=== PATIENT | female | born 1945 | race Two or more races ===

== ENCOUNTER 2024-03-30 13:37 | Inpatient (IN) | payer MEDICARE, MEDICAID, SELFPAY ==
[2024-03-30] VITALS (10 sets, daily range): BP systolic 108–129; BP diastolic 58–98; PULSE 62–127; RESP 13–25; TEMP 33.6–35.9; O2SAT 97–100; BMI 17.7
--- NOTE | 2024-03-30 13:41 | XR_ITS ---
Examination: AP chest single view TECHNIQUE: AP upright portable chest single view Exam date and time: March 30, 2024 1421 hours INDICATIONS: Shortness of breath today. FINDINGS: Early left perihilar pneumonia Normal heart size No pulmonary edema The osseous structures are demineralized IMPRESSION: Early left perihilar pneumonia
--- NOTE | 2024-03-30 13:41 | XR_ITS ---
Examination: CT brain head without contrast. 2-D sagittal coronal reconstructions Date and time of exam:March 30, 2024 at 1449 hours INDICATIONS: Onset altered mental status today CTDI: vol (mGy):43.9 DLP: (mGycm):881 Technique: Multiple CT axial sections of the brain have been obtained, 5 mm slice thickness. Contrast has not been administered. 2-D sagittal, coronal reconstructions have been obtained Low dose protocols were performed. One or more of the following dose reduction techniques were used; automated exposure control, adjustment of the mA and/or KV according to patient size, use of iterative reconstruction technique. Findings: No significant ventricular enlargement. Intra-axial or extra-axial hemorrhage density is not seen. No mass effect or midline shift Basal cisterns are not remarkable. Fourth ventricle is midline. Cranial vault intact. Impression: Negative for acute hemorrhage, mass effect or midline shift Advise clinical correlation and follow-up accordingly
--- NOTE | 2024-03-30 13:41 | EKG_ITS ---
[facility] Test Date: 2024-03-30 Pat Name: SUSAN ABEL Department: Room: - Gender: Female Signals Intelligence Analyst: : 1945 Requested By: Samuel Elias Order Number: [id number] Reading MD: Samuel Elias Measurements Intervals [place] Rate: 61 P: 80 TN: 155 QRS: 89 QRSD: 75 T: 79 QT: 405 QTc: 408 Interpretive Statements SINUS RHYTHM LOW QRS VOLTAGE IN EXTREMITY LEADS [QRS DEFLECTION < 0.5 mV IN LIMB LEADS] SEPTAL MYOCARDIAL INFARCTION , PROBABLY OLD [40+ ms Q WAVE IN V1/V2] No previous ECG available for comparison /store/S0/[id number].pdf
[2024-03-30 13:58] LABS: Base Excess 2 (-3-3); HCO3 25 mEq/L (20-26); Inspired O2, VO2 Liters 13 L/min; O2 Saturation 100 % (91-98); PCO2 34 mmHg (32.0-48.0); PO2 300 mmHg (83-108); pH, Arterial 7.48 (7.35-7.45)
[2024-03-30 14:01] LABS: Puncture Site Right Radial
[2024-03-30 14:02] LABS: Allen Test Performed/OK
[2024-03-30 14:13] LABS: Lactate (Lactic Acid) 1.8 mMol/L (0.4-2.0)
[2024-03-30 14:17] LABS: Basophils % (Auto) 0 % (0-2.5); Eosinophils % (Auto) 0 % (0-10); Hematocrit 27.9 % (36.0-46.0); Hemoglobin 9.5 g/dL (12.0-16.0); Immature Granulocytes % (Auto) 0 % (0-0); Immature Granulocytes Auto 0.06 Thou/mm3 (0.00-0.00); Lymphocytes # (Auto) 0.7 Thou/mm3 (1.0-4.8); Lymphocytes % (Auto) 5 % (10-50); Mean Corpuscular HGB Conc 34.1 g/dl (31.0-37.0); Mean Corpuscular Hemoglobin 31.4 pg (25.0-35.0); Mean Corpuscular Volume 92 fL (80-100); Monocytes # (Auto) 0.3 Thou/mm3 (0.0-0.8); Monocytes % (Auto) 2 % (0-12); Neutrophils % (Auto) 93 % (37-80); Nucleated Red Blood Cell % 0 /100 WBC (0); Platelet Count 176 Thou/mm3 (140-440); RDW Standard Deviation 49.5 fL (36.4-46.3); Red Blood Count 3.03 Miln/mm3 (4.00-5.20); White Blood Count 15.1 Thou/mm3 (3.6-11.0)
[2024-03-30] MEDS: SODIUM CHLORIDE 0.9% 1000 ML 1,000 ML 999 ML IV (14:26)
[2024-03-30] MEDS: cefTRIAXone/D5w 1gm IV premix 50 ML IV (14:29)
[2024-03-30 14:33] LABS: Sed Rate (ESR) 78 mm/hr (0-30)
--- NOTE | 2024-03-30 14:34 | PD.EDAMS ---
Altered Mental Status RME/HPI General Chief Complaint: Altered Mental Status Stated Complaint: AMS; LOW GLUCOSE Time Seen by Provider: 03/30/24 13:40 Arrival date/time: 03/30/24 13:37 RME / HPI RME / HPI narrative: This section includes all my notes and documentations, including HPI, PE, MDM, Procedure Notes, and PLAN. Samuel Norman MD HPI: 79 year old female with history of CVA with residual right sided deficits x 2 years ago, nonverbal at baseline, presents to the ED BIBA from home for altered mental status today. Per medics, family reported patient was found unresponsive on the couch. When they arrived, patient was a GCS of 3, maintaining her airway, hypotensive at 82 over palp, and had a BS of 13. Was given D10 and repeat BS was 96. On arrival to ED patient is moaning. No further history obtainable. There was no obvious trauma. Patient was last known well at 03:00 am. I obtained more history from the daughter when she arrived and I talked to her. Normally, patient has been able to ambulate with a walker despite her right-sided weakness, worsening noted in the past couple weeks. Normally, she is not verbal. They communicate with gestures and sign language. ROS: Unobtainable due to AMS. Physical Exam: General: Patient does not open her eyes. Patient makes only sounds, no words. Patient localizes to pain. Eyes: Conjunctivae and lids clear. EOMI. PERRL. ENT: No nasal congestion. Neck: Supple. No carotid bruit. No JVD. Heart: RRR. Lungs: No respiratory distress. Good air movement. No rhonchi, wheezing, rales. Abdomen: Soft and nontender. Legs: No clubbing, cyanosis, edema. Skin: Warm and dry. Neuro: GCS 8. Difficult exam due to AMS. Musculoskeletal: All major joints and bones are not tender with no limited ROM. I reviewed EMS notes. I reviewed all diagnostic test results. My interpretation of the EKG is sinus rhythm with nonspecific ST-T changes. My interpretation of the chest x-ray is infiltrates. My review of the head CT report is no acute findings. My review of the head/neck CTA report is 90% plus stenosis at right carotid bifurcation proximal to right internal carotid artery. Blood tests and urine tests remarkable for WBC 15.1, ESR 78, BUN 43, Cr 0.6, LA 1.8, Mg 1.4, troponin 0.109, CRP 15.4, and TSH 17.57. At this point, diagnoses include AMS, hypoglycemia, hypomagnesemia, elevated troponin, elevated TSH, pneumonia, hypotension, sepsis. Treatment here included Rocephin, Zithromax, IV fluid, MgSO4 2 gram IV. No significant improvement noted subjectively and objectively. I discussed the case with our telehealth neurologist and our hospitalist. About the presentation and exam and diagnostics and treatments here. And need of further care in the hospital. Will accept the patient. Samuel Norman MD Related Data Allergies Allergy/AdvReac Type Severity Reaction Status Date / Time No Known Allergies Allergy Verified 03/30/24 14:19 Review of Systems Review of Systems Systems Reviewed: All systems reviewed, normal except as documented Past Medical History Past Medical History NEUROLOGIC: Positive Cerebrovascular Accident (Jun 2023 Right deficeit) CARDIAC: Negative Cardiac Disorders RESPIRATORY: Negative Asthma GENITOURINARY: Negative Renal Disease ENDOCRINE: Positive Diabetes Mellitus Type 2 HEMATOLOGIC: Negative Sickle Cell Disease Social History SMOKING STATUS: Unknown if ever smoked ED Exam Narrative Physical exam: As noted in HPI Course Quality Measures Suspected type of Stroke: Non Acute Tenecteplase given: Reason(s) TPA not given: Outside the time window not given stroke Orders Category Date Time Status Bedside COVID-19 Antigen Test NOW Care 03/30/24 13:40 Active Bedside Influenza A&B Antigen Test NOW Care 03/30/24 13:[address] Screening NOW Care 03/30/24 14:51 Active EKG (ED ONLY) *Do not use* NOW Care 03/30/24 13:41 Completed [place] Routine Care 03/30/24 13:40 Ordered Saline [Insert IV] NOW Care 03/30/24 13:[address] angio stroke protocol Stat Exams 03/30/24 15:[address] head/brain wo con Stat Exams 03/30/24 13:41 Completed EKG (ED Only) Stat Exams 03/30/24 13:41 Draft XR chest 1V portable Stat Exams 03/30/24 13:41 Completed ABG [Arterial Blood Gas] Stat Lab 03/30/24 13:55 Completed Acetaminophen Stat Lab 03/30/24 14:05 Completed Alcohol, Blood Medical Stat Lab 03/30/24 14:05 Completed Ammonia Stat Lab 03/30/24 14:05 Completed Amylase Stat Lab 03/30/24 14:05 Completed BNP [B-Type Natriuretic Peptide] Stat Lab 03/30/24 14:05 Completed Blood Culture (Lab) Stat Lab 03/30/24 13:41 Ordered CBC Stat Lab 03/30/24 14:05 Completed CK [Creatine Kinase] Stat Lab 03/30/24 14:05 Completed CMP [Comprehensive Metabolic Panel] Stat Lab 03/30/24 14:05 Completed CRP [C-Reactive Protein] Stat Lab 03/30/24 14:05 Completed Drug Screen,Urine Stat Lab 03/30/24 15:58 Received ESR [Sed Rate (ESR)] Stat Lab 03/30/24 14:05 Completed Lactate (Lactic Acid) Stat Lab 03/30/24 14:05 Completed Lipase Stat Lab 03/30/24 14:05 Completed Magnesium Stat Lab 03/30/24 14:05 Completed Procalcitonin Stat Lab 03/30/24 14:05 Completed RSV [Respiratory Syncytial Virus Ag] Stat Lab 03/30/24 13:42 Ordered Salicylate Stat Lab 03/30/24 14:05 Completed TSH [Thyroid Stimulating Hormone] Stat Lab 03/30/24 14:05 Completed Troponin I Stat Lab 03/30/24 14:05 Completed UA [Urinalysis] Stat Lab 03/30/24 15:58 Completed Azithromycin Inj [Zithromax Inj] 500 mg Med 03/30/24 14:43 Discontinued Sodium Chloride 0.9% 250 ml [Ns] 250 ml IV X1 Magnesium Sulfate 2 GM Ivpb [Magnesium Sulfate Ivpb] Med 03/30/24 15:43 Active 2 gm in 50 ml IV X1 Sodium Chloride 0.9% 1000 ml [Ns] 1,000 ml Med 03/30/24 13:48 Discontinued IV 999 mls/hr cefTRIAXone/D5w 1gm IV premix [Rocephin/D5w 1gm IV Med 03/30/24 13:48 Discontinued premix] 50 ml IV X1 Reevaluation(s) Reevaluation #1: I spoke with patients daughter and obtained additional history Time: 15:00 Vital Signs Vital signs: Vital Signs Temperature 93.8 F L 03/30/24 13:45 Pulse Rate 62 03/30/24 13:45 Respiratory Rate 16 03/30/24 13:45 Blood Pressure 111/72 03/30/24 13:45 Pulse Oximetry (%) 100 03/30/24 13:45 Oxygen Delivery Method Room Air 03/30/24 13:45 Pulse ox is 100% on room air which is adequate. Altered Mental Status MDM Narrative MDM Narrative:: Alejandra Auguste am scribing for and in the presence of Dr. Norman. Patient data External records reviewed:: EMS form Clinical information provided by:: EMS and family (Daughter- adds to hpi) Social determinants that could affect healthcare access:: none Patient has the following chronic illnesses:: History of CVA How is presenting disease/condition affected by chronic disease/condition?: exacerbated by Evaluation data The following diagnostics were reviewed and interpreted by me:: lab results, radiology exam(s) and EKG tracing(s) (My interpretation of the EKG is: Sinus rhythm (61 bpm) with nonspecific ST-T changes. Samuel Norman MD) Lab and/or radiology exams considered but not ordered:: None Interpretation Summary: Hypoglycemia, hypomagnesemia, elevated troponin, elevated TSH, sepsis Medications / Prescriptions Medications or Prescriptions considered but not ordered:: None Medication administrations:: Medication Administration History Acetaminophen (Acetaminophen 325 Mg Tablet) 650 mg PO Q6H PRN PRN Reason: Fever >101.5 Stop: 04/29/24 16:16 Acetaminophen (Acetaminophen 325 Mg Tablet) 650 mg PO Q6H PRN PRN Reason: PAIN SCALE 1-3 (mild Stop: 04/29/24 16:16 Dextrose (Dextrose 50%-Water Inj 50 Ml Syringe) 25 ml IV Q15MIN PRN PRN Reason: BG 50-70 responsive npo pt Stop: 04/29/24 16:21 Dextrose (Dextrose 50%-Water Inj 50 Ml Syringe) 50 ml IV Q15MIN PRN PRN Reason: BG <50 OR BG <70 & pt unresponsive Stop: 04/29/24 16:21 Folic Acid (Folic Acid Inj 1 Mg/0.2 Ml) 1 mg IVP QDAY ROGER Stop: 04/29/24 16:44 Glucagon (Glucagon Inj 1 Mg Vial) 1 mg IM Q15MIN PRN PRN Reason: BG <70, and no IV access Magnesium Sulfate (Magnesium Sulfate Ivpb) 2 gm in 50 mls @ 25 mls/hr IV X1 ONE Stop: 03/30/24 17:42 Last Admin: 03/30/24 16:45 Dose: 25 mls/hr Documented By: THIERNO Magnesium Sulfate (Magnesium Sulfate Ivpb) 2 gm in 50 mls @ 25 mls/hr IV X1 ONE Stop: 03/30/24 18:29 Potassium Chloride (Kcl Ivpb) 10 meq in 100 mls @ 100 mls/hr IV Q1H ROGER Stop: 03/30/24 20:29 Dextrose/Sodium Chloride (D5-1/2ns) 1,000 mls @ 100 mls/hr IV BID [facility] Stop: 04/29/24 16:47 Insulin Human Lispro (Insulin Lispro (Admelog) 1 Unit/0.01 Ml Unit) 0 unit SC Q6HR ROGER; Protocol Stop: 04/29/24 16:59 Ondansetron HCl (Ondansetron Inj 2 Mg/Ml Inj 2 Ml) 4 mg IV Q6H PRN; Protocol PRN Reason: NAUSEA OR VOMITING Stop: 04/29/24 16:16 Pantoprazole Sodium (Pantoprazole Inj 40 Mg Vial) 40 mg IVP QDAY [facility] Stop: 04/29/24 16:29 Thiamine HCl (Thiamine Inj 100 Mg/Ml Vial 2 Ml) 100 mg IVP QDAY [facility] Stop: 04/29/24 16:44 Zinc Sulfate (Zinc Sulfate 220 Mg Capsule) 220 mg PO QDAY [facility] Stop: 04/04/24 16:44 Discontinued Medications Aspirin (Aspirin Ec 81 Mg Tabec) 81 mg PO QDAY [facility] Stop: 04/29/24 16:44 Ceftriaxone Sodium/Dextrose (Rocephin/D5w 1gm Iv Premix) 50 mls @ 100 mls/hr IV X1 ONE Stop: 03/30/24 14:17 Last Infusion: 03/30/24 16:10 Dose: Infused Documented By: Admin: 03/30/24 14:29 Dose: 100 mls/hr Documented By: GONZALO Sodium Chloride (Ns) 1,000 mls @ 999 mls/hr IV .Q1H1M ONE Stop: 03/30/24 14:48 Last Admin: 03/30/24 14:26 Dose: 999 mls/hr Documented By: GONZALO Azithromycin 500 mg/ Sodium (Chloride) 250 mls @ 250 mls/hr IV X1 ONE Stop: 03/30/24 15:42 Last Admin: 03/30/24 17:01 Dose: 250 mls/hr Documented By: THIERNO Sodium Chloride (Ns) 250 mls @ 999 mls/hr IV .Q16M ONE Stop: 03/30/24 16:32 Last Admin: 03/30/24 17:01 Dose: 999 mls/hr Documented By: THIERNO Sodium Chloride (Ns) 1,000 mls @ 80 mls/hr IV .[id number] ROGER Stop: 04/29/24 16:41 Insulin Human Lispro (Insulin Lispro (Admelog) 1 Unit/0.01 Ml Unit) 0 unit SC ACHS [facility]; Protocol Stop: 04/29/24 16:59 See above Consultations Consultation(s) initiated? (list below): Yes Consultation #1 (Physician, Specialty, Details): I spoke with teleneurologist Dr. Grayson. States patient is not a tpa candidate as her LKW is above the 4.5 hour window. Consultation #2 (Physician, Specialty, Details): I spoke with hospitalist Dr. Manning regarding admission. Discussed patients PMHx, HPI, ED course, exam findings, labs, and radiology results. The hospitalist agree to accept the patient for admission. Time: 16:17 Diagnosis Differential diagnosis altered mental status: alcoholic intoxication, altered mental status, delirium, dementia, hypoglycemia, hyponatremia, subarachnoid hemorrhage and sepsis Most likely diagnosis given after review of the tests above:: Altered mental status Hypoglycemia Pneumonia Hypomagnesemia Elevated TSH Elevated troponin Admission Indicated Admission indicated?: indicated Explain why admission is indicated or not indicated:: Sepsis and electrolyte abnormalities Admission Request Was there a request for admission?: Yes Admission Attestation Admission request attestation: Discussed case with Hospitalist service regarding admission. Discussed patients ED course, exam findings, labs, and radiology results. The Hospitalist [agrees,declines] to accept the patient for admission. Disposition Plan Disposition Plan: Admit Critical Care Time Critical Care Time Critical Care Time: Yes Total Critical Care Time (min.): 35 Attestation: The high probability of sudden, clinically significant deterioration in the patient's condition required the highest level of my preparedness to intervene urgently. The services I provided to this patient were to treat and/or prevent clinically significant deterioration. Services included the following: chart data review, reviewing nursing notes and/or old charts, documentation time, information technology consultant collaboration regarding findings and treatment options, medication orders and management, direct patient care, vital sign assessments and ordering, interpreting and reviewing diagnostic studies and lab tests. Aggregate critical care time includes only time during which I was engaged in work directly related to the patient's care, as described above, whether at bedside or elsewhere in the Emergency Department. It did not include time spent performing other reported procedures or the services of residents, students, nurses or physician assistants. Discharge Plan Plan Patient Disposition: Admit Acute Care w/in Hospital Problem List Clinical Impression: Altered mental status, Hypoglycemia, Pneumonia, Hypomagnesemia, Elevated TSH, Elevated troponin
[2024-03-30 14:47] LABS: Ammonia 16 uMol/L (11-32)
[2024-03-30 14:53] LABS: B-Type Natriuretic Peptide 69 pg/mL (0-100)
--- NOTE | 2024-03-30 15:12 | XR_ITS ---
Examination: CTA carotids with intravenous contrast CTA brain, head with intravenous contrast. 2-D sagittal, coronal reconstructions. 3-D reconstructions. Exam date and time: March 30, 2024 1521 hours INDICATIONS: Stroke alert, onset focal neurologic deficit today CTDI: vol (mGy) 13.8 DLP: (mGycm) 379 Technique: Multiple CTA axial brain, head carotid images post intravenous contrast injection 75 cc, [id number]. 2-D sagittal, coronal reconstructions. 3-D reconstructions, 3-D post processing including vascular maximum intensity projection images. Low dose protocols were performed. One or more of the following dose reduction techniques were used; automated exposure control, adjustment of the mA and/or KV according to patient size, use of iterative reconstruction technique. Findings: Small focus parenchymal disease right upper lobe axial image 216 90% stenosis right carotid bifurcation and proximal right internal carotid artery Distal right internal carotid artery including petrous portion intact No significant left common carotid carotid bifurcation or internal carotid artery stenoses Dominant right vertebral artery with no critical stenoses No large vessel occlusions involving M1 segments middle cerebral arteries and anterior cerebral arteries basilar artery or posterior cerebral arteries IMPRESSION: 90% plus stenosis right carotid bifurcation proximal right internal carotid artery No cerebral large vessel arterial occlusions
[2024-03-30 15:37] LABS: Acetaminophen < 2.0 mcg/mL (10.0-20.0); Alanine Aminotransferase 27 U/L (10-49); Albumin, Serum 3.2 gm/dL (3.4-4.8); Albumin/Globulin Ratio 1.1 (1.2-2.2); Alcohol, Blood Medical < 3.0 mg/dL (0-10.0); Alkaline Phosphatase 141 U/L (46-116); Amylase 45 U/L (30-118); Anion Gap 10 (7-16); Aspartate Amino Transferase 31 U/L (0-34); BUN/Creatinine Ratio 72 Ratio (12-20); Bilirubin,Total 0.4 mg/dL (0.3-1.2); Blood Urea Nitrogen 43 mg/dL (9-23); C-Reactive Protein 15.4 mg/dL (0.0-0.9); Calcium 8.7 mg/dL (8.3-10.6); Calcium (Corrected) 9.3 mg/dL (8.5-10.1); Carbon Dioxide 23.6 mMol/L (20.0-31.0); Chloride 110 mMol/L (98-107); Creatine Kinase 82 U/L (34-171); Creatinine (Component) 0.6 mg/dL (0.6-1.3); Globulin 2.8 gm/dL (2.3-3.5); Glucose 155 mg/dL (74-106); Lipase 34 U/L (12-53); Magnesium 1.4 mg/dL (1.6-2.6); Osmolality,Calculated 300 (275-295); Potassium 3.4 mMol/L (3.4-5.1); Procalcitonin 1.35 ng/ml (0.0-0.49); Salicylate < 3.0 mg/dL; Sodium 144 mMol/L (136-145); Thyroid Stimulating Hormone 17.57 uIU/mL (0.55-4.78); eGFR > 60 See Note
--- NOTE | 2024-03-30 15:37 | PD.TNEURO ---
Tele Neuro Consultation Consultation Date 03/30/24 Most Recent Vital Signs Last Vital Signs Temp 93.8 F L 03/30/24 13:45 Pulse 62 03/30/24 13:45 Resp 16 03/30/24 13:45 BP 111/72 03/30/24 13:45 Pulse Ox 100 03/30/24 13:45 O2 Del Method Room Air 03/30/24 13:45 Consultation Narrative [facility] Tele[facility]urology Consult [facility] Patient Name:???Maricruz Rudd Date of :???1945 Identification Number:??? Date of Service:???03/30/2024 15:18:31 Diagnosis:?R41.0 - Disorientation, unspecified Impression: ?79 y/o woman with h/o HTN, DM and stroke (residual right sided weakness) who presents to the ED with AMS and hypoglycemia (13) and hypothermia. No focal deficits on exam. Our recommendations are outlined below. Recommendations: ? Stroke/Telemetry Floor ? Neuro Checks ? Bedside Swallow Eval ? DVT Prophylaxis ? IV Fluids, Normal Saline ? Head of Bed 30 Degrees ? Euglycemia and Avoid Hyperthermia (PRN Acetaminophen) ? Initiate or continue Aspirin 81 MG daily ?ICU admission ?Hypothermia/Sepsis work-up as per ED and primary team Sign Out: ? Discussed with Emergency Department Provider Advanced Imaging: CTA Head and Neck Completed. Advanced neuroimaging reviewed and discussed with the ED attending (Dr. Norman) . No proximal intracranial LVO and no carotid occlusion as per my review. Not a thrombectomy candidate. Formal radiology read pending and to be f/u by the ED attending. Please call with any questions. Metrics: Last Known Well: 03/30/2024 03:00:00 Dispatch Time: 03/30/2024 15:18:31 Arrival Time: 03/30/2024 11:45:00 Initial Response Time: 03/30/2024 15:20:46Symptoms: AMS. Initial patient interaction: 03/30/2024 15:28:42 NIHSS Assessment Completed: 03/30/2024 15:30:00Patient is not a candidate for Thrombolytic. Thrombolytic Medical Decision: 03/30/2024 15:30:02Patient was not deemed candidate for Thrombolytic because of following reasons: LKW outside 4.[address] head showed no acute hemorrhage or acute core infarct. Primary Provider Notified of Diagnostic Impression and Management Plan on: 03/30/2024 15:30:20 History of Present Illness:Patient is a 79 year old Female. Patient was brought by EMS for symptoms of AMS. 79 y/o woman with h/o HTN, DM and stroke (residual right sided weakness) who presents to the ED with AMS and hypoglycemia (13) and hypothermia. Emergent telestroke consult requested. Last reported normal at 0300 as per patient's daughter at bedside. . Patient is bed bound at baseline and nonverbal. CT brain, CTA head and CTA neck reviewed and case discussed with Dr. Norman (ED attending) at the bedside. Medications: No Anticoagulant use? No Antiplatelet use Reviewed EMR for current medications Allergies:? Allergies Unable To Obtain Due To:?Patient Is Confused Social History: Unable To Obtain Due To Patient Status :?Patient Is Confused Family History: Family History Cannot Be Obtained Because:Patient Is Confused ROS :?ROS Cannot Be Obtained Because:? Patient Is Confused Past Surgical History: Past Surgical History Cannot Be Obtained Because: Patient Is Confused Examination: BP(129/76),?Pulse(91),?Blood Glucose(211) 1A: Level of Consciousness - Movements to Pain?+ 2 1B: Ask Month and Age - Could Not Answer Either Question Correctly?+ 2 1C: Blink Eyes & Squeeze Hands - Performs 0 Tasks?+ 2 2: Test Horizontal Extraocular Movements - Normal?+ 0 3: Test Visual Myesr - No Visual Loss?+ 0 4: Test Facial Palsy (Use Grimace if Obtunded) - Normal symmetry?+ 0 5A: Test Left Arm Motor Drift - No Effort Against [place]?+ 3 5B: Test Right Arm Motor Drift - No Effort Against [place]?+ 3 6A: Test Left Leg Motor Drift - No Effort Against [place]?+ 3 6B: Test Right Leg Motor Drift - No Effort Against [place]?+ 3 7: Test Limb Ataxia (FNF/Heel-Chahal) - Does Not Understand?+ 0 8: Test Sensation - Complete Loss: Cannot Sense Being Touched At All?+ 2 9: Test Language/Aphasia - Mute/Global Aphasia: No Usable Speech/Auditory Comprehension?+ 3 10: Test Dysarthria - Mute/Anarthric?+ 2 11: Test Extinction/Inattention - No abnormality?+ 0 NIHSS Score:?25 Pre-Morbid Modified Zenobia Scale:5 Points = Severe disability; bedridden, incontinent and requiring constant nursing care and attention Spoke with :?Dr. Norman This consult was conducted in real time using interactive audio and video technology. Patient was informed of the technology being used for this visit and agreed to proceed. Patient located in hospital and provider located at home/office setting. Patient is being evaluated for possible acute neurologic impairment and high probability of imminent or life-threatening deterioration. I spent total of 20 minutes providing care to this patient, including time for face to face visit via telemedicine, review of medical records, imaging studies and discussion of findings with providers, the patient and/or family. Dr Bhavin Grayson [facility] For Inpatient follow-up with [facility] physician please call [facility] at . As we are not an outpatient service for any post hospital discharge needs please contact the hospital for assistance. If you have any questions for the [facility] physicians or need to reconsult for clinical or diagnostic changes please contact us via [facility] at .
[2024-03-30 15:39] LABS: Troponin I 0.109 ng/mL (0.0-0.045)
[2024-03-30 16:04] LABS: Collection Type, Urine Clean Catch
[2024-03-30 16:15] LABS: Bilirubin,Urine Negative (Negative); Blood,Urine Negative (Negative); Clarity,Urine Clear (Clear/Hazy); Color,Urine Yellow (Lt Yel-Yel); Glucose, Urine Trace (Negative); Ketones,Urine Negative (Negative); Leukocyte Esterase,Urine Negative (Negative); Nitrite,Urine Negative (Negative); Protein,Urine 1+ (Neg - Trace); RBC,Urine 1 /hpf (0-3); Specific Gravity,Urine 1.028 (1.001-1.035); Squamous Epithelial Cell,Urine < 1 /hpf (0-5); WBC,Urine 1 /hpf (0-5)
--- NOTE | 2024-03-30 16:27 | XR_ITS ---
Examination: CT abdomen and pelvis without contrast. Coronal 3-D reconstructions. Sagittal 2-D reconstructions. Date and time of exam:March 30, 2024 at 1735 hrs. Indications: Difficulty urinating today, altered mental status CTDI: vol (mGy): 4.13 DLP: (mGycm): 218 Technique: Axial images of the abdomen have been obtained, 3 mm slice thickness Intravenous contrast material has not been administered. Low dose protocols were performed. One or more of the following dose reduction techniques were used; automated exposure control, adjustment of the mA and/or KV according to patient size, use of iterative reconstruction technique. Findings: Mild right significant left base pneumonia No focal liver lesions Gallbladder is abnormally distended Common bile duct 7 mm No definite pancreatic mass Heavy abdominal aortic calcification no aneurysmal dilatation No hydronephrosis No pericecal inflammatory change Moderate to large amounts of stool throughout the colon especially rectosigmoid, with prominent rectal wall thickening Distended urinary bladder Atrophic uterus No adnexal mass Moderate osteopenia Impression: Mild right significant left base pneumonia Abnormally distended gallbladder, recommend hepatobiliary sonography follow-up No hydronephrosis Moderate to large amounts of stool throughout the colon, especially rectosigmoid with prominent rectal wall thickening, differential would include proctitis, rectal tumor not excluded, recommend direct inspection Distended urinary bladder
--- NOTE | 2024-03-30 16:36 | PD.RESHP ---
Documentation for date of: 03/30/24 HPI History of Present Illness Chief complaint: altered mental status History of present illness: Patient is non-verbal hx taken from daughter and chart review 79 y/o F with PMHx of CVA 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 Per daughter patient was able to do activities of daily living 2 months ago, including walking with a walker, eating by herself, but has progressively declined until 1 week ago were she acutely declined and developed urinary incontinence. She also has decreased po intake, daughter states patient has been hiding food under the couch. Today around 3am patient was found by daughter unresponsive and called EMS. On arrival patient was found with GCS of 3 and with BS of 13 was given D10 and repeat BS was 96. Patient is non-verbal at baseline and communicate with hand gestures. ED course: On arrival Vital significant for hypothermia 93.8, rest of vitals nl, Labs significant for hypoglycemia of 13 which after D10 was repeated and increased to 96. CXR showed some pneumonia. UA was negative. EKG is sinus rhythm, Head CT was negative for Negative for acute hemorrhage, mass effect or midline shift, Head/Neck CTA showed 90% plus stenosis right carotid bifurcation proximal right internal carotid artery, No cerebral large vessel arterial occlusions PMHx: CVA, Hypertension, HLD, Hypothyroidism, Diabetes PSHx: none Social Hx: unknown Review of Systems Review of Systems ROS Unobtainable: unobtainable due to mental status and unobtainable due to medical condition Exam Vital Signs Temp Pulse Resp BP Pulse Ox O2 Del Method O2 Flow Rate 92.5 F L 72 13 129/98 H 100 Nasal Cannula 6 03/30/24 15:45 03/30/24 16:29 03/30/24 16:29 03/30/24 16:29 03/30/24 16:29 03/30/24 16:29 03/30/24 16:29 Narrative Exam Physical Exam GENERAL: NAD, frail, cachectic, temporal wasting HEENT: dry mucosa. Eyes open, symmetrical, & clear CARDIO: No chest pain on palpation. Heart RRR, no obvious murmurs PULM: No noted coughing/dyspnea. Lungs CTA B/L, no R/W/R GI: Abdomen soft, nondistended, no pain on palpation. BSx4 URO/CREATIVE PRODUCER:: No further abnormalities noted. Phelps catheter SKIN/MSK/EXT: pressure ulcer on sacrum and buttocks, no pain on palpation. Pedal pulses present B/L NEURO: unable to assess Results: Labs 04/02/24 04:40 04/02/24 04:40 Labs: Short CBC 03/30/24 Range/Units 14:05 WBC 15.1 H (3.6-11.0) Thou/mm3 Hgb 9.5 L (12.0-16.0) g/dL Hct 27.9 L (36.0-46.0) % Plt Count 176 (140-440) Thou/mm3 BMP 03/30/24 14:05 Sodium 144 Potassium 3.4 Chloride 110 H Carbon Dioxide 23.6 BUN 43 H Creatinine 0.6 Glucose 155 H Calcium 8.7 Cardiac Enzymes 03/30/24 Range/Units 14:05 Total Creatine Kinase 82 (34-171) U/L Troponin I 0.109 H* (0.0-0.045) ng/mL Liver Function 03/30/24 Range/Units 14:05 Total Bilirubin 0.4 (0.3-1.2) mg/dL AST 31 (0-34) U/L ALT 27 (10-49) U/L Alkaline Phosphatase 141 H (46-116) U/L Albumin 3.2 L (3.4-4.8) gm/dL Urine 03/30/24 Range/Units 15:58 Urine Color Yellow (Lt Yel-Yel) Urine Clarity Clear (Clear/Hazy) Urine pH 6.0 (5.0-7.0) Ur Specific [place] 1.028 (1.001-1.035) Urine Protein 1+ A (Neg - Trace) Urine Glucose (UA) Trace (Negative) ABG Interpretation ABG results: 03/30/24 13:55 ABG pH 7.48 H ABG pCO2 34 ABG pO2 300 H ABG HCO3 25 ABG O2 Saturation 100 H ABG Base Excess 2 Quality Measures Quality Measures stroke Suspected type of Stroke: Unknown at this time Tenecteplase given: Reason(s) Tenecteplase not given: Outside the time window not given Rehab services: PT evaluation ordered VTE Prophylaxis: pharmaceutical Antithrombotic by day 2:: not indicated (describe) Statin ordered: not ordered Anticoagulation ordered for A-fib or flutter (current or hx): not indicated Advance care planning discussed with:: patient and child Medications Home Medications and Allergies Home Medications ?Medication ?Instructions ?Recorded ?Confirmed ?Type ascorbic acid (vitamin C) 1,000 mg 1,000 mg PO DAILY 03/31/24 03/31/24 History tablet atorvastatin 40 mg tablet 40 mg PO HS 03/31/24 03/31/24 History cholecalciferol (vitamin D3) 25 25 mcg PO DAILY 03/31/24 03/31/24 History mcg (1,000 unit) capsule cyanocobalamin (vitamin B-12) 3,000 mcg PO DAILY 03/31/24 03/31/24 History 1,000 mcg tablet glyburide 5 mg tablet 5 mg PO DAILY 03/31/24 03/31/24 History levothyroxine 50 mcg tablet 50 mcg PO HANNAH 03/31/24 03/31/24 History metformin 625 mg tablet 625 mg PO TID 03/31/24 03/31/24 History Allergies Allergy/AdvReac Type Severity Reaction Status Date / Time No Known Allergies Allergy Verified 03/30/24 14:19 Visit Medications Acetaminophen (Acetaminophen 325 Mg Tablet) 650 mg PO Q6H PRN PRN Reason: Fever >101.5 Stop: 04/29/24 16:16 Acetaminophen (Acetaminophen 325 Mg Tablet) 650 mg PO Q6H PRN PRN Reason: PAIN SCALE 1-3 (mild Stop: 04/29/24 16:16 Dextrose (Dextrose 50%-Water Inj 50 Ml Syringe) 25 ml IV Q15MIN PRN PRN Reason: BG 50-70 responsive npo pt Stop: 04/29/24 16:21 Dextrose (Dextrose 50%-Water Inj 50 Ml Syringe) 50 ml IV Q15MIN PRN PRN Reason: BG <50 OR BG <70 & pt unresponsive Stop: 04/29/24 16:21 Glucagon (Glucagon Inj 1 Mg Vial) 1 mg IM Q15MIN PRN PRN Reason: BG <70, and no IV access Magnesium Sulfate (Magnesium Sulfate Ivpb) 2 gm in 50 mls @ 25 mls/hr IV X1 ONE Stop: 03/30/24 17:42 Magnesium Sulfate (Magnesium Sulfate Ivpb) 2 gm in 50 mls @ 25 mls/hr IV X1 ONE Stop: 03/30/24 18:29 Potassium Chloride (Kcl Ivpb) 10 meq in 100 mls @ 100 mls/hr IV Q1H [facility] Stop: 03/30/24 20:29 Insulin Human Lispro (Insulin Lispro (Admelog) 1 Unit/0.01 Ml Unit) 0 unit SC ACHS [facility]; Protocol Stop: 04/29/24 16:59 Ondansetron HCl (Ondansetron Inj 2 Mg/Ml Inj 2 Ml) 4 mg IV Q6H PRN; Protocol PRN Reason: NAUSEA OR VOMITING Stop: 04/29/24 16:16 Pantoprazole Sodium (Pantoprazole Inj 40 Mg Vial) 40 mg IVP QDAY [facility] Stop: 04/29/24 16:29 Discontinued Medications Ceftriaxone Sodium/Dextrose (Rocephin/D5w 1gm Iv Premix) 50 mls @ 100 mls/hr IV X1 ONE Stop: 03/30/24 14:17 Last Infusion: 03/30/24 16:10 Dose: Infused Sodium Chloride (Ns) 1,000 mls @ 999 mls/hr IV .Q1H1M ONE Stop: 03/30/24 14:48 Last Admin: 03/30/24 14:26 Dose: 999 mls/hr Azithromycin 500 mg/ Sodium (Chloride) 250 mls @ 250 mls/hr IV X1 ONE Stop: 03/30/24 15:42 Sodium Chloride (Ns) 250 mls @ 999 mls/hr IV .Q16M ONE Stop: 03/30/24 16:32 Assessment & Plan Plan 79 y/o F with PMHx of CVA 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 Per daughter patient was able to do activities of daily living 2 months ago, including walking with a walker, eating by herself, but has progressively declined until 1 week ago were she acutely declined and developed urinary incontinence. She also has decreased po intake, daughter states patient has been hiding food under the couch. Today around 3am patient was found by daughter unresponsive and called EMS. On arrival patient was found with GCS of 3 and with BS of 13 was given D10 and repeat BS was 96. Patient is non-verbal at baseline and communicate with hand gestures. #Acute metabolic encephalopathy #Hypoglycemia #Hypothermia #CVA- low suspicion likely secondary to hypoglycemia in the setting of sulfonylurea use hypothermia also likely due to hypoglycemia Per daughter patient is able to do ADLs until 2months ago where she has progressively declined and then 1 week ago she acutely declined Patient saw her PCP about 2 months ago, was not given new medications but frequency changes were made to diabetes regimen On admission was found with hypoglycemia (13) and GSC 3, improved after D10 administration to 96, and is closer to baseline Stroke protocol was activated, Head CT showed Negative for acute hemorrhage, mass effect or midline shift Head/Neck CTA: 90% plus stenosis right carotid bifurcation proximal right internal carotid artery, No cerebral large vessel arterial occlusions Tele neurology recommended DVT prophylaxis as well as Aspirin - on D5/0.45 @ 80ml/hr - Aspirin per rectum - MRI brain pending - Speech therapy eval pending - Physical therapy eval pending - Hydrocortisone 50mg x1 - BS checks q 6 hours - Neuro checks q4 hours - Neurology consulted, appreciate recommendations - aspiration precautions - HOB>30 #Leukocytosis #Possible Sepsis Patient with hypothermia, elevated CRP, procalcitonin and WBCs, with altered mental status UA is negative, CXR unlikely to be pneumonia Patient received antibiotic therapy in ED no need for Antibiotics at this time daughter states patient has been having urinary incontinence and trouble urinating - CT abdomen pelvis ordered - received 1L NS - currently on D5/0.45 NS - Urine Cx pending - blood cultures pending #Cachexia #Failure to thrive Patient has been having low PO intake for past few weeks, per daughter patient has been hiding food under the couch BMI is 17.8 - phos checks daily - folic and thiamine IV - zinc ordered - monitor for refeeding syndrome #Hypothyroidism patient has had low po intake past few weeks- months TSH found elevated - F/u Free T4 - IV levothyroxine #Hypomagnesemia - replete as needed #Diabetes - insulin sliding scale - q6 BS check - hypoglycemia protocol in place Case discussed with my senior Dr. Calvo PGY-[address] Nigel Head MD PGY-1 Disposition: Tele Fluids: D5/0.45 NS Feeding: NPO till swallow eval Thrombo prophylaxis: Heparin Gastric Ulcer prophylaxis: Pantoprazole 40 mg IV daily CODE STATUS: Full code Senior resident attestation: Patient evaluated and examined at the bedside, plan of care discussed with rest of the team including my attending physician, except as noted. #Acute encephalopathy: possibly metabolic due to hypoglycemia in the setting of sulfonylurea use and poor PO intake. #Stroke r/o: MRI pending , neuro recs appreceiated. #failure to thrive: GI consult for PEG tube placement Quresh PGY2 Attending Provider Attestation/Addendum 79-year-old female with multiple comorbidities including hypertension, hyperlipidemia, type 2 diabetes mellitus with subsequent ischemic CVA with right-sided residual deficits and aphasia who is nonverbal at baseline who brought in by family for altered mentation. Per daughter, patient was able to do activities of daily living 2 months ago including walking with her walker and feeding herself however in the past couple weeks she has been having altered mentation and then bedbound. In the ER, patient was noted to have a GCS of 3 with blood sugars of 13 subsequently received dextrose and subsequently mentation slightly improved and admitted for acute metabolic encephalopathy secondary to hypoglycemia and stroke workup. I reviewed above note and agree with findings and plans. I have also personally examined the patient with medicine team and went over assessment and plan with medical team including sports management intern and resident physician.
[2024-03-30] MEDS: Magnesium Sulfate 2 GM Ivpb 2 GM/50 ML BAG IV ×2 (16:45→20:00)
[2024-03-30] MEDS: SODIUM CHLORIDE 0.9% 250 ML 250 ML 999 ML IV (17:01)
[2024-03-30] MEDS: AZITHROMYCIN INJ 500 MG in SODIUM CHLORIDE 0.9% 250 ML 250 ML 250 MG IV (17:01)
[2024-03-30 17:57] LABS: Amphetamine/Methamp Scrn,U Negative (Negative); Barbiturate Screen,Urine Negative (Negative); Benzodiazepines Screen,Urine Negative (Negative); Benzoylecgonine Screen, Ur Negative (Negative); Fentanyl Screen,Urine Negative (Negative); Opiate Screen,Urine Negative (Negative); THC Screen,Urine Negative (Negative)
--- NOTE | 2024-03-30 18:18 | PC.LAC ---
Patient absorbent pad soiled of urine, absorbent pad changed, patient repositioned in POC, call light within reach.
[2024-03-30 18:28] LABS: Respiratory Syncytial Virus Ag Negative (Negative)
[2024-03-30 19:21] LABS: Troponin I 0.154 ng/mL (0.0-0.045)
[2024-03-30] MEDS: POTASSIUM CHL 10 mEq IVPB 10 MEQ/100 ML BAG 100 MEQ IV ×4 (19:28→23:30)
[2024-03-30] MEDS: PANTOPRAZOLE INJ 40 MG VIAL IVP (19:28)
[2024-03-30] MEDS: THIAMINE INJ 100 MG/ML VIAL 2 ML IVP (19:32)
[2024-03-30] MEDS: FOLIC ACID INJ 1 MG/0.2 ML IVP (19:33)
[2024-03-30] MEDS: DEXTROSE 5%-0.45% NS 1,000 ML 100 ML IV (19:34)
[2024-03-30 19:39] LABS: Free T4 (Free Thyroxine) 0.44 ng/dL (0.89-1.76)
[2024-03-30] MEDS: bisacodyL 10 MG SUPP PR (19:42)
[2024-03-30] MEDS: ASPIRIN 300 MG SUPP PR (19:42)
[2024-03-30] MEDS: HEPARIN SOD INJ 5000 UNIT/ML VIAL SC (19:43)
--- NOTE | 2024-03-30 20:55 | PD.IMCONS ---
HPI Data of Consult Requesting Physician: Tony Manning MD Primary Care Provider: Physician No Primary/Family Consult Narrative Reason for consult: Pain abdomen abnormal CT AP History of present illness: 79 years old female brought to the emergency room because of the altered mental status was found to have a glucose of 13 on admission and hypothermia with a temperature 93.8 She was given D10 and D50 CT head did not show any acute infarct or masses Head and neck CTA showed 90% stenosis of the right carotid bifurcation Patient does have a previous history of CVA with right-sided motor weakness which is residual nonverbal She also has a history of diabetes mellitus type 2 hypertension She did complain of abdominal pain for which CT scan of the abdomen pelvis done which showed thickening of the rectal wall as well as a lot of stool burden and impaction I been consulted cc:: cc: Tony Manning MD Review of Systems Review of Systems ROS Unobtainable: unobtainable due to medical condition Past Medical History Surgical History OTHER SURGICAL HX: As in the history of present illness Meds Home Medications and Allergies Allergies Allergy/AdvReac Type Severity Reaction Status Date / Time No Known Allergies Allergy Verified 03/30/24 14:19 Exam Vital Signs Temp Pulse Resp BP Pulse Ox O2 Del Method O2 Flow Rate 96.6 F L 113 H 20 111/77 100 Nasal Cannula 3 03/30/24 20:02 03/30/24 20:02 03/30/24 20:02 03/30/24 20:02 03/30/24 20:02 03/30/24 20:02 03/30/24 20:02 Constitutional Comments: Chronically ill-appearing Routine Respiratory Exam Comments: Normal to auscultation Routine Abdominal Exam Comments: Lower abdominal tenderness no rebound Results Labs 03/30/24 14:05 03/30/24 14:05 Labs: Short CBC 03/30/24 Range/Units 14:05 WBC 15.1 H (3.6-11.0) Thou/mm3 Hgb 9.5 L (12.0-16.0) g/dL Hct 27.9 L (36.0-46.0) % Plt Count 176 (140-440) Thou/mm3 BMP 03/30/24 14:05 Sodium 144 Potassium 3.4 Chloride 110 H Carbon Dioxide 23.6 BUN 43 H Creatinine 0.6 Glucose 155 H Calcium 8.7 Cardiac Enzymes 03/30/24 03/30/24 Range/Units 14:05 18:19 Total Creatine Kinase 82 (34-171) U/L Troponin I 0.109 H* 0.154 H* (0.0-0.045) ng/mL Liver Function 03/30/24 Range/Units 14:05 Total Bilirubin 0.4 (0.3-1.2) mg/dL AST 31 (0-34) U/L ALT 27 (10-49) U/L Alkaline Phosphatase 141 H (46-116) U/L Albumin 3.2 L (3.4-4.8) gm/dL Urine 03/30/24 Range/Units 15:58 Urine Color Yellow (Lt Yel-Yel) Urine Clarity Clear (Clear/Hazy) Urine pH 6.0 (5.0-7.0) Ur Specific [place] 1.028 (1.001-1.035) Urine Protein 1+ A (Neg - Trace) Urine Glucose (UA) Trace (Negative) ABG Interpretation ABG results: 03/30/24 13:55 ABG pH 7.48 H ABG pCO2 34 ABG pO2 300 H ABG HCO3 25 ABG O2 Saturation 100 H ABG Base Excess 2 Assessment and Plan Additional Assessment & Plan Additional Plan: # Abnormal CT scan of the abdomen pelvis showing thickening of the rectal wall and stool impaction in increased stool burden Plan GoLytely to clean the stool burden out Consider colonoscopy once patient is clear Clear liquid diet Will follow the patient Other medical problems include # Metabolic encephalopathy # ALOC # Hypoglycemia # Hypothermia # History of CVA with right-sided motor weakness # 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
[2024-03-30] MEDS: HYDROCORTISONE SOD SUCC INJ 100 MG VIAL 50 MG IV (20:57)
[2024-03-30] MEDS: LEVOTHYROXINE INJ 100 mCg VIAL 50 MCG IV (21:15)
[2024-03-31] VITALS (8 sets, daily range): BP systolic 95–112; BP diastolic 50–81; PULSE 74–123; RESP 18–21; TEMP 36–36.5; O2SAT 93–99; BMI 18.1
[2024-03-31 01:22] LABS: Troponin I 1.033 ng/mL (0.0-0.045)
[2024-03-31 02:58] LABS: Vitamin B12 > 2000 pg/mL (211-911)
--- NOTE | 2024-03-31 03:22 | PC.NURSE ---
NOTIFIED DR. VILLEGAS OF [facility] WOUNDS AND NEW ORDERS RECEIVED.
[2024-03-31] MEDS: HEPARIN SOD INJ 5000 UNIT/ML VIAL SC ×3 (05:37→21:11)
[2024-03-31 05:47] LABS: Basophils % (Auto) 0 % (0-2.5); Eosinophils # (Auto) 0.3 Thou/mm3 (0.0-0.5); Eosinophils % (Auto) 2 % (0-10); Hematocrit 32.8 % (36.0-46.0); Hemoglobin 11.1 g/dL (12.0-16.0); Immature Granulocytes % (Auto) 1 % (0-0); Immature Granulocytes Auto 0.08 Thou/mm3 (0.00-0.00); Lymphocytes # (Auto) 0.4 Thou/mm3 (1.0-4.8); Lymphocytes % (Auto) 3 % (10-50); Mean Corpuscular HGB Conc 33.8 g/dl (31.0-37.0); Mean Corpuscular Hemoglobin 31.1 pg (25.0-35.0); Mean Corpuscular Volume 92 fL (80-100); Monocytes # (Auto) 0.3 Thou/mm3 (0.0-0.8); Monocytes % (Auto) 2 % (0-12); Neutrophils # (Auto) 14.1 Thou/mm3 (1.8-7.7); Neutrophils % (Auto) 93 % (37-80); Nucleated Red Blood Cell % 0 /100 WBC (0); Platelet Count 207 Thou/mm3 (140-440); RDW Standard Deviation 49.1 fL (36.4-46.3); Red Blood Count 3.57 Miln/mm3 (4.00-5.20); White Blood Count 15.2 Thou/mm3 (3.6-11.0)
[2024-03-31] MEDS: DEXTROSE 5%-0.45% NS 1,000 ML 100 ML IV (05:50)
[2024-03-31] MEDS: INSULIN LISPRO (AdmeLOG) 1 UNIT/0.01 ML UNIT SC (05:50)
[2024-03-31 06:10] LABS: Glucose Estimated Average 128 mg/dL (80-131); Hemoglobin A1C 6.1 % Hgb (4.8-6.0)
[2024-03-31 06:22] LABS: Alanine Aminotransferase 29 U/L (10-49); Albumin, Serum 3.2 gm/dL (3.4-4.8); Albumin/Globulin Ratio 1.1 (1.2-2.2); Alkaline Phosphatase 150 U/L (46-116); Anion Gap 10 (7-16); Aspartate Amino Transferase 34 U/L (0-34); BUN/Creatinine Ratio 52 Ratio (12-20); Bilirubin,Total 0.5 mg/dL (0.3-1.2); Blood Urea Nitrogen 31 mg/dL (9-23); Calcium 8.4 mg/dL (8.3-10.6); Carbon Dioxide 22.3 mMol/L (20.0-31.0); Chloride 109 mMol/L (98-107); Creatinine (Component) 0.6 mg/dL (0.6-1.3); Estimated Creatinine Clearance 47.9 mL/min (>60); Globulin 2.9 gm/dL (2.3-3.5); Glucose 220 mg/dL (74-106); Magnesium 2.1 mg/dL (1.6-2.6); Osmolality,Calculated 294 (275-295); Phosphorous 2.2 mg/dL (2.4-5.1); Potassium 4.2 mMol/L (3.4-5.1); Sodium 141 mMol/L (136-145); Total Protein 6.1 gm/dL (5.7-8.2); eGFR > 60 See Note
[2024-03-31 07:35] LABS: Troponin I 0.782 ng/mL (0.0-0.045)
--- NOTE | 2024-03-31 09:06 | PC.SS ---
Update: Neurology recommendation is pending. Patient receiving IV antibiotics.
[2024-03-31] MEDS: LEVOTHYROXINE INJ 100 mCg VIAL 50 MCG IV (09:32)
[2024-03-31] MEDS: FOLIC ACID INJ 1 MG/0.2 ML IVP (09:32)
[2024-03-31] MEDS: THIAMINE INJ 100 MG/ML VIAL 2 ML IVP (09:32)
[2024-03-31] MEDS: PANTOPRAZOLE INJ 40 MG VIAL IVP (09:32)
[2024-03-31] MEDS: cefTRIAXone/D5w 1gm IV premix 50 ML IV ×2 (09:32→21:10)
[2024-03-31] MEDS: ZINC SULFATE 220 MG CAPSULE PO (09:33)
[2024-03-31] MEDS: AZITHROMYCIN 250 MG TABLET 500 MG PO (09:33)
[2024-03-31] MEDS: NAPH,KPH MBDB 1 PACKET (1.5 GM) PO (09:33)
--- NOTE | 2024-03-31 10:05 | PCS.ST ---
Swallow Evaluation completed. See report for details. Non-functional PO skills. Consider PEG placement. Recommend mildly thick blenderized diet/syringe feeds for now.
--- NOTE | 2024-03-31 10:19 | PC.SS ---
CLIP RIVETER conducted bedside contact with the patient conduct initial assessment and to discuss discharge planning. Patient is non-verbal. Present with patient at bedside was daughter, Tamia Rudd . Information obtained from patient?s daughter. Patient resides with daughter, Tamia Rudd. Patient is currently bedbound. Prior to admission patient did not utilize home oxygen, currently on 3L nasal cannula. Patient requires assistance with completion of ADL?s. Family assists patient with ADL completion. Patient?s family has initiated [facility] referral. Patient?s medical surrogate decision maker is daughter, Tamia Rudd. Patient?s PCP is SEJAL Preston. Patient does not possess any specialty providers. Patient does not participate with dialysis. Patient does possess a history of diabetes. Patient utilizes [facility] [place]; for medication services. Family requesting following forms of DME: hospital bed, wheelchair. If oxygen required referral will be submitted on behalf of the patient. If home health recommended, patient?s daughter receptive to service. No preferred home health agency identified. Family will provide transportation on behalf of the patient. No further intervention required at this time, rn social services will be available to address any further concerns. Next of Kin: Tamia Mejíaiz D/C Plan: Home
--- NOTE | 2024-03-31 10:21 | ECHO_ITS ---
Transthoracic Echo Report Ht (in): 58 Wt (lb): 86 Exam Location: Portable Status: Inpatient Plow Shaker: Niurka Bacon Indications: Procedure Performed: BP: 95 / 72 HR: 96 Technical Quality: Fair Contrast: Agitated Saline Total Dose (mL): MEASUREMENTS (Male / Female) Normal Values 2D ECHO LVOT Diameter 1.6 cm LA Volume Index 32.5 cm?/m? 16 - 28 cm?/m? Ascending Aorta Diameter 2.6 cm M-MODE Aortic Root Diameter MM 2.4 cm LA Systolic Diameter MM 3.1 cm LA Ao Ratio MM 1.3 AV Cusp Separation MM 2.0 cm DOPPLER AV Peak Velocity 92.6 cm/s AV Peak Gradient 3.4 mmHg AV Mean Gradient 2.0 mmHg AV Velocity Time Integral 15.0 cm AI Peak Velocity 257.0 cm/s AI Peak Gradient 26.4 mmHg AI Pressure Half Time 328.0 ms LVOT Peak Velocity 77.6 cm/s LVOT Peak Gradient 2.4 mmHg LVOT Velocity Time Integral 14.8 cm LVOT Cardiac Index 2268.1 cm?/min?m? AV Area Cont Eq vti 2.0 cm? AV Area Cont Eq pk 1.7 cm? MV Peak Velocity 113.0 cm/s MV Peak Gradient 5.1 mmHg MV Mean Velocity 64.1 cm/s MV Mean Gradient 2.0 mmHg MV Area PHT 4.4 cm? MR Peak Velocity 283.0 cm/s MR Peak Gradient 32.0 mmHg Mitral E Point Velocity 67.9 cm/s Mitral A Point Velocity 110.0 cm/s Mitral E to A Ratio 0.6 LV E' Lateral Velocity 4.2 cm/s Mitral E to LV E' Lateral Ratio 16.0 LV E' Septal Velocity 4.7 cm/s Mitral E to LV E' Septal Ratio 14.5 TR Peak Velocity 225.0 cm/s TR Peak Gradient 20.3 mmHg FINDINGS Left Ventricle Normal left ventricular size, wall thickness. Mild systolic dysfunction. The ejection fraction is v isually estimated at 40-45%. Right Ventricle The right ventricle is normal in size and systolic function. The estimated right ventricular systoli c pressure, 27mmHg. RAP 5. Left Atrium The left atrium is normal by two-dimensional, color flow and Doppler imaging with no structural abnormalities, no thrombus formation present. Right Atrium The right atrium is normal by two-dimensional imaging, color flow and Doppler imaging with no struct ural abnormalities, no thrombus formation present. Atrial Septum The interatrial septum appears normal with no evidence of a shunt. Aorta The aorta is normal by two-dimensional, color flow and Doppler interrogation. Mitral Valve The mitral valve is moderate MAC. There is mild mitral valve regurgitation. Aortic Valve The aortic valve is trileaflet. Mild sclerosis without stenosis. There is mild aortic valve regurgi tation. Tricuspid Valve The tricuspid valve is normal by two-dimensional, color flow and Doppler interrogation. There is mil d tricuspid valve regurgitation. Pulmonic Valve The pulmonic valve is normal by two-dimensional, color flow and Doppler interrogation. There is no significant pulmonic valve regurgitation. Vessels The pulmonary artery appears normal. The inferior vena cava pulmonary and hepatic veins appear gaurav l. Pericardium The pericardium is normal by two-dimensional imaging. There is no significant pericardial effusion. CONCLUSIONS Indication: Stroke Negative bubble study. TTE is suboptimal to rule out PFO or ASD. Consider GLORIA if high clincial suspi cion. Normal LV size. Moderate to severe LV systolic dysfunction with an EF of around 35 to 40%. Severe hypokinesis of the mid to apical septum, apical anterior and apical anterolateral segments an d akinetic apex indicating possible LAD involvement versus Takotsubo syndrome. Difficult to comment o n apical thrombus due to lack of definity. Normal RV size and function. Mild TR Moderate MAC. Mild MR Mild AV sclerosis without stenosis with mild AI. Rao Dodson (Electronically Signed) Final Date: 01 April 2024 06:07
--- NOTE | 2024-03-31 10:23 | PC.SS ---
Wheel Chairs Patients diagnosis creates mobility limitations that significantly impairs ability to participate in the patients activities of daily living either in their entirety, or in a reasonable time frame in the home and the patients mobility limitations can not be sufficiently resolved with an appropriately fitted cane or walker. Also the use of a manual wheelchair will sufficiently improve patient?s ability to participate in the activities of daily living in the home and the patient is willing to use the wheelchair that is provided in the home. The patient has some one in the home that is available, willing and able to provide assistance with the wheelchair. Hospital Bed Patient?s diagnosis requires positioning of the head or upper body to be elevated more than 30 degrees. Also the diagnosis requires positioning in order to alleviate pain and if the patient requires frequent changes in the body positioning and/or has an immediate need for change in the body position. Pillows and wedges have been considered and ruled out.
--- NOTE | 2024-03-31 10:23 | PD.RESPRO ---
Documentation for date of: 03/31/24 Subjective Subjective Interval history: Patient seen today at the bedside found awake, moaning, no acute distress. No overnight events reported. Daughter at bedside states patient is at baseline, had bowel movement last night after enema administration. Vital signs significant for some soft blood pressure, rest of vitals otherwise stable. Labs unremarkable at this time. CT abdomen pelvis showed some pneumonia and some rectal wall thickening. Antibiotic therapy was started namely ceftriaxone, azithromycin and flagyl. GI was consulted plans to do colonoscopy. Patient unable to tolerate PO intake too well, NGT was placed and golytely ordered through G tube. As patient nutrional status is not meeting metabolic demand, GI also consulted for PEG tube placement. Still pending MRI brain and Echo as part of stroke protocol. Exam Vital Signs Temp Pulse Resp BP Pulse Ox O2 Del Method O2 Flow Rate 97.1 F 79 19 96/81 99 Nasal Cannula 3 03/31/24 08:00 03/31/24 08:00 03/31/24 08:00 03/31/24 08:00 03/31/24 08:00 03/31/24 08:00 03/31/24 08:00 Narrative Exam Physical Exam GENERAL: NAD, frail, cachectic, temporal wasting HEENT: dry mucosa. Eyes open, symmetrical, & clear CARDIO: No chest pain on palpation. Heart RRR, no obvious murmurs PULM: No noted coughing/dyspnea. Lungs CTA B/L, no R/W/R GI: Abdomen soft, nondistended, no pain on palpation. BSx4 URO/ACCOUNTING REPRESENTATIVE:: No further abnormalities noted. Musa catheter SKIN/MSK/EXT: pressure ulcer on sacrum and buttocks, no pain on palpation. Pedal pulses present B/L NEURO: unable to assess Objective Labs 04/02/24 04:40 04/02/24 04:40 Labs: Laboratory Results - last 24 hr 03/30/24 03/30/24 03/30/24 13:55 14:05 15:58 WBC 15.1 H RBC 3.03 L Hgb 9.5 L Hct 27.9 L MCV 92 MCH 31.4 MCHC 34.1 RDW Std Deviation 49.5 H Plt Count 176 Neut % (Auto) 93 H Lymph % (Auto) 5 L [place] % (Auto) 2 Eos % (Auto) 0 Baso % (Auto) 0 Neut # (Auto) 14.0 H Lymph # (Auto) 0.7 L [place] # (Auto) 0.3 Eos # (Auto) 0.0 Baso # (Auto) 0.0 Immature Gran # (Auto) 0.06 H Absolute Nucleated RBC 0.00 Immature Gran % 0 Nucleated RBC % 0 ESR 78 H Puncture Site Right Radial ABG pH 7.48 H ABG pCO2 34 ABG pO2 300 H ABG HCO3 25 ABG O2 Saturation 100 H ABG Base Excess 2 Oxygen Liter Flow 13 Sodium 144 Potassium 3.4 Chloride 110 H Carbon Dioxide 23.6 Anion Gap 10 BUN 43 H Creatinine 0.6 Estim Creat Clear Calc 47.0 L eGFR > 60 BUN/Creatinine Ratio 72 H Glucose [address] Glu mg/dL Hemoglobin A1c Calculated Osmolality 300 H Lactic Acid 1.8 Calcium 8.7 Corrected Calcium 9.3 Phosphorus Magnesium 1.4 L Total Bilirubin 0.4 AST 31 ALT 27 Alkaline Phosphatase 141 H Ammonia 16 Total Creatine Kinase 82 Troponin I 0.109 H* C-Reactive Prot, Quant 15.4 H B-Natriuretic Peptide 69 Total Protein 6.0 Albumin 3.2 L Globulin 2.8 Albumin/Globulin Ratio 1.1 L Amylase 45 Lipase 34 Vitamin B12 Procalcitonin 1.35 H TSH 17.57 H Free T4 Ur Collection Type Clean Catch Urine Color Yellow Urine Clarity Clear Urine pH 6.0 Ur Specific [place] 1.028 Urine Protein 1+ A Urine Glucose (UA) Trace Urine Ketones Negative Urine Blood Negative Urine Nitrite Negative Urine Bilirubin Negative Urine Urobilinogen (Auto) 2.0 Ur Leukocyte Esterase Negative Urine RBC 1 Urine WBC 1 Ur Squamous Epith Cells < 1 Urine Bacteria None Salicylates < 3.0 Urine Opiates Screen Negative Urine Fentanyl Screen Negative Acetaminophen < 2.0 L Ur Barbiturates Screen Negative U Amphetamin/Meth Scrn Negative U Benzodiazepines Scrn Negative U Cocaine Metab Screen Negative U Marijuana (THC) Screen Negative Ethyl Alcohol < 3.0 RSV Rapid 03/30/24 03/30/24 03/31/24 17:41 18:19 00:44 WBC RBC Hgb Hct MCV MCH MCHC RDW Std Deviation Plt Count Neut % (Auto) Lymph % (Auto) [place] % (Auto) Eos % (Auto) Baso % (Auto) Neut # (Auto) Lymph # (Auto) [place] # (Auto) Eos # (Auto) Baso # (Auto) Immature Gran # (Auto) Absolute Nucleated RBC Immature Gran % Nucleated RBC % ESR Puncture Site ABG pH ABG pCO2 ABG pO2 ABG HCO3 ABG O2 Saturation ABG Base Excess Oxygen Liter Flow Sodium Potassium Chloride Carbon Dioxide Anion Gap BUN Creatinine Estim Creat Clear Calc eGFR BUN/Creatinine Ratio Glucose Estimated Ave Glu mg/dL Hemoglobin A1c Calculated Osmolality Lactic Acid Calcium Corrected Calcium Phosphorus Magnesium Total Bilirubin AST ALT Alkaline Phosphatase Ammonia Total Creatine Kinase Troponin I 0.154 H* 1.033 H* D C-Reactive Prot, Quant B-Natriuretic Peptide Total Protein Albumin Globulin Albumin/Globulin Ratio Amylase Lipase Vitamin B12 > 2000 H Procalcitonin TSH Free T4 0.44 L Ur Collection Type Urine Color Urine Clarity Urine pH Ur Specific [place] Urine Protein Urine Glucose (UA) Urine Ketones Urine Blood Urine Nitrite Urine Bilirubin Urine Urobilinogen (Auto) Ur Leukocyte Esterase Urine RBC Urine WBC Ur Squamous Epith Cells Urine Bacteria Salicylates Urine Opiates Screen Urine Fentanyl Screen Acetaminophen Ur Barbiturates Screen U Amphetamin/Meth Scrn U Benzodiazepines Scrn U Cocaine Metab Screen U Marijuana (THC) Screen Ethyl Alcohol RSV Rapid Negative 03/31/24 04:51 WBC 15.2 H RBC 3.57 L Hgb 11.1 L Hct 32.8 L MCV 92 MCH 31.1 MCHC 33.8 RDW Std Deviation 49.1 H Plt Count 207 D Neut % (Auto) 93 H Lymph % (Auto) 3 L [place] % (Auto) 2 Eos % (Auto) 2 Baso % (Auto) 0 Neut # (Auto) 14.1 H Lymph # (Auto) 0.4 L [place] # (Auto) 0.3 Eos # (Auto) 0.3 Baso # (Auto) 0.0 Immature Gran # (Auto) 0.08 H Absolute Nucleated RBC 0.00 Immature Gran % 1 H Nucleated RBC % 0 ESR Puncture Site ABG pH ABG pCO2 ABG pO2 ABG HCO3 ABG O2 Saturation ABG Base Excess Oxygen Liter Flow Sodium 141 Potassium 4.2 D Chloride 109 H Carbon Dioxide 22.3 Anion Gap 10 BUN 31 H Creatinine 0.6 Estim Creat Clear Calc 47.9 L eGFR > 60 BUN/Creatinine Ratio 52 H Glucose [address] Glu mg/dL 128 Hemoglobin A1c 6.1 H Calculated Osmolality 294 Lactic Acid Calcium 8.4 Corrected Calcium 9.0 Phosphorus 2.2 L Magnesium 2.1 Total Bilirubin 0.5 AST 34 ALT 29 Alkaline Phosphatase 150 H Ammonia Total Creatine Kinase Troponin I 0.782 H* D C-Reactive Prot, Quant B-Natriuretic Peptide Total Protein 6.1 Albumin 3.2 L Globulin 2.9 Albumin/Globulin Ratio 1.1 L Amylase Lipase Vitamin B12 Procalcitonin TSH Free T4 Ur Collection Type Urine Color Urine Clarity Urine pH Ur Specific [place] Urine Protein Urine Glucose (UA) Urine Ketones Urine Blood Urine Nitrite Urine Bilirubin Urine Urobilinogen (Auto) Ur Leukocyte Esterase Urine RBC Urine WBC Ur Squamous Epith Cells Urine Bacteria Salicylates Urine Opiates Screen Urine Fentanyl Screen Acetaminophen Ur Barbiturates Screen U Amphetamin/Meth Scrn U Benzodiazepines Scrn U Cocaine Metab Screen U Marijuana (THC) Screen Ethyl Alcohol RSV Rapid ABG Interpretation ABG results: 03/30/24 13:55 ABG pH 7.48 H ABG pCO2 34 ABG pO2 300 H ABG HCO3 25 ABG O2 Saturation 100 H ABG Base Excess 2 Quality Measures Quality Measures stroke Suspected type of Stroke: Unknown at this time Tenecteplase given: Reason(s) Tenecteplase not given: Outside the time window not given Rehab services: PT evaluation ordered VTE Prophylaxis: pharmaceutical Antithrombotic by day 2:: not indicated (describe) Statin ordered: >75 y/o moderate or high intensity dose Anticoagulation ordered for A-fib or flutter (current or hx): not indicated Advance care planning discussed with:: patient Assessment & Plan Assessment Current Active Medications: Generic Name Dose Route Start Last Admin Trade Name Freq PRN Reason Stop Dose Admin Acetaminophen 650 mg 03/30/24 16:17 Acetaminophen 325 Mg Tablet PO 04/29/24 16:16 Q6H PRN Fever >101.5 Acetaminophen 650 mg 03/30/24 16:17 Acetaminophen 325 Mg Tablet PO 04/29/24 16:16 Q6H PRN PAIN SCALE 1-3 (mild Aspirin 300 mg 03/31/24 09:00 Aspirin 300 Mg Supp SC 04/30/24 08:59 QDAY ROGER Azithromycin 500 mg 03/31/24 09:00 03/31/24 09:33 Azithromycin 250 Mg Tablet PO 04/07/24 08:59 500 mg QDAY ROGER Administration Bisacodyl 10 mg 03/30/24 19:00 03/30/24 19:42 Bisacodyl 10 Mg Supp SC 04/29/24 18:59 10 mg QDAY ROGER Administration Protocol Dextrose 25 ml 03/30/24 16:22 Dextrose 50%-Water Inj 50 Ml Syringe IV 04/29/24 16:21 Q15MIN PRN BG 50-70 responsive npo pt Dextrose 50 ml 03/30/24 16:22 Dextrose 50%-Water Inj 50 Ml Syringe IV 04/29/24 16:21 Q15MIN PRN BG <50 OR BG <70 & pt unresponsive Folic Acid 1 mg 03/30/24 16:45 03/31/24 09:32 Folic Acid Inj 1 Mg/0.2 Ml IVP 04/29/24 16:44 1 mg QDAY ROGER Administration Glucagon 1 mg 03/30/24 16:22 Glucagon Inj 1 Mg Vial IM Q15MIN PRN BG <70, and no IV access Heparin Sodium (Porcine) 5,000 unit 03/30/24 18:00 03/31/24 05:37 Heparin Sod Inj 5000 Unit/Ml Vial SC 04/13/24 17:59 5,000 unit Q8HR ROGER Administration Dextrose/Sodium Chloride 1,000 mls @ 100 mls/hr 03/30/24 16:48 03/31/24 05:50 D5-1/2ns IV 04/29/24 16:47 100 mls/hr BID ROGER Administration Ceftriaxone Sodium/Dextrose 50 mls @ 100 mls/hr 03/31/24 08:57 03/31/24 09:32 Rocephin/D5w 1gm Iv Premix IV 04/07/24 08:56 100 mls/hr QDAY ROGER Administration Insulin Human Lispro 0 unit 03/30/24 17:00 03/31/24 05:50 Insulin Lispro (Admelog) 1 Unit/0.01 Ml Unit SC 04/29/24 16:59 2 unit Q6HR ROGER Administration Protocol Levothyroxine Sodium 50 mcg 03/30/24 17:30 03/31/24 09:32 Levothyroxine Inj 100 Mcg Vial IV 04/29/24 17:29 50 mcg QDAY ROGER Administration Ondansetron HCl 4 mg 03/30/24 16:17 Ondansetron Inj 2 Mg/Ml Inj 2 Ml IV 04/29/24 16:16 Q6H PRN NAUSEA OR VOMITING Protocol Pantoprazole Sodium 40 mg 03/30/24 16:30 03/31/24 09:32 Pantoprazole Inj 40 Mg Vial IVP 04/29/24 16:29 40 mg QDAY ROGER Administration Thiamine HCl 100 mg 03/30/24 16:45 03/31/24 09:32 Thiamine Inj 100 Mg/Ml Vial 2 Ml IVP 04/29/24 16:44 100 mg QDAY ROGER Administration Zinc Sulfate 220 mg 03/30/24 16:45 03/31/24 09:33 Zinc Sulfate 220 Mg Capsule PO 04/04/24 16:44 220 mg QDAY ROGER Administration Plan 79 y/o F with PMHx of CVA 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 Per daughter patient was able to do activities of daily living 2 months ago, including walking with a walker, eating by herself, but has progressively declined until 1 week ago were she acutely declined and developed urinary incontinence. Patient admitted for acute metabolic encephalopathy secondary to hypoglycemia. #Sepsis secondary to Pneumonia vs proctitis Patient with hypothermia, elevated CRP, procalcitonin and WBCs, with altered mental status UA is negative, CXR shows pneumonia, likely aspiration as patient on arrival had GCS of 3 CT abdomen pelvis was done which showed significant pneumonia as well as rectal wall thickening possibly proctitis, as well as distended bladder daughter states patient has been having urinary incontinence and trouble urinating, musa catheter in place - on LR @ 80ml/hr - on Ceftriaxone 1g IV q 12hr - on Azithromycin 500 IV q day - on Flagyl 500 IV q6hr - Urine Cx pending - blood cultures pending #Acute metabolic encephalopathy-improved #Hypoglycemia- improved #Hypothermia- improved #B12 toxicity #CVA- low suspicion DDx: Hypoglycemia secondary to sulfonylurea, Sepsis, B12 toxicity, new CVA(low suspicion), likely secondary to hypoglycemia in the setting of sulfonylurea use hypothermia also likely due to hypoglycemia Per daughter patient is able to do ADLs until 2months ago where she has progressively declined and then 1 week ago she acutely declined Patient saw her PCP about 2 months ago, was not given new medications but frequency changes were made to diabetes regimen On admission was found with hypoglycemia (13) and GSC 3, improved after D10 administration to 96, and is closer to baseline Stroke protocol was activated, Head CT showed Negative for acute hemorrhage, mass effect or midline shift Head/Neck CTA: 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 Patient found Vitamin B12 >2000 - on LR @ 80ml/hr - Aspirin per rectum - MRI brain pending - Echo with bubble study pending - Physical therapy eval pending - BS checks q 6 hours - Neuro checks q4 hours - Neurology consulted, appreciate recommendations - aspiration precautions - HOB>30 #Cachexia #Failure to thrive Patient has been having low PO intake for past few weeks, per daughter patient has been hiding food under the couch BMI is 17.8, patient nutritional needs not being met, will likely require PEG tube placement to meet nutritional demand, GI already consulted. - phos checks daily - folic and thiamine IV - pending PEG tube placement - monitor for refeeding syndrome #Possible Proctitis CT abdomen pelvis was done and showed rectal wall thickening concerning for proctitis GI, Dr. Hinojosa was consulted and will do Colonoscopy patient not having good PO intake - NGT placed - on Golytely prep - Colonoscopy pending #Troponinemia Patient on arrival had elevated troponins which peaked at 1.05 and are now downtrending EKG showed no significant ST changes likely in the setting of septic process - monitor for any cardiac symptoms - f/u Echo #Hypothyroidism patient has had low po intake past few weeks- months TSH found elevated, Free T4 low - IV levothyroxine #Hypomagnesemia- resolved #Hypophosphatemia - replete as needed #Elevated Alkaline phosphatase already downtrending - monitor for now #Diabetes - insulin sliding scale - q6 BS check - hypoglycemia protocol in place Case discussed with my senior Dr. Calvo PGY-[address] Nigel Head MD PGY-1 Disposition: Tele Fluids: LR Feeding: Pureed food Thrombo prophylaxis: Heparin Gastric Ulcer prophylaxis: Pantoprazole 40 mg IV daily CODE STATUS: Full code Senior resident attestation: Patient evaluated and examined at the bedside, plan of care discussed with rest of the team including my attending physician, except as noted. #Acute encephalopathy: possibly metabolic due to hypoglycemia in the setting of sulfonylurea use and poor PO intake. #Stroke r/o: MRI pending , neuro recs appreceiated. #failure to thrive: GI consult for PEG tube placement #Proctitis: Stool throughout the colon noted, enema given, bowel movement positive, pending colonoscopy and GoLytely prep via NG tube. #NSTEMI type I versus type II: Noted troponin elevation peaked at 1.033, echocardiogram as part of stroke workup showed segmental wall motion abnormality in the apical segment EF 30 to 35%, possible LAD occlusion versus Takotsubo. Will get cardiology consult, appreciate recommendations. #GPC bacteremia: Blood culture positive for GPC's only anaerobic bottle in 1/2 samples, likely contaminant. Patient is afebrile, at the moment, will repeat blood cultures, MRSA nasal screen negative, #Pneumonia: Likely aspiration pneumonia, continue IV antibiotics, ceftriaxone, azithromycin and metronidazole to cover for atypical pathogens as well as aspiration pneumonia. 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 Per daughter, patient was able to do activities of daily living 2 months ago including walking with her walker and feeding herself however in the past couple weeks she has been having altered mentation and then bedbound. In the ER, patient was noted to have a GCS of 3 with blood sugars of 13 subsequently received dextrose and subsequently mentation slightly improved and admitted for acute metabolic encephalopathy secondary to hypoglycemia and stroke workup. I reviewed above note and agree with findings and plans. I have also personally examined the patient with medicine team and went over assessment and plan with medical team including college intern and resident physician.
--- NOTE | 2024-03-31 10:27 | XR_ITS ---
Examination: AP chest single view Technique one AP portable upright chest single view Exam date and time: March 31, 2024 1122 hours INDICATIONS: Post orogastric tube placement FINDINGS: Orogastric tube projects in the stomach satisfactory position Colonic ileus IMPRESSION: Orogastric tube projects in satisfactory position in the stomach
[2024-03-31] MEDS: NA SU/NAHCO3/KC/PEG (Golytely) 4,000 ML BTL 4000 ML PO (12:23)
[2024-03-31] MEDS: metroNIDAZOLE/NS 500 MG IVPB 500 MG/100 ML BAG 200 MG IV ×2 (12:24→17:38)
[2024-03-31] MEDS: RINGERS LACTATED 1000 ML 1,000 ML 80 ML IV (13:09)
[2024-03-31 14:44] LABS: Cocci Serology, IgM Negative (Negative)
--- NOTE | 2024-03-31 16:22 | PC.DIETICIAN ---
Patient is at significant risk for refeeding syndrome. Recommendations below after PEG-tube placement: 1. Glucerna 1.2 at 10 ml/hr x 24 hrs (do not advance). If no IV fluids, water flushes 35 ml/hr (or per MD). 2. Thiamine 100mg/day for 7 days; provide first dose at least 30 minutes before starting nutrition. 3. Multivitamins/Minerals. 4. Daily labs for P, K, and Mg; replace as needed. If no electrolytes disturbances after 24 hrs, advance 10 ml every 12 hrs to goal rate of 45 ml/hr x 24 hrs. Continue with water flushes 35 ml/hr (or per MD).
--- NOTE | 2024-03-31 17:18 | PC.NURSE ---
call to pharmacy for aspirin suppository
--- NOTE | 2024-03-31 17:44 | PD.RESCONSUL ---
HPI Data of Consult Requesting Physician: Tony Manning MD Admitting Provider: Tony Manning MD Attending Provider: Tony Manning MD Primary Care Provider: Physician No Primary/Family Consult Narrative History of present illness: 79 yo female with PMH of 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 Per daughter patient has been nonverbal since last stroke, however she was able to walk with a walker and eat by herself until aproximately 2 months ago where she started progressively declining, decreasing oral intake, less active. The day of admission around 3am patient was found by daughter unresponsive and called EMS. On arrival patient was found with GCS of 3 glucose measured was 13, she was given D10 and repeat BS was 96. ED course: On arrival Vitals significant for hypothermia 93.8, rest of vitals nl, Labs significant for hypoglycemia of 13 which after D10 was repeated and increased to 96. CXR showed some pneumonia. UA was negative. EKG is sinus rhythm, Head CT was negative for Negative for acute hemorrhage, mass effect or midline shift, Head/Neck CTA showed 90% plus stenosis right carotid bifurcation proximal right internal carotid artery, No cerebral large vessel arterial occlusions. Neurology was consulted due to encephalopathy. Currently patient's mentation is back to baseline, per daughter. cc:: cc: Tony Manning MD Review of Systems Review of Systems ROS Unobtainable: unobtainable due to mental status Exam Vital Signs Temp Pulse Resp BP Pulse Ox O2 Del Method O2 Flow Rate 97.3 F 74 21 H 112/55 L 94 L Nasal Cannula 3 03/31/24 16:00 03/31/24 16:53 03/31/24 16:00 03/31/24 16:00 03/31/24 16:00 03/31/24 16:00 03/31/24 16:00 Narrative Exam GENERAL: Cachectic, awake, NG tube in place HEENT: Normocephalic, atraumatic and nontender.? Pupils are equal and reactive to light and accommodation.? Oral mucosa dry NECK: Supple without adenopathy. Trachea midline. Nontender, carotid pulse 2+ bilaterally without bruits, no JVD.? CHEST: Heart rate and rythm normal, no murmurs, gallops auscultated. S1 & 2 normal insensity. Nontender on palpation, no deformity and no crepitus. LUNGS: Lung sounds are clear.? No wheezing, rales or ronchi.? No intercostal subcostal retraction. Room air ABDOMEN: Soft,symmetric , nontender, no guarding or rebound tenderness. No abnormal masses palpated.? No pulsatile masses or bruits.? Bowel sounds are normoactive in all 4 quadrants. EXTREMITIES: Nontender.? No pitting edema.? No cyanosis.? Right upper extremity contracted. SKIN: No rashes noted. NEURO:?Right upper extremity contracted Results Labs 04/01/24 04:15 04/01/24 04:15 Labs: Short CBC 03/31/24 Range/Units 04:51 WBC 15.2 H (3.6-11.0) Thou/mm3 Hgb 11.1 L (12.0-16.0) g/dL Hct 32.8 L (36.0-46.0) % Plt Count 207 D (140-440) Thou/mm3 BMP 03/31/24 04:51 Sodium 141 Potassium 4.2 D Chloride 109 H Carbon Dioxide 22.3 BUN 31 H Creatinine 0.6 Glucose 220 H D Calcium 8.4 Cardiac Enzymes 03/30/24 03/31/24 03/31/24 Range/Units 18:19 00:44 04:51 Troponin I 0.154 H* 1.033 H* D 0.782 H* D (0.0-0.045) ng/mL Liver Function 03/31/24 Range/Units 04:51 Total Bilirubin 0.5 (0.3-1.2) mg/dL AST 34 (0-34) U/L ALT 29 (10-49) U/L Alkaline Phosphatase 150 H (46-116) U/L Albumin 3.2 L (3.4-4.8) gm/dL ABG Interpretation ABG results: 03/30/24 13:55 ABG pH 7.48 H ABG pCO2 34 ABG pO2 300 H ABG HCO3 25 ABG O2 Saturation 100 H ABG Base Excess 2 Quality Measures Quality Measures stroke Suspected type of Stroke: Unknown at this time Tenecteplase given: Reason(s) Tenecteplase not given: Outside the time window not given Rehab services: Speech Language Pathology eval ordered VTE Prophylaxis: mechanical Antithrombotic by day 2:: not indicated (describe) Statin ordered: >75 y/o moderate or high intensity dose Anticoagulation ordered for A-fib or flutter (current or hx): not indicated Advance care planning discussed with:: child Medications Home Medications and Allergies Home Medications ?Medication ?Instructions ?Recorded ?Confirmed ?Type ascorbic acid (vitamin C) 1,000 mg 1,000 mg PO DAILY 03/31/24 03/31/24 History tablet atorvastatin 40 mg tablet 40 mg PO HS 03/31/24 03/31/24 History cholecalciferol (vitamin D3) 25 25 mcg PO DAILY 03/31/24 03/31/24 History mcg (1,000 unit) capsule cyanocobalamin (vitamin B-12) 3,000 mcg PO DAILY 03/31/24 03/31/24 History 1,000 mcg tablet glyburide 5 mg tablet 5 mg PO DAILY 03/31/24 03/31/24 History levothyroxine 50 mcg tablet 50 mcg PO HANNAH 03/31/24 03/31/24 History metformin 625 mg tablet 625 mg PO TID 03/31/24 03/31/24 History Allergies Allergy/AdvReac Type Severity Reaction Status Date / Time No Known Allergies Allergy Verified 03/30/24 14:19 Visit Medications Acetaminophen (Acetaminophen 325 Mg Tablet) 650 mg PO Q6H PRN PRN Reason: Fever >101.5 Stop: 04/29/24 16:16 Acetaminophen (Acetaminophen 325 Mg Tablet) 650 mg PO Q6H PRN PRN Reason: PAIN SCALE 1-3 (mild Stop: 04/29/24 16:16 Aspirin (Aspirin 300 Mg Supp) 300 mg DE QDAY [facility] Stop: 04/30/24 08:59 Azithromycin (Azithromycin 250 Mg Tablet) 500 mg PO QDAY [facility] Stop: 04/07/24 08:59 Last Admin: 03/31/24 09:33 Dose: 500 mg Bisacodyl (Bisacodyl 10 Mg Supp) 10 mg DE QDAY [facility]; Protocol Stop: 04/29/24 18:59 Last Admin: 03/31/24 15:10 Dose: Not Given Dextrose (Dextrose 50%-Water Inj 50 Ml Syringe) 25 ml IV Q15MIN PRN PRN Reason: BG 50-70 responsive npo pt Stop: 04/29/24 16:21 Dextrose (Dextrose 50%-Water Inj 50 Ml Syringe) 50 ml IV Q15MIN PRN PRN Reason: BG <50 OR BG <70 & pt unresponsive Stop: 04/29/24 16:21 Folic Acid (Folic Acid Inj 1 Mg/0.2 Ml) 1 mg IVP QDAY [facility] Stop: 04/29/24 16:44 Last Admin: 03/31/24 09:32 Dose: 1 mg Glucagon (Glucagon Inj 1 Mg Vial) 1 mg IM Q15MIN PRN PRN Reason: BG <70, and no IV access Heparin Sodium (Porcine) (Heparin Sod Inj 5000 Unit/Ml Vial) 5,000 unit SC Q8HR [facility] Stop: 04/13/24 17:59 Last Admin: 03/31/24 15:19 Dose: 5,000 unit Metronidazole (Flagyl 500 Mg Iv) 500 mg in 100 mls @ 200 mls/hr IV Q6HR [facility] Stop: 04/07/24 10:18 Last Admin: 03/31/24 17:38 Dose: 200 mls/hr Ceftriaxone Sodium/Dextrose (Rocephin/D5w 1gm Iv Premix) 50 mls @ 100 mls/hr IV Q12HR [facility] Stop: 04/07/24 20:59 Lactated Ringer's (Lactated Ringers) 1,000 mls @ 80 mls/hr IV .[id number] [facility] Stop: 04/01/24 11:29 Last Admin: 03/31/24 13:09 Dose: 80 mls/hr Insulin Human Lispro (Insulin Lispro (Admelog) 1 Unit/0.01 Ml Unit) 0 unit SC Q6HR [facility]; Protocol Stop: 04/29/24 16:59 Last Admin: 03/31/24 17:35 Dose: Not Given Levothyroxine Sodium (Levothyroxine Inj 100 Mcg Vial) 50 mcg IV QDAY [facility] Stop: 04/29/24 17:29 Last Admin: 03/31/24 09:32 Dose: 50 mcg Ondansetron HCl (Ondansetron Inj 2 Mg/Ml Inj 2 Ml) 4 mg IV Q6H PRN; Protocol PRN Reason: NAUSEA OR VOMITING Stop: 04/29/24 16:16 Pantoprazole Sodium (Pantoprazole Inj 40 Mg Vial) 40 mg IVP QDAY [facility] Stop: 04/29/24 16:29 Last Admin: 03/31/24 09:32 Dose: 40 mg Thiamine HCl (Thiamine Inj 100 Mg/Ml Vial 2 Ml) 100 mg IVP QDAY [facility] Stop: 04/29/24 16:44 Last Admin: 03/31/24 09:32 Dose: 100 mg Zinc Sulfate (Zinc Sulfate 220 Mg Capsule) 220 mg PO QDAY [facility] Stop: 04/04/24 16:44 Last Admin: 03/31/24 09:33 Dose: 220 mg Discontinued Medications Aspirin (Aspirin Ec 81 Mg Tabec) 81 mg PO QDAY [facility] Stop: 04/29/24 16:44 Last Admin: 03/30/24 19:26 Dose: Not Given Aspirin (Aspirin 300 Mg Supp) 300 mg DE X1 ONE Stop: 03/30/24 17:37 Last Admin: 03/30/24 19:42 Dose: 300 mg Hydrocortisone Sodium Succinate (Hydrocortisone Sod Succ Inj 100 Mg Vial) 50 mg IV X1 ONE Stop: 03/30/24 17:24 Last Admin: 03/30/24 19:26 Dose: Not Given Hydrocortisone Sodium Succinate (Hydrocortisone Sod Succ Inj 100 Mg Vial) 50 mg IV X1 ONE Stop: 03/30/24 17:24 Last Admin: 03/30/24 20:57 Dose: 50 mg Ceftriaxone Sodium/Dextrose (Rocephin/D5w 1gm Iv Premix) 50 mls @ 100 mls/hr IV X1 ONE Stop: 03/30/24 14:17 Last Infusion: 03/30/24 16:10 Dose: Infused Sodium Chloride (Ns) 1,000 mls @ 999 mls/hr IV .Q1H1M ONE Stop: 03/30/24 14:48 Last Infusion: 03/30/24 17:23 Dose: Infused Azithromycin 500 mg/ Sodium (Chloride) 250 mls @ 250 mls/hr IV X1 ONE Stop: 03/30/24 15:42 Last Infusion: 03/30/24 19:27 Dose: Infused Magnesium Sulfate (Magnesium Sulfate Ivpb) 2 gm in 50 mls @ 25 mls/hr IV X1 ONE Stop: 03/30/24 17:42 Last Infusion: 03/30/24 19:26 Dose: Infused Sodium Chloride (Ns) 250 mls @ 999 mls/hr IV .Q16M ONE Stop: 03/30/24 16:32 Last Infusion: 03/30/24 17:24 Dose: Infused Magnesium Sulfate (Magnesium Sulfate Ivpb) 2 gm in 50 mls @ 25 mls/hr IV X1 ONE Stop: 03/30/24 18:29 Last Infusion: 03/30/24 22:00 Dose: Infused Potassium Chloride (Kcl Ivpb) 10 meq in 100 mls @ 100 mls/hr IV Q1H [facility] Stop: 03/30/24 20:29 Last Admin: 03/30/24 23:30 Dose: 100 mls/hr Sodium Chloride (Ns) 1,000 mls @ 80 mls/hr IV .[id number] [facility] Stop: 04/29/24 16:41 Last Admin: 03/30/24 19:26 Dose: Not Given Dextrose/Sodium Chloride (D5-1/2ns) 1,000 mls @ 100 mls/hr IV BID [facility] Stop: 04/29/24 16:47 Last Admin: 03/31/24 05:50 Dose: 100 mls/hr Ceftriaxone Sodium/Dextrose (Rocephin/D5w 1gm Iv Premix) 50 mls @ 100 mls/hr IV QDAY [facility] Stop: 04/07/24 08:56 Last Admin: 03/31/24 09:32 Dose: 100 mls/hr Ceftriaxone Sodium/Dextrose (Rocephin/D5w 1gm Iv Premix) 50 mls @ 100 mls/hr IV Q12HR [facility] Stop: 04/07/24 10:17 Azithromycin 500 mg/ Sodium (Chloride) 250 mls @ 250 mls/hr IV QDAY [facility] Stop: 04/07/24 10:18 Insulin Human Lispro (Insulin Lispro (Admelog) 1 Unit/0.01 Ml Unit) 0 unit SC [facility]; Protocol Stop: 04/29/24 16:59 Levothyroxine Sodium (Levothyroxine Inj 100 Mcg Vial) 50 mcg IV QDAY [facility] Stop: 04/29/24 17:29 Polyethylene Glycol/Electrolytes (Na Brown/Nahco3/Yves/Peg (Golytely) 4,000 Ml Btl) 4,000 ml PO X1 ONE Stop: 03/31/24 10:28 Last Admin: 03/31/24 12:23 Dose: 1 bottle Potassium Phos/Sodium Phos (Naph,[facility] Mbdb 1 Packet (1.5 Gm)) 1 packet PO X1 ONE Stop: 03/31/24 07:59 Last Admin: 03/31/24 09:33 Dose: 1 packet Assessment & Plan Plan 79 yo female with PMH of 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 Per daughter patient has been nonverbal since last stroke, however she was able to walk with a walker and eat by herself until aproximately 2 months ago where she started progressively declining, decreasing oral intake, less active. The day of admission around 3am patient was found by daughter unresponsive and called EMS. On arrival patient was found with GCS of 3 glucose measured was 13, she was given D10 and repeat BS was 96. ED course: On arrival Vitals significant for hypothermia 93.8, rest of vitals nl, Labs significant for hypoglycemia of 13 which after D10 was repeated and increased to 96. CXR showed some pneumonia. UA was negative. EKG is sinus rhythm, Head CT was negative for Negative for acute hemorrhage, mass effect or midline shift, Head/Neck CTA showed 90% plus stenosis right carotid bifurcation proximal right internal carotid artery, No cerebral large vessel arterial occlusions. Neurology was consulted due to encephalopathy. Currently patient's mentation is back to baseline, per daughter. #90%right stenosis internal carotid -Patient not candidate for endarterectomy -Recommend start dual antiplatelet after PEG tube placement -Continue atorvastatin #Acute metabolic encephalopathy, improving -Likely in the setting of hypoglycemia and sepsis -New stroke less likely -Follow up MRI -Follow up echocardiogram Patient's care discussed with attending physician, Dr Oumou Dupont MD PGY3 Attending Provider Attestation/Addendum I personally have seen and examined the patient at the bedside and I agree with the resident's findings, assessment and plan of care. As the patient has critical stenosis in right internal carotid artery, she would need a dual antiplatelet agent therapy along with statin for aggressive vascular risk factors reduction to prevent further TIA/CVA. However as the patient is scheduled for PEG tube placement for nutritional support, will hold off on antiplatelet agents for now.
--- NOTE | 2024-03-31 18:07 | PC.NURSE ---
pt is receiving golytely via Ng tube push
--- NOTE | 2024-03-31 19:57 | ESPR_ITS ---
Documentation for date of: 03/31/24 Subjective Subjective Interval history: Patient evaluated in the ER yesterday Exam Vital Signs Temp Pulse Resp BP Pulse Ox O2 Del Method O2 Flow Rate 97.3 F 74 21 H 112/55 L 94 L Nasal Cannula 3 03/31/24 16:00 03/31/24 16:53 03/31/24 16:00 03/31/24 16:00 03/31/24 16:00 03/31/24 16:00 03/31/24 16:00 Constitutional Comments: Chronically ill-appearing Routine Respiratory Exam Comments: Normal to auscultation Routine Abdominal Exam Comments: Positive bowel sounds Objective Labs 04/01/24 04:15 04/01/24 04:15 Labs: Laboratory Results - last 24 hr 03/30/24 03/31/24 03/31/24 20:06 00:44 04:51 WBC 15.2 H RBC 3.57 L Hgb 11.1 L Hct 32.8 L MCV 92 MCH 31.1 MCHC 33.8 RDW Std Deviation 49.1 H Plt Count 207 D Neut % (Auto) 93 H Lymph % (Auto) [address] [place] % (Auto) 2 Eos % (Auto) 2 Baso % (Auto) 0 Neut # (Auto) 14.1 H Lymph # (Auto) 0.[address] [place] # (Auto) 0.3 Eos # (Auto) 0.3 Baso # (Auto) 0.0 Immature Gran # (Auto) 0.08 H Absolute Nucleated RBC 0.00 Immature Gran % 1 H Nucleated RBC % 0 Sodium 141 Potassium 4.2 D Chloride 109 H Carbon Dioxide 22.3 Anion Gap 10 BUN 31 H Creatinine 0.6 Estim Creat Clear Calc 47.9 L eGFR > 60 BUN/Creatinine Ratio 52 H Glucose [address] Glu mg/dL 128 Hemoglobin A1c 6.1 H Calculated Osmolality 294 Calcium 8.4 Corrected Calcium 9.0 Phosphorus 2.2 L Magnesium 2.1 Total Bilirubin 0.5 AST 34 ALT 29 Alkaline Phosphatase 150 H Troponin I 1.033 H* D 0.782 H* D Total Protein 6.1 Albumin 3.2 L Globulin 2.9 Albumin/Globulin Ratio 1.1 L Vitamin B12 > 2000 H Coccidioides IgM Ab Negative Impressions Impression: # Stool impaction # Abnormal CT scan of the abdomen and pelvis showing thickening of the rectal wall ABG Interpretation ABG results: 03/30/24 13:55 ABG pH 7.48 H ABG pCO2 34 ABG pO2 300 H ABG HCO3 25 ABG O2 Saturation 100 H ABG Base Excess 2 Assessment & Plan A&P Narrative # Abnormal CT scan of the abdomen pelvis showing thickening of the rectal wall and stool impaction in increased stool burden Plan GoLytely to clean the stool burden out Consider colonoscopy once patient is clear Clear liquid diet Will follow the patient Other medical problems include # Metabolic encephalopathy # ALOC # Hypoglycemia # Hypothermia # History of CVA with right-sided motor weakness # 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
[2024-03-31] MEDS: ACETAMINOPHEN 325 MG TABLET 650 MG PO (21:10)
[2024-04-01] VITALS: BP 101/65; PULSE 80; PULSE 82; RESP 15; TEMP 36.1; O2SAT 95
--- NOTE | 2024-04-01 | XR_ITS ---
Examinations: MRI Brain without intravenous contrast. Date and time of exam: April 01, 2024 1419 hours INDICATIONS: Onset altered mental status beginning one week ago Technique: Multiple axial and sagittal images of the brain have been obtained MRA brain carotid images without contrast obtained, including 3-D postprocessing, vascular maximum intensity projection images Findings: Sellaturcica is not enlarged. The optic chiasm and infundibular stalk are not remarkable. Prepontine and interpeduncular cisterns are not enlarged. No localized enlargement of the medulla or tu. Fourth ventricle and cerebellar tonsils normal in position. Subacute hemorrhage is not seen. Fourth ventricle is midline. Mass in the cerebellopontine angle region is not evident. 7th and 8th nerve complexes exhibits symmetry. Globes are symmetrical with no retro-orbital mass. Increased white matter signal moderate Diffusion-weighted images demonstrate no focus of restricted diffusion Mass-effect upon the ventricular system is not identified. Impression: All the images are degraded by patient motion No gross acute infarct Moderate chronic microvascular white matter change
[2024-04-01] MEDS: metroNIDAZOLE/NS 500 MG IVPB 500 MG/100 ML BAG 200 MG IV ×4 (00:10→22:25)
[2024-04-01 04:00] VITALS: BP 97/60; PULSE 62; PULSE 74; RESP 15; TEMP 36.1; O2SAT 95
[2024-04-01] MEDS: RINGERS LACTATED 1000 ML 1,000 ML 80 ML IV (04:03)
[2024-04-01] MEDS: DEXTROSE 50%-WATER INJ 50 ML SYRINGE 25 ML IV (04:58)
[2024-04-01] MEDS: HEPARIN SOD INJ 5000 UNIT/ML VIAL SC ×3 (05:26→22:25)
[2024-04-01 05:32] LABS: Basophils % (Auto) 0 % (0-2.5); Eosinophils % (Auto) 0 % (0-10); Hematocrit 28.1 % (36.0-46.0); Hemoglobin 9.5 g/dL (12.0-16.0); Immature Granulocytes % (Auto) 1 % (0-0); Immature Granulocytes Auto 0.06 Thou/mm3 (0.00-0.00); Lymphocytes # (Auto) 1.1 Thou/mm3 (1.0-4.8); Lymphocytes % (Auto) 12 % (10-50); Mean Corpuscular HGB Conc 33.8 g/dl (31.0-37.0); Mean Corpuscular Hemoglobin 30.7 pg (25.0-35.0); Mean Corpuscular Volume 91 fL (80-100); Monocytes # (Auto) 0.2 Thou/mm3 (0.0-0.8); Monocytes % (Auto) 2 % (0-12); Neutrophils # (Auto) 7.8 Thou/mm3 (1.8-7.7); Neutrophils % (Auto) 85 % (37-80); Nucleated Red Blood Cell % 0 /100 WBC (0); Platelet Count 200 Thou/mm3 (140-440); RDW Standard Deviation 47.3 fL (36.4-46.3); Red Blood Count 3.09 Miln/mm3 (4.00-5.20); White Blood Count 9.2 Thou/mm3 (3.6-11.0)
[2024-04-01 06:00] VITALS: BMI 18.8
[2024-04-01 06:30] LABS: Alanine Aminotransferase 28 U/L (10-49); Albumin, Serum 2.9 gm/dL (3.4-4.8); Albumin/Globulin Ratio 1.2 (1.2-2.2); Alkaline Phosphatase 120 U/L (46-116); Anion Gap 10 (7-16); Aspartate Amino Transferase 37 U/L (0-34); BUN/Creatinine Ratio 52 Ratio (12-20); Bilirubin,Total 0.4 mg/dL (0.3-1.2); Blood Urea Nitrogen 26 mg/dL (9-23); Calcium 8.3 mg/dL (8.3-10.6); Calcium (Corrected) 9.2 mg/dL (8.5-10.1); Carbon Dioxide 25.2 mMol/L (20.0-31.0); Chloride 108 mMol/L (98-107); Creatinine (Component) 0.5 mg/dL (0.6-1.3); Estimated Creatinine Clearance 56.5 mL/min (>60); Globulin 2.5 gm/dL (2.3-3.5); Glucose 71 mg/dL (74-106); Magnesium 1.8 mg/dL (1.6-2.6); Osmolality,Calculated 287 (275-295); Phosphorous 2.1 mg/dL (2.4-5.1); Potassium 2.9 mMol/L (3.4-5.1); Sodium 143 mMol/L (136-145); Total Protein 5.4 gm/dL (5.7-8.2); eGFR > 60 See Note
[2024-04-01 08:00] VITALS: BP 94/56; PULSE 65; PULSE 74; RESP 20; TEMP 36.4; O2SAT 94
--- NOTE | 2024-04-01 09:10 | PC.NURSE ---
Called Dr. Alex about supp medications, pt on golytely via ng tube, ordered to hold medications and switch diet to clear liquid.
[2024-04-01] MEDS: POTASSIUM CHLORIDE 10% 20 MEQ/15 ML UDC 40 MEQ GT (09:37)
[2024-04-01] MEDS: NAPH,KPH MBDB 1 PACKET (1.5 GM) PO (09:37)
[2024-04-01] MEDS: Magnesium Sulfate 4 GM Ivpb 4 GM/50 ML BAG IV (09:37)
[2024-04-01] MEDS: cefTRIAXone/D5w 1gm IV premix 50 ML IV ×2 (09:37→12:11)
[2024-04-01] MEDS: LEVOTHYROXINE INJ 100 mCg VIAL 50 MCG IV (09:38)
[2024-04-01] MEDS: FOLIC ACID INJ 1 MG/0.2 ML IVP (09:38)
[2024-04-01] MEDS: THIAMINE INJ 100 MG/ML VIAL 2 ML IVP (09:38)
[2024-04-01] MEDS: PANTOPRAZOLE INJ 40 MG VIAL IVP (09:38)
[2024-04-01] MEDS: AZITHROMYCIN 250 MG TABLET 500 MG PO (09:38)
[2024-04-01] MEDS: ZINC SULFATE 220 MG CAPSULE PO (09:39)
--- NOTE | 2024-04-01 09:49 | XR_ITS ---
Examination: AP chest single view Technique one AP portable upright chest single view Exam date and time: April 01, 2024 0957 hours Comparison March 30, 2024 INDICATIONS: Hypoxia today. FINDINGS: Bilateral pneumonia, diffuse in the right lung Normal heart size Orogastric tube in the stomach IMPRESSION: Bilateral pneumonia, diffuse in the right lung
--- NOTE | 2024-04-01 10:06 | ESCONSULT_ITS ---
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 In ED patient came in by ambulance due to altered mental status as family reported the patient was unresponsive and she was found to have a blood sugar of 13 and by EMS. Initially patient was hypothermic and normotensive. Initial labs showed WBC 15.1, Hgb 9.5, ABG (pH 7.48, pCO2 34, pO2 300), sodium 144, potassium 3.4, chloride 110, BUN 43, creatinine 0.6, glucose 155, lactic acid 1.8, magnesium 1.4, troponin 0.109 and peaked at 1.033 before downtrending, CRP 15.4, BNP 69, procalcitonin 1.35, TSH 17.57, and free T40.44. Initial imaging included chest x-ray which showed some left pneumonia, head CT which was unremarkable, EKG that showed sinus rhythm, head/neck CTA showed 90% stenosis of right internal carotid, abdomen/pelvis CT showed right and left pneumonia, moderate to large amount of stool throughout the colon, distended bladder, and distended gallbladder. Additional imaging included chest x-ray done for NG tube placement, brain MRI which showed moderate chronic microvascular white matter changes, and no acute infarct. Echo done on 03/31/2024 has had the following findings: Negative bubble study. TTE is suboptimal to rule out PFO or ASD. Consider GLORIA if high clincial suspicion. Normal LV size. Moderate to severe LV systolic dysfunction with an EF of around 35 to 40%.Severe hypokinesis of the mid to apical septum, apical anterior and apical anterolateral segments and akinetic apex indicating possible LAD involvement versus Takotsubo syndrome. Difficult to comment on apical thrombus due to lack of definity. Normal RV size and function. Mild TR Moderate MAC. Mild MR Mild AV sclerosis without stenosis with mild AI. Patient was worked up for possible stroke with an NIHSS score of 25. Patient was found to have 90% stenosis of right internal carotid on head CTA. In-house neurology stated that patient's acute encephalopathy was most likely due to hypoglycemia and less likely due to stroke. Patient still pending MRI brain. During my assessment patient's granddaughter was at bedside and most of the history was taken from granddaughter as well as daughter who was on speaker phone as well as chart review due to patient's current condition. Patient's family patient stated that patient has been declining slowly since her CVA in 2021. At baseline during outpatient is nonverbal for the past 3 months, bedridden for the last 2 weeks, and has been having low oral intake as well for the past 2 weeks only eating pur?ed food. Per patient's granddaughter and daughter patient has been seeing her primary care physician in [place] and per patient's family members everything was okay. They mentioned that since March 22, 2023 when patient's grand son she had been more depressed, but she is not currently on any antidepressants. We discussed the echocardiogram findings with patient's family at bedside and and answered all questions they had. Spoke with daughter and granddaughter at bedside in the afternoon as well and discussed that due to patient's current condition she is a poor candidate for heart catheterization at this time, therefore she will be managed medically for now and that if she does improve in the future she may be more suitable for heart catheterization. Patient's family was understanding and was in agreement with this plan. They stated that since she has been nonverbal they had taught her some sign language and she was able to communicate this way, but she did not arrive with any form of communication including sign language and she had not been complaining of any chest pain as per family. Also spoke that due to low oral intake patient would benefit from PEG tube placement. Cardiology was consulted due to heart failure and elevated troponins. 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 cc:: cc: Tony Manning MD Review of Systems Review of Systems ROS Unobtainable: unobtainable due to mental status and unobtainable due to medical condition Past Medical History Past Medical History Comments PMH COMMENT: PMH: hypertension, hyperlipidemia, CVA in 2021 with residual right- sided deficit, DM2, and hypothyroidism Social Hx: As per family member she never smoked or do drugs and only drank socially Surgical Hx as per family did not have any surgeries FMH: As per family father and mother had diabetes and brother had a stroke, but no cardiac issues Exam Vital Signs Temp Pulse Resp BP Pulse Ox O2 Del Method O2 Flow Rate 97.5 F 65 20 94/56 L 94 L Nasal Cannula 3 04/01/24 08:00 04/01/24 08:00 04/01/24 08:00 04/01/24 08:00 04/01/24 08:00 04/01/24 08:00 04/01/24 08:00 Narrative Exam General:nonverbal, cachectic, temporal wasting, fragile, thin Eyes: able to trace Ears: No visible ear discharge Nose: No visible nasal discharge. Mouth/Throat: Dry mucous membranes,poor dentattion Neck: Neck supple, non-tender, no cervical lymphadenopathy. Lungs: Clear LEONEL to auscultation and percussion, No accessory muscle use. Cardio: Normal S1/S2, regular rhythm, no murmurs, no JVD Abdomen: Soft, non-tender, no palpable masses, peristalsis present, no guarding or rebound. Extremities: Symmetrical, contractures of LEONEL Wrist and LE, no peripheral edema , non-tender, peripheral pulses presents. Skin: No rashes, no lesions, warm to touch. Neuro: Could not be assessed due to patient's current condition, able to move all extremities Results Labs 04/01/24 04:15 04/01/24 04:15 Labs: Short CBC 04/01/24 Range/Units 04:15 WBC 9.2 D (3.6-11.0) Thou/mm3 Hgb 9.5 L (12.0-16.0) g/dL Hct 28.1 L (36.0-46.0) % Plt Count 200 (140-440) Thou/mm3 BMP 04/01/24 04:15 Sodium 143 Potassium 2.9 L D Chloride 108 H Carbon Dioxide 25.2 BUN 26 H Creatinine 0.5 L Glucose 71 L D Calcium 8.3 Liver Function 04/01/24 Range/Units 04:15 Total Bilirubin 0.4 (0.3-1.2) mg/dL AST 37 H (0-34) U/L ALT 28 (10-49) U/L Alkaline Phosphatase 120 H D (46-116) U/L Albumin 2.9 L (3.4-4.8) gm/dL ABG Interpretation ABG results: 03/30/24 13:55 ABG pH 7.48 H ABG pCO2 34 ABG pO2 300 H ABG HCO3 25 ABG O2 Saturation 100 H ABG Base Excess 2 Quality Measures Quality Measures stroke Suspected type of Stroke: Unknown at this time Tenecteplase given: Reason(s) Tenecteplase not given: Outside the time window not given Rehab services: PT evaluation ordered VTE Prophylaxis: pharmaceutical Antithrombotic by day 2:: not indicated (describe) Statin ordered: >75 y/o moderate or high intensity dose Anticoagulation ordered for A-fib or flutter (current or hx): not indicated Advance care planning discussed with:: child and other ([facility]) Medications Home Medications and Allergies Home Medications ?Medication ?Instructions ?Recorded ?Confirmed ?Type ascorbic acid (vitamin C) 1,000 mg 1,000 mg PO DAILY 03/31/24 03/31/24 History tablet atorvastatin 40 mg tablet 40 mg PO HS 03/31/24 03/31/24 History cholecalciferol (vitamin D3) 25 25 mcg PO DAILY 03/31/24 03/31/24 History mcg (1,000 unit) capsule cyanocobalamin (vitamin B-12) 3,000 mcg PO DAILY 03/31/24 03/31/24 History 1,000 mcg tablet glyburide 5 mg tablet 5 mg PO DAILY 03/31/24 03/31/24 History levothyroxine 50 mcg tablet 50 mcg PO HANNAH 03/31/24 03/31/24 History metformin 625 mg tablet 625 mg PO TID 03/31/24 03/31/24 History Allergies Allergy/AdvReac Type Severity Reaction Status Date / Time No Known Allergies Allergy Verified 03/30/24 14:19 Visit Medications Acetaminophen (Acetaminophen 325 Mg Tablet) 650 mg PO Q6H PRN PRN Reason: Fever >101.5 Stop: 04/29/24 16:16 Acetaminophen (Acetaminophen 325 Mg Tablet) 650 mg PO Q6H PRN PRN Reason: PAIN SCALE 1-3 (mild Stop: 04/29/24 16:16 Last Admin: 03/31/24 21:10 Dose: 650 mg Aspirin (Aspirin 300 Mg Supp) 300 mg DE QDAY [facility] Stop: 04/30/24 08:59 Last Admin: 04/01/24 09:09 Dose: Not Given Azithromycin (Azithromycin 250 Mg Tablet) 500 mg PO QDAY [facility] Stop: 04/07/24 08:59 Last Admin: 04/01/24 09:38 Dose: 500 mg Bisacodyl (Bisacodyl 10 Mg Supp) 10 mg DE QDAY [facility]; Protocol Stop: 04/29/24 18:59 Last Admin: 04/01/24 09:09 Dose: Not Given Dextrose (Dextrose 50%-Water Inj 50 Ml Syringe) 25 ml IV Q15MIN PRN PRN Reason: BG 50-70 responsive npo pt Stop: 04/29/24 16:21 Last Admin: 04/01/24 04:58 Dose: 25 ml Dextrose (Dextrose 50%-Water Inj 50 Ml Syringe) 50 ml IV Q15MIN PRN PRN Reason: BG <50 OR BG <70 & pt unresponsive Stop: 04/29/24 16:21 Folic Acid (Folic Acid Inj 1 Mg/0.2 Ml) 1 mg IVP QDAY [facility] Stop: 04/29/24 16:44 Last Admin: 04/01/24 09:38 Dose: 1 mg Glucagon (Glucagon Inj 1 Mg Vial) 1 mg IM Q15MIN PRN PRN Reason: BG <70, and no IV access Heparin Sodium (Porcine) (Heparin Sod Inj 5000 Unit/Ml Vial) 5,000 unit SC Q8HR [facility] Stop: 04/13/24 17:59 Last Admin: 04/01/24 05:26 Dose: 5,000 unit Metronidazole (Flagyl 500 Mg Iv) 500 mg in 100 mls @ 200 mls/hr IV Q6HR [facility] Stop: 04/07/24 10:18 Last Admin: 04/01/24 05:26 Dose: 200 mls/hr Ceftriaxone Sodium/Dextrose (Rocephin/D5w 1gm Iv Premix) 50 mls @ 100 mls/hr IV Q12HR [facility] Stop: 04/07/24 20:59 Last Admin: 04/01/24 09:37 Dose: 100 mls/hr Magnesium Sulfate (Magnesium Sulfate Ivpb) 4 gm in 50 mls @ 12.5 mls/hr IV X1 ONE Stop: 04/01/24 11:44 Last Admin: 04/01/24 09:37 Dose: 12.5 mls/hr Insulin Human Lispro (Insulin Lispro (Admelog) 1 Unit/0.01 Ml Unit) 0 unit SC Q6HR [facility]; Protocol Stop: 04/29/24 16:59 Last Admin: 04/01/24 06:02 Dose: Not Given Levothyroxine Sodium (Levothyroxine Inj 100 Mcg Vial) 50 mcg IV QDAY [facility] Stop: 04/29/24 17:29 Last Admin: 04/01/24 09:38 Dose: 50 mcg Ondansetron HCl (Ondansetron Inj 2 Mg/Ml Inj 2 Ml) 4 mg IV Q6H PRN; Protocol PRN Reason: NAUSEA OR VOMITING Stop: 04/29/24 16:16 Pantoprazole Sodium (Pantoprazole Inj 40 Mg Vial) 40 mg IVP QDAY [facility] Stop: 04/29/24 16:29 Last Admin: 04/01/24 09:38 Dose: 40 mg Thiamine HCl (Thiamine Inj 100 Mg/Ml Vial 2 Ml) 100 mg IVP QDAY [facility] Stop: 04/29/24 16:44 Last Admin: 04/01/24 09:38 Dose: 100 mg Zinc Sulfate (Zinc Sulfate 220 Mg Capsule) 220 mg PO QDAY [facility] Stop: 04/04/24 16:44 Last Admin: 04/01/24 09:39 Dose: 220 mg Discontinued Medications Aspirin (Aspirin Ec 81 Mg Tabec) 81 mg PO QDAY [facility] Stop: 04/29/24 16:44 Last Admin: 03/30/24 19:26 Dose: Not Given Aspirin (Aspirin 300 Mg Supp) 300 mg DE X1 ONE Stop: 03/30/24 17:37 Last Admin: 03/30/24 19:42 Dose: 300 mg Hydrocortisone Sodium Succinate (Hydrocortisone Sod Succ Inj 100 Mg Vial) 50 mg IV X1 ONE Stop: 03/30/24 17:24 Last Admin: 03/30/24 19:26 Dose: Not Given Hydrocortisone Sodium Succinate (Hydrocortisone Sod Succ Inj 100 Mg Vial) 50 mg IV X1 ONE Stop: 03/30/24 17:24 Last Admin: 03/30/24 20:57 Dose: 50 mg Ceftriaxone Sodium/Dextrose (Rocephin/D5w 1gm Iv Premix) 50 mls @ 100 mls/hr IV X1 ONE Stop: 03/30/24 14:17 Last Infusion: 03/30/24 16:10 Dose: Infused Sodium Chloride (Ns) 1,000 mls @ 999 mls/hr IV .Q1H1M ONE Stop: 03/30/24 14:48 Last Infusion: 03/30/24 17:23 Dose: Infused Azithromycin 500 mg/ Sodium (Chloride) 250 mls @ 250 mls/hr IV X1 ONE Stop: 03/30/24 15:42 Last Infusion: 03/30/24 19:27 Dose: Infused Magnesium Sulfate (Magnesium Sulfate Ivpb) 2 gm in 50 mls @ 25 mls/hr IV X1 ONE Stop: 03/30/24 17:42 Last Infusion: 03/30/24 19:26 Dose: Infused Sodium Chloride (Ns) 250 mls @ 999 mls/hr IV .Q16M ONE Stop: 03/30/24 16:32 Last Infusion: 03/30/24 17:24 Dose: Infused Magnesium Sulfate (Magnesium Sulfate Ivpb) 2 gm in 50 mls @ 25 mls/hr IV X1 ONE Stop: 03/30/24 18:29 Last Infusion: 03/30/24 22:00 Dose: Infused Potassium Chloride (Kcl Ivpb) 10 meq in 100 mls @ 100 mls/hr IV Q1H [facility] Stop: 03/30/24 20:29 Last Admin: 03/30/24 23:30 Dose: 100 mls/hr Sodium Chloride (Ns) 1,000 mls @ 80 mls/hr IV .[id number] [facility] Stop: 04/29/24 16:41 Last Admin: 03/30/24 19:26 Dose: Not Given Dextrose/Sodium Chloride (D5-1/2ns) 1,000 mls @ 100 mls/hr IV BID [facility] Stop: 04/29/24 16:47 Last Admin: 03/31/24 05:50 Dose: 100 mls/hr Ceftriaxone Sodium/Dextrose (Rocephin/D5w 1gm Iv Premix) 50 mls @ 100 mls/hr IV QDAY [facility] Stop: 04/07/24 08:56 Last Admin: 03/31/24 09:32 Dose: 100 mls/hr Ceftriaxone Sodium/Dextrose (Rocephin/D5w 1gm Iv Premix) 50 mls @ 100 mls/hr IV Q12HR [facility] Stop: 04/07/24 10:17 Azithromycin 500 mg/ Sodium (Chloride) 250 mls @ 250 mls/hr IV QDAY [facility] Stop: 04/07/24 10:18 Lactated Ringer's (Lactated Ringers) 1,000 mls @ 80 mls/hr IV .[id number] [facility] Stop: 04/01/24 11:29 Last Admin: 04/01/24 04:03 Dose: 80 mls/hr Lactated Ringer's (Lactated Ringers) 1,000 mls @ 80 mls/hr IV .[id number] [facility] Stop: 04/02/24 07:46 Last Admin: 04/01/24 09:12 Dose: Not Given Insulin Human Lispro (Insulin Lispro (Admelog) 1 Unit/0.01 Ml Unit) 0 unit SC [facility]; Protocol Stop: 04/29/24 16:59 Levothyroxine Sodium (Levothyroxine Inj 100 Mcg Vial) 50 mcg IV QDAY [facility] Stop: 04/29/24 17:29 Polyethylene Glycol/Electrolytes (Na Brown/Nahco3/Yves/Peg (Golytely) 4,000 Ml Btl) 4,000 ml PO X1 ONE Stop: 03/31/24 10:28 Last Admin: 03/31/24 12:23 Dose: 1 bottle Potassium Chloride (Potassium Chloride 10% 20 Meq/15 Ml Udc) 40 meq GT X1 ONE Stop: 04/01/24 07:46 Last Admin: 04/01/24 09:37 Dose: 40 meq Potassium Phos/Sodium Phos (Naph,[facility] Mbdb 1 Packet (1.5 Gm)) 1 packet PO X1 ONE Stop: 03/31/24 07:59 Last Admin: 03/31/24 09:33 Dose: 1 packet Potassium Phos/Sodium Phos (Naph,[facility] Mbdb 1 Packet (1.5 Gm)) 1 packet PO X1 ONE Stop: 04/01/24 07:46 Last Admin: 04/01/24 09:37 Dose: 1 packet Assessment & Plan Plan 79-year-old female with past medical history of hypertension, hyperlipidemia, 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 1. Acute decompensated systolic heart failure (EF 35 to 40%) 2. NSTEMI 3. Essential hypertension ?Given patient's elevated troponins which peaked at 1.033 and down trended this is most likely NSTEMI type II likely demand ischemia ?Given patient is a poor candidate for heart catheterization at this time due to other comorbidities we will treat medically for now ?Patient's blood pressure has been under control during her hospital stay. ?Echo done on 03/31/2024 has had the following findings: Negative bubble study. TTE is suboptimal to rule out PFO or ASD. Consider GLORIA if high clincial suspicion. Normal LV size. Moderate to severe LV systolic dysfunction with an EF of around 35 to 40%.Severe hypokinesis of the mid to apical septum, apical anterior and apical anterolateral segments and akinetic apex indicating possible LAD involvement versus Takotsubo syndrome. Difficult to comment on apical thrombus due to lack of definity. Normal RV size and function. Mild TR Moderate MAC. Mild MR Mild AV sclerosis without stenosis with mild AI. ?Patient most likely has some underlying CAD, but given multiple comorbidities and current clinical status she is not a good candidate for heart catheterization and family is aware of this and are in agreement. Plan: ?Recommend to treat patient as NSTEMI ?No need to trend troponins ?Okay to start heparin drip if no contraindications as well as aspirin and high intensity statin ? Given patient's multiple comorbidities and history of decline in health would recommend primary care team to have goals of care discussions with patient's family. 4. Acute encephalopathy 5. Hypoglycemia 6. DM2 ?Patient has been taking glyburide 5 mg as well as metformin 625 mg 3 times daily which could have precipitated his patient hypoglycemia in the event that she has been having poor oral intake. ? Continue current management as per primary care team 7. Failure to thrive ?Patient may benefit from PEG tube placement as she has been having poor oral intake for the past few weeks. ? Recommend to follow GI recommendations ? Continue current management as per primary care team 8. CVA with residual right-sided deficits 9. Hyperlipidemia ? Continue current management as primary care team Continue rest of management as per primary team. We are grateful to be able to participate in Mrs. Rudd's care. Thank you for the consult Plan of care discussed with attending Dealer Support Technician, Dr. Ivory Iniguez MD PGY-1 Attending Provider Attestation/Addendum I have personally seen and examined the patient separately on the above date of service and discussed the plan of care with the resident. I reviewed the resident Dr. Richard consultation progress note and agree with the resident findings and plan in the note above and have also edited the documentation to reflect my findings and plan. Cardiology was consulted because of the abnormal echocardiogram which showed moderate to severe LV dysfunction with an EF of around 35 to 40%. Severe hypokinesis of the mid to apical septum, apical anterior and apical anterolateral segments as well as secondary to Indicating possible LAD involvement versus Takotsubo syndrome. RV size and function was normal and it showed mild valvular abnormalities. During my examination patient did not appear to be any fluid overload and patient is nonverbal bedbound and has severe contractures of all extremities and unable to provide any kind of history. VS per the daughter as well as the granddaughter were at the bedside patient has been like this for the past few months that she has not been able to eat and she is actually being taken for a PEG tube placement today and because of her poor nutrition patient appears cachectic. Explained to the family in the detail about a possible syndrome and the possible LAD disease given echocardiogram findings but as per the family she never complained of any chest pain or chest pressure as she does show in the sign language whenever something hurts her. Explained to the family that it would be futile to pursue the further workup of her new onset severe systolic congestive heart failure. The regional wall motion abnormalities involving the LAD territory as it could be well Takotsubo syndrome given her recent hospitalization. Patient is not an ideal candidate for any kind of cardiac catheterization as she cannot straighten any of her extremities because of the significant cramps factors. Also patient is bedbound, nonverbal with multiple comorbidities as mentioned above and recommend only medical treatment for now. Recommend aggressive medical treatment with goal-directed medical therapy with beta-devon, Entresto as well as spironolactone based on the blood pressure as well as the kidney function. If patient can tolerate patient should be on aspirin as well as statin high intensity. Check lipid profile TSH as well as A1c. Patient does not appear to be fluid overloaded and does not need diuretics at the present point of time. Patient actually is not eating because of dysphagia and plan for PEG tube for now. Also recommend primary team to discuss the goals of care for the patient in detail for the patient. Management of rest of the medical conditions as per primary team and other consultants. Thank you for the consult and allowing me to participate in the care of the patient. Cardiology will continue to follow. Rao Dodson M.D. Interventional Cardiology
[2024-04-01 10:34] LABS: Base Excess 3 (-3-3); HCO3 25 mEq/L (20-26); Inspired O2, VO2 Liters 10 L/min; O2 Saturation 100 % (91-98); PCO2 31 mmHg (32.0-48.0); PO2 155 mmHg (83-108); pH, Arterial 7.52 (7.35-7.45)
[2024-04-01 10:35] LABS: Allen Test Not Performed; Puncture Site Left Radial
[2024-04-01 12:00] VITALS: BP 90/52; PULSE 75; PULSE 77; RESP 14; TEMP 36.4; O2SAT 97
--- NOTE | 2024-04-01 12:56 | PC.SS ---
SS submitted DME inquiry through [facility] care for a hospital bed and Wheelchair. [facility] will contact family in regards to Delivery.
--- NOTE | 2024-04-01 13:36 | ESPR_ITS ---
Documentation for date of: 04/01/24 Subjective Subjective Interval history: Patient seen today at the bedside found awake, moaning, no acute distress. No overnight events reported. Daughter at bedside states patient is at baseline. on golytely prep for colonoscopy and pending peg tube placement. When examining patient there is concern that her respiratory rate drops below 8 but recovers after waking up. ABGs ordered, showed PO2 ~30, however spoke to RT states its mixed venous, ordered repeat ABG, will follow up. Cardiology consulted due to echo findings indicating possible LAD obstruction, they recommend heparin drip at this time. Patients family wants patient to continue to be FULL CODE and do aggressive medical management. Exam Vital Signs Temp Pulse Resp BP Pulse Ox O2 Del Method O2 Flow Rate 97.6 F 77 14 90/52 L 97 Oxy Mask 8 04/01/24 12:00 04/01/24 12:00 04/01/24 12:00 04/01/24 12:00 04/01/24 12:00 04/01/24 12:00 04/01/24 12:00 Narrative Exam Physical Exam GENERAL: NAD, frail, cachectic, temporal wasting HEENT: dry mucosa. Eyes open, symmetrical, & clear CARDIO: No chest pain on palpation. Heart RRR, no obvious murmurs PULM: No noted coughing/dyspnea. Lungs CTA B/L, no R/W/R GI: Abdomen soft, nondistended, no pain on palpation. BSx4 URO/[employer]YING [employer] COOKING CASING:: No further abnormalities noted. Musa catheter SKIN/MSK/EXT: pressure ulcer on sacrum and buttocks, no pain on palpation. Pedal pulses present B/L NEURO: unable to assess Objective Labs 04/02/24 04:40 04/02/24 04:40 Labs: Laboratory Results - last 24 hr 03/30/24 04/01/24 04/01/24 20:06 04:15 10:25 WBC 9.2 D RBC 3.09 L Hgb 9.5 L Hct 28.1 L MCV 91 MCH 30.7 MCHC 33.8 RDW Std Deviation 47.3 H Plt Count 200 Neut % (Auto) 85 H Lymph % (Auto) 12 [place] % (Auto) 2 Eos % (Auto) 0 Baso % (Auto) 0 Neut # (Auto) 7.8 H Lymph # (Auto) 1.1 [place] # (Auto) 0.2 Eos # (Auto) 0.0 Baso # (Auto) 0.0 Immature Gran # (Auto) 0.06 H Absolute Nucleated RBC 0.00 Immature Gran % 1 H Nucleated RBC % 0 Puncture Site Left Radial ABG pH 7.52 H ABG pCO2 31 L ABG pO2 155 H D ABG HCO3 25 ABG O2 Saturation 100 H ABG Base Excess 3 Oxygen Liter Flow 10 Sodium 143 Potassium 2.9 L D Chloride 108 H Carbon Dioxide 25.2 Anion Gap 10 BUN 26 H Creatinine 0.5 L Estim Creat Clear Calc 56.5 L eGFR > 60 BUN/Creatinine Ratio 52 H Glucose 71 L D Calculated Osmolality 287 Calcium 8.3 Corrected Calcium 9.2 Phosphorus 2.1 L Magnesium 1.8 Total Bilirubin 0.4 AST 37 H ALT 28 Alkaline Phosphatase 120 H D Total Protein 5.4 L Albumin 2.9 L Globulin 2.5 Albumin/Globulin Ratio 1.2 Coccidioides IgM Ab Negative ABG Interpretation ABG results: 03/30/24 04/01/24 13:55 10:25 ABG pH 7.48 H 7.52 H ABG pCO2 34 31 L ABG pO2 300 H 155 H D ABG HCO3 25 25 ABG O2 Saturation 100 H 100 H ABG Base Excess 2 3 Quality Measures Quality Measures stroke Suspected type of Stroke: Unknown at this time Tenecteplase given: Reason(s) Tenecteplase not given: Outside the time window not given Rehab services: PT evaluation ordered and Speech Language Pathology eval ordered VTE Prophylaxis: pharmaceutical Antithrombotic by day 2:: not indicated (describe) Statin ordered: >75 y/o moderate or high intensity dose Anticoagulation ordered for A-fib or flutter (current or hx): not indicated Advance care planning discussed with:: patient and child Assessment & Plan Assessment Current Active Medications: Generic Name Dose Route Start Last Admin Trade Name Freq PRN Reason Stop Dose Admin Acetaminophen 650 mg 03/30/24 16:17 Acetaminophen 325 Mg Tablet PO 04/29/24 16:16 Q6H PRN Fever >101.5 Acetaminophen 650 mg 03/30/24 16:17 03/31/24 21:10 Acetaminophen 325 Mg Tablet PO 04/29/24 16:16 650 mg Q6H PRN Administration PAIN SCALE 1-3 (mild Aspirin 300 mg 03/31/24 09:00 04/01/24 09:09 Aspirin 300 Mg Supp NV 04/30/24 08:59 Not Given QDAY ROGER Azithromycin 500 mg 03/31/24 09:00 04/01/24 09:38 Azithromycin 250 Mg Tablet PO 04/07/24 08:59 500 mg QDAY ROGER Administration Bisacodyl 10 mg 03/30/24 19:00 04/01/24 09:09 Bisacodyl 10 Mg Supp NV 04/29/24 18:59 Not Given QDAY [facility] Protocol Dextrose 25 ml 03/30/24 16:22 04/01/24 04:58 Dextrose 50%-Water Inj 50 Ml Syringe IV 04/29/24 16:21 25 ml Q15MIN PRN Administration BG 50-70 responsive npo pt Dextrose 50 ml 03/30/24 16:22 Dextrose 50%-Water Inj 50 Ml Syringe IV 04/29/24 16:21 Q15MIN PRN BG <50 OR BG <70 & pt unresponsive Folic Acid 1 mg 03/30/24 16:45 04/01/24 09:38 Folic Acid Inj 1 Mg/0.2 Ml IVP 04/29/24 16:44 1 mg QDAY ROGER Administration Glucagon 1 mg 03/30/24 16:22 Glucagon Inj 1 Mg Vial IM Q15MIN PRN BG <70, and no IV access Heparin Sodium (Porcine) 5,000 unit 03/30/24 18:00 04/01/24 05:26 Heparin Sod Inj 5000 Unit/Ml Vial SC 04/13/24 17:59 5,000 unit Q8HR ROGER Administration Ceftriaxone Sodium 2 gm/ 100 mls @ 200 mls/hr 04/02/24 09:00 Sodium Chloride IV 04/09/24 08:59 QDAY ROGER Metronidazole 500 mg in 100 mls @ 200 mls/hr 04/01/24 14:00 Flagyl 500 Mg Iv IV 04/08/24 13:59 Q8HR [facility] Insulin Human Lispro 0 unit 03/30/24 17:00 04/01/24 11:33 Insulin Lispro (Admelog) 1 Unit/0.01 Ml Unit SC 04/29/24 16:59 Not Given Q6HR [facility] Protocol Levothyroxine Sodium 50 mcg 03/30/24 17:30 04/01/24 09:38 Levothyroxine Inj 100 Mcg Vial IV 04/29/24 17:29 50 mcg QDAY ROGER Administration Ondansetron HCl 4 mg 03/30/24 16:17 Ondansetron Inj 2 Mg/Ml Inj 2 Ml IV 04/29/24 16:16 Q6H PRN NAUSEA OR VOMITING Protocol Pantoprazole Sodium 40 mg 03/30/24 16:30 04/01/24 09:38 Pantoprazole Inj 40 Mg Vial IVP 04/29/24 16:29 40 mg QDAY ROGER Administration Thiamine HCl 100 mg 03/30/24 16:45 04/01/24 09:38 Thiamine Inj 100 Mg/Ml Vial 2 Ml IVP 04/29/24 16:44 100 mg QDAY ROGER Administration Zinc Sulfate 220 mg 03/30/24 16:45 04/01/24 09:39 Zinc Sulfate 220 Mg Capsule PO 04/04/24 16:44 220 mg QDAY ROGER Administration Plan 79 y/o F with PMHx of CVA 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 Per daughter patient was able to do activities of daily living 2 months ago, including walking with a walker, eating by herself, but has progressively declined until 1 week ago were she acutely declined and developed urinary incontinence. Patient admitted for acute metabolic encephalopathy secondary to hypoglycemia. #Sepsis secondary to Pneumonia vs proctitis Patient with hypothermia, elevated CRP, procalcitonin and WBCs, with altered mental status UA is negative, CXR shows pneumonia, likely aspiration as patient on arrival had GCS of 3 CT abdomen pelvis was done which showed significant pneumonia as well as rectal wall thickening possibly proctitis, as well as distended bladder daughter states patient has been having urinary incontinence and trouble urinating, musa catheter in place - on LR @ 80ml/hr - on Ceftriaxone 1g IV q 12hr - on Azithromycin 500 IV q day - on Flagyl 500 IV q6hr - Urine Cx pending - blood cultures pending #Acute metabolic encephalopathy-improved #Hypoglycemia- improved #Hypothermia- improved #B12 toxicity #CVA- low suspicion DDx: Hypoglycemia secondary to sulfonylurea, Sepsis, B12 toxicity, new CVA(low suspicion), likely secondary to hypoglycemia in the setting of sulfonylurea use hypothermia also likely due to hypoglycemia Per daughter patient is able to do ADLs until 2months ago where she has progressively declined and then 1 week ago she acutely declined Patient saw her PCP about 2 months ago, was not given new medications but frequency changes were made to diabetes regimen On admission was found with hypoglycemia (13) and GSC 3, improved after D10 administration to 96, and is closer to baseline Stroke protocol was activated, Head CT showed Negative for acute hemorrhage, mass effect or midline shift Head/Neck CTA: 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 Patient found Vitamin B12 >2000 - on LR @ 80ml/hr - Aspirin per rectum - MRI brain pending - Echo with bubble study pending - Physical therapy eval pending - BS checks q 6 hours - Neuro checks q4 hours - Neurology consulted, appreciate recommendations - aspiration precautions - HOB>30 #Cachexia #Failure to thrive Patient has been having low PO intake for past few weeks, per daughter patient has been hiding food under the couch BMI is 17.8, patient nutritional needs not being met, will likely require PEG tube placement to meet nutritional demand, GI already consulted. - phos checks daily - folic and thiamine IV - pending PEG tube placement - monitor for refeeding syndrome #Possible Proctitis CT abdomen pelvis was done and showed rectal wall thickening concerning for proctitis GI, Dr. Hinojosa was consulted and will do Colonoscopy patient not having good PO intake - NGT placed - on Golytely prep - Colonoscopy pending #Troponinemia Patient on arrival had elevated troponins which peaked at 1.05 and are now downtrending EKG showed no significant ST changes likely in the setting of septic process Echo showed Negative bubble study. TTE is suboptimal to rule out PFO or ASD. Consider GLORIA if high clincial suspicion. Normal LV size. Moderate to severe LV systolic dysfunction with an EF of around 35 to 40%. Severe hypokinesis of the mid to apical septum, apical anterior and apical anterolateral segments and akinetic apex indicating possible LAD involvement versus Takotsubo syndrome. Difficult to comment on apical thrombus due to lack of definity. Normal RV size and function. Mild TR, Moderate MAC. Mild MR, Mild AV sclerosis without stenosis with mild AI. - on Heparin drip - Asa - statin #Hypothyroidism patient has had low po intake past few weeks- months TSH found elevated, Free T4 low - IV levothyroxine #Hypomagnesemia- resolved #Hypophosphatemia - replete as needed #Elevated Alkaline phosphatase already downtrending - monitor for now #Diabetes - insulin sliding scale - q6 BS check - hypoglycemia protocol in place Case discussed with my senior Dr. Calvo PGY-[address] Nigel Head MD PGY-1 Disposition: Tele Fluids: LR Feeding: Pureed food Thrombo prophylaxis: Heparin Gastric Ulcer prophylaxis: Pantoprazole 40 mg IV daily CODE STATUS: Full code Senior resident attestation: Patient evaluated and examined at the bedside, plan of care discussed with rest of the team including my attending physician, except as noted. Chief complaint at presentation acute metabolic encephalopathy, secondary to hypoglycemia, likely due to sulfonylurea/glyburide use as well as poor p.o. intake. Hypoglycemia was corrected with dextrose infusion and per family patient is very close to her baseline mental status. Reported history of old CVA more than a year ago which left patient permanently debilitated with right sided weakness and nonverbal status, the patient has now developed contracture of the right upper limb, #Stroke rule out: CT head negative for acute hemorrhage, MRI brain was a poor study due to patient movement, pending neurology recommendations. Continue aspirin per rectum. #Type II RI: Patient noted to have mild troponin elevation. Echocardiogram showed reduced EF and segmental wall motion abnormality with apical hypokinesis, possible etiology coronary artery disease versus Takotsubo cardiomyopathy. Cardiology recommended heparin drip and the documentation, but spoke with the drag car racer Dr. Radha Castelan who said it is uncertain if patient is having an acute NSTEMI at this moment, echocardiogram wall motion abnormality can also possibly be due to old myocardial infarction. Given patient's current bedbound status as well as nonverbal status and right-sided hemiparesis, spoke to patient's daughter regarding further treatment options, risks of heparin infusion including bleeding as well as patient discomfort were discussed, daughter decided to continue with antiplatelet treatment and hold off on anticoagulation at this point. I agree with assessment, likely old ischemic changes seen on echocardiogram. No acute EKG changes concerning for acute myocardial infarction. #Failure to thrive: Patient is pending PEG tube placement, gastroenterology recommendations appreciated. #Proctitis: Currently patient is on GoLytely prep via NG tube, pending colonoscopy. #Acute hypoxic respiratory failure: This a.m. patient noted to be mildly hypoxemic on SpO2 monitoring, chest x-ray shows pneumonia, currently on antibiotics for aspiration pneumonia, also concern for airway compromise, as patient is seen with her mouth wide open at all times, tongue falling back obstructing airway, while she was asleep. Upon awaking the patient, patient was able to breathe normally. Discussed family, patient may need endotracheal intubation and possible tracheostomy at a later stage if patient develops persistent hypoxic respiratory failure due to inability to protect airway. 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 Per daughter, patient was able to do activities of daily living 2 months ago including walking with her walker and feeding herself however in the past couple weeks she has been having altered mentation and then bedbound. In the ER, patient was noted to have a GCS of 3 with blood sugars of 13 subsequently received dextrose and subsequently mentation slightly improved and admitted for acute metabolic encephalopathy secondary to hypoglycemia and stroke workup. Patient noted to have elvation in troponin and echocardiogram noted hypokinesis of the mid to apical septum indicating possible LAD involvement versus Takotsubo syndrome. Overall, patient is poor prognosis however family requesting to have everything done and be full code which will respect. I reviewed above note and agree with findings and plans. I have also personally examined the patient with medicine team and went over assessment and plan with medical team including internet marketing assistant and resident physician.
[2024-04-01 13:42] LABS: Cocci Serology, IgG Negative (Negative)
[2024-04-01 16:00] VITALS: BP 98/77; PULSE 70; PULSE 76; RESP 19; TEMP 36.6; O2SAT 99
[2024-04-01 17:30] LABS: Base Excess 1 (-3-3); HCO3 25 mEq/L (20-26); Inspired Oxygen, FIO2 21 %; O2 Saturation 70 % (91-98); PCO2 34 mmHg (32.0-48.0); pH, Arterial 7.47 (7.35-7.45)
[2024-04-01 17:42] LABS: Allen Test Performed/OK; Puncture Site Left Radial
[2024-04-01 17:43] LABS: PO2 36 mmHg (83-108)
[2024-04-01 17:56] LABS: INR 1.1 (0.9-1.3); Partial Thromboplastin Time 34.2 Seconds (22.0-36.0); Prothrombin Time 11.8 Seconds (9.0-12.2)
--- NOTE | 2024-04-01 17:57 | PC.RT ---
Results from 1720 ABG appear to be mixed venous, MD notified.
--- NOTE | 2024-04-01 18:27 | PC.RT ---
Attempted to obtain ABG, unable to obtain. Attempted to call ordering physician with no answer.
--- NOTE | 2024-04-01 18:50 | PD.IMPROG ---
Documentation for date of: 04/01/24 Subjective Subjective Interval history: Patient evaluated On GoLytely prep Also she has failure to thrive Most likely will need PEG tube placement and the family is agreeable to that Exam Vital Signs Temp Pulse Resp BP Pulse Ox O2 Del Method O2 Flow Rate 97.8 F 76 19 98/77 99 Nasal Cannula 7 04/01/24 16:00 04/01/24 16:00 04/01/24 16:00 04/01/24 16:00 04/01/24 16:00 04/01/24 16:00 04/01/24 16:00 Objective Labs 04/01/24 04:15 04/01/24 04:15 Labs: Laboratory Results - last 24 hr 03/30/24 04/01/24 04/01/24 20:06 04:15 10:25 WBC 9.2 D RBC 3.09 L Hgb 9.5 L Hct 28.1 L MCV 91 MCH 30.7 MCHC 33.8 RDW Std Deviation 47.3 H Plt Count 200 Neut % (Auto) 85 H Lymph % (Auto) 12 [place] % (Auto) 2 Eos % (Auto) 0 Baso % (Auto) 0 Neut # (Auto) 7.8 H Lymph # (Auto) 1.1 [place] # (Auto) 0.2 Eos # (Auto) 0.0 Baso # (Auto) 0.0 Immature Gran # (Auto) 0.06 H Absolute Nucleated RBC 0.00 Immature Gran % 1 H Nucleated RBC % 0 PT INR APTT Puncture Site Left Radial ABG pH 7.52 H ABG pCO2 31 L ABG pO2 155 H D ABG HCO3 25 ABG O2 Saturation 100 H ABG Base Excess 3 Oxygen Liter Flow 10 FiO2 Sodium 143 Potassium 2.9 L D Chloride 108 H Carbon Dioxide 25.2 Anion Gap 10 BUN 26 H Creatinine 0.5 L Estim Creat Clear Calc 56.5 L eGFR > 60 BUN/Creatinine Ratio 52 H Glucose 71 L D Calculated Osmolality 287 Calcium 8.3 Corrected Calcium 9.2 Phosphorus 2.1 L Magnesium 1.8 Total Bilirubin 0.4 AST 37 H ALT 28 Alkaline Phosphatase 120 H D Total Protein 5.4 L Albumin 2.9 L Globulin 2.5 Albumin/Globulin Ratio 1.2 Coccidioides IgG Ab Negative 04/01/24 04/01/24 17:20 17:24 WBC RBC Hgb Hct MCV MCH MCHC RDW Std Deviation Plt Count Neut % (Auto) Lymph % (Auto) [place] % (Auto) Eos % (Auto) Baso % (Auto) Neut # (Auto) Lymph # (Auto) [place] # (Auto) Eos # (Auto) Baso # (Auto) Immature Gran # (Auto) Absolute Nucleated RBC Immature Gran % Nucleated RBC % PT 11.8 INR 1.1 APTT 34.2 Puncture Site Left Radial ABG pH 7.47 H ABG pCO2 34 ABG pO2 36 L* D ABG HCO3 25 ABG O2 Saturation 70 L ABG Base Excess 1 Oxygen Liter Flow FiO2 21 Sodium Potassium Chloride Carbon Dioxide Anion Gap BUN Creatinine Estim Creat Clear Calc eGFR BUN/Creatinine Ratio Glucose Calculated Osmolality Calcium Corrected Calcium Phosphorus Magnesium Total Bilirubin AST ALT Alkaline Phosphatase Total Protein Albumin Globulin Albumin/Globulin Ratio Coccidioides IgG Ab Impressions Impression: # Failure to thrive # Abnormal CT scan of the abdomen and pelvis GoLytely prep in place via the NGT ABG Interpretation ABG results: 03/30/24 04/01/24 04/01/24 13:55 10:25 17:20 ABG pH 7.48 H 7.52 H 7.47 H ABG pCO2 34 31 L 34 ABG pO2 300 H 155 H D 36 L* D ABG HCO3 25 25 25 ABG O2 Saturation 100 H 100 H 70 L ABG Base Excess 2 3 1 Assessment & Plan A&P Narrative # Abnormal CT scan of the abdomen pelvis showing thickening of the rectal wall and stool impaction in increased stool burden Plan GoLytely to clean the stool burden out Consider colonoscopy once patient is clear Clear liquid diet Will follow the patient Other medical problems include # Metabolic encephalopathy # ALOC # Hypoglycemia # Hypothermia # History of CVA with right-sided motor weakness # 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
[2024-04-01] MEDS: ACETAMINOPHEN 325 MG TABLET 650 MG PO (19:17)
[2024-04-01] MEDS: ASPIRIN 81 MG CHEW PO (19:17)
[2024-04-01 20:00] VITALS: BP 96/55; PULSE 80; PULSE 97; RESP 11; TEMP 36.1; O2SAT 94
[2024-04-01] MEDS: ATORVASTATIN CALCIUM 20 MG TABLET 80 MG PO (20:27)
--- NOTE | 2024-04-01 23:21 | PD.NEUROPROG ---
Documentation for date of: 04/01/24 Subjective Subjective Interval history: Patient was seen in telemetry at the bedside with her family. She is scheduled for colonoscopy today. Urine is high colored in the Phelps bag Exam - Neurology Vital Signs Temp Pulse Resp BP Pulse Ox O2 Del Method O2 Flow Rate 96.9 F 97 11 L 96/55 L 94 L Nasal Cannula 4 04/01/24 20:00 04/01/24 20:00 04/01/24 20:00 04/01/24 20:00 04/01/24 20:00 04/01/24 20:00 04/01/24 20:00 Narrative Exam GENERAL APPEARANCE: Well-developed, emaciated elderly female in no acute distress HEENT: Normocephalic, atraumatic, extraocular movements intact. Pupils: Equal reacting to light NECK: Supple, no JVD or bruits. CARDIOVASULAR: Heart: S1, S2 heard, regular without S3-S4 or murmur no rubs or gallops. LUNGS/CHEST: Clear to auscultation bilaterally. No rails, rhonchi, or wheezing. Normal inspection. ABDOMEN: Soft, nontender, with normal bowel sounds. No pulsatile masses. No rebound, rigidity, or guarding. Normal inspection and palpation. EXTREMITIES: Normal inspection and palpation. No edema, clubbing or cyanosis. SKIN: Warm and dry without rashes. Normal inspection. MUSCULOSKELETAL: No cervical, thoracic, lumbar or midline bony tenderness. Normal inspection. NEURO: Alert, awake and nonverbal. Brainstem function: Intact, rest of the exam limited no signs of meningeal irritation noted. PSYCHIATRIC: Limited Objective Labs 04/01/24 04:15 04/01/24 04:15 Labs: Laboratory Results - last 24 hr 03/30/24 04/01/24 04/01/24 20:06 04:15 10:25 WBC 9.2 D RBC 3.09 L Hgb 9.5 L Hct 28.1 L MCV 91 MCH 30.7 MCHC 33.8 RDW Std Deviation 47.3 H Plt Count 200 Neut % (Auto) 85 H Lymph % (Auto) 12 [place] % (Auto) 2 Eos % (Auto) 0 Baso % (Auto) 0 Neut # (Auto) 7.8 H Lymph # (Auto) 1.1 [place] # (Auto) 0.2 Eos # (Auto) 0.0 Baso # (Auto) 0.0 Immature Gran # (Auto) 0.06 H Absolute Nucleated RBC 0.00 Immature Gran % 1 H Nucleated RBC % 0 PT INR APTT Puncture Site Left Radial ABG pH 7.52 H ABG pCO2 31 L ABG pO2 155 H D ABG HCO3 25 ABG O2 Saturation 100 H ABG Base Excess 3 Oxygen Liter Flow 10 FiO2 Sodium 143 Potassium 2.9 L D Chloride 108 H Carbon Dioxide 25.2 Anion Gap 10 BUN 26 H Creatinine 0.5 L Estim Creat Clear Calc 56.5 L eGFR > 60 BUN/Creatinine Ratio 52 H Glucose 71 L D Calculated Osmolality 287 Calcium 8.3 Corrected Calcium 9.2 Phosphorus 2.1 L Magnesium 1.8 Total Bilirubin 0.4 AST 37 H ALT 28 Alkaline Phosphatase 120 H D Total Protein 5.4 L Albumin 2.9 L Globulin 2.5 Albumin/Globulin Ratio 1.2 Coccidioides IgG Ab Negative 04/01/24 04/01/24 17:20 17:24 WBC RBC Hgb Hct MCV MCH MCHC RDW Std Deviation Plt Count Neut % (Auto) Lymph % (Auto) [place] % (Auto) Eos % (Auto) Baso % (Auto) Neut # (Auto) Lymph # (Auto) [place] # (Auto) Eos # (Auto) Baso # (Auto) Immature Gran # (Auto) Absolute Nucleated RBC Immature Gran % Nucleated RBC % PT 11.8 INR 1.1 APTT 34.2 Puncture Site Left Radial ABG pH 7.47 H ABG pCO2 34 ABG pO2 36 L* D ABG HCO3 25 ABG O2 Saturation 70 L ABG Base Excess 1 Oxygen Liter Flow FiO2 21 Sodium Potassium Chloride Carbon Dioxide Anion Gap BUN Creatinine Estim Creat Clear Calc eGFR BUN/Creatinine Ratio Glucose Calculated Osmolality Calcium Corrected Calcium Phosphorus Magnesium Total Bilirubin AST ALT Alkaline Phosphatase Total Protein Albumin Globulin Albumin/Globulin Ratio Coccidioides IgG Ab ABG Interpretation ABG results: 03/30/24 04/01/24 04/01/24 13:55 10:25 17:20 ABG pH 7.48 H 7.52 H 7.47 H ABG pCO2 34 31 L 34 ABG pO2 300 H 155 H D 36 L* D ABG HCO3 25 25 25 ABG O2 Saturation 100 H 100 H 70 L ABG Base Excess 2 3 1 Assessment & Plan Assessment and plan (1) Altered mental status: Status: Acute Additional Assessment & Plan Additional Plan: 79 yo female with PMH of 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 Per daughter patient has been nonverbal since last stroke, however she was able to walk with a walker and eat by herself until aproximately 2 months ago where she started progressively declining, decreasing oral intake, less active. The day of admission around 3am patient was found by daughter unresponsive and called EMS. On arrival patient was found with GCS of 3 glucose measured was 13, she was given D10 and repeat BS was 96. ED course: On arrival Vitals significant for hypothermia 93.8, rest of vitals nl, Labs significant for hypoglycemia of 13 which after D10 was repeated and increased to 96. CXR showed some pneumonia. UA was negative. EKG is sinus rhythm, Head CT was negative for Negative for acute hemorrhage, mass effect or midline shift, Head/Neck CTA showed 90% plus stenosis right carotid bifurcation proximal right internal carotid artery, No cerebral large vessel arterial occlusions. Neurology was consulted due to encephalopathy. Currently patient's mentation is back to baseline, per daughter. #90%right stenosis internal carotid -Patient not candidate for endarterectomy -Recommend start dual antiplatelet after PEG tube placement -Continue atorvastatin #Acute metabolic encephalopathy, improving -Likely in the setting of hypoglycemia and sepsis -MRI brain confirmed no acute infarction, prominent moderate chronic white matter changes. -Echocardiogram:Negative bubble study. TTE is suboptimal to rule out PFO or ASD. Consider GLORIA if high clincial suspicion. Normal LV size. Moderate to severe LV systolic dysfunction with an EF of around 35 to 40%. Severe hypokinesis of the mid to apical septum, apical anterior and apical anterolateral segments and akinetic apex indicating possible LAD involvement versus Takotsubo syndrome. Difficult to comment on apical thrombus due to lack of definity. Normal RV size and function. Mild TR Moderate MAC. Mild MR Mild AV sclerosis without stenosis with mild AI.
[2024-04-02] VITALS (26 sets, daily range): BP systolic 71–107; BP diastolic 40–62; PULSE 54–93; RESP 3–23; TEMP 35.9–36.1; O2SAT 90–100; BMI 18.9
[2024-04-02] MEDS: SODIUM CHLORIDE 0.9% 1000 ML 1,000 ML 999 ML IV (04:14)
[2024-04-02] MEDS: SODIUM CHLORIDE 0.9% 1000 ML 1,000 ML 75 ML IV (05:03)
[2024-04-02 05:12] LABS: Basophils % (Auto) 0 % (0-2.5); Eosinophils % (Auto) 0 % (0-10); Hematocrit 25.6 % (36.0-46.0); Immature Granulocytes % (Auto) 1 % (0-0); Immature Granulocytes Auto 0.04 Thou/mm3 (0.00-0.00); Lymphocytes % (Auto) 14 % (10-50); Mean Corpuscular HGB Conc 34.4 g/dl (31.0-37.0); Mean Corpuscular Hemoglobin 31.1 pg (25.0-35.0); Mean Corpuscular Volume 91 fL (80-100); Monocytes # (Auto) 0.2 Thou/mm3 (0.0-0.8); Monocytes % (Auto) 3 % (0-12); Neutrophils # (Auto) 5.7 Thou/mm3 (1.8-7.7); Neutrophils % (Auto) 82 % (37-80); Nucleated Red Blood Cell % 0 /100 WBC (0); Platelet Count 166 Thou/mm3 (140-440); Red Blood Count 2.83 Miln/mm3 (4.00-5.20)
[2024-04-02 05:13] LABS: Hemoglobin 8.8 g/dL (12.0-16.0)
[2024-04-02] MEDS: metroNIDAZOLE/NS 500 MG IVPB 500 MG/100 ML BAG 200 MG IV ×3 (05:18→21:53)
[2024-04-02] MEDS: HEPARIN SOD INJ 5000 UNIT/ML VIAL SC (05:18)
[2024-04-02 05:46] LABS: Alanine Aminotransferase 25 U/L (10-49); Albumin, Serum 2.5 gm/dL (3.4-4.8); Albumin/Globulin Ratio 1.1 (1.2-2.2); Alkaline Phosphatase 105 U/L (46-116); Anion Gap 7 (7-16); Aspartate Amino Transferase 36 U/L (0-34); BUN/Creatinine Ratio 48 Ratio (12-20); Bilirubin,Total 0.4 mg/dL (0.3-1.2); Blood Urea Nitrogen 19 mg/dL (9-23); Calcium 7.5 mg/dL (8.3-10.6); Calcium (Corrected) 8.7 mg/dL (8.5-10.1); Carbon Dioxide 23.3 mMol/L (20.0-31.0); Chloride 110 mMol/L (98-107); Creatinine (Component) 0.4 mg/dL (0.6-1.3); Estimated Creatinine Clearance 70.6 mL/min (>60); Globulin 2.3 gm/dL (2.3-3.5); Glucose 76 mg/dL (74-106); Magnesium 2.3 mg/dL (1.6-2.6); Osmolality,Calculated 280 (275-295); Sodium 140 mMol/L (136-145); Total Protein 4.8 gm/dL (5.7-8.2); eGFR > 60 See Note
[2024-04-02 05:52] LABS: Potassium 2.4 mMol/L (3.4-5.1)
[2024-04-02] MEDS: POTASSIUM CHL 10 mEq IVPB 10 MEQ/100 ML BAG 100 MEQ IV ×4 (06:39→10:39)
[2024-04-02] MEDS: POTASSIUM CHLORIDE 10% 20 MEQ/15 ML UDC 40 MEQ GT (06:39)
--- NOTE | 2024-04-02 08:19 | PC.NURSE ---
BP 79/45 Dr. Manning notified
--- NOTE | 2024-04-02 08:48 | ESPR_ITS ---
Documentation for date of: 04/02/24 Subjective - Hospitalist Subjective Interval history: Patient is non-verbal. Hypotensive however lactate appears to be normal. Review of Systems Constitutional Comments: Unable to obtain secondary to mental status Exam Vital Signs Temp Pulse Resp BP Pulse Ox O2 Del Method O2 Flow Rate 96.9 F 71 15 79/45 L 99 Nasal Cannula 2 04/02/24 08:00 04/02/24 08:00 04/02/24 08:00 04/02/24 08:00 04/02/24 08:00 04/02/24 08:00 04/02/24 08:00 Narrative Physical Exam: General: Alert, open eyes however does not follow commands. HEENT: Normocephalic, atraumatic Cardiac: Regular rate and rhythm, no murmurs Lungs: Clear to auscultation with no wheezing or crackles Abdomen: Nondistended, nontender positive bowel sounds. No guarding or rebound tenderness. Neurology: Does not follow commands. spontanously moves her left side with 0/5 strength in the right upper and lower extremity. Skin: No rash or edema. Objective - Hospitalist Labs Diagram: 04/02/24 04:40 04/02/24 04:40 Labs: Laboratory Results - last 24 hr 03/30/24 04/01/24 04/01/24 20:06 10:25 17:20 WBC RBC Hgb Hct MCV MCH MCHC RDW Std Deviation Plt Count Neut % (Auto) Lymph % (Auto) [place] % (Auto) Eos % (Auto) Baso % (Auto) Neut # (Auto) Lymph # (Auto) [place] # (Auto) Eos # (Auto) Baso # (Auto) Immature Gran # (Auto) Absolute Nucleated RBC Immature Gran % Nucleated RBC % PT INR APTT Puncture Site Left Radial Left Radial ABG pH 7.52 H 7.47 H ABG pCO2 31 L 34 ABG pO2 155 H D 36 L* D ABG HCO3 25 25 ABG O2 Saturation 100 H 70 L ABG Base Excess 3 1 Oxygen Liter Flow 10 FiO2 21 Sodium Potassium Chloride Carbon Dioxide Anion Gap BUN Creatinine Estim Creat Clear Calc eGFR BUN/Creatinine Ratio Glucose Calculated Osmolality Calcium Corrected Calcium Phosphorus Magnesium Total Bilirubin AST ALT Alkaline Phosphatase Total Protein Albumin Globulin Albumin/Globulin Ratio Coccidioides IgG Ab Negative Urine Legionella Ag 04/01/24 04/02/24 17:24 04:40 WBC 7.0 RBC 2.83 L Hgb 8.8 L Hct 25.6 L MCV 91 MCH 31.1 MCHC 34.4 RDW Std Deviation 46.0 Plt Count 166 D Neut % (Auto) 82 H Lymph % (Auto) 14 [place] % (Auto) 3 Eos % (Auto) 0 Baso % (Auto) 0 Neut # (Auto) 5.7 Lymph # (Auto) 1.0 [place] # (Auto) 0.2 Eos # (Auto) 0.0 Baso # (Auto) 0.0 Immature Gran # (Auto) 0.04 H Absolute Nucleated RBC 0.00 Immature Gran % 1 H Nucleated RBC % 0 PT 11.8 INR 1.1 APTT 34.2 Puncture Site ABG pH ABG pCO2 ABG pO2 ABG HCO3 ABG O2 Saturation ABG Base Excess Oxygen Liter Flow FiO2 Sodium 140 Potassium 2.4 L* D Chloride 110 H Carbon Dioxide 23.3 Anion Gap 7 BUN 19 Creatinine 0.4 L Estim Creat Clear Calc 70.6 eGFR > 60 BUN/Creatinine Ratio 48 H Glucose 76 Calculated Osmolality 280 Calcium 7.5 L Corrected Calcium 8.7 Phosphorus 2.0 L Magnesium 2.3 Total Bilirubin 0.4 AST 36 H ALT 25 Alkaline Phosphatase 105 Total Protein 4.8 L Albumin 2.5 L Globulin 2.3 Albumin/Globulin Ratio 1.1 L Coccidioides IgG Ab Urine Legionella Ag Cancelled ABG Interpretation ABG results: 03/30/24 04/01/24 04/01/24 13:55 10:25 17:20 ABG pH 7.48 H 7.52 H 7.47 H ABG pCO2 34 31 L 34 ABG pO2 300 H 155 H D 36 L* D ABG HCO3 25 25 25 ABG O2 Saturation 100 H 100 H 70 L ABG Base Excess 2 3 1 Assessment & Plan Patient Synopsis 79-year-old female with multiple comorbidities including hypertension, hyperlipidemia, type 2 diabetes mellitus with subsequent ischemic CVA with right-sided residual deficits and aphasia who is nonverbal at baseline who brought in by family for altered mentation. Per daughter, patient was able to do activities of daily living 2 months ago including walking with her walker and feeding herself however in the past couple weeks she has been having altered mentation and then bedbound. In the ER, patient was noted to have a GCS of 3 with blood sugars of 13 subsequently received dextrose and subsequently mentation slightly improved and admitted for acute metabolic encephalopathy secondary to hypoglycemia. 1. Acute metabolic encephalopathy 2. Hyperglycemia ? Patient was able to do activities of daily living until 2 months ago however progressively declined over the past 2 weeks ? On admission, patient was noted to be hypoglycemic at 13 with GCS of 3 subsequently received dextrose with improvement in mentation and blood sugar ? Stroke alert was activated initial CT head with no acute intracranial abnormality and CTA noted 90% stenosis of the right carotid bifurcation and proximal right internal carotid artery no large vessel arterial occlusion ? MRI with no acute intracranial abnormality ? Patient appears to be at baseline with minimal responsiveness however able to protect her airway 3. Hypotension - Suspect dehydration and patient is s/p 2L - Continues to have systolic BP in the 80s however lactate is normal suggesting normal perfusion and patient is only 49kg - Continue to monitor closely 3. Non-ST elevation myocardial infarction ? Patient was noted to have an elevation in troponin with a peak at 1.033 however EKG with no ST or T wave changes ? Cardiology was consulted and patient is poor candidate for cardiac angiogram and recommended medical management for which we agree with ? Echocardiogram with EF 35-40% ? Continue Aspirin 81, Lipitor 80 mg daily 4. Acute decompensated systolic heart failure ? Echocardiogram with EF 35-40% and patient noted to have severe hypokinesis of the mid to apical septum indicating possible LAD involvement versus Takotsubo syndrome ? Appreciate cardiology input ? Patient blood pressure is borderline however patient is 40 kg ? Patient appears to be dehydrated for which we will give IV fluids and monitor closely 5. Ischemic CVA with right-sided residual deficit and global aphasia ? Neurology on board 6. Electrolyte derangement 7. Hypokalemia ? Continue to replace aggressively Failure to thrive with cachexia ? BMI of 17 ? Patient is pending PEG tube placement 8. Hypothyroidism ? Continue levothyroxine 9. Type 2 diabetes mellitus ? Continue insulin sliding scale with hypoglycemia protocol in place 10. Normocytic anemia ? Hemoglobin around 8?9 ? Continue to monitor closely 11. Right internal carotid stenosis - CTA noted 90% right stenosis internal carotid -Patient not candidate for endarterectomy per neurology -Recommend start dual antiplatelet after PEG tube placement -Continue atorvastatin Healthcare Maintenance: DVT prophylaxis: Bilateral SCDs, no chemical prophylaxis given anticipated surgery Diet: NG tube feeding however held for possible colonoscopy today Lines: PIV CODE STATUS: Full code Reason for hospitalization: Acute metabolic encephalopathy, electrolyte derangement with hypokalemia requiring IV electrolyte replacement and pending PEG tube placement Time Spent with Patient Time: Total time spent is greater than 50% in coordination of care (as documented) at patient's floor/unit and/or counseling patient: Time with patient: 25 - 35 minutes Reason for Continued Stay Reason for continued stay: further monitoring Quality Measures Quality Measures stroke Suspected type of Stroke: Unknown at this time Tenecteplase given: Reason(s) Tenecteplase not given: Outside the time window not given Rehab services: PT evaluation ordered VTE Prophylaxis: pharmaceutical Antithrombotic by day 2:: not indicated (describe) Statin ordered: >75 y/o moderate or high intensity dose Anticoagulation ordered for A-fib or flutter (current or hx): not indicated Advance care planning discussed with:: child
[2024-04-02] MEDS: MIDODRINE 5 MG TABLET NG ×3 (09:16→21:52)
[2024-04-02] MEDS: SODIUM CHLORIDE 0.9% 500 ML 500 ML 999 ML IV ×2 (09:18→14:26)
[2024-04-02] MEDS: SODIUM CHLORIDE 0.9% 1000 ML 1,000 ML 100 ML IV (09:20)
[2024-04-02 10:38] LABS: Lactate (Lactic Acid) 1.9 mMol/L (0.4-2.0)
[2024-04-02] MEDS: ASPIRIN 81 MG CHEW PO (10:40)
[2024-04-02] MEDS: cefTRIAXone 2 GM in SODIUM CHLORIDE 0.9% (P) 100 ML IV (10:42)
[2024-04-02] MEDS: AZITHROMYCIN INJ 500 MG in SODIUM CHLORIDE 0.9% 250 ML 250 ML 250 MG IV (10:42)
[2024-04-02] MEDS: FOLIC ACID INJ 1 MG/0.2 ML IVP (10:42)
[2024-04-02] MEDS: ZINC SULFATE 220 MG CAPSULE PO (10:43)
[2024-04-02] MEDS: PANTOPRAZOLE INJ 40 MG VIAL IVP (10:43)
[2024-04-02] MEDS: THIAMINE INJ 100 MG/ML VIAL 2 ML IVP (10:43)
[2024-04-02] MEDS: LEVOTHYROXINE INJ 100 mCg VIAL 50 MCG IV (10:43)
[2024-04-02 13:25] LABS: Albumin, Serum 2.3 gm/dL (3.4-4.8); Anion Gap 4 (7-16); BUN/Creatinine Ratio 35 Ratio (12-20); Blood Urea Nitrogen 14 mg/dL (9-23); Calcium (Corrected) 8.4 mg/dL (8.5-10.1); Carbon Dioxide 20.1 mMol/L (20.0-31.0); Chloride 113 mMol/L (98-107); Creatinine (Component) 0.4 mg/dL (0.6-1.3); Estimated Creatinine Clearance 70.6 mL/min (>60); Glucose 105 mg/dL (74-106); Osmolality,Calculated 274 (275-295); Phosphorous 1.6 mg/dL (2.4-5.1); Potassium 3.5 mMol/L (3.4-5.1); Sodium 137 mMol/L (136-145); eGFR > 60 See Note
[2024-04-02 14:18] LABS: Lactate (Lactic Acid) 1.4 mMol/L (0.4-2.0)
[2024-04-02 14:22] LABS: Basophils % (Auto) 0 % (0-2.5); Eosinophils % (Auto) 0 % (0-10); Hematocrit 26.6 % (36.0-46.0); Hemoglobin 9.1 g/dL (12.0-16.0); Immature Granulocytes % (Auto) 1 % (0-0); Immature Granulocytes Auto 0.04 Thou/mm3 (0.00-0.00); Lymphocytes # (Auto) 0.9 Thou/mm3 (1.0-4.8); Lymphocytes % (Auto) 14 % (10-50); Mean Corpuscular HGB Conc 34.2 g/dl (31.0-37.0); Mean Corpuscular Hemoglobin 31.1 pg (25.0-35.0); Mean Corpuscular Volume 91 fL (80-100); Monocytes # (Auto) 0.2 Thou/mm3 (0.0-0.8); Monocytes % (Auto) 3 % (0-12); Neutrophils # (Auto) 5.5 Thou/mm3 (1.8-7.7); Neutrophils % (Auto) 83 % (37-80); Nucleated Red Blood Cell % 0 /100 WBC (0); Platelet Count 173 Thou/mm3 (140-440); RDW Standard Deviation 46.4 fL (36.4-46.3); Red Blood Count 2.93 Miln/mm3 (4.00-5.20); White Blood Count 6.6 Thou/mm3 (3.6-11.0)
--- NOTE | 2024-04-02 16:04 | ESPR_ITS ---
Documentation for date of: 04/02/24 Subjective Subjective Interval history: Patient seen and examined at the bedside. No new complaints including any cardiac complaints. As detailed yesterday in the note plan is for aggressive medical management for her severe systolic congestive heart failure with a differential diagnosis of Takotsubo versus LAD involvement given her multiple comorbidities and the bedbound status with severe contractures and is not an appropriate candidate for cardiac catheterization as she will not be able to lie flat on the [employer] table. The procedure would only be futile considering the above and recommend primary team to discuss the goals of care and also address the CODE STATUS for the patient Patient had an MRI performed the did not show any acute infarcts in showed prominent moderate chronic white matter changes. Bolick encephalopathy mostly secondary to the hypoglycemia and sepsis as per the neurology. GI team following the patient and planning for PEG tube placement given her failure. Colonoscopy also planned by GI for CT scan abdominal pelvis showing thickening of the rectal wall as well as stool impaction increased stool burden. Patient also found to have 90% stenosis of the bifurcation of the right carotid artery which will be treated medically as she is not considered a candidate for carotid endarterectomy. Exam Vital Signs Temp Pulse Resp BP Pulse Ox O2 Del Method O2 Flow Rate 96.9 F 93 22 H 93/62 100 Nasal Cannula 2 04/02/24 12:00 04/02/24 14:26 04/02/24 12:00 04/02/24 14:26 04/02/24 12:00 04/02/24 12:00 04/02/24 12:00 Narrative Exam General:nonverbal, cachectic, temporal wasting, fragile, thin Eyes: able to trace Ears: No visible ear discharge Nose: No visible nasal discharge. Mouth/Throat: Dry mucous membranes,poor dentattion Neck: Neck supple, non-tender, no cervical lymphadenopathy. Lungs: Clear LEONEL to auscultation and percussion, No accessory muscle use. Cardio: Normal S1/S2, regular rhythm, no murmurs, no JVD Abdomen: Soft, non-tender, no palpable masses, peristalsis present, no guarding or rebound. Extremities: Symmetrical, contractures of LEONEL Wrist and LE, no peripheral edema , non-tender, peripheral pulses presents. Skin: No rashes, no lesions, warm to touch. Neuro: Could not be assessed due to patient's current condition, able to move all extremities Objective Labs 04/02/24 20:17 04/02/24 20:17 Labs: Laboratory Results - last 24 hr 04/01/24 04/01/24 04/02/24 17:20 17:24 04:40 WBC 7.0 RBC 2.83 L Hgb 8.8 L Hct 25.6 L MCV 91 MCH 31.1 MCHC 34.4 RDW Std Deviation 46.0 Plt Count 166 D Neut % (Auto) 82 H Lymph % (Auto) 14 [place] % (Auto) 3 Eos % (Auto) 0 Baso % (Auto) 0 Neut # (Auto) 5.7 Lymph # (Auto) 1.0 [place] # (Auto) 0.2 Eos # (Auto) 0.0 Baso # (Auto) 0.0 Immature Gran # (Auto) 0.04 H Absolute Nucleated RBC 0.00 Immature Gran % 1 H Nucleated RBC % 0 PT 11.8 INR 1.1 APTT 34.2 Puncture Site Left Radial ABG pH 7.47 H ABG pCO2 34 ABG pO2 36 L* D ABG HCO3 25 ABG O2 Saturation 70 L ABG Base Excess 1 FiO2 21 Sodium 140 Potassium 2.4 L* D Chloride 110 H Carbon Dioxide 23.3 Anion Gap 7 BUN 19 Creatinine 0.4 L Estim Creat Clear Calc 70.6 eGFR > 60 BUN/Creatinine Ratio 48 H Glucose 76 Calculated Osmolality 280 Lactic Acid Calcium 7.5 L Corrected Calcium 8.7 Phosphorus 2.0 L Magnesium 2.3 Total Bilirubin 0.4 AST 36 H ALT 25 Alkaline Phosphatase 105 Total Protein 4.8 L Albumin 2.5 L Globulin 2.3 Albumin/Globulin Ratio 1.1 L Urine Legionella Ag Cancelled 04/02/24 04/02/24 04/02/24 10:30 12:23 13:49 WBC 6.6 RBC 2.93 L Hgb 9.1 L Hct 26.6 L MCV 91 MCH 31.1 MCHC 34.2 RDW Std Deviation 46.4 H Plt Count 173 Neut % (Auto) 83 H Lymph % (Auto) 14 [place] % (Auto) 3 Eos % (Auto) 0 Baso % (Auto) 0 Neut # (Auto) 5.5 Lymph # (Auto) 0.9 L [place] # (Auto) 0.2 Eos # (Auto) 0.0 Baso # (Auto) 0.0 Immature Gran # (Auto) 0.04 H Absolute Nucleated RBC 0.00 Immature Gran % 1 H Nucleated RBC % 0 PT INR APTT Puncture Site ABG pH ABG pCO2 ABG pO2 ABG HCO3 ABG O2 Saturation ABG Base Excess FiO2 Sodium 137 Potassium 3.5 D Chloride 113 H Carbon Dioxide 20.1 Anion Gap 4 L BUN 14 Creatinine 0.4 L Estim Creat Clear Calc 70.6 eGFR > 60 BUN/Creatinine Ratio 35 H Glucose 105 Calculated Osmolality 274 L Lactic Acid 1.9 1.4 Calcium 7.0 L Corrected Calcium 8.4 L Phosphorus 1.6 L Magnesium Total Bilirubin AST ALT Alkaline Phosphatase Total Protein Albumin 2.3 L Globulin Albumin/Globulin Ratio Urine Legionella Ag ABG Interpretation ABG results: 03/30/24 04/01/24 04/01/24 13:55 10:25 17:20 ABG pH 7.48 H 7.52 H 7.47 H ABG pCO2 34 31 L 34 ABG pO2 300 H 155 H D 36 L* D ABG HCO3 25 25 25 ABG O2 Saturation 100 H 100 H 70 L ABG Base Excess 2 3 1 Assessment & Plan A&P Narrative 79-year-old female with past medical history of hypertension, hyperlipidemia, 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 1. Acute decompensated systolic heart failure (EF 35 to 40%) 2. NSTEMI 3. Essential hypertension ?Given patient's elevated troponins which peaked at 1.033 and down trended this is most likely NSTEMI type II likely demand ischemia ?Given patient is a poor candidate for heart catheterization at this time due to other comorbidities we will treat medically for now ?Patient's blood pressure has been under control during her hospital stay. ?Echo done on 03/31/2024 has had the following findings: Negative bubble study. TTE is suboptimal to rule out PFO or ASD. Consider GLORIA if high clincial suspicion. Normal LV size. Moderate to severe LV systolic dysfunction with an EF of around 35 to 40%.Severe hypokinesis of the mid to apical septum, apical anterior and apical anterolateral segments and akinetic apex indicating possible LAD involvement versus Takotsubo syndrome. Difficult to comment on apical thrombus due to lack of definity. Normal RV size and function. Mild TR Moderate MAC. Mild MR Mild AV sclerosis without stenosis with mild AI. ?Patient most likely has some underlying CAD, but given multiple comorbidities and current clinical status she is not a good candidate for heart catheterization and family is aware of this and are in agreement. Plan: ?Recommend to treat patient as NSTEMI ?No need to trend troponins ?Okay to start heparin drip if no contraindications as well as aspirin and high intensity statin ? Given patient's multiple comorbidities and history of decline in health would recommend primary care team to have goals of care discussions with patient's family. 4. Acute encephalopathy 5. Hypoglycemia 6. DM2 ?Patient has been taking glyburide 5 mg as well as metformin 625 mg 3 times daily which could have precipitated his patient hypoglycemia in the event that she has been having poor oral intake. ? Continue current management as per primary care team 7. Failure to thrive ?Patient may benefit from PEG tube placement as she has been having poor oral intake for the past few weeks. ? Recommend to follow GI recommendations ? Continue current management as per primary care team 8. CVA with residual right-sided deficits 9. Hyperlipidemia ? Continue current management as primary care team Cardiology was consulted because of the abnormal echocardiogram which showed moderate to severe LV dysfunction with an EF of around 35 to 40%. Severe hypokinesis of the mid to apical septum, apical anterior and apical anterolateral segments as well as secondary to Indicating possible LAD involvement versus Takotsubo syndrome. RV size and function was normal and it showed mild valvular abnormalities. During my examination patient did not appear to be any fluid overload and patient is nonverbal bedbound and has severe contractures of all extremities and unable to provide any kind of history. VS per the daughter as well as the granddaughter were at the bedside patient has been like this for the past few months that she has not been able to eat and she is actually being taken for a PEG tube placement today and because of her poor nutrition patient appears cachectic. Explained to the family in the detail about a possible syndrome and the possible LAD disease given echocardiogram findings but as per the family she never complained of any chest pain or chest pressure as she does show in the sign language whenever something hurts her. Explained to the family that it would be futile to pursue the further workup of her new onset severe systolic congestive heart failure. The regional wall motion abnormalities involving the LAD territory as it could be well Takotsubo syndrome given her recent hospitalization. Patient is not an ideal candidate for any kind of cardiac catheterization as she cannot straighten any of her extremities because of the significant cramps factors. Also patient is bedbound, nonverbal with multiple comorbidities as mentioned above and recommend only medical treatment for now. Recommend aggressive medical treatment with goal-directed medical therapy with beta-devon, Entresto as well as spironolactone based on the blood pressure as well as the kidney function. If patient can tolerate patient should be on aspirin as well as statin high intensity. Check lipid profile TSH as well as A1c. Patient does not appear to be fluid overloaded and does not need diuretics at the present point of time. Patient actually is not eating because of dysphagia and plan for PEG tube for now. Also recommend primary team to discuss the goals of care for the patient in detail for the patient. 04/02/2024: No new complaints including any cardiac complaints. As detailed yesterday in the note plan is for aggressive medical management for her severe systolic congestive heart failure with a differential diagnosis of Takotsubo versus LAD involvement given her multiple comorbidities and the bedbound status with severe contractures and is not an appropriate candidate for cardiac catheterization as she will not be able to lie flat on the [employer] table. The procedure would only be futile considering the above and recommend primary team to discuss the goals of care and also address the CODE STATUS for the patient Patient had an MRI performed the did not show any acute infarcts in showed prominent moderate chronic white matter changes. Bolick encephalopathy mostly secondary to the hypoglycemia and sepsis as per the neurology. GI team following the patient and planning for PEG tube placement given her failure. Colonoscopy also planned by GI for CT scan abdominal pelvis showing thickening of the rectal wall as well as stool impaction increased stool burden. Patient also found to have 90% stenosis of the bifurcation of the right carotid artery which will be treated medically as she is not considered a candidate for carotid endarterectomy. Management of rest of the medical conditions as per primary team and other consultants. Thank you for the consult and allowing me to participate in the care of the patient. Cardiology will continue to follow. Rao Dodson M.D. Interventional Cardiology Time Spent With Patient Time: Total time spent is greater than 50% in coordination of care (as documented) at patient's floor/unit and/or counseling patient:
--- NOTE | 2024-04-02 17:00 | PC.NURSE ---
Maintenance fluids going at 75 ml/hr, notified of BP low, bolus of 500 ordered. Bolus given using maintenance bag that was already hanging and then rate increased to 100 ml/hr after. Due to bolus coming from maintenance bag a new bag was hung due to 500 ml used towards the bolus. Only 500/1000 of the new bag hung given to complete maintenance fluids.
--- NOTE | 2024-04-02 18:22 | PC.NURSE ---
Dr. Manning ordered to hold golytely until bp managed, tried to call Dr. Hinojosa but unable to reach. Pt continuing clear liquid diet.
--- NOTE | 2024-04-02 20:11 | PD.EVENT ---
Documentation for date of: 04/02/24 Event Note Event Note: The patient had a rapid response called in the afternoon due to hypotension. Per the nurse, she received 2 L of IV bolus and midodrine. Another rapid response was called now with a blood pressure of 75/44 mmHg. She received an additional 1 L IV bolus, but her blood pressure remains low (80/41). This is the third rapid response within 24 hours. The patient's ejection fraction is only 35?40%. I will upgrade her to the ICU for vasopressor support.
--- NOTE | 2024-04-02 20:21 | PD.IMPROG ---
Documentation for date of: 04/02/24 Subjective Subjective Interval history: GoLytely stopped as the patient became hypotensive She also had a rapid response I will altogether cancel the colonoscopy at the moment Exam Vital Signs Temp Pulse Resp BP Pulse Ox O2 Del Method O2 Flow Rate 96.9 F 58 L 17 95/51 L 100 Nasal Cannula 2 04/02/24 16:00 04/02/24 16:00 04/02/24 16:00 04/02/24 16:00 04/02/24 16:00 04/02/24 16:00 04/02/24 16:00 Objective Labs 04/02/24 13:49 04/02/24 12:23 Labs: Laboratory Results - last 24 hr 04/02/24 04/02/24 04/02/24 04:40 10:30 12:23 WBC 7.0 RBC 2.83 L Hgb 8.8 L Hct 25.6 L MCV 91 MCH 31.1 MCHC 34.4 RDW Std Deviation 46.0 Plt Count 166 D Neut % (Auto) 82 H Lymph % (Auto) 14 [place] % (Auto) 3 Eos % (Auto) 0 Baso % (Auto) 0 Neut # (Auto) 5.7 Lymph # (Auto) 1.0 [place] # (Auto) 0.2 Eos # (Auto) 0.0 Baso # (Auto) 0.0 Immature Gran # (Auto) 0.04 H Absolute Nucleated RBC 0.00 Immature Gran % 1 H Nucleated RBC % 0 Sodium 140 137 Potassium 2.4 L* D 3.5 D Chloride 110 H 113 H Carbon Dioxide 23.3 20.1 Anion Gap 7 4 L BUN 19 14 Creatinine 0.4 L 0.4 L Estim Creat Clear Calc 70.6 70.6 eGFR > 60 > 60 BUN/Creatinine Ratio 48 H 35 H Glucose 76 105 Calculated Osmolality 280 274 L Lactic Acid 1.9 Calcium 7.5 L 7.0 L Corrected Calcium 8.7 8.4 L Phosphorus 2.0 L 1.6 L Magnesium 2.3 Total Bilirubin 0.4 AST 36 H ALT 25 Alkaline Phosphatase 105 Total Protein 4.8 L Albumin 2.5 L 2.3 L Globulin 2.3 Albumin/Globulin Ratio 1.1 L Urine Legionella Ag Cancelled 04/02/24 13:49 WBC 6.6 RBC 2.93 L Hgb 9.1 L Hct 26.6 L MCV 91 MCH 31.1 MCHC 34.2 RDW Std Deviation 46.4 H Plt Count 173 Neut % (Auto) 83 H Lymph % (Auto) 14 [place] % (Auto) 3 Eos % (Auto) 0 Baso % (Auto) 0 Neut # (Auto) 5.5 Lymph # (Auto) 0.9 L [place] # (Auto) 0.2 Eos # (Auto) 0.0 Baso # (Auto) 0.0 Immature Gran # (Auto) 0.04 H Absolute Nucleated RBC 0.00 Immature Gran % 1 H Nucleated RBC % 0 Sodium Potassium Chloride Carbon Dioxide Anion Gap BUN Creatinine Estim Creat Clear Calc eGFR BUN/Creatinine Ratio Glucose Calculated Osmolality Lactic Acid 1.4 Calcium Corrected Calcium Phosphorus Magnesium Total Bilirubin AST ALT Alkaline Phosphatase Total Protein Albumin Globulin Albumin/Globulin Ratio Urine Legionella Ag Impressions Impression: # Failure to thrive # Abnormal CAT scan of the abdomen and pelvis Discontinue GoLytely prep Cancel colonoscopy diet as tolerated ABG Interpretation ABG results: 03/30/24 04/01/24 04/01/24 13:55 10:25 17:20 ABG pH 7.48 H 7.52 H 7.47 H ABG pCO2 34 31 L 34 ABG pO2 300 H 155 H D 36 L* D ABG HCO3 25 25 25 ABG O2 Saturation 100 H 100 H 70 L ABG Base Excess 2 3 1 Assessment & Plan A&P Narrative 79-year-old female with past medical history of hypertension, hyperlipidemia, 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 1. Acute decompensated systolic heart failure (EF 35 to 40%) 2. NSTEMI 3. Essential hypertension ?Given patient's elevated troponins which peaked at 1.033 and down trended this is most likely NSTEMI type II likely demand ischemia ?Given patient is a poor candidate for heart catheterization at this time due to other comorbidities we will treat medically for now ?Patient's blood pressure has been under control during her hospital stay. ?Echo done on 03/31/2024 has had the following findings: Negative bubble study. TTE is suboptimal to rule out PFO or ASD. Consider GLORIA if high clincial suspicion. Normal LV size. Moderate to severe LV systolic dysfunction with an EF of around 35 to 40%.Severe hypokinesis of the mid to apical septum, apical anterior and apical anterolateral segments and akinetic apex indicating possible LAD involvement versus Takotsubo syndrome. Difficult to comment on apical thrombus due to lack of definity. Normal RV size and function. Mild TR Moderate MAC. Mild MR Mild AV sclerosis without stenosis with mild AI. ?Patient most likely has some underlying CAD, but given multiple comorbidities and current clinical status she is not a good candidate for heart catheterization and family is aware of this and are in agreement. Plan: ?Recommend to treat patient as NSTEMI ?No need to trend troponins ?Okay to start heparin drip if no contraindications as well as aspirin and high intensity statin ? Given patient's multiple comorbidities and history of decline in health would recommend primary care team to have goals of care discussions with patient's family. 4. Acute encephalopathy 5. Hypoglycemia 6. DM2 ?Patient has been taking glyburide 5 mg as well as metformin 625 mg 3 times daily which could have precipitated his patient hypoglycemia in the event that she has been having poor oral intake. ? Continue current management as per primary care team 7. Failure to thrive ?Patient may benefit from PEG tube placement as she has been having poor oral intake for the past few weeks. ? Recommend to follow GI recommendations ? Continue current management as per primary care team 8. CVA with residual right-sided deficits 9. Hyperlipidemia ? Continue current management as primary care team Cardiology was consulted because of the abnormal echocardiogram which showed moderate to severe LV dysfunction with an EF of around 35 to 40%. Severe hypokinesis of the mid to apical septum, apical anterior and apical anterolateral segments as well as secondary to Indicating possible LAD involvement versus Takotsubo syndrome. RV size and function was normal and it showed mild valvular abnormalities. During my examination patient did not appear to be any fluid overload and patient is nonverbal bedbound and has severe contractures of all extremities and unable to provide any kind of history. VS per the daughter as well as the granddaughter were at the bedside patient has been like this for the past few months that she has not been able to eat and she is actually being taken for a PEG tube placement today and because of her poor nutrition patient appears cachectic. Explained to the family in the detail about a possible syndrome and the possible LAD disease given echocardiogram findings but as per the family she never complained of any chest pain or chest pressure as she does show in the sign language whenever something hurts her. Explained to the family that it would be futile to pursue the further workup of her new onset severe systolic congestive heart failure. The regional wall motion abnormalities involving the LAD territory as it could be well Takotsubo syndrome given her recent hospitalization. Patient is not an ideal candidate for any kind of cardiac catheterization as she cannot straighten any of her extremities because of the significant cramps factors. Also patient is bedbound, nonverbal with multiple comorbidities as mentioned above and recommend only medical treatment for now. Recommend aggressive medical treatment with goal-directed medical therapy with beta-devon, Entresto as well as spironolactone based on the blood pressure as well as the kidney function. If patient can tolerate patient should be on aspirin as well as statin high intensity. Check lipid profile TSH as well as A1c. Patient does not appear to be fluid overloaded and does not need diuretics at the present point of time. Patient actually is not eating because of dysphagia and plan for PEG tube for now. Also recommend primary team to discuss the goals of care for the patient in detail for the patient. Management of rest of the medical conditions as per primary team and other consultants. Thank you for the consult and allowing me to participate in the care of the patient. Cardiology will continue to follow. Rao Dodson M.D. Interventional Cardiology Time Spent With Patient Time: Total time spent is greater than 50% in coordination of care (as documented) at patient's floor/unit and/or counseling patient:
[2024-04-02 20:43] LABS: Lactate (Lactic Acid) 1.4 mMol/L (0.4-2.0)
[2024-04-02 20:46] LABS: Basophils % (Auto) 0 % (0-2.5); Eosinophils % (Auto) 0 % (0-10); Hematocrit 26.8 % (36.0-46.0); Hemoglobin 9.1 g/dL (12.0-16.0); Immature Granulocytes % (Auto) 1 % (0-0); Immature Granulocytes Auto 0.03 Thou/mm3 (0.00-0.00); Lymphocytes % (Auto) 16 % (10-50); Mean Corpuscular Hemoglobin 31.2 pg (25.0-35.0); Mean Corpuscular Volume 92 fL (80-100); Monocytes # (Auto) 0.2 Thou/mm3 (0.0-0.8); Monocytes % (Auto) 3 % (0-12); Neutrophils % (Auto) 81 % (37-80); Nucleated Red Blood Cell % 0 /100 WBC (0); Platelet Count 156 Thou/mm3 (140-440); RDW Standard Deviation 47.8 fL (36.4-46.3); Red Blood Count 2.92 Miln/mm3 (4.00-5.20); White Blood Count 6.2 Thou/mm3 (3.6-11.0)
[2024-04-02] MEDS: Norepinephrine/D5W 8mg/250ml 8 MG/250 ML BAG 3.836 MG IV (21:00)
--- NOTE | 2024-04-02 21:08 | PC.NURSE ---
Patient transferred to ICU. Report given to CRYSTAL Hill
--- NOTE | 2024-04-02 21:13 | PC.NURSE ---
Per Dr. Hinojosa he will D/c golytely and postpone endoscopy due to patients hypotensive status.
[2024-04-02 21:14] LABS: Alanine Aminotransferase 27 U/L (10-49); Albumin, Serum 2.4 gm/dL (3.4-4.8); Albumin/Globulin Ratio 1.1 (1.2-2.2); Alkaline Phosphatase 118 U/L (46-116); Anion Gap 5 (7-16); Aspartate Amino Transferase 47 U/L (0-34); BUN/Creatinine Ratio 38 Ratio (12-20); Bilirubin,Total 0.2 mg/dL (0.3-1.2); Blood Urea Nitrogen 15 mg/dL (9-23); Calcium 7.1 mg/dL (8.3-10.6); Calcium (Corrected) 8.4 mg/dL (8.5-10.1); Carbon Dioxide 23.7 mMol/L (20.0-31.0); Chloride 112 mMol/L (98-107); Creatinine (Component) 0.4 mg/dL (0.6-1.3); Estimated Creatinine Clearance 70.6 mL/min (>60); Globulin 2.2 gm/dL (2.3-3.5); Glucose 101 mg/dL (74-106); Magnesium 1.9 mg/dL (1.6-2.6); Osmolality,Calculated 282 (275-295); Phosphorous 1.5 mg/dL (2.4-5.1); Potassium 3.4 mMol/L (3.4-5.1); Procalcitonin 0.21 ng/ml (0.0-0.49); Sodium 141 mMol/L (136-145); Total Protein 4.6 gm/dL (5.7-8.2); eGFR > 60 See Note
[2024-04-02] MEDS: ATORVASTATIN CALCIUM 20 MG TABLET 80 MG PO (21:52)
[2024-04-02] MEDS: POT PHOS 15 mMol in NS 250 ML 15 MMOL/250 ML BAG 62.5 MMOL IV (22:30)
--- NOTE | 2024-04-02 23:31 | PD.NEUROPROG ---
Documentation for date of: 04/02/24 Subjective Subjective Interval history: Patient was seen in telemetry at the bedside with her family. She was scheduled for colonoscopy, but could not be done as she was very hypotensive. Exam - Neurology Vital Signs Temp Pulse Resp BP Pulse Ox O2 Del Method O2 Flow Rate 96.6 F L 61 7 L 90/50 L 100 Nasal Cannula 2 04/02/24 21:15 04/02/24 21:52 04/02/24 21:30 04/02/24 21:52 04/02/24 21:30 04/02/24 20:00 04/02/24 20:00 Narrative Exam GENERAL APPEARANCE: Well-developed, emaciated elderly female in no acute distress HEENT: Normocephalic, atraumatic, extraocular movements intact. Pupils: Equal reacting to light NECK: Supple, no JVD or bruits. CARDIOVASULAR: Heart: S1, S2 heard, regular without S3-S4 or murmur no rubs or gallops. LUNGS/CHEST: Clear to auscultation bilaterally. No rails, rhonchi, or wheezing. Normal inspection. ABDOMEN: Soft, nontender, with normal bowel sounds. No pulsatile masses. No rebound, rigidity, or guarding. Normal inspection and palpation. EXTREMITIES: Normal inspection and palpation. No edema, clubbing or cyanosis. SKIN: Warm and dry without rashes. Normal inspection. MUSCULOSKELETAL: No cervical, thoracic, lumbar or midline bony tenderness. Normal inspection. NEURO: Alert, awake and nonverbal. Brainstem function: Intact, rest of the exam limited no signs of meningeal irritation noted. PSYCHIATRIC: Limited Objective Labs 04/02/24 20:17 04/02/24 20:17 Labs: Laboratory Results - last 24 hr 04/02/24 04/02/24 04/02/24 04:40 10:30 12:23 WBC 7.0 RBC 2.83 L Hgb 8.8 L Hct 25.6 L MCV 91 MCH 31.1 MCHC 34.4 RDW Std Deviation 46.0 Plt Count 166 D Neut % (Auto) 82 H Lymph % (Auto) 14 [place] % (Auto) 3 Eos % (Auto) 0 Baso % (Auto) 0 Neut # (Auto) 5.7 Lymph # (Auto) 1.0 [place] # (Auto) 0.2 Eos # (Auto) 0.0 Baso # (Auto) 0.0 Immature Gran # (Auto) 0.04 H Absolute Nucleated RBC 0.00 Immature Gran % 1 H Nucleated RBC % 0 Sodium 140 137 Potassium 2.4 L* D 3.5 D Chloride 110 H 113 H Carbon Dioxide 23.3 20.1 Anion Gap 7 4 L BUN 19 14 Creatinine 0.4 L 0.4 L Estim Creat Clear Calc 70.6 70.6 eGFR > 60 > 60 BUN/Creatinine Ratio 48 H 35 H Glucose 76 105 Calculated Osmolality 280 274 L Lactic Acid 1.9 Calcium 7.5 L 7.0 L Corrected Calcium 8.7 8.4 L Phosphorus 2.0 L 1.6 L Magnesium 2.3 Total Bilirubin 0.4 AST 36 H ALT 25 Alkaline Phosphatase 105 Total Protein 4.8 L Albumin 2.5 L 2.3 L Globulin 2.3 Albumin/Globulin Ratio 1.1 L Procalcitonin Urine Legionella Ag Cancelled 04/02/24 04/02/24 13:49 20:17 WBC 6.6 6.2 RBC 2.93 L 2.92 L Hgb 9.1 L 9.1 L Hct 26.6 L 26.8 L MCV 91 92 MCH 31.1 31.2 MCHC 34.2 34.0 RDW Std Deviation 46.4 H 47.8 H Plt Count 173 156 Neut % (Auto) 83 H 81 H Lymph % (Auto) 14 16 [place] % (Auto) 3 3 Eos % (Auto) 0 0 Baso % (Auto) 0 0 Neut # (Auto) 5.5 5.0 Lymph # (Auto) 0.9 L 1.0 [place] # (Auto) 0.2 0.2 Eos # (Auto) 0.0 0.0 Baso # (Auto) 0.0 0.0 Immature Gran # (Auto) 0.04 H 0.03 H Absolute Nucleated RBC 0.00 0.00 Immature Gran % 1 H 1 H Nucleated RBC % 0 0 Sodium 141 Potassium 3.4 Chloride 112 H Carbon Dioxide 23.7 Anion Gap 5 L BUN 15 Creatinine 0.4 L Estim Creat Clear Calc 70.6 eGFR > 60 BUN/Creatinine Ratio 38 H Glucose 101 Calculated Osmolality 282 Lactic Acid 1.4 1.4 Calcium 7.1 L Corrected Calcium 8.4 L Phosphorus 1.5 L Magnesium 1.9 Total Bilirubin 0.2 L AST 47 H ALT 27 Alkaline Phosphatase 118 H Total Protein 4.6 L Albumin 2.4 L Globulin 2.2 L Albumin/Globulin Ratio 1.1 L Procalcitonin 0.21 Urine Legionella Ag ABG Interpretation ABG results: 03/30/24 04/01/24 04/01/24 13:55 10:25 17:20 ABG pH 7.48 H 7.52 H 7.47 H ABG pCO2 34 31 L 34 ABG pO2 300 H 155 H D 36 L* D ABG HCO3 25 25 25 ABG O2 Saturation 100 H 100 H 70 L ABG Base Excess 2 3 1 Assessment & Plan Assessment and plan (1) Altered mental status: Status: Acute Additional Assessment & Plan Additional Plan: 79 yo female with PMH of 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 Per daughter patient has been nonverbal since last stroke, however she was able to walk with a walker and eat by herself until aproximately 2 months ago where she started progressively declining, decreasing oral intake, less active. The day of admission around 3am patient was found by daughter unresponsive and called EMS. On arrival patient was found with GCS of 3 glucose measured was 13, she was given D10 and repeat BS was 96. ED course: On arrival Vitals significant for hypothermia 93.8, rest of vitals nl, Labs significant for hypoglycemia of 13 which after D10 was repeated and increased to 96. CXR showed some pneumonia. UA was negative. EKG is sinus rhythm, Head CT was negative for Negative for acute hemorrhage, mass effect or midline shift, Head/Neck CTA showed 90% plus stenosis right carotid bifurcation proximal right internal carotid artery, No cerebral large vessel arterial occlusions. Neurology was consulted due to encephalopathy. Currently patient's mentation is back to baseline, per daughter. #90%right stenosis internal carotid -Patient not candidate for endarterectomy -Recommend start dual antiplatelet after PEG tube placement -Continue atorvastatin #Acute metabolic encephalopathy, improving -Likely in the setting of hypoglycemia and sepsis -MRI brain confirmed no acute infarction, prominent moderate chronic white matter changes. -Echocardiogram:Negative bubble study. TTE is suboptimal to rule out PFO or ASD. Consider GLORIA if high clincial suspicion. Normal LV size. Moderate to severe LV systolic dysfunction with an EF of around 35 to 40%. Severe hypokinesis of the mid to apical septum, apical anterior and apical anterolateral segments and akinetic apex indicating possible LAD involvement versus Takotsubo syndrome. Difficult to comment on apical thrombus due to lack of definity. Normal RV size and function. Mild TR Moderate MAC. Mild MR Mild AV sclerosis without stenosis with mild AI. Patient is waiting for colonoscopy followed by PEG tube placement if her blood pressure stabilizes
[2024-04-03] VITALS (111 sets, daily range): BP systolic 68–127; BP diastolic 34–70; PULSE 36–189; RESP 0–22; TEMP 36.2–36.6; O2SAT 86–100
[2024-04-03] MEDS: MIDODRINE 5 MG TABLET NG (05:42)
[2024-04-03] MEDS: metroNIDAZOLE/NS 500 MG IVPB 500 MG/100 ML BAG 200 MG IV ×3 (05:43→21:06)
[2024-04-03 07:33] LABS: Basophils % (Auto) 0 % (0-2.5); Eosinophils % (Auto) 0 % (0-10); Hemoglobin 10.2 g/dL (12.0-16.0); Immature Granulocytes % (Auto) 1 % (0-0); Immature Granulocytes Auto 0.04 Thou/mm3 (0.00-0.00); Lymphocytes # (Auto) 0.8 Thou/mm3 (1.0-4.8); Lymphocytes % (Auto) 10 % (10-50); Mean Corpuscular Hemoglobin 30.9 pg (25.0-35.0); Mean Corpuscular Volume 91 fL (80-100); Monocytes # (Auto) 0.2 Thou/mm3 (0.0-0.8); Monocytes % (Auto) 2 % (0-12); Neutrophils # (Auto) 6.7 Thou/mm3 (1.8-7.7); Neutrophils % (Auto) 87 % (37-80); Nucleated Red Blood Cell % 0 /100 WBC (0); Platelet Count 218 Thou/mm3 (140-440); RDW Standard Deviation 47.7 fL (36.4-46.3); White Blood Count 7.8 Thou/mm3 (3.6-11.0)
[2024-04-03 07:36] LABS: Alanine Aminotransferase 24 U/L (10-49); Albumin, Serum 2.5 gm/dL (3.4-4.8); Alkaline Phosphatase 133 U/L (46-116); Anion Gap 6 (7-16); Aspartate Amino Transferase 40 U/L (0-34); BUN/Creatinine Ratio 35 Ratio (12-20); Bilirubin,Total 0.3 mg/dL (0.3-1.2); Blood Urea Nitrogen 14 mg/dL (9-23); Calcium 7.1 mg/dL (8.3-10.6); Calcium (Corrected) 8.3 mg/dL (8.5-10.1); Chloride 113 mMol/L (98-107); Creatinine (Component) 0.4 mg/dL (0.6-1.3); Estimated Creatinine Clearance 78.2 mL/min (>60); Globulin 2.4 gm/dL (2.3-3.5); Glucose 85 mg/dL (74-106); Magnesium 1.8 mg/dL (1.6-2.6); Osmolality,Calculated 277 (275-295); Phosphorous 2.3 mg/dL (2.4-5.1); Potassium 3.4 mMol/L (3.4-5.1); Sodium 139 mMol/L (136-145); Total Protein 4.9 gm/dL (5.7-8.2); eGFR > 60 See Note
[2024-04-03 08:29] LABS: Prothrombin Time 12.2 Seconds (9.0-12.2)
[2024-04-03 08:30] LABS: INR 1.1 (0.9-1.3)
--- NOTE | 2024-04-03 08:33 | PC.PT ---
Will cancel PT evaluation order due to patient is transferred to ICU.
[2024-04-03] MEDS: POTASSIUM CHLORIDE 10% 20 MEQ/15 ML UDC 40 MEQ GT (08:56)
[2024-04-03] MEDS: ALBUMIN HUMAN 25% IVPB 12.5 GM/50 ML BTL IV (08:57)
[2024-04-03] MEDS: ASPIRIN 81 MG CHEW PO (09:01)
[2024-04-03] MEDS: ZINC SULFATE 220 MG CAPSULE PO (09:01)
[2024-04-03] MEDS: PANTOPRAZOLE INJ 40 MG VIAL IVP (09:01)
[2024-04-03] MEDS: LEVOTHYROXINE INJ 100 mCg VIAL 50 MCG IV (09:02)
[2024-04-03] MEDS: THIAMINE INJ 100 MG/ML VIAL 2 ML IVP (09:04)
[2024-04-03] MEDS: FOLIC ACID INJ 1 MG/0.2 ML IVP (09:05)
--- NOTE | 2024-04-03 09:18 | PC.NURSE ---
MD Aware, pt went sinus erin as low as 43 BPM.
--- NOTE | 2024-04-03 09:30 | XR_ITS ---
Examination: AP chest single view Technique: Examination: AP chest single view Technique: AP portable semiupright chest single view Exam date and time: April 03, 2024 0944 hrs. Comparison April 01, 2024 Indications: Coughing congestion this week Findings: Worsening diffuse significant bilateral pneumonia Normal heart size Mild vascular congestion The orogastric tube is coiled in the stomach Impression: Worsening diffuse significant bilateral pneumonia
[2024-04-03] MEDS: CALCIUM CARBONATE 600 MG TABLET NG (09:54)
[2024-04-03] MEDS: cefTRIAXone 2 GM in SODIUM CHLORIDE 0.9% (P) 100 ML IV (09:54)
[2024-04-03] MEDS: MIDODRINE 5 MG TABLET 10 MG NG ×3 (09:54→21:05)
--- NOTE | 2024-04-03 10:06 | PD.RESPRO ---
Documentation for date of: 04/03/24 Subjective Subjective Interval history: Patient was seen and examined at bedside this morning. Patient was transferred to the ICU overnight due to hypotension requiring pressors. Patient is currently on norepinephrine at 3.836 mL/h as well as midodrine 5 mg 3 times daily Patient's clinical status remains clinically unchanged. Potassium 3.4 and magnesium 1.8 today, recommend to replete potassium magnesium to keep above 4 and 2 respectively to avoid any further arrhythmias. Would recommend ICU team to speak with family to discuss goals of care. Will continue to treat patient medically as she is not a good candidate for cardiac catheterization given her contractures. Spoke with daughter at bedside about patient's code status and explained that being FULL CODE would likely put the patient through more hardship and could be more damaging than beneficial. Colonoscopy was planned by GI yesterday, but due to hypotension it was canceled. Exam Vital Signs Temp Pulse Resp BP Pulse Ox O2 Del Method O2 Flow Rate 97.6 F 65 22 H 87/54 L 95 Nasal Cannula 2 04/03/24 07:00 04/03/24 09:54 04/03/24 09:15 04/03/24 09:54 04/03/24 09:15 04/02/24 20:00 04/03/24 07:27 Narrative Exam General:nonverbal, cachectic, temporal wasting, fragile, thin Eyes: able to trace Ears: No visible ear discharge Nose: No visible nasal discharge. Mouth/Throat: Dry mucous membranes,poor dentattion Neck: Neck supple, non-tender, no cervical lymphadenopathy. Lungs: Clear LEONEL to auscultation and percussion, No accessory muscle use. Cardio: Normal S1/S2, regular rhythm, no murmurs, no JVD Abdomen: Soft, non-tender, no palpable masses, peristalsis present, no guarding or rebound. Extremities: Symmetrical, contractures of LEONEL Wrist and LE, no peripheral edema , non-tender, peripheral pulses presents. Skin: No rashes, no lesions, warm to touch. Neuro: Could not be assessed due to patient's current condition, able to move all extremities Objective Labs 04/03/24 05:25 04/03/24 13:46 Labs: Laboratory Results - last 24 hr 04/02/24 04/02/24 04/02/24 10:30 12:23 13:49 WBC 6.6 RBC 2.93 L Hgb 9.1 L Hct 26.6 L MCV 91 MCH 31.1 MCHC 34.2 RDW Std Deviation 46.4 H Plt Count 173 Neut % (Auto) 83 H Lymph % (Auto) 14 [place] % (Auto) 3 Eos % (Auto) 0 Baso % (Auto) 0 Neut # (Auto) 5.5 Lymph # (Auto) 0.9 L [place] # (Auto) 0.2 Eos # (Auto) 0.0 Baso # (Auto) 0.0 Immature Gran # (Auto) 0.04 H Absolute Nucleated RBC 0.00 Immature Gran % 1 H Nucleated RBC % 0 PT INR APTT Sodium 137 Potassium 3.5 D Chloride 113 H Carbon Dioxide 20.1 Anion Gap 4 L BUN 14 Creatinine 0.4 L Estim Creat Clear Calc 70.6 eGFR > 60 BUN/Creatinine Ratio 35 H Glucose 105 Calculated Osmolality 274 L Lactic Acid 1.9 1.4 Calcium 7.0 L Corrected Calcium 8.4 L Phosphorus 1.6 L Magnesium Total Bilirubin AST ALT Alkaline Phosphatase Total Protein Albumin 2.3 L Globulin Albumin/Globulin Ratio Procalcitonin 04/02/24 04/03/24 20:17 05:25 WBC 6.2 7.8 RBC 2.92 L 3.30 L Hgb 9.1 L 10.2 L Hct 26.8 L 30.0 L MCV 92 91 MCH 31.2 30.9 MCHC 34.0 34.0 RDW Std Deviation 47.8 H 47.7 H Plt Count 156 218 D Neut % (Auto) 81 H 87 H Lymph % (Auto) 16 10 [place] % (Auto) 3 2 Eos % (Auto) 0 0 Baso % (Auto) 0 0 Neut # (Auto) 5.0 6.7 Lymph # (Auto) 1.0 0.8 L [place] # (Auto) 0.2 0.2 Eos # (Auto) 0.0 0.0 Baso # (Auto) 0.0 0.0 Immature Gran # (Auto) 0.03 H 0.04 H Absolute Nucleated RBC 0.00 0.00 Immature Gran % 1 H 1 H Nucleated RBC % 0 0 PT 12.2 INR 1.1 APTT 37.0 H Sodium 141 139 Potassium 3.4 3.4 Chloride 112 H 113 H Carbon Dioxide 23.7 20.0 Anion Gap 5 L 6 L BUN 15 14 Creatinine 0.4 L 0.4 L Estim Creat Clear Calc 70.6 78.2 eGFR > 60 > 60 BUN/Creatinine Ratio 38 H 35 H Glucose 101 85 Calculated Osmolality 282 277 Lactic Acid 1.4 Calcium 7.1 L 7.1 L Corrected Calcium 8.4 L 8.3 L Phosphorus 1.5 L 2.3 L Magnesium 1.9 1.8 Total Bilirubin 0.2 L 0.3 AST 47 H 40 H ALT 27 24 Alkaline Phosphatase 118 H 133 H Total Protein 4.6 L 4.9 L Albumin 2.4 L 2.5 L Globulin 2.2 L 2.4 Albumin/Globulin Ratio 1.1 L 1.0 L Procalcitonin 0.21 ABG Interpretation ABG results: 03/30/24 04/01/24 04/01/24 13:55 10:25 17:20 ABG pH 7.48 H 7.52 H 7.47 H ABG pCO2 34 31 L 34 ABG pO2 300 H 155 H D 36 L* D ABG HCO3 25 25 25 ABG O2 Saturation 100 H 100 H 70 L ABG Base Excess 2 3 1 Quality Measures Quality Measures stroke Suspected type of Stroke: Unknown at this time Tenecteplase given: Reason(s) Tenecteplase not given: Outside the time window not given Rehab services: PT evaluation ordered VTE Prophylaxis: pharmaceutical Antithrombotic by day 2:: not indicated (describe) Statin ordered: >75 y/o moderate or high intensity dose Anticoagulation ordered for A-fib or flutter (current or hx): not indicated Advance care planning discussed with:: patient and child Assessment & Plan Assessment Current Active Medications: Generic Name Dose Route Start Last Admin Trade Name Freq PRN Reason Stop Dose Admin Acetaminophen 650 mg 03/30/24 16:17 Acetaminophen 325 Mg Tablet PO 04/29/24 16:16 Q6H PRN Fever >101.5 Acetaminophen 650 mg 03/30/24 16:17 04/01/24 19:17 Acetaminophen 325 Mg Tablet PO 04/29/24 16:16 650 mg Q6H PRN Administration PAIN SCALE 1-3 (mild Aspirin 81 mg 04/01/24 18:45 04/03/24 09:01 Aspirin 81 Mg Chew PO 05/01/24 18:44 81 mg QDAY ROGER Administration Atorvastatin Calcium 80 mg 04/01/24 21:00 04/02/24 21:52 Atorvastatin Calcium 20 Mg Tablet PO 05/01/24 20:59 80 mg HS ROGER Administration Bisacodyl 10 mg 03/30/24 19:00 04/03/24 08:41 Bisacodyl 10 Mg Supp NE 04/29/24 18:59 Not Given QDAY ROGER Protocol Calcium Carbonate 600 mg 04/03/24 09:45 04/03/24 09:54 Calcium Carbonate 600 Mg Tablet NG 05/03/24 09:44 600 mg QDAY ROGER Administration Dextrose 25 ml 03/30/24 16:22 04/01/24 04:58 Dextrose 50%-Water Inj 50 Ml Syringe IV 04/29/24 16:21 25 ml Q15MIN PRN Administration BG 50-70 responsive npo pt Dextrose 50 ml 03/30/24 16:22 Dextrose 50%-Water Inj 50 Ml Syringe IV 04/29/24 16:21 Q15MIN PRN BG <50 OR BG <70 & pt unresponsive Folic Acid 1 mg 03/30/24 16:45 04/03/24 09:05 Folic Acid Inj 1 Mg/0.2 Ml IVP 04/29/24 16:44 1 mg QDAY ROGER Administration Glucagon 1 mg 03/30/24 16:22 Glucagon Inj 1 Mg Vial IM Q15MIN PRN BG <70, and no IV access Heparin Sodium (Porcine) 5,000 unit 04/01/24 22:00 04/03/24 05:19 Heparin Sod Inj 5000 Unit/Ml Vial SC 04/15/24 21:59 Not Given Q8HR ROGER Ceftriaxone Sodium 2 gm/ 100 mls @ 200 mls/hr 04/02/24 09:00 04/03/24 09:54 Sodium Chloride IV 04/09/24 08:59 200 mls/hr QDAY ROGER Administration Metronidazole 500 mg in 100 mls @ 200 mls/hr 04/01/24 14:00 04/03/24 05:43 Flagyl 500 Mg Iv IV 04/08/24 13:59 200 mls/hr Q8HR ROGER Administration Azithromycin 500 mg/ Sodium 250 mls @ 250 mls/hr 04/02/24 09:00 04/02/24 10:42 Chloride IV 04/09/24 08:59 250 mls/hr QDAY ROGER Administration Norepinephrine/Dextrose 8 mg in 250 mls @ 3.836 mls/hr 04/02/24 20:07 04/03/24 06:00 Levophed In D5w 8mg/250ml IV 05/02/24 20:06 0.09 mcg/kg/min .Q24H PRN 6.904 mls/hr PER protocol Titration Protocol 0.05 MCG/KG/MIN Potassium Chloride 10 meq in 100 mls @ 100 mls/hr 04/03/24 08:28 Kcl Ivpb IV 04/03/24 11:27 Q1H ROGER Magnesium Sulfate 2 gm in 50 mls @ 25 mls/hr 04/03/24 08:28 Magnesium Sulfate Ivpb IV 04/03/24 10:27 X1 ONE Insulin Human Lispro 0 unit 03/30/24 17:00 04/03/24 05:38 Insulin Lispro (Admelog) 1 Unit/0.01 Ml Unit SC 04/29/24 16:59 Not Given Q6HR ROGER Protocol Levothyroxine Sodium 50 mcg 03/30/24 17:30 04/03/24 09:02 Levothyroxine Inj 100 Mcg Vial IV 04/29/24 17:29 50 mcg QDAY ROGER Administration Midodrine 10 mg 04/03/24 14:00 Midodrine 5 Mg Tablet NG 05/03/24 13:59 TID ROGER Ondansetron HCl 4 mg 03/30/24 16:17 Ondansetron Inj 2 Mg/Ml Inj 2 Ml IV 04/29/24 16:16 Q6H PRN NAUSEA OR VOMITING Protocol Pantoprazole Sodium 40 mg 03/30/24 16:30 04/03/24 09:01 Pantoprazole Inj 40 Mg Vial IVP 04/29/24 16:29 40 mg QDAY ROGER Administration Thiamine HCl 100 mg 03/30/24 16:45 04/03/24 09:04 Thiamine Inj 100 Mg/Ml Vial 2 Ml IVP 04/29/24 16:44 100 mg QDAY ROGER Administration Zinc Sulfate 220 mg 03/30/24 16:45 04/03/24 09:01 Zinc Sulfate 220 Mg Capsule PO 04/04/24 16:44 220 mg QDAY ROGER Administration Plan 79-year-old female with past medical history of hypertension, hyperlipidemia, 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 1. Acute decompensated systolic heart failure (EF 35 to 40%) 2. NSTEMI 3. Essential hypertension ?Given patient's elevated troponins which peaked at 1.033 and down trended this is most likely NSTEMI type II likely demand ischemia ?Given patient is a poor candidate for heart catheterization at this time due to other comorbidities we will treat medically for now ?Patient's blood pressure has been under control during her hospital stay. ?Echo done on 03/31/2024 has had the following findings: Negative bubble study. TTE is suboptimal to rule out PFO or ASD. Consider GLORIA if high clincial suspicion. Normal LV size. Moderate to severe LV systolic dysfunction with an EF of around 35 to 40%.Severe hypokinesis of the mid to apical septum, apical anterior and apical anterolateral segments and akinetic apex indicating possible LAD involvement versus Takotsubo syndrome. Difficult to comment on apical thrombus due to lack of definity. Normal RV size and function. Mild TR Moderate MAC. Mild MR Mild AV sclerosis without stenosis with mild AI. ?Patient most likely has some underlying CAD, but given multiple comorbidities and current clinical status she is not a good candidate for heart catheterization and family is aware of this and are in agreement. -Patient is currently on norepinephrine at 3.836 mL/h as well as midodrine 5 mg 3 times daily ? Patient's differential diagnosis includes Takotsubo versus LAD involvement given her, but given her multiple comorbidities, bedbound status, and severe contractions she is not a good candidate for heart catheterization given that she could not lay flat on the Key Account Director table. Should be attributed medically for now. Spoke with daughter at bedside about patient's code status and explained that being FULL CODE would likely put the patient through more hardship and could be more damaging than beneficial. Plan: ?Recommend goal-directed medical therapy with beta-devon, Entresto as well as spironolactone if blood pressure allows and kidney function is stable. ?Patient should also be on aspirin and statin ?No need to trend troponins ? Given patient's multiple comorbidities and history of decline in health would recommend ICU team to have goals of care discussions with patient's family. 4. Acute encephalopathy 5. Hypoglycemia 6. DM2 ?Patient has been taking glyburide 5 mg as well as metformin 625 mg 3 times daily which could have precipitated his patient hypoglycemia in the event that she has been having poor oral intake. ? Continue current management as per primary care team 7. Failure to thrive ?Patient may benefit from PEG tube placement as she has been having poor oral intake for the past few weeks. ? Recommend to follow GI recommendations ? Continue current management as per primary care team 8. CVA with residual right-sided deficits 9. Hyperlipidemia ? Continue current management as primary care team Continue rest of management as per primary team. We are grateful to be able to participate in Mrs. Rudd's care. Thank you for the consult Plan of care discussed with attending File Keeper, Dr. Ivory Iniguez MD PGY-1 Attending Provider Attestation/Addendum I have personally seen and examined the patient separately on the above date of service and discussed the plan of care with the resident. I reviewed the resident Dr. Richard consultation progress note and agree with the resident findings and plan in the note above and have also edited the documentation to reflect my findings and plan. Overnight patient was hypotensive and was started on pressors and transferred to the ICU. Chest x-ray today revealed possible new right lower lobe consolidation with new left pleural effusion versus consolidation. Patient is in shock and mostly cardiogenic versus septic shock. Patient already started on IV antibiotics ceftriaxone is also has less azithromycin. Patient on Levophed drip along with midodrine. Recommend no antihypertensives along with no goal-directed medical treatment for now. He does not have a new diagnosis of severe systolic congestive heart failure. Recommend to check a BNP and if elevated from the previous of 96 then patient can be started on diuresis with pressor support. Overall picture does not support flash pulmonary edema at this point of time but definitely patient received significant amount of fluid over the last few days and third spacing secondary to her low albumin status with an albumin of around 2.5. If BNP is elevated then start the diuresis. Recommend Lasix 40 mg IV along with IV albumin 30 minutes before the Lasix dose and monitor input output. Kidney function and liver function appear to be stable at the present point of time. Strict input output Daily weights and 2 g within diet. Had a long discussion with daughter who is at the bedside regarding the patient's condition, treatment, workup and diagnosis and treatment along with goals of care discussion for more than 25 minutes. Family does want the patient to be actively treated for everything and want to have the PEG tube for the patient. No comfort care at the present point of time but only DNR and DNI of the family agrees and patient should still continue to get aggressive medical treatment for the rest of her medical conditions at this point of time. Patient at present time is full code and she will speak to the rest of the family and let us know about their decisions regarding DNR and DNI. There is a high probability of sudden, clinically significant or life threatening deterioration in the patient condition which required the highest level of physician preparedness to intervene urgently. I have personally spent 35 minutes of critical care time, exclusive of time spent on any procedures, in evaluation and management of this critically ill patient. Rao Dodson M.D. Interventional Cardiology
--- NOTE | 2024-04-03 10:14 | PD.RESPRO ---
Documentation for date of: 04/03/24 Subjective Subjective Interval history: 04/03: Pt is an overnight upgrade.Pt has an rapid repsonse called for hypotension, Pt received 1L bolus NS without improvement of the BP. Pt was upgraded to the ICU for pressor support and started on levophed. Pt. 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 overnight pt. has 300 cc of urine output. Exam Vital Signs Temp Pulse Resp BP Pulse Ox O2 Del Method O2 Flow Rate 97.6 F 65 22 H 87/54 L 95 Nasal Cannula 2 04/03/24 07:00 04/03/24 09:54 04/03/24 09:15 04/03/24 09:54 04/03/24 09:15 04/02/24 20:00 04/03/24 07:27 Narrative Exam GENERAL: Awake, elderly thin non female, Not in acute distress, is able to follow command NEURO: alert, motor deficit in the right and upper and lower extremities HEENT: Atraumatic, Normocephalic. mucous membranes moist. Eyes open, symmetrical, & clear HEART: Normal Heart Sounds LUNGS: Clear to auscultation with no wheezing or crackles. ABDOMEN: soft, non-distended, non-tender, bowel sounds heard, no guarding or rebound tenderness SKIN: 2 sacral ulcers, smaller one appears to be stage 2 and larger one sppears to be stage 3 EXTREMITIES: 3+ pitting edema bilaterally on LE, non pitting edema on right hand, pedal pulses palpated Objective Labs 04/03/24 05:25 04/03/24 13:46 Labs: Laboratory Results - last 24 hr 04/02/24 04/02/24 04/02/24 10:30 12:23 13:49 WBC 6.6 RBC 2.93 L Hgb 9.1 L Hct 26.6 L MCV 91 MCH 31.1 MCHC 34.2 RDW Std Deviation 46.4 H Plt Count 173 Neut % (Auto) 83 H Lymph % (Auto) 14 [place] % (Auto) 3 Eos % (Auto) 0 Baso % (Auto) 0 Neut # (Auto) 5.5 Lymph # (Auto) 0.9 L [place] # (Auto) 0.2 Eos # (Auto) 0.0 Baso # (Auto) 0.0 Immature Gran # (Auto) 0.04 H Absolute Nucleated RBC 0.00 Immature Gran % 1 H Nucleated RBC % 0 PT INR APTT Sodium 137 Potassium 3.5 D Chloride 113 H Carbon Dioxide 20.1 Anion Gap 4 L BUN 14 Creatinine 0.4 L Estim Creat Clear Calc 70.6 eGFR > 60 BUN/Creatinine Ratio 35 H Glucose 105 Calculated Osmolality 274 L Lactic Acid 1.9 1.4 Calcium 7.0 L Corrected Calcium 8.4 L Phosphorus 1.6 L Magnesium Total Bilirubin AST ALT Alkaline Phosphatase Total Protein Albumin 2.3 L Globulin Albumin/Globulin Ratio Procalcitonin 04/02/24 04/03/24 20:17 05:25 WBC 6.2 7.8 RBC 2.92 L 3.30 L Hgb 9.1 L 10.2 L Hct 26.8 L 30.0 L MCV 92 91 MCH 31.2 30.9 MCHC 34.0 34.0 RDW Std Deviation 47.8 H 47.7 H Plt Count 156 218 D Neut % (Auto) 81 H 87 H Lymph % (Auto) 16 10 [place] % (Auto) 3 2 Eos % (Auto) 0 0 Baso % (Auto) 0 0 Neut # (Auto) 5.0 6.7 Lymph # (Auto) 1.0 0.8 L [place] # (Auto) 0.2 0.2 Eos # (Auto) 0.0 0.0 Baso # (Auto) 0.0 0.0 Immature Gran # (Auto) 0.03 H 0.04 H Absolute Nucleated RBC 0.00 0.00 Immature Gran % 1 H 1 H Nucleated RBC % 0 0 PT 12.2 INR 1.1 APTT 37.0 H Sodium 141 139 Potassium 3.4 3.4 Chloride 112 H 113 H Carbon Dioxide 23.7 20.0 Anion Gap 5 L 6 L BUN 15 14 Creatinine 0.4 L 0.4 L Estim Creat Clear Calc 70.6 78.2 eGFR > 60 > 60 BUN/Creatinine Ratio 38 H 35 H Glucose 101 85 Calculated Osmolality 282 277 Lactic Acid 1.4 Calcium 7.1 L 7.1 L Corrected Calcium 8.4 L 8.3 L Phosphorus 1.5 L 2.3 L Magnesium 1.9 1.8 Total Bilirubin 0.2 L 0.3 AST 47 H 40 H ALT 27 24 Alkaline Phosphatase 118 H 133 H Total Protein 4.6 L 4.9 L Albumin 2.4 L 2.5 L Globulin 2.2 L 2.4 Albumin/Globulin Ratio 1.1 L 1.0 L Procalcitonin 0.21 ABG Interpretation ABG results: 03/30/24 04/01/24 04/01/24 13:55 10:25 17:20 ABG pH 7.48 H 7.52 H 7.47 H ABG pCO2 34 31 L 34 ABG pO2 300 H 155 H D 36 L* D ABG HCO3 25 25 25 ABG O2 Saturation 100 H 100 H 70 L ABG Base Excess 2 3 1 Quality Measures Quality Measures stroke Suspected type of Stroke: Unknown at this time Tenecteplase given: Reason(s) Tenecteplase not given: Outside the time window not given Rehab services: PT evaluation ordered (not ordered due to pt. requiring pressor support in the ICU) VTE Prophylaxis: pharmaceutical Antithrombotic by day 2:: not indicated (describe) Statin ordered: n/a Anticoagulation ordered for A-fib or flutter (current or hx): not indicated Advance care planning discussed with:: patient Assessment & Plan Assessment Current Active Medications: Generic Name Dose Route Start Last Admin Trade Name Freq PRN Reason Stop Dose Admin Acetaminophen 650 mg 03/30/24 16:17 Acetaminophen 325 Mg Tablet PO 04/29/24 16:16 Q6H PRN Fever >101.5 Acetaminophen 650 mg 03/30/24 16:17 04/01/24 19:17 Acetaminophen 325 Mg Tablet PO 04/29/24 16:16 650 mg Q6H PRN Administration PAIN SCALE 1-3 (mild Aspirin 81 mg 04/01/24 18:45 04/03/24 09:01 Aspirin 81 Mg Chew PO 05/01/24 18:44 81 mg QDAY ROGER Administration Atorvastatin Calcium 80 mg 04/01/24 21:00 04/02/24 21:52 Atorvastatin Calcium 20 Mg Tablet PO 05/01/24 20:59 80 mg HS ROGER Administration Bisacodyl 10 mg 03/30/24 19:00 04/03/24 08:41 Bisacodyl 10 Mg Supp NH 04/29/24 18:59 Not Given QDAY ROGER Protocol Calcium Carbonate 600 mg 04/03/24 09:45 04/03/24 09:54 Calcium Carbonate 600 Mg Tablet NG 05/03/24 09:44 600 mg QDAY ROGER Administration Dextrose 25 ml 03/30/24 16:22 04/01/24 04:58 Dextrose 50%-Water Inj 50 Ml Syringe IV 04/29/24 16:21 25 ml Q15MIN PRN Administration BG 50-70 responsive npo pt Dextrose 50 ml 03/30/24 16:22 Dextrose 50%-Water Inj 50 Ml Syringe IV 04/29/24 16:21 Q15MIN PRN BG <50 OR BG <70 & pt unresponsive Folic Acid 1 mg 03/30/24 16:45 04/03/24 09:05 Folic Acid Inj 1 Mg/0.2 Ml IVP 04/29/24 16:44 1 mg QDAY ROGER Administration Glucagon 1 mg 03/30/24 16:22 Glucagon Inj 1 Mg Vial IM Q15MIN PRN BG <70, and no IV access Heparin Sodium (Porcine) 5,000 unit 04/01/24 22:00 04/03/24 05:19 Heparin Sod Inj 5000 Unit/Ml Vial SC 04/15/24 21:59 Not Given Q8HR ROGER Ceftriaxone Sodium 2 gm/ 100 mls @ 200 mls/hr 04/02/24 09:00 04/03/24 09:54 Sodium Chloride IV 04/09/24 08:59 200 mls/hr QDAY ROGER Administration Metronidazole 500 mg in 100 mls @ 200 mls/hr 04/01/24 14:00 04/03/24 05:43 Flagyl 500 Mg Iv IV 04/08/24 13:59 200 mls/hr Q8HR ROGER Administration Azithromycin 500 mg/ Sodium 250 mls @ 250 mls/hr 04/02/24 09:00 04/02/24 10:42 Chloride IV 04/09/24 08:59 250 mls/hr QDAY ROGER Administration Norepinephrine/Dextrose 8 mg in 250 mls @ 3.836 mls/hr 04/02/24 20:07 04/03/24 06:00 Levophed In D5w 8mg/250ml IV 05/02/24 20:06 0.09 mcg/kg/min .Q24H PRN 6.904 mls/hr PER protocol Titration Protocol 0.05 MCG/KG/MIN Magnesium Sulfate 2 gm in 50 mls @ 25 mls/hr 04/03/24 08:28 Magnesium Sulfate Ivpb IV 04/03/24 10:27 X1 ONE Insulin Human Lispro 0 unit 03/30/24 17:00 04/03/24 05:38 Insulin Lispro (Admelog) 1 Unit/0.01 Ml Unit SC 04/29/24 16:59 Not Given Q6HR [facility] Protocol Levothyroxine Sodium 50 mcg 03/30/24 17:30 04/03/24 09:02 Levothyroxine Inj 100 Mcg Vial IV 04/29/24 17:29 50 mcg QDAY ROGER Administration Midodrine 10 mg 04/03/24 14:00 Midodrine 5 Mg Tablet NG 05/03/24 13:59 TID ROGER Ondansetron HCl 4 mg 03/30/24 16:17 Ondansetron Inj 2 Mg/Ml Inj 2 Ml IV 04/29/24 16:16 Q6H PRN NAUSEA OR VOMITING Protocol Pantoprazole Sodium 40 mg 03/30/24 16:30 04/03/24 09:01 Pantoprazole Inj 40 Mg Vial IVP 04/29/24 16:29 40 mg QDAY ROGER Administration Thiamine HCl 100 mg 03/30/24 16:45 04/03/24 09:04 Thiamine Inj 100 Mg/Ml Vial 2 Ml IVP 04/29/24 16:44 100 mg QDAY ROGER Administration Zinc Sulfate 220 mg 03/30/24 16:45 04/03/24 09:01 Zinc Sulfate 220 Mg Capsule PO 04/04/24 16:44 220 mg QDAY ROGER Administration Plan Ms. 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 Per chart review and patient's daughter at bedside states patient have been declining physical activity for the past 2 months. She used to be able to walk herself to the restroom, feed herself, and walk around using walker and be able to communicate. But she has become increasingly depressed and bedbound for the last 1 week she has been having urinary incontinence and decreased oral intake. Patient was found unresponsive for which the family called ambulance. In the ED her blood glucose was found to be 13 she received D10 and her blood glucose improved and as well as her mentation. Patient was admitted to the hospital for possible PEG tube placement and treatment of bilateral pneumonia. On 04/02/2024 patient had a rapid response called for blood pressure of 75/44 maintaining MAP below 65 patient was given 1L bolus of normal saline without improvement of blood pressure and MAP; patient was upgraded to the ICU and Levophed was started. Neuro #Acute metabolic encephalopathy secondary to hypoglycemia -resolved -On admission patient's was altered with blood glucose was 13 and patient received D10 and her mentation improved to baseline -Patient's daughter have reported that for the past 2 months patient has become increasingly less physically active #History of CVA - Pt has a stroke in 2021 with residual deficit on the right side and global aphasia Cardio #Shock - Cardio vs. septic? -on admission pts. BC on 03/30 showed staph bacteremia -started levophed at 0.09 on 04/03 -midodrine 10mg TID -[place] findings are consistent with not fluid responsive, SVI 4.9% #Newly diagnosed CHF -EF 35-40 on echo 03/31 -In light of shock, will hold guideline directed medical therapy and will resume when able #Hx HTN - home meds on hold #. HLD - resumed home atorvastatis #Troponinemia on admission ? peaked at 1.033, without ST or T wave changes on EKG Pul #Pneumonia -Repeat chest x-ray today showed worsening diffuse significant bilateral pneumonia -on admission Pts. WBC was 15.2 --> 7.8 -Patient is on azithromycin and Rocephin ID #Pneumonia #Bacteremia -Blood cultures on 03/30/2024-grew Staph aureus on 1 of 2 -Blood cultures since then, urine cultures and MRSA - negative -On antibiotics azithromycin and Rocephin -If patient becomes febrile will consider repeating urine and blood cultures -Repeat urinalysis ordered GI # NG tube - resume trickle feeds at 10cc with no water flush #Cachexia -Failure to thrive, patient's weight is 49 kg -Per patient's daughter, patient has poor oral intake and they often have to feed her with a syringe #Hypoalbuminemia -Albumin is 2.5- likely secondary to nutritional deficiency -Will continue to treat underlying cause by giving adequate nutrition -Colloid fluid bolus given Endo #History of type 2 diabetes -Hemoglobin A1c on 1211 is 6.1, blood glucose 99 -Insulin sliding scale ordered #History of hypothyroidism -TSH 17.5, free T4 0.44 during this admission -Will increase home levothyroxine from 50 mcg to 75 mcg through NG tube Renal #Hyperchloremia -Chloride is 113 likely secondary to patient receiving 1 L bolus fluid of normal saline during rapid response #Hypocalcemia #Hypophosphatemia -Corrected calcium 8.3 and phosphorus 2.3 likely secondary to nutritional deficiency -Repleted both Heme #Acute anemia -Hemoglobin 10.2 and hematocrit 30 -Patient's baseline and some hemodilution as patient received 1 L bolus fluid DVT prophylaxis-Lovenox Skin #Sacral ulcer -Patient has 2 ulcers in the sacrum -Smaller 1 appears to be stage II and the bigger one appears to be stage III -Frequent pressure redistribution -Wound care is ordered Disposition: Upgraded to ICU for pressor support DVT Prophylaxis: enoxaparin 40mg Qdaily GI Prophylaxis: Pantoprozol-40 IV Qday Diet: NG- have not resumed feedings Code status: Full Assessment and plan discussed with my attending physician Dr. Daniel Zaman ([id number])- Internal medicine resident Attending Provider Attestation/Addendum Patient seen and examined with resident. Agree with above. In brief this is 79-year-old female who was brought to the ICU for multifactorial shock. On exam she is nonverbal at baseline however she is able to follow commands she has significant amount of edema in her extremities and is contracted with decubitus ulcer formation over the sacrum and her hip. Lung camara are diminished and coarse. She did receive adequate fluid resuscitation however remained persistently hypotensive and therefore was brought to the ICU for vasopressor support. She is on broad-spectrum antibiotics. Her cultures thus far negative to date. Recent echo does show new systolic heart failure however she does not appear to be a candidate for any intervention with cardiology. She is unable to tolerate beta-devon or MICHOACANO inhibitor at this moment in time. She currently has a NG tube for feeds and has been diagnosed recently with failure to thrive. She is being evaluated by GI to see if she would benefit from PEG tube after her ICU stay. Case discussed with ICU team Discussed with family at bedside, CODE STATUS was rediscussed and they would prefer to stay with full code at this moment in time despite her frail state Labs, imaging and records reviewed Approximately 45 critical care minutes required for evaluation, exam, review, intervention, discussion formulation of plan of care for this critically ill patient with shock on vasopressors.
[2024-04-03] MEDS: NAPH,KPH MBDB 1 PACKET (1.5 GM) 2 PACKET PO (11:03)
[2024-04-03] MEDS: Magnesium Sulfate 2 GM Ivpb 2 GM/50 ML BAG IV (11:03)
[2024-04-03] MEDS: LEVOTHYROXINE SODIUM 25 MCG TABLET NG (11:03)
[2024-04-03] MEDS: AZITHROMYCIN INJ 500 MG in SODIUM CHLORIDE 0.9% 250 ML 250 ML 250 MG IV (11:03)
--- NOTE | 2024-04-03 13:24 | PC.NURSE ---
MD Mallory made aware of low urine output.
[2024-04-03 14:44] LABS: Albumin, Serum 2.7 gm/dL (3.4-4.8); Anion Gap 7 (7-16); BUN/Creatinine Ratio 33 Ratio (12-20); Blood Urea Nitrogen 13 mg/dL (9-23); Calcium 7.4 mg/dL (8.3-10.6); Calcium (Corrected) 8.4 mg/dL (8.5-10.1); Carbon Dioxide 19.8 mMol/L (20.0-31.0); Chloride 113 mMol/L (98-107); Creatinine (Component) 0.4 mg/dL (0.6-1.3); Estimated Creatinine Clearance 78.2 mL/min (>60); Glucose 99 mg/dL (74-106); Osmolality,Calculated 279 (275-295); Phosphorous 2.2 mg/dL (2.4-5.1); Potassium 4.4 mMol/L (3.4-5.1); Sodium 140 mMol/L (136-145); eGFR > 60 See Note
[2024-04-03] MEDS: NAPH,KPH MBDB 1 PACKET (1.5 GM) PO (17:11)
--- NOTE | 2024-04-03 17:40 | ESPR_ITS ---
Documentation for date of: 04/03/24 Subjective Subjective Interval history: Patient hypotensive and on pressors PEG tube placement postponed and canceled at the moment GoLytely was stopped yesterday and colonoscopy was canceled Exam Vital Signs Temp Pulse Resp BP Pulse Ox O2 Del Method O2 Flow Rate 97.2 F 63 17 98/56 L 95 Nasal Cannula 2 04/03/24 16:00 04/03/24 17:15 04/03/24 17:15 04/03/24 17:15 04/03/24 17:15 04/02/24 20:00 04/03/24 07:27 Objective Labs 04/03/24 05:25 04/03/24 13:46 Labs: Laboratory Results - last 24 hr 04/02/24 04/03/24 04/03/24 20:17 05:25 13:46 WBC 6.2 7.8 RBC 2.92 L 3.30 L Hgb 9.1 L 10.2 L Hct 26.8 L 30.0 L MCV 92 91 MCH 31.2 30.9 MCHC 34.0 34.0 RDW Std Deviation 47.8 H 47.7 H Plt Count 156 218 D Neut % (Auto) 81 H 87 H Lymph % (Auto) 16 10 [place] % (Auto) 3 2 Eos % (Auto) 0 0 Baso % (Auto) 0 0 Neut # (Auto) 5.0 6.7 Lymph # (Auto) 1.0 0.8 L [place] # (Auto) 0.2 0.2 Eos # (Auto) 0.0 0.0 Baso # (Auto) 0.0 0.0 Immature Gran # (Auto) 0.03 H 0.04 H Absolute Nucleated RBC 0.00 0.00 Immature Gran % 1 H 1 H Nucleated RBC % 0 0 PT 12.2 INR 1.1 APTT 37.0 H Sodium 141 139 140 Potassium 3.4 3.4 4.4 D Chloride 112 H 113 H 113 H Carbon Dioxide 23.7 20.0 19.8 L Anion Gap 5 L 6 L 7 BUN 15 14 13 Creatinine 0.4 L 0.4 L 0.4 L Estim Creat Clear Calc 70.6 78.2 78.2 eGFR > 60 > 60 > 60 BUN/Creatinine Ratio 38 H 35 H 33 H Glucose 101 85 99 Calculated Osmolality 282 277 279 Lactic Acid 1.4 Calcium 7.1 L 7.1 L 7.4 L Corrected Calcium 8.4 L 8.3 L 8.4 L Phosphorus 1.5 L 2.3 L 2.2 L Magnesium 1.9 1.8 Total Bilirubin 0.2 L 0.3 AST 47 H 40 H ALT 27 24 Alkaline Phosphatase 118 H 133 H Total Protein 4.6 L 4.9 L Albumin 2.4 L 2.5 L 2.7 L Globulin 2.2 L 2.4 Albumin/Globulin Ratio 1.1 L 1.0 L Procalcitonin 0.21 Impressions Impression: # Failure to thrive # Abnormal CT scan of the abdomen pelvis # Hypotension on pressors Canceled the PEG placement for enteral hyperalimentation. Patient's general condition improved ABG Interpretation ABG results: 03/30/24 04/01/24 04/01/24 13:55 10:25 17:20 ABG pH 7.48 H 7.52 H 7.47 H ABG pCO2 34 31 L 34 ABG pO2 300 H 155 H D 36 L* D ABG HCO3 25 25 25 ABG O2 Saturation 100 H 100 H 70 L ABG Base Excess 2 3 1 Assessment & Plan A&P Narrative 79-year-old female with past medical history of hypertension, hyperlipidemia, 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 1. Acute decompensated systolic heart failure (EF 35 to 40%) 2. NSTEMI 3. Essential hypertension ?Given patient's elevated troponins which peaked at 1.033 and down trended this is most likely NSTEMI type II likely demand ischemia ?Given patient is a poor candidate for heart catheterization at this time due to other comorbidities we will treat medically for now ?Patient's blood pressure has been under control during her hospital stay. ?Echo done on 03/31/2024 has had the following findings: Negative bubble study. TTE is suboptimal to rule out PFO or ASD. Consider GLORIA if high clincial suspicion. Normal LV size. Moderate to severe LV systolic dysfunction with an EF of around 35 to 40%.Severe hypokinesis of the mid to apical septum, apical anterior and apical anterolateral segments and akinetic apex indicating possible LAD involvement versus Takotsubo syndrome. Difficult to comment on apical thrombus due to lack of definity. Normal RV size and function. Mild TR Moderate MAC. Mild MR Mild AV sclerosis without stenosis with mild AI. ?Patient most likely has some underlying CAD, but given multiple comorbidities and current clinical status she is not a good candidate for heart catheterization and family is aware of this and are in agreement. Plan: ?Recommend to treat patient as NSTEMI ?No need to trend troponins ?Okay to start heparin drip if no contraindications as well as aspirin and high intensity statin ? Given patient's multiple comorbidities and history of decline in health would recommend primary care team to have goals of care discussions with patient's family. 4. Acute encephalopathy 5. Hypoglycemia 6. DM2 ?Patient has been taking glyburide 5 mg as well as metformin 625 mg 3 times daily which could have precipitated his patient hypoglycemia in the event that she has been having poor oral intake. ? Continue current management as per primary care team 7. Failure to thrive ?Patient may benefit from PEG tube placement as she has been having poor oral intake for the past few weeks. ? Recommend to follow GI recommendations ? Continue current management as per primary care team 8. CVA with residual right-sided deficits 9. Hyperlipidemia ? Continue current management as primary care team Cardiology was consulted because of the abnormal echocardiogram which showed moderate to severe LV dysfunction with an EF of around 35 to 40%. Severe hypokinesis of the mid to apical septum, apical anterior and apical anterolateral segments as well as secondary to Indicating possible LAD involvement versus Takotsubo syndrome. RV size and function was normal and it showed mild valvular abnormalities. During my examination patient did not appear to be any fluid overload and patient is nonverbal bedbound and has severe contractures of all extremities and unable to provide any kind of history. VS per the daughter as well as the granddaughter were at the bedside patient has been like this for the past few months that she has not been able to eat and she is actually being taken for a PEG tube placement today and because of her poor nutrition patient appears cachectic. Explained to the family in the detail about a possible syndrome and the possible LAD disease given echocardiogram findings but as per the family she never complained of any chest pain or chest pressure as she does show in the sign language whenever something hurts her. Explained to the family that it would be futile to pursue the further workup of her new onset severe systolic congestive heart failure. The regional wall motion abnormalities involving the LAD territory as it could be well Takotsubo syndrome given her recent hospitalization. Patient is not an ideal candidate for any kind of cardiac catheterization as she cannot straighten any of her extremities because of the significant cramps factors. Also patient is bedbound, nonverbal with multiple comorbidities as mentioned above and recommend only medical treatment for now. Recommend aggressive medical treatment with goal-directed medical therapy with beta-devon, Entresto as well as spironolactone based on the blood pressure as well as the kidney function. If patient can tolerate patient should be on aspirin as well as statin high intensity. Check lipid profile TSH as well as A1c. Patient does not appear to be fluid overloaded and does not need diuretics at the present point of time. Patient actually is not eating because of dysphagia and plan for PEG tube for now. Also recommend primary team to discuss the goals of care for the patient in detail for the patient. 04/02/2024: No new complaints including any cardiac complaints. As detailed yesterday in the note plan is for aggressive medical management for her severe systolic congestive heart failure with a differential diagnosis of Takotsubo versus LAD involvement given her multiple comorbidities and the bedbound status with severe contractures and is not an appropriate candidate for cardiac catheterization as she will not be able to lie flat on the [employer]or Services Specialist table. The procedure would only be futile considering the above and recommend primary team to discuss the goals of care and also address the CODE STATUS for the patient Patient had an MRI performed the did not show any acute infarcts in showed prominent moderate chronic white matter changes. [place] encephalopathy mostly secondary to the hypoglycemia and sepsis as per the neurology. GI team following the patient and planning for PEG tube placement given her failure. Colonoscopy also planned by GI for CT scan abdominal pelvis showing thickening of the rectal wall as well as stool impaction increased stool burden. Patient also found to have 90% stenosis of the bifurcation of the right carotid artery which will be treated medically as she is not considered a candidate for carotid endarterectomy. Management of rest of the medical conditions as per primary team and other consultants. Thank you for the consult and allowing me to participate in the care of the patient. Cardiology will continue to follow. Rao Dodson M.D. Interventional Cardiology Time Spent With Patient Time: Total time spent is greater than 50% in coordination of care (as documented) at patient's floor/unit and/or counseling patient:
[2024-04-03 19:00] LABS: B-Type Natriuretic Peptide 276 pg/mL (0-100)
[2024-04-03] MEDS: ATORVASTATIN CALCIUM 20 MG TABLET 80 MG PO (21:06)
[2024-04-04] VITALS (220 sets, daily range): BP systolic 62–155; BP diastolic 30–91; PULSE 59–132; RESP 0–21; TEMP 36.2–36.7; O2SAT 73–100; BMI 21.2
[2024-04-04] MEDS: Norepinephrine/D5W 8mg/250ml 8 MG/250 ML BAG 9.973 MG IV (01:16)
[2024-04-04] MEDS: MIDODRINE 5 MG TABLET 10 MG NG ×3 (05:53→21:28)
[2024-04-04] MEDS: LEVOTHYROXINE SODIUM 25 MCG TABLET 75 MCG NG (05:53)
[2024-04-04] MEDS: metroNIDAZOLE/NS 500 MG IVPB 500 MG/100 ML BAG 200 MG IV (05:53)
[2024-04-04 06:13] LABS: Basophils % (Auto) 0 % (0-2.5); Eosinophils % (Auto) 0 % (0-10); Hemoglobin 10.9 g/dL (12.0-16.0); Immature Granulocytes % (Auto) 1 % (0-0); Immature Granulocytes Auto 0.05 Thou/mm3 (0.00-0.00); Lymphocytes % (Auto) 10 % (10-50); Mean Corpuscular HGB Conc 34.1 g/dl (31.0-37.0); Mean Corpuscular Volume 91 fL (80-100); Monocytes # (Auto) 0.2 Thou/mm3 (0.0-0.8); Monocytes % (Auto) 2 % (0-12); Neutrophils # (Auto) 8.5 Thou/mm3 (1.8-7.7); Neutrophils % (Auto) 87 % (37-80); Nucleated Red Blood Cell % 0 /100 WBC (0); Platelet Count 227 Thou/mm3 (140-440); RDW Standard Deviation 47.9 fL (36.4-46.3); Red Blood Count 3.52 Miln/mm3 (4.00-5.20); White Blood Count 9.7 Thou/mm3 (3.6-11.0)
[2024-04-04 06:34] LABS: Alanine Aminotransferase 31 U/L (10-49); Albumin, Serum 2.7 gm/dL (3.4-4.8); Albumin/Globulin Ratio 1.1 (1.2-2.2); Alkaline Phosphatase 198 U/L (46-116); Anion Gap 10 (7-16); Aspartate Amino Transferase 65 U/L (0-34); BUN/Creatinine Ratio 30 Ratio (12-20); Bilirubin,Total 0.2 mg/dL (0.3-1.2); Blood Urea Nitrogen 12 mg/dL (9-23); Calcium 7.7 mg/dL (8.3-10.6); Calcium (Corrected) 8.7 mg/dL (8.5-10.1); Chloride 112 mMol/L (98-107); Creatinine (Component) 0.4 mg/dL (0.6-1.3); Estimated Creatinine Clearance 70.6 mL/min (>60); Globulin 2.4 gm/dL (2.3-3.5); Glucose 110 mg/dL (74-106); Osmolality,Calculated 280 (275-295); Phosphorous 2.5 mg/dL (2.4-5.1); Potassium 4.1 mMol/L (3.4-5.1); Sodium 140 mMol/L (136-145); Total Protein 5.1 gm/dL (5.7-8.2); eGFR > 60 See Note
[2024-04-04] MEDS: bisacodyL 10 MG SUPP PR (08:17)
[2024-04-04] MEDS: ASPIRIN 81 MG CHEW PO (08:17)
[2024-04-04] MEDS: ZINC SULFATE 220 MG CAPSULE PO (08:17)
[2024-04-04] MEDS: ENOXAPARIN SOD INJ 40 MG/0.4 ML SYRINGE SC (08:17)
[2024-04-04] MEDS: CALCIUM CARBONATE 600 MG TABLET NG (08:17)
[2024-04-04] MEDS: PANTOPRAZOLE INJ 40 MG VIAL IVP (08:18)
[2024-04-04] MEDS: FOLIC ACID INJ 1 MG/0.2 ML IVP (08:18)
[2024-04-04] MEDS: THIAMINE INJ 100 MG/ML VIAL 2 ML IVP (08:18)
[2024-04-04] MEDS: cefTRIAXone 2 GM in SODIUM CHLORIDE 0.9% (P) 100 ML IV (08:20)
[2024-04-04] MEDS: DOBUTamine/D5w 500 MG IVPB 500 MG/250 ML BAG IV (10:07)
[2024-04-04] MEDS: FUROSEMIDE INJ 10 MG/ML 4ML VIAL 40 MG IVP (10:26)
[2024-04-04] MEDS: AZITHROMYCIN INJ 500 MG in SODIUM CHLORIDE 0.9% 250 ML 250 ML 250 MG IV (10:33)
--- NOTE | 2024-04-04 11:06 | PC.SS ---
VAULT CUSTODIAN received call from nurse Ding regarding some concerns about family not knowing what medical decision maker was so asked VAULT CUSTODIAN to go speak to family to educate.
--- NOTE | 2024-04-04 11:07 | PC.SS ---
CABLE ASSEMBLER met with pt's daughter Tamia Rudd who is Next of Kin on pt's chart. CABLE ASSEMBLER educated daughter on how she is the one that is allowed to make medical decisions for daughter due to being Next of Kin, CABLE ASSEMBLER asked pt's daughter who we can contact if she does not answer and also assist with Medical decisions and she stated Chance Pressley who is pt's grandson, .
--- NOTE | 2024-04-04 11:21 | ESPR_ITS ---
Documentation for date of: 04/04/24 Subjective Subjective Interval history: Patient was seen and examined at bedside this morning. Patient is awake alert and oxygen manage still cannula. Not intubated. Patient blood pressure has been low in spite of the Levophed and with primary ICU team increasing the Levophed drip. Patient is in shock and mostly cardiogenic along with septic shock is one of the blood cultures grew MSSA please. MAP is only at 60 mmHg in spite of the Levophed and midodrine 10 mg 3 times a day. Discussed with the family and patient still remains full code and are waiting for the rest of the family to come by to make the final decision regarding the CODE STATUS and further advance directives. Patient will need low-dose dobutamine for further pressure support to help the patient with increase cardiac output. Continue to titrate the pressors for MAP of greater than 65 mmHg. Patient's NT proBNP increased to 276 and previous of 69. Chest x-ray also shows some left-sided effusion along with some vascular congestion. Patient did receive 1 dose of IV Lasix and we will continue to monitor input output closely. Potassium 4.1 and magnesium 2 today, recommend to replete potassium magnesium to keep above 4 and 2 respectively to avoid any further arrhythmias. Again spoke with patient's daughter and granddaughter at bedside this morning. They still will like the patient to be FULL CODE and will await patient's nephew to discuss goals of care. Explained again that patient's condition remains guarded and she is currently requiring higher dose of vasopressor, family still wishing to continue with FULL CODE. Exam Vital Signs Temp Pulse Resp BP Pulse Ox O2 Del Method O2 Flow Rate 98 F 64 16 91/62 97 Nasal Cannula 3 04/04/24 08:00 04/04/24 10:26 04/04/24 10:16 04/04/24 10:26 04/04/24 10:11 04/04/24 06:45 04/04/24 06:45 Narrative Exam General:nonverbal, cachectic, temporal wasting, fragile, thin Eyes: able to trace Ears: No visible ear discharge Nose: No visible nasal discharge. Mouth/Throat: Dry mucous membranes,poor dentattion Neck: Neck supple, non-tender, no cervical lymphadenopathy. Lungs: Clear LEONEL to auscultation and percussion, No accessory muscle use. Cardio: Normal S1/S2, regular rhythm, no murmurs, no JVD Abdomen: Soft, non-tender, no palpable masses, peristalsis present, no guarding or rebound. Extremities: Symmetrical, contractures of LEONEL Wrist and LE, no peripheral edema , non-tender, peripheral pulses presents. Skin: No rashes, no lesions, warm to touch. Neuro: Could not be assessed due to patient's current condition, able to move all extremities's Objective Labs 04/04/24 04:58 04/04/24 04:58 Labs: Laboratory Results - last 24 hr 04/03/24 04/03/24 04/04/24 05:25 13:46 04:58 WBC 9.7 RBC 3.52 L Hgb 10.9 L Hct 32.0 L MCV 91 MCH 31.0 MCHC 34.1 RDW Std Deviation 47.9 H Plt Count 227 Neut % (Auto) 87 H Lymph % (Auto) 10 [place] % (Auto) 2 Eos % (Auto) 0 Baso % (Auto) 0 Neut # (Auto) 8.5 H Lymph # (Auto) 1.0 [place] # (Auto) 0.2 Eos # (Auto) 0.0 Baso # (Auto) 0.0 Immature Gran # (Auto) 0.05 H Absolute Nucleated RBC 0.00 Immature Gran % 1 H Nucleated RBC % 0 Sodium 140 140 Potassium 4.4 D 4.1 Chloride 113 H 112 H Carbon Dioxide 19.8 L 18.0 L Anion Gap 7 10 BUN 13 12 Creatinine 0.4 L 0.4 L Estim Creat Clear Calc 78.2 70.6 eGFR > 60 > 60 BUN/Creatinine Ratio 33 H 30 H Glucose 99 110 H Calculated Osmolality 279 280 Calcium 7.4 L 7.7 L Corrected Calcium 8.4 L 8.7 Phosphorus 2.2 L 2.5 Magnesium 2.0 Total Bilirubin 0.2 L AST 65 H ALT 31 Alkaline Phosphatase 198 H D B-Natriuretic Peptide 276 H Total Protein 5.1 L Albumin 2.7 L 2.7 L Globulin 2.4 Albumin/Globulin Ratio 1.1 L ABG Interpretation ABG results: 03/30/24 04/01/24 04/01/24 13:55 10:25 17:20 ABG pH 7.48 H 7.52 H 7.47 H ABG pCO2 34 31 L 34 ABG pO2 300 H 155 H D 36 L* D ABG HCO3 25 25 25 ABG O2 Saturation 100 H 100 H 70 L ABG Base Excess 2 3 1 Quality Measures Quality Measures stroke Suspected type of Stroke: Unknown at this time Tenecteplase given: Reason(s) Tenecteplase not given: Outside the time window not given Rehab services: PT evaluation ordered VTE Prophylaxis: pharmaceutical Antithrombotic by day 2:: not indicated (describe) Statin ordered: >75 y/o moderate or high intensity dose Anticoagulation ordered for A-fib or flutter (current or hx): not indicated Advance care planning discussed with:: patient and child Assessment & Plan Assessment Current Active Medications: Generic Name Dose Route Start Last Admin Trade Name Freq PRN Reason Stop Dose Admin Acetaminophen 650 mg 03/30/24 16:17 Acetaminophen 325 Mg Tablet PO 04/29/24 16:16 Q6H PRN Fever >101.5 Acetaminophen 650 mg 03/30/24 16:17 04/01/24 19:17 Acetaminophen 325 Mg Tablet PO 04/29/24 16:16 650 mg Q6H PRN Administration PAIN SCALE 1-3 (mild Aspirin 81 mg 04/01/24 18:45 04/04/24 08:17 Aspirin 81 Mg Chew PO 05/01/24 18:44 81 mg QDAY ROGER Administration Atorvastatin Calcium 80 mg 04/01/24 21:00 04/03/24 21:06 Atorvastatin Calcium 20 Mg Tablet PO 05/01/24 20:59 80 mg HS ROGER Administration Bisacodyl 10 mg 03/30/24 19:00 04/04/24 08:17 Bisacodyl 10 Mg Supp ID 04/29/24 18:59 10 mg QDAY ROGER Administration Protocol Calcium Carbonate 600 mg 04/03/24 09:45 04/04/24 08:17 Calcium Carbonate 600 Mg Tablet NG 05/03/24 09:44 600 mg QDAY ROGER Administration Dextrose 25 ml 03/30/24 16:22 04/01/24 04:58 Dextrose 50%-Water Inj 50 Ml Syringe IV 04/29/24 16:21 25 ml Q15MIN PRN Administration BG 50-70 responsive npo pt Dextrose 50 ml 03/30/24 16:22 Dextrose 50%-Water Inj 50 Ml Syringe IV 04/29/24 16:21 Q15MIN PRN BG <50 OR BG <70 & pt unresponsive Enoxaparin Sodium 40 mg 04/04/24 09:00 04/04/24 08:17 Enoxaparin Sod Inj 40 Mg/0.4 Ml Syringe SC 04/18/24 08:59 40 mg QDAY ROGER Administration Folic Acid 1 mg 03/30/24 16:45 04/04/24 08:18 Folic Acid Inj 1 Mg/0.2 Ml IVP 04/29/24 16:44 1 mg QDAY ROGER Administration Glucagon 1 mg 03/30/24 16:22 Glucagon Inj 1 Mg Vial IM Q15MIN PRN BG <70, and no IV access Ceftriaxone Sodium 2 gm/ 100 mls @ 200 mls/hr 04/02/24 09:00 04/04/24 08:20 Sodium Chloride IV 04/09/24 08:59 200 mls/hr QDAY ROGER Administration Azithromycin 500 mg/ Sodium 250 mls @ 250 mls/hr 04/02/24 09:00 04/04/24 10:33 Chloride IV 04/09/24 08:59 250 mls/hr QDAY ROGER Administration Norepinephrine/Dextrose 8 mg in 250 mls @ 3.836 mls/hr 04/02/24 20:07 04/04/24 11:12 Levophed In D5w 8mg/250ml IV 05/02/24 20:06 0.22 mcg/kg/min .Q24H PRN 16.877 mls/hr PER protocol Titration Protocol 0.05 MCG/KG/MIN Dobutamine HCl/Dextrose 500 mg in 250 mls @ 1.38 mls/hr 04/04/24 09:31 04/04/24 11:00 Dobutrex/D5w Ivpb IV 05/04/24 09:30 3.5 mcg/kg/min .Q24H PRN 4.83 mls/hr PER PROTOCOL Titration Protocol 1 MCG/KG/MIN Insulin Human Lispro 0 unit 03/30/24 17:00 04/04/24 05:38 Insulin Lispro (Admelog) 1 Unit/0.01 Ml Unit SC 04/29/24 16:59 Not Given Q6HR ROGER Protocol Levothyroxine Sodium 75 mcg 04/04/24 06:00 04/04/24 05:53 Levothyroxine Sodium 25 Mcg Tablet NG 05/04/24 05:59 75 mcg ACBR ROGER Administration Midodrine 10 mg 04/03/24 14:00 04/04/24 05:53 Midodrine 5 Mg Tablet NG 05/03/24 13:59 10 mg TID ROGER Administration Ondansetron HCl 4 mg 03/30/24 16:17 Ondansetron Inj 2 Mg/Ml Inj 2 Ml IV 04/29/24 16:16 Q6H PRN NAUSEA OR VOMITING Protocol Pantoprazole Sodium 40 mg 03/30/24 16:30 04/04/24 08:18 Pantoprazole Inj 40 Mg Vial IVP 04/29/24 16:29 40 mg QDAY ROGER Administration Thiamine HCl 100 mg 03/30/24 16:45 04/04/24 08:18 Thiamine Inj 100 Mg/Ml Vial 2 Ml IVP 04/29/24 16:44 100 mg QDAY ROGER Administration Zinc Sulfate 220 mg 03/30/24 16:45 04/04/24 08:17 Zinc Sulfate 220 Mg Capsule PO 04/04/24 16:44 220 mg QDAY ROGER Administration Plan 79-year-old female with past medical history of hypertension, hyperlipidemia, 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 1. Acute decompensated systolic heart failure (EF 35 to 40%) 2. NSTEMI 3. Essential hypertension ?Given patient's elevated troponins which peaked at 1.033 and down trended this is most likely NSTEMI type II likely demand ischemia ?Given patient is a poor candidate for heart catheterization at this time due to other comorbidities we will treat medically for now ?Patient's blood pressure has been under control during her hospital stay. ?Echo done on 03/31/2024 has had the following findings: Negative bubble study. TTE is suboptimal to rule out PFO or ASD. Consider GLORIA if high clincial suspicion. Normal LV size. Moderate to severe LV systolic dysfunction with an EF of around 35 to 40%.Severe hypokinesis of the mid to apical septum, apical anterior and apical anterolateral segments and akinetic apex indicating possible LAD involvement versus Takotsubo syndrome. Difficult to comment on apical thrombus due to lack of definity. Normal RV size and function. Mild TR Moderate MAC. Mild MR Mild AV sclerosis without stenosis with mild AI. ?Patient most likely has some underlying CAD, but given multiple comorbidities and current clinical status she is not a good candidate for heart catheterization and family is aware of this and are in agreement. -Patient is currently on norepinephrine at 3.836 mL/h as well as midodrine 5 mg 3 times daily ? Patient's differential diagnosis includes Takotsubo versus LAD involvement given her, but given her multiple comorbidities, bedbound status, and severe contractions she is not a good candidate for heart catheterization given that she could not lay flat on the [employer] table. Should be attributed medically for now. Spoke with daughter at bedside about patient's code status and explained that being FULL CODE would likely put the patient through more hardship and could be more damaging than beneficial. Again spoke with patient's daughter and granddaughter at bedside this morning. They still will like the patient to be FULL CODE and will await patient's nephew to discuss goals of care. Explained again that patient's condition remains guarded and she is currently requiring higher dose of vasopressor, family still wishing to continue with FULL CODE. Plan: ?Recommend to hold off on goal-directed medical therapy with beta-devon, Entresto as well as spironolactone as patient is still hypotensive and requiring increase of vasopressor. -Continue pressor support for now. ?Patient should also be on aspirin and statin ?No need to trend troponins Patient is awake alert and oxygen manage still cannula. Not intubated. Patient blood pressure has been low in spite of the Levophed and with primary ICU team increasing the Levophed drip. Patient is in shock and mostly cardiogenic along with septic shock is one of the blood cultures grew MSSA please. MAP is only at 60 mmHg in spite of the Levophed and midodrine 10 mg 3 times a day. Discussed with the family and patient still remains full code and are waiting for the rest of the family to come by to make the final decision regarding the CODE STATUS and further advance directives. Patient will need low-dose dobutamine for further pressure support to help the patient with increase cardiac output. Continue to titrate the pressors for MAP of greater than 65 mmHg. Patient's NT proBNP increased to 276 and previous of 69. Chest x-ray also shows some left-sided effusion along with some vascular congestion. Patient did receive 1 dose of IV Lasix and we will continue to monitor input output closely. Potassium 4.1 and magnesium 2 today, recommend to replete potassium magnesium to keep above 4 and 2 respectively to avoid any further arrhythmias. ? Given patient's multiple comorbidities and history of decline in health would recommend ICU team to have goals of care discussions with patient's family. 4. Acute encephalopathy 5. Hypoglycemia 6. DM2 ?Patient has been taking glyburide 5 mg as well as metformin 625 mg 3 times daily which could have precipitated his patient hypoglycemia in the event that she has been having poor oral intake. ? Continue current management as per primary care team 7. Failure to thrive ?Patient may benefit from PEG tube placement as she has been having poor oral intake for the past few weeks. ? Recommend to follow GI recommendations ? Continue current management as per primary care team 8. CVA with residual right-sided deficits 9. Hyperlipidemia ? Continue current management as primary care team Continue rest of management as per primary team. We are grateful to be able to participate in Mrs. Rudd's care. Thank you for the consult Plan of care discussed with attending [employer] Officer, Dr. Ivory Iniguez MD PGY-1 Attending Provider Attestation/Addendum I have personally seen and examined the patient separately on the above date of service and discussed the plan of care with the resident. I reviewed the resident Dr. Richard consultation progress note and agree with the resident findings and plan in the note above and have also edited the documentation to reflect my findings and plan. Rao Dodson M.D. Interventional Cardiology
[2024-04-04] MEDS: EPINEPHrine INJ 0.1 MG/ML SYRINGE 10ML 1 MG IV ×2 (11:37→11:53)
--- NOTE | 2024-04-04 12:09 | XR_ITS ---
Examination: AP chest single view Technique: AP portable supine chest single view Exam date and time: April 04, 2024 1221 hrs. Comparison April 03, 2024 Indications: Post central line placement Findings: Extensive bilateral lung opacity Right internal jugular central line tip SVC satisfactory position no pneumothorax Orogastric tube in the stomach Normal heart size Impression: Interval insertion right internal jugular central line, tip in satisfactory position, no pneumothorax
[2024-04-04] MEDS: VASOPRESSIN IN NS IVPB 20 UNIT/100 ML BAG 9 UNIT IV ×2 (12:13→21:22)
--- NOTE | 2024-04-04 12:31 | PD.INTPROC ---
Procedures Procedure Date / Time 04/04/24 1231 Central Line Placement Right IJ: Indication(s): shock Informed consent obtained: obtained from surrogate decision maker Time out done, and the following verified: correct patient, side and site, procedure, patient position and implants and/or equipment Patient placed on monitor/pulse ox: Yes Hand Hygiene: scrub and alcohol-based hand rub Max Sterile Barrier Techniques used: cap, mask, sterile gown, sterile gloves and sterile full body drape Central line prep: Chlorhexidine scrub and sterile drapes applied Local anesthesia used: lidocaine 1% Amount of anesthesia used (mL): 4 Ultrasound used for placement: Yes Sterile Technique if Ultrasound used, including sterile gel: yes Central line lumen inserted: triple Post procedure: sutured in place, good blood return, all ports aspirated, flushed, capped and sterile dressing applied Post procedure x-ray: tip of catheter in good position and no pneumothorax seen Patient tolerated procedure: well and no complications EBL(ml): 5 Complications: none Procedure comment: Attending note: I was present for the entire procedure and assisted with pagan aspects of the procedure. pt was hemodynamicaly unstable during the line placement and required 2 amps of epi pushes with rapidly increasing levophed titration
[2024-04-04] MEDS: INSULIN LISPRO (AdmeLOG) 1 UNIT/0.01 ML UNIT SC ×2 (13:26→18:24)
--- NOTE | 2024-04-04 13:33 | ESPR_ITS ---
Documentation for date of: 04/04/24 Subjective Subjective Interval history: 04/03: Pt is an overnight upgrade.Pt has an rapid response called for hypotension, Pt received 1L bolus NS without improvement of the BP. Pt was upgraded to the ICU for pressor support and started on levophed. Pt. 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 overnight pt. has 300 cc of urine output. 04/04: no acute overnight events. Pt. urine output was about 130cc and 1 BM overnight. Pt. continues to require higher rate of levophed , midrodrine 10 TIDdespite that she required dobutamine this morning as pt's MAP continues to drop below 60. Pt is alert, awake and is able to follow commands. on cheetah today pt. was not fluid responsive with TPR 1990, SVI 27, CI 1.8. Exam Vital Signs Temp Pulse Resp BP Pulse Ox O2 Del Method O2 Flow Rate 98 F 93 12 119/71 86 L Nasal Cannula 3 04/04/24 08:00 04/04/24 13:28 04/04/24 11:25 04/04/24 13:28 04/04/24 11:25 04/04/24 06:45 04/04/24 06:45 Narrative Exam GENERAL: Awake, elderly thin non female, Not in acute distress, is able to follow command NEURO: alert, motor deficit in the right and upper and lower extremities HEENT: Atraumatic, Normocephalic. mucous membranes moist. Eyes open, symmetrical, & clear HEART: Faint Heart Sounds LUNGS: Clear to auscultation with no wheezing or crackles. ABDOMEN: soft, non-distended, non-tender, bowel sounds heard, no guarding or rebound tenderness SKIN: 2 sacral ulcers, smaller one appears to be stage 2 and larger one sppears to be stage 3 EXTREMITIES: 3+ pitting edema bilaterally on LE, non pitting edema on right hand, pedal pulses palpated, contracted lower extremities Objective Labs 04/04/24 04:58 04/04/24 04:58 Labs: Laboratory Results - last 24 hr 04/03/24 04/03/24 04/04/24 05:25 13:46 04:58 WBC 9.7 RBC 3.52 L Hgb 10.9 L Hct 32.0 L MCV 91 MCH 31.0 MCHC 34.1 RDW Std Deviation 47.9 H Plt Count 227 Neut % (Auto) 87 H Lymph % (Auto) 10 [place] % (Auto) 2 Eos % (Auto) 0 Baso % (Auto) 0 Neut # (Auto) 8.5 H Lymph # (Auto) 1.0 [place] # (Auto) 0.2 Eos # (Auto) 0.0 Baso # (Auto) 0.0 Immature Gran # (Auto) 0.05 H Absolute Nucleated RBC 0.00 Immature Gran % 1 H Nucleated RBC % 0 Sodium 140 140 Potassium 4.4 D 4.1 Chloride 113 H 112 H Carbon Dioxide 19.8 L 18.0 L Anion Gap 7 10 BUN 13 12 Creatinine 0.4 L 0.4 L Estim Creat Clear Calc 78.2 70.6 eGFR > 60 > 60 BUN/Creatinine Ratio 33 H 30 H Glucose 99 110 H Calculated Osmolality 279 280 Calcium 7.4 L 7.7 L Corrected Calcium 8.4 L 8.7 Phosphorus 2.2 L 2.5 Magnesium 2.0 Total Bilirubin 0.2 L AST 65 H ALT 31 Alkaline Phosphatase 198 H D B-Natriuretic Peptide 276 H Total Protein 5.1 L Albumin 2.7 L 2.7 L Globulin 2.4 Albumin/Globulin Ratio 1.1 L ABG Interpretation ABG results: 03/30/24 04/01/24 04/01/24 13:55 10:25 17:20 ABG pH 7.48 H 7.52 H 7.47 H ABG pCO2 34 31 L 34 ABG pO2 300 H 155 H D 36 L* D ABG HCO3 25 25 25 ABG O2 Saturation 100 H 100 H 70 L ABG Base Excess 2 3 1 Quality Measures Quality Measures stroke Suspected type of Stroke: Unknown at this time Tenecteplase given: Reason(s) Tenecteplase not given: Outside the time window not given Rehab services: PT evaluation ordered (pt. is in ICU, will do when pt. is able to be downgraded ) VTE Prophylaxis: pharmaceutical Antithrombotic by day 2:: not indicated (describe) Statin ordered: >75 y/o moderate or high intensity dose Anticoagulation ordered for A-fib or flutter (current or hx): not indicated Advance care planning discussed with:: child Assessment & Plan Assessment Current Active Medications: Generic Name Dose Route Start Last Admin Trade Name Francisco Javierq PRN Reason Stop Dose Admin Acetaminophen 650 mg 03/30/24 16:17 Acetaminophen 325 Mg Tablet PO 04/29/24 16:16 Q6H PRN Fever >101.5 Acetaminophen 650 mg 03/30/24 16:17 04/01/24 19:17 Acetaminophen 325 Mg Tablet PO 04/29/24 16:16 650 mg Q6H PRN Administration PAIN SCALE 1-3 (mild Aspirin 81 mg 04/01/24 18:45 04/04/24 08:17 Aspirin 81 Mg Chew PO 05/01/24 18:44 81 mg QDAY ROGER Administration Atorvastatin Calcium 80 mg 04/01/24 21:00 04/03/24 21:06 Atorvastatin Calcium 20 Mg Tablet PO 05/01/24 20:59 80 mg HS ROGER Administration Bisacodyl 10 mg 03/30/24 19:00 04/04/24 08:17 Bisacodyl 10 Mg Supp AL 04/29/24 18:59 10 mg QDAY ROGER Administration Protocol Calcium Carbonate 600 mg 04/03/24 09:45 04/04/24 08:17 Calcium Carbonate 600 Mg Tablet NG 05/03/24 09:44 600 mg QDAY ROGER Administration Dextrose 25 ml 03/30/24 16:22 04/01/24 04:58 Dextrose 50%-Water Inj 50 Ml Syringe IV 04/29/24 16:21 25 ml Q15MIN PRN Administration BG 50-70 responsive npo pt Dextrose 50 ml 03/30/24 16:22 Dextrose 50%-Water Inj 50 Ml Syringe IV 04/29/24 16:21 Q15MIN PRN BG <50 OR BG <70 & pt unresponsive Enoxaparin Sodium 40 mg 04/04/24 09:00 04/04/24 08:17 Enoxaparin Sod Inj 40 Mg/0.4 Ml Syringe SC 04/18/24 08:59 40 mg QDAY ROGER Administration Folic Acid 1 mg 03/30/24 16:45 04/04/24 08:18 Folic Acid Inj 1 Mg/0.2 Ml IVP 04/29/24 16:44 1 mg QDAY ROGER Administration Glucagon 1 mg 03/30/24 16:22 Glucagon Inj 1 Mg Vial IM Q15MIN PRN BG <70, and no IV access Ceftriaxone Sodium 2 gm/ 100 mls @ 200 mls/hr 04/02/24 09:00 04/04/24 08:20 Sodium Chloride IV 04/09/24 08:59 200 mls/hr QDAY ROGER Administration Azithromycin 500 mg/ Sodium 250 mls @ 250 mls/hr 04/02/24 09:00 04/04/24 10:33 Chloride IV 04/09/24 08:59 250 mls/hr QDAY ROGER Administration Norepinephrine/Dextrose 8 mg in 250 mls @ 3.836 mls/hr 04/02/24 20:07 04/04/24 12:13 Levophed In D5w 8mg/250ml IV 05/02/24 20:06 0.54 mcg/kg/min .Q24H PRN 41.425 mls/hr PER protocol Titration Protocol 0.05 MCG/KG/MIN Dobutamine HCl/Dextrose 500 mg in 250 mls @ 1.38 mls/hr 04/04/24 09:31 04/04/24 11:00 Dobutrex/D5w Ivpb IV 05/04/24 09:30 3.5 mcg/kg/min .Q24H PRN 4.83 mls/hr PER PROTOCOL Titration Protocol 1 MCG/KG/MIN Vasopressin/Sodium Chloride 20 unit in 100 mls @ 9 mls/hr 04/04/24 12:19 04/04/24 12:13 Vasostrict/Ns Ivpb IV 05/04/24 12:18 0.03 unit/min .Q11H7M PRN 9 mls/hr PER PROTOCOL Administration Protocol 0.03 UNIT/MIN Insulin Human Lispro 0 unit 03/30/24 17:00 04/04/24 13:26 Insulin Lispro (Admelog) 1 Unit/0.01 Ml Unit SC 04/29/24 16:59 1 unit Q6HR ROGER Administration Protocol Levothyroxine Sodium 75 mcg 04/04/24 06:00 04/04/24 05:53 Levothyroxine Sodium 25 Mcg Tablet NG 05/04/24 05:59 75 mcg ACBR ROGER Administration Midodrine 10 mg 04/03/24 14:00 04/04/24 13:28 Midodrine 5 Mg Tablet NG 05/03/24 13:59 10 mg TID ROGER Administration Ondansetron HCl 4 mg 03/30/24 16:17 Ondansetron Inj 2 Mg/Ml Inj 2 Ml IV 04/29/24 16:16 Q6H PRN NAUSEA OR VOMITING Protocol Pantoprazole Sodium 40 mg 03/30/24 16:30 04/04/24 08:18 Pantoprazole Inj 40 Mg Vial IVP 04/29/24 16:29 40 mg QDAY ROGER Administration Thiamine HCl 100 mg 03/30/24 16:45 04/04/24 08:18 Thiamine Inj 100 Mg/Ml Vial 2 Ml IVP 04/29/24 16:44 100 mg QDAY ROGER Administration Zinc Sulfate 220 mg 03/30/24 16:45 04/04/24 08:17 Zinc Sulfate 220 Mg Capsule PO 04/04/24 16:44 220 mg QDAY ROGER Administration Plan Ms. 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 Per chart review and patient's daughter at bedside states patient have been declining physical activity for the past 2 months. She used to be able to walk herself to the restroom, feed herself, and walk around using walker and be able to communicate. But she has become increasingly depressed and bedbound for the last 1 week she has been having urinary incontinence and decreased oral intake. Patient was found unresponsive for which the family called ambulance. In the ED her blood glucose was found to be 13 she received D10 and her blood glucose improved and as well as her mentation. Patient was admitted to the hospital for possible PEG tube placement and treatment of bilateral pneumonia. On 04/02/2024 patient had a rapid response called for blood pressure of 75/44 maintaining MAP below 65 patient was given 1L bolus of normal saline without improvement of blood pressure and MAP; patient was upgraded to the ICU and Levophed was started. Neuro #Acute metabolic encephalopathy secondary to hypoglycemia -resolved -On admission patient's was altered with blood glucose was 13 and patient received D10 and her mentation improved to baseline -Patient's daughter have reported that for the past 2 months patient has become increasingly less physically active #History of CVA - Pt has a stroke in 2021 with residual deficit on the right side and global aphasia Cardio #Shock - More likely Cardiognic shock and less likely septic shock? -on admission pts. BC on 03/30 showed staph bacteremia in 1 of the 2 cultures, Pt has been on antibiotics -started levophed started on 04/03- -midodrine 10mg TID -Dobutamine drip started on 04/04- -Lasix 40 x1 given today -Cheetah findings are consistent with not fluid responsive #Newly diagnosed CHF -EF 35-40 on echo 03/31 -In light of shock, will hold guideline directed medical therapy and will resume when able #Hx HTN - home meds on hold #. HLD - resumed home atorvastatin #Troponinemia- resolved -on admission ? peaked at 1.033, without ST or T wave changes on EKG Pul #Pneumonia -Repeat chest x-ray today showed worsening diffuse significant bilateral pneumonia -on admission Pts. WBC was 15.2 --> 9.7 -Patient is on azithromycin and Rocephin 04/02- ID #Pneumonia #Bacteremia -Blood cultures on 03/30/2024-grew Staph aureus on 1 of 2 -Blood cultures since then, urine cultures and MRSA - negative -On antibiotics azithromycin and Rocephin -If patient becomes febrile will consider repeating urine and blood cultures GI # NG tube - resume trickle feeds at 10cc with no water flush #Failure to thrive -patient's weight is 46 kg, Pt. is frail and thin -Per patient's daughter, patient has poor oral intake and they often have to feed her with a syringe #Hypoalbuminemia -Albumin is 2.7- likely secondary to nutritional deficiency -Will continue to treat underlying cause by giving adequate nutrition -Colloid fluid bolus given on 04/03 Endo #History of type 2 diabetes -Hemoglobin A1c on 1211 is 6.1, blood glucose 110 -Insulin sliding scale ordered #History of hypothyroidism -TSH 17.5, free T4 0.44 during this admission -Will increase home levothyroxine from 50 mcg to 75 mcg through NG tube Renal #Hyperchloremia -Chloride is 112 likely secondary to Lasix -will continue to monitor daily labs Heme #Acute anemia -Hemoglobin 10.9 and hematocrit 32 -Patient's baseline -will continue to monitor with daily labs DVT prophylaxis-Lovenox Skin #Sacral ulcer -Patient has 2 ulcers in the sacrum -Smaller 1 appears to be stage II and the bigger one appears to be stage III -Frequent pressure redistribution -Wound care is ordered Disposition: ICU for pressor support DVT Prophylaxis: enoxaparin 40mg Qdaily GI Prophylaxis: Pantoprozol-40 IV Qday Diet: NG- have not resumed feedings Code status: Full Assessment and plan discussed with my attending physician Dr. Daniel Zaman ([id number])- Internal medicine resident Attending Provider Attestation/Addendum Patient seen and examined with resident. Agree with above. In brief this is 79-year-old female who was brought to the ICU for multifactorial shock. She was seen in conjunction with the cardiology service today. Cheetah was placed for additional hemodynamic monitoring as well as a central line. An SVO 2 was obtained and we will transduce his CVP. Patient's etiology of shock appears to be more cardiogenic at this point in time then distributive. This afternoon she has had a significant decompensation with rapidly escalating Levophed requirements. She is currently at 0.5 mics of Levophed as well as vasopressin. A 1 point in the afternoon she required 2 Amps of epi for systolic blood pressure in the 50s and 60s not responding to rapid upward titration of the Levophed and she was periarrest. She continues on broad-spectrum antibiotics to cover for sepsis with source being her pneumonia. Blood cultures from the 10th did grow MSSA however no additional cultures have been positive. Family discussion was held and at this point in time the family would prefer to keep her full code. She is being treated for what is felt to be a primary cardiogenic etiology with dobutamine, Levophed, vasopressin and diuresis. At this point in time cardiology does not feel that there is any thing additional what they have to offer at this point in time. Recommendations are appreciated. Case discussed with ICU team Labs, imaging and records reviewed Approximately 65 critical care minutes required for evaluation, exam, review, intervention, discussion formulation of plan of care for this critically ill patient with shock on vasopressors.
[2024-04-04 14:18] LABS: Base Excess, Venous -10 (-3-3); O2 Saturation, Venous 100 % (96-97); PCO2, Venous 19 mmHg (36-56); PO2, Venous 136 mmHg (15-58); pH, Venous 7.43 (7.33-7.66)
[2024-04-04] MEDS: Norepinephrine/D5W 8mg/250ml 8 MG/250 ML BAG 39.891 MG IV (15:16)
--- NOTE | 2024-04-04 16:04 | PD.IMPROG ---
Documentation for date of: 04/04/24 Subjective Subjective Interval history: Spoke with the internal medicine team Family is thinking of patient making the patient DNR DNI and comfort care but they still have not reached a decision Will hold off doing the PEG tube placement Exam Vital Signs Temp Pulse Resp BP Pulse Ox O2 Del Method O2 Flow Rate 98 F 98 12 136/73 H 95 Nasal Cannula 3 04/04/24 08:00 04/04/24 15:50 04/04/24 15:50 04/04/24 15:50 04/04/24 15:50 04/04/24 06:45 04/04/24 06:45 Routine Respiratory Exam Comments: Scattered rhonchi Routine Abdominal Exam Comments: Soft nontender Objective Labs 04/04/24 04:58 04/04/24 04:58 Labs: Laboratory Results - last 24 hr 04/03/24 04/04/24 04/04/24 05:25 04:58 13:52 WBC 9.7 RBC 3.52 L Hgb 10.9 L Hct 32.0 L MCV 91 MCH 31.0 MCHC 34.1 RDW Std Deviation 47.9 H Plt Count 227 Neut % (Auto) 87 H Lymph % (Auto) 10 [place] % (Auto) 2 Eos % (Auto) 0 Baso % (Auto) 0 Neut # (Auto) 8.5 H Lymph # (Auto) 1.0 [place] # (Auto) 0.2 Eos # (Auto) 0.0 Baso # (Auto) 0.0 Immature Gran # (Auto) 0.05 H Absolute Nucleated RBC 0.00 Immature Gran % 1 H Nucleated RBC % 0 VBG pH 7.43 VBG pCO2 19 L VBG pO2 136 H VBG O2 Sat (Kathy) 100 H VBG Base Excess -10 L Sodium 140 Potassium 4.1 Chloride 112 H Carbon Dioxide 18.0 L Anion Gap 10 BUN 12 Creatinine 0.4 L Estim Creat Clear Calc 70.6 eGFR > 60 BUN/Creatinine Ratio 30 H Glucose 110 H Calculated Osmolality 280 Calcium 7.7 L Corrected Calcium 8.7 Phosphorus 2.5 Magnesium 2.0 Total Bilirubin 0.2 L AST 65 H ALT 31 Alkaline Phosphatase 198 H D B-Natriuretic Peptide 276 H Total Protein 5.1 L Albumin 2.7 L Globulin 2.4 Albumin/Globulin Ratio 1.1 L Impressions Impression: # Failure to thrive # Abnormal weight loss # Abnormal CT scan of the abdomen pelvis Lindaly prep stopped because of patient's other pressing medical needs Continue conservative management ABG Interpretation ABG results: 03/30/24 04/01/24 04/01/24 13:55 10:25 17:20 ABG pH 7.48 H 7.52 H 7.47 H ABG pCO2 34 31 L 34 ABG pO2 300 H 155 H D 36 L* D ABG HCO3 25 25 25 ABG O2 Saturation 100 H 100 H 70 L ABG Base Excess 2 3 1 VBG pH VBG pCO2 VBG pO2 VBG Base Excess 04/04/24 13:52 ABG pH ABG pCO2 ABG pO2 ABG HCO3 ABG O2 Saturation ABG Base Excess VBG pH 7.43 VBG pCO2 19 L VBG pO2 136 H VBG Base Excess -10 L Assessment & Plan A&P Narrative 79-year-old female with past medical history of hypertension, hyperlipidemia, 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 1. Acute decompensated systolic heart failure (EF 35 to 40%) 2. NSTEMI 3. Essential hypertension ?Given patient's elevated troponins which peaked at 1.033 and down trended this is most likely NSTEMI type II likely demand ischemia ?Given patient is a poor candidate for heart catheterization at this time due to other comorbidities we will treat medically for now ?Patient's blood pressure has been under control during her hospital stay. ?Echo done on 03/31/2024 has had the following findings: Negative bubble study. TTE is suboptimal to rule out PFO or ASD. Consider GLORIA if high clincial suspicion. Normal LV size. Moderate to severe LV systolic dysfunction with an EF of around 35 to 40%.Severe hypokinesis of the mid to apical septum, apical anterior and apical anterolateral segments and akinetic apex indicating possible LAD involvement versus Takotsubo syndrome. Difficult to comment on apical thrombus due to lack of definity. Normal RV size and function. Mild TR Moderate MAC. Mild MR Mild AV sclerosis without stenosis with mild AI. ?Patient most likely has some underlying CAD, but given multiple comorbidities and current clinical status she is not a good candidate for heart catheterization and family is aware of this and are in agreement. Plan: ?Recommend to treat patient as NSTEMI ?No need to trend troponins ?Okay to start heparin drip if no contraindications as well as aspirin and high intensity statin ? Given patient's multiple comorbidities and history of decline in health would recommend primary care team to have goals of care discussions with patient's family. 4. Acute encephalopathy 5. Hypoglycemia 6. DM2 ?Patient has been taking glyburide 5 mg as well as metformin 625 mg 3 times daily which could have precipitated his patient hypoglycemia in the event that she has been having poor oral intake. ? Continue current management as per primary care team 7. Failure to thrive ?Patient may benefit from PEG tube placement as she has been having poor oral intake for the past few weeks. ? Recommend to follow GI recommendations ? Continue current management as per primary care team 8. CVA with residual right-sided deficits 9. Hyperlipidemia ? Continue current management as primary care team Cardiology was consulted because of the abnormal echocardiogram which showed moderate to severe LV dysfunction with an EF of around 35 to 40%. Severe hypokinesis of the mid to apical septum, apical anterior and apical anterolateral segments as well as secondary to Indicating possible LAD involvement versus Takotsubo syndrome. RV size and function was normal and it showed mild valvular abnormalities. During my examination patient did not appear to be any fluid overload and patient is nonverbal bedbound and has severe contractures of all extremities and unable to provide any kind of history. VS per the daughter as well as the granddaughter were at the bedside patient has been like this for the past few months that she has not been able to eat and she is actually being taken for a PEG tube placement today and because of her poor nutrition patient appears cachectic. Explained to the family in the detail about a possible syndrome and the possible LAD disease given echocardiogram findings but as per the family she never complained of any chest pain or chest pressure as she does show in the sign language whenever something hurts her. Explained to the family that it would be futile to pursue the further workup of her new onset severe systolic congestive heart failure. The regional wall motion abnormalities involving the LAD territory as it could be well Takotsubo syndrome given her recent hospitalization. Patient is not an ideal candidate for any kind of cardiac catheterization as she cannot straighten any of her extremities because of the significant cramps factors. Also patient is bedbound, nonverbal with multiple comorbidities as mentioned above and recommend only medical treatment for now. Recommend aggressive medical treatment with goal-directed medical therapy with beta-devon, Entresto as well as spironolactone based on the blood pressure as well as the kidney function. If patient can tolerate patient should be on aspirin as well as statin high intensity. Check lipid profile TSH as well as A1c. Patient does not appear to be fluid overloaded and does not need diuretics at the present point of time. Patient actually is not eating because of dysphagia and plan for PEG tube for now. Also recommend primary team to discuss the goals of care for the patient in detail for the patient. 04/02/2024: No new complaints including any cardiac complaints. As detailed yesterday in the note plan is for aggressive medical management for her severe systolic congestive heart failure with a differential diagnosis of Takotsubo versus LAD involvement given her multiple comorbidities and the bedbound status with severe contractures and is not an appropriate candidate for cardiac catheterization as she will not be able to lie flat on the Blow Pit Helper table. The procedure would only be futile considering the above and recommend primary team to discuss the goals of care and also address the CODE STATUS for the patient Patient had an MRI performed the did not show any acute infarcts in showed prominent moderate chronic white matter changes. [place] encephalopathy mostly secondary to the hypoglycemia and sepsis as per the neurology. GI team following the patient and planning for PEG tube placement given her failure. Colonoscopy also planned by GI for CT scan abdominal pelvis showing thickening of the rectal wall as well as stool impaction increased stool burden. Patient also found to have 90% stenosis of the bifurcation of the right carotid artery which will be treated medically as she is not considered a candidate for carotid endarterectomy. Management of rest of the medical conditions as per primary team and other consultants. Thank you for the consult and allowing me to participate in the care of the patient. Cardiology will continue to follow. Rao Dodson M.D. Interventional Cardiology Time Spent With Patient Time: Total time spent is greater than 50% in coordination of care (as documented) at patient's floor/unit and/or counseling patient:
--- NOTE | 2024-04-04 20:43 | VVPN_ITS ---
Telemedicine visit statement This visit was conducted with the use of phone was obtained on 04/04/24 at 2043. Documentation for date of: 04/04/24 Subjective Subjective Interval history: Patient is in ICU got transferred management of hypotension with pressors. Her blood pressure is stable on vasopressin and dobutamine in addition to midodrine. Virtual exam Vital Signs Temp Pulse Resp BP Pulse Ox O2 Del Method O2 Flow Rate 97.6 F 89 16 117/65 92 L Nasal Cannula 3 04/04/24 16:00 04/04/24 18:15 04/04/24 18:15 04/04/24 18:15 04/04/24 18:15 04/04/24 06:45 04/04/24 06:45 Objective Labs 04/04/24 04:58 04/04/24 04:58 Labs: Laboratory Results - last 24 hr 04/04/24 04/04/24 04:58 13:52 WBC 9.7 RBC 3.52 L Hgb 10.9 L Hct 32.0 L MCV 91 MCH 31.0 MCHC 34.1 RDW Std Deviation 47.9 H Plt Count 227 Neut % (Auto) 87 H Lymph % (Auto) 10 [place] % (Auto) 2 Eos % (Auto) 0 Baso % (Auto) 0 Neut # (Auto) 8.5 H Lymph # (Auto) 1.0 [place] # (Auto) 0.2 Eos # (Auto) 0.0 Baso # (Auto) 0.0 Immature Gran # (Auto) 0.05 H Absolute Nucleated RBC 0.00 Immature Gran % 1 H Nucleated RBC % 0 VBG pH 7.43 VBG pCO2 19 L VBG pO2 136 H VBG O2 Sat (Kathy) 100 H VBG Base Excess -10 L Sodium 140 Potassium 4.1 Chloride 112 H Carbon Dioxide 18.0 L Anion Gap 10 BUN 12 Creatinine 0.4 L Estim Creat Clear Calc 70.6 eGFR > 60 BUN/Creatinine Ratio 30 H Glucose 110 H Calculated Osmolality 280 Calcium 7.7 L Corrected Calcium 8.7 Phosphorus 2.5 Magnesium 2.0 Total Bilirubin 0.2 L AST 65 H ALT 31 Alkaline Phosphatase 198 H D Total Protein 5.1 L Albumin 2.7 L Globulin 2.4 Albumin/Globulin Ratio 1.1 L ABG Interpretation ABG results: 03/30/24 04/01/24 04/01/24 13:55 10:25 17:20 ABG pH 7.48 H 7.52 H 7.47 H ABG pCO2 34 31 L 34 ABG pO2 300 H 155 H D 36 L* D ABG HCO3 25 25 25 ABG O2 Saturation 100 H 100 H 70 L ABG Base Excess 2 3 1 VBG pH VBG pCO2 VBG pO2 VBG Base Excess 04/04/24 13:52 ABG pH ABG pCO2 ABG pO2 ABG HCO3 ABG O2 Saturation ABG Base Excess VBG pH 7.43 VBG pCO2 19 L VBG pO2 136 H VBG Base Excess -10 L Assessment & Plan Assessment 79 yo female with PMH of 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 Per daughter patient has been aphasic since last stroke, however she was able to walk with a walker and eat by herself until aproximately 2 months ago where she started progressively declining, decreasing oral intake, less active. The day of admission around 3am patient was found by daughter unresponsive and called EMS. On arrival patient was found with GCS of 3 glucose measured was 13, she was given D10 and repeat BS was 96. #Acute metabolic encephalopathy, improving -Likely in the setting of hypoglycemia and sepsis. -Head CT was negative for Negative for acute hemorrhage, mass effect or midline shift. Head/Neck CTA showed 90% plus stenosis right carotid bifurcation proximal right internal carotid artery, No cerebral large vessel arterial occlusions. -MRI brain confirmed no acute infarction, prominent moderate chronic white matter changes. -Echocardiogram:Negative bubble study. TTE is suboptimal to rule out PFO or ASD. Consider GLORIA if high clincial suspicion. Normal LV size. Moderate to severe LV systolic dysfunction with an EF of around 35 to 40%. Severe hypokinesis of the mid to apical septum, apical anterior and apical anterolateral segments and akinetic apex indicating possible LAD involvement versus Takotsubo syndrome. Difficult to comment on apical thrombus due to lack of definity. Normal RV size and function. Mild TR Moderate MAC. Mild MR Mild AV sclerosis without stenosis with mild AI. Patient is waiting for colonoscopy followed by PEG tube placement if her blood pressure stabilizes. Patient not candidate for endarterectomy -Recommend start dual antiplatelet after PEG tube placement -Continue atorvastatin #Hypotension: Getting treatment with the vasopressin, dobutamine in addition to midodrine in ICU
[2024-04-04] MEDS: ATORVASTATIN CALCIUM 20 MG TABLET 80 MG PO (21:28)
[2024-04-05] VITALS (108 sets, daily range): BP systolic 81–135; BP diastolic 42–95; PULSE 60–93; RESP 7–29; TEMP 36.2–36.6; O2SAT 84–100; BMI 20.9
[2024-04-05] MEDS: Norepinephrine/D5W 8mg/250ml 8 MG/250 ML BAG 23.014 MG IV (00:14)
[2024-04-05] MEDS: INSULIN LISPRO (AdmeLOG) 1 UNIT/0.01 ML UNIT SC ×3 (00:35→12:25)
[2024-04-05 06:01] LABS: Basophils % (Auto) 0 % (0-2.5); Eosinophils % (Auto) 0 % (0-10); Hematocrit 24.6 % (36.0-46.0); Immature Granulocytes % (Auto) 1 % (0-0); Immature Granulocytes Auto 0.06 Thou/mm3 (0.00-0.00); Lymphocytes # (Auto) 0.8 Thou/mm3 (1.0-4.8); Lymphocytes % (Auto) 9 % (10-50); Mean Corpuscular HGB Conc 34.6 g/dl (31.0-37.0); Mean Corpuscular Hemoglobin 31.1 pg (25.0-35.0); Mean Corpuscular Volume 90 fL (80-100); Monocytes # (Auto) 0.2 Thou/mm3 (0.0-0.8); Monocytes % (Auto) 3 % (0-12); Neutrophils % (Auto) 87 % (37-80); Nucleated Red Blood Cell % 0 /100 WBC (0); Platelet Count 160 Thou/mm3 (140-440); RDW Standard Deviation 46.5 fL (36.4-46.3); Red Blood Count 2.73 Miln/mm3 (4.00-5.20); White Blood Count 9.2 Thou/mm3 (3.6-11.0)
[2024-04-05 06:10] LABS: Hemoglobin 8.5 g/dL (12.0-16.0)
[2024-04-05] MEDS: MIDODRINE 5 MG TABLET 10 MG NG ×3 (06:19→21:03)
[2024-04-05] MEDS: LEVOTHYROXINE SODIUM 25 MCG TABLET 75 MCG NG (06:19)
[2024-04-05 06:31] LABS: Alanine Aminotransferase 35 U/L (10-49); Albumin, Serum 2.4 gm/dL (3.4-4.8); Alkaline Phosphatase 314 U/L (46-116); Anion Gap 10 (7-16); Aspartate Amino Transferase 65 U/L (0-34); BUN/Creatinine Ratio 30 Ratio (12-20); Bilirubin,Total 0.2 mg/dL (0.3-1.2); Blood Urea Nitrogen 12 mg/dL (9-23); Calcium 8.1 mg/dL (8.3-10.6); Calcium (Corrected) 9.4 mg/dL (8.5-10.1); Carbon Dioxide 20.9 mMol/L (20.0-31.0); Chloride 108 mMol/L (98-107); Creatinine (Component) 0.4 mg/dL (0.6-1.3); Estimated Creatinine Clearance 70.6 mL/min (>60); Globulin 2.5 gm/dL (2.3-3.5); Glucose 157 mg/dL (74-106); Magnesium 1.6 mg/dL (1.6-2.6); Osmolality,Calculated 280 (275-295); Phosphorous 2.1 mg/dL (2.4-5.1); Potassium 3.4 mMol/L (3.4-5.1); Sodium 139 mMol/L (136-145); Total Protein 4.9 gm/dL (5.7-8.2); eGFR > 60 See Note
[2024-04-05] MEDS: ENOXAPARIN SOD INJ 40 MG/0.4 ML SYRINGE SC (08:49)
[2024-04-05] MEDS: ASPIRIN 81 MG CHEW PO (08:49)
[2024-04-05] MEDS: CALCIUM CARBONATE 600 MG TABLET NG (08:49)
[2024-04-05] MEDS: cefTRIAXone 2 GM in SODIUM CHLORIDE 0.9% (P) 100 ML IV (08:50)
[2024-04-05] MEDS: bisacodyL 10 MG SUPP PR (08:50)
[2024-04-05] MEDS: PANTOPRAZOLE INJ 40 MG VIAL IVP (08:53)
[2024-04-05] MEDS: FOLIC ACID INJ 1 MG/0.2 ML IVP (08:53)
[2024-04-05] MEDS: AZITHROMYCIN INJ 500 MG in SODIUM CHLORIDE 0.9% 250 ML 250 ML 250 MG IV (08:54)
[2024-04-05] MEDS: THIAMINE INJ 100 MG/ML VIAL 2 ML IVP (09:04)
--- NOTE | 2024-04-05 09:07 | EKG_ITS ---
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 [employer]: SHAHRIAR : 1945 Requested By: Romero Mccain Order Number: [id number] Reading MD: Romero Mccain Measurements Intervals [place] Rate: 75 P: 147 TN: 75 QRS: 17 QRSD: 90 T: 0 QT: 394 QTc: 441 Interpretive Statements SINUS RHYTHM WITH SHORT TN INTERVAL LOW QRS VOLTAGE IN EXTREMITY LEADS ST DEVIATION AND MODERATE T-WAVE ABNORMALITY, CONSIDER ANTEROLATERAL ISCHEMIA Compared to ECG 03/30/2024 14:16:06 Short TN interval now present T-wave abnormality now present Possible ischemia now present Myocardial infarct finding no longer present /store/S0/[id number].pdf
[2024-04-05] MEDS: VASOPRESSIN IN NS IVPB 20 UNIT/100 ML BAG 9 UNIT IV (09:43)
--- NOTE | 2024-04-05 10:47 | ECHO_ITS ---
Transthoracic Echo Report Ht (in): 57 Wt (lb): 99 Exam Location: Echo Lab Status: Inpatient Inspector Finishing: Nataly Lopez Indications: Procedure Performed: BP: 104 / 72 HR: 71 Technical Quality: Technically difficult study MEASUREMENTS (Male / Female) Normal Values 2D ECHO LV Diastolic Diameter PLAX 4.3 cm 4.2 - 5.9 / 3.9 - 5.3 cm LV Systolic Diameter PLAX 3.0 cm IVS Diastolic Thickness 0.6 cm 0.6 - 1.0 / 0.6 - 0.9 cm LVPW Diastolic Thickness 1.2 cm 0.6 - 1.0 / 0.6 - 0.9 cm LV Relative Wall Thickness 0.4 LVOT Diameter 1.4 cm Aortic Root Diameter 2.6 cm LA Systolic Diameter LX 3.1 cm 3.0 - 4.0 / 2.7 - 3.8 cm M-MODE AV Cusp Separation MM 1.2 cm DOPPLER AV Peak Velocity 90.5 cm/s AV Peak Gradient 3.3 mmHg AV Mean Gradient 2.0 mmHg AV Velocity Time Integral 25.1 cm LVOT Peak Velocity 85.0 cm/s LVOT Peak Gradient 2.9 mmHg LVOT Velocity Time Integral 18.5 cm LVOT Cardiac Index 1498.6 cm?/min?m? AV Area Cont Eq vti 1.1 cm? AV Area Cont Eq pk 1.4 cm? MV Area PHT 2.0 cm? MR Peak Velocity 435.0 cm/s MR Peak Gradient 75.7 mmHg Mitral E Point Velocity 63.1 cm/s Mitral A Point Velocity 88.8 cm/s Mitral E to A Ratio 0.7 LV E' Lateral Velocity 7.1 cm/s Mitral E to LV E' Lateral Ratio 8.9 LV E' Septal Velocity 5.8 cm/s Mitral E to LV E' Septal Ratio 10.9 TR Peak Velocity 232.0 cm/s TR Peak Gradient 21.5 mmHg FINDINGS Left Ventricle Normal left ventricular size, wall thickness. Mild systolic dsyfunction. The ejection fraction is vi sually estimated at 45 %. Right Ventricle The right ventricle is normal in size and systolic function. The estimated right ventricular systoli c pressure, 34 mmHg. RAP 5. Left Atrium The left atrium is normal by two-dimensional, color flow and Doppler imaging with no structural abnormalities, no thrombus formation present. Right Atrium The right atrium is normal by two-dimensional imaging, color flow and Doppler imaging with no struct ural abnormalities, no thrombus formation present. Atrial Septum The interatrial septum appears normal with no evidence of a shunt. Aorta The aorta is normal by two-dimensional, color flow and Doppler interrogation. Mitral Valve The mitral valve is moderate MAC. There is mild to moderate mrtal valve regurgitation. Aortic Valve Mild sclerosis without stenosis. There is mild aortic valve regirgitation. Tricuspid Valve The tricuspid valve is normal by two-dimensional, color flow and Doppler interrogation. There is no significant tricuspid valve regurgitation. Pulmonic Valve The pulmonic valve is not well visualized. There is no significant pulmonic valve regurgitation. Vessels The pulmonary artery appears normal. The inferior vena cava pulmonary and hepatic veins appear gaurav l. Pericardium The pericardium is normal by two-dimensional imaging. There is no significant pericardial effusion. CONCLUSIONS Indication: CHF - Re-evaluate EF/possible Takatsubo Normal left ventricular size, wall thickness. Low normal systolic function. Estimated 45-50%. RV is normal in size and systolic function. The estimated RVSP, 34 mmHg. RAP 5. Moderate MAC. Mild to moderate MR. Mild sclerosis without stenosis. Mild AI. Rao Dodson (Electronically Signed) Final Date: 05 April 2024 18:17
--- NOTE | 2024-04-05 11:13 | PD.RESPRO ---
Documentation for date of: 04/05/24 Subjective Subjective Interval history: Patient was seen and examined at bedside this morning. Patient is clinically unchanged Patient blood pressure continues to be low in the spite on being on Levophed as well as vasopressin as well as midodrine 10 mg 3 times daily Echocardiogram done today showed low normal LV function with an EF of 45 to 50% much improved from before but was on pressors and could indicate possible Takotsubo syndrome which could be possibly secondary to the sepsis Patient was made DNR/DNI by family today as stated by ICU team. Potassium 3.4 and magnesium 1.6 today, recommend to replete potassium magnesium to keep above 4 and 2 respectively to avoid any further arrhythmias. Exam Vital Signs Temp Pulse Resp BP Pulse Ox O2 Del Method O2 Flow Rate 97.9 F 71 12 104/72 100 Nasal Cannula 6 04/05/24 04:00 04/05/24 10:30 04/05/24 10:30 04/05/24 10:30 04/05/24 10:30 04/04/24 20:00 04/05/24 06:11 Narrative Exam General:nonverbal, cachectic, temporal wasting, fragile, thin Eyes: able to trace Ears: No visible ear discharge Nose: No visible nasal discharge. Mouth/Throat: Dry mucous membranes,poor dentattion Neck: Neck supple, non-tender, no cervical lymphadenopathy. Lungs: Clear LEONEL to auscultation and percussion, No accessory muscle use. Cardio: Normal S1/S2, regular rhythm, no murmurs, no JVD Abdomen: Soft, non-tender, no palpable masses, peristalsis present, no guarding or rebound. Extremities: Symmetrical, contractures of LEONEL Wrist and LE, no peripheral edema , non-tender, peripheral pulses presents. Skin: No rashes, no lesions, warm to touch. Neuro: Could not be assessed due to patient's current condition, able to move all extremities's Objective Labs 04/05/24 04:51 04/05/24 04:51 Labs: Laboratory Results - last 24 hr 04/04/24 04/05/24 13:52 04:51 WBC 9.2 RBC 2.73 L Hgb 8.5 L D Hct 24.6 L MCV 90 MCH 31.1 MCHC 34.6 RDW Std Deviation 46.5 H Plt Count 160 D Neut % (Auto) 87 H Lymph % (Auto) 9 L [place] % (Auto) 3 Eos % (Auto) 0 Baso % (Auto) 0 Neut # (Auto) 8.0 H Lymph # (Auto) 0.8 L [place] # (Auto) 0.2 Eos # (Auto) 0.0 Baso # (Auto) 0.0 Immature Gran # (Auto) 0.06 H Absolute Nucleated RBC 0.00 Immature Gran % 1 H Nucleated RBC % 0 VBG pH 7.43 VBG pCO2 19 L VBG pO2 136 H VBG O2 Sat (Kathy) 100 H VBG Base Excess -10 L Sodium 139 Potassium 3.4 D Chloride 108 H Carbon Dioxide 20.9 Anion Gap 10 BUN 12 Creatinine 0.4 L Estim Creat Clear Calc 70.6 eGFR > 60 BUN/Creatinine Ratio 30 H Glucose 157 H Calculated Osmolality 280 Calcium 8.1 L Corrected Calcium 9.4 Phosphorus 2.1 L Magnesium 1.6 Total Bilirubin 0.2 L AST 65 H ALT 35 Alkaline Phosphatase 314 H D Total Protein 4.9 L Albumin 2.4 L Globulin 2.5 Albumin/Globulin Ratio 1.0 L ABG Interpretation ABG results: 03/30/24 04/01/24 04/01/24 13:55 10:25 17:20 ABG pH 7.48 H 7.52 H 7.47 H ABG pCO2 34 31 L 34 ABG pO2 300 H 155 H D 36 L* D ABG HCO3 25 25 25 ABG O2 Saturation 100 H 100 H 70 L ABG Base Excess 2 3 1 VBG pH VBG pCO2 VBG pO2 VBG Base Excess 04/04/24 13:52 ABG pH ABG pCO2 ABG pO2 ABG HCO3 ABG O2 Saturation ABG Base Excess VBG pH 7.43 VBG pCO2 19 L VBG pO2 136 H VBG Base Excess -10 L Quality Measures Quality Measures stroke Suspected type of Stroke: Unknown at this time Tenecteplase given: Reason(s) Tenecteplase not given: Outside the time window not given Rehab services: PT evaluation ordered VTE Prophylaxis: pharmaceutical Antithrombotic by day 2:: not indicated (describe) Statin ordered: >75 y/o moderate or high intensity dose Anticoagulation ordered for A-fib or flutter (current or hx): not indicated Advance care planning discussed with:: patient Assessment & Plan Assessment Current Active Medications: Generic Name Dose Route Start Last Admin Trade Name Freq PRN Reason Stop Dose Admin Acetaminophen 650 mg 03/30/24 16:17 Acetaminophen 325 Mg Tablet PO 04/29/24 16:16 Q6H PRN Fever >101.5 Acetaminophen 650 mg 03/30/24 16:17 04/01/24 19:17 Acetaminophen 325 Mg Tablet PO 04/29/24 16:16 650 mg Q6H PRN Administration PAIN SCALE 1-3 (mild Aspirin 81 mg 04/01/24 18:45 04/05/24 08:49 Aspirin 81 Mg Chew PO 05/01/24 18:44 81 mg QDAY ROGER Administration Atorvastatin Calcium 80 mg 04/01/24 21:00 04/04/24 21:28 Atorvastatin Calcium 20 Mg Tablet PO 05/01/24 20:59 80 mg HS ROGER Administration Bisacodyl 10 mg 03/30/24 19:00 04/05/24 08:50 Bisacodyl 10 Mg Supp VA 04/29/24 18:59 10 mg QDAY ROGER Administration Protocol Calcium Carbonate 600 mg 04/03/24 09:45 04/05/24 08:49 Calcium Carbonate 600 Mg Tablet NG 05/03/24 09:44 600 mg QDAY ROGER Administration Dextrose 25 ml 03/30/24 16:22 04/01/24 04:58 Dextrose 50%-Water Inj 50 Ml Syringe IV 04/29/24 16:21 25 ml Q15MIN PRN Administration BG 50-70 responsive npo pt Dextrose 50 ml 03/30/24 16:22 Dextrose 50%-Water Inj 50 Ml Syringe IV 04/29/24 16:21 Q15MIN PRN BG <50 OR BG <70 & pt unresponsive Enoxaparin Sodium 40 mg 04/04/24 09:00 04/05/24 08:49 Enoxaparin Sod Inj 40 Mg/0.4 Ml Syringe SC 04/18/24 08:59 40 mg QDAY ROGER Administration Folic Acid 1 mg 03/30/24 16:45 04/05/24 08:53 Folic Acid Inj 1 Mg/0.2 Ml IVP 04/29/24 16:44 1 mg QDAY ROGER Administration Glucagon 1 mg 03/30/24 16:22 Glucagon Inj 1 Mg Vial IM Q15MIN PRN BG <70, and no IV access Ceftriaxone Sodium 2 gm/ 100 mls @ 200 mls/hr 04/02/24 09:00 04/05/24 08:50 Sodium Chloride IV 04/08/24 08:59 200 mls/hr QDAY ROGER Administration Azithromycin 500 mg/ Sodium 250 mls @ 250 mls/hr 04/02/24 09:00 04/05/24 08:54 Chloride IV 04/08/24 08:59 250 mls/hr QDAY ROGER Administration Norepinephrine/Dextrose 8 mg in 250 mls @ 3.836 mls/hr 04/02/24 20:07 04/05/24 07:00 Levophed In D5w 8mg/250ml IV 05/02/24 20:06 0.28 mcg/kg/min .Q24H PRN 21.48 mls/hr PER protocol Titration Protocol 0.05 MCG/KG/MIN Dobutamine HCl/Dextrose 500 mg in 250 mls @ 1.38 mls/hr 04/04/24 09:31 04/05/24 09:15 Dobutrex/D5w Ivpb IV 05/04/24 09:30 3 mcg/kg/min .Q24H PRN 4.14 mls/hr PER PROTOCOL Titration Protocol 1 MCG/KG/MIN Vasopressin/Sodium Chloride 20 unit in 100 mls @ 9 mls/hr 04/04/24 12:19 04/05/24 09:43 Vasostrict/Ns Ivpb IV 05/04/24 12:18 0.03 unit/min .Q11H7M PRN 9 mls/hr PER PROTOCOL Administration Protocol 0.03 UNIT/MIN Insulin Human Lispro 0 unit 03/30/24 17:00 04/05/24 06:20 Insulin Lispro (Admelog) 1 Unit/0.01 Ml Unit SC 04/29/24 16:59 1 unit Q6HR ROGER Administration Protocol Levothyroxine Sodium 75 mcg 04/04/24 06:00 04/05/24 06:19 Levothyroxine Sodium 25 Mcg Tablet NG 05/04/24 05:59 75 mcg ACBR ROGER Administration Midodrine 10 mg 04/03/24 14:00 04/05/24 06:19 Midodrine 5 Mg Tablet NG 05/03/24 13:59 10 mg TID ROGER Administration Ondansetron HCl 4 mg 03/30/24 16:17 Ondansetron Inj 2 Mg/Ml Inj 2 Ml IV 04/29/24 16:16 Q6H PRN NAUSEA OR VOMITING Protocol Pantoprazole Sodium 40 mg 03/30/24 16:30 04/05/24 08:53 Pantoprazole Inj 40 Mg Vial IVP 04/29/24 16:29 40 mg QDAY ROGER Administration Thiamine HCl 100 mg 03/30/24 16:45 04/05/24 09:04 Thiamine Inj 100 Mg/Ml Vial 2 Ml IVP 04/29/24 16:44 100 mg QDAY ROGER Administration Plan 79-year-old female with past medical history of hypertension, hyperlipidemia, 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 1. Acute decompensated systolic heart failure (EF 35 to 40%) 2. NSTEMI 3. Essential hypertension ?Given patient's elevated troponins which peaked at 1.033 and down trended this is most likely NSTEMI type II likely demand ischemia ?Given patient is a poor candidate for heart catheterization at this time due to other comorbidities we will treat medically for now ?Patient's blood pressure has been under control during her hospital stay. ?Echo done on 03/31/2024 has had the following findings: Negative bubble study. TTE is suboptimal to rule out PFO or ASD. Consider GLORIA if high clincial suspicion. Normal LV size. Moderate to severe LV systolic dysfunction with an EF of around 35 to 40%.Severe hypokinesis of the mid to apical septum, apical anterior and apical anterolateral segments and akinetic apex indicating possible LAD involvement versus Takotsubo syndrome. Difficult to comment on apical thrombus due to lack of definity. Normal RV size and function. Mild TR Moderate MAC. Mild MR Mild AV sclerosis without stenosis with mild AI. ?Patient most likely has some underlying CAD, but given multiple comorbidities and current clinical status she is not a good candidate for heart catheterization and family is aware of this and are in agreement. -Patient is currently on norepinephrine at 3.836 mL/h as well as midodrine 5 mg 3 times daily ? 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 Should be attributed medically for now. Plan: ?Recommend to hold off on goal-directed medical therapy with beta-devon, Entresto as well as spironolactone as patient is still hypotensive and requiring increase of vasopressor. -Continue pressor support for now. ?Patient should also be on aspirin and statin ?No need to trend troponins Patient was seen and examined at bedside this morning. Patient is clinically unchanged Patient blood pressure continues to be low in the spite on being on Levophed as well as vasopressin as well as midodrine 10 mg 3 times daily Echocardiogram done today showed low normal LV function with an EF of 45 to 50% much improved from before but was on pressors and could indicate possible Takotsubo syndrome which could be possibly secondary to the sepsis Patient was made DNR/DNI by family today as stated by ICU team. Potassium 3.4 and magnesium 1.6 today, recommend to replete potassium magnesium to keep above 4 and 2 respectively to avoid any further arrhythmias. 4. Acute encephalopathy 5. Hypoglycemia 6. DM2 ?Patient has been taking glyburide 5 mg as well as metformin 625 mg 3 times daily which could have precipitated his patient hypoglycemia in the event that she has been having poor oral intake. ? Continue current management as per primary care team 7. Failure to thrive ?Patient may benefit from PEG tube placement as she has been having poor oral intake for the past few weeks. ? Recommend to follow GI recommendations ? Continue current management as per primary care team 8. CVA with residual right-sided deficits 9. Hyperlipidemia ? Continue current management as primary care team Continue rest of management as per primary team. We are grateful to be able to participate in Mrs. Rudd's care. Thank you for the consult Plan of care discussed with attending [employer] Designer, Dr. Ivory Iniguez MD PGY-1 There is a high probability of sudden, clinically significant or life threatening deterioration in the patient condition which required the highest level of physician preparedness to intervene urgently. I have personally spent 35 minutes of critical care time, exclusive of time spent on any procedures, in evaluation and management of this critically ill patient. Attending Provider Attestation/Addendum I have personally seen and examined the patient separately on the above date of service and discussed the plan of care with the resident. I reviewed the resident Dr. Richard consultation progress note and agree with the resident findings and plan in the note above and have also edited the documentation to reflect my findings and plan. Rao Dodson M.D. Interventional Cardiology
--- NOTE | 2024-04-05 11:50 | PD.RESPRO ---
Documentation for date of: 04/05/24 Subjective Subjective Interval history: Seen and examined in ICU, upgraded for septic shock management. Mentation at baseline. Exam Vital Signs Temp Pulse Resp BP Pulse Ox O2 Del Method O2 Flow Rate 97.9 F 62 12 125/76 100 Nasal Cannula 6 04/05/24 04:00 04/05/24 11:31 04/05/24 11:31 04/05/24 11:31 04/05/24 11:31 04/04/24 20:00 04/05/24 06:11 Constitutional Comments: More alert Routine Respiratory Exam Comments: Scattered rhonchi Routine Abdominal Exam Comments: Soft nontender Objective Labs 04/06/24 05:10 04/06/24 15:19 Labs: Laboratory Results - last 24 hr 04/04/24 04/05/24 13:52 04:51 WBC 9.2 RBC 2.73 L Hgb 8.5 L D Hct 24.6 L MCV 90 MCH 31.1 MCHC 34.6 RDW Std Deviation 46.5 H Plt Count 160 D Neut % (Auto) 87 H Lymph % (Auto) 9 L [place] % (Auto) 3 Eos % (Auto) 0 Baso % (Auto) 0 Neut # (Auto) 8.0 H Lymph # (Auto) 0.8 L [place] # (Auto) 0.2 Eos # (Auto) 0.0 Baso # (Auto) 0.0 Immature Gran # (Auto) 0.06 H Absolute Nucleated RBC 0.00 Immature Gran % 1 H Nucleated RBC % 0 VBG pH 7.43 VBG pCO2 19 L VBG pO2 136 H VBG O2 Sat (Kathy) 100 H VBG Base Excess -10 L Sodium 139 Potassium 3.4 D Chloride 108 H Carbon Dioxide 20.9 Anion Gap 10 BUN 12 Creatinine 0.4 L Estim Creat Clear Calc 70.6 eGFR > 60 BUN/Creatinine Ratio 30 H Glucose 157 H Calculated Osmolality 280 Calcium 8.1 L Corrected Calcium 9.4 Phosphorus 2.1 L Magnesium 1.6 Total Bilirubin 0.2 L AST 65 H ALT 35 Alkaline Phosphatase 314 H D Total Protein 4.9 L Albumin 2.4 L Globulin 2.5 Albumin/Globulin Ratio 1.0 L Impressions Impression: # Dysphagia # Failure to thrive Continue NGT feeding till the family decides for PEG placement ABG Interpretation ABG results: 03/30/24 04/01/2404/01/24 13:55 10:25 17:20 ABG pH 7.48 H 7.52 H 7.47 H ABG pCO2 34 31 L 34 ABG pO2 300 H 155 H D 36 L* D ABG HCO3 25 25 25 ABG O2 Saturation 100 H 100 H 70 L ABG Base Excess 2 3 1 VBG pH VBG pCO2 VBG pO2 VBG Base Excess 04/04/24 13:52 ABG pH ABG pCO2 ABG pO2 ABG HCO3 ABG O2 Saturation ABG Base Excess VBG pH 7.43 VBG pCO2 19 L VBG pO2 136 H VBG Base Excess -10 L Quality Measures Quality Measures stroke Suspected type of Stroke: Unknown at this time Tenecteplase given: Reason(s) Tenecteplase not given: Outside the time window not given Rehab services: PT evaluation ordered and Speech Language Pathology eval ordered VTE Prophylaxis: pharmaceutical Antithrombotic by day 2:: not indicated (describe) Statin ordered: >75 y/o moderate or high intensity dose Anticoagulation ordered for A-fib or flutter (current or hx): not indicated Advance care planning discussed with:: patient Assessment & Plan Assessment Current Active Medications: Generic Name Dose Route Start Last Admin Trade Name Freq PRN Reason Stop Dose Admin Acetaminophen 650 mg 03/30/24 16:17 Acetaminophen 325 Mg Tablet PO 04/29/24 16:16 Q6H PRN Fever >101.5 Acetaminophen 650 mg 03/30/24 16:17 04/01/24 19:17 Acetaminophen 325 Mg Tablet PO 04/29/24 16:16 650 mg Q6H PRN Administration PAIN SCALE 1-3 (mild Aspirin 81 mg 04/01/24 18:45 04/05/24 08:49 Aspirin 81 Mg Chew PO 05/01/24 18:44 81 mg QDAY ROGER Administration Atorvastatin Calcium 80 mg 04/01/24 21:00 04/04/24 21:28 Atorvastatin Calcium 20 Mg Tablet PO 05/01/24 20:59 80 mg HS ROGER Administration Bisacodyl 10 mg 03/30/24 19:00 04/05/24 08:50 Bisacodyl 10 Mg Supp ME 04/29/24 18:59 10 mg QDAY ROGER Administration Protocol Calcium Carbonate 600 mg 04/03/24 09:45 04/05/24 08:49 Calcium Carbonate 600 Mg Tablet NG 05/03/24 09:44 600 mg QDAY ROGER Administration Dextrose 25 ml 03/30/24 16:22 04/01/24 04:58 Dextrose 50%-Water Inj 50 Ml Syringe IV 04/29/24 16:21 25 ml Q15MIN PRN Administration BG 50-70 responsive npo pt Dextrose 50 ml 03/30/24 16:22 Dextrose 50%-Water Inj 50 Ml Syringe IV 04/29/24 16:21 Q15MIN PRN BG <50 OR BG <70 & pt unresponsive Enoxaparin Sodium 40 mg 04/04/24 09:00 04/05/24 08:49 Enoxaparin Sod Inj 40 Mg/0.4 Ml Syringe SC 04/18/24 08:59 40 mg QDAY ROGER Administration Folic Acid 1 mg 03/30/24 16:45 04/05/24 08:53 Folic Acid Inj 1 Mg/0.2 Ml IVP 04/29/24 16:44 1 mg QDAY ROGER Administration Glucagon 1 mg 03/30/24 16:22 Glucagon Inj 1 Mg Vial IM Q15MIN PRN BG <70, and no IV access Ceftriaxone Sodium 2 gm/ 100 mls @ 200 mls/hr 04/02/24 09:00 04/05/24 08:50 Sodium Chloride IV 04/08/24 08:59 200 mls/hr QDAY ROGER Administration Azithromycin 500 mg/ Sodium 250 mls @ 250 mls/hr 04/02/24 09:00 04/05/24 08:54 Chloride IV 04/08/24 08:59 250 mls/hr QDAY ROGER Administration Norepinephrine/Dextrose 8 mg in 250 mls @ 3.836 mls/hr 04/02/24 20:07 04/05/24 07:00 Levophed In D5w 8mg/250ml IV 05/02/24 20:06 0.28 mcg/kg/min .Q24H PRN 21.48 mls/hr PER protocol Titration Protocol 0.05 MCG/KG/MIN Dobutamine HCl/Dextrose 500 mg in 250 mls @ 1.38 mls/hr 04/04/24 09:31 04/05/24 09:15 Dobutrex/D5w Ivpb IV 05/04/24 09:30 3 mcg/kg/min .Q24H PRN 4.14 mls/hr PER PROTOCOL Titration Protocol 1 MCG/KG/MIN Vasopressin/Sodium Chloride 20 unit in 100 mls @ 9 mls/hr 04/04/24 12:19 04/05/24 09:43 Vasostrict/Ns Ivpb IV 05/04/24 12:18 0.03 unit/min .Q11H7M PRN 9 mls/hr PER PROTOCOL Administration Protocol 0.03 UNIT/MIN Insulin Human Lispro 0 unit 03/30/24 17:00 04/05/24 06:20 Insulin Lispro (Admelog) 1 Unit/0.01 Ml Unit SC 04/29/24 16:59 1 unit Q6HR ROGER Administration Protocol Levothyroxine Sodium 75 mcg 04/04/24 06:00 04/05/24 06:19 Levothyroxine Sodium 25 Mcg Tablet NG 05/04/24 05:59 75 mcg ACBR ROGER Administration Midodrine 10 mg 04/03/24 14:00 04/05/24 06:19 Midodrine 5 Mg Tablet NG 05/03/24 13:59 10 mg TID ROGER Administration Ondansetron HCl 4 mg 03/30/24 16:17 Ondansetron Inj 2 Mg/Ml Inj 2 Ml IV 04/29/24 16:16 Q6H PRN NAUSEA OR VOMITING Protocol Pantoprazole Sodium 40 mg 03/30/24 16:30 04/05/24 08:53 Pantoprazole Inj 40 Mg Vial IVP 04/29/24 16:29 40 mg QDAY ROGER Administration Thiamine HCl 100 mg 03/30/24 16:45 04/05/24 09:04 Thiamine Inj 100 Mg/Ml Vial 2 Ml IVP 04/29/24 16:44 100 mg QDAY ROGER Administration Plan 79 yo female with PMH of 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 Per daughter patient has been aphasic since last stroke, however she was able to walk with a walker and eat by herself until aproximately 2 months ago where she started progressively declining, decreasing oral intake, less active. The day of admission around 3am patient was found by daughter unresponsive and called EMS. On arrival patient was found with GCS of 3 glucose measured was 13, she was given D10 and repeat BS was 96. #Acute metabolic encephalopathy, improving -Likely in the setting of hypoglycemia and sepsis. -Head CT was negative for Negative for acute hemorrhage, mass effect or midline shift. Head/Neck CTA showed 90% plus stenosis right carotid bifurcation proximal right internal carotid artery, No cerebral large vessel arterial occlusions. -MRI brain confirmed no acute infarction, prominent moderate chronic white matter changes. -Echocardiogram:Negative bubble study. #90%right stenosis internal carotid Patient not candidate for endarterectomy -Recommend start dual antiplatelet after PEG tube placement -Continue atorvastatin Patient's care discussed with attending physician, Dr Oumou Dupont MD PGY3 Attending Provider Attestation/Addendum I personally have seen and examined the patient at the bedside and I agree with resident's findings, assessment and plan of care. The CODE STATUS been changed to DNR recently ICU team talked to the family. She is off of vasopressin and only on Levophed for now and is maintaining the BP.
--- NOTE | 2024-04-05 13:24 | EVENTNT_ITS ---
<Statement entered by Keyla Ortiz MD - 04/05/24 17:27> I saw and evaluated the patient. I reviewed the resident?s note and agree with findings and plan as documented in the resident?s note. Documentation for date of: 04/05/24 Event Note Event Note: I was called to beside to discuss Pt's code status. After thorough discussion regarding the patients's current clinical condition and prognosis, Ms. Rudd's daughter Tamia and grandson Chance at bedside have decided to change the code status from Full code to DNR/DNI. the decision was made after careful consideration of the patient's advance illness and quality of life. The family understands that this change means that, in the event of cardiac or respiratory arrest, no resuscitative measures will be taken. Witnessed by Pt's nurse Aleyda
--- NOTE | 2024-04-05 13:39 | PC.NURSE ---
Late entry: @ 1300 pt's daughter Tamia and grandantoinette Fletcher at bedside requested to talk to doctors regarding code status. MD Zaman at bedside
--- NOTE | 2024-04-05 13:54 | ESPR_ITS ---
<Statement entered by Keyla Ortiz MD - 04/05/24 17:34> TOTAL CC TIME: 45 MIN I saw and evaluated the patient. I reviewed the resident?s note and agree with findings and plan as documented in the resident?s note. Upon my evaluation, this patient had a high probability of imminent or life- threatening deterioration due to septic shock which required my direct attention, intervention, and personal management. This time is exclusive of time spent on procedures, which are documented separately if performed. Repeat informal bedside ultrasound by ICU team completed today. Possible hypoechoic masslike densities outside of right ventricular wall-discussed with pocket and pulley machine operator repeat echo ordered. Left ventricle appears to be improving when compared to prior echocardiogram report. Questionable takotsubo cardiomyopathy. Cryptic septic shock with 1 out of 2 MSSA positive repeat cultures thus far negative. Weaning pressors Documentation for date of: 04/05/24 Subjective Subjective Interval history: 04/03: Pt is an overnight upgrade.Pt has an rapid response called for hypotension, Pt received 1L bolus NS without improvement of the BP. Pt was upgraded to the ICU for pressor support and started on levophed. Pt. 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 overnight pt. has 300 cc of urine output. 04/04: no acute overnight events. Pt. urine output was about 130cc and 1 BM overnight. Pt. continues to require higher rate of levophed , midrodrine 10 TIDdespite that she required dobutamine this morning as pt's MAP continues to drop below 60. Pt is alert, awake and is able to follow commands. on cheetah today pt. was not fluid responsive with TPR 1989, SVI 27, CI 1.8. 04/05: no acute over night events. Pt. is saturating on 5L O2 via oxymask. Pt is alert and awake. Pt. MAP continues to improve, currently above 80 therefore will discontinue dobutamine and will titrate down vasopressin and levophed. Bedside echo showed improved contractility of the ventricles therefore we will repeat echo to see if there is improvement from previous EF of 35-40%. Pt's family at bedside asked to change code status from full code to DNR as they do not want her to go through additional pain and suffering if she was to have cardiac or respiratory arrest. Per dietitian recommendations we have added thiamine for 7days and multivitamins day to her dysphagia 2 diet. Exam Vital Signs Temp Pulse Resp BP Pulse Ox O2 Del Method O2 Flow Rate 97.6 F 62 15 126/73 100 Nasal Cannula 6 04/05/24 12:17 04/05/24 13:31 04/05/24 13:31 04/05/24 13:31 04/05/24 13:31 04/04/24 20:00 04/05/24 06:11 Narrative Exam GENERAL: Awake, elderly thin non female, Not in acute distress, is able to follow command NEURO: alert, motor deficit in the right and upper and lower extremities HEENT: Atraumatic, Normocephalic. mucous membranes moist. Eyes open, symmetrical, & clear HEART: Faint Heart Sounds LUNGS: Clear to auscultation with no wheezing or crackles. ABDOMEN: soft, non-distended, non-tender, bowel sounds heard, no guarding or rebound tenderness SKIN: 2 sacral ulcers, smaller one appears to be stage 2 and larger one appears to be stage 3 EXTREMITIES: 3+ pitting edema bilaterally on LE, non pitting edema on right hand, pedal pulses palpated, contracted lower extremities Objective Labs 04/05/24 04:51 04/05/24 04:51 Labs: Laboratory Results - last 24 hr 04/04/24 04/05/24 13:52 04:51 WBC 9.2 RBC 2.73 L Hgb 8.5 L D Hct 24.6 L MCV 90 MCH 31.1 MCHC 34.6 RDW Std Deviation 46.5 H Plt Count 160 D Neut % (Auto) 87 H Lymph % (Auto) 9 L [place] % (Auto) 3 Eos % (Auto) 0 Baso % (Auto) 0 Neut # (Auto) 8.0 H Lymph # (Auto) 0.8 L [place] # (Auto) 0.2 Eos # (Auto) 0.0 Baso # (Auto) 0.0 Immature Gran # (Auto) 0.06 H Absolute Nucleated RBC 0.00 Immature Gran % 1 H Nucleated RBC % 0 VBG pH 7.43 VBG pCO2 19 L VBG pO2 136 H VBG O2 Sat (Kathy) 100 H VBG Base Excess -10 L Sodium 139 Potassium 3.4 D Chloride 108 H Carbon Dioxide 20.9 Anion Gap 10 BUN 12 Creatinine 0.4 L Estim Creat Clear Calc 70.6 eGFR > 60 BUN/Creatinine Ratio 30 H Glucose 157 H Calculated Osmolality 280 Calcium 8.1 L Corrected Calcium 9.4 Phosphorus 2.1 L Magnesium 1.6 Total Bilirubin 0.2 L AST 65 H ALT 35 Alkaline Phosphatase 314 H D Total Protein 4.9 L Albumin 2.4 L Globulin 2.5 Albumin/Globulin Ratio 1.0 L ABG Interpretation ABG results: 03/30/24 04/01/24 04/01/24 13:55 10:25 17:20 ABG pH 7.48 H 7.52 H 7.47 H ABG pCO2 34 31 L 34 ABG pO2 300 H 155 H D 36 L* D ABG HCO3 25 25 25 ABG O2 Saturation 100 H 100 H 70 L ABG Base Excess 2 3 1 VBG pH VBG pCO2 VBG pO2 VBG Base Excess 04/04/24 13:52 ABG pH ABG pCO2 ABG pO2 ABG HCO3 ABG O2 Saturation ABG Base Excess VBG pH 7.43 VBG pCO2 19 L VBG pO2 136 H VBG Base Excess -10 L Quality Measures Quality Measures stroke Suspected type of Stroke: Unknown at this time Tenecteplase given: Reason(s) Tenecteplase not given: Outside the time window not given Rehab services: PT evaluation ordered (not ordered, as Pt is in ICU ) VTE Prophylaxis: pharmaceutical Antithrombotic by day 2:: not indicated (describe) Statin ordered: >75 y/o moderate or high intensity dose Anticoagulation ordered for A- fib or flutter (current or hx): not indicated Advance care planning discussed with:: patient Assessment & Plan Assessment Current Active Medications: Generic Name Dose Route Start Last Admin Trade Name Freq PRN Reason Stop Dose Admin Acetaminophen 650 mg 03/30/24 16:17 Acetaminophen 325 Mg Tablet PO 04/29/24 16:16 Q6H PRN Fever >101.5 Acetaminophen 650 mg 03/30/24 16:17 04/01/24 19:17 Acetaminophen 325 Mg Tablet PO 04/29/24 16:16 650 mg Q6H PRN Administration PAIN SCALE 1-3 (mild Aspirin 81 mg 04/01/24 18:45 04/05/24 08:49 Aspirin 81 Mg Chew PO 05/01/24 18:44 81 mg QDAY ROGER Administration Atorvastatin Calcium 80 mg 04/01/24 21:00 04/04/24 21:28 Atorvastatin Calcium 20 Mg Tablet PO 05/01/24 20:59 80 mg HS ROGER Administration Bisacodyl 10 mg 03/30/24 19:00 04/05/24 08:50 Bisacodyl 10 Mg Supp CO 04/29/24 18:59 10 mg QDAY ROGER Administration Protocol Calcium Carbonate 600 mg 04/03/24 09:45 04/05/24 08:49 Calcium Carbonate 600 Mg Tablet NG 05/03/24 09:44 600 mg QDAY ROGER Administration Dextrose 25 ml 03/30/24 16:22 04/01/24 04:58 Dextrose 50%-Water Inj 50 Ml Syringe IV 04/29/24 16:21 25 ml Q15MIN PRN Administration BG 50-70 responsive npo pt Dextrose 50 ml 03/30/24 16:22 Dextrose 50%-Water Inj 50 Ml Syringe IV 04/29/24 16:21 Q15MIN PRN BG <50 OR BG <70 & pt unresponsive Enoxaparin Sodium 40 mg 04/04/24 09:00 04/05/24 08:49 Enoxaparin Sod Inj 40 Mg/0.4 Ml Syringe SC 04/18/24 08:59 40 mg QDAY ROGER Administration Folic Acid 1 mg 03/30/24 16:45 04/05/24 08:53 Folic Acid Inj 1 Mg/0.2 Ml IVP 04/29/24 16:44 1 mg QDAY ROGER Administration Glucagon 1 mg 03/30/24 16:22 Glucagon Inj 1 Mg Vial IM Q15MIN PRN BG <70, and no IV access Ceftriaxone Sodium 2 gm/ 100 mls @ 200 mls/hr 04/02/24 09:00 04/05/24 08:50 Sodium Chloride IV 04/08/24 08:59 200 mls/hr QDAY ROGER Administration Azithromycin 500 mg/ Sodium 250 mls @ 250 mls/hr 04/02/24 09:00 04/05/24 08:54 Chloride IV 04/08/24 08:59 250 mls/hr QDAY ROGER Administration Norepinephrine/Dextrose 8 mg in 250 mls @ 3.836 mls/hr 04/02/24 20:07 04/05/24 07:00 Levophed In D5w 8mg/250ml IV 05/02/24 20:06 0.28 mcg/kg/min .Q24H PRN 21.48 mls/hr PER protocol Titration Protocol 0.05 MCG/KG/MIN Dobutamine HCl/Dextrose 500 mg in 250 mls @ 1.38 mls/hr 04/04/24 09:31 04/05/24 09:15 Dobutrex/D5w Ivpb IV 05/04/24 09:30 3 mcg/kg/min .Q24H PRN 4.14 mls/hr PER PROTOCOL Titration Protocol 1 MCG/KG/MIN Vasopressin/Sodium Chloride 20 unit in 100 mls @ 9 mls/hr 04/04/24 12:19 04/05/24 09:43 Vasostrict/Ns Ivpb IV 05/04/24 12:18 0.03 unit/min .Q11H7M PRN 9 mls/hr PER PROTOCOL Administration Protocol 0.03 UNIT/MIN Insulin Human Lispro 0 unit 03/30/24 17:00 04/05/24 12:25 Insulin Lispro (Admelog) 1 Unit/0.01 Ml Unit SC 04/29/24 16:59 1 unit Q6HR ROGER Administration Protocol Levothyroxine Sodium 75 mcg 04/04/24 06:00 04/05/24 06:19 Levothyroxine Sodium 25 Mcg Tablet NG 05/04/24 05:59 75 mcg ACBR ROGER Administration Midodrine 10 mg 04/03/24 14:00 04/05/24 06:19 Midodrine 5 Mg Tablet NG 05/03/24 13:59 10 mg TID ROGER Administration Ondansetron HCl 4 mg 03/30/24 16:17 Ondansetron Inj 2 Mg/Ml Inj 2 Ml IV 04/29/24 16:16 Q6H PRN NAUSEA OR VOMITING Protocol Pantoprazole Sodium 40 mg 03/30/24 16:30 04/05/24 08:53 Pantoprazole Inj 40 Mg Vial IVP 04/29/24 16:29 40 mg QDAY ROGER Administration Thiamine HCl 100 mg 03/30/24 16:45 04/05/24 09:04 Thiamine Inj 100 Mg/Ml Vial 2 Ml IVP 04/29/24 16:44 100 mg QDAY ROGER Administration Plan Ms. 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 Per chart review and patient's daughter at bedside states patient have been declining physical activity for the past 2 months. She used to be able to walk herself to the restroom, feed herself, and walk around using walker and be able to communicate. But she has become increasingly depressed and bedbound for the last 1 week she has been having urinary incontinence and decreased oral intake. Patient was found unresponsive for which the family called ambulance. In the ED her blood glucose was found to be 13 she received D10 and her blood glucose improved and as well as her mentation. Patient was admitted to the hospital for possible PEG tube placement and treatment of bilateral pneumonia. On 04/02/2024 patient had a rapid response called for blood pressure of 75/44 maintaining MAP below 65 patient was given 1L bolus of normal saline without improvement of blood pressure and MAP; patient was upgraded to the ICU and Levophed was started. Neuro #Acute metabolic encephalopathy secondary to hypoglycemia -resolved -On admission patient's was altered with blood glucose was 13 and patient received D10 and her mentation improved to baseline -Patient's daughter have reported that for the past 2 months patient has become increasingly less physically active #History of CVA - Pt has a stroke in 2021 with residual deficit on the right side and global aphasia Cardio #Shock - Cardiognic shock vs. septic shock? -on admission pts. BC on 03/30 showed staph bacteremia in 1 of the 2 cultures, Pt has been on antibiotics -started levophed started on 04/03- -midodrine 10mg TID -Dobutamine drip started on 04/04 and D/c'd on 04/05 -vasopressin started on 04/04 and titrating it down as able -bedside ultrasound was done, findings were constant with improved contractility and EF. Pt. may have developed takotsubo cardiomyopathy. Per Pt.'s daughter Tamia her (their father) sent her from [place] recently because he was unable to take care of her. And he does not communicate with her which has caused the Pt. to become increasingly withdrawn and poor oral intake. repeat echo is ordered to determine if there is improvement in EF -[facility] findings are consistent with not fluid responsive on 04/04 #Newly diagnosed CHF -EF 35-40 on echo 03/31 -In light of shock, will hold guideline directed medical therapy and will resume when able #Hx HTN - home meds on hold #. HLD - resumed home atorvastatin #Troponinemia- resolved -on admission ? peaked at 1.033, without ST or T wave changes on EKG Pul #Pneumonia -Repeat chest x-ray today showed worsening diffuse significant bilateral pneumonia -on admission Pts. WBC was 15.2 --> 9.2 -Patient is on azithromycin and Rocephin 04/02- ID #Pneumonia #Bacteremia -Blood cultures on 03/30/2024-grew Staph aureus on 1 of 2 -Blood cultures since then, urine cultures and MRSA - negative -On antibiotics azithromycin and Rocephin -repeat blood cultures are ordered GI #Severe Malnutrition -Failure to thrive- patient's BMI is <22 and age >70 -Per patient's daughter, patient has poor oral intake and for 2 months was hiding food under the couch and bed and they often have to feed her with a syringe -likely secondary to poor oral intake due to depression -Per [employer] recommendations- Glucerna 1.2 at 10 ml/hr , diet dysphagia 1 ordered, Thiamine 100mg/day for 7 days, Multivitamins ordered # NG tube - resume trickle feeds at 10cc with no water flush #Hypoalbuminemia -Albumin is 2.4- likely secondary to nutritional deficiency -Will continue to treat underlying cause by giving adequate nutrition -Colloid fluid bolus given on 04/03 Endo #History of type 2 diabetes -Hemoglobin A1c on 1211 is 6.1, blood glucose 110 -Insulin sliding scale ordered #History of hypothyroidism -TSH 17.5, free T4 0.44 during this admission -Will increase home levothyroxine from 50 mcg to 75 mcg through NG tube Renal #no active problems Heme #Acute anemia -Hemoglobin 8.5 and hematocrit 24.6 -no signs of active bleeding -will continue to monitor with daily CBC -will transfuse with pRBCs if Hgb <7 DVT prophylaxis-Lovenox Skin #Sacral ulcer -Patient has 2 ulcers in the sacrum -Smaller 1 appears to be stage II and the bigger one appears to be stage III -Frequent pressure redistribution -Wound care is ordered Disposition: ICU for pressor support DVT Prophylaxis: enoxaparin 40mg Qdaily GI Prophylaxis: Pantoprozol-40 IV Qday Diet: NG glucerna 1.2 at 10ml/hr, dysphagia 1 diet ordered Code status: Full Assessment and plan discussed with my attending physician Dr. Diana Zaman (PGY-1)- Internal medicine resident Attending Provider Attestation/Addendum Patient seen and examined with resident. Agree with above. In brief this is 79-year-old female who was brought to the ICU for multifactorial shock. She was seen in conjunction with the cardiology service today. Cheetah was placed for additional hemodynamic monitoring as well as a central line. An SVO 2 was obtained and we will transduce his CVP. Patient's etiology of shock appears to be more cardiogenic at this point in time then distributive. This afternoon she has had a significant decompensation with rapidly escalating Levophed requirements. She is currently at 0.5 mics of Levophed as well as vasopressin. A 1 point in the afternoon she required 2 Amps of epi for systolic blood pressure in the 50s and 60s not responding to rapid upward titration of the Levophed and she was periarrest. She continues on broad-spectrum antibiotics to cover for sepsis with source being her pneumonia. Blood cultures from the 10th did grow MSSA however no additional cultures have been positive. Family discussion was held and at this point in time the family would prefer to keep her full code. She is being treated for what is felt to be a primary cardiogenic etiology with dobutamine, Levophed, vasopressin and diuresis. At this point in time cardiology does not feel that there is any thing additional what they have to offer at this point in time. Recommendations are appreciated. Case discussed with ICU team Labs, imaging and records reviewed Approximately 65 critical care minutes required for evaluation, exam, review, intervention, discussion formulation of plan of care for this critically ill patient with shock on vasopressors.
[2024-04-05] MEDS: Norepinephrine/D5W 8mg/250ml 8 MG/250 ML BAG 6.137 MG IV (14:34)
--- NOTE | 2024-04-05 16:07 | PC.SS ---
Update: patient's code status was changed from Full code to DNR/DNI.
--- NOTE | 2024-04-05 17:37 | PD.IMPROG ---
Documentation for date of: 04/05/24 Subjective Subjective Interval history: Family has decided to have the patient DNR/DNI Family also decided the patient does need a PEG tube at the moment the PEG to be placed once the patient is out of ICU to see if she can make it which is understandable Exam Vital Signs Temp Pulse Resp BP Pulse Ox O2 Del Method O2 Flow Rate 97.6 F 70 13 81/50 L 100 Nasal Cannula 6 04/05/24 16:00 04/05/24 16:00 04/05/24 16:00 04/05/24 16:00 04/05/24 16:00 04/04/24 20:00 04/05/24 06:11 Routine Respiratory Exam Comments: Scattered rhonchi Routine Abdominal Exam Comments: Scaphoid abdomen Objective Labs 04/05/24 04:51 04/05/24 04:51 Labs: Laboratory Results - last 24 hr 04/05/24 04:51 WBC 9.2 RBC 2.73 L Hgb 8.5 L D Hct 24.6 L MCV 90 MCH 31.1 MCHC 34.6 RDW Std Deviation 46.5 H Plt Count 160 D Neut % (Auto) 87 H Lymph % (Auto) 9 L [place] % (Auto) 3 Eos % (Auto) 0 Baso % (Auto) 0 Neut # (Auto) 8.0 H Lymph # (Auto) 0.8 L [place] # (Auto) 0.2 Eos # (Auto) 0.0 Baso # (Auto) 0.0 Immature Gran # (Auto) 0.06 H Absolute Nucleated RBC 0.00 Immature Gran % 1 H Nucleated RBC % 0 Sodium 139 Potassium 3.4 D Chloride 108 H Carbon Dioxide 20.9 Anion Gap 10 BUN 12 Creatinine 0.4 L Estim Creat Clear Calc 70.6 eGFR > 60 BUN/Creatinine Ratio 30 H Glucose 157 H Calculated Osmolality 280 Calcium 8.1 L Corrected Calcium 9.4 Phosphorus 2.1 L Magnesium 1.6 Total Bilirubin 0.2 L AST 65 H ALT 35 Alkaline Phosphatase 314 H D Total Protein 4.9 L Albumin 2.4 L Globulin 2.5 Albumin/Globulin Ratio 1.0 L Impressions Impression: # Failure to thrive # Altered mental status Continue current management Recommend PEG placement sooner than later ABG Interpretation ABG results: 03/30/24 04/01/24 04/01/24 13:55 10:25 17:20 ABG pH 7.48 H 7.52 H 7.47 H ABG pCO2 34 31 L 34 ABG pO2 300 H 155 H D 36 L* D ABG HCO3 25 25 25 ABG O2 Saturation 100 H 100 H 70 L ABG Base Excess 2 3 1 VBG pH VBG pCO2 VBG pO2 VBG Base Excess 04/04/24 13:52 ABG pH ABG pCO2 ABG pO2 ABG HCO3 ABG O2 Saturation ABG Base Excess VBG pH 7.43 VBG pCO2 19 L VBG pO2 136 H VBG Base Excess -10 L Assessment & Plan A&P Narrative 79-year-old female with past medical history of hypertension, hyperlipidemia, 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 1. Acute decompensated systolic heart failure (EF 35 to 40%) 2. NSTEMI 3. Essential hypertension ?Given patient's elevated troponins which peaked at 1.033 and down trended this is most likely NSTEMI type II likely demand ischemia ?Given patient is a poor candidate for heart catheterization at this time due to other comorbidities we will treat medically for now ?Patient's blood pressure has been under control during her hospital stay. ?Echo done on 03/31/2024 has had the following findings: Negative bubble study. TTE is suboptimal to rule out PFO or ASD. Consider GLORIA if high clincial suspicion. Normal LV size. Moderate to severe LV systolic dysfunction with an EF of around 35 to 40%.Severe hypokinesis of the mid to apical septum, apical anterior and apical anterolateral segments and akinetic apex indicating possible LAD involvement versus Takotsubo syndrome. Difficult to comment on apical thrombus due to lack of definity. Normal RV size and function. Mild TR Moderate MAC. Mild MR Mild AV sclerosis without stenosis with mild AI. ?Patient most likely has some underlying CAD, but given multiple comorbidities and current clinical status she is not a good candidate for heart catheterization and family is aware of this and are in agreement. Plan: ?Recommend to treat patient as NSTEMI ?No need to trend troponins ?Okay to start heparin drip if no contraindications as well as aspirin and high intensity statin ? Given patient's multiple comorbidities and history of decline in health would recommend primary care team to have goals of care discussions with patient's family. 4. Acute encephalopathy 5. Hypoglycemia 6. DM2 ?Patient has been taking glyburide 5 mg as well as metformin 625 mg 3 times daily which could have precipitated his patient hypoglycemia in the event that she has been having poor oral intake. ? Continue current management as per primary care team 7. Failure to thrive ?Patient may benefit from PEG tube placement as she has been having poor oral intake for the past few weeks. ? Recommend to follow GI recommendations ? Continue current management as per primary care team 8. CVA with residual right-sided deficits 9. Hyperlipidemia ? Continue current management as primary care team Cardiology was consulted because of the abnormal echocardiogram which showed moderate to severe LV dysfunction with an EF of around 35 to 40%. Severe hypokinesis of the mid to apical septum, apical anterior and apical anterolateral segments as well as secondary to Indicating possible LAD involvement versus Takotsubo syndrome. RV size and function was normal and it showed mild valvular abnormalities. During my examination patient did not appear to be any fluid overload and patient is nonverbal bedbound and has severe contractures of all extremities and unable to provide any kind of history. VS per the daughter as well as the granddaughter were at the bedside patient has been like this for the past few months that she has not been able to eat and she is actually being taken for a PEG tube placement today and because of her poor nutrition patient appears cachectic. Explained to the family in the detail about a possible syndrome and the possible LAD disease given echocardiogram findings but as per the family she never complained of any chest pain or chest pressure as she does show in the sign language whenever something hurts her. Explained to the family that it would be futile to pursue the further workup of her new onset severe systolic congestive heart failure. The regional wall motion abnormalities involving the LAD territory as it could be well Takotsubo syndrome given her recent hospitalization. Patient is not an ideal candidate for any kind of cardiac catheterization as she cannot straighten any of her extremities because of the significant cramps factors. Also patient is bedbound, nonverbal with multiple comorbidities as mentioned above and recommend only medical treatment for now. Recommend aggressive medical treatment with goal-directed medical therapy with beta-devon, Entresto as well as spironolactone based on the blood pressure as well as the kidney function. If patient can tolerate patient should be on aspirin as well as statin high intensity. Check lipid profile TSH as well as A1c. Patient does not appear to be fluid overloaded and does not need diuretics at the present point of time. Patient actually is not eating because of dysphagia and plan for PEG tube for now. Also recommend primary team to discuss the goals of care for the patient in detail for the patient. 04/02/2024: No new complaints including any cardiac complaints. As detailed yesterday in the note plan is for aggressive medical management for her severe systolic congestive heart failure with a differential diagnosis of Takotsubo versus LAD involvement given her multiple comorbidities and the bedbound status with severe contractures and is not an appropriate candidate for cardiac catheterization as she will not be able to lie flat on the Slate Splitting Supervisor table. The procedure would only be futile considering the above and recommend primary team to discuss the goals of care and also address the CODE STATUS for the patient Patient had an MRI performed the did not show any acute infarcts in showed prominent moderate chronic white matter changes. [place] encephalopathy mostly secondary to the hypoglycemia and sepsis as per the neurology. GI team following the patient and planning for PEG tube placement given her failure. Colonoscopy also planned by GI for CT scan abdominal pelvis showing thickening of the rectal wall as well as stool impaction increased stool burden. Patient also found to have 90% stenosis of the bifurcation of the right carotid artery which will be treated medically as she is not considered a candidate for carotid endarterectomy. Management of rest of the medical conditions as per primary team and other consultants. Thank you for the consult and allowing me to participate in the care of the patient. Cardiology will continue to follow. Rao Dodson M.D. Interventional Cardiology Time Spent With Patient Time: Total time spent is greater than 50% in coordination of care (as documented) at patient's floor/unit and/or counseling patient:
[2024-04-05] MEDS: MULTIVITAMIN 15 ML UDC GT (17:49)
--- NOTE | 2024-04-05 18:15 | PC.NURSE ---
Patient refused all oral intake
[2024-04-05] MEDS: ATORVASTATIN CALCIUM 20 MG TABLET 80 MG PO (21:03)
[2024-04-06] VITALS (121 sets, daily range): BP systolic 69–124; BP diastolic 39–84; PULSE 53–90; RESP 0–24; TEMP 36.2–37; O2SAT 88–100
[2024-04-06 06:31] LABS: Basophils % (Auto) 0 % (0-2.5); Eosinophils # (Auto) 0.1 Thou/mm3 (0.0-0.5); Eosinophils % (Auto) 1 % (0-10); Hemoglobin 9.7 g/dL (12.0-16.0); Immature Granulocytes % (Auto) 1 % (0-0); Immature Granulocytes Auto 0.04 Thou/mm3 (0.00-0.00); Lymphocytes % (Auto) 12 % (10-50); Mean Corpuscular HGB Conc 34.6 g/dl (31.0-37.0); Mean Corpuscular Hemoglobin 30.7 pg (25.0-35.0); Mean Corpuscular Volume 89 fL (80-100); Monocytes # (Auto) 0.2 Thou/mm3 (0.0-0.8); Monocytes % (Auto) 2 % (0-12); Neutrophils # (Auto) 6.8 Thou/mm3 (1.8-7.7); Neutrophils % (Auto) 84 % (37-80); Nucleated Red Blood Cell % 0 /100 WBC (0); Platelet Count 172 Thou/mm3 (140-440); RDW Standard Deviation 46.2 fL (36.4-46.3); Red Blood Count 3.16 Miln/mm3 (4.00-5.20)
[2024-04-06 07:30] LABS: Alanine Aminotransferase 30 U/L (10-49); Albumin, Serum 2.6 gm/dL (3.4-4.8); Alkaline Phosphatase 278 U/L (46-116); Anion Gap 7 (7-16); Aspartate Amino Transferase 51 U/L (0-34); BUN/Creatinine Ratio 18 Ratio (12-20); Bilirubin,Total 0.2 mg/dL (0.3-1.2); Blood Urea Nitrogen 9 mg/dL (9-23); Calcium 7.8 mg/dL (8.3-10.6); Calcium (Corrected) 8.9 mg/dL (8.5-10.1); Carbon Dioxide 25.6 mMol/L (20.0-31.0); Chloride 104 mMol/L (98-107); Creatinine (Component) 0.5 mg/dL (0.6-1.3); Estimated Creatinine Clearance 56.5 mL/min (>60); Globulin 2.6 gm/dL (2.3-3.5); Glucose 91 mg/dL (74-106); Magnesium 1.5 mg/dL (1.6-2.6); Osmolality,Calculated 272 (275-295); Phosphorous 1.9 mg/dL (2.4-5.1); Potassium 2.9 mMol/L (3.4-5.1); Sodium 137 mMol/L (136-145); Total Protein 5.2 gm/dL (5.7-8.2); eGFR > 60 See Note
[2024-04-06] MEDS: LEVOTHYROXINE SODIUM 25 MCG TABLET 75 MCG NG (07:39)
[2024-04-06] MEDS: MIDODRINE 5 MG TABLET 10 MG NG ×3 (07:39→21:31)
[2024-04-06] MEDS: PANTOPRAZOLE INJ 40 MG VIAL IVP (08:08)
[2024-04-06] MEDS: FOLIC ACID INJ 1 MG/0.2 ML IVP (08:08)
[2024-04-06] MEDS: CALCIUM CARBONATE 600 MG TABLET NG (08:09)
[2024-04-06] MEDS: ASPIRIN 81 MG CHEW NG (08:09)
[2024-04-06] MEDS: cefTRIAXone 2 GM in SODIUM CHLORIDE 0.9% (P) 100 ML IV (08:09)
[2024-04-06] MEDS: THIAMINE INJ 100 MG/ML VIAL 2 ML IVP (08:09)
[2024-04-06] MEDS: bisacodyL 10 MG SUPP PR (08:10)
[2024-04-06] MEDS: NAPH,KPH MBDB 1 PACKET (1.5 GM) 2 PACKET NG (08:28)
[2024-04-06] MEDS: Magnesium Sulfate 4 GM Ivpb 4 GM/50 ML BAG IV (08:28)
[2024-04-06] MEDS: MULTIVITAMIN 15 ML UDC GT (08:28)
[2024-04-06] MEDS: POT PHOS 15 mMol in NS 250 ML 15 MMOL/250 ML BAG 62.5 MMOL IV ×2 (08:29→12:43)
[2024-04-06] MEDS: ENOXAPARIN SOD INJ 40 MG/0.4 ML SYRINGE SC (08:30)
[2024-04-06] MEDS: AZITHROMYCIN INJ 500 MG in SODIUM CHLORIDE 0.9% 250 ML 250 ML 250 MG IV (09:00)
[2024-04-06] MEDS: Norepinephrine/D5W 8mg/250ml 8 MG/250 ML BAG 12.274 MG IV (09:10)
--- NOTE | 2024-04-06 09:29 | XR_ITS ---
Examination: AP chest single view TECHNIQUE: AP portable upright chest single view Exam date and time: April 06, 2024 0936 hours Comparison April 03, 2024 INDICATIONS: Pneumonia shortness of breath beginning one week ago. FINDINGS: Worsening bilateral pneumonia Layered pleural fluid bilaterally Normal heart size Orogastric tube in stomach Right internal jugular central line tip SVC satisfactory position IMPRESSION: Worsening bilateral pneumonia
--- NOTE | 2024-04-06 10:00 | ESPR_ITS ---
Documentation for date of: 04/06/24 Subjective Subjective Interval history: Patient was seen and examined at bedside this morning. Patient is clinically unchanged Patient is currently only on 1 pressor. Echo on 04/05/2024 had the following findings: Normal left ventricular size, wall thickness. Low normal systolic function. Estimated 45-50%. RV is normal in size and systolic function. The estimated RVSP, 34 mmHg. RAP 5. Moderate MAC. Mild to moderate MR. Mild sclerosis without stenosis. Mild AI. Findings showed significant improvement, but was on pressors and could indicate possible Takotsubo syndrome which could be possibly secondary to the sepsis Patient was made DNR/DNI by family yesteday as stated by ICU team. Potassium 2.9 and magnesium 1.5 today, recommend to replete potassium magnesium to keep above 4 and 2 respectively to avoid any further arrhythmias. can start patient in oral diuresis if BP allows and patient becomes fluid overloaded. Exam Vital Signs Temp Pulse Resp BP Pulse Ox O2 Del Method O2 Flow Rate 97.8 F 81 20 101/57 L 98 Nasal Cannula 2 04/06/24 04:00 04/06/24 09:10 04/06/24 06:11 04/06/24 09:10 04/06/24 06:11 04/04/24 20:00 04/06/24 06:11 Narrative Exam General:nonverbal, cachectic, temporal wasting, fragile, thin Eyes: able to trace Ears: No visible ear discharge Nose: No visible nasal discharge. Mouth/Throat: Dry mucous membranes,poor dentattion Neck: Neck supple, non-tender, no cervical lymphadenopathy. Lungs: Clear LEONEL to auscultation and percussion, No accessory muscle use. Cardio: Normal S1/S2, regular rhythm, no murmurs, no JVD Abdomen: Soft, non-tender, no palpable masses, peristalsis present, no guarding or rebound. Extremities: Symmetrical, contractures of LEONEL Wrist and LE, no peripheral edema , non-tender, peripheral pulses presents. Skin: No rashes, no lesions, warm to touch. Neuro: Could not be assessed due to patient's current condition, able to move all extremities's Objective Labs 04/06/24 05:10 04/06/24 15:19 Labs: Laboratory Results - last 24 hr 04/06/24 05:10 WBC 8.0 RBC 3.16 L Hgb 9.7 L Hct 28.0 L MCV 89 MCH 30.7 MCHC 34.6 RDW Std Deviation 46.2 Plt Count 172 Neut % (Auto) 84 H Lymph % (Auto) 12 [place] % (Auto) 2 Eos % (Auto) 1 Baso % (Auto) 0 Neut # (Auto) 6.8 Lymph # (Auto) 1.0 [place] # (Auto) 0.2 Eos # (Auto) 0.1 Baso # (Auto) 0.0 Immature Gran # (Auto) 0.04 H Absolute Nucleated RBC 0.00 Immature Gran % 1 H Nucleated RBC % 0 Sodium 137 Potassium 2.9 L D Chloride 104 Carbon Dioxide 25.6 Anion Gap 7 BUN 9 Creatinine 0.5 L Estim Creat Clear Calc 56.5 L eGFR > 60 BUN/Creatinine Ratio 18 Glucose 91 D Calculated Osmolality 272 L Calcium 7.8 L Corrected Calcium 8.9 Phosphorus 1.9 L Magnesium 1.5 L Total Bilirubin 0.2 L AST 51 H ALT 30 Alkaline Phosphatase 278 H D Total Protein 5.2 L Albumin 2.6 L Globulin 2.6 Albumin/Globulin Ratio 1.0 L ABG Interpretation ABG results: 03/30/24 04/01/24 04/01/24 13:55 10:25 17:20 ABG pH 7.48 H 7.52 H 7.47 H ABG pCO2 34 31 L 34 ABG pO2 300 H 155 H D 36 L* D ABG HCO3 25 25 25 ABG O2 Saturation 100 H 100 H 70 L ABG Base Excess 2 3 1 VBG pH VBG pCO2 VBG pO2 VBG Base Excess 04/04/24 13:52 ABG pH ABG pCO2 ABG pO2 ABG HCO3 ABG O2 Saturation ABG Base Excess VBG pH 7.43 VBG pCO2 19 L VBG pO2 136 H VBG Base Excess -10 L Quality Measures Quality Measures stroke Suspected type of Stroke: Unknown at this time Tenecteplase given: Reason(s) Tenecteplase not given: Outside the time window not given Rehab services: PT evaluation ordered VTE Prophylaxis: pharmaceutical Antithrombotic by day 2:: not indicated (describe) Statin ordered: >75 y/o moderate or high intensity dose Anticoagulation ordered for A-fib or flutter (current or hx): not indicated Advance care planning discussed with:: patient Assessment & Plan Assessment Current Active Medications: Generic Name Dose Route Start Last Admin Trade Name Chay PRN Reason Stop Dose Admin Acetaminophen 650 mg 03/30/24 16:17 Acetaminophen 325 Mg Tablet PO 04/29/24 16:16 Q6H PRN Fever >101.5 Acetaminophen 650 mg 03/30/24 16:17 04/01/24 19:17 Acetaminophen 325 Mg Tablet PO 04/29/24 16:16 650 mg Q6H PRN Administration PAIN SCALE 1-3 (mild Aspirin 81 mg 04/06/24 07:35 04/06/24 08:09 Aspirin 81 Mg Chew NG 05/01/24 18:44 81 mg QDAY ROGER Administration Atorvastatin Calcium 80 mg 04/06/24 07:35 Atorvastatin Calcium 20 Mg Tablet NG 05/01/24 20:59 HS ROGER Bisacodyl 10 mg 03/30/24 19:00 04/06/24 08:10 Bisacodyl 10 Mg Supp DC 04/29/24 18:59 10 mg QDAY ROGER Administration Protocol Calcium Carbonate 600 mg 04/03/24 09:45 04/06/24 08:09 Calcium Carbonate 600 Mg Tablet NG 05/03/24 09:44 600 mg QDAY ROGER Administration Dextrose 25 ml 03/30/24 16:22 04/01/24 04:58 Dextrose 50%-Water Inj 50 Ml Syringe IV 04/29/24 16:21 25 ml Q15MIN PRN Administration BG 50-70 responsive npo pt Dextrose 50 ml 03/30/24 16:22 Dextrose 50%-Water Inj 50 Ml Syringe IV 04/29/24 16:21 Q15MIN PRN BG <50 OR BG <70 & pt unresponsive Enoxaparin Sodium 40 mg 04/04/24 09:00 04/06/24 08:30 Enoxaparin Sod Inj 40 Mg/0.4 Ml Syringe SC 04/18/24 08:59 40 mg QDAY ROGER Administration Folic Acid 1 mg 03/30/24 16:45 04/06/24 08:08 Folic Acid Inj 1 Mg/0.2 Ml IVP 04/29/24 16:44 1 mg QDAY ROGER Administration Glucagon 1 mg 03/30/24 16:22 Glucagon Inj 1 Mg Vial IM Q15MIN PRN BG <70, and no IV access Ceftriaxone Sodium 2 gm/ 100 mls @ 200 mls/hr 04/02/24 09:00 04/06/24 08:09 Sodium Chloride IV 04/08/24 08:59 200 mls/hr QDAY ROGER Administration Azithromycin 500 mg/ Sodium 250 mls @ 250 mls/hr 04/02/24 09:00 04/06/24 09:00 Chloride IV 04/08/24 08:59 250 mls/hr QDAY ROGER Administration Norepinephrine/Dextrose 8 mg in 250 mls @ 3.836 mls/hr 04/02/24 20:07 04/06/24 09:10 Levophed In D5w 8mg/250ml IV 05/02/24 20:06 0 mcg/kg/min .Q24H PRN 0.16 mls/hr PER protocol Administration Protocol 0.05 MCG/KG/MIN Magnesium Sulfate 4 gm in 50 mls @ 12.5 mls/hr 04/06/24 08:06 04/06/24 08:28 Magnesium Sulfate Ivpb IV 04/06/24 12:05 12.5 mls/hr X1 ONE Administration Potassium Phosphate 15 mmol in 250 mls @ 62.5 mls/hr 04/06/24 08:08 04/06/24 08:29 Pot Phos 15 Mmol In Ns 250 Ml IV 04/06/24 16:07 62.5 mls/hr Q4H ROGER Administration Insulin Human Lispro 0 unit 03/30/24 17:00 04/06/24 07:40 Insulin Lispro (Admelog) 1 Unit/0.01 Ml Unit SC 04/29/24 16:59 Not Given Q6HR ROGER Protocol Levothyroxine Sodium 75 mcg 04/04/24 06:00 04/06/24 07:39 Levothyroxine Sodium 25 Mcg Tablet NG 05/04/24 05:59 75 mcg ACBR ROGER Administration Midodrine 10 mg 04/03/24 14:00 04/06/24 07:39 Midodrine 5 Mg Tablet NG 05/03/24 13:59 10 mg TID ROGER Administration Multivitamins/Minerals 15 ml 04/05/24 16:45 04/06/24 08:28 Multivitamin 15 Ml Udc GT 05/05/24 16:44 15 ml QDAY ROGER Administration Ondansetron HCl 4 mg 03/30/24 16:17 Ondansetron Inj 2 Mg/Ml Inj 2 Ml IV 04/29/24 16:16 Q6H PRN NAUSEA OR VOMITING Protocol Pantoprazole Sodium 40 mg 03/30/24 16:30 04/06/24 08:08 Pantoprazole Inj 40 Mg Vial IVP 04/29/24 16:29 40 mg QDAY ROGER Administration Thiamine HCl 100 mg 03/30/24 16:45 04/06/24 08:09 Thiamine Inj 100 Mg/Ml Vial 2 Ml IVP 04/29/24 16:44 100 mg QDAY ROGER Administration Plan 79-year-old female with past medical history of hypertension, hyperlipidemia, 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 1. Acute decompensated systolic heart failure (EF 45 to 50%) 2. NSTEMI 3. Essential hypertension ?Given patient's elevated troponins which peaked at 1.033 and down trended this is most likely NSTEMI type II likely demand ischemia ?Given patient is a poor candidate for heart catheterization at this time due to other comorbidities we will treat medically for now ?Patient's blood pressure has been under control during her hospital stay. ?Echo done on 03/31/2024 has had the following findings: Negative bubble study. TTE is suboptimal to rule out PFO or ASD. Consider GLORIA if high clincial suspicion. Normal LV size. Moderate to severe LV systolic dysfunction with an EF of around 35 to 40%.Severe hypokinesis of the mid to apical septum, apical anterior and apical anterolateral segments and akinetic apex indicating possible LAD involvement versus Takotsubo syndrome. Difficult to comment on apical thrombus due to lack of definity. Normal RV size and function. Mild TR Moderate MAC. Mild MR Mild AV sclerosis without stenosis with mild AI. ?Patient most likely has some underlying CAD, but given multiple comorbidities and current clinical status she is not a good candidate for heart catheterization and family is aware of this and are in agreement. -Patient is currently on norepinephrine at 3.836 mL/h as well as midodrine 5 mg 3 times daily ? Patient's differential diagnosis includes Takotsubo versus LAD involvement given her, but given her multiple comorbidities, bedbound status, and severe contractions she is not a good candidate for heart catheterization given that she could not lay flat on the Clinical Laboratory Manager table. Should be attributed medically for now. -Echo on 04/05/2024 had the following findings: Normal left ventricular size, wall thickness. Low normal systolic function. Estimated 45-50%. RV is normal in size and systolic function. The estimated RVSP, 34 mmHg. RAP 5. Moderate MAC. Mild to moderate MR. Mild sclerosis without stenosis. Mild AI. -Findings showed significant improvement, but was on pressors and could indicate possible Takotsubo syndrome which could be possibly secondary to the sepsis Plan: ?Recommend to hold off on goal-directed medical therapy with beta-devon, Entresto as well as spironolactone as patient is still hypotensive and requiring increase of vasopressor. -Continue pressor support for now. -can start patient in oral diuresis if BP allows and patient becomes fluid overloaded. ?Patient should also be on aspirin and statin ?No need to trend troponins 4. Acute encephalopathy 5. Hypoglycemia 6. DM2 ?Patient has been taking glyburide 5 mg as well as metformin 625 mg 3 times daily which could have precipitated his patient hypoglycemia in the event that she has been having poor oral intake. ? Continue current management as per primary care team 7. Failure to thrive ?Patient may benefit from PEG tube placement as she has been having poor oral intake for the past few weeks. ? Recommend to follow GI recommendations ? Continue current management as per primary care team 8. CVA with residual right-sided deficits 9. Hyperlipidemia ? Continue current management as primary care team Continue rest of management as per primary team. We are grateful to be able to participate in Mrs. Rudd's care. Thank you for the consult Plan of care discussed with attending Formula Technician, Dr. Ivory Iniguez MD PGY-1 Attending Provider Attestation/Addendum I have personally seen and examined the patient separately on the above date of service and discussed the plan of care with the resident. I reviewed the resident Dr. Richard consultation progress note and agree with the resident findings and plan in the note above and have also edited the documentation to reflect my findings and plan. Rao Dodson M.D. Interventional Cardiology
--- NOTE | 2024-04-06 10:26 | ESPR_ITS ---
Documentation for date of: 04/06/24 Subjective Subjective Interval history: Patient examined bedside in the ICU, no acute overnight event Exam Vital Signs Temp Pulse Resp BP Pulse Ox O2 Del Method O2 Flow Rate 97.8 F 81 20 101/57 L 98 Nasal Cannula 2 04/06/24 04:00 04/06/24 09:10 04/06/24 06:11 04/06/24 09:10 04/06/24 06:11 04/04/24 20:00 04/06/24 06:11 Constitutional Comments: More alert Routine Respiratory Exam Comments: Scattered rhonchi Routine Abdominal Exam Comments: Soft nontender Objective Labs 04/06/24 05:10 04/06/24 15:19 Labs: Laboratory Results - last 24 hr 04/06/24 05:10 WBC 8.0 RBC 3.16 L Hgb 9.7 L Hct 28.0 L MCV 89 MCH 30.7 MCHC 34.6 RDW Std Deviation 46.2 Plt Count 172 Neut % (Auto) 84 H Lymph % (Auto) 12 Will % (Auto) 2 Eos % (Auto) 1 Baso % (Auto) 0 Neut # (Auto) 6.8 Lymph # (Auto) 1.0 Will # (Auto) 0.2 Eos # (Auto) 0.1 Baso # (Auto) 0.0 Immature Gran # (Auto) 0.04 H Absolute Nucleated RBC 0.00 Immature Gran % 1 H Nucleated RBC % 0 Sodium 137 Potassium 2.9 L D Chloride 104 Carbon Dioxide 25.6 Anion Gap 7 BUN 9 Creatinine 0.5 L Estim Creat Clear Calc 56.5 L eGFR > 60 BUN/Creatinine Ratio 18 Glucose 91 D Calculated Osmolality 272 L Calcium 7.8 L Corrected Calcium 8.9 Phosphorus 1.9 L Magnesium 1.5 L Total Bilirubin 0.2 L AST 51 H ALT 30 Alkaline Phosphatase 278 H D Total Protein 5.2 L Albumin 2.6 L Globulin 2.6 Albumin/Globulin Ratio 1.0 L ABG Interpretation ABG results: 03/30/24 04/01/24 04/01/24 13:55 10:25 17:20 ABG pH 7.48 H 7.52 H 7.47 H ABG pCO2 34 31 L 34 ABG pO2 300 H 155 H D 36 L* D ABG HCO3 25 25 25 ABG O2 Saturation 100 H 100 H 70 L ABG Base Excess 2 3 1 VBG pH VBG pCO2 VBG pO2 VBG Base Excess 04/04/24 13:52 ABG pH ABG pCO2 ABG pO2 ABG HCO3 ABG O2 Saturation ABG Base Excess VBG pH 7.43 VBG pCO2 19 L VBG pO2 136 H VBG Base Excess -10 L Quality Measures Quality Measures stroke Suspected type of Stroke: Unknown at this time Tenecteplase given: Reason(s) Tenecteplase not given: Outside the time window not given Rehab services: PT evaluation ordered (icu pt bed bound ) VTE Prophylaxis: pharmaceutical Antithrombotic by day 2:: not indicated (describe) Statin ordered: >75 y/o moderate or high intensity dose Anticoagulation ordered for A- fib or flutter (current or hx): not indicated Advance care planning discussed with:: child Assessment & Plan Assessment Current Active Medications: Generic Name Dose Route Start Last Admin Trade Name Freq PRN Reason Stop Dose Admin Acetaminophen 650 mg 03/30/24 16:17 Acetaminophen 325 Mg Tablet PO 04/29/24 16:16 Q6H PRN Fever >101.5 Acetaminophen 650 mg 03/30/24 16:17 04/01/24 19:17 Acetaminophen 325 Mg Tablet PO 04/29/24 16:16 650 mg Q6H PRN Administration PAIN SCALE 1-3 (mild Aspirin 81 mg 04/06/24 07:35 04/06/24 08:09 Aspirin 81 Mg Chew NG 05/01/24 18:44 81 mg QDAY ROGER Administration Atorvastatin Calcium 80 mg 04/06/24 07:35 Atorvastatin Calcium 20 Mg Tablet NG 05/01/24 20:59 HS ROGER Bisacodyl 10 mg 03/30/24 19:00 04/06/24 08:10 Bisacodyl 10 Mg Supp [place] 04/29/24 18:59 10 mg QDAY ROGER Administration Protocol Calcium Carbonate 600 mg 04/03/24 09:45 04/06/24 08:09 Calcium Carbonate 600 Mg Tablet NG 05/03/24 09:44 600 mg QDAY ROGER Administration Dextrose 25 ml 03/30/24 16:22 04/01/24 04:58 Dextrose 50%-Water Inj 50 Ml Syringe IV 04/29/24 16:21 25 ml Q15MIN PRN Administration BG 50-70 responsive npo pt Dextrose 50 ml 03/30/24 16:22 Dextrose 50%-Water Inj 50 Ml Syringe IV 04/29/24 16:21 Q15MIN PRN BG <50 OR BG <70 & pt unresponsive Enoxaparin Sodium 40 mg 04/04/24 09:00 04/06/24 08:30 Enoxaparin Sod Inj 40 Mg/0.4 Ml Syringe SC 04/18/24 08:59 40 mg QDAY ROGER Administration Folic Acid 1 mg 03/30/24 16:45 04/06/24 08:08 Folic Acid Inj 1 Mg/0.2 Ml IVP 04/29/24 16:44 1 mg QDAY ROGER Administration Glucagon 1 mg 03/30/24 16:22 Glucagon Inj 1 Mg Vial IM Q15MIN PRN BG <70, and no IV access Ceftriaxone Sodium 2 gm/ 100 mls @ 200 mls/hr 04/02/24 09:00 04/06/24 08:09 Sodium Chloride IV 04/08/24 08:59 200 mls/hr QDAY ROGER Administration Azithromycin 500 mg/ Sodium 250 mls @ 250 mls/hr 04/02/24 09:00 04/06/24 09:00 Chloride IV 04/08/24 08:59 250 mls/hr QDAY ROGER Administration Norepinephrine/Dextrose 8 mg in 250 mls @ 3.836 mls/hr 04/02/24 20:07 04/06/24 09:10 Levophed In D5w 8mg/250ml IV 05/02/24 20:06 0 mcg/kg/min .Q24H PRN 0.16 mls/hr PER protocol Administration Protocol 0.05 MCG/KG/MIN Magnesium Sulfate 4 gm in 50 mls @ 12.5 mls/hr 04/06/24 08:06 04/06/24 08:28 Magnesium Sulfate Ivpb IV 04/06/24 12:05 12.5 mls/hr X1 ONE Administration Potassium Phosphate 15 mmol in 250 mls @ 62.5 mls/hr 04/06/24 08:08 04/06/24 08:29 Pot Phos 15 Mmol In Ns 250 Ml IV 04/06/24 16:07 62.5 mls/hr Q4H ROGER Administration Insulin Human Lispro 0 unit 03/30/24 17:00 04/06/24 07:40 Insulin Lispro (Admelog) 1 Unit/0.01 Ml Unit SC 01/09/25 16:59 Not Given Q6HR ROGER Protocol Levothyroxine Sodium 75 mcg 04/04/24 06:00 04/06/24 07:39 Levothyroxine Sodium 25 Mcg Tablet NG 05/04/24 05:59 75 mcg ACBR ROGER Administration Midodrine 10 mg 04/03/24 14:00 04/06/24 07:39 Midodrine 5 Mg Tablet NG 05/03/24 13:59 10 mg TID ROGER Administration Multivitamins/Minerals 15 ml 04/05/24 16:45 04/06/24 08:28 Multivitamin 15 Ml Udc GT 05/05/24 16:44 15 ml QDAY ROGER Administration Ondansetron HCl 4 mg 03/30/24 16:17 Ondansetron Inj 2 Mg/Ml Inj 2 Ml IV 04/29/24 16:16 Q6H PRN NAUSEA OR VOMITING Protocol Pantoprazole Sodium 40 mg 03/30/24 16:30 04/06/24 08:08 Pantoprazole Inj 40 Mg Vial IVP 04/29/24 16:29 40 mg QDAY ROGER Administration Thiamine HCl 100 mg 03/30/24 16:45 04/06/24 08:09 Thiamine Inj 100 Mg/Ml Vial 2 Ml IVP 04/29/24 16:44 100 mg QDAY ROGER Administration Plan 79 yo female with PMH of 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 Per daughter patient has been aphasic since last stroke, however she was able to walk with a walker and eat by herself until aproximately 2 months ago where she started progressively declining, decreasing oral intake, less active. The day of admission around 3am patient was found by daughter unresponsive and called EMS. On arrival patient was found with GCS of 3 glucose measured was 13, she was given D10 and repeat BS was 96. #Acute metabolic encephalopathy, improving -Likely in the setting of hypoglycemia and sepsis. -Head CT was negative for Negative for acute hemorrhage, mass effect or midline shift. Head/Neck CTA showed 90% plus stenosis right carotid bifurcation proximal right internal carotid artery, No cerebral large vessel arterial occlusions. -MRI brain confirmed no acute infarction, prominent moderate chronic white matter changes. -Echocardiogram:Negative bubble study. #90%right stenosis internal carotid Patient not candidate for endarterectomy -Recommend start dual antiplatelet after PEG tube placement -Continue atorvastatin Patient's care discussed with attending physician, Dr Oumou Em MD PGY3 Attending Provider Attestation/Addendum I independently reviewed the patient's chart and I agree with resident's findings, assessment and plan of care. Will continue with the current management. Her prognosis is poor.
[2024-04-06] MEDS: INSULIN LISPRO (AdmeLOG) 1 UNIT/0.01 ML UNIT SC (11:39)
--- NOTE | 2024-04-06 12:03 | ESPR_ITS ---
<Statement entered by Keyla Ortiz MD - 04/07/24 08:44> TOTAL CC TIME: 45 MIN I saw and evaluated the patient. I reviewed the resident?s note and agree with findings and plan as documented in the resident?s note. Upon my evaluation, this patient had a high probability of imminent or life- threatening deterioration due to septic shock which required my direct attention, intervention, and personal management. This time is exclusive of time spent on procedures, which are documented separately if performed. No fevers noted and repeat blood cultures remain negative Repeat echocardiogram shows improved LV function Remains on appropriate antibiotic therapy however still requiring pressors Continue full supportive care Documentation for date of: 04/06/24 Subjective Subjective Interval history: 04/03: Pt is an overnight upgrade.Pt has an rapid response called for hypotension, Pt received 1L bolus NS without improvement of the BP. Pt was upgraded to the ICU for pressor support and started on levophed. Pt. 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 overnight pt. has 300 cc of urine output. 04/04: no acute overnight events. Pt. urine output was about 130cc and 1 BM overnight. Pt. continues to require higher rate of levophed , midrodrine 10 TIDdespite that she required dobutamine this morning as pt's MAP continues to drop below 60. Pt is alert, awake and is able to follow commands. on cheetah today pt. was not fluid responsive with TPR 1990, SVI 27, CI 1.8. 04/05: no acute over night events. Pt. is saturating on 5L O2 via oxymask. Pt is alert and awake. Pt. MAP continues to improve, currently above 80 therefore will discontinue dobutamine and will titrate down vasopressin and levophed. Bedside echo showed improved contractility of the ventricles therefore we will repeat echo to see if there is improvement from previous EF of 35-40%. Pt's family at bedside asked to change code status from full code to DNR as they do not want her to go through additional pain and suffering if she was to have cardiac or respiratory arrest. Per dietitian recommendations we have added thiamine for 7days and multivitamins day to her dysphagia 2 diet. 04/06: No acute overnight events. Patient is alert, and awake she is able to follow commands. Patient is saturating on 2 L of oxygen via oxy mask. Patient has developed a productive cough, but is afebrile and no leukocytosis. Will repeat chest x-rays. Patient also has been having very small bowel movement, for which we will order senna. Patient's diet was advanced to blenderized however she is holding onto the food in her mouth and not swallowing therefore will DC the blenderized oral diet to prevent aspiration. we will continue tube feeds via NG and increase to 20ml/h and will follow dietitian recommendations. Exam Vital Signs Temp Pulse Resp BP Pulse Ox O2 Del Method O2 Flow Rate 98.6 F 65 15 102/59 L 94 L Nasal Cannula 2 04/06/24 08:00 04/06/24 11:00 04/06/24 11:00 04/06/24 11:00 04/06/24 11:00 04/04/24 20:00 04/06/24 06:11 Narrative Exam GENERAL: Awake, elderly thin non female, Not in acute distress, is able to follow command NEURO: alert, motor deficit in the right and upper and lower extremities HEENT: Atraumatic, Normocephalic. mucous membranes moist. Eyes open, symmetrical, & clear HEART: Faint Heart Sounds LUNGS: Clear to auscultation with no wheezing or crackles. ABDOMEN: soft, non-distended, non-tender, bowel sounds heard, no guarding or rebound tenderness SKIN: 2 sacral ulcers, smaller one appears to be stage 2 and larger one appears to be stage 3 EXTREMITIES: 1+ pitting edema bilaterally on LE, non pitting edema on right hand, pedal pulses palpated, contracted lower extremities Objective Labs 04/06/24 05:10 04/06/24 15:19 Labs: Laboratory Results - last 24 hr 04/06/24 05:10 WBC 8.0 RBC 3.16 L Hgb 9.7 L Hct 28.0 L MCV 89 MCH 30.7 MCHC 34.6 RDW Std Deviation 46.2 Plt Count 172 Neut % (Auto) 84 H Lymph % (Auto) 12 Boundary % (Auto) 2 Eos % (Auto) 1 Baso % (Auto) 0 Neut # (Auto) 6.8 Lymph # (Auto) 1.0 Boundary # (Auto) 0.2 Eos # (Auto) 0.1 Baso # (Auto) 0.0 Immature Gran # (Auto) 0.04 H Absolute Nucleated RBC 0.00 Immature Gran % 1 H Nucleated RBC % 0 Sodium 137 Potassium 2.9 L D Chloride 104 Carbon Dioxide 25.6 Anion Gap 7 BUN 9 Creatinine 0.5 L Estim Creat Clear Calc 56.5 L eGFR > 60 BUN/Creatinine Ratio 18 Glucose 91 D Calculated Osmolality 272 L Calcium 7.8 L Corrected Calcium 8.9 Phosphorus 1.9 L Magnesium 1.5 L Total Bilirubin 0.2 L AST 51 H ALT 30 Alkaline Phosphatase 278 H D Total Protein 5.2 L Albumin 2.6 L Globulin 2.6 Albumin/Globulin Ratio 1.0 L ABG Interpretation ABG results: 03/30/24 04/01/24 04/01/24 13:55 10:25 17:20 ABG pH 7.48 H 7.52 H 7.47 H ABG pCO2 34 31 L 34 ABG pO2 300 H 155 H D 36 L* D ABG HCO3 25 25 25 ABG O2 Saturation 100 H 100 H 70 L ABG Base Excess 2 3 1 VBG pH VBG pCO2 VBG pO2 VBG Base Excess 04/04/24 13:52 ABG pH ABG pCO2 ABG pO2 ABG HCO3 ABG O2 Saturation ABG Base Excess VBG pH 7.43 VBG pCO2 19 L VBG pO2 136 H VBG Base Excess -10 L Quality Measures Quality Measures stroke Suspected type of Stroke: Unknown at this time Tenecteplase given: Reason(s) Tenecteplase not given: Outside the time window not given Rehab services: PT evaluation ordered (not ordered, as Pt. is in ICU on pressors ) VTE Prophylaxis: pharmaceutical Antithrombotic by day 2:: not indicated (describe) Statin ordered: >75 y/o moderate or high intensity dose Anticoagulation ordered for A-fib or flutter (current or hx): not indicated Advance care planning discussed with:: patient Assessment & Plan Assessment Current Active Medications: Generic Name Dose Route Start Last Admin Trade Name Freq PRN Reason Stop Dose Admin Acetaminophen 650 mg 03/30/24 16:17 Acetaminophen 325 Mg Tablet PO 04/29/24 16:16 Q6H PRN Fever >101.5 Acetaminophen 650 mg 03/30/24 16:17 04/01/24 19:17 Acetaminophen 325 Mg Tablet PO 04/29/24 16:16 650 mg Q6H PRN Administration PAIN SCALE 1-3 (mild Aspirin 81 mg 04/06/24 07:35 04/06/24 08:09 Aspirin 81 Mg Chew NG 05/01/24 18:44 81 mg QDAY ROGER Administration Atorvastatin Calcium 80 mg 04/06/24 07:35 Atorvastatin Calcium 20 Mg Tablet NG 05/01/24 20:59 HS ROGER Bisacodyl 10 mg 03/30/24 19:00 04/06/24 08:10 Bisacodyl 10 Mg Supp [place] 04/29/24 18:59 10 mg QDAY ROGER Administration Protocol Calcium Carbonate 600 mg 04/03/24 09:45 04/06/24 08:09 Calcium Carbonate 600 Mg Tablet NG 05/03/24 09:44 600 mg QDAY ROGER Administration Dextrose 25 ml 03/30/24 16:22 04/01/24 04:58 Dextrose 50%-Water Inj 50 Ml Syringe IV 04/29/24 16:21 25 ml Q15MIN PRN Administration BG 50-70 responsive npo pt Dextrose 50 ml 03/30/24 16:22 Dextrose 50%-Water Inj 50 Ml Syringe IV 04/29/24 16:21 Q15MIN PRN BG <50 OR BG <70 & pt unresponsive Enoxaparin Sodium 40 mg 04/04/24 09:00 04/06/24 08:30 Enoxaparin Sod Inj 40 Mg/0.4 Ml Syringe SC 04/18/24 08:59 40 mg QDAY ROGER Administration Folic Acid 1 mg 03/30/24 16:45 04/06/24 08:08 Folic Acid Inj 1 Mg/0.2 Ml IVP 04/29/24 16:44 1 mg QDAY ROGER Administration Glucagon 1 mg 03/30/24 16:22 Glucagon Inj 1 Mg Vial IM Q15MIN PRN BG <70, and no IV access Ceftriaxone Sodium 2 gm/ 100 mls @ 200 mls/hr 04/02/24 09:00 04/06/24 08:09 Sodium Chloride IV 04/08/24 08:59 200 mls/hr QDAY ROGER Administration Azithromycin 500 mg/ Sodium 250 mls @ 250 mls/hr 04/02/24 09:00 04/06/24 09:00 Chloride IV 04/08/24 08:59 250 mls/hr QDAY ROGER Administration Norepinephrine/Dextrose 8 mg in 250 mls @ 3.836 mls/hr 04/02/24 20:07 04/06/24 09:10 Levophed In D5w 8mg/250ml IV 05/02/24 20:06 0 mcg/kg/min .Q24H PRN 0.16 mls/hr PER protocol Administration Protocol 0.05 MCG/KG/MIN Magnesium Sulfate 4 gm in 50 mls @ 12.5 mls/hr 04/06/24 08:06 04/06/24 08:28 Magnesium Sulfate Ivpb IV 04/06/24 12:05 12.5 mls/hr X1 ONE Administration Potassium Phosphate 15 mmol in 250 mls @ 62.5 mls/hr 04/06/24 08:08 04/06/24 08:29 Pot Phos 15 Mmol In Ns 250 Ml IV 04/06/24 16:07 62.5 mls/hr Q4H ROGER Administration Insulin Human Lispro 0 unit 03/30/24 17:00 04/06/24 11:39 Insulin Lispro (Admelog) 1 Unit/0.01 Ml Unit SC 04/29/24 16:59 1 unit Q6HR ROGER Administration Protocol Levothyroxine Sodium 75 mcg 04/04/24 06:00 04/06/24 07:39 Levothyroxine Sodium 25 Mcg Tablet NG 05/04/24 05:59 75 mcg ACBR ROGER Administration Midodrine 10 mg 04/03/24 14:00 04/06/24 07:39 Midodrine 5 Mg Tablet NG 05/03/24 13:59 10 mg TID ROGER Administration Multivitamins/Minerals 15 ml 04/05/24 16:45 04/06/24 08:28 Multivitamin 15 Ml Udc GT 05/05/24 16:44 15 ml QDAY ROGER Administration Ondansetron HCl 4 mg 03/30/24 16:17 Ondansetron Inj 2 Mg/Ml Inj 2 Ml IV 04/29/24 16:16 Q6H PRN NAUSEA OR VOMITING Protocol Pantoprazole Sodium 40 mg 03/30/24 16:30 04/06/24 08:08 Pantoprazole Inj 40 Mg Vial IVP 04/29/24 16:29 40 mg QDAY ROGER Administration Thiamine HCl 100 mg 03/30/24 16:45 04/06/24 08:09 Thiamine Inj 100 Mg/Ml Vial 2 Ml IVP 04/29/24 16:44 100 mg QDAY ROGER Administration Plan Ms. 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 Per chart review and patient's daughter at bedside states patient have been declining physical activity for the past 2 months. She used to be able to walk herself to the restroom, feed herself, and walk around using walker and be able to communicate. But she has become increasingly depressed and bedbound for the last 1 week she has been having urinary incontinence and decreased oral intake. Patient was found unresponsive for which the family called ambulance. In the ED her blood glucose was found to be 13 she received D10 and her blood glucose improved and as well as her mentation. Patient was admitted to the hospital for possible PEG tube placement and treatment of bilateral pneumonia. On 04/02/2024 patient had a rapid response called for blood pressure of 75/44 maintaining MAP below 65 patient was given 1L bolus of normal saline without improvement of blood pressure and MAP; patient was upgraded to the ICU and Levophed was started. Neuro #History of CVA - Pt has a stroke in 2021 with residual deficit on the right side and global aphasia #Acute metabolic encephalopathy secondary to hypoglycemia -resolved -On admission patient's was altered with blood glucose was 13 and patient received D10 and her mentation improved to baseline -Patient's daughter have reported that for the past 2 months patient has become increasingly less physically active Cardio #Shock - Cardiognic shock vs. septic shock? -on admission pts. BC on 03/30 showed staph bacteremia in 1 of the 2 cultures, Pt has been on antibiotics -started levophed started on 04/03- -midodrine 10mg TID -Dobutamine drip started on 04/04 and D/c'd on 04/05 -vasopressin started on 04/04 and titrating it down as able -repeat echo04/05- EF 45-50% and mild to moderate MR #Newly diagnosed CHF DDx- takatsubo cardiomyopathy -Pt. may have developed takotsubo cardiomyopathy. Per Pt.'s daughter Tamia her (their father) sent her from [place] recently because he was unable to take care of her. And he does not communicate with her which has caused the Pt. to become increasingly withdrawn and poor oral intake. -EF 35-40 on echo 03/31 --> repeat echo 04/05 EF 45-50% and mild to moderate MR -In light of shock, will hold guideline directed medical therapy and will resume when able #Hx HTN - home meds on hold # Hx. HLD - resumed home atorvastatin #Troponinemia- resolved -on admission ? peaked at 1.033, without ST or T wave changes on EKG Pul #Pneumonia likely community acquired pneumonia with gram-positive organism found on blood cultures on 03/30 -Repeat chest x-ray today showed worsening diffuse significant bilateral pneumonia -on admission Pts. WBC was 15.2 --> 9.2- -repeat chest x-ray showed worsening bilateral pneumonia, and patient has developed a productive cough - patient is on sufficient coverage with antibiotics -Patient is on azithromycin and Rocephin 04/02- ID #Pneumonia #Bacteremia -Blood cultures on 03/30/2024-grew Staph aureus on 1 of 2 -Blood cultures since then, urine cultures and MRSA - negative -On antibiotics azithromycin and Rocephin -repeat blood cultures from 04/05 prelim no growth GI #Severe Malnutrition -Failure to thrive- patient's BMI is <22 and age >70 -Per patient's daughter, patient has poor oral intake and for 2 months was hiding food under the couch and bed and they often have to feed her with a syringe -likely secondary to poor oral intake due to depression -diet dysphagia 1 ordered -Per [employer] recommendations- Glucerna 1.2 at 20 ml/hr, Thiamine 100mg/day for 7 days, Multivitamins ordered # NG tube - resume trickle feeds at 20cc with no water flush #Hypoalbuminemia -Albumin is 2.4- likely secondary to nutritional deficiency -Will continue to treat underlying cause by giving adequate nutrition -Colloid fluid bolus given on 04/03 Endo #History of type 2 diabetes -Hemoglobin A1c on 1211 is 6.1, blood glucose 110 -Insulin sliding scale ordered #History of hypothyroidism -TSH 17.5, free T4 0.44 during this admission -Will increase home levothyroxine from 50 mcg to 75 mcg through NG tube Renal # Hypokalemia #Hypophosphatemia #Hypomagnesemia ? Repleted with 4 g of mag, 2 pack of Neutra-Phos, 30 mEq potassium and 40 mEq of potassium Heme #Acute anemia -Hemoglobin 9.7 and hematocrit 28 -no signs of active bleeding -will continue to monitor with daily CBC -will transfuse with pRBCs if Hgb <7 DVT prophylaxis-Lovenox Skin #Sacral ulcer -Patient has 2 ulcers in the sacrum -Smaller 1 appears to be stage II and the bigger one appears to be stage III -Frequent pressure redistribution -Wound care is ordered Disposition: ICU for pressor support DVT Prophylaxis: enoxaparin 40mg Qdaily GI Prophylaxis: Pantoprozol-40 IV Qday Diet: NG glucerna 1.2 at 20ml/hr, Code status: DNR/DNI Assessment and plan discussed with my attending physician Dr. Diana Zaman (PGY-1)- Internal medicine resident Attending Provider Attestation/Addendum Patient seen and examined with resident. Agree with above. In brief this is 79-year-old female who was brought to the ICU for multifactorial shock. She was seen in conjunction with the cardiology service today. Cheetah was placed for additional hemodynamic monitoring as well as a central line. An SVO 2 was obtained and we will transduce his CVP. Patient's etiology of shock appears to be more cardiogenic at this point in time then distributive. This afternoon she has had a significant decompensation with rapidly escalating Levophed requirements. She is currently at 0.5 mics of Levophed as well as vasopressin. A 1 point in the afternoon she required 2 Amps of epi for systolic blood pressure in the 50s and 60s not responding to rapid upward titration of the Levophed and she was periarrest. She continues on broad-spectrum antibiotics to cover for sepsis with source being her pneumonia. Blood cultures from the 10th did grow MSSA however no additional cultures have been positive. Family discussion was held and at this point in time the family would prefer to keep her full code. She is being treated for what is felt to be a primary cardiogenic etiology with dobutamine, Levophed, vasopressin and diuresis. At this point in time cardiology does not feel that there is any thing additional what they have to offer at this point in time. Recommendations are appreciated. Case discussed with ICU team Labs, imaging and records reviewed Approximately 65 critical care minutes required for evaluation, exam, review, intervention, discussion formulation of plan of care for this critically ill patient with shock on vasopressors.
--- NOTE | 2024-04-06 13:07 | PC.SS ---
Update: Patient on 2L oxymask. NG tube in place for feedings. Skin issue in sacrum region. Code status is DNR.
[2024-04-06] MEDS: ACETAMINOPHEN 325 MG TABLET 650 MG PO (13:43)
[2024-04-06 16:09] LABS: Albumin, Serum 2.5 gm/dL (3.4-4.8); Anion Gap 8 (7-16); BUN/Creatinine Ratio 23 Ratio (12-20); Blood Urea Nitrogen 9 mg/dL (9-23); Calcium 7.6 mg/dL (8.3-10.6); Calcium (Corrected) 8.8 mg/dL (8.5-10.1); Carbon Dioxide 25.1 mMol/L (20.0-31.0); Chloride 104 mMol/L (98-107); Creatinine (Component) 0.4 mg/dL (0.6-1.3); Estimated Creatinine Clearance 70.6 mL/min (>60); Glucose 122 mg/dL (74-106); Osmolality,Calculated 273 (275-295); Phosphorous 4.7 mg/dL (2.4-5.1); Potassium 3.6 mMol/L (3.4-5.1); Sodium 137 mMol/L (136-145); eGFR > 60 See Note
[2024-04-06] MEDS: POTASSIUM CHLORIDE 10% 20 MEQ/15 ML UDC 40 MEQ NG (17:55)
--- NOTE | 2024-04-06 21:13 | ESPR_ITS ---
Documentation for date of: 04/06/24 Subjective Subjective Interval history: Patient holding onto the blenderized diet for which it was canceled to prevent aspiration Trickle feeding through the NGT Not enough nutrition support Family will consider PEG tube placement once she is out of the ICU and has a better prognosis I will make further decision Exam Vital Signs Temp Pulse Resp BP Pulse Ox O2 Del Method O2 Flow Rate 97.2 F 66 15 96/57 L 98 Nasal Cannula 3 04/06/24 16:01 04/06/24 18:00 04/06/24 18:00 04/06/24 18:00 04/06/24 18:00 04/04/24 20:00 04/06/24 17:57 Constitutional Comments: More alert Routine Respiratory Exam Comments: Scattered rhonchi Routine Abdominal Exam Comments: Soft nontender Objective Labs 04/06/24 05:10 04/06/24 15:19 Labs: Laboratory Results - last 24 hr 04/06/24 04/06/24 05:10 15:19 WBC 8.0 RBC 3.16 L Hgb 9.7 L Hct 28.0 L MCV 89 MCH 30.7 MCHC 34.6 RDW Std Deviation 46.2 Plt Count 172 Neut % (Auto) 84 H Lymph % (Auto) 12 Starr % (Auto) 2 Eos % (Auto) 1 Baso % (Auto) 0 Neut # (Auto) 6.8 Lymph # (Auto) 1.0 Starr # (Auto) 0.2 Eos # (Auto) 0.1 Baso # (Auto) 0.0 Immature Gran # (Auto) 0.04 H Absolute Nucleated RBC 0.00 Immature Gran % 1 H Nucleated RBC % 0 Sodium 137 137 Potassium 2.9 L D 3.6 D Chloride 104 104 Carbon Dioxide 25.6 25.1 Anion Gap 7 8 BUN 9 9 Creatinine 0.5 L 0.4 L Estim Creat Clear Calc 56.5 L 70.6 eGFR > 60 > 60 BUN/Creatinine Ratio 18 23 H Glucose 91 D 122 H Calculated Osmolality 272 L 273 L Calcium 7.8 L 7.6 L Corrected Calcium 8.9 8.8 Phosphorus 1.9 L 4.7 Magnesium 1.5 L Total Bilirubin 0.2 L AST 51 H ALT 30 Alkaline Phosphatase 278 H D Total Protein 5.2 L Albumin 2.6 L 2.5 L Globulin 2.6 Albumin/Globulin Ratio 1.0 L Impressions Impression: # Dysphagia # Failure to thrive Continue NGT feeding till the family decides for PEG placement ABG Interpretation ABG results: 03/30/24 04/01/24 04/01/24 13:55 10:25 17:20 ABG pH 7.48 H 7.52 H 7.47 H ABG pCO2 34 31 L 34 ABG pO2 300 H 155 H D 36 L* D ABG HCO3 25 25 25 ABG O2 Saturation 100 H 100 H 70 L ABG Base Excess 2 3 1 VBG pH VBG pCO2 VBG pO2 VBG Base Excess 04/04/24 13:52 ABG pH ABG pCO2 ABG pO2 ABG HCO3 ABG O2 Saturation ABG Base Excess VBG pH 7.43 VBG pCO2 19 L VBG pO2 136 H VBG Base Excess -10 L Assessment & Plan A&P Narrative 79-year-old female with past medical history of hypertension, hyperlipidemia, 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 1. Acute decompensated systolic heart failure (EF 35 to 40%) 2. NSTEMI 3. Essential hypertension ?Given patient's elevated troponins which peaked at 1.033 and down trended this is most likely NSTEMI type II likely demand ischemia ?Given patient is a poor candidate for heart catheterization at this time due to other comorbidities we will treat medically for now ?Patient's blood pressure has been under control during her hospital stay. ?Echo done on 03/31/2024 has had the following findings: Negative bubble study. TTE is suboptimal to rule out PFO or ASD. Consider GLORIA if high clincial suspicion. Normal LV size. Moderate to severe LV systolic dysfunction with an EF of around 35 to 40%.Severe hypokinesis of the mid to apical septum, apical anterior and apical anterolateral segments and akinetic apex indicating possible LAD involvement versus Takotsubo syndrome. Difficult to comment on apical thrombus due to lack of definity. Normal RV size and function. Mild TR Moderate MAC. Mild MR Mild AV sclerosis without stenosis with mild AI. ?Patient most likely has some underlying CAD, but given multiple comorbidities and current clinical status she is not a good candidate for heart catheterization and family is aware of this and are in agreement. Plan: ?Recommend to treat patient as NSTEMI ?No need to trend troponins ?Okay to start heparin drip if no contraindications as well as aspirin and high intensity statin ? Given patient's multiple comorbidities and history of decline in health would recommend primary care team to have goals of care discussions with patient's family. 4. Acute encephalopathy 5. Hypoglycemia 6. DM2 ?Patient has been taking glyburide 5 mg as well as metformin 625 mg 3 times daily which could have precipitated his patient hypoglycemia in the event that she has been having poor oral intake. ? Continue current management as per primary care team 7. Failure to thrive ?Patient may benefit from PEG tube placement as she has been having poor oral intake for the past few weeks. ? Recommend to follow GI recommendations ? Continue current management as per primary care team 8. CVA with residual right-sided deficits 9. Hyperlipidemia ? Continue current management as primary care team Cardiology was consulted because of the abnormal echocardiogram which showed moderate to severe LV dysfunction with an EF of around 35 to 40%. Severe hypokinesis of the mid to apical septum, apical anterior and apical anterolateral segments as well as secondary to Indicating possible LAD involvement versus Takotsubo syndrome. RV size and function was normal and it showed mild valvular abnormalities. During my examination patient did not appear to be any fluid overload and patient is nonverbal bedbound and has severe contractures of all extremities and unable to provide any kind of history. VS per the daughter as well as the granddaughter were at the bedside patient has been like this for the past few months that she has not been able to eat and she is actually being taken for a PEG tube placement today and because of her poor nutrition patient appears cachectic. Explained to the family in the detail about a possible syndrome and the possible LAD disease given echocardiogram findings but as per the family she never complained of any chest pain or chest pressure as she does show in the sign language whenever something hurts her. Explained to the family that it would be futile to pursue the further workup of her new onset severe systolic congestive heart failure. The regional wall motion abnormalities involving the LAD territory as it could be well Takotsubo syndrome given her recent hospitalization. Patient is not an ideal candidate for any kind of cardiac catheterization as she cannot straighten any of her extremities because of the significant cramps factors. Also patient is bedbound, nonverbal with multiple comorbidities as mentioned above and recommend only medical treatment for now. Recommend aggressive medical treatment with goal-directed medical therapy with beta-devon, Entresto as well as spironolactone based on the blood pressure as well as the kidney function. If patient can tolerate patient should be on aspirin as well as statin high intensity. Check lipid profile TSH as well as A1c. Patient does not appear to be fluid overloaded and does not need diuretics at the present point of time. Patient actually is not eating because of dysphagia and plan for PEG tube for now. Also recommend primary team to discuss the goals of care for the patient in detail for the patient. 04/02/2024: No new complaints including any cardiac complaints. As detailed yesterday in the note plan is for aggressive medical management for her severe systolic congestive heart failure with a differential diagnosis of Takotsubo versus LAD involvement given her multiple comorbidities and the bedbound status with severe contractures and is not an appropriate candidate for cardiac catheterization as she will not be able to lie flat on the [employer] table. The procedure would only be futile considering the above and recommend primary team to discuss the goals of care and also address the CODE STATUS for the patient Patient had an MRI performed the did not show any acute infarcts in showed prominent moderate chronic white matter changes. Bolick encephalopathy mostly secondary to the hypoglycemia and sepsis as per the neurology. GI team following the patient and planning for PEG tube placement given her failure. Colonoscopy also planned by GI for CT scan abdominal pelvis showing thickening of the rectal wall as well as stool impaction increased stool burden. Patient also found to have 90% stenosis of the bifurcation of the right carotid artery which will be treated medically as she is not considered a candidate for carotid endarterectomy. Management of rest of the medical conditions as per primary team and other consultants. Thank you for the consult and allowing me to participate in the care of the patient. Cardiology will continue to follow. Rao Dodson M.D. Interventional Cardiology Time Spent With Patient Time: Total time spent is greater than 50% in coordination of care (as documented) at patient's floor/unit and/or counseling patient:
[2024-04-06] MEDS: ATORVASTATIN CALCIUM 20 MG TABLET 80 MG NG (21:31)
[2024-04-07] VITALS (109 sets, daily range): BP systolic 76–133; BP diastolic 43–83; PULSE 57–105; RESP 0–21; TEMP 36.1–36.9; O2SAT 92–100; BMI 19.5
[2024-04-07] MEDS: INSULIN LISPRO (AdmeLOG) 1 UNIT/0.01 ML UNIT SC ×2 (00:50→05:19)
[2024-04-07] MEDS: ACETAMINOPHEN 325 MG TABLET 650 MG PO ×3 (01:20→22:25)
[2024-04-07 02:10] LABS: Collection Type, Urine Clean Catch; Squamous Epithelial Cell,Urine 0 /hpf (0-5)
[2024-04-07 02:22] LABS: Bacteria,Urine 1+; Bilirubin,Urine Negative (Negative); Blood,Urine 2+ (Negative); Budding Yeast,Urine Present; Clarity,Urine Turbid (Clear/Hazy); Color,Urine Yellow (Lt Yel-Yel); Glucose, Urine Negative (Negative); Ketones,Urine Negative (Negative); Leukocyte Esterase,Urine Positive (Negative); Nitrite,Urine Negative (Negative); Protein,Urine Trace (Neg - Trace); RBC,Urine 420 /hpf (0-3); Specific Gravity,Urine 1.023 (1.001-1.035); Urobilinogen,Urine Negative mg/dL (0.0-1.0); WBC,Urine 46 /hpf (0-5)
[2024-04-07] MEDS: Norepinephrine/D5W 8mg/250ml 8 MG/250 ML BAG 13.808 MG IV (02:28)
[2024-04-07] MEDS: LEVOTHYROXINE SODIUM 25 MCG TABLET 75 MCG NG (05:19)
[2024-04-07] MEDS: MIDODRINE 5 MG TABLET 10 MG NG ×3 (05:19→20:17)
[2024-04-07 06:07] LABS: Basophils % (Auto) 0 % (0-2.5); Eosinophils # (Auto) 0.1 Thou/mm3 (0.0-0.5); Eosinophils % (Auto) 1 % (0-10); Hematocrit 26.6 % (36.0-46.0); Hemoglobin 9.2 g/dL (12.0-16.0); Immature Granulocytes % (Auto) 1 % (0-0); Immature Granulocytes Auto 0.04 Thou/mm3 (0.00-0.00); Lymphocytes % (Auto) 12 % (10-50); Mean Corpuscular HGB Conc 34.6 g/dl (31.0-37.0); Mean Corpuscular Hemoglobin 30.4 pg (25.0-35.0); Mean Corpuscular Volume 88 fL (80-100); Monocytes # (Auto) 0.2 Thou/mm3 (0.0-0.8); Monocytes % (Auto) 2 % (0-12); Neutrophils # (Auto) 6.8 Thou/mm3 (1.8-7.7); Neutrophils % (Auto) 84 % (37-80); Nucleated Red Blood Cell % 0 /100 WBC (0); Platelet Count 135 Thou/mm3 (140-440); RDW Standard Deviation 45.6 fL (36.4-46.3); Red Blood Count 3.03 Miln/mm3 (4.00-5.20)
[2024-04-07 06:43] LABS: Alanine Aminotransferase 28 U/L (10-49); Albumin, Serum 2.5 gm/dL (3.4-4.8); Alkaline Phosphatase 261 U/L (46-116); Anion Gap 6 (7-16); Aspartate Amino Transferase 50 U/L (0-34); BUN/Creatinine Ratio 25 Ratio (12-20); Bilirubin,Total 0.2 mg/dL (0.3-1.2); Blood Urea Nitrogen 10 mg/dL (9-23); Calcium 7.7 mg/dL (8.3-10.6); Calcium (Corrected) 8.9 mg/dL (8.5-10.1); Carbon Dioxide 24.3 mMol/L (20.0-31.0); Chloride 106 mMol/L (98-107); Creatinine (Component) 0.4 mg/dL (0.6-1.3); Estimated Creatinine Clearance 70.6 mL/min (>60); Globulin 2.5 gm/dL (2.3-3.5); Glucose 129 mg/dL (74-106); Magnesium 1.9 mg/dL (1.6-2.6); Osmolality,Calculated 272 (275-295); Phosphorous 3.1 mg/dL (2.4-5.1); Potassium 3.9 mMol/L (3.4-5.1); Sodium 136 mMol/L (136-145); eGFR > 60 See Note
[2024-04-07] MEDS: cefTRIAXone 2 GM in SODIUM CHLORIDE 0.9% (P) 100 ML IV (08:03)
[2024-04-07] MEDS: SENNOSIDES SYRUP 8.8 MG/5 ML UDC NG (08:03)
[2024-04-07] MEDS: MULTIVITAMIN 15 ML UDC GT (08:04)
[2024-04-07] MEDS: ASPIRIN 81 MG CHEW NG (08:04)
[2024-04-07] MEDS: CALCIUM CARBONATE 600 MG TABLET NG (08:04)
[2024-04-07] MEDS: PANTOPRAZOLE INJ 40 MG VIAL IVP (08:04)
[2024-04-07] MEDS: AZITHROMYCIN INJ 500 MG in SODIUM CHLORIDE 0.9% 250 ML 250 ML 250 MG IV (08:05)
[2024-04-07] MEDS: FOLIC ACID INJ 1 MG/0.2 ML IVP (08:05)
[2024-04-07] MEDS: bisacodyL 10 MG SUPP PR (08:05)
[2024-04-07] MEDS: THIAMINE INJ 100 MG/ML VIAL 2 ML IVP (08:05)
[2024-04-07] MEDS: ENOXAPARIN SOD INJ 40 MG/0.4 ML SYRINGE SC (08:30)
[2024-04-07] MEDS: ALBUMIN HUMAN 25% IVPB 12.5 GM/50 ML BTL IV (09:39)
--- NOTE | 2024-04-07 11:21 | PD.IMPROG ---
Documentation for date of: 04/07/24 Subjective Subjective Interval history: Patient was seen and examined at bedside this morning. Patient clinical condition slowly improving and Levophed requirements are decreasing Vasopressin and dobutamine was discontinued over the last couple of days. Echo on 04/05/2024 had the following findings: Normal left ventricular size, wall thickness. Low normal systolic function. Estimated 45-50%. RV is normal in size and systolic function. The estimated RVSP, 34 mmHg. RAP 5. Moderate MAC. Mild to moderate MR. Mild sclerosis without stenosis. Mild AI. Findings showed significant improvement, but was on pressors and could indicate possible Takotsubo syndrome which could be possibly secondary to the sepsis Patient was made DNR/DNI by family yesteday as stated by ICU team. Potassium 2.9 and magnesium 1.5 today, recommend to replete potassium magnesium to keep above 4 and 2 respectively to avoid any further arrhythmias. can start patient in oral diuresis if BP allows and patient becomes fluid overloaded Exam Vital Signs Temp Pulse Resp BP Pulse Ox O2 Del Method O2 Flow Rate 97 F 61 3 L 97/49 L 92 L Oxy Mask 2 04/07/24 08:00 04/07/24 10:45 04/07/24 11:01 04/07/24 11:01 04/07/24 11:01 04/07/24 06:00 04/07/24 10:14 FiO2 3 04/07/24 03:30 Narrative Exam General:nonverbal, cachectic, temporal wasting, fragile, thin Eyes: able to trace Ears: No visible ear discharge Nose: No visible nasal discharge. Mouth/Throat: Dry mucous membranes,poor dentattion Neck: Neck supple, non-tender, no cervical lymphadenopathy. Lungs: Clear LEONEL to auscultation and percussion, No accessory muscle use. Cardio: Normal S1/S2, regular rhythm, no murmurs, no JVD Abdomen: Soft, non-tender, no palpable masses, peristalsis present, no guarding or rebound. Extremities: Symmetrical, contractures of LEONEL Wrist and LE, no peripheral edema , non-tender, peripheral pulses presents. Skin: No rashes, no lesions, warm to touch. Neuro: Could not be assessed due to patient's current condition, able to move all extremities's Objective Labs 04/07/24 05:39 04/07/24 05:39 Labs: Laboratory Results - last 24 hr 04/03/24 04/06/24 04/07/24 01:57 15:19 05:39 WBC 8.0 RBC 3.03 L Hgb 9.2 L Hct 26.6 L MCV 88 MCH 30.4 MCHC 34.6 RDW Std Deviation 45.6 Plt Count 135 L D Neut % (Auto) 84 H Lymph % (Auto) 12 [place] % (Auto) 2 Eos % (Auto) 1 Baso % (Auto) 0 Neut # (Auto) 6.8 Lymph # (Auto) 1.0 [place]in # (Auto) 0.2 Eos # (Auto) 0.1 Baso # (Auto) 0.0 Immature Gran # (Auto) 0.04 H Absolute Nucleated RBC 0.00 Immature Gran % 1 H Nucleated RBC % 0 Sodium 137 136 Potassium 3.6 D 3.9 Chloride 104 106 Carbon Dioxide 25.1 24.3 Anion Gap 8 6 L BUN 9 10 Creatinine 0.4 L 0.4 L Estim Creat Clear Calc 70.6 70.6 eGFR > 60 > 60 BUN/Creatinine Ratio 23 H 25 H Glucose 122 H 129 H Calculated Osmolality 273 L 272 L Calcium 7.6 L 7.7 L Corrected Calcium 8.8 8.9 Phosphorus 4.7 3.1 Magnesium 1.9 Total Bilirubin 0.2 L AST 50 H ALT 28 Alkaline Phosphatase 261 H Total Protein 5.0 L Albumin 2.5 L 2.5 L Globulin 2.5 Albumin/Globulin Ratio 1.0 L Ur Collection Type Clean Catch Urine Color Yellow Urine Clarity Turbid A Urine pH 6.0 Ur Specific [place] 1.023 Urine Protein Trace Urine Glucose (UA) Negative Urine Ketones Negative Urine Blood 2+ A Urine Nitrite Negative Urine Bilirubin Negative Urine Urobilinogen (Auto) Negative Ur Leukocyte Esterase Positive Urine RBC 420 H Urine WBC 46 H Ur Squamous Epith Cells 0 Urine Bacteria 1+ A Urine Yeast (Budding) Present A ABG Interpretation ABG results: 03/30/24 04/01/24 04/01/24 13:55 10:25 17:20 ABG pH 7.48 H 7.52 H 7.47 H ABG pCO2 34 31 L 34 ABG pO2 300 H 155 H D 36 L* D ABG HCO3 25 25 25 ABG O2 Saturation 100 H 100 H 70 L ABG Base Excess 2 3 1 VBG pH VBG pCO2 VBG pO2 VBG Base Excess 04/04/24 13:52 ABG pH ABG pCO2 ABG pO2 ABG HCO3 ABG O2 Saturation ABG Base Excess VBG pH 7.43 VBG pCO2 19 L VBG pO2 136 H VBG Base Excess -10 L Assessment & Plan A&P Narrative 79-year-old female with past medical history of hypertension, hyperlipidemia, 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 1. Acute decompensated systolic heart failure (EF 45 to 50%) 2. NSTEMI 3. Essential hypertension ?Given patient's elevated troponins which peaked at 1.033 and down trended this is most likely NSTEMI type II likely demand ischemia ?Given patient is a poor candidate for heart catheterization at this time due to other comorbidities we will treat medically for now ?Patient's blood pressure has been under control during her hospital stay. ?Echo done on 03/31/2024 has had the following findings: Negative bubble study. TTE is suboptimal to rule out PFO or ASD. Consider GLORIA if high clincial suspicion. Normal LV size. Moderate to severe LV systolic dysfunction with an EF of around 35 to 40%.Severe hypokinesis of the mid to apical septum, apical anterior and apical anterolateral segments and akinetic apex indicating possible LAD involvement versus Takotsubo syndrome. Difficult to comment on apical thrombus due to lack of definity. Normal RV size and function. Mild TR Moderate MAC. Mild MR Mild AV sclerosis without stenosis with mild AI. ?Patient most likely has some underlying CAD, but given multiple comorbidities and current clinical status she is not a good candidate for heart catheterization and family is aware of this and are in agreement. -Patient is currently on norepinephrine at 3.836 mL/h as well as midodrine 5 mg 3 times daily ? Patient's differential diagnosis includes Takotsubo versus LAD involvement given her, but given her multiple comorbidities, bedbound status, and severe contractions she is not a good candidate for heart catheterization given that she could not lay flat on the [employer] table. Should be attributed medically for now. -Echo on 04/05/2024 had the following findings: Normal left ventricular size, wall thickness. Low normal systolic function. Estimated 45-50%. RV is normal in size and systolic function. The estimated RVSP, 34 mmHg. RAP 5. Moderate MAC. Mild to moderate MR. Mild sclerosis without stenosis. Mild AI. -Findings showed significant improvement, but was on pressors and could indicate possible Takotsubo syndrome which could be possibly secondary to the sepsis Plan: ?Recommend to hold off on goal-directed medical therapy with beta-devon, Entresto as well as spironolactone as patient is still hypotensive and requiring increase of vasopressor. -Continue pressor support for now. - Patient clinical condition slowly improving and Levophed requirements are decreasing - Vasopressin and dobutamine was discontinued over the last couple of days. -can start patient in oral diuresis if BP allows and patient becomes fluid overloaded. ?Patient should also be on aspirin and statin ?No need to trend troponins 4. Acute encephalopathy 5. Hypoglycemia 6. DM2 ?Patient has been taking glyburide 5 mg as well as metformin 625 mg 3 times daily which could have precipitated his patient hypoglycemia in the event that she has been having poor oral intake. ? Continue current management as per primary care team 7. Failure to thrive ?Patient may benefit from PEG tube placement as she has been having poor oral intake for the past few weeks. ? Recommend to follow GI recommendations ? Continue current management as per primary care team 8. CVA with residual right-sided deficits 9. Hyperlipidemia ? Continue current management as primary care team Management of rest of the medical conditions as per primary team and other consultants. Thank you for the consult and allowing me to participate in the care of the patient. Cardiology will continue to follow. Rao Dodson M.D. Interventional Cardiology Time Spent With Patient Time: Total time spent is greater than 50% in coordination of care (as documented) at patient's floor/unit and/or counseling patient:
--- NOTE | 2024-04-07 15:37 | PC.SS ---
Update: Patient receiving pressors. Patient on 2L oxymask. NG tube in place for feedings.
[2024-04-07] MEDS: RINGERS LACTATED 500 ML 500 ML 250 ML IV (16:03)
--- NOTE | 2024-04-07 16:49 | ESPR_ITS ---
Documentation for date of: 04/07/24 Subjective Subjective Interval history: 04/03: Pt is an overnight upgrade.Pt has an rapid response called for hypotension, Pt received 1L bolus NS without improvement of the BP. Pt was upgraded to the ICU for pressor support and started on levophed. Pt. 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 overnight pt. has 300 cc of urine output. 04/04: no acute overnight events. Pt. urine output was about 130cc and 1 BM overnight. Pt. continues to require higher rate of levophed , midrodrine 10 TIDdespite that she required dobutamine this morning as pt's MAP continues to drop below 60. Pt is alert, awake and is able to follow commands. on [place] today pt. was not fluid responsive with TPR 1990, SVI 27, CI 1.8. 04/05: no acute over night events. Pt. is saturating on 5L O2 via oxymask. Pt is alert and awake. Pt. MAP continues to improve, currently above 80 therefore will discontinue dobutamine and will titrate down vasopressin and levophed. Bedside echo showed improved contractility of the ventricles therefore we will repeat echo to see if there is improvement from previous EF of 35-40%. Pt's family at bedside asked to change code status from full code to DNR as they do not want her to go through additional pain and suffering if she was to have cardiac or respiratory arrest. Per dietitian recommendations we have added thiamine for 7days and multivitamins day to her dysphagia 2 diet. 04/06: No acute overnight events. Patient is alert, and awake she is able to follow commands. Patient is saturating on 2 L of oxygen via oxy mask. Patient has developed a productive cough, but is afebrile and no leukocytosis. Will repeat chest x-rays. Patient also has been having very small bowel movement, for which we will order senna. Patient's diet was advanced to blenderized however she is holding onto the food in her mouth and not swallowing therefore will DC the blenderized oral diet to prevent aspiration. we will continue tube feeds via NG and increase to 20ml/h and will follow dietitian recommendations. 04/07:no acute overnight events. Pt is alert, awake and follow commands. Pt is saturating on 2L O2 via oxymask. Pt. still requires pressor support due to MAP below 65. repeat CXR show worsening pneumonia, will continue antibiotics for total 14 days and repeat prelim blood cultures are negative. Pt. continues to have mild productive cough , will add chest physiotherapy for 20 mins BID. Exam Vital Signs Temp Pulse Resp BP Pulse Ox O2 Del Method O2 Flow Rate 98 F 66 14 110/62 97 Oxy Mask 2 04/07/24 16:00 04/07/24 16:00 04/07/24 16:00 04/07/24 16:00 04/07/24 16:00 04/07/24 06:00 04/07/24 10:14 FiO2 3 04/07/24 03:30 Narrative Exam GENERAL: Awake, elderly thin non female, Not in acute distress, is able to follow command NEURO: alert, motor deficit in the right and upper and lower extremities HEENT: Atraumatic, Normocephalic. mucous membranes moist. Eyes open, symmetrical, & clear HEART: Faint Heart Sounds LUNGS: Clear to auscultation with no wheezing or crackles. ABDOMEN: soft, non-distended, non-tender, bowel sounds heard, no guarding or rebound tenderness SKIN: 2 sacral ulcers, smaller one appears to be stage 2 and larger one appears to be stage 3 EXTREMITIES: 1+ pitting edema bilaterally on LE, non pitting edema on right hand, pedal pulses palpated, contracted lower extremities Objective Labs 04/08/24 07:10 04/08/24 07:10 Labs: Laboratory Results - last 24 hr 04/03/24 04/07/24 01:57 05:39 WBC 8.0 RBC 3.03 L Hgb 9.2 L Hct 26.6 L MCV 88 MCH 30.4 MCHC 34.6 RDW Std Deviation 45.6 Plt Count 135 L D Neut % (Auto) 84 H Lymph % (Auto) 12 Person % (Auto) 2 Eos % (Auto) 1 Baso % (Auto) 0 Neut # (Auto) 6.8 Lymph # (Auto) 1.0 Person # (Auto) 0.2 Eos # (Auto) 0.1 Baso # (Auto) 0.0 Immature Gran # (Auto) 0.04 H Absolute Nucleated RBC 0.00 Immature Gran % 1 H Nucleated RBC % 0 Sodium 136 Potassium 3.9 Chloride 106 Carbon Dioxide 24.3 Anion Gap 6 L BUN 10 Creatinine 0.4 L Estim Creat Clear Calc 70.6 eGFR > 60 BUN/Creatinine Ratio 25 H Glucose 129 H Calculated Osmolality 272 L Calcium 7.7 L Corrected Calcium 8.9 Phosphorus 3.1 Magnesium 1.9 Total Bilirubin 0.2 L AST 50 H ALT 28 Alkaline Phosphatase 261 H Total Protein 5.0 L Albumin 2.5 L Globulin 2.5 Albumin/Globulin Ratio 1.0 L Ur Collection Type Clean Catch Urine Color Yellow Urine Clarity Turbid A Urine pH 6.0 Ur Specific [place] 1.023 Urine Protein Trace Urine Glucose (UA) Negative Urine Ketones Negative Urine Blood 2+ A Urine Nitrite Negative Urine Bilirubin Negative Urine Urobilinogen (Auto) Negative Ur Leukocyte Esterase Positive Urine RBC 420 H Urine WBC 46 H Ur Squamous Epith Cells 0 Urine Bacteria 1+ A Urine Yeast (Budding) Present A ABG Interpretation ABG results: 03/30/24 04/01/24 04/01/24 13:55 10:25 17:20 ABG pH 7.48 H 7.52 H 7.47 H ABG pCO2 34 31 L 34 ABG pO2 300 H 155 H D 36 L* D ABG HCO3 25 25 25 ABG O2 Saturation 100 H 100 H 70 L ABG Base Excess 2 3 1 VBG pH VBG pCO2 VBG pO2 VBG Base Excess 04/04/24 13:52 ABG pH ABG pCO2 ABG pO2 ABG HCO3 ABG O2 Saturation ABG Base Excess VBG pH 7.43 VBG pCO2 19 L VBG pO2 136 H VBG Base Excess -10 L Quality Measures Quality Measures stroke Suspected type of Stroke: Unknown at this time Tenecteplase given: Reason(s) Tenecteplase not given: Outside the time window not given Rehab services: PT evaluation ordered (pt. is in ICU on pressor ) VTE Prophylaxis: pharmaceutical Antithrombotic by day 2:: not indicated (describe) Statin ordered: >75 y/o moderate or high intensity dose Anticoagulation ordered for A- fib or flutter (current or hx): not indicated Advance care planning discussed with:: child Assessment & Plan Assessment Current Active Medications: Generic Name Dose Route Start Last Admin Trade Name Freq PRN Reason Stop Dose Admin Acetaminophen 650 mg 03/30/24 16:17 Acetaminophen 325 Mg Tablet PO 04/29/24 16:16 Q6H PRN Fever >101.5 Acetaminophen 650 mg 03/30/24 16:17 04/07/24 08:08 Acetaminophen 325 Mg Tablet PO 04/29/24 16:16 650 mg Q6H PRN Administration PAIN SCALE 1-3 (mild Aspirin 81 mg 04/06/24 07:35 04/07/24 08:04 Aspirin 81 Mg Chew NG 05/01/24 18:44 81 mg QDAY ROGER Administration Atorvastatin Calcium 80 mg 04/06/24 07:35 04/06/24 21:31 Atorvastatin Calcium 20 Mg Tablet NG 05/01/24 20:59 80 mg HS ROGER Administration Bisacodyl 10 mg 03/30/24 19:00 04/07/24 08:05 Bisacodyl 10 Mg Supp [place] 04/29/24 18:59 10 mg QDAY ROGER Administration Protocol Calcium Carbonate 600 mg 04/03/24 09:45 04/07/24 08:04 Calcium Carbonate 600 Mg Tablet NG 05/03/24 09:44 600 mg QDAY ROGER Administration Dextrose 25 ml 03/30/24 16:22 04/01/24 04:58 Dextrose 50%-Water Inj 50 Ml Syringe IV 04/29/24 16:21 25 ml Q15MIN PRN Administration BG 50-70 responsive npo pt Dextrose 50 ml 03/30/24 16:22 Dextrose 50%-Water Inj 50 Ml Syringe IV 04/29/24 16:21 Q15MIN PRN BG <50 OR BG <70 & pt unresponsive Enoxaparin Sodium 40 mg 04/04/24 09:00 04/07/24 08:30 Enoxaparin Sod Inj 40 Mg/0.4 Ml Syringe SC 04/18/24 08:59 40 mg QDAY ROGER Administration Folic Acid 1 mg 03/30/24 16:45 04/07/24 08:05 Folic Acid Inj 1 Mg/0.2 Ml IVP 04/29/24 16:44 1 mg QDAY ROGER Administration Glucagon 1 mg 03/30/24 16:22 Glucagon Inj 1 Mg Vial IM Q15MIN PRN BG <70, and no IV access Ceftriaxone Sodium 2 gm/ 100 mls @ 200 mls/hr 04/02/24 09:00 04/07/24 08:03 Sodium Chloride IV 04/08/24 08:59 200 mls/hr QDAY ROGER Administration Norepinephrine/Dextrose 8 mg in 250 mls @ 3.956 mls/hr 04/07/24 14:32 Levophed In D5w 8mg/250ml IV 05/02/24 20:06 .Q24H PRN PER protocol Protocol 0.05 MCG/KG/MIN Lactated Ringer's 500 mls @ 250 mls/hr 04/07/24 15:56 04/07/24 16:03 Lactated Ringers IV 04/07/24 17:55 250 mls/hr .Q2H ONE Administration Insulin Human Lispro 0 unit 03/30/24 17:00 04/07/24 11:27 Insulin Lispro (Admelog) 1 Unit/0.01 Ml Unit SC 04/29/24 16:59 Not Given Q6HR ROGER Protocol Levothyroxine Sodium 75 mcg 04/04/24 06:00 04/07/24 05:19 Levothyroxine Sodium 25 Mcg Tablet NG 05/04/24 05:59 75 mcg ACBR ROGER Administration Midodrine 10 mg 04/03/24 14:00 04/07/24 13:21 Midodrine 5 Mg Tablet NG 05/03/24 13:59 10 mg TID ROGER Administration Multivitamins/Minerals 15 ml 04/05/24 16:45 04/07/24 08:04 Multivitamin 15 Ml Udc GT 05/05/24 16:44 15 ml QDAY ROGER Administration Ondansetron HCl 4 mg 03/30/24 16:17 Ondansetron Inj 2 Mg/Ml Inj 2 Ml IV 04/29/24 16:16 Q6H PRN NAUSEA OR VOMITING Protocol Pantoprazole Sodium 40 mg 03/30/24 16:30 04/07/24 08:04 Pantoprazole Inj 40 Mg Vial IVP 04/29/24 16:29 40 mg QDAY ROGER Administration Sennosides 8.8 mg 04/06/24 17:33 04/07/24 08:03 Sennosides Syrup 8.8 Mg/5 Ml Udc NG 05/06/24 17:32 8.8 mg QDAY PRN Administration CONSTIPATION Protocol Thiamine HCl 100 mg 03/30/24 16:45 04/07/24 08:05 Thiamine Inj 100 Mg/Ml Vial 2 Ml IVP 04/29/24 16:44 100 mg QDAY ROGER Administration Plan Ms. 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 Per chart review and patient's daughter at bedside states patient have been declining physical activity for the past 2 months. She used to be able to walk herself to the restroom, feed herself, and walk around using walker and be able to communicate. But she has become increasingly depressed and bedbound for the last 1 week she has been having urinary incontinence and decreased oral intake. Patient was found unresponsive for which the family called ambulance. In the ED her blood glucose was found to be 13 she received D10 and her blood glucose improved and as well as her mentation. Patient was admitted to the hospital for possible PEG tube placement and treatment of bilateral pneumonia. On 04/02/2024 patient had a rapid response called for blood pressure of 75/44 maintaining MAP below 65 patient was given 1L bolus of normal saline without improvement of blood pressure and MAP; patient was upgraded to the ICU and Levophed was started. Neuro #History of CVA - Pt has a stroke in 2021 with residual deficit on the right side and global aphasia #Acute metabolic encephalopathy secondary to hypoglycemia -resolved -On admission patient's was altered with blood glucose was 13 and patient received D10 and her mentation improved to baseline -Patient's daughter have reported that for the past 2 months patient has become increasingly less physically active Cardio #Shock - septic shock? 05/23 to staph bacteremia -on admission pts. BC on 03/30 showed staph bacteremia in 1 of the 2 cultures, Pt has been on antibiotics -started levophed started on 04/03- -midodrine 10mg TID -Dobutamine drip started on 04/04 and D/c'd on 04/05 -vasopressin started on 04/04 and titrating it down as able -repeat echo04/05- EF 45-50% and mild to moderate MR -500ml Bolus LR given 04/07 with Albumin #Newly diagnosed CHF DDx- takatsubo cardiomyopathy -Pt. may have developed takotsubo cardiomyopathy. Per Pt.'s daughter Tamia her (their father) sent her from [place] recently because he was unable to take care of her. And he does not communicate with her which has caused the Pt. to become increasingly withdrawn and poor oral intake. Patient also lost her grandson that she raised approximately a year ago. -EF 35-40 on echo 03/31 --> repeat echo 04/05 EF 45-50% and mild to moderate MR -In light of shock, will hold guideline directed medical therapy and will resume when able #Hx HTN - home meds on hold # Hx. HLD - resumed home atorvastatin #Troponinemia- resolved -on admission ? peaked at 1.033, without ST or T wave changes on EKG Pul #Pneumonia likely community acquired pneumonia with gram-positive organism found on blood cultures on 03/30 -Repeat chest x-ray today showed worsening diffuse significant bilateral pneumonia -on admission Pts. WBC was 15.2 --> 9.2- -repeat chest x-ray showed worsening bilateral pneumonia, and patient has developed a productive cough - patient is on sufficient coverage with antibiotics -D/c Azithro 04/02-04/07 -Patient is on Rocephin 04/02- ID #Pneumonia #Bacteremia -Blood cultures on 03/30/2024-grew Staph aureus on 1 of 2 -Blood cultures since then, urine cultures and MRSA - negative -Repeat chest x-ray 04/06/2024 showed worsening pneumonia -On antibiotics Rocephin -repeat blood cultures from 04/05 prelim no growth GI #Severe Malnutrition -Failure to thrive- patient's BMI is <22 and age >70 -Per patient's daughter, patient has poor oral intake and for 2 months was hiding food under the couch and bed and they often have to feed her with a syringe -likely secondary to poor oral intake -Per [employer] recommendations- Glucerna 1.2 at 20 ml/hr, Thiamine 100mg/day for 7 days, Multivitamins ordered # NG tube - resume trickle feeds at 20cc with no water flush #Hypoalbuminemia -Albumin is 2.4- likely secondary to nutritional deficiency -Will continue to treat underlying cause by giving adequate nutrition -Colloid fluid bolus given on 04/03, 04/07 Endo #History of type 2 diabetes -Hemoglobin A1c on 1211 is 6.1, blood glucose 110 -Insulin sliding scale ordered #History of hypothyroidism -TSH 17.5, free T4 0.44 during this admission -Will increase home levothyroxine from 50 mcg to 75 mcg through NG tube Renal # No active problems Heme #Acute anemia - stable -Hemoglobin 9.2 and hematocrit 26.6 -no signs of active bleeding -will continue to monitor with daily CBC -will transfuse with pRBCs if Hgb <7 DVT prophylaxis-Lovenox Skin #Sacral ulcer -Patient has 2 ulcers in the sacrum -Smaller 1 appears to be stage II and the bigger one appears to be stage III -Frequent pressure redistribution -Wound care is ordered Disposition: ICU for pressor support DVT Prophylaxis: enoxaparin 40mg Qdaily GI Prophylaxis: Pantoprozol-40 IV Qday Diet: NG glucerna 1.2 at 20ml/hr, Code status: DNR/DNI Assessment and plan discussed with my attending physician Dr. Diana Zaman ([id number])- Internal medicine resident Attending Provider Attestation/Addendum TOTAL CC TIME: 45 MIN I saw and evaluated the patient. I reviewed the resident?s note and agree with findings and plan as documented in the resident?s note. Upon my evaluation, this patient had a high probability of imminent or life- threatening deterioration due to septic shock, although improving which required my direct attention, intervention, and personal management. This time is exclusive of time spent on procedures, which are documented separately if performed.
--- NOTE | 2024-04-07 17:54 | PD.RESPRO ---
Documentation for date of: 04/07/24 Exam Vital Signs Temp Pulse Resp BP Pulse Ox O2 Del Method O2 Flow Rate 98 F 73 15 107/68 97 Oxy Mask 2 04/07/24 16:00 04/07/24 17:00 04/07/24 17:00 04/07/24 17:00 04/07/24 17:00 04/07/24 06:00 04/07/24 10:14 FiO2 3 04/07/24 03:30 Objective Labs 04/07/24 05:39 04/07/24 05:39 Labs: Laboratory Results - last 24 hr 04/03/24 04/07/24 01:57 05:39 WBC 8.0 RBC 3.03 L Hgb 9.2 L Hct 26.6 L MCV 88 MCH 30.4 MCHC 34.6 RDW Std Deviation 45.6 Plt Count 135 L D Neut % (Auto) 84 H Lymph % (Auto) 12 [place] % (Auto) 2 Eos % (Auto) 1 Baso % (Auto) 0 Neut # (Auto) 6.8 Lymph # (Auto) 1.0 [place] # (Auto) 0.2 Eos # (Auto) 0.1 Baso # (Auto) 0.0 Immature Gran # (Auto) 0.04 H Absolute Nucleated RBC 0.00 Immature Gran % 1 H Nucleated RBC % 0 Sodium 136 Potassium 3.9 Chloride 106 Carbon Dioxide 24.3 Anion Gap 6 L BUN 10 Creatinine 0.4 L Estim Creat Clear Calc 70.6 eGFR > 60 BUN/Creatinine Ratio 25 H Glucose 129 H Calculated Osmolality 272 L Calcium 7.7 L Corrected Calcium 8.9 Phosphorus 3.1 Magnesium 1.9 Total Bilirubin 0.2 L AST 50 H ALT 28 Alkaline Phosphatase 261 H Total Protein 5.0 L Albumin 2.5 L Globulin 2.5 Albumin/Globulin Ratio 1.0 L Ur Collection Type Clean Catch Urine Color Yellow Urine Clarity Turbid A Urine pH 6.0 Ur Specific [place] 1.023 Urine Protein Trace Urine Glucose (UA) Negative Urine Ketones Negative Urine Blood 2+ A Urine Nitrite Negative Urine Bilirubin Negative Urine Urobilinogen (Auto) Negative Ur Leukocyte Esterase Positive Urine RBC 420 H Urine WBC 46 H Ur Squamous Epith Cells 0 Urine Bacteria 1+ A Urine Yeast (Budding) Present A ABG Interpretation ABG results: 03/30/24 04/01/24 04/01/24 13:55 10:25 17:20 ABG pH 7.48 H 7.52 H 7.47 H ABG pCO2 34 31 L 34 ABG pO2 300 H 155 H D 36 L* D ABG HCO3 25 25 25 ABG O2 Saturation 100 H 100 H 70 L ABG Base Excess 2 3 1 VBG pH VBG pCO2 VBG pO2 VBG Base Excess 04/04/24 13:52 ABG pH ABG pCO2 ABG pO2 ABG HCO3 ABG O2 Saturation ABG Base Excess VBG pH 7.43 VBG pCO2 19 L VBG pO2 136 H VBG Base Excess -10 L Quality Measures Quality Measures stroke Suspected type of Stroke: Unknown at this time Tenecteplase given: Reason(s) Tenecteplase not given: Outside the time window not given Assessment & Plan Assessment Current Active Medications: Generic Name Dose Route Start Last Admin Trade Name Freq PRN Reason Stop Dose Admin Acetaminophen 650 mg 03/30/24 16:17 Acetaminophen 325 Mg Tablet PO 04/29/24 16:16 Q6H PRN Fever >101.5 Acetaminophen 650 mg 03/30/24 16:17 04/07/24 08:08 Acetaminophen 325 Mg Tablet PO 04/29/24 16:16 650 mg Q6H PRN Administration PAIN SCALE 1-3 (mild Aspirin 81 mg 04/06/24 07:35 04/07/24 08:04 Aspirin 81 Mg Chew NG 05/01/24 18:44 81 mg QDAY ROGER Administration Atorvastatin Calcium 80 mg 04/06/24 07:35 04/06/24 21:31 Atorvastatin Calcium 20 Mg Tablet NG 05/01/24 20:59 80 mg HS ROGER Administration Bisacodyl 10 mg 03/30/24 19:00 04/07/24 08:05 Bisacodyl 10 Mg Supp [place] 04/29/24 18:59 10 mg QDAY ROGER Administration Protocol Calcium Carbonate 600 mg 04/03/24 09:45 04/07/24 08:04 Calcium Carbonate 600 Mg Tablet NG 05/03/24 09:44 600 mg QDAY ROGER Administration Dextrose 25 ml 03/30/24 16:22 04/01/24 04:58 Dextrose 50%-Water Inj 50 Ml Syringe IV 04/29/24 16:21 25 ml Q15MIN PRN Administration BG 50-70 responsive npo pt Dextrose 50 ml 03/30/24 16:22 Dextrose 50%-Water Inj 50 Ml Syringe IV 04/29/24 16:21 Q15MIN PRN BG <50 OR BG <70 & pt unresponsive Enoxaparin Sodium 40 mg 04/04/24 09:00 04/07/24 08:30 Enoxaparin Sod Inj 40 Mg/0.4 Ml Syringe SC 04/18/24 08:59 40 mg QDAY ROGER Administration Folic Acid 1 mg 03/30/24 16:45 04/07/24 08:05 Folic Acid Inj 1 Mg/0.2 Ml IVP 04/29/24 16:44 1 mg QDAY ROGER Administration Glucagon 1 mg 03/30/24 16:22 Glucagon Inj 1 Mg Vial IM Q15MIN PRN BG <70, and no IV access Ceftriaxone Sodium 2 gm/ 100 mls @ 200 mls/hr 04/02/24 09:00 04/07/24 08:03 Sodium Chloride IV 04/08/24 08:59 200 mls/hr QDAY ROGER Administration Norepinephrine/Dextrose 8 mg in 250 mls @ 3.956 mls/hr 04/07/24 14:32 Levophed In D5w 8mg/250ml IV 05/02/24 20:06 .Q24H PRN PER protocol Protocol 0.05 MCG/KG/MIN Lactated Ringer's 500 mls @ 250 mls/hr 04/07/24 15:56 04/07/24 16:03 Lactated Ringers IV 04/07/24 17:55 250 mls/hr .Q2H ONE Administration Insulin Human Lispro 0 unit 03/30/24 17:00 04/07/24 17:22 Insulin Lispro (Admelog) 1 Unit/0.01 Ml Unit SC 04/29/24 16:59 Not Given Q6HR [facility] Protocol Levothyroxine Sodium 75 mcg 04/04/24 06:00 04/07/24 05:19 Levothyroxine Sodium 25 Mcg Tablet NG 05/04/24 05:59 75 mcg ACBR ROGER Administration Midodrine 10 mg 04/03/24 14:00 04/07/24 13:21 Midodrine 5 Mg Tablet NG 05/03/24 13:59 10 mg TID ROGER Administration Multivitamins/Minerals 15 ml 04/05/24 16:45 04/07/24 08:04 Multivitamin 15 Ml Udc GT 05/05/24 16:44 15 ml QDAY ROGER Administration Ondansetron HCl 4 mg 03/30/24 16:17 Ondansetron Inj 2 Mg/Ml Inj 2 Ml IV 04/29/24 16:16 Q6H PRN NAUSEA OR VOMITING Protocol Pantoprazole Sodium 40 mg 03/30/24 16:30 04/07/24 08:04 Pantoprazole Inj 40 Mg Vial IVP 04/29/24 16:29 40 mg QDAY ROGER Administration Sennosides 8.8 mg 04/06/24 17:33 04/07/24 08:03 Sennosides Syrup 8.8 Mg/5 Ml Udc NG 05/06/24 17:32 8.8 mg QDAY PRN Administration CONSTIPATION Protocol Thiamine HCl 100 mg 03/30/24 16:45 04/07/24 08:05 Thiamine Inj 100 Mg/Ml Vial 2 Ml IVP 04/29/24 16:44 100 mg QDAY ROGER Administration
--- NOTE | 2024-04-07 19:53 | PD.IMPROG ---
Documentation for date of: 04/07/24 Subjective Subjective Interval history: Patient DNR/DNI but not comfort care Family still wants to wait till the patient is out of the ICU for consideration for a PEG placed Exam Vital Signs Temp Pulse Resp BP Pulse Ox O2 Del Method O2 Flow Rate 98 F 66 0 L 99/54 L 99 Oxy Mask 2 04/07/24 16:00 04/07/24 18:00 04/07/24 18:00 04/07/24 18:00 04/07/24 18:00 04/07/24 06:00 04/07/24 10:14 FiO2 3 04/07/24 03:30 Objective Labs 04/07/24 05:39 04/07/24 05:39 Labs: Laboratory Results - last 24 hr 04/03/24 04/07/24 01:57 05:39 WBC 8.0 RBC 3.03 L Hgb 9.2 L Hct 26.6 L MCV 88 MCH 30.4 MCHC 34.6 RDW Std Deviation 45.6 Plt Count 135 L D Neut % (Auto) 84 H Lymph % (Auto) 12 [place] % (Auto) 2 Eos % (Auto) 1 Baso % (Auto) 0 Neut # (Auto) 6.8 Lymph # (Auto) 1.0 [place] # (Auto) 0.2 Eos # (Auto) 0.1 Baso # (Auto) 0.0 Immature Gran # (Auto) 0.04 H Absolute Nucleated RBC 0.00 Immature Gran % 1 H Nucleated RBC % 0 Sodium 136 Potassium 3.9 Chloride 106 Carbon Dioxide 24.3 Anion Gap 6 L BUN 10 Creatinine 0.4 L Estim Creat Clear Calc 70.6 eGFR > 60 BUN/Creatinine Ratio 25 H Glucose 129 H Calculated Osmolality 272 L Calcium 7.7 L Corrected Calcium 8.9 Phosphorus 3.1 Magnesium 1.9 Total Bilirubin 0.2 L AST 50 H ALT 28 Alkaline Phosphatase 261 H Total Protein 5.0 L Albumin 2.5 L Globulin 2.5 Albumin/Globulin Ratio 1.0 L Ur Collection Type Clean Catch Urine Color Yellow Urine Clarity Turbid A Urine pH 6.0 Ur Specific [place] 1.023 Urine Protein Trace Urine Glucose (UA) Negative Urine Ketones Negative Urine Blood 2+ A Urine Nitrite Negative Urine Bilirubin Negative Urine Urobilinogen (Auto) Negative Ur Leukocyte Esterase Positive Urine RBC 420 H Urine WBC 46 H Ur Squamous Epith Cells 0 Urine Bacteria 1+ A Urine Yeast (Budding) Present A Impressions Impression: # Failure to thrive Await family's decision ABG Interpretation ABG results: 03/30/24 04/01/24 04/01/24 13:55 10:25 17:20 ABG pH 7.48 H 7.52 H 7.47 H ABG pCO2 34 31 L 34 ABG pO2 300 H 155 H D 36 L* D ABG HCO3 25 25 25 ABG O2 Saturation 100 H 100 H 70 L ABG Base Excess 2 3 1 VBG pH VBG pCO2 VBG pO2 VBG Base Excess 04/04/24 13:52 ABG pH ABG pCO2 ABG pO2 ABG HCO3 ABG O2 Saturation ABG Base Excess VBG pH 7.43 VBG pCO2 19 L VBG pO2 136 H VBG Base Excess -10 L Assessment & Plan A&P Narrative 79-year-old female with past medical history of hypertension, hyperlipidemia, 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 1. Acute decompensated systolic heart failure (EF 45 to 50%) 2. NSTEMI 3. Essential hypertension ?Given patient's elevated troponins which peaked at 1.033 and down trended this is most likely NSTEMI type II likely demand ischemia ?Given patient is a poor candidate for heart catheterization at this time due to other comorbidities we will treat medically for now ?Patient's blood pressure has been under control during her hospital stay. ?Echo done on 03/31/2024 has had the following findings: Negative bubble study. TTE is suboptimal to rule out PFO or ASD. Consider GLORIA if high clincial suspicion. Normal LV size. Moderate to severe LV systolic dysfunction with an EF of around 35 to 40%.Severe hypokinesis of the mid to apical septum, apical anterior and apical anterolateral segments and akinetic apex indicating possible LAD involvement versus Takotsubo syndrome. Difficult to comment on apical thrombus due to lack of definity. Normal RV size and function. Mild TR Moderate MAC. Mild MR Mild AV sclerosis without stenosis with mild AI. ?Patient most likely has some underlying CAD, but given multiple comorbidities and current clinical status she is not a good candidate for heart catheterization and family is aware of this and are in agreement. -Patient is currently on norepinephrine at 3.836 mL/h as well as midodrine 5 mg 3 times daily ? Patient's differential diagnosis includes Takotsubo versus LAD involvement given her, but given her multiple comorbidities, bedbound status, and severe contractions she is not a good candidate for heart catheterization given that she could not lay flat on the Manager Control table. Should be attributed medically for now. -Echo on 04/05/2024 had the following findings: Normal left ventricular size, wall thickness. Low normal systolic function. Estimated 45-50%. RV is normal in size and systolic function. The estimated RVSP, 34 mmHg. RAP 5. Moderate MAC. Mild to moderate MR. Mild sclerosis without stenosis. Mild AI. -Findings showed significant improvement, but was on pressors and could indicate possible Takotsubo syndrome which could be possibly secondary to the sepsis Plan: ?Recommend to hold off on goal-directed medical therapy with beta-devon, Entresto as well as spironolactone as patient is still hypotensive and requiring increase of vasopressor. -Continue pressor support for now. -can start patient in oral diuresis if BP allows and patient becomes fluid overloaded. ?Patient should also be on aspirin and statin ?No need to trend troponins 4. Acute encephalopathy 5. Hypoglycemia 6. DM2 ?Patient has been taking glyburide 5 mg as well as metformin 625 mg 3 times daily which could have precipitated his patient hypoglycemia in the event that she has been having poor oral intake. ? Continue current management as per primary care team 7. Failure to thrive ?Patient may benefit from PEG tube placement as she has been having poor oral intake for the past few weeks. ? Recommend to follow GI recommendations ? Continue current management as per primary care team 8. CVA with residual right-sided deficits 9. Hyperlipidemia ? Continue current management as primary care team Rao Dodson M.D. Interventional Cardiology Time Spent With Patient Time: Total time spent is greater than 50% in coordination of care (as documented) at patient's floor/unit and/or counseling patient:
[2024-04-07] MEDS: ATORVASTATIN CALCIUM 20 MG TABLET 80 MG NG (20:17)
[2024-04-07] MEDS: Norepinephrine/D5W 8mg/250ml 8 MG/250 ML BAG 7.913 MG IV (22:23)
[2024-04-08] VITALS (120 sets, daily range): BP systolic 76–142; BP diastolic 41–78; PULSE 61–105; RESP 0–94; TEMP 36.2–36.5; O2SAT 91–100; BMI 19.5
[2024-04-08] MEDS: MIDODRINE 5 MG TABLET 10 MG NG ×3 (05:16→21:20)
[2024-04-08] MEDS: LEVOTHYROXINE SODIUM 25 MCG TABLET 75 MCG NG (05:16)
[2024-04-08 07:59] LABS: Basophils % (Auto) 0 % (0-2.5); Eosinophils # (Auto) 0.1 Thou/mm3 (0.0-0.5); Eosinophils % (Auto) 1 % (0-10); Hematocrit 26.1 % (36.0-46.0); Immature Granulocytes % (Auto) 0 % (0-0); Immature Granulocytes Auto 0.04 Thou/mm3 (0.00-0.00); Lymphocytes # (Auto) 0.8 Thou/mm3 (1.0-4.8); Lymphocytes % (Auto) 8 % (10-50); Mean Corpuscular HGB Conc 34.5 g/dl (31.0-37.0); Mean Corpuscular Hemoglobin 30.6 pg (25.0-35.0); Mean Corpuscular Volume 89 fL (80-100); Monocytes # (Auto) 0.2 Thou/mm3 (0.0-0.8); Monocytes % (Auto) 2 % (0-12); Neutrophils # (Auto) 8.2 Thou/mm3 (1.8-7.7); Neutrophils % (Auto) 89 % (37-80); Nucleated Red Blood Cell % 0 /100 WBC (0); Platelet Count 138 Thou/mm3 (140-440); RDW Standard Deviation 46.9 fL (36.4-46.3); Red Blood Count 2.94 Miln/mm3 (4.00-5.20); White Blood Count 9.3 Thou/mm3 (3.6-11.0)
--- NOTE | 2024-04-08 08:31 | ESPR_ITS ---
Documentation for date of: 04/08/24 Subjective Subjective Interval history: Patient was examined bedside this morning in ICU, no major changes noted overnight Exam Vital Signs Temp Pulse Resp BP Pulse Ox O2 Del Method O2 Flow Rate 97.7 F 91 14 105/61 96 Oxy Mask 1 04/08/24 07:45 04/08/24 07:45 04/08/24 07:45 04/08/24 07:45 04/08/24 07:45 04/08/24 07:45 04/08/24 07:45 FiO2 3 04/07/24 03:30 Narrative Exam GENERAL: Comfortable adult seen resting comfortably in hospital bed, no acute distress HEENT: Normocephalic, atraumatic. Pupils are equal and reactive. Oral mucosa is moist. NG tube in place NECK: Supple, nontender, no JVD CHEST: Symmetrical, atraumatic and with equal expansion ,Nontender on palpation CARDIOVASCULAR: Heart regular rhythm & rate. S1/S2. no murmur or gallop rub or extra beats. LUNGS: Clear to auscultation bilaterally with symmetrical chest rise. No laboring tachypnea or wheezing. No intercostal subcostal retraction. No rales and no rhonchi. ABDOMEN: Soft, flat, nontender to palpation, no guarding or rebound tenderness. Active and normal bowel sounds. SKIN: Warm and dry, 2 sacral ulcers, smaller one appears to be stage 2 and larger one appears to be stage 3 NEURO: open eyes, unable to folow commands Cranial nerves II through XII grossly intact. Objective Labs 04/10/24 05:25 04/10/24 05:25 ABG Interpretation ABG results: 03/30/24 04/01/24 04/01/24 13:55 10:25 17:20 ABG pH 7.48 H 7.52 H 7.47 H ABG pCO2 34 31 L 34 ABG pO2 300 H 155 H D 36 L* D ABG HCO3 25 25 25 ABG O2 Saturation 100 H 100 H 70 L ABG Base Excess 2 3 1 VBG pH VBG pCO2 VBG pO2 VBG Base Excess 04/04/24 13:52 ABG pH ABG pCO2 ABG pO2 ABG HCO3 ABG O2 Saturation ABG Base Excess VBG pH 7.43 VBG pCO2 19 L VBG pO2 136 H VBG Base Excess -10 L Quality Measures Quality Measures stroke Suspected type of Stroke: Unknown at this time Tenecteplase given: Reason(s) Tenecteplase not given: Outside the time window not given Rehab services: PT evaluation ordered (icu critically ill ) VTE Prophylaxis: pharmaceutical Antithrombotic by day 2:: not indicated (describe) Statin ordered: >75 y/o moderate or high intensity dose Anticoagulation ordered for A- fib or flutter (current or hx): not indicated Advance care planning discussed with:: child Assessment & Plan Assessment Current Active Medications: Generic Name Dose Route Start Last Admin Trade Name Freq PRN Reason Stop Dose Admin Acetaminophen 650 mg 03/30/24 16:17 Acetaminophen 325 Mg Tablet PO 04/29/24 16:16 Q6H PRN Fever >101.5 Acetaminophen 650 mg 03/30/24 16:17 04/07/24 22:25 Acetaminophen 325 Mg Tablet PO 04/29/24 16:16 650 mg Q6H PRN Administration PAIN SCALE 1-3 (mild Aspirin 81 mg 04/06/24 07:35 04/07/24 08:04 Aspirin 81 Mg Chew NG 05/01/24 18:44 81 mg QDAY ROGER Administration Atorvastatin Calcium 80 mg 04/06/24 07:35 04/07/24 20:17 Atorvastatin Calcium 20 Mg Tablet NG 05/01/24 20:59 80 mg HS ROGER Administration Bisacodyl 10 mg 03/30/24 19:00 04/07/24 08:05 Bisacodyl 10 Mg Supp [place] 04/29/24 18:59 10 mg QDAY ROGER Administration Protocol Calcium Carbonate 600 mg 04/03/24 09:45 04/07/24 08:04 Calcium Carbonate 600 Mg Tablet NG 05/03/24 09:44 600 mg QDAY ROGER Administration Dextrose 25 ml 03/30/24 16:22 04/01/24 04:58 Dextrose 50%-Water Inj 50 Ml Syringe IV 04/29/24 16:21 25 ml Q15MIN PRN Administration BG 50-70 responsive npo pt Dextrose 50 ml 03/30/24 16:22 Dextrose 50%-Water Inj 50 Ml Syringe IV 04/29/24 16:21 Q15MIN PRN BG <50 OR BG <70 & pt unresponsive Enoxaparin Sodium 40 mg 04/04/24 09:00 04/07/24 08:30 Enoxaparin Sod Inj 40 Mg/0.4 Ml Syringe SC 04/18/24 08:59 40 mg QDAY ROGER Administration Folic Acid 1 mg 03/30/24 16:45 04/07/24 08:05 Folic Acid Inj 1 Mg/0.2 Ml IVP 04/29/24 16:44 1 mg QDAY ROGER Administration Glucagon 1 mg 03/30/24 16:22 Glucagon Inj 1 Mg Vial IM Q15MIN PRN BG <70, and no IV access Ceftriaxone Sodium 2 gm/ 100 mls @ 200 mls/hr 04/02/24 09:00 04/07/24 21:42 Sodium Chloride IV 04/08/24 08:59 Infused QDAY ROGER Infusion Norepinephrine/Dextrose 8 mg in 250 mls @ 3.956 mls/hr 04/07/24 14:32 04/08/24 08:02 Levophed In D5w 8mg/250ml IV 05/02/24 20:06 0.08 mcg/kg/min .Q24H PRN 6.33 mls/hr PER protocol Titration Protocol 0.05 MCG/KG/MIN Insulin Human Lispro 0 unit 03/30/24 17:00 04/08/24 05:16 Insulin Lispro (Admelog) 1 Unit/0.01 Ml Unit SC 04/29/24 16:59 Not Given Q6HR ROGER Protocol Levothyroxine Sodium 75 mcg 04/04/24 06:00 04/08/24 05:16 Levothyroxine Sodium 25 Mcg Tablet NG 05/04/24 05:59 75 mcg ACBR ROGER Administration Midodrine 10 mg 04/03/24 14:00 04/08/24 05:16 Midodrine 5 Mg Tablet NG 05/03/24 13:59 10 mg TID ROGER Administration Multivitamins/Minerals 15 ml 04/05/24 16:45 04/07/24 08:04 Multivitamin 15 Ml Udc GT 05/05/24 16:44 15 ml QDAY ROGER Administration Ondansetron HCl 4 mg 03/30/24 16:17 Ondansetron Inj 2 Mg/Ml Inj 2 Ml IV 04/29/24 16:16 Q6H PRN NAUSEA OR VOMITING Protocol Pantoprazole Sodium 40 mg 03/30/24 16:30 04/07/24 08:04 Pantoprazole Inj 40 Mg Vial IVP 04/29/24 16:29 40 mg QDAY ROGER Administration Sennosides 8.8 mg 04/06/24 17:33 04/07/24 08:03 Sennosides Syrup 8.8 Mg/5 Ml Udc NG 05/06/24 17:32 8.8 mg QDAY PRN Administration CONSTIPATION Protocol Thiamine HCl 100 mg 03/30/24 16:45 04/07/24 08:05 Thiamine Inj 100 Mg/Ml Vial 2 Ml IVP 04/29/24 16:44 100 mg QDAY ROGER Administration Plan 79 yo female with PMH of 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 Per daughter patient has been aphasic since last stroke, however she was able to walk with a walker and eat by herself until aproximately 2 months ago where she started progressively declining, decreasing oral intake, less active. The day of admission around 3am patient was found by daughter unresponsive and called EMS. On arrival patient was found with GCS of 3 glucose measured was 13, she was given D10 and repeat BS was 96. #Acute metabolic encephalopathy, improving -Likely in the setting of hypoglycemia and sepsis. -Head CT was negative for Negative for acute hemorrhage, mass effect or midline shift. Head/Neck CTA showed 90% plus stenosis right carotid bifurcation proximal right internal carotid artery, No cerebral large vessel arterial occlusions. -MRI brain confirmed no acute infarction, prominent moderate chronic white matter changes. -Echocardiogram:Negative bubble study. -patient prognosis is poor #90%right stenosis internal carotid Patient not candidate for endarterectomy -Recommend start dual antiplatelet after PEG tube placement -Continue atorvastatin Patient's care discussed with attending physician, Dr Oumou Em MD PGY3 Attending Provider Attestation/Addendum I personally have seen and examined the patient at the bedside and agree with resident findings, assessment and plan of care. Continue with pressors.
[2024-04-08] MEDS: PANTOPRAZOLE INJ 40 MG VIAL IVP (08:34)
[2024-04-08] MEDS: MULTIVITAMIN 15 ML UDC GT (08:35)
[2024-04-08] MEDS: bisacodyL 10 MG SUPP PR (08:35)
[2024-04-08] MEDS: FOLIC ACID INJ 1 MG/0.2 ML IVP (08:35)
[2024-04-08] MEDS: THIAMINE INJ 100 MG/ML VIAL 2 ML IVP (08:35)
[2024-04-08] MEDS: ASPIRIN 81 MG CHEW NG (08:35)
[2024-04-08] MEDS: ENOXAPARIN SOD INJ 40 MG/0.4 ML SYRINGE SC (08:35)
[2024-04-08] MEDS: CALCIUM CARBONATE 600 MG TABLET NG (08:35)
[2024-04-08 08:41] LABS: Alanine Aminotransferase 23 U/L (10-49); Albumin, Serum 2.4 gm/dL (3.4-4.8); Alkaline Phosphatase 237 U/L (46-116); Anion Gap 6 (7-16); Aspartate Amino Transferase 41 U/L (0-34); BUN/Creatinine Ratio 25 Ratio (12-20); Bilirubin,Total 0.2 mg/dL (0.3-1.2); Blood Urea Nitrogen 10 mg/dL (9-23); Calcium 8.1 mg/dL (8.3-10.6); Calcium (Corrected) 9.4 mg/dL (8.5-10.1); Carbon Dioxide 26.2 mMol/L (20.0-31.0); Chloride 106 mMol/L (98-107); Creatinine (Component) 0.4 mg/dL (0.6-1.3); Estimated Creatinine Clearance 70.6 mL/min (>60); Globulin 2.5 gm/dL (2.3-3.5); Glucose 163 mg/dL (74-106); Magnesium 1.8 mg/dL (1.6-2.6); Osmolality,Calculated 278 (275-295); Phosphorous 2.2 mg/dL (2.4-5.1); Sodium 138 mMol/L (136-145); Total Protein 4.9 gm/dL (5.7-8.2); eGFR > 60 See Note
--- NOTE | 2024-04-08 09:43 | PD.RESPRO ---
Documentation for date of: 04/08/24 Subjective Subjective Interval history: Patient was seen and examined at bedside this morning. No overnight events, was sinus rhythm on monitoring analyst review. Patient's clinical condition shows slight improvement, but still on norepinephrine and midodrine for blood pressure support. Echo on 04/05/2024 had the following findings: Normal left ventricular size, wall thickness. Low normal systolic function. Estimated 45-50%. RV is normal in size and systolic function. The estimated RVSP, 34 mmHg. RAP 5. Moderate MAC. Mild to moderate MR. Mild sclerosis without stenosis. Mild AI. Findings showed significant improvement, but was on pressors and could indicate possible Takotsubo syndrome which could be possibly secondary to the sepsis Patient currently DNR/DNI Potassium 3.9 and magnesium 1.9 today, recommend to replete potassium magnesium to keep above 4 and 2 respectively to avoid any further arrhythmias. Can start patient in oral diuresis if BP allows and patient becomes fluid overloaded Exam Vital Signs Temp Pulse Resp BP Pulse Ox O2 Del Method O2 Flow Rate 97.7 F 91 13 98/65 93 L Room Air 1 04/08/24 07:45 04/08/24 09:00 04/08/24 09:00 04/08/24 09:00 04/08/24 09:00 04/08/24 08:47 04/08/24 07:45 FiO2 3 04/07/24 03:30 Narrative Exam General:nonverbal, cachectic, temporal wasting, fragile, thin Eyes: able to trace Ears: No visible ear discharge Nose: No visible nasal discharge. Mouth/Throat: Dry mucous membranes,poor dentattion Neck: Neck supple, non-tender, no cervical lymphadenopathy. Lungs: Clear LEONEL to auscultation and percussion, No accessory muscle use. Cardio: Normal S1/S2, regular rhythm, no murmurs, no JVD Abdomen: Soft, non-tender, no palpable masses, peristalsis present, no guarding or rebound. Extremities: Symmetrical, contractures of LEONEL LE, no peripheral edema , non-tender, peripheral pulses presents, LEONEL UE swelling likely due to IV lines Skin: No rashes, no lesions, warm to touch. Neuro: Could not be assessed due to patient's current condition, able to move all extremities's Objective Labs 04/08/24 07:10 04/08/24 07:10 Labs: Laboratory Results - last 24 hr 04/08/24 07:10 WBC 9.3 RBC 2.94 L Hgb 9.0 L Hct 26.1 L MCV 89 MCH 30.6 MCHC 34.5 RDW Std Deviation 46.9 H Plt Count 138 L Neut % (Auto) 89 H Lymph % (Auto) 8 L [place] % (Auto) 2 Eos % (Auto) 1 Baso % (Auto) 0 Neut # (Auto) 8.2 H Lymph # (Auto) 0.8 L [place] # (Auto) 0.2 Eos # (Auto) 0.1 Baso # (Auto) 0.0 Immature Gran # (Auto) 0.04 H Absolute Nucleated RBC 0.00 Immature Gran % 0 Nucleated RBC % 0 Sodium 138 Potassium 4.0 Chloride 106 Carbon Dioxide 26.2 Anion Gap 6 L BUN 10 Creatinine 0.4 L Estim Creat Clear Calc 70.6 eGFR > 60 BUN/Creatinine Ratio 25 H Glucose 163 H Calculated Osmolality 278 Calcium 8.1 L Corrected Calcium 9.4 Phosphorus 2.2 L Magnesium 1.8 Total Bilirubin 0.2 L AST 41 H ALT 23 Alkaline Phosphatase 237 H D Total Protein 4.9 L Albumin 2.4 L Globulin 2.5 Albumin/Globulin Ratio 1.0 L ABG Interpretation ABG results: 03/30/24 04/01/24 04/01/24 13:55 10:25 17:20 ABG pH 7.48 H 7.52 H 7.47 H ABG pCO2 34 31 L 34 ABG pO2 300 H 155 H D 36 L* D ABG HCO3 25 25 25 ABG O2 Saturation 100 H 100 H 70 L ABG Base Excess 2 3 1 VBG pH VBG pCO2 VBG pO2 VBG Base Excess 04/04/24 13:52 ABG pH ABG pCO2 ABG pO2 ABG HCO3 ABG O2 Saturation ABG Base Excess VBG pH 7.43 VBG pCO2 19 L VBG pO2 136 H VBG Base Excess -10 L Quality Measures Quality Measures stroke Suspected type of Stroke: Unknown at this time Tenecteplase given: Reason(s) Tenecteplase not given: Outside the time window not given Rehab services: PT evaluation ordered VTE Prophylaxis: pharmaceutical Antithrombotic by day 2:: not indicated (describe) Statin ordered: >75 y/o moderate or high intensity dose Anticoagulation ordered for A-fib or flutter (current or hx): not indicated Advance care planning discussed with:: patient Assessment & Plan Assessment Current Active Medications: Generic Name Dose Route Start Last Admin Trade Name [place] PRN Reason Stop Dose Admin Acetaminophen 650 mg 03/30/24 16:17 Acetaminophen 325 Mg Tablet PO 04/29/24 16:16 Q6H PRN Fever >101.5 Acetaminophen 650 mg 03/30/24 16:17 04/07/24 22:25 Acetaminophen 325 Mg Tablet PO 04/29/24 16:16 650 mg Q6H PRN Administration PAIN SCALE 1-3 (mild Aspirin 81 mg 04/06/24 07:35 04/08/24 08:35 Aspirin 81 Mg Chew NG 05/01/24 18:44 81 mg QDAY ROGER Administration Atorvastatin Calcium 80 mg 04/06/24 07:35 04/07/24 20:17 Atorvastatin Calcium 20 Mg Tablet NG 05/01/24 20:59 80 mg HS ROGER Administration Bisacodyl 10 mg 03/30/24 19:00 04/08/24 08:35 Bisacodyl 10 Mg Supp [place] 04/29/24 18:59 10 mg QDAY ROGER Administration Protocol Calcium Carbonate 600 mg 04/03/24 09:45 04/08/24 08:35 Calcium Carbonate 600 Mg Tablet NG 05/03/24 09:44 600 mg QDAY ROGER Administration Dextrose 25 ml 03/30/24 16:22 04/01/24 04:58 Dextrose 50%-Water Inj 50 Ml Syringe IV 04/29/24 16:21 25 ml Q15MIN PRN Administration BG 50-70 responsive npo pt Dextrose 50 ml 03/30/24 16:22 Dextrose 50%-Water Inj 50 Ml Syringe IV 04/29/24 16:21 Q15MIN PRN BG <50 OR BG <70 & pt unresponsive Enoxaparin Sodium 40 mg 04/04/24 09:00 04/08/24 08:35 Enoxaparin Sod Inj 40 Mg/0.4 Ml Syringe SC 04/18/24 08:59 40 mg QDAY ROGER Administration Folic Acid 1 mg 03/30/24 16:45 04/08/24 08:35 Folic Acid Inj 1 Mg/0.2 Ml IVP 04/29/24 16:44 1 mg QDAY ROGER Administration Glucagon 1 mg 03/30/24 16:22 Glucagon Inj 1 Mg Vial IM Q15MIN PRN BG <70, and no IV access Norepinephrine/Dextrose 8 mg in 250 mls @ 3.956 mls/hr 04/07/24 14:32 04/08/24 09:04 Levophed In D5w 8mg/250ml IV 05/02/24 20:06 0.06 mcg/kg/min .Q24H PRN 4.748 mls/hr PER protocol Titration Protocol 0.05 MCG/KG/MIN Insulin Human Lispro 0 unit 03/30/24 17:00 04/08/24 05:16 Insulin Lispro (Admelog) 1 Unit/0.01 Ml Unit SC 04/29/24 16:59 Not Given Q6HR ROGER Protocol Levothyroxine Sodium 75 mcg 04/04/24 06:00 04/08/24 05:16 Levothyroxine Sodium 25 Mcg Tablet NG 05/04/24 05:59 75 mcg ACBR ROGER Administration Midodrine 10 mg 04/03/24 14:00 04/08/24 05:16 Midodrine 5 Mg Tablet NG 05/03/24 13:59 10 mg TID ROGER Administration Multivitamins/Minerals 15 ml 04/05/24 16:45 04/08/24 08:35 Multivitamin 15 Ml Udc GT 05/05/24 16:44 15 ml QDAY ROGER Administration Ondansetron HCl 4 mg 03/30/24 16:17 Ondansetron Inj 2 Mg/Ml Inj 2 Ml IV 04/29/24 16:16 Q6H PRN NAUSEA OR VOMITING Protocol Pantoprazole Sodium 40 mg 03/30/24 16:30 04/08/24 08:34 Pantoprazole Inj 40 Mg Vial IVP 04/29/24 16:29 40 mg QDAY ROGER Administration Sennosides 8.8 mg 04/06/24 17:33 04/07/24 08:03 Sennosides Syrup 8.8 Mg/5 Ml Udc NG 05/06/24 17:32 8.8 mg QDAY PRN Administration CONSTIPATION Protocol Thiamine HCl 100 mg 03/30/24 16:45 04/08/24 08:35 Thiamine Inj 100 Mg/Ml Vial 2 Ml IVP 04/29/24 16:44 100 mg QDAY ROGER Administration Plan 79-year-old female with past medical history of hypertension, hyperlipidemia, 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 1. Acute decompensated systolic heart failure (EF 45 to 50%) 2. NSTEMI 3. Essential hypertension ?Given patient's elevated troponins which peaked at 1.033 and down trended this is most likely NSTEMI type II likely demand ischemia ?Given patient is a poor candidate for heart catheterization at this time due to other comorbidities we will treat medically for now ?Patient's blood pressure has been under control during her hospital stay. ?Echo done on 03/31/2024 has had the following findings: Negative bubble study. TTE is suboptimal to rule out PFO or ASD. Consider GLORIA if high clincial suspicion. Normal LV size. Moderate to severe LV systolic dysfunction with an EF of around 35 to 40%.Severe hypokinesis of the mid to apical septum, apical anterior and apical anterolateral segments and akinetic apex indicating possible LAD involvement versus Takotsubo syndrome. Difficult to comment on apical thrombus due to lack of definity. Normal RV size and function. Mild TR Moderate MAC. Mild MR Mild AV sclerosis without stenosis with mild AI. ?Patient most likely has some underlying CAD, but given multiple comorbidities and current clinical status she is not a good candidate for heart catheterization and family is aware of this and are in agreement. -Patient is currently on norepinephrine as well as midodrine 5 mg 3 times daily ? Patient's differential diagnosis includes Takotsubo versus LAD involvement given her, but given her multiple comorbidities, bedbound status, and severe contractions she is not a good candidate for heart catheterization given that she could not lay flat on the Principal [employer] table. Should be attributed medically for now. -Echo on 04/05/2024 had the following findings: Normal left ventricular size, wall thickness. Low normal systolic function. Estimated 45-50%. RV is normal in size and systolic function. The estimated RVSP, 34 mmHg. RAP 5. Moderate MAC. Mild to moderate MR. Mild sclerosis without stenosis. Mild AI. -Findings showed significant improvement, but was on pressors and could indicate possible Takotsubo syndrome which could be possibly secondary to the sepsis Plan: ?Recommend to hold off on goal-directed medical therapy with beta-devon, Entresto as well as spironolactone as patient is still hypotensive and requiring increase of vasopressor. -Continue pressor support for now. -can start patient in oral diuresis if BP allows and patient becomes fluid overloaded. ?Patient should also be on aspirin and statin ?No need to trend troponins 4. Acute encephalopathy 5. Hypoglycemia 6. DM2 ?Patient has been taking glyburide 5 mg as well as metformin 625 mg 3 times daily which could have precipitated his patient hypoglycemia in the event that she has been having poor oral intake. ? Continue current management as per primary care team 7. Failure to thrive ?Patient may benefit from PEG tube placement as she has been having poor oral intake for the past few weeks. ? Recommend to follow GI recommendations ? Continue current management as per primary care team 8. CVA with residual right-sided deficits 9. Hyperlipidemia ? Continue current management as primary care team Continue rest of management as per primary team. We are grateful to be able to participate in Mrs. Rudd's care. Thank you for the consult Plan of care discussed with attending [place], Dr. Ivory Iniguez MD PGY-1 Attending Provider Attestation/Addendum I have personally seen and examined the patient separately on the above date of service and discussed the plan of care with the resident. I reviewed the resident Dr. Richard consultation progress note and agree with the resident findings and plan in the note above and have also edited the documentation to reflect my findings and plan. Rao Dodson M.D. Interventional Cardiology
[2024-04-08] MEDS: INSULIN LISPRO (AdmeLOG) 1 UNIT/0.01 ML UNIT SC (12:26)
--- NOTE | 2024-04-08 15:37 | PC.SS ---
Update: Patient on room air. Patient receiving pressors. Plan is for the patient to obtain PEG tube today.
--- NOTE | 2024-04-08 16:14 | PC.DIETICIAN ---
Nutrition prescription (updated) If PEG tube is placed, consider: Glucerna 1.2 at 20 ml/hr via PEG tube by pump. Advance 10 ml every 8 hrs to goal rate of 50 ml/hr x 22 hrs. If no IV fluids, water flushes of 35 ml/hr (or per MD). -Hold TF for one hour before and after levothyroxine administration-
[2024-04-08] MEDS: RINGERS LACTATED 500 ML 500 ML 999 ML IV (16:40)
--- NOTE | 2024-04-08 17:57 | ESPR_ITS ---
<Statement entered by Keyla Ortiz MD - 04/09/24 13:55> TOTAL TIME: 45MINUTES ON DIRECT MEDICAL CARE, MANAGEMENT - COORDINATION AND COUNSELING > 50% OF TOTAL TIME I saw and evaluated the patient. I reviewed the resident?s note and agree with findings and plan as documented in the resident?s note. She is improving and off of pressors. More animated in bed as well. Afebrile. Urine output was declining but her p.o. intake has been poor and we have limited IV fluids. Additional LR bolus was administered. She is pending PEG tube placement later today. Family updated. Central line will be removed after PEG tube is placed Documentation for date of: 04/08/24 Subjective Subjective Interval history: 04/03: Pt is an overnight upgrade.Pt has an rapid response called for hypotension, Pt received 1L bolus NS without improvement of the BP. Pt was upgraded to the ICU for pressor support and started on levophed. Pt. 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 overnight pt. has 300 cc of urine output. 04/04: no acute overnight events. Pt. urine output was about 130cc and 1 BM overnight. Pt. continues to require higher rate of levophed , midrodrine 10 TIDdespite that she required dobutamine this morning as pt's MAP continues to drop below 60. Pt is alert, awake and is able to follow commands. on cheeta today pt. was not fluid responsive with TPR 1990, SVI 27, CI 1.8. 04/05: no acute over night events. Pt. is saturating on 5L O2 via oxymask. Pt is alert and awake. Pt. MAP continues to improve, currently above 80 therefore will discontinue dobutamine and will titrate down vasopressin and levophed. Bedside echo showed improved contractility of the ventricles therefore we will repeat echo to see if there is improvement from previous EF of 35-40%. Pt's family at bedside asked to change code status from full code to DNR as they do not want her to go through additional pain and suffering if she was to have cardiac or respiratory arrest. Per dietitian recommendations we have added thiamine for 7days and multivitamins day to her dysphagia 2 diet. 04/06: No acute overnight events. Patient is alert, and awake she is able to follow commands. Patient is saturating on 2 L of oxygen via oxy mask. Patient has developed a productive cough, but is afebrile and no leukocytosis. Will repeat chest x-rays. Patient also has been having very small bowel movement, for which we will order senna. Patient's diet was advanced to blenderized however she is holding onto the food in her mouth and not swallowing therefore will DC the blenderized oral diet to prevent aspiration. we will continue tube feeds via NG and increase to 20ml/h and will follow dietitian recommendations. 04/07:no acute overnight events. Pt is alert, awake and follow commands. Pt is saturating on 2L O2 via oxymask. Pt. still requires pressor support due to MAP below 65. repeat CXR show worsening pneumonia, will continue antibiotics for total 14 days and repeat prelim blood cultures are negative. Pt. continues to have mild productive cough , will add chest physiotherapy for 20 mins BID. 04/08: No acute overnight events. Patient is off the pressors since this morning, she is saturating on 2 L of oxygen via OxyMask. since pt. is off the pressor support therefore she is clinically stable to go ahead for PEG tube placement today. Exam Vital Signs Temp Pulse Resp BP Pulse Ox O2 Del Method O2 Flow Rate 97.2 F 92 14 115/61 96 Room Air 1 04/08/24 11:30 04/08/24 16:45 04/08/24 16:45 04/08/24 16:45 04/08/24 16:45 04/08/24 14:15 04/08/24 07:45 FiO2 3 04/07/24 03:30 Narrative Exam GENERAL: Awake, elderly thin non female, Not in acute distress, is able to follow command NEURO: alert, motor deficit in the right and upper and lower extremities HEENT: Atraumatic, Normocephalic. mucous membranes moist. Eyes open, symmetrical, & clear HEART: Faint Heart Sounds LUNGS: Clear to auscultation with no wheezing or crackles. ABDOMEN: soft, non-distended, non-tender, bowel sounds heard, no guarding or rebound tenderness SKIN: 2 sacral ulcers, smaller one appears to be stage 2 and larger one appears to be stage 3 EXTREMITIES: 1+ pitting edema bilaterally on LE, non pitting edema on right hand, pedal pulses palpated, contracted lower extremities Objective Labs 04/08/24 07:10 04/08/24 07:10 Labs: Laboratory Results - last 24 hr 04/08/24 07:10 WBC 9.3 RBC 2.94 L Hgb 9.0 L Hct 26.1 L MCV 89 MCH 30.6 MCHC 34.5 RDW Std Deviation 46.9 H Plt Count 138 L Neut % (Auto) 89 H Lymph % (Auto) 8 L [place] % (Auto) 2 Eos % (Auto) 1 Baso % (Auto) 0 Neut # (Auto) 8.2 H Lymph # (Auto) 0.8 L [place] # (Auto) 0.2 Eos # (Auto) 0.1 Baso # (Auto) 0.0 Immature Gran # (Auto) 0.04 H Absolute Nucleated RBC 0.00 Immature Gran % 0 Nucleated RBC % 0 Sodium 138 Potassium 4.0 Chloride 106 Carbon Dioxide 26.2 Anion Gap 6 L BUN 10 Creatinine 0.4 L Estim Creat Clear Calc 70.6 eGFR > 60 BUN/Creatinine Ratio 25 H Glucose 163 H Calculated Osmolality 278 Calcium 8.1 L Corrected Calcium 9.4 Phosphorus 2.2 L Magnesium 1.8 Total Bilirubin 0.2 L AST 41 H ALT 23 Alkaline Phosphatase 237 H D Total Protein 4.9 L Albumin 2.4 L Globulin 2.5 Albumin/Globulin Ratio 1.0 L ABG Interpretation ABG results: 03/30/24 04/01/24 04/01/24 13:55 10:25 17:20 ABG pH 7.48 H 7.52 H 7.47 H ABG pCO2 34 31 L 34 ABG pO2 300 H 155 H D 36 L* D ABG HCO3 25 25 25 ABG O2 Saturation 100 H 100 H 70 L ABG Base Excess 2 3 1 VBG pH VBG pCO2 VBG pO2 VBG Base Excess 04/04/24 13:52 ABG pH ABG pCO2 ABG pO2 ABG HCO3 ABG O2 Saturation ABG Base Excess VBG pH 7.43 VBG pCO2 19 L VBG pO2 136 H VBG Base Excess -10 L Quality Measures Quality Measures stroke Suspected type of Stroke: Unknown at this time Tenecteplase given: Reason(s) Tenecteplase not given: Outside the time window not given Rehab services: PT evaluation ordered (currently in ICU) VTE Prophylaxis: pharmaceutical Antithrombotic by day 2:: not indicated (describe) Statin ordered: >75 y/o moderate or high intensity dose Anticoagulation ordered for A- fib or flutter (current or hx): not indicated Advance care planning discussed with:: child Assessment & Plan Assessment Current Active Medications: Generic Name Dose Route Start Last Admin Trade Name Freq PRN Reason Stop Dose Admin Acetaminophen 650 mg 03/30/24 16:17 Acetaminophen 325 Mg Tablet PO 04/29/24 16:16 Q6H PRN Fever >101.5 Acetaminophen 650 mg 03/30/24 16:17 04/07/24 22:25 Acetaminophen 325 Mg Tablet PO 04/29/24 16:16 650 mg Q6H PRN Administration PAIN SCALE 1-3 (mild Aspirin 81 mg 04/06/24 07:35 04/08/24 08:35 Aspirin 81 Mg Chew NG 05/01/24 18:44 81 mg QDAY ROGER Administration Atorvastatin Calcium 80 mg 04/06/24 07:35 04/07/24 20:17 Atorvastatin Calcium 20 Mg Tablet NG 05/01/24 20:59 80 mg HS ROGER Administration Bisacodyl 10 mg 03/30/24 19:00 04/08/24 08:35 Bisacodyl 10 Mg Supp IA 04/29/24 18:59 10 mg QDAY ROGER Administration Protocol Calcium Carbonate 600 mg 04/03/24 09:45 04/08/24 08:35 Calcium Carbonate 600 Mg Tablet NG 05/03/24 09:44 600 mg QDAY ROGER Administration Dextrose 25 ml 03/30/24 16:22 04/01/24 04:58 Dextrose 50%-Water Inj 50 Ml Syringe IV 04/29/24 16:21 25 ml Q15MIN PRN Administration BG 50-70 responsive npo pt Dextrose 50 ml 03/30/24 16:22 Dextrose 50%-Water Inj 50 Ml Syringe IV 04/29/24 16:21 Q15MIN PRN BG <50 OR BG <70 & pt unresponsive Enoxaparin Sodium 40 mg 04/04/24 09:00 04/08/24 08:35 Enoxaparin Sod Inj 40 Mg/0.4 Ml Syringe SC 04/18/24 08:59 40 mg QDAY ROGER Administration Folic Acid 1 mg 03/30/24 16:45 04/08/24 08:35 Folic Acid Inj 1 Mg/0.2 Ml IVP 04/29/24 16:44 1 mg QDAY ROGER Administration Glucagon 1 mg 03/30/24 16:22 Glucagon Inj 1 Mg Vial IM Q15MIN PRN BG <70, and no IV access Norepinephrine/Dextrose 8 mg in 250 mls @ 3.956 mls/hr 04/07/24 14:32 04/08/24 10:30 Levophed In D5w 8mg/250ml IV 05/02/24 20:06 0 mcg/kg/min .Q24H PRN 0 mls/hr PER protocol Titration Protocol 0.05 MCG/KG/MIN Insulin Human Lispro 0 unit 03/30/24 17:00 04/08/24 12:26 Insulin Lispro (Admelog) 1 Unit/0.01 Ml Unit SC 04/29/24 16:59 1 unit Q6HR ROGER Administration Protocol Levothyroxine Sodium 75 mcg 04/04/24 06:00 04/08/24 05:16 Levothyroxine Sodium 25 Mcg Tablet NG 05/04/24 05:59 75 mcg ACBR ROGER Administration Midodrine 10 mg 04/03/24 14:00 04/08/24 14:19 Midodrine 5 Mg Tablet NG 05/03/24 13:59 10 mg TID ROGER Administration Multivitamins/Minerals 15 ml 04/05/24 16:45 04/08/24 08:35 Multivitamin 15 Ml Udc GT 05/05/24 16:44 15 ml QDAY ROGER Administration Ondansetron HCl 4 mg 03/30/24 16:17 Ondansetron Inj 2 Mg/Ml Inj 2 Ml IV 04/29/24 16:16 Q6H PRN NAUSEA OR VOMITING Protocol Pantoprazole Sodium 40 mg 03/30/24 16:30 04/08/24 08:34 Pantoprazole Inj 40 Mg Vial IVP 04/29/24 16:29 40 mg QDAY ROGER Administration Potassium Phos/Sodium Phos 1 packet 04/08/24 17:56 [facility] Mbdb 1 Packet (1.5 Gm) PO 04/08/24 17:57 X1 ONE Sennosides 8.8 mg 04/06/24 17:33 04/07/24 08:03 Sennosides Syrup 8.8 Mg/5 Ml Udc NG 05/06/24 17:32 8.8 mg QDAY PRN Administration CONSTIPATION Protocol Thiamine HCl 100 mg 03/30/24 16:45 04/08/24 08:35 Thiamine Inj 100 Mg/Ml Vial 2 Ml IVP 04/29/24 16:44 100 mg QDAY ROGER Administration Plan Ms. 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 Per chart review and patient's daughter at bedside states patient have been declining physical activity for the past 2 months. She used to be able to walk herself to the restroom, feed herself, and walk around using walker and be able to communicate. But she has become increasingly depressed and bedbound for the last 1 week she has been having urinary incontinence and decreased oral intake. Patient was found unresponsive for which the family called ambulance. In the ED her blood glucose was found to be 13 she received D10 and her blood glucose improved and as well as her mentation. Patient was admitted to the hospital for possible PEG tube placement and treatment of bilateral pneumonia. On 04/02/2024 patient had a rapid response called for blood pressure of 75/44 maintaining MAP below 65 patient was given 1L bolus of normal saline without improvement of blood pressure and MAP; patient was upgraded to the ICU and Levophed was started. Neuro #History of CVA - Pt has a stroke in 2021 with residual deficit on the right side and global aphasia #Acute metabolic encephalopathy secondary to hypoglycemia -resolved -On admission patient's was altered with blood glucose was 13 and patient received D10 and her mentation improved to baseline -Patient's daughter have reported that for the past 2 months patient has become increasingly less physically active Cardio #Shock - septic shock? 05/23 to staph bacteremia -on admission pts. BC on 03/30 showed staph bacteremia in 1 of the 2 cultures, Pt has been on antibiotics -started levophed started on 04/03- -midodrine 10mg TID -Dobutamine drip started on 04/04 and D/c'd on 04/05 -vasopressin started on 04/04 and titrating it down as able -repeat echo04/05- EF 45-50% and mild to moderate MR -500ml Bolus LR given 04/07 with Albumin #Newly diagnosed CHF DDx- takatsubo cardiomyopathy -Pt. may have developed takotsubo cardiomyopathy. Per Pt.'s daughter Tamia her (their father) sent her from [place] recently because he was unable to take care of her. And he does not communicate with her which has caused the Pt. to become increasingly withdrawn and poor oral intake. Patient also lost her grandson that she raised approximately a year ago. -EF 35-40 on echo 03/31 --> repeat echo 04/05 EF 45-50% and mild to moderate MR -In light of shock, will hold guideline directed medical therapy and will resume when able #Hx HTN - home meds on hold # Hx. HLD - resumed home atorvastatin #Troponinemia- resolved -on admission ? peaked at 1.033, without ST or T wave changes on EKG Pul #Pneumonia likely community acquired pneumonia with gram-positive organism found on blood cultures on 03/30 -Repeat chest x-ray today showed worsening diffuse significant bilateral pneumonia -on admission Pts. WBC was 15.2 --> 9.2- -repeat chest x-ray showed worsening bilateral pneumonia, and patient has developed a productive cough - patient is on sufficient coverage with antibiotics -D/c Azithro 04/02-04/07 -Patient is on Rocephin 04/02- ID #Pneumonia #Bacteremia -Blood cultures on 03/30/2024-grew Staph aureus on 1 of 2 -Blood cultures since then, urine cultures and MRSA - negative -Repeat chest x-ray 04/06/2024 showed worsening pneumonia -On antibiotics Rocephin -repeat blood cultures from 04/05 prelim no growth GI #Severe Malnutrition -Failure to thrive- patient's BMI is <22 and age >70 -Per patient's daughter, patient has poor oral intake and for 2 months was hiding food under the couch and bed and they often have to feed her with a syringe -likely secondary to poor oral intake -Per [employer]ending [employer] recommendations- Glucerna 1.2 at 20 ml/hr, Thiamine 100mg/day for 7 days, Multivitamins ordered # NG tube - resume trickle feeds at 20cc with no water flush #Hypoalbuminemia -Albumin is 2.4- likely secondary to nutritional deficiency -Will continue to treat underlying cause by giving adequate nutrition -Colloid fluid bolus given on 04/03, 04/07 Endo #History of type 2 diabetes -Hemoglobin A1c on 1211 is 6.1, blood glucose 110 -Insulin sliding scale ordered #History of hypothyroidism -TSH 17.5, free T4 0.44 during this admission -Will increase home levothyroxine from 50 mcg to 75 mcg through NG tube Renal # No active problems Heme #Acute anemia - stable -Hemoglobin 9.2 and hematocrit 26.6 -no signs of active bleeding -will continue to monitor with daily CBC -will transfuse with pRBCs if Hgb <7 DVT prophylaxis-Lovenox Skin #Sacral ulcer -Patient has 2 ulcers in the sacrum -Smaller 1 appears to be stage II and the bigger one appears to be stage III -Frequent pressure redistribution -Wound care is ordered Disposition: ICU for pressor support- Pt. is off of pressor support since 04/08 DVT Prophylaxis: enoxaparin 40mg Qdaily GI Prophylaxis: Pantoprozol-40 IV Qday Diet: NG glucerna 1.2 at 20ml/hr, Code status: DNR/DNI Assessment and plan discussed with my attending physician Dr. Diana Zaman ([id number]-[id number])- Internal medicine resident Attending Provider Attestation/Addendum TOTAL CC TIME: 45 MIN I saw and evaluated the patient. I reviewed the resident?s note and agree with findings and plan as documented in the resident?s note. Upon my evaluation, this patient had a high probability of imminent or life- threatening deterioration due to septic shock, although improving which required my direct attention, intervention, and personal management. This time is exclusive of time spent on procedures, which are documented separately if performed.
[2024-04-08] MEDS: NAPH,KPH MBDB 1 PACKET (1.5 GM) PO (19:08)
[2024-04-08] MEDS: ATORVASTATIN CALCIUM 20 MG TABLET 80 MG NG (21:20)
[2024-04-09] VITALS (137 sets, daily range): BP systolic 69–122; BP diastolic 36–82; PULSE 67–127; RESP 2–94; TEMP 36.2–36.9; O2SAT 77–96; BMI 19.5
[2024-04-09] MEDS: MIDODRINE 5 MG TABLET 10 MG NG ×3 (05:03→21:07)
[2024-04-09] MEDS: INSULIN LISPRO (AdmeLOG) 1 UNIT/0.01 ML UNIT SC ×2 (05:03→11:23)
[2024-04-09] MEDS: LEVOTHYROXINE SODIUM 25 MCG TABLET 75 MCG NG (05:03)
[2024-04-09 05:58] LABS: Basophils % (Auto) 0 % (0-2.5); Eosinophils % (Auto) 0 % (0-10); Hematocrit 28.4 % (36.0-46.0); Hemoglobin 9.8 g/dL (12.0-16.0); Immature Granulocytes % (Auto) 1 % (0-0); Immature Granulocytes Auto 0.08 Thou/mm3 (0.00-0.00); Lymphocytes # (Auto) 0.5 Thou/mm3 (1.0-4.8); Lymphocytes % (Auto) 3 % (10-50); Mean Corpuscular HGB Conc 34.5 g/dl (31.0-37.0); Mean Corpuscular Hemoglobin 30.4 pg (25.0-35.0); Mean Corpuscular Volume 88 fL (80-100); Monocytes # (Auto) 0.1 Thou/mm3 (0.0-0.8); Monocytes % (Auto) 1 % (0-12); Neutrophils # (Auto) 14.7 Thou/mm3 (1.8-7.7); Neutrophils % (Auto) 95 % (37-80); Nucleated Red Blood Cell % 0 /100 WBC (0); Platelet Count 133 Thou/mm3 (140-440); RDW Standard Deviation 45.9 fL (36.4-46.3); Red Blood Count 3.22 Miln/mm3 (4.00-5.20); White Blood Count 15.4 Thou/mm3 (3.6-11.0)
[2024-04-09 06:50] LABS: Alanine Aminotransferase 22 U/L (10-49); Albumin, Serum 2.7 gm/dL (3.4-4.8); Alkaline Phosphatase 213 U/L (46-116); Anion Gap 7 (7-16); Aspartate Amino Transferase 33 U/L (0-34); BUN/Creatinine Ratio 26 Ratio (12-20); Bilirubin,Total 0.5 mg/dL (0.3-1.2); Blood Urea Nitrogen 13 mg/dL (9-23); Carbon Dioxide 25.5 mMol/L (20.0-31.0); Chloride 104 mMol/L (98-107); Creatinine (Component) 0.5 mg/dL (0.6-1.3); Estimated Creatinine Clearance 56.5 mL/min (>60); Globulin 2.6 gm/dL (2.3-3.5); Glucose 121 mg/dL (74-106); Magnesium 1.7 mg/dL (1.6-2.6); Osmolality,Calculated 273 (275-295); Phosphorous 2.2 mg/dL (2.4-5.1); Potassium 3.9 mMol/L (3.4-5.1); Sodium 136 mMol/L (136-145); Thyroid Stimulating Hormone 20.58 uIU/mL (0.55-4.78); Total Protein 5.3 gm/dL (5.7-8.2); eGFR > 60 See Note
[2024-04-09] MEDS: ACETAMINOPHEN 325 MG TABLET 650 MG PO ×3 (07:59→21:08)
[2024-04-09] MEDS: MULTIVITAMIN 15 ML UDC GT (07:59)
[2024-04-09] MEDS: FOLIC ACID INJ 1 MG/0.2 ML IVP (08:00)
[2024-04-09] MEDS: THIAMINE INJ 100 MG/ML VIAL 2 ML IVP (08:00)
[2024-04-09] MEDS: PANTOPRAZOLE INJ 40 MG VIAL IVP (08:00)
[2024-04-09] MEDS: CALCIUM CARBONATE 600 MG TABLET NG (08:00)
[2024-04-09] MEDS: ENOXAPARIN SOD INJ 40 MG/0.4 ML SYRINGE SC (08:00)
[2024-04-09] MEDS: NAPH,KPH MBDB 1 PACKET (1.5 GM) PO (08:00)
[2024-04-09] MEDS: bisacodyL 10 MG SUPP PR (08:00)
[2024-04-09] MEDS: ASPIRIN 81 MG CHEW NG (08:00)
[2024-04-09 09:47] LABS: Free T4 (Free Thyroxine) 0.67 ng/dL (0.89-1.76)
--- NOTE | 2024-04-09 10:09 | ESPR_ITS ---
<Statement entered by Keyla Ortiz MD - 04/10/24 20:41> TOTAL CC TIME: 30 MIN I saw and evaluated the patient. I reviewed the resident?s note and agree with findings and plan as documented in the resident?s note. Upon my evaluation, this patient had a high probability of imminent or life- threatening deterioration due to , septic shockwhich required my direct attention, intervention, and personal management. This time is exclusive of time spent on procedures, which are documented separately if performed. was off pressors and then restarted after receiving versed for PEG leukocytosis noted as well but in absence of fevers or other clinical change c/w infx remove CVC once pressors off or close to being weaned off peg placed Documentation for date of: 04/09/24 Subjective Subjective Interval history: 04/05: no acute over night events. Pt. is saturating on 5L O2 via oxymask. Pt is alert and awake. Pt. MAP continues to improve, currently above 80 therefore will discontinue dobutamine and will titrate down vasopressin and levophed. Bedside echo showed improved contractility of the ventricles therefore we will repeat echo to see if there is improvement from previous EF of 35-40%. Pt's family at bedside asked to change code status from full code to DNR as they do not want her to go through additional pain and suffering if she was to have cardiac or respiratory arrest. Per dietitian recommendations we have added thiamine for 7days and multivitamins day to her dysphagia 2 diet. 04/06: No acute overnight events. Patient is alert, and awake she is able to follow commands. Patient is saturating on 2 L of oxygen via oxy mask. Patient has developed a productive cough, but is afebrile and no leukocytosis. Will repeat chest x-rays. Patient also has been having very small bowel movement, for which we will order senna. Patient's diet was advanced to blenderized however she is holding onto the food in her mouth and not swallowing therefore will DC the blenderized oral diet to prevent aspiration. we will continue tube feeds via NG and increase to 20ml/h and will follow dietitian recommendations. 04/07:no acute overnight events. Pt is alert, awake and follow commands. Pt is saturating on 2L O2 via oxymask. Pt. still requires pressor support due to MAP below 65. repeat CXR show worsening pneumonia, will continue antibiotics for total 14 days and repeat prelim blood cultures are negative. Pt. continues to have mild productive cough , will add chest physiotherapy for 20 mins BID. 04/08: No acute overnight events. Patient is off the pressors since this morning, she is saturating on 2 L of oxygen via OxyMask. since pt. is off the pressor support therefore she is clinically stable to go ahead for PEG tube placement today. 04/09: pt. is s/p PEG tube placement, and became hypotensive therefore levophed drip was restarted to maintain MAP above 65. Pt is started on trickle feeds. she is saturating on 3L O2 via nasal cannula. Pts is found to have leukocytosis likely reactive in the setting of procedure. Pt remains afebrile, marbella continue to monitor closely and if she develops a fever with increasing WBC, then will consider BC at that time. Pts repeat TSH is 20.58 and free T4 0.67 therefore will increase levothyroxine to 125mcg. Exam Vital Signs Temp Pulse Resp BP Pulse Ox O2 Del Method O2 Flow Rate 98.5 F 85 20 88/54 L 91 L Nasal Cannula 2 04/09/24 08:00 04/09/24 09:30 04/09/24 09:30 04/09/24 09:30 04/09/24 09:30 04/09/24 09:30 04/09/24 09:30 FiO2 3 04/07/24 03:30 Narrative Exam GENERAL: Awake, elderly thin non female, Not in acute distress, is able to follow command NEURO: alert, motor deficit in the right and upper and lower extremities HEENT: Atraumatic, Normocephalic. mucous membranes moist. Eyes open, symmetrical, & clear HEART: Faint Heart Sounds LUNGS: Clear to auscultation with no wheezing or crackles. ABDOMEN: soft, non-distended, non-tender, bowel sounds heard, no guarding or rebound tenderness, PEG tube in place SKIN: 2 sacral ulcers, smaller one appears to be stage 2 and larger one appears to be stage 3 EXTREMITIES: 1+ pitting edema bilaterally on LE, non pitting edema on right hand, pedal pulses palpated, contracted lower extremities Objective Labs 04/09/24 05:00 04/09/24 05:00 Labs: Laboratory Results - last 24 hr 04/09/24 05:00 WBC 15.4 H D RBC 3.22 L Hgb 9.8 L Hct 28.4 L MCV 88 MCH 30.4 MCHC 34.5 RDW Std Deviation 45.9 Plt Count 133 L Neut % (Auto) 95 H Lymph % (Auto) 3 L [place] % (Auto) 1 Eos % (Auto) 0 Baso % (Auto) 0 Neut # (Auto) 14.7 H Lymph # (Auto) 0.5 L [place] # (Auto) 0.1 Eos # (Auto) 0.0 Baso # (Auto) 0.0 Immature Gran # (Auto) 0.08 H Absolute Nucleated RBC 0.00 Immature Gran % 1 H Nucleated RBC % 0 Sodium 136 Potassium 3.9 Chloride 104 Carbon Dioxide 25.5 Anion Gap 7 BUN 13 Creatinine 0.5 L Estim Creat Clear Calc 56.5 L eGFR > 60 BUN/Creatinine Ratio 26 H Glucose 121 H Calculated Osmolality 273 L Calcium 8.0 L Corrected Calcium 9.0 Phosphorus 2.2 L Magnesium 1.7 Total Bilirubin 0.5 AST 33 ALT 22 Alkaline Phosphatase 213 H D Total Protein 5.3 L Albumin 2.7 L Globulin 2.6 Albumin/Globulin Ratio 1.0 L TSH 20.58 H D Free T4 0.67 L ABG Interpretation ABG results: 03/30/24 04/01/24 04/01/24 13:55 10:25 17:20 ABG pH 7.48 H 7.52 H 7.47 H ABG pCO2 34 31 L 34 ABG pO2 300 H 155 H D 36 L* D ABG HCO3 25 25 25 ABG O2 Saturation 100 H 100 H 70 L ABG Base Excess 2 3 1 VBG pH VBG pCO2 VBG pO2 VBG Base Excess 04/04/24 13:52 ABG pH ABG pCO2 ABG pO2 ABG HCO3 ABG O2 Saturation ABG Base Excess VBG pH 7.43 VBG pCO2 19 L VBG pO2 136 H VBG Base Excess -10 L Quality Measures Quality Measures sepsis Current suspected stage: ruled out Possible source: unknown Blood cultures ordered: completed in ED Antibiotic ordered: Yes Advance care planning discussed with:: child Assessment & Plan Assessment Current Active Medications: Generic Name Dose Route Start Last Admin Trade Name Freq PRN Reason Stop Dose Admin Acetaminophen 650 mg 03/30/24 16:17 Acetaminophen 325 Mg Tablet PO 04/29/24 16:16 Q6H PRN Fever >101.5 Acetaminophen 650 mg 03/30/24 16:17 04/09/24 07:59 Acetaminophen 325 Mg Tablet PO 04/29/24 16:16 650 mg Q6H PRN Administration PAIN SCALE 1-3 (mild Aspirin 81 mg 04/06/24 07:35 04/09/24 08:00 Aspirin 81 Mg Chew NG 05/01/24 18:44 81 mg QDAY ROGER Administration Atorvastatin Calcium 80 mg 04/06/24 07:35 04/08/24 21:20 Atorvastatin Calcium 20 Mg Tablet NG 05/01/24 20:59 80 mg HS ROGER Administration Bisacodyl 10 mg 03/30/24 19:00 04/09/24 08:00 Bisacodyl 10 Mg Supp NM 04/29/24 18:59 10 mg QDAY ROGER Administration Protocol Calcium Carbonate 600 mg 04/03/24 09:45 04/09/24 08:00 Calcium Carbonate 600 Mg Tablet NG 05/03/24 09:44 600 mg QDAY ROGER Administration Dextrose 25 ml 03/30/24 16:22 04/01/24 04:58 Dextrose 50%-Water Inj 50 Ml Syringe IV 04/29/24 16:21 25 ml Q15MIN PRN Administration BG 50-70 responsive npo pt Dextrose 50 ml 03/30/24 16:22 Dextrose 50%-Water Inj 50 Ml Syringe IV 04/29/24 16:21 Q15MIN PRN BG <50 OR BG <70 & pt unresponsive Enoxaparin Sodium 40 mg 04/04/24 09:00 04/09/24 08:00 Enoxaparin Sod Inj 40 Mg/0.4 Ml Syringe SC 04/18/24 08:59 40 mg QDAY ROGER Administration Folic Acid 1 mg 03/30/24 16:45 04/09/24 08:00 Folic Acid Inj 1 Mg/0.2 Ml IVP 04/29/24 16:44 1 mg QDAY ROGER Administration Glucagon 1 mg 03/30/24 16:22 Glucagon Inj 1 Mg Vial IM Q15MIN PRN BG <70, and no IV access Norepinephrine/Dextrose 8 mg in 250 mls @ 3.956 mls/hr 04/07/24 14:32 04/09/24 09:50 Levophed In D5w 8mg/250ml IV 05/02/24 20:06 0.11 mcg/kg/min .Q24H PRN 8.704 mls/hr PER protocol Titration Protocol 0.05 MCG/KG/MIN Insulin Human Lispro 0 unit 03/30/24 17:00 04/09/24 05:03 Insulin Lispro (Admelog) 1 Unit/0.01 Ml Unit SC 04/29/24 16:59 1 unit Q6HR ROGER Administration Protocol Levothyroxine Sodium 125 mcg 04/10/24 06:00 Levothyroxine Sodium 125 Mcg Tablet NG 05/10/24 05:59 ACBR ROGER Midodrine 10 mg 04/03/24 14:00 04/09/24 05:03 Midodrine 5 Mg Tablet NG 05/03/24 13:59 10 mg TID ROGER Administration Multivitamins/Minerals 15 ml 04/05/24 16:45 04/09/24 07:59 Multivitamin 15 Ml Udc GT 05/05/24 16:44 15 ml QDAY ROGER Administration Ondansetron HCl 4 mg 03/30/24 16:17 Ondansetron Inj 2 Mg/Ml Inj 2 Ml IV 04/29/24 16:16 Q6H PRN NAUSEA OR VOMITING Protocol Pantoprazole Sodium 40 mg 03/30/24 16:30 04/09/24 08:00 Pantoprazole Inj 40 Mg Vial IVP 04/29/24 16:29 40 mg QDAY ROGER Administration Sennosides 8.8 mg 04/06/24 17:33 04/07/24 08:03 Sennosides Syrup 8.8 Mg/5 Ml Udc NG 05/06/24 17:32 8.8 mg QDAY PRN Administration CONSTIPATION Protocol Thiamine HCl 100 mg 03/30/24 16:45 04/09/24 08:00 Thiamine Inj 100 Mg/Ml Vial 2 Ml IVP 04/29/24 16:44 100 mg QDAY ROGER Administration Plan Ms. 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 Per chart review and patient's daughter at bedside states patient have been declining physical activity for the past 2 months. She used to be able to walk herself to the restroom, feed herself, and walk around using walker and be able to communicate. But she has become increasingly depressed and bedbound for the last 1 week she has been having urinary incontinence and decreased oral intake. Patient was found unresponsive for which the family called ambulance. In the ED her blood glucose was found to be 13 she received D10 and her blood glucose improved and as well as her mentation. Patient was admitted to the hospital for possible PEG tube placement and treatment of bilateral pneumonia. On 04/02/2024 patient had a rapid response called for blood pressure of 75/44 maintaining MAP below 65 patient was given 1L bolus of normal saline without improvement of blood pressure and MAP; patient was upgraded to the ICU and Levophed was started. Neuro #History of CVA - Pt has a stroke in 2021 with residual deficit on the right side and global aphasia #Acute metabolic encephalopathy secondary to hypoglycemia -resolved -On admission patient's was altered with blood glucose was 13 and patient received D10 and her mentation improved to baseline -Patient's daughter have reported that for the past 2 months patient has become increasingly less physically active Cardio #Shock- - septic shock? 05/23 to staph bacteremia has resolved 04/08 and then patient underwent PEG tube placement procedure requiring versed and became hypotensive and levophed was restarted. -on admission pts. BC on 03/30 showed staph bacteremia in 1 of the 2 cultures, Pt has been on antibiotics -started levophed started on 04/03- -midodrine 10mg TID -Dobutamine drip started on 04/04 and D/c'd on 04/05 -vasopressin started on 04/04 and titrating it down as able -repeat echo04/05- EF 45-50% and mild to moderate MR -500ml Bolus LR given with Albumin #Newly diagnosed CHF - improving DDx- takatsubo cardiomyopathy -Pt. may have developed takotsubo cardiomyopathy. Per Pt.'s daughter Tamia her (their father) sent her from [place] recently because he was unable to take care of her. And he does not communicate with her which has caused the Pt. to become increasingly withdrawn and poor oral intake. Patient also lost her grandson that she raised approximately a year ago. -EF 35-40 on echo 03/31 --> repeat echo 04/05 EF 45-50% and mild to moderate MR -In light of shock, will hold guideline directed medical therapy and will resume when able #Hx HTN - home meds on hold # Hx. HLD - resumed home atorvastatin #Troponinemia- resolved -on admission ? peaked at 1.033, without ST or T wave changes on EKG Pul #Pneumonia likely community acquired pneumonia with gram-positive organism found on blood cultures on 03/30 -Repeat chest x-ray today showed worsening diffuse significant bilateral pneumonia -on admission Pts. WBC was 15.2 --> 9.2- -repeat chest x-ray showed worsening bilateral pneumonia, and patient has developed a productive cough - patient is on sufficient coverage with antibiotics -D/c Azithro 04/02-04/07 -Patient is on Rocephin 04/02- ID #Pneumonia #Bacteremia #leukocytosis -Blood cultures on 03/30/2024-grew Staph aureus on 1 of 2 -Blood cultures since then, urine cultures and MRSA - negative -Repeat chest x-ray 04/06/2024 showed worsening pneumonia Pts is found to have leukocytosis likely reactive in the setting of procedure. Pt remains afebrile, marbella continue to monitor closely and if she develops a fever with increasing WBC, then will consider BC at that time. -On antibiotics Rocephin -repeat blood cultures from 04/05 prelim no growth GI #Severe Malnutrition -Failure to thrive- patient's BMI is <22 and age >70 -Per patient's daughter, patient has poor oral intake and for 2 months was hiding food under the couch and bed and they often have to feed her with a syringe -likely secondary to poor oral intake -Per Intensive Care Ambulance Paramedic recommendations- Glucerna 1.2 at 20 ml/hr, Thiamine 100mg/day for 7 days, Multivitamins ordered # PEG tube - resume trickle feeds at 20cc with no water flush #Hypoalbuminemia -Albumin is 2.4- likely secondary to nutritional deficiency -Will continue to treat underlying cause by giving adequate nutrition -Colloid fluid bolus given on 04/03, 04/07 Endo #History of type 2 diabetes -Hemoglobin A1c on 1210 is 6.1, blood glucose 110 -Insulin sliding scale ordered #History of hypothyroidism -TSH 17.5, free T4 0.44 during this admission -Will increase home levothyroxine from 50 mcg to 75 mcg through NG tube Renal # No active problems Heme #Acute anemia - stable -Hemoglobin 9.8 and hematocrit 28.4 -no signs of active bleeding -will continue to monitor with daily CBC -will transfuse with pRBCs if Hgb <7 DVT prophylaxis-Lovenox Skin #Sacral ulcer -Patient has 2 ulcers in the sacrum -Smaller 1 appears to be stage II and the bigger one appears to be stage III -Frequent pressure redistribution -Wound care is ordered Disposition: ICU for pressor support DVT Prophylaxis: enoxaparin 40mg Qdaily GI Prophylaxis: Pantoprozol-40 IV Qday Diet: PEG tube feedings resumed glucerna 1.2 at 20ml/hr, Code status: DNR/DNI Assessment and plan discussed with my attending physician Dr. Diana Zaman ([id number]-[id number])- Internal medicine resident
--- NOTE | 2024-04-09 10:59 | ESPR_ITS ---
Documentation for date of: 04/09/24 Subjective Subjective Interval history: Met with the family in the ICU room PEG tube is being used and she is at 30 cc an hour enteral hyperalimentation along with water Patient seems more alert Exam Vital Signs Temp Pulse Resp BP Pulse Ox O2 Del Method O2 Flow Rate 98.5 F 85 20 88/54 L 91 L Nasal Cannula 2 04/09/24 08:00 04/09/24 09:30 04/09/24 09:30 04/09/24 09:30 04/09/24 09:30 04/09/24 09:30 04/09/24 09:30 FiO2 3 04/07/24 03:30 Routine Abdominal Exam Comments: PEG site clean no drainage Objective Labs 04/09/24 05:00 04/09/24 05:00 Labs: Laboratory Results - last 24 hr 04/09/24 05:00 WBC 15.4 H D RBC 3.22 L Hgb 9.8 L Hct 28.4 L MCV 88 MCH 30.4 MCHC 34.5 RDW Std Deviation 45.9 Plt Count 133 L Neut % (Auto) 95 H Lymph % (Auto) 3 L [place] % (Auto) 1 Eos % (Auto) 0 Baso % (Auto) 0 Neut # (Auto) 14.7 H Lymph # (Auto) 0.5 L [place] # (Auto) 0.1 Eos # (Auto) 0.0 Baso # (Auto) 0.0 Immature Gran # (Auto) 0.08 H Absolute Nucleated RBC 0.00 Immature Gran % 1 H Nucleated RBC % 0 Sodium 136 Potassium 3.9 Chloride 104 Carbon Dioxide 25.5 Anion Gap 7 BUN 13 Creatinine 0.5 L Estim Creat Clear Calc 56.5 L eGFR > 60 BUN/Creatinine Ratio 26 H Glucose 121 H Calculated Osmolality 273 L Calcium 8.0 L Corrected Calcium 9.0 Phosphorus 2.2 L Magnesium 1.7 Total Bilirubin 0.5 AST 33 ALT 22 Alkaline Phosphatase 213 H D Total Protein 5.3 L Albumin 2.7 L Globulin 2.6 Albumin/Globulin Ratio 1.0 L TSH 20.58 H D Free T4 0.67 L Impressions Impression: # Failure to thrive # PEG placement for enteral hyperalimentation Continue current management ABG Interpretation ABG results: 03/30/24 04/01/24 04/01/24 13:55 10:25 17:20 ABG pH 7.48 H 7.52 H 7.47 H ABG pCO2 34 31 L 34 ABG pO2 300 H 155 H D 36 L* D ABG HCO3 25 25 25 ABG O2 Saturation 100 H 100 H 70 L ABG Base Excess 2 3 1 VBG pH VBG pCO2 VBG pO2 VBG Base Excess 04/04/24 13:52 ABG pH ABG pCO2 ABG pO2 ABG HCO3 ABG O2 Saturation ABG Base Excess VBG pH 7.43 VBG pCO2 19 L VBG pO2 136 H VBG Base Excess -10 L Assessment & Plan A&P Narrative 79-year-old female with past medical history of hypertension, hyperlipidemia, 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 1. Acute decompensated systolic heart failure (EF 45 to 50%) 2. NSTEMI 3. Essential hypertension ?Given patient's elevated troponins which peaked at 1.033 and down trended this is most likely NSTEMI type II likely demand ischemia ?Given patient is a poor candidate for heart catheterization at this time due to other comorbidities we will treat medically for now ?Patient's blood pressure has been under control during her hospital stay. ?Echo done on 03/31/2024 has had the following findings: Negative bubble study. TTE is suboptimal to rule out PFO or ASD. Consider GLORIA if high clincial suspicion. Normal LV size. Moderate to severe LV systolic dysfunction with an EF of around 35 to 40%.Severe hypokinesis of the mid to apical septum, apical anterior and apical anterolateral segments and akinetic apex indicating possible LAD involvement versus Takotsubo syndrome. Difficult to comment on apical thrombus due to lack of definity. Normal RV size and function. Mild TR Moderate MAC. Mild MR Mild AV sclerosis without stenosis with mild AI. ?Patient most likely has some underlying CAD, but given multiple comorbidities and current clinical status she is not a good candidate for heart catheterization and family is aware of this and are in agreement. -Patient is currently on norepinephrine at 3.836 mL/h as well as midodrine 5 mg 3 times daily ? Patient's differential diagnosis includes Takotsubo versus LAD involvement given her, but given her multiple comorbidities, bedbound status, and severe contractions she is not a good candidate for heart catheterization given that she could not lay flat on the Filling Machine Set Up Mechanic table. Should be attributed medically for now. -Echo on 04/05/2024 had the following findings: Normal left ventricular size, wall thickness. Low normal systolic function. Estimated 45-50%. RV is normal in size and systolic function. The estimated RVSP, 34 mmHg. RAP 5. Moderate MAC. Mild to moderate MR. Mild sclerosis without stenosis. Mild AI. -Findings showed significant improvement, but was on pressors and could indicate possible Takotsubo syndrome which could be possibly secondary to the sepsis Plan: ?Recommend to hold off on goal-directed medical therapy with beta-devon, Entresto as well as spironolactone as patient is still hypotensive and requiring increase of vasopressor. -Continue pressor support for now. - Patient clinical condition slowly improving and Levophed requirements are decreasing - Vasopressin and dobutamine was discontinued over the last couple of days. -can start patient in oral diuresis if BP allows and patient becomes fluid overloaded. ?Patient should also be on aspirin and statin ?No need to trend troponins 4. Acute encephalopathy 5. Hypoglycemia 6. DM2 ?Patient has been taking glyburide 5 mg as well as metformin 625 mg 3 times daily which could have precipitated his patient hypoglycemia in the event that she has been having poor oral intake. ? Continue current management as per primary care team 7. Failure to thrive ?Patient may benefit from PEG tube placement as she has been having poor oral intake for the past few weeks. ? Recommend to follow GI recommendations ? Continue current management as per primary care team 8. CVA with residual right-sided deficits 9. Hyperlipidemia ? Continue current management as primary care team Management of rest of the medical conditions as per primary team and other consultants. Thank you for the consult and allowing me to participate in the care of the patient. Cardiology will continue to follow. Rao Dodson M.D. Interventional Cardiology Time Spent With Patient Time: Total time spent is greater than 50% in coordination of care (as documented) at patient's floor/unit and/or counseling patient:
--- NOTE | 2024-04-09 10:59 | PD.RESPRO ---
Documentation for date of: 04/09/24 Subjective Subjective Interval history: Patient was seen and examined at bedside this morning. No overnight events, was sinus rhythm on monitor tech review, but some episodes of tachycardia, likley due to pain Patient's clinical condition improved on NC, but still on norepinephrine and midodrine for blood pressure support. Potassium 3.9 and magnesium 1.7 today, recommend to replete potassium magnesium to keep above 4 and 2 respectively to avoid any further arrhythmias. Can start patient in oral diuresis if BP allows and patient becomes fluid overloaded Echo on 04/05/2024 had the following findings: Normal left ventricular size, wall thickness. Low normal systolic function. Estimated 45-50%. RV is normal in size and systolic function. The estimated RVSP, 34 mmHg. RAP 5. Moderate MAC. Mild to moderate MR. Mild sclerosis without stenosis. Mild AI. Findings showed significant improvement, but was on pressors and could indicate possible Takotsubo syndrome which could be possibly secondary to the sepsis Patient currently DNR/DNI Exam Vital Signs Temp Pulse Resp BP Pulse Ox O2 Del Method O2 Flow Rate 98.5 F 85 20 88/54 L 91 L Nasal Cannula 2 04/09/24 08:00 04/09/24 09:30 04/09/24 09:30 04/09/24 09:30 04/09/24 09:30 04/09/24 09:30 04/09/24 09:30 FiO2 3 04/07/24 03:30 Narrative Exam General:nonverbal, cachectic, temporal wasting, fragile, thin Eyes: able to trace Ears: No visible ear discharge Nose: No visible nasal discharge. Mouth/Throat: Dry mucous membranes,poor dentattion Neck: Neck supple, non-tender, no cervical lymphadenopathy. Lungs: Clear LEONEL to auscultation and percussion, No accessory muscle use. Cardio: Normal S1/S2, regular rhythm, no murmurs, no JVD Abdomen: Soft, non-tender, no palpable masses, peristalsis present, no guarding or rebound. Peg tube in place with no drainage and wrapped by abdominal binder. Extremities: Symmetrical, contractures of LEONEL LE, no peripheral edema , non-tender, peripheral pulses presents, LEONEL UE swelling likely due to IV lines Skin: No rashes, no lesions, warm to touch. Neuro: Could not be assessed due to patient's current condition, able to move all extremities's Objective Labs 04/09/24 05:00 04/09/24 05:00 Labs: Laboratory Results - last 24 hr 04/09/24 05:00 WBC 15.4 H D RBC 3.22 L Hgb 9.8 L Hct 28.4 L MCV 88 MCH 30.4 MCHC 34.5 RDW Std Deviation 45.9 Plt Count 133 L Neut % (Auto) 95 H Lymph % (Auto) 3 L [place] % (Auto) 1 Eos % (Auto) 0 Baso % (Auto) 0 Neut # (Auto) 14.7 H Lymph # (Auto) 0.5 L [place] # (Auto) 0.1 Eos # (Auto) 0.0 Baso # (Auto) 0.0 Immature Gran # (Auto) 0.08 H Absolute Nucleated RBC 0.00 Immature Gran % 1 H Nucleated RBC % 0 Sodium 136 Potassium 3.9 Chloride 104 Carbon Dioxide 25.5 Anion Gap 7 BUN 13 Creatinine 0.5 L Estim Creat Clear Calc 56.5 L eGFR > 60 BUN/Creatinine Ratio 26 H Glucose 121 H Calculated Osmolality 273 L Calcium 8.0 L Corrected Calcium 9.0 Phosphorus 2.2 L Magnesium 1.7 Total Bilirubin 0.5 AST 33 ALT 22 Alkaline Phosphatase 213 H D Total Protein 5.3 L Albumin 2.7 L Globulin 2.6 Albumin/Globulin Ratio 1.0 L TSH 20.58 H D Free T4 0.67 L ABG Interpretation ABG results: 03/30/24 04/01/24 04/01/24 13:55 10:25 17:20 ABG pH 7.48 H 7.52 H 7.47 H ABG pCO2 34 31 L 34 ABG pO2 300 H 155 H D 36 L* D ABG HCO3 25 25 25 ABG O2 Saturation 100 H 100 H 70 L ABG Base Excess 2 3 1 VBG pH VBG pCO2 VBG pO2 VBG Base Excess 04/04/24 13:52 ABG pH ABG pCO2 ABG pO2 ABG HCO3 ABG O2 Saturation ABG Base Excess VBG pH 7.43 VBG pCO2 19 L VBG pO2 136 H VBG Base Excess -10 L Quality Measures Quality Measures stroke Suspected type of Stroke: Unknown at this time Tenecteplase given: Reason(s) Tenecteplase not given: Outside the time window not given Rehab services: PT evaluation ordered VTE Prophylaxis: pharmaceutical Antithrombotic by day 2:: not indicated (describe) Statin ordered: >75 y/o moderate or high intensity dose Anticoagulation ordered for A-fib or flutter (current or hx): not indicated Advance care planning discussed with:: patient Assessment & Plan Assessment Current Active Medications: Generic Name Dose Route Start Last Admin Trade Name Freq PRN Reason Stop Dose Admin Acetaminophen 650 mg 03/30/24 16:17 Acetaminophen 325 Mg Tablet PO 04/29/24 16:16 Q6H PRN Fever >101.5 Acetaminophen 650 mg 03/30/24 16:17 04/09/24 07:59 Acetaminophen 325 Mg Tablet PO 04/29/24 16:16 650 mg Q6H PRN Administration PAIN SCALE 1-3 (mild Aspirin 81 mg 04/06/24 07:35 04/09/24 08:00 Aspirin 81 Mg Chew NG 05/01/24 18:44 81 mg QDAY ROGER Administration Atorvastatin Calcium 80 mg 04/06/24 07:35 04/08/24 21:20 Atorvastatin Calcium 20 Mg Tablet NG 05/01/24 20:59 80 mg HS ROGER Administration Bisacodyl 10 mg 03/30/24 19:00 04/09/24 08:00 Bisacodyl 10 Mg Supp VT 04/29/24 18:59 10 mg QDAY ROGER Administration Protocol Calcium Carbonate 600 mg 04/03/24 09:45 04/09/24 08:00 Calcium Carbonate 600 Mg Tablet NG 05/03/24 09:44 600 mg QDAY ROGER Administration Dextrose 25 ml 03/30/24 16:22 04/01/24 04:58 Dextrose 50%-Water Inj 50 Ml Syringe IV 04/29/24 16:21 25 ml Q15MIN PRN Administration BG 50-70 responsive npo pt Dextrose 50 ml 03/30/24 16:22 Dextrose 50%-Water Inj 50 Ml Syringe IV 04/29/24 16:21 Q15MIN PRN BG <50 OR BG <70 & pt unresponsive Enoxaparin Sodium 40 mg 04/04/24 09:00 04/09/24 08:00 Enoxaparin Sod Inj 40 Mg/0.4 Ml Syringe SC 04/18/24 08:59 40 mg QDAY ROGER Administration Folic Acid 1 mg 03/30/24 16:45 04/09/24 08:00 Folic Acid Inj 1 Mg/0.2 Ml IVP 04/29/24 16:44 1 mg QDAY ROGER Administration Glucagon 1 mg 03/30/24 16:22 Glucagon Inj 1 Mg Vial IM Q15MIN PRN BG <70, and no IV access Norepinephrine/Dextrose 8 mg in 250 mls @ 3.956 mls/hr 04/07/24 14:32 04/09/24 10:19 Levophed In D5w 8mg/250ml IV 05/02/24 20:06 0.13 mcg/kg/min .Q24H PRN 10.286 mls/hr PER protocol Titration Protocol 0.05 MCG/KG/MIN Insulin Human Lispro 0 unit 03/30/24 17:00 04/09/24 05:03 Insulin Lispro (Admelog) 1 Unit/0.01 Ml Unit SC 04/29/24 16:59 1 unit Q6HR ROGER Administration Protocol Levothyroxine Sodium 125 mcg 04/10/24 06:00 Levothyroxine Sodium 125 Mcg Tablet NG 05/10/24 05:59 ACBR ROGER Midodrine 10 mg 04/03/24 14:00 04/09/24 05:03 Midodrine 5 Mg Tablet NG 05/03/24 13:59 10 mg TID ROGER Administration Multivitamins/Minerals 15 ml 04/05/24 16:45 04/09/24 07:59 Multivitamin 15 Ml Udc GT 05/05/24 16:44 15 ml QDAY ROGER Administration Ondansetron HCl 4 mg 03/30/24 16:17 Ondansetron Inj 2 Mg/Ml Inj 2 Ml IV 04/29/24 16:16 Q6H PRN NAUSEA OR VOMITING Protocol Pantoprazole Sodium 40 mg 03/30/24 16:30 04/09/24 08:00 Pantoprazole Inj 40 Mg Vial IVP 04/29/24 16:29 40 mg QDAY ROGER Administration Sennosides 8.8 mg 04/06/24 17:33 04/07/24 08:03 Sennosides Syrup 8.8 Mg/5 Ml Udc NG 05/06/24 17:32 8.8 mg QDAY PRN Administration CONSTIPATION Protocol Thiamine HCl 100 mg 03/30/24 16:45 04/09/24 08:00 Thiamine Inj 100 Mg/Ml Vial 2 Ml IVP 01/09/25 16:44 100 mg QDAY ROGER Administration Plan 79-year-old female with past medical history of hypertension, hyperlipidemia, 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 1. Acute decompensated systolic heart failure (EF 45 to 50%) 2. NSTEMI 3. Essential hypertension ?Given patient's elevated troponins which peaked at 1.033 and down trended this is most likely NSTEMI type II likely demand ischemia ?Given patient is a poor candidate for heart catheterization at this time due to other comorbidities we will treat medically for now ?Patient's blood pressure has been under control during her hospital stay. ?Echo done on 03/31/2024 has had the following findings: Negative bubble study. TTE is suboptimal to rule out PFO or ASD. Consider GLORIA if high clincial suspicion. Normal LV size. Moderate to severe LV systolic dysfunction with an EF of around 35 to 40%.Severe hypokinesis of the mid to apical septum, apical anterior and apical anterolateral segments and akinetic apex indicating possible LAD involvement versus Takotsubo syndrome. Difficult to comment on apical thrombus due to lack of definity. Normal RV size and function. Mild TR Moderate MAC. Mild MR Mild AV sclerosis without stenosis with mild AI. ?Patient most likely has some underlying CAD, but given multiple comorbidities and current clinical status she is not a good candidate for heart catheterization and family is aware of this and are in agreement. -Patient is currently on norepinephrine as well as midodrine 5 mg 3 times daily ? Patient's differential diagnosis includes Takotsubo versus LAD involvement given her, but given her multiple comorbidities, bedbound status, and severe contractions she is not a good candidate for heart catheterization given that she could not lay flat on the Customer Account Administrator table. Should be attributed medically for now. -Echo on 04/05/2024 had the following findings: Normal left ventricular size, wall thickness. Low normal systolic function. Estimated 45-50%. RV is normal in size and systolic function. The estimated RVSP, 34 mmHg. RAP 5. Moderate MAC. Mild to moderate MR. Mild sclerosis without stenosis. Mild AI. -Findings showed significant improvement, but was on pressors and could indicate possible Takotsubo syndrome which could be possibly secondary to the sepsis Plan: ?Recommend to hold off on goal-directed medical therapy with beta-devon, Entresto as well as spironolactone as patient is still hypotensive and requiring increase of vasopressor. -Continue pressor support for now as needed. -can start patient in oral diuresis if BP allows and patient becomes fluid overloaded. ?Patient should also be on aspirin and statin ?No need to trend troponins 4. Acute encephalopathy 5. Hypoglycemia 6. DM2 ?Patient has been taking glyburide 5 mg as well as metformin 625 mg 3 times daily which could have precipitated his patient hypoglycemia in the event that she has been having poor oral intake. ? Continue current management as per primary care team 7. Failure to thrive ?Patient had PEG tube placed last night ? Recommend to follow GI recommendations ? Continue current management as per primary care team 8. CVA with residual right-sided deficits 9. Hyperlipidemia ? Continue current management as primary care team Continue rest of management as per primary team. We are grateful to be able to participate in Mrs. Rudd's care. Thank you for the consult Plan of care discussed with attending Snath Handle Assembler, Dr. Ivory Iniguez MD PGY-1 Attending Provider Attestation/Addendum I have personally seen and examined the patient separately on the above date of service and discussed the plan of care with the resident. I reviewed the resident Dr. Richard consultation progress note and agree with the resident findings and plan in the note above and have also edited the documentation to reflect my findings and plan. Rao Dodson M.D. Interventional Cardiology
--- NOTE | 2024-04-09 12:58 | PC.SS ---
SALVAGE MECHANIC confirmed with patient's daughter that DME (hospital bed and wheelchair) have been delivered to patient's residence.
[2024-04-09] MEDS: RINGERS LACTATED 500 ML 500 ML 999 ML IV (14:02)
[2024-04-09] MEDS: ATORVASTATIN CALCIUM 20 MG TABLET 80 MG NG (21:07)
[2024-04-09] MEDS: Norepinephrine/D5W 8mg/250ml 8 MG/250 ML BAG 8.704 MG IV (21:18)
[2024-04-10] VITALS (111 sets, daily range): BP systolic 73–128; BP diastolic 41–92; PULSE 49–106; RESP 4–25; TEMP 35.9–36.3; O2SAT 83–100; BMI 21.7
--- NOTE | 2024-04-10 00:37 | XR_ITS ---
Examination: AP chest single view Technique one AP portable semiupright chest single view Exam date and time: April 10, 2024 0051 hrs. Comparison April 06, 2024 Indications: Coughing congestion this week. Findings: Extensive bilateral pneumonia Right internal jugular central line tip SVC satisfactory position Mild prominence of ventricle No pneumothorax Prominent vascular congestion Impression: Extensive bilateral pneumonia ARDS pattern Mild associated heart failure
[2024-04-10] MEDS: RINGERS LACTATED 500 ML 500 ML 999 ML IV (00:53)
[2024-04-10 01:15] LABS: Lactate (Lactic Acid) 1.7 mMol/L (0.4-2.0)
[2024-04-10 01:20] LABS: Basophils % (Auto) 0 % (0-2.5); Eosinophils % (Auto) 0 % (0-10); Hematocrit 24.7 % (36.0-46.0); Immature Granulocytes % (Auto) 1 % (0-0); Immature Granulocytes Auto 0.09 Thou/mm3 (0.00-0.00); Lymphocytes # (Auto) 1.1 Thou/mm3 (1.0-4.8); Lymphocytes % (Auto) 7 % (10-50); Mean Corpuscular HGB Conc 34.4 g/dl (31.0-37.0); Mean Corpuscular Hemoglobin 30.8 pg (25.0-35.0); Mean Corpuscular Volume 90 fL (80-100); Monocytes # (Auto) 0.2 Thou/mm3 (0.0-0.8); Monocytes % (Auto) 1 % (0-12); Neutrophils # (Auto) 15.7 Thou/mm3 (1.8-7.7); Neutrophils % (Auto) 92 % (37-80); Nucleated Red Blood Cell % 0 /100 WBC (0); Platelet Count 123 Thou/mm3 (140-440); RDW Standard Deviation 47.4 fL (36.4-46.3); Red Blood Count 2.76 Miln/mm3 (4.00-5.20); White Blood Count 17.1 Thou/mm3 (3.6-11.0)
[2024-04-10 01:25] LABS: Hemoglobin 8.5 g/dL (12.0-16.0)
[2024-04-10] MEDS: PIPER/TAZO INJ 3.375 GM in SODIUM CHLORIDE 0.9% (P) 50 ML IV (01:32)
[2024-04-10] MEDS: Vancomycin Inj 1,000 MG in SODIUM CHLORIDE 0.9% 250 ML 250 ML 150 MG IV (01:38)
[2024-04-10 01:50] LABS: Alanine Aminotransferase 17 U/L (10-49); Albumin, Serum 2.5 gm/dL (3.4-4.8); Albumin/Globulin Ratio 1.1 (1.2-2.2); Alkaline Phosphatase 185 U/L (46-116); Anion Gap 5 (7-16); Aspartate Amino Transferase 31 U/L (0-34); BUN/Creatinine Ratio 30 Ratio (12-20); Bilirubin,Total 0.3 mg/dL (0.3-1.2); Blood Urea Nitrogen 15 mg/dL (9-23); Calcium 7.9 mg/dL (8.3-10.6); Calcium (Corrected) 9.1 mg/dL (8.5-10.1); Carbon Dioxide 25.8 mMol/L (20.0-31.0); Chloride 104 mMol/L (98-107); Creatinine (Component) 0.5 mg/dL (0.6-1.3); Estimated Creatinine Clearance 56.5 mL/min (>60); Globulin 2.3 gm/dL (2.3-3.5); Glucose 118 mg/dL (74-106); Magnesium 1.6 mg/dL (1.6-2.6); Osmolality,Calculated 271 (275-295); Phosphorous 2.4 mg/dL (2.4-5.1); Potassium 3.9 mMol/L (3.4-5.1); Procalcitonin 1.98 ng/ml (0.0-0.49); Sodium 135 mMol/L (136-145); Total Protein 4.8 gm/dL (5.7-8.2); eGFR > 60 See Note
[2024-04-10] MEDS: VASOPRESSIN IN NS IVPB 20 UNIT/100 ML BAG 9 UNIT IV ×2 (03:11→11:40)
[2024-04-10 05:48] LABS: Basophils % (Auto) 0 % (0-2.5); Eosinophils % (Auto) 0 % (0-10); Hematocrit 22.7 % (36.0-46.0); Immature Granulocytes % (Auto) 1 % (0-0); Immature Granulocytes Auto 0.13 Thou/mm3 (0.00-0.00); Lymphocytes # (Auto) 0.9 Thou/mm3 (1.0-4.8); Lymphocytes % (Auto) 5 % (10-50); Mean Corpuscular HGB Conc 34.8 g/dl (31.0-37.0); Mean Corpuscular Hemoglobin 30.9 pg (25.0-35.0); Mean Corpuscular Volume 89 fL (80-100); Monocytes # (Auto) 0.2 Thou/mm3 (0.0-0.8); Monocytes % (Auto) 1 % (0-12); Neutrophils # (Auto) 17.1 Thou/mm3 (1.8-7.7); Neutrophils % (Auto) 93 % (37-80); Nucleated Red Blood Cell % 0 /100 WBC (0); Platelet Count 132 Thou/mm3 (140-440); RDW Standard Deviation 47.6 fL (36.4-46.3); Red Blood Count 2.56 Miln/mm3 (4.00-5.20); White Blood Count 18.4 Thou/mm3 (3.6-11.0)
[2024-04-10] MEDS: PIPER/TAZO 3.375 GM 3.375 GM/50 ML BAG IV ×3 (05:50→21:49)
[2024-04-10] MEDS: LEVOTHYROXINE SODIUM 125 MCG TABLET NG (05:50)
[2024-04-10] MEDS: Magnesium Sulfate 2 GM Ivpb 2 GM/50 ML BAG IV (05:50)
[2024-04-10 05:51] LABS: Hemoglobin 7.9 g/dL (12.0-16.0)
[2024-04-10] MEDS: MIDODRINE 5 MG TABLET 10 MG NG ×3 (05:51→21:49)
[2024-04-10] MEDS: INSULIN LISPRO (AdmeLOG) 1 UNIT/0.01 ML UNIT SC ×3 (06:21→17:46)
[2024-04-10 06:31] LABS: Alanine Aminotransferase 18 U/L (10-49); Albumin, Serum 2.3 gm/dL (3.4-4.8); Albumin/Globulin Ratio 0.9 (1.2-2.2); Alkaline Phosphatase 179 U/L (46-116); Anion Gap 6 (7-16); Aspartate Amino Transferase 23 U/L (0-34); BUN/Creatinine Ratio 38 Ratio (12-20); Bilirubin,Total 0.3 mg/dL (0.3-1.2); Blood Urea Nitrogen 15 mg/dL (9-23); Calcium 7.8 mg/dL (8.3-10.6); Calcium (Corrected) 9.2 mg/dL (8.5-10.1); Carbon Dioxide 26.5 mMol/L (20.0-31.0); Chloride 104 mMol/L (98-107); Creatinine (Component) 0.4 mg/dL (0.6-1.3); Estimated Creatinine Clearance 70.6 mL/min (>60); Globulin 2.5 gm/dL (2.3-3.5); Glucose 138 mg/dL (74-106); Magnesium 1.5 mg/dL (1.6-2.6); Osmolality,Calculated 274 (275-295); Phosphorous 2.6 mg/dL (2.4-5.1); Potassium 3.7 mMol/L (3.4-5.1); Sodium 136 mMol/L (136-145); Total Protein 4.8 gm/dL (5.7-8.2); eGFR > 60 See Note
[2024-04-10] MEDS: FOLIC ACID INJ 1 MG/0.2 ML IVP (08:05)
[2024-04-10] MEDS: MULTIVITAMIN 15 ML UDC GT (08:05)
[2024-04-10] MEDS: THIAMINE INJ 100 MG/ML VIAL 2 ML IVP (08:05)
[2024-04-10] MEDS: ACETAMINOPHEN 325 MG TABLET 650 MG PO ×2 (08:05→15:07)
[2024-04-10] MEDS: PANTOPRAZOLE INJ 40 MG VIAL IVP (08:05)
[2024-04-10] MEDS: CALCIUM CARBONATE 600 MG TABLET NG (08:05)
[2024-04-10] MEDS: ASPIRIN 81 MG CHEW NG (08:05)
[2024-04-10] MEDS: ENOXAPARIN SOD INJ 40 MG/0.4 ML SYRINGE SC (08:06)
[2024-04-10 08:16] LABS: Lactate (Lactic Acid) 0.9 mMol/L (0.4-2.0)
[2024-04-10] MEDS: POTASSIUM CHLORIDE 10% 20 MEQ/15 ML UDC GT (08:48)
[2024-04-10] MEDS: MAGNESIUM OXIDE 400 MG TABLET GT ×2 (08:48→21:49)
[2024-04-10] MEDS: VANCOMYCIN/NS 1 GM IVPB 200 ML IV ×2 (09:31→21:52)
--- NOTE | 2024-04-10 10:47 | PD.RESPRO ---
Documentation for date of: 04/10/24 Subjective Subjective Interval history: Patient was seen and examined at bedside this morning. No overnight events, was sinus rhythm on alarm security or surveillance monitor review, but some inverted T waves. Patient's clinical condition improved on NC, but know on 2 vasopressers and midodrine for blood pressure support. Potassium 3.7 and magnesium 1.5 today, recommend to replete potassium magnesium to keep above 4 and 2 respectively to avoid any further arrhythmias. WBC uptrending could have some aspiration pneumonia Echo on 04/05/2024 had the following findings: Normal left ventricular size, wall thickness. Low normal systolic function. Estimated 45-50%. RV is normal in size and systolic function. The estimated RVSP, 34 mmHg. RAP 5. Moderate MAC. Mild to moderate MR. Mild sclerosis without stenosis. Mild AI. Findings showed significant improvement, but was on pressors and could indicate possible Takotsubo syndrome which could be possibly secondary to the sepsis Patient currently DNR/DNI Exam Vital Signs Temp Pulse Resp BP Pulse Ox O2 Del Method O2 Flow Rate 96.7 F L 63 17 112/64 94 L Nasal Cannula 2 04/10/24 08:00 04/10/24 09:00 04/10/24 09:00 04/10/24 09:00 04/10/24 09:00 04/10/24 09:00 04/10/24 05:56 FiO2 2 04/10/24 09:00 Narrative Exam General:nonverbal, cachectic, temporal wasting, fragile, thin Eyes: able to trace Ears: No visible ear discharge Nose: No visible nasal discharge. Mouth/Throat: Dry mucous membranes,poor dentattion Neck: Neck supple, non-tender, no cervical lymphadenopathy. Lungs: Clear LEONEL to auscultation and percussion, No accessory muscle use. Cardio: Normal S1/S2, regular rhythm, no murmurs, no JVD Abdomen: Soft, non-tender, no palpable masses, peristalsis present, no guarding or rebound. Peg tube in place with no drainage and wrapped by abdominal binder. Extremities: Symmetrical, contractures of LEONEL LE, no peripheral edema , non-tender, peripheral pulses presents, LEONEL UE swelling likely due to IV lines Skin: No rashes, no lesions, warm to touch. Neuro: Could not be assessed due to patient's current condition, able to move all extremities's Objective Labs 04/11/24 04:41 04/11/24 04:41 Labs: Laboratory Results - last 24 hr 04/10/24 04/10/24 04/10/24 01:00 05:25 08:08 WBC 17.1 H 18.4 H RBC 2.76 L 2.56 L Hgb 8.5 L 7.9 L Hct 24.7 L 22.7 L MCV 90 89 MCH 30.8 30.9 MCHC 34.4 34.8 RDW Std Deviation 47.4 H 47.6 H Plt Count 123 L 132 L Neut % (Auto) 92 H 93 H Lymph % (Auto) 7 L 5 L [place] % (Auto) 1 1 Eos % (Auto) 0 0 Baso % (Auto) 0 0 Neut # (Auto) 15.7 H 17.1 H Lymph # (Auto) 1.1 0.9 L [place] # (Auto) 0.2 0.2 Eos # (Auto) 0.0 0.0 Baso # (Auto) 0.0 0.0 Immature Gran # (Auto) 0.09 H 0.13 H Absolute Nucleated RBC 0.00 0.00 Immature Gran % 1 H 1 H Nucleated RBC % 0 0 Sodium 135 L 136 Potassium 3.9 3.7 Chloride 104 104 Carbon Dioxide 25.8 26.5 Anion Gap 5 L 6 L BUN 15 15 Creatinine 0.5 L 0.4 L Estim Creat Clear Calc 56.5 L 70.6 eGFR > 60 > 60 BUN/Creatinine Ratio 30 H 38 H Glucose 118 H 138 H Calculated Osmolality 271 L 274 L Lactic Acid 1.7 0.9 Calcium 7.9 L 7.8 L Corrected Calcium 9.1 9.2 Phosphorus 2.4 2.6 Magnesium 1.6 1.5 L Total Bilirubin 0.3 0.3 AST 31 23 ALT 17 18 Alkaline Phosphatase 185 H D 179 H Total Protein 4.8 L 4.8 L Albumin 2.5 L 2.3 L Globulin 2.3 2.5 Albumin/Globulin Ratio 1.1 L 0.9 L Procalcitonin 1.98 H ABG Interpretation ABG results: 03/30/24 04/01/24 04/01/24 13:55 10:25 17:20 ABG pH 7.48 H 7.52 H 7.47 H ABG pCO2 34 31 L 34 ABG pO2 300 H 155 H D 36 L* D ABG HCO3 25 25 25 ABG O2 Saturation 100 H 100 H 70 L ABG Base Excess 2 3 1 VBG pH VBG pCO2 VBG pO2 VBG Base Excess 04/04/24 13:52 ABG pH ABG pCO2 ABG pO2 ABG HCO3 ABG O2 Saturation ABG Base Excess VBG pH 7.43 VBG pCO2 19 L VBG pO2 136 H VBG Base Excess -10 L Quality Measures Quality Measures sepsis Current suspected stage: sepsis Possible source: unknown Blood cultures ordered: completed in ED Antibiotic ordered: Yes Advance care planning discussed with:: patient Assessment & Plan Assessment Current Active Medications: Generic Name Dose Route Start Last Admin Trade Name Freq PRN Reason Stop Dose Admin Acetaminophen 650 mg 03/30/24 16:17 Acetaminophen 325 Mg Tablet PO 04/29/24 16:16 Q6H PRN Fever >101.5 Acetaminophen 650 mg 03/30/24 16:17 04/10/24 08:05 Acetaminophen 325 Mg Tablet PO 04/29/24 16:16 650 mg Q6H PRN Administration PAIN SCALE 1-3 (mild Aspirin 81 mg 04/06/24 07:35 04/10/24 08:05 Aspirin 81 Mg Chew NG 05/01/24 18:44 81 mg QDAY ROGER Administration Atorvastatin Calcium 80 mg 04/06/24 07:35 04/09/24 21:07 Atorvastatin Calcium 20 Mg Tablet NG 05/01/24 20:59 80 mg HS ROGER Administration Bisacodyl 10 mg 03/30/24 19:00 04/10/24 08:00 Bisacodyl 10 Mg Supp SC 04/29/24 18:59 Not Given QDAY ROGER Protocol Calcium Carbonate 600 mg 04/03/24 09:45 04/10/24 08:05 Calcium Carbonate 600 Mg Tablet NG 05/03/24 09:44 600 mg QDAY ROGER Administration Dextrose 25 ml 03/30/24 16:22 04/01/24 04:58 Dextrose 50%-Water Inj 50 Ml Syringe IV 04/29/24 16:21 25 ml Q15MIN PRN Administration BG 50-70 responsive npo pt Dextrose 50 ml 03/30/24 16:22 Dextrose 50%-Water Inj 50 Ml Syringe IV 04/29/24 16:21 Q15MIN PRN BG <50 OR BG <70 & pt unresponsive Enoxaparin Sodium 40 mg 04/04/24 09:00 04/10/24 08:06 Enoxaparin Sod Inj 40 Mg/0.4 Ml Syringe SC 04/18/24 08:59 40 mg QDAY ROGER Administration Folic Acid 1 mg 03/30/24 16:45 04/10/24 08:05 Folic Acid Inj 1 Mg/0.2 Ml IVP 04/29/24 16:44 1 mg QDAY ROGER Administration Glucagon 1 mg 03/30/24 16:22 Glucagon Inj 1 Mg Vial IM Q15MIN PRN BG <70, and no IV access Norepinephrine/Dextrose 8 mg in 250 mls @ 3.956 mls/hr 04/07/24 14:32 04/10/24 10:00 Levophed In D5w 8mg/250ml IV 05/02/24 20:06 0.15 mcg/kg/min .Q24H PRN 11.869 mls/hr PER protocol Titration Protocol 0.05 MCG/KG/MIN Piperacillin/Tazobactam/Dextrose 3.375 gm in 50 mls @ 12.5 mls/hr 04/10/24 06:00 04/10/24 05:50 Zosyn IV 04/17/24 05:59 12.5 mls/hr Q8HR ROGER Administration Vasopressin/Sodium Chloride 20 unit in 100 mls @ 9 mls/hr 04/10/24 01:13 04/10/24 03:11 Vasostrict/Ns Ivpb IV 05/10/24 01:12 0.03 unit/min .Q11H7M PRN 9 mls/hr PER PROTOCOL Administration Protocol 0.03 UNIT/MIN Vancomycin/Sodium Chloride 200 mls @ 120 mls/hr 04/10/24 10:00 04/10/24 09:31 Vancomycin/Ns 1 Gm Ivpb IV 04/17/24 09:59 120 mls/hr BID@1000,2200 ROGER Administration Protocol Insulin Human Lispro 0 unit 03/30/24 17:00 04/10/24 06:21 Insulin Lispro (Admelog) 1 Unit/0.01 Ml Unit SC 04/29/24 16:59 1 unit Q6HR ROGER Administration Protocol Levothyroxine Sodium 125 mcg 04/10/24 06:00 04/10/24 05:50 Levothyroxine Sodium 125 Mcg Tablet NG 05/10/24 05:59 125 mcg ACBR ROGER Administration Magnesium Oxide 400 mg 04/10/24 09:00 04/10/24 08:48 Magnesium Oxide 400 Mg Tablet GT 05/11/24 15:00 400 mg BID ROGER Administration Midodrine 10 mg 04/03/24 14:00 04/10/24 05:51 Midodrine 5 Mg Tablet NG 05/03/24 13:59 10 mg TID ROGER Administration Multivitamins/Minerals 15 ml 04/05/24 16:45 04/10/24 08:05 Multivitamin 15 Ml Udc GT 05/05/24 16:44 15 ml QDAY ROGER Administration Ondansetron HCl 4 mg 03/30/24 16:17 Ondansetron Inj 2 Mg/Ml Inj 2 Ml IV 04/29/24 16:16 Q6H PRN NAUSEA OR VOMITING Protocol Pantoprazole Sodium 40 mg 03/30/24 16:30 04/10/24 08:05 Pantoprazole Inj 40 Mg Vial IVP 04/29/24 16:29 40 mg QDAY [facility] Administration Pharmacy Consult 1 each 04/10/24 09:00 Vancomycin Pharmacy To Dose 1 Each Each IV 05/10/24 08:59 QDAY PRN PROTOCOL Polyethylene Glycol 17 gm 04/10/24 09:00 04/10/24 08:06 Polyethylene Glycol 17 Gm Packet PO 05/10/24 08:59 Not Given QDAY [facility] Sennosides 8.8 mg 04/06/24 17:33 04/07/24 08:03 Sennosides Syrup 8.8 Mg/5 Ml Udc NG 05/06/24 17:32 8.8 mg QDAY PRN Administration CONSTIPATION Protocol Thiamine HCl 100 mg 03/30/24 16:45 04/10/24 08:05 Thiamine Inj 100 Mg/Ml Vial 2 Ml IVP 04/29/24 16:44 100 mg QDAY ROGER Administration Plan 79-year-old female with past medical history of hypertension, hyperlipidemia, 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 1. Acute decompensated systolic heart failure (EF 45 to 50%) 2. NSTEMI 3. Essential hypertension ?Given patient's elevated troponins which peaked at 1.033 and down trended this is most likely NSTEMI type II likely demand ischemia ?Given patient is a poor candidate for heart catheterization at this time due to other comorbidities we will treat medically for now ?Patient's blood pressure has been under control during her hospital stay. ?Echo done on 03/31/2024 has had the following findings: Negative bubble study. TTE is suboptimal to rule out PFO or ASD. Consider GLORIA if high clincial suspicion. Normal LV size. Moderate to severe LV systolic dysfunction with an EF of around 35 to 40%.Severe hypokinesis of the mid to apical septum, apical anterior and apical anterolateral segments and akinetic apex indicating possible LAD involvement versus Takotsubo syndrome. Difficult to comment on apical thrombus due to lack of definity. Normal RV size and function. Mild TR Moderate MAC. Mild MR Mild AV sclerosis without stenosis with mild AI. ?Patient most likely has some underlying CAD, but given multiple comorbidities and current clinical status she is not a good candidate for heart catheterization and family is aware of this and are in agreement. -Patient is currently on norepinephrine as well as midodrine 5 mg 3 times daily ? Patient's differential diagnosis includes Takotsubo versus LAD involvement given her, but given her multiple comorbidities, bedbound status, and severe contractions she is not a good candidate for heart catheterization given that she could not lay flat on the Pst Specialist table. Should be attributed medically for now. -Echo on 04/05/2024 had the following findings: Normal left ventricular size, wall thickness. Low normal systolic function. Estimated 45-50%. RV is normal in size and systolic function. The estimated RVSP, 34 mmHg. RAP 5. Moderate MAC. Mild to moderate MR. Mild sclerosis without stenosis. Mild AI. -Findings showed significant improvement, but was on pressors and could indicate possible Takotsubo syndrome which could be possibly secondary to the sepsis Plan: ?Recommend to hold off on goal-directed medical therapy with beta-devon, Entresto as well as spironolactone as patient is still hypotensive and requiring increase of vasopressor. -Continue pressor support for now as needed. -can start patient in oral diuresis if BP allows and patient becomes fluid overloaded. ?Patient should also be on aspirin and statin ?No need to trend troponins 4. Acute encephalopathy 5. Hypoglycemia 6. DM2 ?Patient has been taking glyburide 5 mg as well as metformin 625 mg 3 times daily which could have precipitated his patient hypoglycemia in the event that she has been having poor oral intake. ? Continue current management as per primary care team 7. Failure to thrive ?Patient had PEG tube placed last night ? Recommend to follow GI recommendations ? Continue current management as per primary care team 8. CVA with residual right-sided deficits 9. Hyperlipidemia ? Continue current management as primary care team Continue rest of management as per primary team. We are grateful to be able to participate in Mrs. Rudd's care. Thank you for the consult Plan of care discussed with attending Development And Planning Engineer, Dr. Ivory Iniguez MD PGY-1 Attending Provider Attestation/Addendum I have personally seen and examined the patient separately on the above date of service and discussed the plan of care with the resident. I reviewed the resident Dr. Richard consultation progress note and agree with the resident findings and plan in the note above and have also edited the documentation to reflect my findings and plan. Rao Dodson M.D. Interventional Cardiology
[2024-04-10] MEDS: MORPHINE SULF INJ 10 MG/ML VIAL IVP (11:35)
[2024-04-10 12:08] LABS: Collection Type, Urine Catheter; Squamous Epithelial Cell,Urine 0 /hpf (0-5)
[2024-04-10 12:39] LABS: Bilirubin,Urine Negative (Negative); Blood,Urine 1+ (Negative); Budding Yeast,Urine Present; Color,Urine Yellow (Lt Yel-Yel); Glucose, Urine Negative (Negative); Hyphae Yeast Present; Ketones,Urine Negative (Negative); Leukocyte Esterase,Urine Positive (Negative); Nitrite,Urine Negative (Negative); Protein,Urine Trace (Neg - Trace); RBC,Urine 4 /hpf (0-3); Specific Gravity,Urine 1.023 (1.001-1.035); Urobilinogen,Urine Negative mg/dL (0.0-1.0); WBC,Urine 50 /hpf (0-5)
[2024-04-10 12:41] LABS: Clarity,Urine Hazy (Clear/Hazy)
--- NOTE | 2024-04-10 12:43 | ESPR_ITS ---
Documentation for date of: 04/10/24 Subjective Subjective Interval history: Patient evaluated Enteral feeding in progress No drainage from the PEG site Exam Vital Signs Temp Pulse Resp BP Pulse Ox O2 Del Method O2 Flow Rate 96.7 F L 80 7 L 98/62 93 L Nasal Cannula 1 04/10/24 08:00 04/10/24 12:15 04/10/24 12:15 04/10/24 12:15 04/10/24 12:15 04/10/24 12:00 04/10/24 12:00 FiO2 2 04/10/24 09:00 Objective Labs 04/10/24 05:25 04/10/24 05:25 Labs: Laboratory Results - last 24 hr 04/10/24 04/10/24 04/10/24 01:00 05:25 08:08 WBC 17.1 H 18.4 H RBC 2.76 L 2.56 L Hgb 8.5 L 7.9 L Hct 24.7 L 22.7 L MCV 90 89 MCH 30.8 30.9 MCHC 34.4 34.8 RDW Std Deviation 47.4 H 47.6 H Plt Count 123 L 132 L Neut % (Auto) 92 H 93 H Lymph % (Auto) 7 L 5 L [place] % (Auto) 1 1 Eos % (Auto) 0 0 Baso % (Auto) 0 0 Neut # (Auto) 15.7 H 17.1 H Lymph # (Auto) 1.1 0.9 L [place] # (Auto) 0.2 0.2 Eos # (Auto) 0.0 0.0 Baso # (Auto) 0.0 0.0 Immature Gran # (Auto) 0.09 H 0.13 H Absolute Nucleated RBC 0.00 0.00 Immature Gran % 1 H 1 H Nucleated RBC % 0 0 Sodium 135 L 136 Potassium 3.9 3.7 Chloride 104 104 Carbon Dioxide 25.8 26.5 Anion Gap 5 L 6 L BUN 15 15 Creatinine 0.5 L 0.4 L Estim Creat Clear Calc 56.5 L 70.6 eGFR > 60 > 60 BUN/Creatinine Ratio 30 H 38 H Glucose 118 H 138 H Calculated Osmolality 271 L 274 L Lactic Acid 1.7 0.9 Calcium 7.9 L 7.8 L Corrected Calcium 9.1 9.2 Phosphorus 2.4 2.6 Magnesium 1.6 1.5 L Total Bilirubin 0.3 0.3 AST 31 23 ALT 17 18 Alkaline Phosphatase 185 H D 179 H Total Protein 4.8 L 4.8 L Albumin 2.5 L 2.3 L Globulin 2.3 2.5 Albumin/Globulin Ratio 1.1 L 0.9 L Procalcitonin 1.98 H Ur Collection Type Urine Color Urine Clarity Urine pH Ur Specific [place] Urine Protein Urine Glucose (UA) Urine Ketones Urine Blood Urine Nitrite Urine Bilirubin Urine Urobilinogen (Auto) Ur Leukocyte Esterase Urine RBC Urine WBC Ur Squamous Epith Cells Urine Bacteria Ur Yeast w Hyphae Urine Yeast (Budding) 04/10/24 11:18 WBC RBC Hgb Hct MCV MCH MCHC RDW Std Deviation Plt Count Neut % (Auto) Lymph % (Auto) [place] % (Auto) Eos % (Auto) Baso % (Auto) Neut # (Auto) Lymph # (Auto) [place] # (Auto) Eos # (Auto) Baso # (Auto) Immature Gran # (Auto) Absolute Nucleated RBC Immature Gran % Nucleated RBC % Sodium Potassium Chloride Carbon Dioxide Anion Gap BUN Creatinine Estim Creat Clear Calc eGFR BUN/Creatinine Ratio Glucose Calculated Osmolality Lactic Acid Calcium Corrected Calcium Phosphorus Magnesium Total Bilirubin AST ALT Alkaline Phosphatase Total Protein Albumin Globulin Albumin/Globulin Ratio Procalcitonin Ur Collection Type Catheter Urine Color Yellow Urine Clarity Hazy Urine pH 6.0 Ur Specific [place] 1.023 Urine Protein Trace Urine Glucose (UA) Negative Urine Ketones Negative Urine Blood 1+ A Urine Nitrite Negative Urine Bilirubin Negative Urine Urobilinogen (Auto) Negative Ur Leukocyte Esterase Positive Urine RBC 4 H Urine WBC 50 H Ur Squamous Epith Cells 0 Urine Bacteria None Ur Yeast w Hyphae Present A Urine Yeast (Budding) Present A Impressions Impression: # Failure to thrive # Enteral hyperalimentation via the PEG tube ABG Interpretation ABG results: 03/30/24 04/01/24 04/01/24 13:55 10:25 17:20 ABG pH 7.48 H 7.52 H 7.47 H ABG pCO2 34 31 L 34 ABG pO2 300 H 155 H D 36 L* D ABG HCO3 25 25 25 ABG O2 Saturation 100 H 100 H 70 L ABG Base Excess 2 3 1 VBG pH VBG pCO2 VBG pO2 VBG Base Excess 04/04/24 13:52 ABG pH ABG pCO2 ABG pO2 ABG HCO3 ABG O2 Saturation ABG Base Excess VBG pH 7.43 VBG pCO2 19 L VBG pO2 136 H VBG Base Excess -10 L Assessment & Plan A&P Narrative 79-year-old female with past medical history of hypertension, hyperlipidemia, 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 1. Acute decompensated systolic heart failure (EF 45 to 50%) 2. NSTEMI 3. Essential hypertension ?Given patient's elevated troponins which peaked at 1.033 and down trended this is most likely NSTEMI type II likely demand ischemia ?Given patient is a poor candidate for heart catheterization at this time due to other comorbidities we will treat medically for now ?Patient's blood pressure has been under control during her hospital stay. ?Echo done on 03/31/2024 has had the following findings: Negative bubble study. TTE is suboptimal to rule out PFO or ASD. Consider GLORIA if high clincial suspicion. Normal LV size. Moderate to severe LV systolic dysfunction with an EF of around 35 to 40%.Severe hypokinesis of the mid to apical septum, apical anterior and apical anterolateral segments and akinetic apex indicating possible LAD involvement versus Takotsubo syndrome. Difficult to comment on apical thrombus due to lack of definity. Normal RV size and function. Mild TR Moderate MAC. Mild MR Mild AV sclerosis without stenosis with mild AI. ?Patient most likely has some underlying CAD, but given multiple comorbidities and current clinical status she is not a good candidate for heart catheterization and family is aware of this and are in agreement. -Patient is currently on norepinephrine at 3.836 mL/h as well as midodrine 5 mg 3 times daily ? Patient's differential diagnosis includes Takotsubo versus LAD involvement given her, but given her multiple comorbidities, bedbound status, and severe contractions she is not a good candidate for heart catheterization given that she could not lay flat on the [employer] table. Should be attributed medically for now. -Echo on 04/05/2024 had the following findings: Normal left ventricular size, wall thickness. Low normal systolic function. Estimated 45-50%. RV is normal in size and systolic function. The estimated RVSP, 34 mmHg. RAP 5. Moderate MAC. Mild to moderate MR. Mild sclerosis without stenosis. Mild AI. -Findings showed significant improvement, but was on pressors and could indicate possible Takotsubo syndrome which could be possibly secondary to the sepsis Plan: ?Recommend to hold off on goal-directed medical therapy with beta-devon, Entresto as well as spironolactone as patient is still hypotensive and requiring increase of vasopressor. -Continue pressor support for now. - Patient clinical condition slowly improving and Levophed requirements are decreasing - Vasopressin and dobutamine was discontinued over the last couple of days. -can start patient in oral diuresis if BP allows and patient becomes fluid overloaded. ?Patient should also be on aspirin and statin ?No need to trend troponins 4. Acute encephalopathy 5. Hypoglycemia 6. DM2 ?Patient has been taking glyburide 5 mg as well as metformin 625 mg 3 times daily which could have precipitated his patient hypoglycemia in the event that she has been having poor oral intake. ? Continue current management as per primary care team 7. Failure to thrive ?Patient may benefit from PEG tube placement as she has been having poor oral intake for the past few weeks. ? Recommend to follow GI recommendations ? Continue current management as per primary care team 8. CVA with residual right-sided deficits 9. Hyperlipidemia ? Continue current management as primary care team Management of rest of the medical conditions as per primary team and other consultants. Thank you for the consult and allowing me to participate in the care of the patient. Cardiology will continue to follow. Rao Dodson M.D. Interventional Cardiology Time Spent With Patient Time: Total time spent is greater than 50% in coordination of care (as documented) at patient's floor/unit and/or counseling patient:
[2024-04-10] MEDS: Norepinephrine/D5W 8mg/250ml 8 MG/250 ML BAG 11.869 MG IV (13:30)
[2024-04-10] MEDS: FUROSEMIDE INJ 10 MG/ML 4ML VIAL 40 MG IVP (15:02)
--- NOTE | 2024-04-10 16:28 | PD.RESPRO ---
Documentation for date of: 04/10/24 Subjective Subjective Interval history: 04/07:no acute overnight events. Pt is alert, awake and follow commands. Pt is saturating on 2L O2 via oxymask. Pt. still requires pressor support due to MAP below 65. repeat CXR show worsening pneumonia, will continue antibiotics for total 14 days and repeat prelim blood cultures are negative. Pt. continues to have mild productive cough , will add chest physiotherapy for 20 mins BID. 04/08: No acute overnight events. Patient is off the pressors since this morning, she is saturating on 2 L of oxygen via OxyMask. since pt. is off the pressor support therefore she is clinically stable to go ahead for PEG tube placement today. 04/09: pt. is s/p PEG tube placement, and became hypotensive therefore levophed drip was restarted to maintain MAP above 65. Pt is started on trickle feeds. she is saturating on 3L O2 via nasal cannula. Pts is found to have leukocytosis likely reactive in the setting of procedure. Pt remains afebrile, marbella continue to monitor closely and if she develops a fever with increasing WBC, then will consider BC at that time. Pts repeat TSH is 20.58 and free T4 0.67 therefore will increase levothyroxine to 125mcg. 04/10:: The patient was examined at the bedside this morning. She was still on Levophed and vasopressin drip for pressor support. Stable saturating 95 to 96% on 2 L NC. Overnight patient had fever and tachycardia, chest exam was CTAB. Labs were significant for increasing WBC to 18.4, magnesium 1.5 and Pro-Ozzie 1.98. Blood and urine cultures were sent. IV antibiotics were started with vancomycin and Zosyn. Bedside ultrasound was significant for volume overload at inferior vena cava. The patient was given one-time dose of IV Lasix 40 Mg, with mild production of urine. Exam Vital Signs Temp Pulse Resp BP Pulse Ox O2 Del Method O2 Flow Rate 96.7 F L 73 16 106/60 96 Nasal Cannula 1 04/10/24 08:00 04/10/24 15:02 04/10/24 15:00 04/10/24 15:02 04/10/24 15:00 04/10/24 15:00 04/10/24 15:00 FiO2 2 04/10/24 09:00 Narrative Exam GENERAL: Awake, elderly thin non female, Not in acute distress, is able to follow command NEURO: alert, motor deficit in the right and upper and lower extremities HEENT: Atraumatic, Normocephalic. mucous membranes moist. Eyes open, symmetrical, & clear HEART: Faint Heart Sounds LUNGS: Clear to auscultation with no wheezing or crackles. ABDOMEN: soft, non-distended, non-tender, bowel sounds heard, no guarding or rebound tenderness, PEG tube in place SKIN: 2 sacral ulcers, smaller one appears to be stage 2 and larger one appears to be stage 3 EXTREMITIES: 1+ pitting edema bilaterally on LE, non pitting edema on right hand, pedal pulses palpated, contracted lower extremities Objective Labs 04/17/24 09:24 04/17/24 09:24 Labs: Laboratory Results - last 24 hr 04/10/24 04/10/24 04/10/24 01:00 05:25 08:08 WBC 17.1 H 18.4 H RBC 2.76 L 2.56 L Hgb 8.5 L 7.9 L Hct 24.7 L 22.7 L MCV 90 89 MCH 30.8 30.9 MCHC 34.4 34.8 RDW Std Deviation 47.4 H 47.6 H Plt Count 123 L 132 L Neut % (Auto) 92 H 93 H Lymph % (Auto) 7 L 5 L [place] % (Auto) 1 1 Eos % (Auto) 0 0 Baso % (Auto) 0 0 Neut # (Auto) 15.7 H 17.1 H Lymph # (Auto) 1.1 0.9 L [place] # (Auto) 0.2 0.2 Eos # (Auto) 0.0 0.0 Baso # (Auto) 0.0 0.0 Immature Gran # (Auto) 0.09 H 0.13 H Absolute Nucleated RBC 0.00 0.00 Immature Gran % 1 H 1 H Nucleated RBC % 0 0 Sodium 135 L 136 Potassium 3.9 3.7 Chloride 104 104 Carbon Dioxide 25.8 26.5 Anion Gap 5 L 6 L BUN 15 15 Creatinine 0.5 L 0.4 L Estim Creat Clear Calc 56.5 L 70.6 eGFR > 60 > 60 BUN/Creatinine Ratio 30 H 38 H Glucose 118 H 138 H Calculated Osmolality 271 L 274 L Lactic Acid 1.7 0.9 Calcium 7.9 L 7.8 L Corrected Calcium 9.1 9.2 Phosphorus 2.4 2.6 Magnesium 1.6 1.5 L Total Bilirubin 0.3 0.3 AST 31 23 ALT 17 18 Alkaline Phosphatase 185 H D 179 H Total Protein 4.8 L 4.8 L Albumin 2.5 L 2.3 L Globulin 2.3 2.5 Albumin/Globulin Ratio 1.1 L 0.9 L Procalcitonin 1.98 H Ur Collection Type Urine Color Urine Clarity Urine pH Ur Specific [place] Urine Protein Urine Glucose (UA) Urine Ketones Urine Blood Urine Nitrite Urine Bilirubin Urine Urobilinogen (Auto) Ur Leukocyte Esterase Urine RBC Urine WBC Ur Squamous Epith Cells Urine Bacteria Ur Yeast w Hyphae Urine Yeast (Budding) 04/10/24 11:18 WBC RBC Hgb Hct MCV MCH MCHC RDW Std Deviation Plt Count Neut % (Auto) Lymph % (Auto) [place] % (Auto) Eos % (Auto) Baso % (Auto) Neut # (Auto) Lymph # (Auto) [place] # (Auto) Eos # (Auto) Baso # (Auto) Immature Gran # (Auto) Absolute Nucleated RBC Immature Gran % Nucleated RBC % Sodium Potassium Chloride Carbon Dioxide Anion Gap BUN Creatinine Estim Creat Clear Calc eGFR BUN/Creatinine Ratio Glucose Calculated Osmolality Lactic Acid Calcium Corrected Calcium Phosphorus Magnesium Total Bilirubin AST ALT Alkaline Phosphatase Total Protein Albumin Globulin Albumin/Globulin Ratio Procalcitonin Ur Collection Type Catheter Urine Color Yellow Urine Clarity Hazy Urine pH 6.0 Ur Specific [place] 1.023 Urine Protein Trace Urine Glucose (UA) Negative Urine Ketones Negative Urine Blood 1+ A Urine Nitrite Negative Urine Bilirubin Negative Urine Urobilinogen (Auto) Negative Ur Leukocyte Esterase Positive Urine RBC 4 H Urine WBC 50 H Ur Squamous Epith Cells 0 Urine Bacteria None Ur Yeast w Hyphae Present A Urine Yeast (Budding) Present A ABG Interpretation ABG results: 03/30/24 04/01/24 04/01/24 13:55 10:25 17:20 ABG pH 7.48 H 7.52 H 7.47 H ABG pCO2 34 31 L 34 ABG pO2 300 H 155 H D 36 L* D ABG HCO3 25 25 25 ABG O2 Saturation 100 H 100 H 70 L ABG Base Excess 2 3 1 VBG pH VBG pCO2 VBG pO2 VBG Base Excess 04/04/24 13:52 ABG pH ABG pCO2 ABG pO2 ABG HCO3 ABG O2 Saturation ABG Base Excess VBG pH 7.43 VBG pCO2 19 L VBG pO2 136 H VBG Base Excess -10 L Quality Measures Quality Measures sepsis Current suspected stage: sepsis Possible source: unknown Blood cultures ordered: completed in ED Antibiotic ordered: Yes Advance care planning discussed with:: child Assessment & Plan Assessment Current Active Medications: Generic Name Dose Route Start Last Admin Trade Name Freq PRN Reason Stop Dose Admin Acetaminophen 650 mg 03/30/24 16:17 Acetaminophen 325 Mg Tablet PO 04/29/24 16:16 Q6H PRN Fever >101.5 Acetaminophen 650 mg 03/30/24 16:17 04/10/24 15:07 Acetaminophen 325 Mg Tablet PO 04/29/24 16:16 650 mg Q6H PRN Administration PAIN SCALE 1-3 (mild Aspirin 81 mg 04/06/24 07:35 04/10/24 08:05 Aspirin 81 Mg Chew NG 05/01/24 18:44 81 mg QDAY ROGER Administration Atorvastatin Calcium 80 mg 04/06/24 07:35 04/09/24 21:07 Atorvastatin Calcium 20 Mg Tablet NG 05/01/24 20:59 80 mg HS ROGER Administration Bisacodyl 10 mg 03/30/24 19:00 04/10/24 08:00 Bisacodyl 10 Mg Supp [place] 04/29/24 18:59 Not Given QDAY ROGER Protocol Calcium Carbonate 600 mg 04/03/24 09:45 04/10/24 08:05 Calcium Carbonate 600 Mg Tablet NG 05/03/24 09:44 600 mg QDAY ROGER Administration Dextrose 25 ml 03/30/24 16:22 04/01/24 04:58 Dextrose 50%-Water Inj 50 Ml Syringe IV 04/29/24 16:21 25 ml Q15MIN PRN Administration BG 50-70 responsive npo pt Dextrose 50 ml 03/30/24 16:22 Dextrose 50%-Water Inj 50 Ml Syringe IV 04/29/24 16:21 Q15MIN PRN BG <50 OR BG <70 & pt unresponsive Enoxaparin Sodium 40 mg 04/04/24 09:00 04/10/24 08:06 Enoxaparin Sod Inj 40 Mg/0.4 Ml Syringe SC 04/18/24 08:59 40 mg QDAY ROGER Administration Folic Acid 1 mg 03/30/24 16:45 04/10/24 08:05 Folic Acid Inj 1 Mg/0.2 Ml IVP 04/29/24 16:44 1 mg QDAY ROGER Administration Glucagon 1 mg 03/30/24 16:22 Glucagon Inj 1 Mg Vial IM Q15MIN PRN BG <70, and no IV access Norepinephrine/Dextrose 8 mg in 250 mls @ 3.956 mls/hr 04/07/24 14:32 04/10/24 16:00 Levophed In D5w 8mg/250ml IV 05/02/24 20:06 0.15 mcg/kg/min .Q24H PRN 11.869 mls/hr PER protocol Titration Protocol 0.05 MCG/KG/MIN Piperacillin/Tazobactam/Dextrose 3.375 gm in 50 mls @ 12.5 mls/hr 04/10/24 06:00 04/10/24 13:29 Zosyn IV 04/17/24 05:59 12.5 mls/hr Q8HR ROGER Administration Vasopressin/Sodium Chloride 20 unit in 100 mls @ 9 mls/hr 04/10/24 01:13 04/10/24 11:40 Vasostrict/Ns Ivpb IV 05/10/24 01:12 0.03 unit/min .Q11H7M PRN 9 mls/hr PER PROTOCOL Administration Protocol 0.03 UNIT/MIN Vancomycin/Sodium Chloride 200 mls @ 120 mls/hr 04/10/24 10:00 04/10/24 09:31 Vancomycin/Ns 1 Gm Ivpb IV 04/17/24 09:59 120 mls/hr BID@1000,2200 ROGER Administration Protocol Insulin Human Lispro 0 unit 03/30/24 17:00 04/10/24 11:36 Insulin Lispro (Admelog) 1 Unit/0.01 Ml Unit SC 04/29/24 16:59 1 unit Q6HR ROGER Administration Protocol Levothyroxine Sodium 125 mcg 04/10/24 06:00 04/10/24 05:50 Levothyroxine Sodium 125 Mcg Tablet NG 05/10/24 05:59 125 mcg ACBR ROGER Administration Magnesium Oxide 400 mg 04/10/24 09:00 04/10/24 08:48 Magnesium Oxide 400 Mg Tablet GT 05/11/24 15:00 400 mg BID ROGER Administration Midodrine 10 mg 04/03/24 14:00 04/10/24 13:29 Midodrine 5 Mg Tablet NG 05/03/24 13:59 10 mg TID ROGER Administration Multivitamins/Minerals 15 ml 04/05/24 16:45 04/10/24 08:05 Multivitamin 15 Ml Udc GT 05/05/24 16:44 15 ml QDAY ROGER Administration Ondansetron HCl 4 mg 03/30/24 16:17 Ondansetron Inj 2 Mg/Ml Inj 2 Ml IV 04/29/24 16:16 Q6H PRN NAUSEA OR VOMITING Protocol Pantoprazole Sodium 40 mg 03/30/24 16:30 04/10/24 08:05 Pantoprazole Inj 40 Mg Vial IVP 04/29/24 16:29 40 mg QDAY ROGER Administration Pharmacy Consult 1 each 04/10/24 09:00 Vancomycin Pharmacy To Dose 1 Each Each IV 05/10/24 08:59 QDAY PRN PROTOCOL Polyethylene Glycol 17 gm 04/10/24 09:00 04/10/24 08:06 Polyethylene Glycol 17 Gm Packet PO 05/10/24 08:59 Not Given QDAY ROGER Sennosides 8.8 mg 04/06/24 17:33 04/07/24 08:03 Sennosides Syrup 8.8 Mg/5 Ml Udc NG 05/06/24 17:32 8.8 mg QDAY PRN Administration CONSTIPATION Protocol Thiamine HCl 100 mg 03/30/24 16:45 04/10/24 08:05 Thiamine Inj 100 Mg/Ml Vial 2 Ml IVP 04/29/24 16:44 100 mg QDAY ROGER Administration Plan Ms. 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 Per chart review and patient's daughter at bedside states patient have been declining physical activity for the past 2 months. She used to be able to walk herself to the restroom, feed herself, and walk around using walker and be able to communicate. But she has become increasingly depressed and bedbound for the last 1 week she has been having urinary incontinence and decreased oral intake. Patient was found unresponsive for which the family called ambulance. In the ED her blood glucose was found to be 13 she received D10 and her blood glucose improved and as well as her mentation. Patient was admitted to the hospital for possible PEG tube placement and treatment of bilateral pneumonia. On 04/02/2024 patient had a rapid response called for blood pressure of 75/44 maintaining MAP below 65 patient was given 1L bolus of normal saline without improvement of blood pressure and MAP; patient was upgraded to the ICU and Levophed was started. 04/10:24: The patient was examined at the bedside this morning. She was still on Levophed and vasopressin drip for pressor support. Stable saturating 95 to 96% on 2 L NC. Overnight patient had fever and tachycardia, chest exam was CTAB. Labs were significant for increasing WBC to 18.4, magnesium 1.5 and Pro-Ozzie 1.98. Blood and urine cultures were sent. IV antibiotics were started with vancomycin and Zosyn. Bedside ultrasound was significant for volume overload at inferior vena cava. The patient was given one-time dose of IV Lasix 40 Mg, with mild production of urine. Neuro #History of CVA - Pt has a stroke in 2021 with residual deficit on the right side and global aphasia #Acute metabolic encephalopathy secondary to hypoglycemia -resolved -On admission patient's was altered with blood glucose was 13 and patient received D10 and her mentation improved to baseline -Patient's daughter have reported that for the past 2 months patient has become increasingly less physically active Cardio #Shock- Likely septic, could be 2/2 aspiration PNA, less likely infected pressure ulcer -Patient was being treated with levofed from 04/03-04/08 -started levophed started on 04/03- -midodrine 10mg TID -Dobutamine drip started on 04/04 and D/c'd on 04/05 -vasopressin started on 04/04 and titrating it down as able -repeat echo04/05- EF 45-50% and mild to moderate MR -Repeat blood and urine culture ordered -CXR on 04/10 official read stating ARDS pattern, but seems more volume overload #Newly diagnosed CHF - improving DDx- takatsubo cardiomyopathy -Pt. may have developed takotsubo cardiomyopathy. Per Pt.'s daughter Tamia her (their father) sent her from [place] recently because he was unable to take care of her. And he does not communicate with her which has caused the Pt. to become increasingly withdrawn and poor oral intake. Patient also lost her grandson that she raised approximately a year ago. -EF 35-40 on echo 03/31 --> repeat echo 04/05 EF 45-50% and mild to moderate MR -In light of shock, will hold guideline directed medical therapy and will resume when able -Lasix 40mg IV x1 with mild improvement in urine output -Strict ins/outs #Hx HTN - home meds on hold #Hx. HLD - resumed home atorvastatin #Troponinemia- downtrented -on admission ? peaked at 1.033, without ST or T wave changes on EKG Pulm: #Aspiration Pneumonia in the setting of dysphagia -Repeat chest x-ray today showed worsening diffuse significant bilateral pneumonia, ARDS -on admission Pts. WBC was 15.2 --18.4 -patient is on sufficient coverage with antibiotics -D/c Azithro 04/02-04/07 -Patient is on Rocephin 04/02- 04/08 -Started on Vanc and Zosyn- 04/10- GI #Severe Malnutrition -Failure to thrive- patient's BMI is <22 and age >70 -Per patient's daughter, patient has poor oral intake and for 2 months was hiding food under the couch and bed and they often have to feed her with a syringe -likely secondary to poor oral intake -Per Fiber Drier Operator recommendations- Glucerna 1.2 at 20 ml/hr, Thiamine 100mg/day for 7 days, Multivitamins ordered #S/P PEG tube - resume trickle feeds at 20cc with no water flush #Hypoalbuminemia -Albumin is 2.4- secondary to nutritional deficiency -Will continue to treat underlying cause by giving adequate nutrition -Colloid fluid bolus given on 04/03, 04/07 Renal: #Oligouria -Likely prerenal KATHRYN in the setting of Shock -trial of lasix 40mg IV x 1 with minimal urine output Heme: #Leucocytosis 2/2 aspiration Pneumonia -Treat underlying etiology #Normocytic anemia - stable Secondary to poor nutrition 2/2 dysphagia -Hemoglobin trended down to 7.9 -no signs of active bleeding -on Ferrous sulphate 325mg daily -will continue to monitor with daily CBC -will transfuse with pRBCs if Hgb <7 Endo #History of type 2 diabetes -Hemoglobin A1c on 1211 is 6.1, blood glucose 110 -Insulin sliding scale ordered #History of hypothyroidism -TSH 17.5, free T4 0.44 during this admission -Will increase home levothyroxine from 50 mcg to 75 mcg through NG tube ID #Pneumonia #Bacteremia #leukocytosis -Blood cultures on 03/30/2024-grew Staph aureus on 1 of 2 -Blood cultures since then, urine cultures and MRSA - negative -Repeat chest x-ray 04/06/2024 showed worsening pneumonia -On antibiotics Rocephin 04/03-04/08 -repeat blood cultures sent 04/10 -On vanc and zosyn- 04/10- Skin #Sacral ulcer -Patient has 2 ulcers in the sacrum -Smaller 1 appears to be stage II and the bigger one appears to be stage III -Frequent pressure redistribution -Wound care is ordered Disposition: ICU for pressor support DVT Prophylaxis: enoxaparin 40mg Qdaily GI Prophylaxis: Pantoprozol-40 IV Qday Diet: PEG tube feedings resumed glucerna 1.2 at 20ml/hr, Code status: DNR/DNI The patient's management plan was discussed with my attending physician MD Bassem Arredondo MD, PGY2 Attending Provider Attestation/Addendum Patient seen and examined with above resident, Bassem Guevara MD. I agree with the findings, assessment, and plan of care as documented except for any differences below. Patient continues to prove difficult to wean off vasopressor support. Continues to be on regimen for septic shock. Primary pulmonary source. Patient continues to also have significant volume overload in setting of her Takotsubo cardiomyopathy. Patient maintained on IV Lasix with minimal urine production despite vasopressor support. Given ongoing suggestion of sepsis, patient was started on vancomycin and Zosyn. Patient also with significant malnutrition with ongoing trickle feeds as she continues to be on rather high doses of vasopressor support. Patient's daughter updated at bedside of ongoing plan of care. Total critical care time: Personally spent 45 minutes for review of physiologic parameters, directing plan of care throughout the day, and counseling patient's family at bedside. This is exclusive of time spent teaching housestaff or performing separate billable procedures. Patient continues to require critical care services for septic/cardiogenic shock, aspiration pneumonia with nonischemic cardiomyopathy and acute renal failure. Patient continues to have high risk for further morbidity and imminent mortality without aggressive measures.
[2024-04-10] MEDS: FERROUS SULF 325 MG TABLET PO (17:46)
[2024-04-10] MEDS: ATORVASTATIN CALCIUM 20 MG TABLET 80 MG NG (21:49)
[2024-04-11] VITALS (119 sets, daily range): BP systolic 79–126; BP diastolic 42–80; PULSE 48–81; RESP 0–26; TEMP 36.3–36.6; O2SAT 83–100; BMI 21.8
[2024-04-11] MEDS: VASOPRESSIN IN NS IVPB 20 UNIT/100 ML BAG 9 UNIT IV ×3 (00:40→23:36)
[2024-04-11] MEDS: Norepinephrine/D5W 8mg/250ml 8 MG/250 ML BAG 16.616 MG IV (04:51)
[2024-04-11] MEDS: INSULIN LISPRO (AdmeLOG) 1 UNIT/0.01 ML UNIT SC ×3 (06:02→17:28)
[2024-04-11] MEDS: LEVOTHYROXINE SODIUM 125 MCG TABLET NG (06:02)
[2024-04-11] MEDS: MIDODRINE 5 MG TABLET 10 MG NG ×3 (06:02→21:31)
[2024-04-11] MEDS: PIPER/TAZO 3.375 GM 3.375 GM/50 ML BAG IV ×3 (06:02→21:32)
[2024-04-11 06:29] LABS: Basophils % (Auto) 0 % (0-2.5); Eosinophils % (Auto) 0 % (0-10); Immature Granulocytes % (Auto) 1 % (0-0); Immature Granulocytes Auto 0.09 Thou/mm3 (0.00-0.00); Lymphocytes # (Auto) 0.8 Thou/mm3 (1.0-4.8); Lymphocytes % (Auto) 4 % (10-50); Mean Corpuscular HGB Conc 34.3 g/dl (31.0-37.0); Mean Corpuscular Hemoglobin 31.1 pg (25.0-35.0); Mean Corpuscular Volume 91 fL (80-100); Monocytes # (Auto) 0.2 Thou/mm3 (0.0-0.8); Monocytes % (Auto) 1 % (0-12); Neutrophils % (Auto) 94 % (37-80); Nucleated Red Blood Cell % 0 /100 WBC (0); Platelet Count 144 Thou/mm3 (140-440); RDW Standard Deviation 49.1 fL (36.4-46.3); Red Blood Count 2.22 Miln/mm3 (4.00-5.20); White Blood Count 17.1 Thou/mm3 (3.6-11.0)
[2024-04-11 06:38] LABS: Alanine Aminotransferase 16 U/L (10-49); Albumin, Serum 2.5 gm/dL (3.4-4.8); Alkaline Phosphatase 177 U/L (46-116); Anion Gap 6 (7-16); Aspartate Amino Transferase 29 U/L (0-34); BUN/Creatinine Ratio 35 Ratio (12-20); Bilirubin,Total 0.3 mg/dL (0.3-1.2); Blood Urea Nitrogen 14 mg/dL (9-23); Calcium 7.8 mg/dL (8.3-10.6); Carbon Dioxide 27.5 mMol/L (20.0-31.0); Chloride 98 mMol/L (98-107); Creatinine (Component) 0.4 mg/dL (0.6-1.3); Estimated Creatinine Clearance 76.7 mL/min (>60); Globulin 2.5 gm/dL (2.3-3.5); Glucose 142 mg/dL (74-106); Magnesium 1.5 mg/dL (1.6-2.6); Osmolality,Calculated 265 (275-295); Phosphorous 2.8 mg/dL (2.4-5.1); Potassium 3.1 mMol/L (3.4-5.1); Sodium 131 mMol/L (136-145); eGFR > 60 See Note
[2024-04-11 06:58] LABS: Hematocrit 20.1 % (36.0-46.0); Hemoglobin 6.9 g/dL (12.0-16.0)
--- NOTE | 2024-04-11 08:54 | PD.RESPRO ---
Documentation for date of: 04/11/24 Subjective Subjective Interval history: Patient was seen and examined at bedside this morning. No overnight events Telemetry showed sinus rhythm. Kidney function stable with Cr 0.4 and BUN 14, minimal output documented, but appears to be inaccurate. Patient continue on 2 vasopressers and midodrine for blood pressure support. Potassium 3.1 and magnesium 1.5 today, recommend to replete potassium magnesium to keep above 4 and 2 respectively to avoid any further arrhythmias. WBC downtrending on antibiotics Hemoglobin dropped to 6.9. Echo on 04/05/2024 had the following findings: Normal left ventricular size, wall thickness. Low normal systolic function. Estimated 45-50%. RV is normal in size and systolic function. The estimated RVSP, 34 mmHg. RAP 5. Moderate MAC. Mild to moderate MR. Mild sclerosis without stenosis. Mild AI. Findings showed significant improvement, but was on pressors and could indicate possible Takotsubo syndrome which could be possibly secondary to the sepsis Patient currently DNR/DNI Exam Vital Signs Temp Pulse Resp BP Pulse Ox O2 Del Method O2 Flow Rate 97.7 F 65 14 121/54 L 99 Nasal Cannula 1 04/11/24 00:00 04/11/24 06:30 04/11/24 06:30 04/11/24 06:30 04/11/24 06:30 04/10/24 16:01 04/11/24 06:15 FiO2 2 04/10/24 09:00 Narrative Exam General:nonverbal, cachectic, temporal wasting, fragile, thin Eyes: able to trace Ears: No visible ear discharge Nose: No visible nasal discharge. Mouth/Throat: Dry mucous membranes,poor dentattion Neck: Neck supple, non-tender, no cervical lymphadenopathy. Lungs: Clear LEONEL to auscultation and percussion, No accessory muscle use. Cardio: Normal S1/S2, regular rhythm, no murmurs, no JVD Abdomen: Soft, non-tender, no palpable masses, peristalsis present, no guarding or rebound. Peg tube in place with no drainage and wrapped by abdominal binder. Extremities: Symmetrical, contractures of LEONEL LE, no peripheral edema , non-tender, peripheral pulses presents, LEONEL UE swelling likely due to IV lines Skin: No rashes, no lesions, warm to touch. Neuro: Could not be assessed due to patient's current condition, able to move all extremities's Objective Labs 04/11/24 04:41 04/11/24 04:41 Labs: Laboratory Results - last 24 hr 04/10/24 04/11/24 11:18 04:41 WBC 17.1 H RBC 2.22 L Hgb 6.9 L* Hct 20.1 L* MCV 91 MCH 31.1 MCHC 34.3 RDW Std Deviation 49.1 H Plt Count 144 Neut % (Auto) 94 H Lymph % (Auto) 4 L [place] % (Auto) 1 Eos % (Auto) 0 Baso % (Auto) 0 Neut # (Auto) 16.0 H Lymph # (Auto) 0.8 L [place] # (Auto) 0.2 Eos # (Auto) 0.0 Baso # (Auto) 0.0 Immature Gran # (Auto) 0.09 H Absolute Nucleated RBC 0.00 Immature Gran % 1 H Nucleated RBC % 0 Sodium 131 L Potassium 3.1 L D Chloride 98 Carbon Dioxide 27.5 Anion Gap 6 L BUN 14 Creatinine 0.4 L Estim Creat Clear Calc 76.7 eGFR > 60 BUN/Creatinine Ratio 35 H Glucose 142 H Calculated Osmolality 265 L Calcium 7.8 L Corrected Calcium 9.0 Phosphorus 2.8 Magnesium 1.5 L Total Bilirubin 0.3 AST 29 ALT 16 Alkaline Phosphatase 177 H Total Protein 5.0 L Albumin 2.5 L Globulin 2.5 Albumin/Globulin Ratio 1.0 L Ur Collection Type Catheter Urine Color Yellow Urine Clarity Hazy Urine pH 6.0 Ur Specific [place] 1.023 Urine Protein Trace Urine Glucose (UA) Negative Urine Ketones Negative Urine Blood 1+ A Urine Nitrite Negative Urine Bilirubin Negative Urine Urobilinogen (Auto) Negative Ur Leukocyte Esterase Positive Urine RBC 4 H Urine WBC 50 H Ur Squamous Epith Cells 0 Urine Bacteria None Ur Yeast w Hyphae Present A Urine Yeast (Budding) Present A ABG Interpretation ABG results: 03/30/24 04/01/24 04/01/24 13:55 10:25 17:20 ABG pH 7.48 H 7.52 H 7.47 H ABG pCO2 34 31 L 34 ABG pO2 300 H 155 H D 36 L* D ABG HCO3 25 25 25 ABG O2 Saturation 100 H 100 H 70 L ABG Base Excess 2 3 1 VBG pH VBG pCO2 VBG pO2 VBG Base Excess 04/04/24 13:52 ABG pH ABG pCO2 ABG pO2 ABG HCO3 ABG O2 Saturation ABG Base Excess VBG pH 7.43 VBG pCO2 19 L VBG pO2 136 H VBG Base Excess -10 L Quality Measures Quality Measures sepsis Current suspected stage: sepsis Possible source: unknown Blood cultures ordered: completed in ED Antibiotic ordered: Yes Advance care planning discussed with:: patient Assessment & Plan Assessment Current Active Medications: Generic Name Dose Route Start Last Admin Trade Name Freq PRN Reason Stop Dose Admin Acetaminophen 650 mg 03/30/24 16:17 Acetaminophen 325 Mg Tablet PO 04/29/24 16:16 Q6H PRN Fever >101.5 Acetaminophen 650 mg 03/30/24 16:17 04/10/24 15:07 Acetaminophen 325 Mg Tablet PO 04/29/24 16:16 650 mg Q6H PRN Administration PAIN SCALE 1-3 (mild Aspirin 81 mg 04/06/24 07:35 04/10/24 08:05 Aspirin 81 Mg Chew NG 05/01/24 18:44 81 mg QDAY ROGER Administration Atorvastatin Calcium 80 mg 04/06/24 07:35 04/10/24 21:49 Atorvastatin Calcium 20 Mg Tablet NG 05/01/24 20:59 80 mg HS ROGER Administration Bisacodyl 10 mg 03/30/24 19:00 04/10/24 08:00 Bisacodyl 10 Mg Supp [place] 04/29/24 18:59 Not Given QDAY ROGER Protocol Calcium Carbonate 600 mg 04/03/24 09:45 04/10/24 08:05 Calcium Carbonate 600 Mg Tablet NG 05/03/24 09:44 600 mg QDAY ROGER Administration Dextrose 25 ml 03/30/24 16:22 04/01/24 04:58 Dextrose 50%-Water Inj 50 Ml Syringe IV 04/29/24 16:21 25 ml Q15MIN PRN Administration BG 50-70 responsive npo pt Dextrose 50 ml 03/30/24 16:22 Dextrose 50%-Water Inj 50 Ml Syringe IV 04/29/24 16:21 Q15MIN PRN BG <50 OR BG <70 & pt unresponsive Enoxaparin Sodium 40 mg 04/04/24 09:00 04/10/24 08:06 Enoxaparin Sod Inj 40 Mg/0.4 Ml Syringe SC 04/18/24 08:59 40 mg QDAY ROGER Administration Ferrous Sulfate 325 mg 04/10/24 17:15 04/10/24 17:46 Ferrous Sulf 325 Mg Tablet PO 05/10/24 17:14 325 mg QDAY ROGER Administration Folic Acid 1 mg 03/30/24 16:45 04/10/24 08:05 Folic Acid Inj 1 Mg/0.2 Ml IVP 04/29/24 16:44 1 mg QDAY ROGER Administration Glucagon 1 mg 03/30/24 16:22 Glucagon Inj 1 Mg Vial IM Q15MIN PRN BG <70, and no IV access Norepinephrine/Dextrose 8 mg in 250 mls @ 3.956 mls/hr 04/07/24 14:32 04/11/24 08:19 Levophed In D5w 8mg/250ml IV 05/02/24 20:06 0.23 mcg/kg/min .Q24H PRN 18.199 mls/hr PER protocol Titration Protocol 0.05 MCG/KG/MIN Piperacillin/Tazobactam/Dextrose 3.375 gm in 50 mls @ 12.5 mls/hr 04/10/24 06:00 04/11/24 06:02 Zosyn IV 04/17/24 05:59 12.5 mls/hr Q8HR ROGER Administration Vasopressin/Sodium Chloride 20 unit in 100 mls @ 9 mls/hr 04/10/24 01:13 04/11/24 00:40 Vasostrict/Ns Ivpb IV 05/10/24 01:12 0.03 unit/min .Q11H7M PRN 9 mls/hr PER PROTOCOL Administration Protocol 0.03 UNIT/MIN Vancomycin/Sodium Chloride 200 mls @ 120 mls/hr 04/10/24 10:00 04/10/24 21:52 Vancomycin/Ns 1 Gm Ivpb IV 04/17/24 09:59 200 mls/hr BID@1000,2200 ROGER Administration Protocol Insulin Human Lispro 0 unit 03/30/24 17:00 04/11/24 06:02 Insulin Lispro (Admelog) 1 Unit/0.01 Ml Unit SC 04/29/24 16:59 1 unit Q6HR ROGER Administration Protocol Levothyroxine Sodium 125 mcg 04/10/24 06:00 04/11/24 06:02 Levothyroxine Sodium 125 Mcg Tablet NG 05/10/24 05:59 125 mcg ACBR ROGER Administration Magnesium Oxide 400 mg 04/10/24 09:00 04/10/24 21:49 Magnesium Oxide 400 Mg Tablet GT 05/11/24 15:00 400 mg BID ROGER Administration Midodrine 10 mg 04/03/24 14:00 04/11/24 06:02 Midodrine 5 Mg Tablet NG 05/03/24 13:59 10 mg TID ROGER Administration Multivitamins/Minerals 15 ml 04/05/24 16:45 04/10/24 08:05 Multivitamin 15 Ml Udc GT 05/05/24 16:44 15 ml QDAY ROGER Administration Ondansetron HCl 4 mg 03/30/24 16:17 Ondansetron Inj 2 Mg/Ml Inj 2 Ml IV 04/29/24 16:16 Q6H PRN NAUSEA OR VOMITING Protocol Pantoprazole Sodium 40 mg 03/30/24 16:30 04/10/24 08:05 Pantoprazole Inj 40 Mg Vial IVP 04/29/24 16:29 40 mg QDAY ROGER Administration Pharmacy Consult 1 each 04/10/24 09:00 Vancomycin Pharmacy To Dose 1 Each Each IV 05/10/24 08:59 QDAY PRN PROTOCOL Polyethylene Glycol 17 gm 04/10/24 09:00 04/10/24 08:06 Polyethylene Glycol 17 Gm Packet PO 05/10/24 08:59 Not Given QDAY ROGER Sennosides 8.8 mg 04/06/24 17:33 04/07/24 08:03 Sennosides Syrup 8.8 Mg/5 Ml Udc NG 05/06/24 17:32 8.8 mg QDAY PRN Administration CONSTIPATION Protocol Thiamine HCl 100 mg 03/30/24 16:45 04/10/24 08:05 Thiamine Inj 100 Mg/Ml Vial 2 Ml IVP 04/29/24 16:44 100 mg QDAY ROGER Administration Plan 79-year-old female with past medical history of hypertension, hyperlipidemia, 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 1. Acute decompensated systolic heart failure (EF 45 to 50%) 2. NSTEMI 3. Essential hypertension ?Given patient's elevated troponins which peaked at 1.033 and down trended this is most likely NSTEMI type II likely demand ischemia ?Given patient is a poor candidate for heart catheterization at this time due to other comorbidities we will treat medically for now ?Patient's blood pressure has been under control during her hospital stay. ?Echo done on 03/31/2024 has had the following findings: Negative bubble study. TTE is suboptimal to rule out PFO or ASD. Consider GLORIA if high clincial suspicion. Normal LV size. Moderate to severe LV systolic dysfunction with an EF of around 35 to 40%.Severe hypokinesis of the mid to apical septum, apical anterior and apical anterolateral segments and akinetic apex indicating possible LAD involvement versus Takotsubo syndrome. Difficult to comment on apical thrombus due to lack of definity. Normal RV size and function. Mild TR Moderate MAC. Mild MR Mild AV sclerosis without stenosis with mild AI. ?Patient most likely has some underlying CAD, but given multiple comorbidities and current clinical status she is not a good candidate for heart catheterization and family is aware of this and are in agreement. -Patient is currently on norepinephrine as well as midodrine 5 mg 3 times daily ? Patient's differential diagnosis includes Takotsubo versus LAD involvement given her, but given her multiple comorbidities, bedbound status, and severe contractions she is not a good candidate for heart catheterization given that she could not lay flat on the Bid Manager table. Should be attributed medically for now. -Echo on 04/05/2024 had the following findings: Normal left ventricular size, wall thickness. Low normal systolic function. Estimated 45-50%. RV is normal in size and systolic function. The estimated RVSP, 34 mmHg. RAP 5. Moderate MAC. Mild to moderate MR. Mild sclerosis without stenosis. Mild AI. -Findings showed significant improvement, but was on pressors and could indicate possible Takotsubo syndrome which could be possibly secondary to the sepsis Plan: ?Recommend to hold off on goal-directed medical therapy with beta-devon, Entresto as well as spironolactone as patient is still hypotensive and requiring increase of vasopressor. -Continue pressor support for now as needed. -can start patient in oral diuresis if BP allows and patient becomes fluid overloaded. ?Patient should also be on aspirin and statin ?No need to trend troponins 4. Acute encephalopathy 5. Hypoglycemia 6. DM2 ?Patient has been taking glyburide 5 mg as well as metformin 625 mg 3 times daily which could have precipitated his patient hypoglycemia in the event that she has been having poor oral intake. ? Continue current management as per primary care team 7. Failure to thrive ?Patient had PEG tube placed last night ? Recommend to follow GI recommendations ? Continue current management as per primary care team 8. CVA with residual right-sided deficits 9. Hyperlipidemia ? Continue current management as primary care team Continue rest of management as per primary team. We are grateful to be able to participate in Mrs. Rudd's care. Thank you for the consult Plan of care discussed with attending Crane Assembler, Dr. Ivory Iniguez MD PGY-1 Attending Provider Attestation/Addendum I have personally seen and examined the patient separately on the above date of service and discussed the plan of care with the resident. I reviewed the resident Dr. Richard consultation progress note and agree with the resident findings and plan in the note above and have also edited the documentation to reflect my findings and plan. Rao Dodson M.D. Interventional Cardiology
[2024-04-11] MEDS: CALCIUM CARBONATE 600 MG TABLET NG (09:01)
[2024-04-11] MEDS: ASPIRIN 81 MG CHEW NG (09:01)
[2024-04-11] MEDS: PANTOPRAZOLE INJ 40 MG VIAL IVP (09:01)
[2024-04-11] MEDS: MULTIVITAMIN 15 ML UDC GT (09:01)
[2024-04-11] MEDS: FOLIC ACID INJ 1 MG/0.2 ML IVP (09:02)
[2024-04-11] MEDS: THIAMINE INJ 100 MG/ML VIAL 2 ML IVP (09:02)
[2024-04-11] MEDS: ENOXAPARIN SOD INJ 40 MG/0.4 ML SYRINGE SC (09:02)
[2024-04-11] MEDS: MAGNESIUM OXIDE 400 MG TABLET GT ×2 (09:02→21:31)
[2024-04-11 09:25] LABS: Vancomycin,Trough 22.5 mcg/mL (5.0-10.0)
[2024-04-11] MEDS: POTASSIUM CHLORIDE 10% 20 MEQ/15 ML UDC 40 MEQ GT ×2 (10:31→19:32)
[2024-04-11] MEDS: Magnesium Sulfate 4 GM Ivpb 4 GM/50 ML BAG IV (11:37)
[2024-04-11] MEDS: ACETAMINOPHEN 325 MG TABLET 650 MG PO (11:43)
[2024-04-11 11:57] LABS: Base Excess, Venous 5 (-3-3); O2 Saturation, Venous 68 % (96-97); PCO2, Venous 41 mmHg (36-56); PO2, Venous 35 mmHg (15-58); pH, Venous 7.46 (7.33-7.66)
[2024-04-11] MEDS: FUROSEMIDE INJ 10 MG/ML VIAL 2 ML 20 MG IVP ×2 (14:19→21:31)
--- NOTE | 2024-04-11 15:02 | PD.RESPRO ---
Documentation for date of: 04/11/24 Subjective Subjective Interval history: 04/07:no acute overnight events. Pt is alert, awake and follow commands. Pt is saturating on 2L O2 via oxymask. Pt. still requires pressor support due to MAP below 65. repeat CXR show worsening pneumonia, will continue antibiotics for total 14 days and repeat prelim blood cultures are negative. Pt. continues to have mild productive cough , will add chest physiotherapy for 20 mins BID. 04/08: No acute overnight events. Patient is off the pressors since this morning, she is saturating on 2 L of oxygen via OxyMask. since pt. is off the pressor support therefore she is clinically stable to go ahead for PEG tube placement today. 04/09: pt. is s/p PEG tube placement, and became hypotensive therefore levophed drip was restarted to maintain MAP above 65. Pt is started on trickle feeds. she is saturating on 3L O2 via nasal cannula. Pts is found to have leukocytosis likely reactive in the setting of procedure. Pt remains afebrile, marbella continue to monitor closely and if she develops a fever with increasing WBC, then will consider BC at that time. Pts repeat TSH is 20.58 and free T4 0.67 therefore will increase levothyroxine to 125mcg. 04/10:: The patient was examined at the bedside this morning. She was still on Levophed and vasopressin drip for pressor support. Stable saturating 95 to 96% on 2 L NC. Overnight patient had fever and tachycardia, chest exam was CTAB. Labs were significant for increasing WBC to 18.4, magnesium 1.5 and Pro-Ozzie 1.98. Blood and urine cultures were sent. IV antibiotics were started with vancomycin and Zosyn. Bedside ultrasound was significant for volume overload at inferior vena cava. The patient was given one-time dose of IV Lasix 40 Mg, with mild production of urine. 04/11: No acute overnight events patient is still on Levophed and vasopressin, goal is to wean down both pressor support. Patient is started on Lasix 20 Mg 3 times daily. Due to severe hypothyroidism patient will be started on loading dose of levothyroxine tomorrow, plus steroids and digoxin at 0.125 Mg per day. Closely monitor patient's fluid net negative and replete all electrolytes as needed. Repeat BMP and specifically VBG when MAP is around 65. Exam Vital Signs Temp Pulse Resp BP Pulse Ox O2 Del Method O2 Flow Rate 97.4 F 68 17 99/51 L 95 Nasal Cannula 1 04/11/24 12:00 04/11/24 14:19 04/11/24 14:00 04/11/24 14:19 04/11/24 14:00 04/11/24 14:00 04/11/24 14:00 FiO2 100 04/11/24 07:01 Narrative Exam GENERAL: Awake, elderly thin non female, Not in acute distress, is able to follow command NEURO: alert, motor deficit in the right and upper and lower extremities HEENT: Atraumatic, Normocephalic. mucous membranes moist. Eyes open, symmetrical, & clear HEART: Faint Heart Sounds LUNGS: Coarse breath sounds and crackles bilaterally ABDOMEN: soft, non-distended, non-tender, bowel sounds heard, no guarding or rebound tenderness, PEG tube in place SKIN: 2 sacral ulcers, smaller one appears to be stage 2 and larger one appears to be stage 3 EXTREMITIES: 3+ pitting edema bilaterally on UE, non pitting edema on lower extremity, pedal pulses palpated, contracted lower extremities Objective Labs 04/17/24 09:24 04/17/24 09:24 Labs: Laboratory Results - last 24 hr 04/11/24 04/11/24 04/11/24 04:41 08:30 09:12 WBC 17.1 H RBC 2.22 L Hgb 6.9 L* Hct 20.1 L* MCV 91 MCH 31.1 MCHC 34.3 RDW Std Deviation 49.1 H Plt Count 144 Neut % (Auto) 94 H Lymph % (Auto) 4 L [place] % (Auto) 1 Eos % (Auto) 0 Baso % (Auto) 0 Neut # (Auto) 16.0 H Lymph # (Auto) 0.8 L [place] # (Auto) 0.2 Eos # (Auto) 0.0 Baso # (Auto) 0.0 Immature Gran # (Auto) 0.09 H Absolute Nucleated RBC 0.00 Immature Gran % 1 H Nucleated RBC % 0 VBG pH VBG pCO2 VBG pO2 VBG O2 Sat (Kathy) VBG Base Excess Sodium 131 L Potassium 3.1 L D Chloride 98 Carbon Dioxide 27.5 Anion Gap 6 L BUN 14 Creatinine 0.4 L Estim Creat Clear Calc 76.7 eGFR > 60 BUN/Creatinine Ratio 35 H Glucose 142 H Calculated Osmolality 265 L Calcium 7.8 L Corrected Calcium 9.0 Phosphorus 2.8 Magnesium 1.5 L Total Bilirubin 0.3 AST 29 ALT 16 Alkaline Phosphatase 177 H Total Protein 5.0 L Albumin 2.5 L Globulin 2.5 Albumin/Globulin Ratio 1.0 L Vancomycin Trough 22.5 H* Blood Type O Positive Antibody Screen NEGATIVE Crossmatch See Detail Blood Bank Wristband ID Yes 04/11/24 11:50 WBC RBC Hgb Hct MCV MCH MCHC RDW Std Deviation Plt Count Neut % (Auto) Lymph % (Auto) [place] % (Auto) Eos % (Auto) Baso % (Auto) Neut # (Auto) Lymph # (Auto) [place] # (Auto) Eos # (Auto) Baso # (Auto) Immature Gran # (Auto) Absolute Nucleated RBC Immature Gran % Nucleated RBC % VBG pH 7.46 VBG pCO2 41 VBG pO2 35 VBG O2 Sat (Kathy) 68 L VBG Base Excess 5 H Sodium Potassium Chloride Carbon Dioxide Anion Gap BUN Creatinine Estim Creat Clear Calc eGFR BUN/Creatinine Ratio Glucose Calculated Osmolality Calcium Corrected Calcium Phosphorus Magnesium Total Bilirubin AST ALT Alkaline Phosphatase Total Protein Albumin Globulin Albumin/Globulin Ratio Vancomycin Trough Blood Type Antibody Screen Crossmatch Blood Bank Wristband ID ABG Interpretation ABG results: 03/30/24 04/01/24 04/01/24 13:55 10:25 17:20 ABG pH 7.48 H 7.52 H 7.47 H ABG pCO2 34 31 L 34 ABG pO2 300 H 155 H D 36 L* D ABG HCO3 25 25 25 ABG O2 Saturation 100 H 100 H 70 L ABG Base Excess 2 3 1 VBG pH VBG pCO2 VBG pO2 VBG Base Excess 04/04/24 04/11/24 13:52 11:50 ABG pH ABG pCO2 ABG pO2 ABG HCO3 ABG O2 Saturation ABG Base Excess VBG pH 7.43 7.46 VBG pCO2 19 L 41 VBG pO2 136 H 35 VBG Base Excess -10 L 5 H Quality Measures Quality Measures sepsis Current suspected stage: ruled out Possible source: unknown Blood cultures ordered: completed in ED Antibiotic ordered: Yes Advance care planning discussed with:: child Assessment & Plan Assessment Current Active Medications: Generic Name Dose Route Start Last Admin Trade Name Freq PRN Reason Stop Dose Admin Acetaminophen 650 mg 03/30/24 16:17 Acetaminophen 325 Mg Tablet PO 04/29/24 16:16 Q6H PRN Fever >101.5 Acetaminophen 650 mg 03/30/24 16:17 04/11/24 11:43 Acetaminophen 325 Mg Tablet PO 04/29/24 16:16 650 mg Q6H PRN Administration PAIN SCALE 1-3 (mild Aspirin 81 mg 04/06/24 07:35 04/11/24 09:01 Aspirin 81 Mg Chew NG 05/01/24 18:44 81 mg QDAY ROGER Administration Atorvastatin Calcium 80 mg 04/06/24 07:35 04/10/24 21:49 Atorvastatin Calcium 20 Mg Tablet NG 05/01/24 20:59 80 mg HS ROGER Administration Bisacodyl 10 mg 03/30/24 19:00 04/11/24 09:00 Bisacodyl 10 Mg Supp LA 04/29/24 18:59 Not Given QDAY ROGER Protocol Calcium Carbonate 600 mg 04/03/24 09:45 04/11/24 09:01 Calcium Carbonate 600 Mg Tablet NG 05/03/24 09:44 600 mg QDAY ROGER Administration Dextrose 25 ml 03/30/24 16:22 04/01/24 04:58 Dextrose 50%-Water Inj 50 Ml Syringe IV 04/29/24 16:21 25 ml Q15MIN PRN Administration BG 50-70 responsive npo pt Dextrose 50 ml 03/30/24 16:22 Dextrose 50%-Water Inj 50 Ml Syringe IV 04/29/24 16:21 Q15MIN PRN BG <50 OR BG <70 & pt unresponsive Enoxaparin Sodium 40 mg 04/04/24 09:00 04/11/24 09:02 Enoxaparin Sod Inj 40 Mg/0.4 Ml Syringe SC 04/18/24 08:59 40 mg QDAY ROGER Administration Ferrous Sulfate 325 mg 04/10/24 17:15 04/11/24 09:04 Ferrous Sulf 325 Mg Tablet PO 05/10/24 17:14 Not Given QDAY ROGER Folic Acid 1 mg 03/30/24 16:45 04/11/24 09:02 Folic Acid Inj 1 Mg/0.2 Ml IVP 04/29/24 16:44 1 mg QDAY ROGER Administration Furosemide 20 mg 04/11/24 14:00 04/11/24 14:19 Furosemide Inj 10 Mg/Ml Vial 2 Ml IVP 05/11/24 13:59 20 mg TID ROGER Administration Glucagon 1 mg 03/30/24 16:22 Glucagon Inj 1 Mg Vial IM Q15MIN PRN BG <70, and no IV access Norepinephrine/Dextrose 8 mg in 250 mls @ 3.956 mls/hr 04/07/24 14:32 04/11/24 14:00 Levophed In D5w 8mg/250ml IV 05/02/24 20:06 0.21 mcg/kg/min .Q24H PRN 16.616 mls/hr PER protocol Titration Protocol 0.05 MCG/KG/MIN Piperacillin/Tazobactam/Dextrose 3.375 gm in 50 mls @ 12.5 mls/hr 04/10/24 06:00 04/11/24 14:17 Zosyn IV 04/17/24 05:59 12.5 mls/hr Q8HR ROGER Administration Vasopressin/Sodium Chloride 20 unit in 100 mls @ 9 mls/hr 04/10/24 01:13 04/11/24 11:18 Vasostrict/Ns Ivpb IV 05/10/24 01:12 0.03 unit/min .Q11H7M PRN 9 mls/hr PER PROTOCOL Administration Protocol 0.03 UNIT/MIN Magnesium Sulfate 4 gm in 50 mls @ 12.5 mls/hr 04/11/24 11:33 04/11/24 11:37 Magnesium Sulfate Ivpb IV 04/11/24 15:32 12.5 mls/hr X1 ONE Administration Insulin Human Lispro 0 unit 03/30/24 17:00 04/11/24 11:18 Insulin Lispro (Admelog) 1 Unit/0.01 Ml Unit SC 04/29/24 16:59 1 unit Q6HR ROGER Administration Protocol Levothyroxine Sodium 125 mcg 04/10/24 06:00 04/11/24 06:02 Levothyroxine Sodium 125 Mcg Tablet NG 05/10/24 05:59 125 mcg ACBR ROGER Administration Magnesium Oxide 400 mg 04/10/24 09:00 04/11/24 09:02 Magnesium Oxide 400 Mg Tablet GT 05/11/24 15:00 400 mg BID ROGER Administration Midodrine 10 mg 04/03/24 14:00 04/11/24 14:19 Midodrine 5 Mg Tablet NG 05/03/24 13:59 10 mg TID ROGER Administration Multivitamins/Minerals 15 ml 04/05/24 16:45 04/11/24 09:01 Multivitamin 15 Ml Udc GT 05/05/24 16:44 15 ml QDAY ROGER Administration Ondansetron HCl 4 mg 03/30/24 16:17 Ondansetron Inj 2 Mg/Ml Inj 2 Ml IV 04/29/24 16:16 Q6H PRN NAUSEA OR VOMITING Protocol Pantoprazole Sodium 40 mg 03/30/24 16:30 04/11/24 09:01 Pantoprazole Inj 40 Mg Vial IVP 04/29/24 16:29 40 mg QDAY ROGER Administration Polyethylene Glycol 17 gm 04/10/24 09:00 04/11/24 09:00 Polyethylene Glycol 17 Gm Packet PO 05/10/24 08:59 Not Given QDAY ROGER Sennosides 8.8 mg 04/06/24 17:33 04/07/24 08:03 Sennosides Syrup 8.8 Mg/5 Ml Udc NG 05/06/24 17:32 8.8 mg QDAY PRN Administration CONSTIPATION Protocol Thiamine HCl 100 mg 03/30/24 16:45 04/11/24 09:02 Thiamine Inj 100 Mg/Ml Vial 2 Ml IVP 04/29/24 16:44 100 mg QDAY ROGER Administration Plan Ms. 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 Per chart review and patient's daughter at bedside states patient have been declining physical activity for the past 2 months. She used to be able to walk herself to the restroom, feed herself, and walk around using walker and be able to communicate. But she has become increasingly depressed and bedbound for the last 1 week she has been having urinary incontinence and decreased oral intake. Patient was found unresponsive for which the family called ambulance. In the ED her blood glucose was found to be 13 she received D10 and her blood glucose improved and as well as her mentation. Patient was admitted to the hospital for possible PEG tube placement and treatment of bilateral pneumonia. On 04/02/2024 patient had a rapid response called for blood pressure of 75/44 maintaining MAP below 65 patient was given 1L bolus of normal saline without improvement of blood pressure and MAP; patient was upgraded to the ICU and Levophed was started. Neuro #History of CVA - Pt has a stroke in 2021 with residual deficit on the right side and global aphasia #Acute metabolic encephalopathy secondary to hypoglycemia -resolved -On admission patient's was altered with blood glucose was 13 and patient received D10 and her mentation improved to baseline -Patient's daughter have reported that for the past 2 months patient has become increasingly less physically active Cardio #Shock- - septic shock? 05/23 to staph bacteremia has resolved 04/08 and then patient underwent PEG tube placement procedure requiring versed and became hypotensive and levophed was restarted. -on admission pts. BC on 03/30 showed staph bacteremia in 1 of the 2 cultures, Pt has been on antibiotics -started levophed started on 04/03- -midodrine 10mg TID -Dobutamine drip started on 04/04 and D/c'd on 04/05 -vasopressin started on 04/04 and titrating it down as able -repeat echo04/05- EF 45-50% and mild to moderate MR -Patient is on Levophed at 0.23 and vasopressin goal is to wean her off as tolerating maintaining MAP around 65 #Newly diagnosed CHF - improving DDx- takatsubo cardiomyopathy -Pt. may have developed takotsubo cardiomyopathy. Per Pt.'s daughter Tamia her (their father) sent her from [place] recently because he was unable to take care of her. And he does not communicate with her which has caused the Pt. to become increasingly withdrawn and poor oral intake. Patient also lost her grandson that she raised approximately a year ago. -EF 35-40 on echo 03/31 --> repeat echo 04/05 EF 45-50% and mild to moderate MR -In light of shock, will hold guideline directed medical therapy and will resume when able -Patient is started on Lasix 20 Mg 3 times daily and digoxin at 0.125 mg/day -Continue to closely monitor ins and outs and calculate net negative volume #Hx HTN - home meds on hold # Hx. HLD - resumed home atorvastatin #Troponinemia- resolved -on admission ? peaked at 1.033, without ST or T wave changes on EKG Pul # Aspiration pneumonia likely in the setting of dysphagia -Repeat chest x-ray showed worsening diffuse significant bilateral pneumonia -on admission Pts. WBC 17.1 -repeat chest x-ray showed worsening bilateral pneumonia, and patient has developed a productive cough - patient is on sufficient coverage with antibiotics -D/c Azithro 04/02-04/07 -Patient is on Rocephin 04/02- 04/08 -Patient is started on Zosyn on 04/10- (continue for 7 days course for aspiration pneumonia) -D/C due to MRSA negative ID #Pneumonia #Bacteremia #leukocytosis -Blood cultures on 03/30/2024-grew Staph aureus on 1 of 2 -Blood cultures since then, urine cultures and MRSA - negative -Repeat chest x-ray 04/06/2024 showed worsening pneumonia Pts is found to have leukocytosis likely reactive in the setting of procedure. Pt remains afebrile, will continue to monitor closely and if she develops a fever with increasing WBC, then will consider BC at that time. -On antibiotics Zosyn -repeat blood cultures from 04/05 prelim no growth GI #Severe Malnutrition -Failure to thrive- patient's BMI is <22 and age >70 -Per patient's daughter, patient has poor oral intake and for 2 months was hiding food under the couch and bed and they often have to feed her with a syringe -likely secondary to poor oral intake -Per Insole Coverer recommendations- Glucerna 1.2 at 20 ml/hr, Thiamine 100mg/day for 7 days, Multivitamins ordered # PEG tube - resume trickle feeds at 20cc with no water flush #Hypoalbuminemia -Albumin is 2.4- likely secondary to nutritional deficiency -Will continue to treat underlying cause by giving adequate nutrition -Colloid fluid bolus given on 04/03, 04/07 Endo #History of type 2 diabetes -Hemoglobin A1c on 121 is 6.1, blood glucose 110 -Insulin sliding scale ordered #History of hypothyroidism #Severe hypothyroidism -TSH 20.58, free T4 0.67 during this admission -Tomorrow patient will receive a loading dose of levothyroxine of 200 mcg IV and then will follow-up with 1.6 micro grams per KG IV daily after Renal # Hypokalemia # Hypomagnesemia # Hypovolemic hyponatremia -Likely in the setting of diuresing -Repleted 80 mEq of potassium, repleted magnesium, Heme #Acute anemia - stable -Hemoglobin 6.9 and hematocrit 20.1 -no signs of active bleeding -will continue to monitor with daily CBC -Patient received 1 unit PRBC -will transfuse again with pRBCs if Hgb <7 DVT prophylaxis-Lovenox Skin #Sacral ulcer -Patient has 2 ulcers in the sacrum -Smaller 1 appears to be stage II and the bigger one appears to be stage III -Frequent pressure redistribution -Wound care is ordered Disposition: ICU for pressor support DVT Prophylaxis: enoxaparin 40mg Qdaily GI Prophylaxis: Pantoprozol-40 IV Qday Diet: PEG tube feedings resumed glucerna 1.2 at 20ml/hr, Code status: DNR/DNI Assessment and plan discussed with my attending physician Dr. Arthur Zaman ([id number])- Internal medicine resident Attending Provider Attestation/Addendum Patient seen and examined with above resident, Ryan Mckeon MD. I agree with the findings, assessment, and plan of care as documented except for any differences below. Patient continues to be on vasopressors but difficult to wean. Suspect that she has a component of severe hypothyroidism that is playing a role in her combined cardiogenic and vasoplegic state. Will start on IV levothyroxine and stress dose steroids. Digoxin was also initiated to increase contractility. Plan to complete course of 7 days of Zosyn for pneumonia as the primary infectious source. Patient also remains on midodrine. Will continue on tube feeds, patient will remain n.p.o. as dysphagia is likely precipitant for infection. Patient remains on appropriate prophylaxis. Patient's family updated at bedside. Total critical care time: I personally spent 35 minutes for review of physiologic parameters, directing plan of care throughout the day, coordination of care with other subspecialists, and counseling patient's family at bedside. This is exclusive of time spent teaching housestaff or performing any separate billable procedures. Patient continues to require critical care services for combined septic/cardiogenic shock secondary to aspiration pneumonia and Takotsubo's cardiomyopathy likely precipitated by aspiration pneumonia. Patient remains at high risk for increasing morbidity and mortality with requirement for close monitoring only available in the intensive care unit.
--- NOTE | 2024-04-11 15:09 | ESPR_ITS ---
Documentation for date of: 04/11/24 Subjective Subjective Interval history: Tolerating enteral feeding On Levophed for hypotension Exam Vital Signs Temp Pulse Resp BP Pulse Ox O2 Del Method O2 Flow Rate 97.4 F 60 22 H 95/53 L 94 L Nasal Cannula 1 04/11/24 12:00 04/11/24 15:00 04/11/24 15:00 04/11/24 15:00 04/11/24 15:00 04/11/24 15:00 04/11/24 15:00 FiO2 100 04/11/24 07:01 Objective Labs 04/12/24 02:45 04/12/24 14:29 Labs: Laboratory Results - last 24 hr 04/11/24 04/11/24 04/11/24 04:41 08:30 09:12 WBC 17.1 H RBC 2.22 L Hgb 6.9 L* Hct 20.1 L* MCV 91 MCH 31.1 MCHC 34.3 RDW Std Deviation 49.1 H Plt Count 144 Neut % (Auto) 94 H Lymph % (Auto) 4 L [place] % (Auto) 1 Eos % (Auto) 0 Baso % (Auto) 0 Neut # (Auto) 16.0 H Lymph # (Auto) 0.8 L [place] # (Auto) 0.2 Eos # (Auto) 0.0 Baso # (Auto) 0.0 Immature Gran # (Auto) 0.09 H Absolute Nucleated RBC 0.00 Immature Gran % 1 H Nucleated RBC % 0 VBG pH VBG pCO2 VBG pO2 VBG O2 Sat (Kathy) VBG Base Excess Sodium 131 L Potassium 3.1 L D Chloride 98 Carbon Dioxide 27.5 Anion Gap 6 L BUN 14 Creatinine 0.4 L Estim Creat Clear Calc 76.7 eGFR > 60 BUN/Creatinine Ratio 35 H Glucose 142 H Calculated Osmolality 265 L Calcium 7.8 L Corrected Calcium 9.0 Phosphorus 2.8 Magnesium 1.5 L Total Bilirubin 0.3 AST 29 ALT 16 Alkaline Phosphatase 177 H Total Protein 5.0 L Albumin 2.5 L Globulin 2.5 Albumin/Globulin Ratio 1.0 L Vancomycin Trough 22.5 H* Blood Type O Positive Antibody Screen NEGATIVE Crossmatch See Detail Blood Bank Wristband ID Yes 04/11/24 11:50 WBC RBC Hgb Hct MCV MCH MCHC RDW Std Deviation Plt Count Neut % (Auto) Lymph % (Auto) [place] % (Auto) Eos % (Auto) Baso % (Auto) Neut # (Auto) Lymph # (Auto) [place] # (Auto) Eos # (Auto) Baso # (Auto) Immature Gran # (Auto) Absolute Nucleated RBC Immature Gran % Nucleated RBC % VBG pH 7.46 VBG pCO2 41 VBG pO2 35 VBG O2 Sat (Kathy) 68 L VBG Base Excess 5 H Sodium Potassium Chloride Carbon Dioxide Anion Gap BUN Creatinine Estim Creat Clear Calc eGFR BUN/Creatinine Ratio Glucose Calculated Osmolality Calcium Corrected Calcium Phosphorus Magnesium Total Bilirubin AST ALT Alkaline Phosphatase Total Protein Albumin Globulin Albumin/Globulin Ratio Vancomycin Trough Blood Type Antibody Screen Crossmatch Blood Bank Wristband ID Impressions Impression: # Failure to thrive # Enteral hyperalimentation through the PEG tube # Hypotension on pressors ABG Interpretation ABG results: 03/30/24 04/01/24 04/01/24 13:55 10:25 17:20 ABG pH 7.48 H 7.52 H 7.47 H ABG pCO2 34 31 L 34 ABG pO2 300 H 155 H D 36 L* D ABG HCO3 25 25 25 ABG O2 Saturation 100 H 100 H 70 L ABG Base Excess 2 3 1 VBG pH VBG pCO2 VBG pO2 VBG Base Excess 04/04/24 04/11/24 13:52 11:50 ABG pH ABG pCO2 ABG pO2 ABG HCO3 ABG O2 Saturation ABG Base Excess VBG pH 7.43 7.46 VBG pCO2 19 L 41 VBG pO2 136 H 35 VBG Base Excess -10 L 5 H Assessment & Plan A&P Narrative 79-year-old female with past medical history of hypertension, hyperlipidemia, 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 1. Acute decompensated systolic heart failure (EF 45 to 50%) 2. NSTEMI 3. Essential hypertension ?Given patient's elevated troponins which peaked at 1.033 and down trended this is most likely NSTEMI type II likely demand ischemia ?Given patient is a poor candidate for heart catheterization at this time due to other comorbidities we will treat medically for now ?Patient's blood pressure has been under control during her hospital stay. ?Echo done on 03/31/2024 has had the following findings: Negative bubble study. TTE is suboptimal to rule out PFO or ASD. Consider GLORIA if high clincial suspicion. Normal LV size. Moderate to severe LV systolic dysfunction with an EF of around 35 to 40%.Severe hypokinesis of the mid to apical septum, apical anterior and apical anterolateral segments and akinetic apex indicating possible LAD involvement versus Takotsubo syndrome. Difficult to comment on apical thrombus due to lack of definity. Normal RV size and function. Mild TR Moderate MAC. Mild MR Mild AV sclerosis without stenosis with mild AI. ?Patient most likely has some underlying CAD, but given multiple comorbidities and current clinical status she is not a good candidate for heart catheterization and family is aware of this and are in agreement. -Patient is currently on norepinephrine at 3.836 mL/h as well as midodrine 5 mg 3 times daily ? Patient's differential diagnosis includes Takotsubo versus LAD involvement given her, but given her multiple comorbidities, bedbound status, and severe contractions she is not a good candidate for heart catheterization given that she could not lay flat on the [employer] table. Should be attributed medically for now. -Echo on 04/05/2024 had the following findings: Normal left ventricular size, wall thickness. Low normal systolic function. Estimated 45-50%. RV is normal in size and systolic function. The estimated RVSP, 34 mmHg. RAP 5. Moderate MAC. Mild to moderate MR. Mild sclerosis without stenosis. Mild AI. -Findings showed significant improvement, but was on pressors and could indicate possible Takotsubo syndrome which could be possibly secondary to the sepsis Plan: ?Recommend to hold off on goal-directed medical therapy with beta-devon, Entresto as well as spironolactone as patient is still hypotensive and requiring increase of vasopressor. -Continue pressor support for now. - Patient clinical condition slowly improving and Levophed requirements are decreasing - Vasopressin and dobutamine was discontinued over the last couple of days. -can start patient in oral diuresis if BP allows and patient becomes fluid overloaded. ?Patient should also be on aspirin and statin ?No need to trend troponins 4. Acute encephalopathy 5. Hypoglycemia 6. DM2 ?Patient has been taking glyburide 5 mg as well as metformin 625 mg 3 times daily which could have precipitated his patient hypoglycemia in the event that she has been having poor oral intake. ? Continue current management as per primary care team 7. Failure to thrive ?Patient may benefit from PEG tube placement as she has been having poor oral intake for the past few weeks. ? Recommend to follow GI recommendations ? Continue current management as per primary care team 8. CVA with residual right-sided deficits 9. Hyperlipidemia ? Continue current management as primary care team Management of rest of the medical conditions as per primary team and other consultants. Thank you for the consult and allowing me to participate in the care of the patient. Cardiology will continue to follow. Rao Dodson M.D. Interventional Cardiology Time Spent With Patient Time: Total time spent is greater than 50% in coordination of care (as documented) at patient's floor/unit and/or counseling patient:
[2024-04-11] MEDS: DIGOXIN INJ 0.25 MG/ML AMP 2 ML 0.125 MG IVP (16:24)
[2024-04-11] MEDS: HYDROCORTISONE SOD SUCC INJ 100 MG VIAL IV (16:24)
[2024-04-11] MEDS: Norepinephrine/D5W 8mg/250ml 8 MG/250 ML BAG 7.121 MG IV (21:02)
[2024-04-11] MEDS: ATORVASTATIN CALCIUM 20 MG TABLET 80 MG NG (21:31)
[2024-04-12] VITALS (113 sets, daily range): BP systolic 79–122; BP diastolic 42–64; PULSE 50–84; RESP 7–26; TEMP 36.2–36.7; O2SAT 88–98; BMI 21.5
[2024-04-12] MEDS: HYDROCORTISONE SOD SUCC INJ 100 MG VIAL IV ×4 (00:29→23:57)
[2024-04-12] MEDS: INSULIN LISPRO (AdmeLOG) 1 UNIT/0.01 ML UNIT SC ×4 (00:37→17:35)
[2024-04-12 01:13] LABS: Hematocrit 24.8 % (36.0-46.0)
[2024-04-12 01:14] LABS: Hemoglobin 8.7 g/dL (12.0-16.0)
[2024-04-12 01:34] LABS: Alanine Aminotransferase 21 U/L (10-49); Albumin, Serum 2.5 gm/dL (3.4-4.8); Albumin/Globulin Ratio 0.9 (1.2-2.2); Alkaline Phosphatase 175 U/L (46-116); Anion Gap 7 (7-16); Aspartate Amino Transferase 40 U/L (0-34); BUN/Creatinine Ratio 26 Ratio (12-20); Bilirubin,Total 0.3 mg/dL (0.3-1.2); Blood Urea Nitrogen 13 mg/dL (9-23); Calcium (Corrected) 9.2 mg/dL (8.5-10.1); Carbon Dioxide 29.1 mMol/L (20.0-31.0); Chloride 95 mMol/L (98-107); Creatinine (Component) 0.5 mg/dL (0.6-1.3); Estimated Creatinine Clearance 61.5 mL/min (>60); Globulin 2.8 gm/dL (2.3-3.5); Glucose 136 mg/dL (74-106); Magnesium 1.9 mg/dL (1.6-2.6); Osmolality,Calculated 264 (275-295); Phosphorous 2.6 mg/dL (2.4-5.1); Potassium 3.9 mMol/L (3.4-5.1); Sodium 131 mMol/L (136-145); Total Protein 5.3 gm/dL (5.7-8.2); eGFR > 60 See Note
[2024-04-12 03:08] LABS: Base Excess, Venous 8 (-3-3); O2 Saturation, Venous 71 % (96-97); PCO2, Venous 35 mmHg (36-56); PO2, Venous 33 mmHg (15-58); pH, Venous 7.55 (7.33-7.66)
[2024-04-12 03:16] LABS: Basophils % (Auto) 0 % (0-2.5); Eosinophils % (Auto) 0 % (0-10); Hematocrit 25.1 % (36.0-46.0); Immature Granulocytes % (Auto) 1 % (0-0); Immature Granulocytes Auto 0.11 Thou/mm3 (0.00-0.00); Lymphocytes # (Auto) 0.6 Thou/mm3 (1.0-4.8); Lymphocytes % (Auto) 3 % (10-50); Mean Corpuscular HGB Conc 35.1 g/dl (31.0-37.0); Mean Corpuscular Hemoglobin 30.3 pg (25.0-35.0); Mean Corpuscular Volume 87 fL (80-100); Monocytes # (Auto) 0.1 Thou/mm3 (0.0-0.8); Monocytes % (Auto) 1 % (0-12); Neutrophils # (Auto) 19.5 Thou/mm3 (1.8-7.7); Neutrophils % (Auto) 96 % (37-80); Nucleated Red Blood Cell % 0 /100 WBC (0); Platelet Count 127 Thou/mm3 (140-440); RDW Standard Deviation 48.1 fL (36.4-46.3); White Blood Count 20.3 Thou/mm3 (3.6-11.0)
[2024-04-12 03:18] LABS: Hemoglobin 8.8 g/dL (12.0-16.0)
[2024-04-12 03:38] LABS: Alanine Aminotransferase 19 U/L (10-49); Albumin, Serum 2.5 gm/dL (3.4-4.8); Albumin/Globulin Ratio 0.9 (1.2-2.2); Alkaline Phosphatase 163 U/L (46-116); Anion Gap 7 (7-16); Aspartate Amino Transferase 32 U/L (0-34); BUN/Creatinine Ratio 33 Ratio (12-20); Bilirubin,Total 0.3 mg/dL (0.3-1.2); Blood Urea Nitrogen 13 mg/dL (9-23); Calcium 8.1 mg/dL (8.3-10.6); Calcium (Corrected) 9.3 mg/dL (8.5-10.1); Chloride 95 mMol/L (98-107); Creatinine (Component) 0.4 mg/dL (0.6-1.3); Estimated Creatinine Clearance 76.9 mL/min (>60); Globulin 2.8 gm/dL (2.3-3.5); Glucose 109 mg/dL (74-106); Magnesium 1.8 mg/dL (1.6-2.6); Osmolality,Calculated 261 (275-295); Phosphorous 2.4 mg/dL (2.4-5.1); Potassium 3.4 mMol/L (3.4-5.1); Sodium 130 mMol/L (136-145); Total Protein 5.3 gm/dL (5.7-8.2); eGFR > 60 See Note
[2024-04-12 03:53] LABS: B-Type Natriuretic Peptide 1035 pg/mL (0-100)
[2024-04-12] MEDS: MIDODRINE 5 MG TABLET 10 MG NG ×3 (06:07→21:26)
[2024-04-12] MEDS: PIPER/TAZO 3.375 GM 3.375 GM/50 ML BAG IV ×3 (06:08→21:34)
[2024-04-12] MEDS: FUROSEMIDE INJ 10 MG/ML VIAL 2 ML 20 MG IVP ×2 (06:11→17:43)
[2024-04-12 06:55] LABS: Legionella Ag, EIA, Urine* NOT DETECTED
[2024-04-12] MEDS: POTASSIUM CHLORIDE 10% 20 MEQ/15 ML UDC 40 MEQ GT ×2 (07:34→18:35)
[2024-04-12] MEDS: Magnesium Sulfate 2 GM Ivpb 2 GM/50 ML BAG IV (07:34)
[2024-04-12] MEDS: MULTIVITAMIN 15 ML UDC GT (08:51)
[2024-04-12] MEDS: CALCIUM CARBONATE 600 MG TABLET NG (08:51)
[2024-04-12] MEDS: ASPIRIN 81 MG CHEW NG (08:52)
[2024-04-12] MEDS: MAGNESIUM OXIDE 400 MG TABLET GT ×2 (08:52→21:26)
[2024-04-12] MEDS: DIGOXIN INJ 0.25 MG/ML AMP 2 ML 0.125 MG IVP (08:52)
[2024-04-12] MEDS: LEVOTHYROXINE INJ 100 mCg VIAL 200 MCG IV (08:52)
[2024-04-12] MEDS: PANTOPRAZOLE INJ 40 MG VIAL IVP (08:52)
[2024-04-12] MEDS: FOLIC ACID INJ 1 MG/0.2 ML IVP (08:52)
[2024-04-12] MEDS: THIAMINE INJ 100 MG/ML VIAL 2 ML IVP (08:52)
[2024-04-12] MEDS: ENOXAPARIN SOD INJ 40 MG/0.4 ML SYRINGE SC (08:53)
--- NOTE | 2024-04-12 09:06 | XR_ITS ---
Examination: AP chest single view Technique one AP portable semiupright chest single view Exam date and time: April 12, 2024 0934 hours Comparison April 10, 2024 INDICATIONS: Difficulty breathing this week, pneumonia ARDS pattern on earlier chest films this week FINDINGS: Normal heart size Extensive bilateral pneumonia ARDS Right internal jugular central line tip right atrium IMPRESSION: Extensive bilateral pneumonia ARDS pattern
[2024-04-12] MEDS: VASOPRESSIN IN NS IVPB 20 UNIT/100 ML BAG 9 UNIT IV ×2 (11:40→23:56)
[2024-04-12] MEDS: ALBUMIN HUMAN 25% IVPB 25 GM/100 ML BTL IV (14:27)
--- NOTE | 2024-04-12 14:52 | PD.RESPRO ---
Documentation for date of: 04/12/24 Subjective Subjective Interval history: 04/08: No acute overnight events. Patient is off the pressors since this morning, she is saturating on 2 L of oxygen via OxyMask. since pt. is off the pressor support therefore she is clinically stable to go ahead for PEG tube placement today. 04/09: pt. is s/p PEG tube placement, and became hypotensive therefore levophed drip was restarted to maintain MAP above 65. Pt is started on trickle feeds. she is saturating on 3L O2 via nasal cannula. Pts is found to have leukocytosis likely reactive in the setting of procedure. Pt remains afebrile, marbella continue to monitor closely and if she develops a fever with increasing WBC, then will consider BC at that time. Pts repeat TSH is 20.58 and free T4 0.67 therefore will increase levothyroxine to 125mcg. 04/10:24: The patient was examined at the bedside this morning. She was still on Levophed and vasopressin drip for pressor support. Stable saturating 95 to 96% on 2 L NC. Overnight patient had fever and tachycardia, chest exam was CTAB. Labs were significant for increasing WBC to 18.4, magnesium 1.5 and Pro-Ozzie 1.98. Blood and urine cultures were sent. IV antibiotics were started with vancomycin and Zosyn. Bedside ultrasound was significant for volume overload at inferior vena cava. The patient was given one-time dose of IV Lasix 40 Mg, with mild production of urine. 04/11: No acute overnight events patient is still on Levophed and vasopressin, goal is to wean down both pressor support. Patient is started on Lasix 20 Mg 3 times daily. Due to severe hypothyroidism patient will be started on loading dose of levothyroxine tomorrow, plus steroids and digoxin at 0.125 Mg per day. Closely monitor patient's fluid net negative and replete all electrolytes as needed. Repeat BMP and specifically VBG when MAP is around 65. 04/12: Overnight patient had 2.5 L of urine output and no other overnight events. Patient is still on pressor support, Levophed was off for several hours but MAP dropped below 65 and Levophed was restarted. Patient's cough is resolved and remains afebrile. Patient is saturating on room air. VBG today are stable. Will continue to closely monitor electrolytes and fluid net negative and will replete electrolytes as needed. BNP is 1035. Since patient was started on digoxin on 04/11/2024 will check digoxin levels in about 6 days after initiating therapy. Exam Vital Signs Temp Pulse Resp BP Pulse Ox O2 Del Method O2 Flow Rate 97.1 F 76 20 92/56 L 93 L Room Air 1 04/12/24 12:00 04/12/24 14:28 04/12/24 13:00 04/12/24 14:28 04/12/24 13:00 04/12/24 13:00 04/11/24 18:32 FiO2 2 04/10/24 09:00 Narrative Exam GENERAL: Awake, elderly thin non female, Not in acute distress, is able to follow command NEURO: alert, motor deficit in the right and upper and lower extremities HEENT: Atraumatic, Normocephalic. mucous membranes moist. Eyes open, symmetrical, & clear HEART: Faint Heart Sounds LUNGS: Coarse breath sounds and crackles bilaterally ABDOMEN: soft, non-distended, non-tender, bowel sounds heard, no guarding or rebound tenderness, PEG tube in place SKIN: 2 sacral ulcers, smaller one appears to be stage 2 and larger one appears to be stage 3 EXTREMITIES: 3+ pitting edema bilaterally on UE, non pitting edema on lower extremity, pedal pulses palpated, contracted lower extremities Objective Labs 04/17/24 09:24 04/17/24 09:24 Labs: Laboratory Results - last 24 hr 04/02/24 04/11/24 04/12/24 01:57 09:12 00:47 WBC RBC Hgb 8.7 L D Hct 24.8 L MCV MCH MCHC RDW Std Deviation Plt Count Neut % (Auto) Lymph % (Auto) [place] % (Auto) Eos % (Auto) Baso % (Auto) Neut # (Auto) Lymph # (Auto) [place] # (Auto) Eos # (Auto) Baso # (Auto) Immature Gran # (Auto) Absolute Nucleated RBC Immature Gran % Nucleated RBC % VBG pH VBG pCO2 VBG pO2 VBG O2 Sat (Kathy) VBG Base Excess Sodium 131 L Potassium 3.9 D Chloride 95 L Carbon Dioxide 29.1 Anion Gap 7 BUN 13 Creatinine 0.5 L Estim Creat Clear Calc 61.5 eGFR > 60 BUN/Creatinine Ratio 26 H Glucose 136 H Calculated Osmolality 264 L Calcium 8.0 L Corrected Calcium 9.2 Phosphorus 2.6 Magnesium 1.9 Total Bilirubin 0.3 AST 40 H ALT 21 Alkaline Phosphatase 175 H B-Natriuretic Peptide Total Protein 5.3 L Albumin 2.5 L Globulin 2.8 Albumin/Globulin Ratio 0.9 L Urine Legionella Ag NOT DETECTED Blood Type O Positive Antibody Screen NEGATIVE Crossmatch See Detail Blood Bank Wristband ID Yes 04/12/24 02:45 WBC 20.3 H RBC 2.90 L Hgb 8.8 L Hct 25.1 L MCV 87 MCH 30.3 MCHC 35.1 RDW Std Deviation 48.1 H Plt Count 127 L Neut % (Auto) 96 H Lymph % (Auto) 3 L [place] % (Auto) 1 Eos % (Auto) 0 Baso % (Auto) 0 Neut # (Auto) 19.5 H Lymph # (Auto) 0.6 L [place] # (Auto) 0.1 Eos # (Auto) 0.0 Baso # (Auto) 0.0 Immature Gran # (Auto) 0.11 H Absolute Nucleated RBC 0.00 Immature Gran % 1 H Nucleated RBC % 0 VBG pH 7.55 VBG pCO2 35 L VBG pO2 33 VBG O2 Sat (Kathy) 71 L VBG Base Excess 8 H Sodium 130 L Potassium 3.4 D Chloride 95 L Carbon Dioxide 28.0 Anion Gap 7 BUN 13 Creatinine 0.4 L Estim Creat Clear Calc 76.9 eGFR > 60 BUN/Creatinine Ratio 33 H Glucose 109 H Calculated Osmolality 261 L Calcium 8.1 L Corrected Calcium 9.3 Phosphorus 2.4 Magnesium 1.8 Total Bilirubin 0.3 AST 32 ALT 19 Alkaline Phosphatase 163 H B-Natriuretic Peptide 1035 H* Total Protein 5.3 L Albumin 2.5 L Globulin 2.8 Albumin/Globulin Ratio 0.9 L Urine Legionella Ag Blood Type Antibody Screen Crossmatch Blood Bank Wristband ID ABG Interpretation ABG results: 03/30/24 04/01/24 04/01/24 13:55 10:25 17:20 ABG pH 7.48 H 7.52 H 7.47 H ABG pCO2 34 31 L 34 ABG pO2 300 H 155 H D 36 L* D ABG HCO3 25 25 25 ABG O2 Saturation 100 H 100 H 70 L ABG Base Excess 2 3 1 VBG pH VBG pCO2 VBG pO2 VBG Base Excess 04/04/24 04/11/24 04/12/24 13:52 11:50 02:45 ABG pH ABG pCO2 ABG pO2 ABG HCO3 ABG O2 Saturation ABG Base Excess VBG pH 7.43 7.46 7.55 VBG pCO2 19 L 41 35 L VBG pO2 136 H 35 33 VBG Base Excess -10 L 5 H 8 H Quality Measures Quality Measures sepsis Current suspected stage: ruled out Possible source: unknown Blood cultures ordered: completed in ED Antibiotic ordered: Yes Advance care planning discussed with:: child Assessment & Plan Assessment Current Active Medications: Generic Name Dose Route Start Last Admin Trade Name Freq PRN Reason Stop Dose Admin Acetaminophen 650 mg 03/30/24 16:17 Acetaminophen 325 Mg Tablet PO 04/29/24 16:16 Q6H PRN Fever >101.5 Acetaminophen 650 mg 03/30/24 16:17 04/11/24 11:43 Acetaminophen 325 Mg Tablet PO 04/29/24 16:16 650 mg Q6H PRN Administration PAIN SCALE 1-3 (mild Aspirin 81 mg 04/06/24 07:35 04/12/24 08:52 Aspirin 81 Mg Chew NG 05/01/24 18:44 81 mg QDAY ROGER Administration Atorvastatin Calcium 80 mg 04/06/24 07:35 04/11/24 21:31 Atorvastatin Calcium 20 Mg Tablet NG 05/01/24 20:59 80 mg HS ROGER Administration Bisacodyl 10 mg 03/30/24 19:00 04/12/24 08:18 Bisacodyl 10 Mg Supp NE 04/29/24 18:59 Not Given QDAY ROGER Protocol Calcium Carbonate 600 mg 04/03/24 09:45 04/12/24 08:51 Calcium Carbonate 600 Mg Tablet NG 05/03/24 09:44 600 mg QDAY ROGER Administration Dextrose 25 ml 03/30/24 16:22 04/01/24 04:58 Dextrose 50%-Water Inj 50 Ml Syringe IV 04/29/24 16:21 25 ml Q15MIN PRN Administration BG 50-70 responsive npo pt Dextrose 50 ml 03/30/24 16:22 Dextrose 50%-Water Inj 50 Ml Syringe IV 04/29/24 16:21 Q15MIN PRN BG <50 OR BG <70 & pt unresponsive Digoxin 0.125 mg 04/11/24 15:45 04/12/24 08:52 Digoxin Inj 0.25 Mg/Ml Amp 2 Ml IVP 05/11/24 15:44 0.125 mg QDAY ROGER Administration Enoxaparin Sodium 40 mg 04/04/24 09:00 04/12/24 08:53 Enoxaparin Sod Inj 40 Mg/0.4 Ml Syringe SC 04/18/24 08:59 40 mg QDAY ROGER Administration Ferrous Sulfate 300 mg 04/13/24 08:00 Ferrous Sulfate 300 Mg/5 Ml Udc PO 05/13/24 07:59 WBR ROGER Folic Acid 1 mg 03/30/24 16:45 04/12/24 08:52 Folic Acid Inj 1 Mg/0.2 Ml IVP 04/29/24 16:44 1 mg QDAY ROGER Administration Furosemide 20 mg 04/12/24 18:00 Furosemide Inj 10 Mg/Ml Vial 2 Ml IVP 05/12/24 17:59 BIDD ROGER Glucagon 1 mg 03/30/24 16:22 Glucagon Inj 1 Mg Vial IM Q15MIN PRN BG <70, and no IV access Hydrocortisone Sodium Succinate 100 mg 04/11/24 15:45 04/12/24 08:52 Hydrocortisone Sod Succ Inj 100 Mg Vial IV 05/11/24 15:44 100 mg Q8H ROGER Administration Norepinephrine/Dextrose 8 mg in 250 mls @ 3.956 mls/hr 04/07/24 14:32 04/12/24 12:42 Levophed In D5w 8mg/250ml IV 05/02/24 20:06 0 mcg/kg/min .Q24H PRN 0 mls/hr PER protocol Titration Protocol 0.05 MCG/KG/MIN Piperacillin/Tazobactam/Dextrose 3.375 gm in 50 mls @ 12.5 mls/hr 04/10/24 06:00 04/12/24 14:28 Zosyn IV 04/17/24 05:59 12.5 mls/hr Q8HR ROGER Administration Vasopressin/Sodium Chloride 20 unit in 100 mls @ 9 mls/hr 04/10/24 01:13 04/11/24 23:36 Vasostrict/Ns Ivpb IV 05/10/24 01:12 0.03 unit/min .Q11H7M PRN 9 mls/hr PER PROTOCOL Administration Protocol 0.03 UNIT/MIN Albumin Human 25 gm in 100 mls @ 100 mls/hr 04/12/24 10:27 04/12/24 14:27 Albuminar-25 Ivpb IV 04/15/24 10:26 100 mls/hr QDAY ROGER Administration Insulin Human Lispro 0 unit 03/30/24 17:00 04/12/24 14:28 Insulin Lispro (Admelog) 1 Unit/0.01 Ml Unit SC 04/29/24 16:59 2 unit Q6HR ROGER Administration Protocol Levothyroxine Sodium 75 mcg 04/13/24 09:00 Levothyroxine Inj 100 Mcg Vial IV 05/13/24 08:59 DAILY ROGER Magnesium Oxide 400 mg 04/10/24 09:00 04/12/24 08:52 Magnesium Oxide 400 Mg Tablet GT 05/11/24 15:00 400 mg BID ROGER Administration Midodrine 10 mg 04/03/24 14:00 04/12/24 14:28 Midodrine 5 Mg Tablet NG 05/03/24 13:59 10 mg TID ROGER Administration Multivitamins/Minerals 15 ml 04/05/24 16:45 04/12/24 08:51 Multivitamin 15 Ml Udc GT 05/05/24 16:44 15 ml QDAY ROGER Administration Ondansetron HCl 4 mg 03/30/24 16:17 Ondansetron Inj 2 Mg/Ml Inj 2 Ml IV 04/29/24 16:16 Q6H PRN NAUSEA OR VOMITING Protocol Pantoprazole Sodium 40 mg 03/30/24 16:30 04/12/24 08:52 Pantoprazole Inj 40 Mg Vial IVP 04/29/24 16:29 40 mg QDAY ROGER Administration Polyethylene Glycol 17 gm 04/10/24 09:00 04/12/24 08:18 Polyethylene Glycol 17 Gm Packet PO 05/10/24 08:59 Not Given QDAY ROGER Sennosides 8.8 mg 04/06/24 17:33 04/07/24 08:03 Sennosides Syrup 8.8 Mg/5 Ml Udc NG 05/06/24 17:32 8.8 mg QDAY PRN Administration CONSTIPATION Protocol Thiamine HCl 100 mg 03/30/24 16:45 04/12/24 08:52 Thiamine Inj 100 Mg/Ml Vial 2 Ml IVP 04/29/24 16:44 100 mg QDAY ROGER Administration Plan Ms. 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 Per chart review and patient's daughter at bedside states patient have been declining physical activity for the past 2 months. She used to be able to walk herself to the restroom, feed herself, and walk around using walker and be able to communicate. But she has become increasingly depressed and bedbound for the last 1 week she has been having urinary incontinence and decreased oral intake. Patient was found unresponsive for which the family called ambulance. In the ED her blood glucose was found to be 13 she received D10 and her blood glucose improved and as well as her mentation. Patient was admitted to the hospital for possible PEG tube placement and treatment of bilateral pneumonia. On 04/02/2024 patient had a rapid response called for blood pressure of 75/44 maintaining MAP below 65 patient was given 1L bolus of normal saline without improvement of blood pressure and MAP; patient was upgraded to the ICU and Levophed was started. Neuro #History of CVA - Pt has a stroke in 2021 with residual deficit on the right side and global aphasia #Acute metabolic encephalopathy secondary to hypoglycemia -resolved -On admission patient's was altered with blood glucose was 13 and patient received D10 and her mentation improved to baseline -Patient's daughter have reported that for the past 2 months patient has become increasingly less physically active Cardio #Shock- - septic shock? 2/ to staph bacteremia has resolved 04/08 and then patient underwent PEG tube placement procedure requiring versed and became hypotensive and levophed was restarted. -on admission pts. BC on 03/30 showed staph bacteremia in 1 of the 2 cultures, Pt has been on antibiotics -started levophed started on 04/03- -midodrine 10mg TID -Dobutamine drip started on 04/04 and D/c'd on 04/05 -vasopressin started on 04/04 and titrating it down as able -repeat echo04/05- EF 45-50% and mild to moderate MR -Patient is on Levophed at 0.23 and vasopressin goal is to wean her off as tolerating maintaining MAP around 65 #Newly diagnosed CHF - improving DDx- takatsubo cardiomyopathy -Pt. may have developed takotsubo cardiomyopathy. Per Pt.'s daughter Tamia her (their father) sent her from [place] recently because he was unable to take care of her. And he does not communicate with her which has caused the Pt. to become increasingly withdrawn and poor oral intake. Patient also lost her grandson that she raised approximately a year ago. -EF 35-40 on echo 03/31 --> repeat echo 04/05 EF 45-50% and mild to moderate MR -In light of shock, will hold guideline directed medical therapy and will resume when able -Patient is started on Lasix 20 Mg 2 times daily and digoxin at 0.125 mg/day -Will check digoxin (started 04/11) levels 6 days after initiating therapy (04/16) -Continue to closely monitor ins and outs and calculate net negative volume #Hx HTN - home meds on hold # Hx. HLD - resumed home atorvastatin #Troponinemia- resolved -on admission ? peaked at 1.033, without ST or T wave changes on EKG Pul # Aspiration pneumonia likely in the setting of dysphagia -Repeat chest x-ray showed worsening diffuse significant bilateral pneumonia -on admission Pts. WBC 17.1 -repeat chest x-ray showed worsening bilateral pneumonia, and patient has developed a productive cough - patient is on sufficient coverage with antibiotics -D/c Azithro 04/02-04/07 -Patient is on Rocephin 04/02- 04/08 -D/C vancomycin due to MRSA negative -Patient is started on Zosyn on 04/10- (continue for 7 days course for aspiration pneumonia) ID #Pneumonia #Bacteremia #leukocytosis -Blood cultures on 03/30/2024-grew Staph aureus on 1 of 2 -Blood cultures since then, urine cultures and MRSA - negative -Repeat chest x-ray 04/06/2024 showed worsening pneumonia Pts is found to have leukocytosis likely reactive in the setting of procedure. Pt remains afebrile, will continue to monitor closely and if she develops a fever with increasing WBC, then will consider BC at that time. -On antibiotics Zosyn -repeat blood cultures from 04/05 prelim no growth GI #Severe Malnutrition -Failure to thrive- patient's BMI is <22 and age >70 -Per patient's daughter, patient has poor oral intake and for 2 months was hiding food under the couch and bed and they often have to feed her with a syringe -likely secondary to poor oral intake -Per [employer] Truer recommendations- Glucerna 1.2 at 20 ml/hr, Thiamine 100mg/day for 7 days, Multivitamins ordered # PEG tube - resume trickle feeds at 20cc with no water flush #Hypoalbuminemia -Albumin is 2.4- likely secondary to nutritional deficiency -Will continue to treat underlying cause by giving adequate nutrition -Colloid fluid bolus given on 04/03, 04/07 Endo #History of type 2 diabetes -Hemoglobin A1c on 03/31 is 6.1, blood glucose 109 -Insulin sliding scale ordered #History of hypothyroidism #Severe hypothyroidism -TSH 20.58, free T4 0.67 during this admission -Tomorrow patient will receive a loading dose of levothyroxine of 200 mcg IV and then will follow-up with 1.6 micro grams per KG IV daily after Renal # Hypokalemia # Hypomagnesemia # Hypovolemic hyponatremia -Likely in the setting of diuresing -Repleted 80 mEq of potassium, repleted magnesium, Heme #Acute anemia - stable -Hemoglobin 8.8 and hematocrit 25.1 -no signs of active bleeding -will continue to monitor -will transfuse again with pRBCs if Hgb <7 DVT prophylaxis-Lovenox Skin #Sacral ulcer -Patient has 2 ulcers in the sacrum -Smaller 1 appears to be stage II and the bigger one appears to be stage III -Frequent pressure redistribution -Wound care is ordered Disposition: ICU for pressor support DVT Prophylaxis: enoxaparin 40mg Qdaily GI Prophylaxis: Pantoprozol-40 IV Qday Diet: PEG tube feedings resumed glucerna 1.2 at 20ml/hr, Code status: DNR/DNI Assessment and plan discussed with my attending physician Dr. Arthur Zaman ([id number])- Internal medicine resident Attending Provider Attestation/Addendum Patient seen and examined with above resident, Ryan Zaman, I agree with the findings, assessment, and plan of care as documented except for any differences below. Patient briefly is off of vasopressors urine output notably declines with this. Patient started on digoxin and central venous saturation shows adequate perfusion. BNP remains elevated. Will plan for continued diuresis with inotropic/vasopressor support as needed. Patient with significant hypothyroidism component and may have been a contributing factor and thus will start on IV levothyroxine along with hydrocortisone for stress dose steroid for relative adrenal insufficiency that may be associated. T3 levels are not available at our hospital and thus need for T3 supplementation is unlikely to be helpful and may actually worsen condition. Additionally dosing adjustments and IV levothyroxine were made to ensure avoidance of precipitating worsening heart disease given her history of cerebrovascular disease and now with Takotsubo cardiomyopathy. Patient remains on Zosyn appropriately for treatment of bacteremia with likely source from pneumonia. Keep n.p.o. for known history of dysphagia and tube feeding are going to PEG tube at this time appropriately. Patient with skin breakdown on sacral wound, severe malnutrition and chronic debility leading to guarded prognosis even with improvement in her multiple comorbidities in the acute setting. Total critical care time: I personally spent 35 minutes for review of physiologic parameters, directing plan of care throughout the day, coordination of care with other specialists, and counseling patient's family at bedside. This is exclusive of time spent teaching housestaff or performing any separate billable procedures. Patient continues require critical care services for combined septic and cardiogenic shock with severe hypothyroidism and aspiration pneumonia. Patient remains at high risk for further morbidity and mortality warranting ongoing close monitoring and treatment only available in the intensive care unit.
[2024-04-12 15:04] LABS: Anion Gap 5 (7-16); BUN/Creatinine Ratio 22 Ratio (12-20); Blood Urea Nitrogen 11 mg/dL (9-23); Calcium 7.6 mg/dL (8.3-10.6); Carbon Dioxide 30.1 mMol/L (20.0-31.0); Chloride 91 mMol/L (98-107); Creatinine (Component) 0.5 mg/dL (0.6-1.3); Estimated Creatinine Clearance 61.2 mL/min (>60); Glucose 179 mg/dL (74-106); Magnesium 2.9 mg/dL (1.6-2.6); Osmolality,Calculated 256 (275-295); Phosphorous 2.5 mg/dL (2.4-5.1); Potassium 3.2 mMol/L (3.4-5.1); Sodium 126 mMol/L (136-145); eGFR > 60 See Note
--- NOTE | 2024-04-12 15:26 | ESPR_ITS ---
Documentation for date of: 04/12/24 Subjective Subjective Interval history: Patient was seen and examined at bedside this morning. No overnight events Telemetry showed sinus rhythm. Patient's TSH was 20.58 as well as free T4 was 0.467 during this admission and patient is only oral thyroxine and was given additional loading dose of levothyroxine 20 mcg IV along with some hydrocortisone. Patient has been tapered off both vasopressors today and looks like the entire clinical picture was mostly secondary to severe hypothyroidism. Patient maintaining her blood pressure on her present regimen of midodrine 10 mg 3 times daily this morning during my examination. Will continue to monitor closely and the ICU for the next 24 hours and can be transferred out if hemodynamically stable and does not require pressors anymore. Keep potassium greater than 4 and magnesium greater than 2.0 at all times with avoid any kind of arrhythmias. Patient did receive digoxin but recommend to hold it for now as the patient is hypokalemic. Hemoglobin dropped to 6.9 and received transfusions and better at 7.9 right now. Echo on 04/05/2024 had the following findings: Normal left ventricular size, wall thickness. Low normal systolic function. Estimated 45-50%. RV is normal in size and systolic function. The estimated RVSP, 34 mmHg. RAP 5. Moderate MAC. Mild to moderate MR. Mild sclerosis without stenosis. Mild AI. Findings showed significant improvement, but was on pressors and could indicate possible Takotsubo syndrome which could be possibly secondary to the sepsis Patient currently DNR/DNI Exam Vital Signs Temp Pulse Resp BP Pulse Ox O2 Del Method O2 Flow Rate 97.1 F 70 20 105/58 L 94 L Room Air 1 04/12/24 12:00 04/12/24 15:15 04/12/24 15:15 04/12/24 15:15 04/12/24 15:15 04/12/24 13:00 04/11/24 18:32 FiO2 2 04/10/24 09:00 Narrative Exam General:nonverbal, cachectic, temporal wasting, fragile, thin Eyes: able to trace Ears: No visible ear discharge Nose: No visible nasal discharge. Mouth/Throat: Dry mucous membranes,poor dentattion Neck: Neck supple, non-tender, no cervical lymphadenopathy. Lungs: Clear LEONEL to auscultation and percussion, No accessory muscle use. Cardio: Normal S1/S2, regular rhythm, no murmurs, no JVD Abdomen: Soft, non-tender, no palpable masses, peristalsis present, no guarding or rebound. Peg tube in place with no drainage and wrapped by abdominal binder. Extremities: Symmetrical, contractures of LEONEL LE, no peripheral edema , non- tender, peripheral pulses presents, LEONEL UE swelling likely due to IV lines Skin: No rashes, no lesions, warm to touch. Neuro: Could not be assessed due to patient's current condition, able to move all extremities's Objective Labs 04/12/24 02:45 04/13/24 05:22 Labs: Laboratory Results - last 24 hr 04/02/24 04/11/24 04/12/24 01:57 09:12 00:47 WBC RBC Hgb 8.7 L D Hct 24.8 L MCV MCH MCHC RDW Std Deviation Plt Count Neut % (Auto) Lymph % (Auto) [place] % (Auto) Eos % (Auto) Baso % (Auto) Neut # (Auto) Lymph # (Auto) [place] # (Auto) Eos # (Auto) Baso # (Auto) Immature Gran # (Auto) Absolute Nucleated RBC Immature Gran % Nucleated RBC % VBG pH VBG pCO2 VBG pO2 VBG O2 Sat (Kathy) VBG Base Excess Sodium 131 L Potassium 3.9 D Chloride 95 L Carbon Dioxide 29.1 Anion Gap 7 BUN 13 Creatinine 0.5 L Estim Creat Clear Calc 61.5 eGFR > 60 BUN/Creatinine Ratio 26 H Glucose 136 H Calculated Osmolality 264 L Calcium 8.0 L Corrected Calcium 9.2 Phosphorus 2.6 Magnesium 1.9 Total Bilirubin 0.3 AST 40 H ALT 21 Alkaline Phosphatase 175 H B-Natriuretic Peptide Total Protein 5.3 L Albumin 2.5 L Globulin 2.8 Albumin/Globulin Ratio 0.9 L Urine Legionella Ag NOT DETECTED Blood Type O Positive Antibody Screen NEGATIVE Crossmatch See Detail Blood Bank Wristband ID Yes 04/12/24 04/12/24 02:45 14:29 WBC 20.3 H RBC 2.90 L Hgb 8.8 L Hct 25.1 L MCV 87 MCH 30.3 MCHC 35.1 RDW Std Deviation 48.1 H Plt Count 127 L Neut % (Auto) 96 H Lymph % (Auto) 3 L [place] % (Auto) 1 Eos % (Auto) 0 Baso % (Auto) 0 Neut # (Auto) 19.5 H Lymph # (Auto) 0.6 L [place] # (Auto) 0.1 Eos # (Auto) 0.0 Baso # (Auto) 0.0 Immature Gran # (Auto) 0.11 H Absolute Nucleated RBC 0.00 Immature Gran % 1 H Nucleated RBC % 0 VBG pH 7.55 VBG pCO2 35 L VBG pO2 33 VBG O2 Sat (Kathy) 71 L VBG Base Excess 8 H Sodium 130 L 126 L Potassium 3.4 D 3.2 L Chloride 95 L 91 L Carbon Dioxide 28.0 30.1 Anion Gap 7 5 L BUN 13 11 Creatinine 0.4 L 0.5 L Estim Creat Clear Calc 76.9 61.2 eGFR > 60 > 60 BUN/Creatinine Ratio 33 H 22 H Glucose 109 H 179 H D Calculated Osmolality 261 L 256 L Calcium 8.1 L 7.6 L Corrected Calcium 9.3 Phosphorus 2.4 2.5 Magnesium 1.8 2.9 H Total Bilirubin 0.3 AST 32 ALT 19 Alkaline Phosphatase 163 H B-Natriuretic Peptide 1035 H* Total Protein 5.3 L Albumin 2.5 L Globulin 2.8 Albumin/Globulin Ratio 0.9 L Urine Legionella Ag Blood Type Antibody Screen Crossmatch Blood Bank Wristband ID ABG Interpretation ABG results: 03/30/24 04/01/24 04/01/24 13:55 10:25 17:20 ABG pH 7.48 H 7.52 H 7.47 H ABG pCO2 34 31 L 34 ABG pO2 300 H 155 H D 36 L* D ABG HCO3 25 25 25 ABG O2 Saturation 100 H 100 H 70 L ABG Base Excess 2 3 1 VBG pH VBG pCO2 VBG pO2 VBG Base Excess 04/04/24 04/11/24 04/12/24 13:52 11:50 02:45 ABG pH ABG pCO2 ABG pO2 ABG HCO3 ABG O2 Saturation ABG Base Excess VBG pH 7.43 7.46 7.55 VBG pCO2 19 L 41 35 L VBG pO2 136 H 35 33 VBG Base Excess -10 L 5 H 8 H Assessment & Plan A&P Narrative 79-year-old female with past medical history of hypertension, hyperlipidemia, 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 1. Acute decompensated systolic heart failure (EF 45 to 50%) 2. NSTEMI 3. Essential hypertension ?Given patient's elevated troponins which peaked at 1.033 and down trended this is most likely NSTEMI type II likely demand ischemia ?Given patient is a poor candidate for heart catheterization at this time due to other comorbidities we will treat medically for now ?Patient's blood pressure has been under control during her hospital stay. ?Echo done on 03/31/2024 has had the following findings: Negative bubble study. TTE is suboptimal to rule out PFO or ASD. Consider GLORIA if high clincial suspicion. Normal LV size. Moderate to severe LV systolic dysfunction with an EF of around 35 to 40%.Severe hypokinesis of the mid to apical septum, apical anterior and apical anterolateral segments and akinetic apex indicating possible LAD involvement versus Takotsubo syndrome. Difficult to comment on apical thrombus due to lack of definity. Normal RV size and function. Mild TR Moderate MAC. Mild MR Mild AV sclerosis without stenosis with mild AI. ?Patient most likely has some underlying CAD, but given multiple comorbidities and current clinical status she is not a good candidate for heart catheterization and family is aware of this and are in agreement. ? Patient's differential diagnosis includes Takotsubo versus LAD involvement given her, but given her multiple comorbidities, bedbound status, and severe contractions she is not a good candidate for heart catheterization given that she could not lay flat on the [employer] table. Should be attributed medically for now. -Echo on 04/05/2024 had the following findings: Normal left ventricular size, wall thickness. Low normal systolic function. Estimated 45-50%. RV is normal in size and systolic function. The estimated RVSP, 34 mmHg. RAP 5. Moderate MAC. Mild to moderate MR. Mild sclerosis without stenosis. Mild AI. -Findings showed significant improvement, but was on pressors and could indicate possible Takotsubo syndrome which could be possibly secondary to the sepsis Plan: ?Recommend to hold off on goal-directed medical therapy with beta-devon, Entresto as well as spironolactone as patient is still hypotensive and requiring increase of vasopressor. -can start patient in oral diuresis if BP allows and patient becomes fluid overloaded. ?Patient should also be on aspirin and statin ?No need to trend troponins 04/12/2024: Telemetry showed sinus rhythm. Patient's TSH was 20.58 as well as free T4 was 0.467 during this admission and patient is only oral thyroxine and was given additional loading dose of levothyroxine 20 mcg IV along with some hydrocortisone. Patient has been tapered off both vasopressors today and looks like the entire clinical picture was mostly secondary to severe hypothyroidism. Patient maintaining her blood pressure on her present regimen of midodrine 10 mg 3 times daily this morning during my examination. Will continue to monitor closely and the ICU for the next 24 hours and can be transferred out if hemodynamically stable and does not require pressors anymore. Keep potassium greater than 4 and magnesium greater than 2.0 at all times with avoid any kind of arrhythmias. Patient did receive digoxin but recommend to hold it for now as the patient is hypokalemic. Hemoglobin dropped to 6.9 and received transfusions and better at 7.9 right now. 4. Acute encephalopathy 5. Hypoglycemia 6. DM2 ?Patient has been taking glyburide 5 mg as well as metformin 625 mg 3 times daily which could have precipitated his patient hypoglycemia in the event that she has been having poor oral intake. ? Continue current management as per primary care team 7. Failure to thrive ?Patient may benefit from PEG tube placement as she has been having poor oral intake for the past few weeks. ? Recommend to follow GI recommendations ? Continue current management as per primary care team 8. CVA with residual right-sided deficits 9. Hyperlipidemia ? Continue current management as primary care team Management of rest of the medical conditions as per primary team and other consultants. Thank you for the consult and allowing me to participate in the care of the patient. Cardiology will continue to follow. Rao Dodson M.D. Interventional Cardiology Time Spent With Patient Time: Total time spent is greater than 50% in coordination of care (as documented) at patient's floor/unit and/or counseling patient:
--- NOTE | 2024-04-12 15:37 | PC.SS ---
Update: Patient on room air. PEG has been placed. Patient remains on pressor support.
--- NOTE | 2024-04-12 19:27 | PD.IMPROG ---
Documentation for date of: 04/12/24 Subjective Subjective Interval history: No drainage at the PEG site On Levophed for hypotension Exam Vital Signs Temp Pulse Resp BP Pulse Ox O2 Del Method O2 Flow Rate 97.8 F 62 16 117/55 L 98 Room Air 1 04/12/24 16:00 04/12/24 18:15 04/12/24 18:15 04/12/24 18:00 04/12/24 18:15 04/12/24 16:00 04/11/24 18:32 FiO2 2 04/10/24 09:00 Objective Labs 04/12/24 02:45 04/12/24 14:29 Labs: Laboratory Results - last 24 hr 04/02/24 04/11/24 04/12/24 01:57 09:12 00:47 WBC RBC Hgb 8.7 L D Hct 24.8 L MCV MCH MCHC RDW Std Deviation Plt Count Neut % (Auto) Lymph % (Auto) [place] % (Auto) Eos % (Auto) Baso % (Auto) Neut # (Auto) Lymph # (Auto) [place] # (Auto) Eos # (Auto) Baso # (Auto) Immature Gran # (Auto) Absolute Nucleated RBC Immature Gran % Nucleated RBC % VBG pH VBG pCO2 VBG pO2 VBG O2 Sat (Kathy) VBG Base Excess Sodium 131 L Potassium 3.9 D Chloride 95 L Carbon Dioxide 29.1 Anion Gap 7 BUN 13 Creatinine 0.5 L Estim Creat Clear Calc 61.5 eGFR > 60 BUN/Creatinine Ratio 26 H Glucose 136 H Calculated Osmolality 264 L Calcium 8.0 L Corrected Calcium 9.2 Phosphorus 2.6 Magnesium 1.9 Total Bilirubin 0.3 AST 40 H ALT 21 Alkaline Phosphatase 175 H B-Natriuretic Peptide Total Protein 5.3 L Albumin 2.5 L Globulin 2.8 Albumin/Globulin Ratio 0.9 L Urine Legionella Ag NOT DETECTED Blood Type O Positive Antibody Screen NEGATIVE Crossmatch See Detail Blood Bank Wristband ID Yes 04/12/24 04/12/24 02:45 14:29 WBC 20.3 H RBC 2.90 L Hgb 8.8 L Hct 25.1 L MCV 87 MCH 30.3 MCHC 35.1 RDW Std Deviation 48.1 H Plt Count 127 L Neut % (Auto) 96 H Lymph % (Auto) 3 L [place] % (Auto) 1 Eos % (Auto) 0 Baso % (Auto) 0 Neut # (Auto) 19.5 H Lymph # (Auto) 0.6 L [place] # (Auto) 0.1 Eos # (Auto) 0.0 Baso # (Auto) 0.0 Immature Gran # (Auto) 0.11 H Absolute Nucleated RBC 0.00 Immature Gran % 1 H Nucleated RBC % 0 VBG pH 7.55 VBG pCO2 35 L VBG pO2 33 VBG O2 Sat (Kathy) 71 L VBG Base Excess 8 H Sodium 130 L 126 L Potassium 3.4 D 3.2 L Chloride 95 L 91 L Carbon Dioxide 28.0 30.1 Anion Gap 7 5 L BUN 13 11 Creatinine 0.4 L 0.5 L Estim Creat Clear Calc 76.9 61.2 eGFR > 60 > 60 BUN/Creatinine Ratio 33 H 22 H Glucose 109 H 179 H D Calculated Osmolality 261 L 256 L Calcium 8.1 L 7.6 L Corrected Calcium 9.3 Phosphorus 2.4 2.5 Magnesium 1.8 2.9 H Total Bilirubin 0.3 AST 32 ALT 19 Alkaline Phosphatase 163 H B-Natriuretic Peptide 1035 H* Total Protein 5.3 L Albumin 2.5 L Globulin 2.8 Albumin/Globulin Ratio 0.9 L Urine Legionella Ag Blood Type Antibody Screen Crossmatch Blood Bank Wristband ID Impressions Impression: # Failure to thrive # Enteral hyperalimentation through the PEG tube hypotension on Levophed # ABG Interpretation ABG results: 03/30/24 04/01/24 04/01/24 13:55 10:25 17:20 ABG pH 7.48 H 7.52 H 7.47 H ABG pCO2 34 31 L 34 ABG pO2 300 H 155 H D 36 L* D ABG HCO3 25 25 25 ABG O2 Saturation 100 H 100 H 70 L ABG Base Excess 2 3 1 VBG pH VBG pCO2 VBG pO2 VBG Base Excess 04/04/24 04/11/24 04/12/24 13:52 11:50 02:45 ABG pH ABG pCO2 ABG pO2 ABG HCO3 ABG O2 Saturation ABG Base Excess VBG pH 7.43 7.46 7.55 VBG pCO2 19 L 41 35 L VBG pO2 136 H 35 33 VBG Base Excess -10 L 5 H 8 H Assessment & Plan A&P Narrative 79-year-old female with past medical history of hypertension, hyperlipidemia, 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 1. Acute decompensated systolic heart failure (EF 45 to 50%) 2. NSTEMI 3. Essential hypertension ?Given patient's elevated troponins which peaked at 1.033 and down trended this is most likely NSTEMI type II likely demand ischemia ?Given patient is a poor candidate for heart catheterization at this time due to other comorbidities we will treat medically for now ?Patient's blood pressure has been under control during her hospital stay. ?Echo done on 03/31/2024 has had the following findings: Negative bubble study. TTE is suboptimal to rule out PFO or ASD. Consider GLORIA if high clincial suspicion. Normal LV size. Moderate to severe LV systolic dysfunction with an EF of around 35 to 40%.Severe hypokinesis of the mid to apical septum, apical anterior and apical anterolateral segments and akinetic apex indicating possible LAD involvement versus Takotsubo syndrome. Difficult to comment on apical thrombus due to lack of definity. Normal RV size and function. Mild TR Moderate MAC. Mild MR Mild AV sclerosis without stenosis with mild AI. ?Patient most likely has some underlying CAD, but given multiple comorbidities and current clinical status she is not a good candidate for heart catheterization and family is aware of this and are in agreement. -Patient is currently on norepinephrine at 3.836 mL/h as well as midodrine 5 mg 3 times daily ? 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 Should be attributed medically for now. -Echo on 04/05/2024 had the following findings: Normal left ventricular size, wall thickness. Low normal systolic function. Estimated 45-50%. RV is normal in size and systolic function. The estimated RVSP, 34 mmHg. RAP 5. Moderate MAC. Mild to moderate MR. Mild sclerosis without stenosis. Mild AI. -Findings showed significant improvement, but was on pressors and could indicate possible Takotsubo syndrome which could be possibly secondary to the sepsis Plan: ?Recommend to hold off on goal-directed medical therapy with beta-devon, Entresto as well as spironolactone as patient is still hypotensive and requiring increase of vasopressor. -Continue pressor support for now. - Patient clinical condition slowly improving and Levophed requirements are decreasing - Vasopressin and dobutamine was discontinued over the last couple of days. -can start patient in oral diuresis if BP allows and patient becomes fluid overloaded. ?Patient should also be on aspirin and statin ?No need to trend troponins 4. Acute encephalopathy 5. Hypoglycemia 6. DM2 ?Patient has been taking glyburide 5 mg as well as metformin 625 mg 3 times daily which could have precipitated his patient hypoglycemia in the event that she has been having poor oral intake. ? Continue current management as per primary care team 7. Failure to thrive ?Patient may benefit from PEG tube placement as she has been having poor oral intake for the past few weeks. ? Recommend to follow GI recommendations ? Continue current management as per primary care team 8. CVA with residual right-sided deficits 9. Hyperlipidemia ? Continue current management as primary care team Management of rest of the medical conditions as per primary team and other consultants. Thank you for the consult and allowing me to participate in the care of the patient. Cardiology will continue to follow. Rao Dodson M.D. Interventional Cardiology Time Spent With Patient Time: Total time spent is greater than 50% in coordination of care (as documented) at patient's floor/unit and/or counseling patient:
[2024-04-12] MEDS: ATORVASTATIN CALCIUM 20 MG TABLET 80 MG NG (21:25)
[2024-04-12 22:18] LABS: Magnesium 1.9 mg/dL (1.6-2.6); Phosphorous 2.5 mg/dL (2.4-5.1)
[2024-04-13] VITALS (117 sets, daily range): BP systolic 79–135; BP diastolic 37–74; PULSE 51–89; RESP 0–41; TEMP 36.3–36.7; O2SAT 87–98; BMI 22.4
[2024-04-13] MEDS: INSULIN LISPRO (AdmeLOG) 1 UNIT/0.01 ML UNIT SC ×4 (00:16→18:14)
[2024-04-13 01:46] LABS: Anion Gap 7 (7-16); BUN/Creatinine Ratio 28 Ratio (12-20); Blood Urea Nitrogen 14 mg/dL (9-23); Calcium 8.3 mg/dL (8.3-10.6); Carbon Dioxide 31.9 mMol/L (20.0-31.0); Chloride 90 mMol/L (98-107); Creatinine (Component) 0.5 mg/dL (0.6-1.3); Estimated Creatinine Clearance 61.2 mL/min (>60); Glucose 136 mg/dL (74-106); Magnesium 1.9 mg/dL (1.6-2.6); Osmolality,Calculated 261 (275-295); Phosphorous 2.3 mg/dL (2.4-5.1); Sodium 129 mMol/L (136-145); eGFR > 60 See Note
[2024-04-13] MEDS: POTASSIUM CHLORIDE 10% 20 MEQ/15 ML UDC 40 MEQ GT ×3 (05:36→11:46)
[2024-04-13] MEDS: POT PHOS 15 mMol in NS 250 ML 15 MMOL/250 ML BAG 62.5 MMOL IV (05:36)
[2024-04-13] MEDS: FUROSEMIDE INJ 10 MG/ML VIAL 2 ML 20 MG IVP (05:37)
[2024-04-13] MEDS: PIPER/TAZO 3.375 GM 3.375 GM/50 ML BAG IV ×3 (05:37→21:40)
[2024-04-13] MEDS: Magnesium Sulfate 2 GM Ivpb 2 GM/50 ML BAG IV (05:37)
[2024-04-13] MEDS: MIDODRINE 5 MG TABLET 10 MG NG ×3 (05:38→21:40)
[2024-04-13 06:43] LABS: Anion Gap 6 (7-16); BUN/Creatinine Ratio 28 Ratio (12-20); Blood Urea Nitrogen 14 mg/dL (9-23); Calcium 7.9 mg/dL (8.3-10.6); Carbon Dioxide 31.5 mMol/L (20.0-31.0); Chloride 90 mMol/L (98-107); Creatinine (Component) 0.5 mg/dL (0.6-1.3); Estimated Creatinine Clearance 61.2 mL/min (>60); Glucose 141 mg/dL (74-106); Magnesium 1.9 mg/dL (1.6-2.6); Osmolality,Calculated 257 (275-295); Phosphorous 2.4 mg/dL (2.4-5.1); Potassium 2.8 mMol/L (3.4-5.1); Sodium 127 mMol/L (136-145); eGFR > 60 See Note
--- NOTE | 2024-04-13 07:36 | PD.IMPROG ---
Documentation for date of: 04/13/24 Subjective Subjective Interval history: Patient was seen and examined at bedside this morning. No overnight events Patient's TSH was 20.58 as well as free T4 was 0.467 during this admission and patient is only oral thyroxine and was given additional loading dose of levothyroxine 20 mcg IV along with some hydrocortisone. Patient started on treatment for hypothyroidism based on her clinical picture and was tapered off vasopressors yesterday Patient developed fever and some cough and is on IV antibiotics and started on pressors again and is only on vasopressin during my visit today. Heart rate is well-controlled and patient still continues to be in atrial fibrillation but rate well-controlled. Hemoglobin better after the transfusions. Patient did receive digoxin but is on hold as the patient is hypokalemic. Telemetry shows intermittent A-fib Continue to monitor telemetry closely Continue midodrine 10 mg 3 times a day. Continue to monitor in ICU for another 24 hours before she can be transferred out if hemodynamically stable and does not require pressors anymore Echo on 04/05/2024 had the following findings: Normal left ventricular size, wall thickness. Low normal systolic function. Estimated 45-50%. RV is normal in size and systolic function. The estimated RVSP, 34 mmHg. RAP 5. Moderate MAC. Mild to moderate MR. Mild sclerosis without stenosis. Mild AI. Findings showed significant improvement, but was on pressors and could indicate possible Takotsubo syndrome which could be possibly secondary to the sepsis Patient currently DNR/DNI Exam Vital Signs Temp Pulse Resp BP Pulse Ox O2 Del Method O2 Flow Rate 98.0 F 75 20 108/57 L 95 Room Air 1 04/12/24 20:00 04/13/24 06:16 04/13/24 06:16 04/13/24 05:38 04/13/24 06:16 04/12/24 16:00 04/11/24 18:32 FiO2 2 04/10/24 09:00 Narrative Exam General:nonverbal, cachectic, temporal wasting, fragile, thin Eyes: able to trace Ears: No visible ear discharge Nose: No visible nasal discharge. Mouth/Throat: Dry mucous membranes,poor dentattion Neck: Neck supple, non-tender, no cervical lymphadenopathy. Lungs: Clear LEONEL to auscultation and percussion, No accessory muscle use. Cardio: Normal S1/S2, regular rhythm, no murmurs, no JVD Abdomen: Soft, non-tender, no palpable masses, peristalsis present, no guarding or rebound. Peg tube in place with no drainage and wrapped by abdominal binder. Extremities: Symmetrical, contractures of LEONEL LE, no peripheral edema , non-tender, peripheral pulses presents, LEONEL UE swelling likely due to IV lines Skin: No rashes, no lesions, warm to touch. Neuro: Could not be assessed due to patient's current condition, able to move all extremities's Objective Labs 04/12/24 02:45 04/13/24 05:22 Labs: Laboratory Results - last 24 hr 04/11/24 04/12/24 04/12/24 09:12 14:29 21:47 Sodium 126 L Potassium 3.2 L Chloride 91 L Carbon Dioxide 30.1 Anion Gap 5 L BUN 11 Creatinine 0.5 L Estim Creat Clear Calc 61.2 eGFR > 60 BUN/Creatinine Ratio 22 H Glucose 179 H D Calculated Osmolality 256 L Calcium 7.6 L Phosphorus 2.5 2.5 Magnesium 2.9 H 1.9 Crossmatch See Detail 04/13/24 04/13/24 00:36 05:22 Sodium 129 L 127 L Potassium 3.0 L 2.8 L Chloride 90 L 90 L Carbon Dioxide 31.9 H 31.5 H Anion Gap 7 6 L BUN 14 14 Creatinine 0.5 L 0.5 L Estim Creat Clear Calc 61.2 61.2 eGFR > 60 > 60 BUN/Creatinine Ratio 28 H 28 H Glucose 136 H 141 H Calculated Osmolality 261 L 257 L Calcium 8.3 7.9 L Phosphorus 2.3 L 2.4 Magnesium 1.9 1.9 Crossmatch ABG Interpretation ABG results: 03/30/24 04/01/24 04/01/24 13:55 10:25 17:20 ABG pH 7.48 H 7.52 H 7.47 H ABG pCO2 34 31 L 34 ABG pO2 300 H 155 H D 36 L* D ABG HCO3 25 25 25 ABG O2 Saturation 100 H 100 H 70 L ABG Base Excess 2 3 1 VBG pH VBG pCO2 VBG pO2 VBG Base Excess 04/04/24 04/11/24 04/12/24 13:52 11:50 02:45 ABG pH ABG pCO2 ABG pO2 ABG HCO3 ABG O2 Saturation ABG Base Excess VBG pH 7.43 7.46 7.55 VBG pCO2 19 L 41 35 L VBG pO2 136 H 35 33 VBG Base Excess -10 L 5 H 8 H Assessment & Plan A&P Narrative 79-year-old female with past medical history of hypertension, hyperlipidemia, 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 1. Acute decompensated systolic heart failure (EF 45 to 50%) 2. NSTEMI 3. Essential hypertension ?Given patient's elevated troponins which peaked at 1.033 and down trended this is most likely NSTEMI type II likely demand ischemia ?Given patient is a poor candidate for heart catheterization at this time due to other comorbidities we will treat medically for now ?Patient's blood pressure has been under control during her hospital stay. ?Echo done on 03/31/2024 has had the following findings: Negative bubble study. TTE is suboptimal to rule out PFO or ASD. Consider GLORIA if high clincial suspicion. Normal LV size. Moderate to severe LV systolic dysfunction with an EF of around 35 to 40%.Severe hypokinesis of the mid to apical septum, apical anterior and apical anterolateral segments and akinetic apex indicating possible LAD involvement versus Takotsubo syndrome. Difficult to comment on apical thrombus due to lack of definity. Normal RV size and function. Mild TR Moderate MAC. Mild MR Mild AV sclerosis without stenosis with mild AI. ?Patient most likely has some underlying CAD, but given multiple comorbidities and current clinical status she is not a good candidate for heart catheterization and family is aware of this and are in agreement. ? Patient's differential diagnosis includes Takotsubo versus LAD involvement given her, but given her multiple comorbidities, bedbound status, and severe contractions she is not a good candidate for heart catheterization given that she could not lay flat on the [employer]istered [employer] table. Should be attributed medically for now. -Echo on 04/05/2024 had the following findings: Normal left ventricular size, wall thickness. Low normal systolic function. Estimated 45-50%. RV is normal in size and systolic function. The estimated RVSP, 34 mmHg. RAP 5. Moderate MAC. Mild to moderate MR. Mild sclerosis without stenosis. Mild AI. -Findings showed significant improvement, but was on pressors and could indicate possible Takotsubo syndrome which could be possibly secondary to the sepsis Plan: ?Recommend to hold off on goal-directed medical therapy with beta-devon, Entresto as well as spironolactone as patient is still hypotensive and requiring increase of vasopressor. -can start patient in oral diuresis if BP allows and patient becomes fluid overloaded. ?Patient should also be on aspirin and statin ?No need to trend troponins 04/13/2024: Patient's TSH was 20.58 as well as free T4 was 0.467 during this admission and patient is only oral thyroxine and was given additional loading dose of levothyroxine 20 mcg IV along with some hydrocortisone. Patient started on treatment for hypothyroidism based on her clinical picture and was tapered off vasopressors yesterday Patient developed fever and some cough and is on IV antibiotics and started on pressors again and is only on vasopressin during my visit today. Heart rate is well-controlled and patient still continues to be in atrial fibrillation but rate well-controlled. Hemoglobin better after the transfusions. Patient did receive digoxin but is on hold as the patient is hypokalemic. Telemetry shows intermittent A-fib Continue to monitor telemetry closely Continue midodrine 10 mg 3 times a day. Continue to monitor in ICU for another 24 hours before she can be transferred out if hemodynamically stable and does not require pressors anymore 4. Acute encephalopathy 5. Hypoglycemia 6. DM2 ?Patient has been taking glyburide 5 mg as well as metformin 625 mg 3 times daily which could have precipitated his patient hypoglycemia in the event that she has been having poor oral intake. ? Continue current management as per primary care team 7. Failure to thrive ?Patient may benefit from PEG tube placement as she has been having poor oral intake for the past few weeks. ? Recommend to follow GI recommendations ? Continue current management as per primary care team 8. CVA with residual right-sided deficits 9. Hyperlipidemia ? Continue current management as primary care team Management of rest of the medical conditions as per primary team and other consultants. Thank you for the consult and allowing me to participate in the care of the patient. Cardiology will continue to follow. Rao Dodson M.D. Interventional Cardiology Time Spent With Patient Time: Total time spent is greater than 50% in coordination of care (as documented) at patient's floor/unit and/or counseling patient:
[2024-04-13] MEDS: HYDROCORTISONE SOD SUCC INJ 100 MG VIAL IV ×3 (09:08→21:40)
[2024-04-13] MEDS: PANTOPRAZOLE INJ 40 MG VIAL IVP (09:10)
[2024-04-13] MEDS: ALBUMIN HUMAN 25% IVPB 25 GM/100 ML BTL IV (09:12)
[2024-04-13] MEDS: ENOXAPARIN SOD INJ 40 MG/0.4 ML SYRINGE SC (09:16)
[2024-04-13] MEDS: Ferrous Sulfate 300 MG/5 ML UDC PO (09:16)
[2024-04-13] MEDS: ASPIRIN 81 MG CHEW NG (09:16)
[2024-04-13] MEDS: MULTIVITAMIN 15 ML UDC GT (09:16)
[2024-04-13] MEDS: FOLIC ACID INJ 1 MG/0.2 ML IVP (09:17)
[2024-04-13] MEDS: MAGNESIUM OXIDE 400 MG TABLET GT ×2 (09:17→21:40)
[2024-04-13] MEDS: POLYETHYLENE GLYCOL 17 GM PACKET PO (09:17)
[2024-04-13] MEDS: CALCIUM CARBONATE 600 MG TABLET NG (09:17)
[2024-04-13] MEDS: THIAMINE INJ 100 MG/ML VIAL 2 ML IVP (09:18)
[2024-04-13] MEDS: LEVOTHYROXINE INJ 100 mCg VIAL 75 MCG IV (09:19)
[2024-04-13] MEDS: DIGOXIN INJ 0.25 MG/ML AMP 2 ML 0.125 MG IVP (09:20)
[2024-04-13] MEDS: VASOPRESSIN IN NS IVPB 20 UNIT/100 ML BAG 9 UNIT IV (11:45)
[2024-04-13 13:22] LABS: Base Excess, Venous 7 (-3-3); O2 Saturation, Venous 83 % (96-97); PCO2, Venous 42 mmHg (36-56); PO2, Venous 46 mmHg (15-58); pH, Venous 7.48 (7.33-7.66)
[2024-04-13 13:23] LABS: Lactate (Lactic Acid) 2.4 mMol/L (0.4-2.0)
[2024-04-13] MEDS: ACETAMINOPHEN 325 MG TABLET 650 MG PO (13:37)
--- NOTE | 2024-04-13 13:39 | PD.IMPROG ---
Documentation for date of: 04/13/24 Subjective Subjective Interval history: Patient evaluated Enteral feeding at 20 cc an hour I checked the PEG site looks fine and no drainage Exam Vital Signs Temp Pulse Resp BP Pulse Ox O2 Del Method O2 Flow Rate 98.0 F 82 15 96/48 L 95 Room Air 1 04/13/24 08:00 04/13/24 13:37 04/13/24 09:30 04/13/24 13:37 04/13/24 09:30 04/13/24 09:00 04/11/24 18:32 FiO2 2 04/10/24 09:00 Objective Labs 04/12/24 02:45 04/13/24 05:22 Labs: Laboratory Results - last 24 hr 04/11/24 04/12/24 04/12/24 09:12 14:29 21:47 VBG pH VBG pCO2 VBG pO2 VBG O2 Sat (Kathy) VBG Base Excess Sodium 126 L Potassium 3.2 L Chloride 91 L Carbon Dioxide 30.1 Anion Gap 5 L BUN 11 Creatinine 0.5 L Estim Creat Clear Calc 61.2 eGFR > 60 BUN/Creatinine Ratio 22 H Glucose 179 H D Calculated Osmolality 256 L Lactic Acid Calcium 7.6 L Phosphorus 2.5 2.5 Magnesium 2.9 H 1.9 Crossmatch See Detail 04/13/24 04/13/24 04/13/24 00:36 05:22 12:58 VBG pH 7.48 VBG pCO2 42 VBG pO2 46 VBG O2 Sat (Kathy) 83 L VBG Base Excess 7 H Sodium 129 L 127 L Potassium 3.0 L 2.8 L Chloride 90 L 90 L Carbon Dioxide 31.9 H 31.5 H Anion Gap 7 6 L BUN 14 14 Creatinine 0.5 L 0.5 L Estim Creat Clear Calc 61.2 61.2 eGFR > 60 > 60 BUN/Creatinine Ratio 28 H 28 H Glucose 136 H 141 H Calculated Osmolality 261 L 257 L Lactic Acid 2.4 H Calcium 8.3 7.9 L Phosphorus 2.3 L 2.4 Magnesium 1.9 1.9 Crossmatch Impressions Impression: # Failure to thrive # Enteral hyperalimentation via PEG tube to continue Slowly increase the rate as tolerated ABG Interpretation ABG results: 03/30/24 04/01/24 04/01/24 13:55 10:25 17:20 ABG pH 7.48 H 7.52 H 7.47 H ABG pCO2 34 31 L 34 ABG pO2 300 H 155 H D 36 L* D ABG HCO3 25 25 25 ABG O2 Saturation 100 H 100 H 70 L ABG Base Excess 2 3 1 VBG pH VBG pCO2 VBG pO2 VBG Base Excess 04/04/24 04/11/24 04/12/24 13:52 11:50 02:45 ABG pH ABG pCO2 ABG pO2 ABG HCO3 ABG O2 Saturation ABG Base Excess VBG pH 7.43 7.46 7.55 VBG pCO2 19 L 41 35 L VBG pO2 136 H 35 33 VBG Base Excess -10 L 5 H 8 H 04/13/24 12:58 ABG pH ABG pCO2 ABG pO2 ABG HCO3 ABG O2 Saturation ABG Base Excess VBG pH 7.48 VBG pCO2 42 VBG pO2 46 VBG Base Excess 7 H Assessment & Plan A&P Narrative 79-year-old female with past medical history of hypertension, hyperlipidemia, 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 1. Acute decompensated systolic heart failure (EF 45 to 50%) 2. NSTEMI 3. Essential hypertension ?Given patient's elevated troponins which peaked at 1.033 and down trended this is most likely NSTEMI type II likely demand ischemia ?Given patient is a poor candidate for heart catheterization at this time due to other comorbidities we will treat medically for now ?Patient's blood pressure has been under control during her hospital stay. ?Echo done on 03/31/2024 has had the following findings: Negative bubble study. TTE is suboptimal to rule out PFO or ASD. Consider GLORIA if high clincial suspicion. Normal LV size. Moderate to severe LV systolic dysfunction with an EF of around 35 to 40%.Severe hypokinesis of the mid to apical septum, apical anterior and apical anterolateral segments and akinetic apex indicating possible LAD involvement versus Takotsubo syndrome. Difficult to comment on apical thrombus due to lack of definity. Normal RV size and function. Mild TR Moderate MAC. Mild MR Mild AV sclerosis without stenosis with mild AI. ?Patient most likely has some underlying CAD, but given multiple comorbidities and current clinical status she is not a good candidate for heart catheterization and family is aware of this and are in agreement. ? Patient's differential diagnosis includes Takotsubo versus LAD involvement given her, but given her multiple comorbidities, bedbound status, and severe contractions she is not a good candidate for heart catheterization given that she could not lay flat on the [employer] table. Should be attributed medically for now. -Echo on 04/05/2024 had the following findings: Normal left ventricular size, wall thickness. Low normal systolic function. Estimated 45-50%. RV is normal in size and systolic function. The estimated RVSP, 34 mmHg. RAP 5. Moderate MAC. Mild to moderate MR. Mild sclerosis without stenosis. Mild AI. -Findings showed significant improvement, but was on pressors and could indicate possible Takotsubo syndrome which could be possibly secondary to the sepsis Plan: ?Recommend to hold off on goal-directed medical therapy with beta-devon, Entresto as well as spironolactone as patient is still hypotensive and requiring increase of vasopressor. -can start patient in oral diuresis if BP allows and patient becomes fluid overloaded. ?Patient should also be on aspirin and statin ?No need to trend troponins 04/12/2024: Telemetry showed sinus rhythm. Patient's TSH was 20.58 as well as free T4 was 0.467 during this admission and patient is only oral thyroxine and was given additional loading dose of levothyroxine 20 mcg IV along with some hydrocortisone. Patient has been tapered off both vasopressors today and looks like the entire clinical picture was mostly secondary to severe hypothyroidism. Patient maintaining her blood pressure on her present regimen of midodrine 10 mg 3 times daily this morning during my examination. Will continue to monitor closely and the ICU for the next 24 hours and can be transferred out if hemodynamically stable and does not require pressors anymore. Keep potassium greater than 4 and magnesium greater than 2.0 at all times with avoid any kind of arrhythmias. Patient did receive digoxin but recommend to hold it for now as the patient is hypokalemic. Hemoglobin dropped to 6.9 and received transfusions and better at 7.9 right now. 4. Acute encephalopathy 5. Hypoglycemia 6. DM2 ?Patient has been taking glyburide 5 mg as well as metformin 625 mg 3 times daily which could have precipitated his patient hypoglycemia in the event that she has been having poor oral intake. ? Continue current management as per primary care team 7. Failure to thrive ?Patient may benefit from PEG tube placement as she has been having poor oral intake for the past few weeks. ? Recommend to follow GI recommendations ? Continue current management as per primary care team 8. CVA with residual right-sided deficits 9. Hyperlipidemia ? Continue current management as primary care team Management of rest of the medical conditions as per primary team and other consultants. Thank you for the consult and allowing me to participate in the care of the patient. Cardiology will continue to follow. Rao Dodson M.D. Interventional Cardiology Time Spent With Patient Time: Total time spent is greater than 50% in coordination of care (as documented) at patient's floor/unit and/or counseling patient:
[2024-04-13 13:46] LABS: Magnesium 2.1 mg/dL (1.6-2.6); Phosphorous 2.9 mg/dL (2.4-5.1)
[2024-04-13 15:38] LABS: Base Excess, Venous 8 (-3-3); O2 Saturation, Venous 81 % (96-97); PCO2, Venous 37 mmHg (36-56); PO2, Venous 41 mmHg (15-58); pH, Venous 7.54 (7.33-7.66)
[2024-04-13 15:39] LABS: Lactate (Lactic Acid) 2.3 mMol/L (0.4-2.0)
[2024-04-13 16:19] LABS: Reflex Lactate? Y
--- NOTE | 2024-04-13 17:49 | PD.RESPRO ---
Documentation for date of: 04/13/24 Subjective Subjective Interval history: 04/10:24: The patient was examined at the bedside this morning. She was still on Levophed and vasopressin drip for pressor support. Stable saturating 95 to 96% on 2 L NC. Overnight patient had fever and tachycardia, chest exam was CTAB. Labs were significant for increasing WBC to 18.4, magnesium 1.5 and Pro-Zozie 1.98. Blood and urine cultures were sent. IV antibiotics were started with vancomycin and Zosyn. Bedside ultrasound was significant for volume overload at inferior vena cava. The patient was given one-time dose of IV Lasix 40 Mg, with mild production of urine. 04/11: No acute overnight events patient is still on Levophed and vasopressin, goal is to wean down both pressor support. Patient is started on Lasix 20 Mg 3 times daily. Due to severe hypothyroidism patient will be started on loading dose of levothyroxine tomorrow, plus steroids and digoxin at 0.125 Mg per day. Closely monitor patient's fluid net negative and replete all electrolytes as needed. Repeat BMP and specifically VBG when MAP is around 65. 04/12: Overnight patient had 2.5 L of urine output and no other overnight events. Patient is still on pressor support, Levophed was off for several hours but MAP dropped below 65 and Levophed was restarted. Patient's cough is resolved and remains afebrile. Patient is saturating on room air. VBG today are stable. Will continue to closely monitor electrolytes and fluid net negative and will replete electrolytes as needed. BNP is 1035. Since patient was started on digoxin on 04/11/2024 will check digoxin levels in about 6 days after initiating therapy. 04/13: Overnight patient had 1.6 L of urine output and no other overnight events patient remains afebrile and cough has resolved. Patient is awake and can follow commands but she appears very lethargic, she is saturating on room air.. Currently patient is net negative of 2655. Patient was able to come off of pressor support mid afternoon and was producing 60 cc of urine per hour when she was off of pressor support. Based on her lactic acid of 2.3 and VBG findings of pH 7.54 CO2 37 O2 41 O2 saturation 81% when she was off of pressor the MAP goal is above 60%. If patient drops MAP below 60 then we will start Levophed. Will hold diuretics for now as patient diuresed really well and electrolytes are all repleted. Will continue to closely monitor patient's labs and will repeat BMP and x-ray tomorrow. Patient's current weight is 41.3 kg. Exam Vital Signs Temp Pulse Resp BP Pulse Ox O2 Del Method O2 Flow Rate 97.6 F 72 19 90/47 L 93 L Nasal Cannula 2 04/13/24 12:00 04/13/24 15:49 04/13/24 15:49 04/13/24 15:49 04/13/24 15:49 04/13/24 15:00 04/13/24 15:00 FiO2 2 04/10/24 09:00 Narrative Exam GENERAL: Awake, elderly thin non female, Not in acute distress, is able to follow command NEURO: alert, motor deficit in the right and upper and lower extremities HEENT: Atraumatic, Normocephalic. mucous membranes moist. Eyes open, symmetrical, & clear HEART: Faint Heart Sounds LUNGS: Clear breath sounds bilaterally ABDOMEN: soft, non-distended, non-tender, bowel sounds heard, no guarding or rebound tenderness, PEG tube in place SKIN: 2 sacral ulcers, smaller one appears to be stage 2 and larger one appears to be stage 3 EXTREMITIES: 1+ pitting edema bilaterally on UE, non pitting edema on lower extremity, pedal pulses palpated, contracted lower extremities Objective Labs 04/17/24 09:24 04/17/24 09:24 Labs: Laboratory Results - last 24 hr 04/11/24 04/12/24 04/13/24 09:12 21:47 00:36 VBG pH VBG pCO2 VBG pO2 VBG O2 Sat (Kathy) VBG Base Excess Sodium 129 L Potassium 3.0 L Chloride 90 L Carbon Dioxide 31.9 H Anion Gap 7 BUN 14 Creatinine 0.5 L Estim Creat Clear Calc 61.2 eGFR > 60 BUN/Creatinine Ratio 28 H Glucose 136 H Calculated Osmolality 261 L Lactic Acid Calcium 8.3 Phosphorus 2.5 2.3 L Magnesium 1.9 1.9 Crossmatch See Detail 04/13/24 04/13/24 04/13/24 05:22 12:58 15:30 VBG pH 7.48 7.54 VBG pCO2 42 37 VBG pO2 46 41 VBG O2 Sat (Kathy) 83 L 81 L VBG Base Excess 7 H 8 H Sodium 127 L Potassium 2.8 L Chloride 90 L Carbon Dioxide 31.5 H Anion Gap 6 L BUN 14 Creatinine 0.5 L Estim Creat Clear Calc 61.2 eGFR > 60 BUN/Creatinine Ratio 28 H Glucose 141 H Calculated Osmolality 257 L Lactic Acid 2.4 H 2.3 H Calcium 7.9 L Phosphorus 2.4 2.9 Magnesium 1.9 2.1 Crossmatch ABG Interpretation ABG results: 03/30/24 04/01/24 04/01/24 13:55 10:25 17:20 ABG pH 7.48 H 7.52 H 7.47 H ABG pCO2 34 31 L 34 ABG pO2 300 H 155 H D 36 L* D ABG HCO3 25 25 25 ABG O2 Saturation 100 H 100 H 70 L ABG Base Excess 2 3 1 VBG pH VBG pCO2 VBG pO2 VBG Base Excess 04/04/24 04/11/24 04/12/24 13:52 11:50 02:45 ABG pH ABG pCO2 ABG pO2 ABG HCO3 ABG O2 Saturation ABG Base Excess VBG pH 7.43 7.46 7.55 VBG pCO2 19 L 41 35 L VBG pO2 136 H 35 33 VBG Base Excess -10 L 5 H 8 H 04/13/24 04/13/24 12:58 15:30 ABG pH ABG pCO2 ABG pO2 ABG HCO3 ABG O2 Saturation ABG Base Excess VBG pH 7.48 7.54 VBG pCO2 42 37 VBG pO2 46 41 VBG Base Excess 7 H 8 H Quality Measures Quality Measures sepsis Current suspected stage: ruled out Possible source: unknown Blood cultures ordered: completed in ED Antibiotic ordered: Yes Advance care planning discussed with:: child Assessment & Plan Assessment Current Active Medications: Generic Name Dose Route Start Last Admin Trade Name Freq PRN Reason Stop Dose Admin Acetaminophen 650 mg 03/30/24 16:17 Acetaminophen 325 Mg Tablet PO 04/29/24 16:16 Q6H PRN Fever >101.5 Acetaminophen 650 mg 03/30/24 16:17 04/13/24 13:37 Acetaminophen 325 Mg Tablet PO 04/29/24 16:16 650 mg Q6H PRN Administration PAIN SCALE 1-3 (mild Aspirin 81 mg 04/06/24 07:35 04/13/24 09:16 Aspirin 81 Mg Chew NG 05/01/24 18:44 81 mg QDAY ROGER Administration Atorvastatin Calcium 80 mg 04/06/24 07:35 04/12/24 21:25 Atorvastatin Calcium 20 Mg Tablet NG 05/01/24 20:59 80 mg HS ROGER Administration Bisacodyl 10 mg 03/30/24 19:00 04/13/24 10:43 Bisacodyl 10 Mg Supp MT 04/29/24 18:59 Not Given QDAY ROGER Protocol Calcium Carbonate 600 mg 04/03/24 09:45 04/13/24 09:17 Calcium Carbonate 600 Mg Tablet NG 05/03/24 09:44 600 mg QDAY ROGER Administration Dextrose 25 ml 03/30/24 16:22 04/01/24 04:58 Dextrose 50%-Water Inj 50 Ml Syringe IV 04/29/24 16:21 25 ml Q15MIN PRN Administration BG 50-70 responsive npo pt Dextrose 50 ml 03/30/24 16:22 Dextrose 50%-Water Inj 50 Ml Syringe IV 04/29/24 16:21 Q15MIN PRN BG <50 OR BG <70 & pt unresponsive Digoxin 0.125 mg 04/11/24 15:45 04/13/24 09:20 Digoxin Inj 0.25 Mg/Ml Amp 2 Ml IVP 05/11/24 15:44 0.125 mg QDAY ROGER Administration Enoxaparin Sodium 40 mg 04/04/24 09:00 04/13/24 09:16 Enoxaparin Sod Inj 40 Mg/0.4 Ml Syringe SC 04/18/24 08:59 40 mg QDAY ROGER Administration Ferrous Sulfate 300 mg 04/13/24 08:00 04/13/24 09:16 Ferrous Sulfate 300 Mg/5 Ml Udc PO 05/13/24 07:59 300 mg WBR ROGER Administration Folic Acid 1 mg 03/30/24 16:45 04/13/24 09:17 Folic Acid Inj 1 Mg/0.2 Ml IVP 04/29/24 16:44 1 mg QDAY ROGER Administration Furosemide 20 mg 04/12/24 18:00 04/13/24 05:37 Furosemide Inj 10 Mg/Ml Vial 2 Ml IVP 05/12/24 17:59 20 mg BIDD ROGER Administration Glucagon 1 mg 03/30/24 16:22 Glucagon Inj 1 Mg Vial IM Q15MIN PRN BG <70, and no IV access Hydrocortisone Sodium Succinate 100 mg 04/13/24 14:00 04/13/24 13:38 Hydrocortisone Sod Succ Inj 100 Mg Vial IV 05/13/24 13:59 100 mg Q8HR ROGER Administration Norepinephrine/Dextrose 8 mg in 250 mls @ 3.956 mls/hr 04/07/24 14:32 04/13/24 11:16 Levophed In D5w 8mg/250ml IV 05/02/24 20:06 0 mcg/kg/min .Q24H PRN 0 mls/hr PER protocol Titration Protocol 0.05 MCG/KG/MIN Piperacillin/Tazobactam/Dextrose 3.375 gm in 50 mls @ 12.5 mls/hr 04/10/24 06:00 04/13/24 13:36 Zosyn IV 04/17/24 05:59 12.5 mls/hr Q8HR ROGER Administration Vasopressin/Sodium Chloride 20 unit in 100 mls @ 9 mls/hr 04/10/24 01:13 04/13/24 14:15 Vasostrict/Ns Ivpb IV 05/10/24 01:12 0 unit/min .Q11H7M PRN 0 mls/hr PER PROTOCOL Titration Protocol 0.03 UNIT/MIN Albumin Human 25 gm in 100 mls @ 100 mls/hr 04/12/24 10:27 04/13/24 09:12 Albuminar-25 Ivpb IV 04/15/24 10:26 100 mls/hr QDAY ROGER Administration Albumin Human 12.5 gm in 50 mls @ 50 mls/hr 04/13/24 17:43 Albuminar-25 Ivpb IV 04/13/24 18:42 X1 ONE Insulin Human Lispro 0 unit 03/30/24 17:00 04/13/24 12:05 Insulin Lispro (Admelog) 1 Unit/0.01 Ml Unit SC 04/29/24 16:59 1 unit Q6HR ROGER Administration Protocol Levothyroxine Sodium 75 mcg 04/13/24 09:00 04/13/24 09:19 Levothyroxine Inj 100 Mcg Vial IV 05/13/24 08:59 75 mcg DAILY ROGER Administration Magnesium Oxide 400 mg 04/10/24 09:00 04/13/24 09:17 Magnesium Oxide 400 Mg Tablet GT 05/11/24 15:00 400 mg BID ROGER Administration Midodrine 10 mg 04/03/24 14:00 04/13/24 13:37 Midodrine 5 Mg Tablet NG 05/03/24 13:59 10 mg TID ROGER Administration Multivitamins/Minerals 15 ml 04/05/24 16:45 04/13/24 09:16 Multivitamin 15 Ml Udc GT 05/05/24 16:44 15 ml QDAY ROGER Administration Ondansetron HCl 4 mg 03/30/24 16:17 Ondansetron Inj 2 Mg/Ml Inj 2 Ml IV 04/29/24 16:16 Q6H PRN NAUSEA OR VOMITING Protocol Pantoprazole Sodium 40 mg 03/30/24 16:30 04/13/24 09:10 Pantoprazole Inj 40 Mg Vial IVP 04/29/24 16:29 40 mg QDAY ROGER Administration Polyethylene Glycol 17 gm 04/10/24 09:00 04/13/24 09:17 Polyethylene Glycol 17 Gm Packet PO 05/10/24 08:59 17 gm QDAY ROGER Administration Sennosides 8.8 mg 04/06/24 17:33 04/07/24 08:03 Sennosides Syrup 8.8 Mg/5 Ml Udc NG 05/06/24 17:32 8.8 mg QDAY PRN Administration CONSTIPATION Protocol Thiamine HCl 100 mg 03/30/24 16:45 04/13/24 09:18 Thiamine Inj 100 Mg/Ml Vial 2 Ml IVP 04/29/24 16:44 100 mg QDAY ROGER Administration Plan Ms. 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 Per chart review and patient's daughter at bedside states patient have been declining physical activity for the past 2 months. She used to be able to walk herself to the restroom, feed herself, and walk around using walker and be able to communicate. But she has become increasingly depressed and bedbound for the last 1 week she has been having urinary incontinence and decreased oral intake. Patient was found unresponsive for which the family called ambulance. In the ED her blood glucose was found to be 13 she received D10 and her blood glucose improved and as well as her mentation. Patient was admitted to the hospital for possible PEG tube placement and treatment of bilateral pneumonia. On 04/02/2024 patient had a rapid response called for blood pressure of 75/44 maintaining MAP below 65 patient was given 1L bolus of normal saline without improvement of blood pressure and MAP; patient was upgraded to the ICU and Levophed was started. Neuro #History of CVA - Pt has a stroke in 2021 with residual deficit on the right side and global aphasia #Acute metabolic encephalopathy secondary to hypoglycemia -resolved -On admission patient's was altered with blood glucose was 13 and patient received D10 and her mentation improved to baseline -Patient's daughter have reported that for the past 2 months patient has become increasingly less physically active Cardio #Shock- - septic shock? 05/23 to staph bacteremia has resolved 04/08 and then patient underwent PEG tube placement procedure requiring versed and became hypotensive and levophed was restarted. -on admission pts. BC on 03/30 showed staph bacteremia in 1 of the 2 cultures, Pt has been on antibiotics -started levophed started on 04/03- -midodrine 10mg TID -Dobutamine drip started on 04/04 and D/c'd on 04/05 -vasopressin started on 04/04 and titrating it down as able -repeat echo04/05- EF 45-50% and mild to moderate MR -Patient is on Levophed at 0.23 and vasopressin goal is to wean her off as tolerating maintaining MAP around 65 #Newly diagnosed CHF - improving DDx- takatsubo cardiomyopathy -Pt. may have developed takotsubo cardiomyopathy. Per Pt.'s daughter Tamia her (their father) sent her from [place] recently because he was unable to take care of her. And he does not communicate with her which has caused the Pt. to become increasingly withdrawn and poor oral intake. Patient also lost her grandson that she raised approximately a year ago. -EF 35-40 on echo 03/31 --> repeat echo 04/05 EF 45-50% and mild to moderate MR -In light of shock, will hold guideline directed medical therapy and will resume when able -Will hold Lasix for now as patient is well diuresed, will continue to monitor to decide if Lasix needs to be resumed -Will check digoxin (started 04/11) levels 6 days after initiating therapy (04/16) -Continue to closely monitor ins and outs and calculate net negative volume daily #Hx HTN - home meds on hold # Hx. HLD - resumed home atorvastatin #Troponinemia- resolved -on admission ? peaked at 1.033, without ST or T wave changes on EKG Pul # Aspiration pneumonia likely in the setting of dysphagia -Repeat chest x-ray showed worsening diffuse significant bilateral pneumonia -on admission Pts. WBC 17.1 -repeat chest x-ray showed worsening bilateral pneumonia, and patient has developed a productive cough - patient is on sufficient coverage with antibiotics -D/c Azithro 04/02-04/07 -Patient is on Rocephin 04/02- 04/08 -D/C vancomycin due to MRSA negative -Patient is started on Zosyn on 04/10- (continue for 7 days course for aspiration pneumonia) ID #Pneumonia #Bacteremia #leukocytosis -Blood cultures on 03/30/2024-grew Staph aureus on 1 of 2 -Blood cultures since then, urine cultures and MRSA - negative -Repeat chest x-ray 04/06/2024 showed worsening pneumonia Pts is found to have leukocytosis likely reactive in the setting of procedure. Pt remains afebrile, will continue to monitor closely and if she develops a fever with increasing WBC, then will consider BC at that time. -On antibiotics Zosyn -repeat blood cultures from 04/05 prelim no growth GI #Severe Malnutrition -Failure to thrive- patient's BMI is <22 and age >70 -Per patient's daughter, patient has poor oral intake and for 2 months was hiding food under the couch and bed and they often have to feed her with a syringe -likely secondary to poor oral intake -Per Finishing Manager recommendations- Glucerna 1.2 at 30 ml/hr, Thiamine 100mg/day for 7 days, Multivitamins ordered # PEG tube - resume tube feeds at 30cc with no water flush #Hypoalbuminemia - likely secondary to nutritional deficiency -Will continue to treat underlying cause by giving adequate nutrition Endo #History of type 2 diabetes -Hemoglobin A1c on 03/31 is 6.1, blood glucose 141 -Insulin sliding scale ordered #History of hypothyroidism #Severe hypothyroidism -TSH 20.58, free T4 0.67 during this admission -Continue levothyroxine 75 mcg IV daily Renal # Hypokalemia # Hypomagnesemia # Hypovolemic hyponatremia -Likely in the setting of diuresing -Repleted 80 mEq of potassium, repleted magnesium, Heme #Acute anemia - stable -Hemoglobin 8.8 and hematocrit 25.1 -no signs of active bleeding -will continue to monitor -will transfuse again with pRBCs if Hgb <7 DVT prophylaxis-Lovenox Skin #Sacral ulcer -Patient has 2 ulcers in the sacrum -Smaller 1 appears to be stage II and the bigger one appears to be stage III -Frequent pressure redistribution -Wound care is ordered Disposition: ICU for pressor support DVT Prophylaxis: enoxaparin 40mg Qdaily GI Prophylaxis: Pantoprozol-40 IV Qday Diet: PEG tube feedings resumed glucerna 1.2 at 30ml/hr, Code status: DNR/DNI Assessment and plan discussed with my attending physician Dr. Arthur Zaman ([id number])- Internal medicine resident Attending Provider Attestation/Addendum Patient seen and examined with above resident, Ryan Zaman MD. I agree with the findings, assessment, and plan of care as documented except for any differences below. Patient responding to diuresis well we will plan to recheck BMP in the morning. VBG shows O2 saturation of 81% off of vasopressors with MAP goal greater than 60 suggestive of adequate cardiac output for O2 demand. Patient responded well to digoxin as well as addition of IV levothyroxine. No need for transfusion with stable hemoglobin. Patient with hypoalbuminemia being addressed with ongoing tube feeds and free water flushes that have become more conservative given her fluid overload. Electrolyte replacement being addressed hypokalemia from loop diuretic use and refeeding syndrome given her severe protein calorie malnutrition. Prognosis remains overall guarded given her chronic debility from CVA though she is continuing to make good progress with our ongoing intervention. Patient will complete 7-day course of Zosyn as the primary precipitating for her septic shock that led to component of Takotsubo cardiomyopathy and cardiogenic shock which is now resolved as evidenced by tolerance of lower BP and laboratory data as per above. Patient's daughter was updated at bedside. Total critical care time: I personally spent 35 minutes for review of physiologic parameters, directing plan of care throughout the day, coordination of care with other subspecialists, and counseling patient's family at bedside. This is exclusive of time spent teaching housestaff or performing any separate billable procedures. Patient continues to require critical care services for septic/cardiogenic shock and severe hypothyroidism in the setting of aspiration pneumonia from dysphagia with remote history of CVA. Patient remains at high risk for further morbidity and mortality warranting ongoing close monitoring in the intensive care unit.
[2024-04-13] MEDS: ALBUMIN HUMAN 25% IVPB 12.5 GM/50 ML BTL IV (18:14)
[2024-04-13 18:27] LABS: Lactate (Lactic Acid) 1.5 mMol/L (0.4-2.0)
[2024-04-13 18:35] LABS: Reflex Lactate? Y
[2024-04-13 18:44] LABS: Anion Gap 6 (7-16); BUN/Creatinine Ratio 28 Ratio (12-20); Blood Urea Nitrogen 14 mg/dL (9-23); Carbon Dioxide 28.9 mMol/L (20.0-31.0); Chloride 92 mMol/L (98-107); Creatinine (Component) 0.5 mg/dL (0.6-1.3); Estimated Creatinine Clearance 62.2 mL/min (>60); Glucose 138 mg/dL (74-106); Osmolality,Calculated 257 (275-295); Potassium 3.9 mMol/L (3.4-5.1); Sodium 127 mMol/L (136-145); eGFR > 60 See Note
[2024-04-13 21:08] LABS: Lactic Acid, 3 HR 1.6 mMol/L (0.4-2.0)
[2024-04-13] MEDS: ATORVASTATIN CALCIUM 20 MG TABLET 80 MG NG (21:40)
[2024-04-14] VITALS (132 sets, daily range): BP systolic 66–134; BP diastolic 34–86; PULSE 54–105; RESP 0–37; TEMP 36.2–36.6; O2SAT 86–100; BMI 19.2
[2024-04-14] MEDS: INSULIN LISPRO (AdmeLOG) 1 UNIT/0.01 ML UNIT SC ×5 (01:00→23:55)
[2024-04-14] MEDS: Norepinephrine/D5W 8mg/250ml 8 MG/250 ML BAG 4.538 MG IV (03:05)
--- NOTE | 2024-04-14 05:00 | XR_ITS ---
Examination: AP chest single view Technique one AP portable semiupright chest single view Exam date and time: April 14, 2024 0542 hrs. Comparison April 12, 2024 Indications: Difficulty breathing this week, extensive pneumonia on chest imaging this week. Findings: Extensive bilateral pneumonia, worse on the left lung compared with April 12, 2024 Right internal jugular central line tip right atrium Cardiac contour is obscured by the pneumonia in the left lung Significant osteopenia Impression: Bilateral pneumonia, worse and severe in the left lung
[2024-04-14 06:13] LABS: Base Excess, Venous 10 (-3-3); O2 Saturation, Venous 67 % (96-97); PCO2, Venous 37 mmHg (36-56); PO2, Venous 32 mmHg (15-58); pH, Venous 7.55 (7.33-7.66)
[2024-04-14] MEDS: MIDODRINE 5 MG TABLET 10 MG NG ×3 (06:13→22:50)
[2024-04-14] MEDS: PIPER/TAZO 3.375 GM 3.375 GM/50 ML BAG IV ×3 (06:13→22:50)
[2024-04-14] MEDS: HYDROCORTISONE SOD SUCC INJ 100 MG VIAL IV ×3 (06:13→22:49)
[2024-04-14 06:44] LABS: Anion Gap 7 (7-16); BUN/Creatinine Ratio 28 Ratio (12-20); Blood Urea Nitrogen 14 mg/dL (9-23); Carbon Dioxide 30.3 mMol/L (20.0-31.0); Chloride 94 mMol/L (98-107); Creatinine (Component) 0.5 mg/dL (0.6-1.3); Estimated Creatinine Clearance 62.2 mL/min (>60); Glucose 184 mg/dL (74-106); Potassium 3.4 mMol/L (3.4-5.1); Sodium 131 mMol/L (136-145); eGFR > 60 See Note
[2024-04-14 06:45] LABS: Calcium 8.1 mg/dL (8.3-10.6); Osmolality,Calculated 268 (275-295)
[2024-04-14 06:54] LABS: B-Type Natriuretic Peptide 1492 pg/mL (0-100)
[2024-04-14] MEDS: MULTIVITAMIN 15 ML UDC GT (08:38)
[2024-04-14] MEDS: LEVOTHYROXINE INJ 100 mCg VIAL 75 MCG IV (08:38)
[2024-04-14] MEDS: ALBUMIN HUMAN 25% IVPB 25 GM/100 ML BTL IV (08:41)
[2024-04-14] MEDS: MAGNESIUM OXIDE 400 MG TABLET GT ×2 (08:41→22:51)
[2024-04-14] MEDS: CALCIUM CARBONATE 600 MG TABLET NG (08:41)
[2024-04-14] MEDS: ENOXAPARIN SOD INJ 40 MG/0.4 ML SYRINGE SC (08:42)
[2024-04-14] MEDS: Ferrous Sulfate 300 MG/5 ML UDC PO (08:42)
[2024-04-14] MEDS: ASPIRIN 81 MG CHEW NG (08:42)
[2024-04-14] MEDS: PANTOPRAZOLE INJ 40 MG VIAL IVP (08:43)
[2024-04-14] MEDS: FOLIC ACID INJ 1 MG/0.2 ML IVP (08:43)
[2024-04-14] MEDS: THIAMINE INJ 100 MG/ML VIAL 2 ML IVP (08:45)
[2024-04-14] MEDS: DIGOXIN INJ 0.25 MG/ML AMP 2 ML 0.125 MG IVP (08:51)
[2024-04-14] MEDS: POLYETHYLENE GLYCOL 17 GM PACKET PO (08:51)
[2024-04-14] MEDS: ACETAMINOPHEN 325 MG TABLET 650 MG PO (10:40)
[2024-04-14] MEDS: FUROSEMIDE INJ 10 MG/ML 4ML VIAL 20 MG IVP (10:41)
[2024-04-14] MEDS: DOPamine/D5w 400 MG IVPB 400 MG/250 ML BAG 7.819 MG IV (10:42)
--- NOTE | 2024-04-14 13:59 | ESPR_ITS ---
Documentation for date of: 04/14/24 Subjective Subjective Interval history: Enteral feeding rate via PEG tube with a 30 cc an hour Gastric residue is an issue Spoke with the attending RN and start the patient on Reglan 5 mg IV push every 6 hours to improve the gastric motility and hopefully the gastric residue would be less Exam Vital Signs Temp Pulse Resp BP Pulse Ox O2 Del Method O2 Flow Rate 97.8 F 90 17 109/71 93 L Nasal Cannula 2 04/14/24 12:00 04/14/24 13:55 04/14/24 13:15 04/14/24 13:55 04/14/24 13:15 04/14/24 13:15 04/14/24 13:15 FiO2 2 04/10/24 09:00 Objective Labs 04/12/24 02:45 04/14/24 05:45 Labs: Laboratory Results - last 24 hr 04/13/24 04/13/24 04/13/24 15:30 18:07 20:55 VBG pH 7.54 VBG pCO2 37 VBG pO2 41 VBG O2 Sat (Kathy) 81 L VBG Base Excess 8 H Sodium 127 L Potassium 3.9 D Chloride 92 L Carbon Dioxide 28.9 Anion Gap 6 L BUN 14 Creatinine 0.5 L Estim Creat Clear Calc 62.2 eGFR > 60 BUN/Creatinine Ratio 28 H Glucose 138 H Calculated Osmolality 257 L Lactic Acid 2.3 H 1.5 1.6 Calcium 8.0 L Magnesium 2.0 B-Natriuretic Peptide 04/14/24 05:45 VBG pH 7.55 VBG pCO2 37 VBG pO2 32 VBG O2 Sat (Kathy) 67 L VBG Base Excess 10 H Sodium 131 L Potassium 3.4 D Chloride 94 L Carbon Dioxide 30.3 Anion Gap 7 BUN 14 Creatinine 0.5 L Estim Creat Clear Calc 62.2 eGFR > 60 BUN/Creatinine Ratio 28 H Glucose 184 H Calculated Osmolality 268 L Lactic Acid Calcium 8.1 L Magnesium B-Natriuretic Peptide 1492 H* Impressions Impression: # Failure to thrive # Gastric residue is an issue add Reglan 5 mg IV push Q6 for the enteral feeding ABG Interpretation ABG results: 03/30/24 04/01/24 04/01/24 13:55 10:25 17:20 ABG pH 7.48 H 7.52 H 7.47 H ABG pCO2 34 31 L 34 ABG pO2 300 H 155 H D 36 L* D ABG HCO3 25 25 25 ABG O2 Saturation 100 H 100 H 70 L ABG Base Excess 2 3 1 VBG pH VBG pCO2 VBG pO2 VBG Base Excess 04/04/24 04/11/24 04/12/24 13:52 11:50 02:45 ABG pH ABG pCO2 ABG pO2 ABG HCO3 ABG O2 Saturation ABG Base Excess VBG pH 7.43 7.46 7.55 VBG pCO2 19 L 41 35 L VBG pO2 136 H 35 33 VBG Base Excess -10 L 5 H 8 H 04/13/24 04/13/24 04/14/24 12:58 15:30 05:45 ABG pH ABG pCO2 ABG pO2 ABG HCO3 ABG O2 Saturation ABG Base Excess VBG pH 7.48 7.54 7.55 VBG pCO2 42 37 37 VBG pO2 46 41 32 VBG Base Excess 7 H 8 H 10 H Assessment & Plan A&P Narrative 79-year-old female with past medical history of hypertension, hyperlipidemia, 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 1. Acute decompensated systolic heart failure (EF 45 to 50%) 2. NSTEMI 3. Essential hypertension ?Given patient's elevated troponins which peaked at 1.033 and down trended this is most likely NSTEMI type II likely demand ischemia ?Given patient is a poor candidate for heart catheterization at this time due to other comorbidities we will treat medically for now ?Patient's blood pressure has been under control during her hospital stay. ?Echo done on 03/31/2024 has had the following findings: Negative bubble study. TTE is suboptimal to rule out PFO or ASD. Consider GLORIA if high clincial suspicion. Normal LV size. Moderate to severe LV systolic dysfunction with an EF of around 35 to 40%.Severe hypokinesis of the mid to apical septum, apical anterior and apical anterolateral segments and akinetic apex indicating possible LAD involvement versus Takotsubo syndrome. Difficult to comment on apical thrombus due to lack of definity. Normal RV size and function. Mild TR Moderate MAC. Mild MR Mild AV sclerosis without stenosis with mild AI. ?Patient most likely has some underlying CAD, but given multiple comorbidities and current clinical status she is not a good candidate for heart catheterization and family is aware of this and are in agreement. ? Patient's differential diagnosis includes Takotsubo versus LAD involvement given her, but given her multiple comorbidities, bedbound status, and severe contractions she is not a good candidate for heart catheterization given that she could not lay flat on the [employer] table. Should be attributed medically for now. -Echo on 04/05/2024 had the following findings: Normal left ventricular size, wall thickness. Low normal systolic function. Estimated 45-50%. RV is normal in size and systolic function. The estimated RVSP, 34 mmHg. RAP 5. Moderate MAC. Mild to moderate MR. Mild sclerosis without stenosis. Mild AI. -Findings showed significant improvement, but was on pressors and could indicate possible Takotsubo syndrome which could be possibly secondary to the sepsis Plan: ?Recommend to hold off on goal-directed medical therapy with beta-devon, Entresto as well as spironolactone as patient is still hypotensive and requiring increase of vasopressor. -can start patient in oral diuresis if BP allows and patient becomes fluid overloaded. ?Patient should also be on aspirin and statin ?No need to trend troponins 04/13/2024: Patient's TSH was 20.58 as well as free T4 was 0.467 during this admission and patient is only oral thyroxine and was given additional loading dose of levothyroxine 20 mcg IV along with some hydrocortisone. Patient started on treatment for hypothyroidism based on her clinical picture and was tapered off vasopressors yesterday Patient developed fever and some cough and is on IV antibiotics and started on pressors again and is only on vasopressin during my visit today. Heart rate is well-controlled and patient still continues to be in atrial fibrillation but rate well-controlled. Hemoglobin better after the transfusions. Patient did receive digoxin but is on hold as the patient is hypokalemic. Telemetry shows intermittent A-fib Continue to monitor telemetry closely Continue midodrine 10 mg 3 times a day. Continue to monitor in ICU for another 24 hours before she can be transferred out if hemodynamically stable and does not require pressors anymore 4. Acute encephalopathy 5. Hypoglycemia 6. DM2 ?Patient has been taking glyburide 5 mg as well as metformin 625 mg 3 times daily which could have precipitated his patient hypoglycemia in the event that she has been having poor oral intake. ? Continue current management as per primary care team 7. Failure to thrive ?Patient may benefit from PEG tube placement as she has been having poor oral intake for the past few weeks. ? Recommend to follow GI recommendations ? Continue current management as per primary care team 8. CVA with residual right-sided deficits 9. Hyperlipidemia ? Continue current management as primary care team Management of rest of the medical conditions as per primary team and other consultants. Thank you for the consult and allowing me to participate in the care of the patient. Cardiology will continue to follow. Rao Dodson M.D. Interventional Cardiology Time Spent With Patient Time: Total time spent is greater than 50% in coordination of care (as documented) at patient's floor/unit and/or counseling patient:
[2024-04-14 14:06] LABS: Basophils % (Auto) 0 % (0-2.5); Eosinophils % (Auto) 0 % (0-10); Hematocrit 28.8 % (36.0-46.0); Immature Granulocytes % (Auto) 0 % (0-0); Immature Granulocytes Auto 0.03 Thou/mm3 (0.00-0.00); Lymphocytes # (Auto) 0.4 Thou/mm3 (1.0-4.8); Lymphocytes % (Auto) 4 % (10-50); Mean Corpuscular HGB Conc 34.7 g/dl (31.0-37.0); Mean Corpuscular Hemoglobin 30.1 pg (25.0-35.0); Mean Corpuscular Volume 87 fL (80-100); Monocytes # (Auto) 0.2 Thou/mm3 (0.0-0.8); Monocytes % (Auto) 2 % (0-12); Neutrophils # (Auto) 9.4 Thou/mm3 (1.8-7.7); Neutrophils % (Auto) 94 % (37-80); Nucleated Red Blood Cell % 0 /100 WBC (0); Platelet Count 154 Thou/mm3 (140-440); RDW Standard Deviation 46.3 fL (36.4-46.3); Red Blood Count 3.32 Miln/mm3 (4.00-5.20)
[2024-04-14 14:32] LABS: Anion Gap 8 (7-16); BUN/Creatinine Ratio 30 Ratio (12-20); Blood Urea Nitrogen 15 mg/dL (9-23); Calcium 8.7 mg/dL (8.3-10.6); Carbon Dioxide 32.8 mMol/L (20.0-31.0); Chloride 96 mMol/L (98-107); Creatinine (Component) 0.5 mg/dL (0.6-1.3); Estimated Creatinine Clearance 56.5 mL/min (>60); Glucose 176 mg/dL (74-106); Osmolality,Calculated 278 (275-295); Phosphorous 2.5 mg/dL (2.4-5.1); Sodium 137 mMol/L (136-145); eGFR > 60 See Note
[2024-04-14 14:34] LABS: Potassium 2.5 mMol/L (3.4-5.1)
[2024-04-14] MEDS: POTASSIUM CHLORIDE 10% 20 MEQ/15 ML UDC 40 MEQ GT ×3 (14:43→22:49)
[2024-04-14] MEDS: NAPH,KPH MBDB 1 PACKET (1.5 GM) PO (16:54)
--- NOTE | 2024-04-14 16:59 | PD.RESPRO ---
Documentation for date of: 04/14/24 Subjective Subjective Interval history: 04/10:24: The patient was examined at the bedside this morning. She was still on Levophed and vasopressin drip for pressor support. Stable saturating 95 to 96% on 2 L NC. Overnight patient had fever and tachycardia, chest exam was CTAB. Labs were significant for increasing WBC to 18.4, magnesium 1.5 and Pro-Ozzie 1.98. Blood and urine cultures were sent. IV antibiotics were started with vancomycin and Zosyn. Bedside ultrasound was significant for volume overload at inferior vena cava. The patient was given one-time dose of IV Lasix 40 Mg, with mild production of urine. 04/11: No acute overnight events patient is still on Levophed and vasopressin, goal is to wean down both pressor support. Patient is started on Lasix 20 Mg 3 times daily. Due to severe hypothyroidism patient will be started on loading dose of levothyroxine tomorrow, plus steroids and digoxin at 0.125 Mg per day. Closely monitor patient's fluid net negative and replete all electrolytes as needed. Repeat BMP and specifically VBG when MAP is around 65. 04/12: Overnight patient had 2.5 L of urine output and no other overnight events. Patient is still on pressor support, Levophed was off for several hours but MAP dropped below 65 and Levophed was restarted. Patient's cough is resolved and remains afebrile. Patient is saturating on room air. VBG today are stable. Will continue to closely monitor electrolytes and fluid net negative and will replete electrolytes as needed. BNP is 1035. Since patient was started on digoxin on 04/11/2024 will check digoxin levels in about 6 days after initiating therapy. 04/13: Overnight patient had 1.6 L of urine output and no other overnight events patient remains afebrile and cough has resolved. Patient is awake and can follow commands but she appears very lethargic, she is saturating on room air.. Currently patient is net negative of 2655. Patient was able to come off of pressor support mid afternoon and was producing 60 cc of urine per hour when she was off of pressor support. Based on her lactic acid of 2.3 and VBG findings of pH 7.54 CO2 37 O2 41 O2 saturation 81% when she was off of pressor the MAP goal is above 60%. If patient drops MAP below 60 then we will start Levophed. Will hold diuretics for now as patient diuresed really well and electrolytes are all repleted. Will continue to closely monitor patient's labs and will repeat BMP and x-ray tomorrow. Patient's current weight is 41.3 kg. 04/13: overnight pt had 1.1 L of urine output and large bowel movement. Due to MAP in the 40's levophed was started by the overnigt team. This morning because Pt. didn't receive lasix her urine output decreased and Pt. was switched from levophed to dopamine. We are using dopamine renal perfusion. Lasix BID is resumed. Pts VBG is stable and lactic acid down trended to 1.6 and BNP is 1492. Pts. weight today is 41.7. will closely monitor eletrolytes and replete as needed. Pt developed a productive cough overnigh and this morning repeat chest xray show large pleral effusion on the left lung causing hydrothorax. Will have to discuss with family possible thoracenthesis. Pt may need LTACH placement as pt. may need to be on either levophed or dopamine drip to maintain kidney perfusion. Exam Vital Signs Temp Pulse Resp BP Pulse Ox O2 Del Method O2 Flow Rate 97.8 F 77 14 121/59 L 97 Nasal Cannula 2 04/14/24 12:00 04/14/24 15:00 04/14/24 15:00 04/14/24 15:00 04/14/24 15:00 04/14/24 15:00 04/14/24 15:00 FiO2 2 04/10/24 09:00 Narrative Exam GENERAL: Awake, elderly thin non female, Not in acute distress, is able to follow command NEURO: alert, motor deficit in the right and upper and lower extremities HEENT: Atraumatic, Normocephalic. mucous membranes moist. Eyes open, symmetrical, & clear HEART: Faint Heart Sounds LUNGS: Clear breath sounds bilaterally ABDOMEN: soft, non-distended, non-tender, bowel sounds heard, no guarding or rebound tenderness, PEG tube in place SKIN: 2 sacral ulcers, smaller one appears to be stage 2 and larger one appears to be stage 3 EXTREMITIES: 1+ pitting edema bilaterally on UE, non pitting edema on lower extremity, pedal pulses palpated, contracted lower extremities Objective Labs 04/17/24 09:24 04/17/24 09:24 Labs: Laboratory Results - last 24 hr 04/13/24 04/13/24 04/14/24 18:07 20:55 05:45 WBC RBC Hgb Hct MCV MCH MCHC RDW Std Deviation Plt Count Neut % (Auto) Lymph % (Auto) [place] % (Auto) Eos % (Auto) Baso % (Auto) Neut # (Auto) Lymph # (Auto) [place] # (Auto) Eos # (Auto) Baso # (Auto) Immature Gran # (Auto) Absolute Nucleated RBC Immature Gran % Nucleated RBC % VBG pH 7.55 VBG pCO2 37 VBG pO2 32 VBG O2 Sat (Kathy) 67 L VBG Base Excess 10 H Sodium 127 L 131 L Potassium 3.9 D 3.4 D Chloride 92 L 94 L Carbon Dioxide 28.9 30.3 Anion Gap 6 L 7 BUN 14 14 Creatinine 0.5 L 0.5 L Estim Creat Clear Calc 62.2 62.2 eGFR > 60 > 60 BUN/Creatinine Ratio 28 H 28 H Glucose 138 H 184 H Calculated Osmolality 257 L 268 L Lactic Acid 1.5 1.6 Calcium 8.0 L 8.1 L Phosphorus Magnesium 2.0 B-Natriuretic Peptide 1492 H* 04/14/24 13:51 WBC 10.0 D RBC 3.32 L Hgb 10.0 L Hct 28.8 L MCV 87 MCH 30.1 MCHC 34.7 RDW Std Deviation 46.3 Plt Count 154 D Neut % (Auto) 94 H Lymph % (Auto) 4 L [place] % (Auto) 2 Eos % (Auto) 0 Baso % (Auto) 0 Neut # (Auto) 9.4 H Lymph # (Auto) 0.4 L [place] # (Auto) 0.2 Eos # (Auto) 0.0 Baso # (Auto) 0.0 Immature Gran # (Auto) 0.03 H Absolute Nucleated RBC 0.00 Immature Gran % 0 Nucleated RBC % 0 VBG pH VBG pCO2 VBG pO2 VBG O2 Sat (Kathy) VBG Base Excess Sodium 137 Potassium 2.5 L* D Chloride 96 L Carbon Dioxide 32.8 H Anion Gap 8 BUN 15 Creatinine 0.5 L Estim Creat Clear Calc 56.5 L eGFR > 60 BUN/Creatinine Ratio 30 H Glucose 176 H Calculated Osmolality 278 Lactic Acid Calcium 8.7 Phosphorus 2.5 Magnesium 2.0 B-Natriuretic Peptide ABG Interpretation ABG results: 03/30/24 04/01/24 04/01/24 13:55 10:25 17:20 ABG pH 7.48 H 7.52 H 7.47 H ABG pCO2 34 31 L 34 ABG pO2 300 H 155 H D 36 L* D ABG HCO3 25 25 25 ABG O2 Saturation 100 H 100 H 70 L ABG Base Excess 2 3 1 VBG pH VBG pCO2 VBG pO2 VBG Base Excess 04/04/24 04/11/24 04/12/24 13:52 11:50 02:45 ABG pH ABG pCO2 ABG pO2 ABG HCO3 ABG O2 Saturation ABG Base Excess VBG pH 7.43 7.46 7.55 VBG pCO2 19 L 41 35 L VBG pO2 136 H 35 33 VBG Base Excess -10 L 5 H 8 H 04/13/24 04/13/24 04/14/24 12:58 15:30 05:45 ABG pH ABG pCO2 ABG pO2 ABG HCO3 ABG O2 Saturation ABG Base Excess VBG pH 7.48 7.54 7.55 VBG pCO2 42 37 37 VBG pO2 46 41 32 VBG Base Excess 7 H 8 H 10 H Quality Measures Quality Measures sepsis Current suspected stage: ruled out Possible source: unknown Blood cultures ordered: completed in ED Antibiotic ordered: Yes Advance care planning discussed with:: child Assessment & Plan Assessment Current Active Medications: Generic Name Dose Route Start Last Admin Trade Name Freq PRN Reason Stop Dose Admin Acetaminophen 650 mg 03/30/24 16:17 Acetaminophen 325 Mg Tablet PO 04/29/24 16:16 Q6H PRN Fever >101.5 Acetaminophen 650 mg 03/30/24 16:17 04/14/24 10:40 Acetaminophen 325 Mg Tablet PO 04/29/24 16:16 650 mg Q6H PRN Administration PAIN SCALE 1-3 (mild Aspirin 81 mg 04/06/24 07:35 04/14/24 08:42 Aspirin 81 Mg Chew NG 05/01/24 18:44 81 mg QDAY ROGER Administration Atorvastatin Calcium 80 mg 04/06/24 07:35 04/13/24 21:40 Atorvastatin Calcium 20 Mg Tablet NG 05/01/24 20:59 80 mg HS ROGER Administration Calcium Carbonate 600 mg 04/03/24 09:45 04/14/24 08:41 Calcium Carbonate 600 Mg Tablet NG 05/03/24 09:44 600 mg QDAY ROGER Administration Dextrose 25 ml 03/30/24 16:22 04/01/24 04:58 Dextrose 50%-Water Inj 50 Ml Syringe IV 04/29/24 16:21 25 ml Q15MIN PRN Administration BG 50-70 responsive npo pt Dextrose 50 ml 03/30/24 16:22 Dextrose 50%-Water Inj 50 Ml Syringe IV 04/29/24 16:21 Q15MIN PRN BG <50 OR BG <70 & pt unresponsive Digoxin 0.125 mg 04/11/24 15:45 04/14/24 08:51 Digoxin Inj 0.25 Mg/Ml Amp 2 Ml IVP 05/11/24 15:44 0.125 mg QDAY ROGER Administration Enoxaparin Sodium 40 mg 04/04/24 09:00 04/14/24 08:42 Enoxaparin Sod Inj 40 Mg/0.4 Ml Syringe SC 04/18/24 08:59 40 mg QDAY ROGER Administration Ferrous Sulfate 300 mg 04/13/24 08:00 04/14/24 08:42 Ferrous Sulfate 300 Mg/5 Ml Udc PO 05/13/24 07:59 300 mg WBR ROGER Administration Folic Acid 1 mg 03/30/24 16:45 04/14/24 08:43 Folic Acid Inj 1 Mg/0.2 Ml IVP 04/29/24 16:44 1 mg QDAY ROGER Administration Furosemide 20 mg 04/14/24 09:30 04/14/24 10:41 Furosemide Inj 10 Mg/Ml 4ml Vial IVP 05/14/24 09:29 20 mg BIDD ROGER Administration Glucagon 1 mg 03/30/24 16:22 Glucagon Inj 1 Mg Vial IM Q15MIN PRN BG <70, and no IV access Hydrocortisone Sodium Succinate 100 mg 04/13/24 14:00 04/14/24 13:56 Hydrocortisone Sod Succ Inj 100 Mg Vial IV 05/13/24 13:59 100 mg Q8HR ROGER Administration Piperacillin/Tazobactam/Dextrose 3.375 gm in 50 mls @ 12.5 mls/hr 04/10/24 06:00 04/14/24 13:56 Zosyn IV 04/17/24 05:59 12.5 mls/hr Q8HR ROGER Administration Vasopressin/Sodium Chloride 20 unit in 100 mls @ 9 mls/hr 04/10/24 01:13 04/13/24 14:15 Vasostrict/Ns Ivpb IV 05/10/24 01:12 0 unit/min .Q11H7M PRN 0 mls/hr PER PROTOCOL Titration Protocol 0.03 UNIT/MIN Albumin Human 25 gm in 100 mls @ 100 mls/hr 04/12/24 10:27 04/14/24 08:41 Albuminar-25 Ivpb IV 04/15/24 10:26 100 mls/hr QDAY ROGER Administration Norepinephrine/Dextrose 8 mg in 250 mls @ 4.538 mls/hr 04/14/24 03:15 04/14/24 11:00 Levophed In D5w 8mg/250ml IV 05/14/24 03:14 0 mcg/kg/min .Q24H PRN 0 mls/hr PER PROTOCOL Titration Protocol 0.05 MCG/KG/MIN Dopamine HCl/Dextrose 400 mg in 250 mls @ 7.819 mls/hr 04/14/24 10:29 04/14/24 16:37 Intropin In D5w Ivpb IV 05/14/24 10:26 3 mcg/kg/min .Q24H ROGER 4.691 mls/hr Titration Protocol 5 MCG/KG/MIN Insulin Human Lispro 0 unit 03/30/24 17:00 04/14/24 12:09 Insulin Lispro (Admelog) 1 Unit/0.01 Ml Unit SC 04/29/24 16:59 1 unit Q6HR ROGER Administration Protocol Levothyroxine Sodium 75 mcg 04/13/24 09:00 04/14/24 08:38 Levothyroxine Inj 100 Mcg Vial IV 05/13/24 08:59 75 mcg DAILY ROGER Administration Magnesium Oxide 400 mg 04/10/24 09:00 04/14/24 08:41 Magnesium Oxide 400 Mg Tablet GT 05/11/24 15:00 400 mg BID ROGER Administration Midodrine 10 mg 04/03/24 14:00 04/14/24 13:55 Midodrine 5 Mg Tablet NG 05/03/24 13:59 10 mg TID ROGER Administration Multivitamins/Minerals 15 ml 04/05/24 16:45 04/14/24 08:38 Multivitamin 15 Ml Udc GT 05/05/24 16:44 15 ml QDAY ROGER Administration Ondansetron HCl 4 mg 03/30/24 16:17 Ondansetron Inj 2 Mg/Ml Inj 2 Ml IV 04/29/24 16:16 Q6H PRN NAUSEA OR VOMITING Protocol Pantoprazole Sodium 40 mg 03/30/24 16:30 04/14/24 08:43 Pantoprazole Inj 40 Mg Vial IVP 04/29/24 16:29 40 mg QDAY ROGER Administration Polyethylene Glycol 17 gm 04/10/24 09:00 04/14/24 08:51 Polyethylene Glycol 17 Gm Packet PO 05/10/24 08:59 17 gm QDAY ROGER Administration Potassium Chloride 40 meq 04/14/24 17:00 04/14/24 16:55 Potassium Chloride 10% 20 Meq/15 Ml Udc GT 04/14/24 17:01 40 meq X1 ONE Administration Sennosides 8.8 mg 04/06/24 17:33 04/07/24 08:03 Sennosides Syrup 8.8 Mg/5 Ml Udc NG 05/06/24 17:32 8.8 mg QDAY PRN Administration CONSTIPATION Protocol Thiamine HCl 100 mg 03/30/24 16:45 04/14/24 08:45 Thiamine Inj 100 Mg/Ml Vial 2 Ml IVP 04/29/24 16:44 100 mg QDAY ROGER Administration Plan Ms. 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 Per chart review and patient's daughter at bedside states patient have been declining physical activity for the past 2 months. She used to be able to walk herself to the restroom, feed herself, and walk around using walker and be able to communicate. But she has become increasingly depressed and bedbound for the last 1 week she has been having urinary incontinence and decreased oral intake. Patient was found unresponsive for which the family called ambulance. In the ED her blood glucose was found to be 13 she received D10 and her blood glucose improved and as well as her mentation. Patient was admitted to the hospital for possible PEG tube placement and treatment of bilateral pneumonia. On 04/02/2024 patient had a rapid response called for blood pressure of 75/44 maintaining MAP below 65 patient was given 1L bolus of normal saline without improvement of blood pressure and MAP; patient was upgraded to the ICU and Levophed was started. Neuro #History of CVA - Pt has a stroke in 2021 with residual deficit on the right side and global aphasia #Acute metabolic encephalopathy secondary to hypoglycemia -resolved -On admission patient's was altered with blood glucose was 13 and patient received D10 and her mentation improved to baseline -Patient's daughter have reported that for the past 2 months patient has become increasingly less physically active Cardio #Shock- - septic shock? 05/23 to staph bacteremia has resolved 04/08 and then patient underwent PEG tube placement procedure requiring versed and became hypotensive and levophed was restarted. -on admission pts. BC on 03/30 showed staph bacteremia in 1 of the 2 cultures, Pt has been on antibiotics -started levophed started on 04/03- -midodrine 10mg TID -Dobutamine drip started on 04/04 and D/c'd on 04/05 -vasopressin started on 04/04 and titrating it down as able -repeat echo04/05- EF 45-50% and mild to moderate MR -Patient is on Levophed at 0.23 and vasopressin goal is to wean her off as tolerating maintaining MAP around 65 #Newly diagnosed CHF - improving DDx- takatsubo cardiomyopathy -Pt. may have developed takotsubo cardiomyopathy. Per Pt.'s daughter Tamia her (their father) sent her from [place] recently because he was unable to take care of her. And he does not communicate with her which has caused the Pt. to become increasingly withdrawn and poor oral intake. Patient also lost her grandson that she raised approximately a year ago. -EF 35-40 on echo 03/31 --> repeat echo 04/05 EF 45-50% and mild to moderate MR -In light of shock, will hold guideline directed medical therapy and will resume when able -resumed Lasix will continue to monitorelectrolytes and replete as needed -Will check digoxin (started 04/11) levels 6 days after initiating therapy (04/16) -Continue to closely monitor ins and outs and calculate net negative volume daily - #Hx HTN - home meds on hold # Hx. HLD - resumed home atorvastatin #Troponinemia- resolved -on admission ? peaked at 1.033, without ST or T wave changes on EKG Pul #Pleural effusions # Aspiration pneumonia likely in the setting of dysphagia -Repeat chest x-ray showed worsening left side pneumonia and pleural effusions -bedside ultrasound showed significant pleural effusions causing left hydrothorax - patient is on sufficient coverage with antibiotics -D/c Azithro 04/02-04/07 -Patient is on Rocephin 04/02- 04/08 -D/C vancomycin due to MRSA negative -Patient is started on Zosyn on 04/10- (continue for 7 days course for aspiration pneumonia) -will speak to daughter regarding possibility of thoracenthesis. ID #Pneumonia #Bacteremia #leukocytosis -Blood cultures on 03/30/2024-grew Staph aureus on 1 of 2 -Blood cultures since then, urine cultures and MRSA - negative -Repeat chest x-ray 04/06/2024 showed worsening pneumonia Pts is found to have leukocytosis likely reactive in the setting of procedure. Pt remains afebrile, will continue to monitor closely and if she develops a fever with increasing WBC, then will consider BC at that time. -On antibiotics Zosyn -repeat blood cultures from 04/05 prelim no growth GI #Severe Malnutrition -Failure to thrive- patient's BMI is <22 and age >70 -Per patient's daughter, patient has poor oral intake and for 2 months was hiding food under the couch and bed and they often have to feed her with a syringe -likely secondary to poor oral intake -Per [employer] recommendations- Glucerna 1.2 at 40 ml/hr, Thiamine 100mg/day for 7 days, Multivitamins ordered # PEG tube - resume tube feeds at 40cc with no water flush #Hypoalbuminemia - likely secondary to nutritional deficiency -Will continue to treat underlying cause by giving adequate nutrition Endo #History of type 2 diabetes -Hemoglobin A1c on 03/31 is 6.1, blood glucose 141 -Insulin sliding scale ordered #History of hypothyroidism #Severe hypothyroidism -TSH 20.58, free T4 0.67 during this admission -Continue levothyroxine 75 mcg IV daily Renal # Hypokalemia # Hypomagnesemia # Hypovolemic hyponatremia -Likely in the setting of diuresing -Repleted 80 mEq of potassium, repleted magnesium, Heme #Acute anemia - stable -Hemoglobin 8.8 and hematocrit 25.1 -no signs of active bleeding -will continue to monitor -will transfuse again with pRBCs if Hgb <7 DVT prophylaxis-Lovenox Skin #Sacral ulcer -Patient has 2 ulcers in the sacrum -Smaller 1 appears to be stage II and the bigger one appears to be stage III -Frequent pressure redistribution -Wound care is ordered Disposition: ICU for pressor support DVT Prophylaxis: enoxaparin 40mg Qdaily GI Prophylaxis: Pantoprozol-40 IV Qday Diet: PEG tube feedings resumed glucerna 1.2 at 40ml/hr, Code status: DNR/DNI Assessment and plan discussed with my attending physician Dr. Arthur Zaman ([id number])- Internal medicine resident Attending Provider Attestation/Addendum Patient seen and examined with above resident, Ryan Zaman MD. I agree with the findings, assessment, and plan of care as documented except for any differences below. Patient continues to have significant hypotension warranting ongoing use of Levophed. Having adequate urine output and given suspicion that this is all predominantly cardiogenic now, patient will be transition to dopamine to ensure positive inotropic and chronotropic support as useful in the setting of helping further diuresis. Central venous saturation shows adequate SaO2 consistent with efficient cardiac output and oxygen delivery. Patient also with normalization of lactic acid despite lower pressures. Renal perfusion notably does improve with increased output. BNP remains elevated and the patient will need continued forced diuresis. Patient's chest film does show continued presence of pleural effusions and we will perform bedside ultrasound of Ge to determine need for thoracentesis to help from a respiratory standpoint. Patient's continued requirement for inotropic support will limit her ability to return home and we will begin discussing potential placement of patient in long-term acute care. For now, continue to optimize cardiovascular status with diuresis and inotropic support as well as appropriate treatment for her severe hypothyroidism. I suspect the acute infection has now been controlled with plan to complete course of Zosyn. Patient's overall prognosis remains guarded given her multiple coronary disease prior to arrival to the hospital and now superimposed acute decompensation of heart failure/cardiogenic shock. Patient's daughter was updated at bedside. Total critical care time: I personally spent 35 minutes for review of physiologic parameters, directing plan of care throughout the day, coordination of care with other subspecialties, and counseling patient/family at bedside. This is exclusive of time spent teaching of staff or performing any separate billable procedures. Patient continues to require critical care services for cardiogenic shock and severe hypothyroidism. She remains at high risk for further morbidity and mortality warranting ongoing management and care only available in the intensive care unit.
[2024-04-14 19:03] LABS: Anion Gap 8 (7-16); BUN/Creatinine Ratio 27 Ratio (12-20); Blood Urea Nitrogen 16 mg/dL (9-23); Calcium 8.6 mg/dL (8.3-10.6); Carbon Dioxide 32.5 mMol/L (20.0-31.0); Chloride 98 mMol/L (98-107); Creatinine (Component) 0.6 mg/dL (0.6-1.3); Estimated Creatinine Clearance 47.1 mL/min (>60); Glucose 218 mg/dL (74-106); Osmolality,Calculated 283 (275-295); Potassium 3.7 mMol/L (3.4-5.1); Sodium 138 mMol/L (136-145); eGFR > 60 See Note
--- NOTE | 2024-04-14 22:43 | ESPR_ITS ---
Documentation for date of: 04/14/24 Subjective Subjective Interval history: Patient was seen in ICU. She continues to be aphasic but able to follow commands readily. Exam - Neurology Vital Signs Temp Pulse Resp BP Pulse Ox O2 Del Method O2 Flow Rate 97.2 F 71 15 115/63 99 Nasal Cannula 2 04/14/24 16:00 04/14/24 19:15 04/14/24 19:15 04/14/24 19:15 04/14/24 19:15 04/14/24 18:30 04/14/24 18:30 FiO2 2 04/10/24 09:00 Objective Labs 04/14/24 13:51 04/14/24 18:37 Labs: Laboratory Results - last 24 hr 04/14/24 04/14/24 04/14/24 05:45 13:51 18:37 WBC 10.0 D RBC 3.32 L Hgb 10.0 L Hct 28.8 L MCV 87 MCH 30.1 MCHC 34.7 RDW Std Deviation 46.3 Plt Count 154 D Neut % (Auto) 94 H Lymph % (Auto) 4 L [place] % (Auto) 2 Eos % (Auto) 0 Baso % (Auto) 0 Neut # (Auto) 9.4 H Lymph # (Auto) 0.4 L [place] # (Auto) 0.2 Eos # (Auto) 0.0 Baso # (Auto) 0.0 Immature Gran # (Auto) 0.03 H Absolute Nucleated RBC 0.00 Immature Gran % 0 Nucleated RBC % 0 VBG pH 7.55 VBG pCO2 37 VBG pO2 32 VBG O2 Sat (Kathy) 67 L VBG Base Excess 10 H Sodium 131 L 137 138 Potassium 3.4 D 2.5 L* D 3.7 D Chloride 94 L 96 L 98 Carbon Dioxide 30.3 32.8 H 32.5 H Anion Gap 7 8 8 BUN 14 15 16 Creatinine 0.5 L 0.5 L 0.6 Estim Creat Clear Calc 62.2 56.5 L 47.1 L eGFR > 60 > 60 > 60 BUN/Creatinine Ratio 28 H 30 H 27 H Glucose 184 H 176 H 218 H Calculated Osmolality 268 L 278 283 Calcium 8.1 L 8.7 8.6 Phosphorus 2.5 Magnesium 2.0 B-Natriuretic Peptide 1492 H* ABG Interpretation ABG results: 03/30/24 04/01/24 04/01/24 13:55 10:25 17:20 ABG pH 7.48 H 7.52 H 7.47 H ABG pCO2 34 31 L 34 ABG pO2 300 H 155 H D 36 L* D ABG HCO3 25 25 25 ABG O2 Saturation 100 H 100 H 70 L ABG Base Excess 2 3 1 VBG pH VBG pCO2 VBG pO2 VBG Base Excess 04/04/24 04/11/24 04/12/24 13:52 11:50 02:45 ABG pH ABG pCO2 ABG pO2 ABG HCO3 ABG O2 Saturation ABG Base Excess VBG pH 7.43 7.46 7.55 VBG pCO2 19 L 41 35 L VBG pO2 136 H 35 33 VBG Base Excess -10 L 5 H 8 H 04/13/24 04/13/24 04/14/24 12:58 15:30 05:45 ABG pH ABG pCO2 ABG pO2 ABG HCO3 ABG O2 Saturation ABG Base Excess VBG pH 7.48 7.54 7.55 VBG pCO2 42 37 37 VBG pO2 46 41 32 VBG Base Excess 7 H 8 H 10 H Assessment & Plan Assessment and plan (1) Altered mental status: Status: Acute Additional Assessment & Plan Additional Plan: 79 yo female with PMH of 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 Per daughter patient has been nonverbal since last stroke, however she was able to walk with a walker and eat by herself until aproximately 2 months ago where she started progressively declining, decreasing oral intake, less active. The day of admission around 3am patient was found by daughter unresponsive and called EMS. On arrival patient was found with GCS of 3 glucose measured was 13, she was given D10 and repeat BS was 96. ED course: On arrival Vitals significant for hypothermia 93.8, rest of vitals nl, Labs significant for hypoglycemia of 13 which after D10 was repeated and increased to 96. CXR showed some pneumonia. UA was negative. EKG is sinus rhythm, Head CT was negative for Negative for acute hemorrhage, mass effect or midline shift, Head/Neck CTA showed 90% plus stenosis right carotid bifurcation proximal right internal carotid artery, No cerebral large vessel arterial occlusions. Neurology was consulted due to encephalopathy. Currently patient's mentation is back to baseline, per daughter. #90%right stenosis internal carotid -Patient not candidate for endarterectomy -Recommend start dual antiplatelet after PEG tube placement -Continue atorvastatin #Acute metabolic encephalopathy, improving -Likely in the setting of hypoglycemia and sepsis -MRI brain confirmed no acute infarction, prominent moderate chronic white matter changes. -Echocardiogram:Negative bubble study. TTE is suboptimal to rule out PFO or ASD. Consider GLORIA if high clincial suspicion. Normal LV size. Moderate to severe LV systolic dysfunction with an EF of around 35 to 40%. Severe hypokinesis of the mid to apical septum, apical anterior and apical anterolateral segments and akinetic apex indicating possible LAD involvement versus Takotsubo syndrome. Difficult to comment on apical thrombus due to lack of definity. Normal RV size and function. Mild TR Moderate MAC. Mild MR Mild AV sclerosis without stenosis with mild AI. Patient is waiting for colonoscopy followed by PEG tube placement if her blood pressure stabilizes
[2024-04-14] MEDS: ATORVASTATIN CALCIUM 20 MG TABLET 80 MG NG (22:49)
[2024-04-15] VITALS (92 sets, daily range): BP systolic 43–125; BP diastolic 31–73; PULSE 55–108; RESP 0–20; TEMP 36.4–37.1; O2SAT 97–100; BMI 18.5
[2024-04-15] MEDS: MIDODRINE 5 MG TABLET 10 MG NG ×3 (06:50→21:08)
[2024-04-15] MEDS: INSULIN LISPRO (AdmeLOG) 1 UNIT/0.01 ML UNIT SC ×3 (06:51→17:16)
[2024-04-15] MEDS: HYDROCORTISONE SOD SUCC INJ 100 MG VIAL IV ×3 (06:51→21:08)
[2024-04-15] MEDS: PIPER/TAZO 3.375 GM 3.375 GM/50 ML BAG IV ×3 (06:52→21:08)
[2024-04-15] MEDS: Ferrous Sulfate 300 MG/5 ML UDC PO (09:37)
[2024-04-15] MEDS: CALCIUM CARBONATE 600 MG TABLET NG (09:37)
[2024-04-15] MEDS: MULTIVITAMIN 15 ML UDC GT (09:37)
[2024-04-15] MEDS: ASPIRIN 81 MG CHEW NG (09:38)
[2024-04-15] MEDS: MAGNESIUM OXIDE 400 MG TABLET GT ×2 (09:38→21:08)
[2024-04-15] MEDS: POLYETHYLENE GLYCOL 17 GM PACKET PO (09:41)
[2024-04-15] MEDS: LEVOTHYROXINE INJ 100 mCg VIAL 75 MCG IV (09:42)
[2024-04-15] MEDS: ALBUMIN HUMAN 25% IVPB 25 GM/100 ML BTL IV (09:42)
[2024-04-15] MEDS: DIGOXIN INJ 0.25 MG/ML AMP 2 ML 0.125 MG IVP (09:45)
[2024-04-15] MEDS: PANTOPRAZOLE INJ 40 MG VIAL IVP (09:48)
[2024-04-15] MEDS: FOLIC ACID INJ 1 MG/0.2 ML IVP (09:49)
[2024-04-15] MEDS: THIAMINE INJ 100 MG/ML VIAL 2 ML IVP (09:50)
[2024-04-15] MEDS: ENOXAPARIN SOD INJ 40 MG/0.4 ML SYRINGE SC (09:51)
[2024-04-15 10:01] LABS: Anion Gap 6 (7-16); BUN/Creatinine Ratio 38 Ratio (12-20); Blood Urea Nitrogen 19 mg/dL (9-23); Calcium 8.4 mg/dL (8.3-10.6); Carbon Dioxide 32.7 mMol/L (20.0-31.0); Chloride 100 mMol/L (98-107); Creatinine (Component) 0.5 mg/dL (0.6-1.3); Estimated Creatinine Clearance 56.5 mL/min (>60); Glucose 247 mg/dL (74-106); Magnesium 1.8 mg/dL (1.6-2.6); Osmolality,Calculated 287 (275-295); Phosphorous 2.1 mg/dL (2.4-5.1); Potassium 3.4 mMol/L (3.4-5.1); Sodium 139 mMol/L (136-145); eGFR > 60 See Note
--- NOTE | 2024-04-15 10:14 | XR_ITS ---
Examination: AP chest single view TECHNIQUE: AP portable semiupright chest single view Exam date and time: April 15, 2024 1045 hours Comparison April 14, 2024 INDICATIONS: Shortness of breath today FINDINGS: Extensive bilateral lung opacity Normal heart size Layered left pleural fluid at least moderate Moderate osteopenia Right internal jugular central line tip right atrium IMPRESSION: Extensive bilateral pneumonia At least moderate layered left pleural fluid
[2024-04-15] MEDS: DOPamine/D5w 400 MG IVPB 400 MG/250 ML BAG IV (10:44)
[2024-04-15] MEDS: Magnesium Sulfate 4 GM Ivpb 4 GM/50 ML BAG IV (11:27)
[2024-04-15] MEDS: POTASSIUM CHLORIDE 10% 20 MEQ/15 ML UDC 40 MEQ GT (11:28)
[2024-04-15] MEDS: NAPH,KPH MBDB 1 PACKET (1.5 GM) 2 PACKET PO (11:28)
[2024-04-15] MEDS: FUROSEMIDE INJ 10 MG/ML 4ML VIAL 20 MG IVP ×2 (11:28→21:07)
--- NOTE | 2024-04-15 11:39 | PD.RESPRO ---
Documentation for date of: 04/15/24 Subjective Subjective Interval history: 04/10:24: The patient was examined at the bedside this morning. She was still on Levophed and vasopressin drip for pressor support. Stable saturating 95 to 96% on 2 L NC. Overnight patient had fever and tachycardia, chest exam was CTAB. Labs were significant for increasing WBC to 18.4, magnesium 1.5 and Pro-Ozzie 1.98. Blood and urine cultures were sent. IV antibiotics were started with vancomycin and Zosyn. Bedside ultrasound was significant for volume overload at inferior vena cava. The patient was given one-time dose of IV Lasix 40 Mg, with mild production of urine. 04/11: No acute overnight events patient is still on Levophed and vasopressin, goal is to wean down both pressor support. Patient is started on Lasix 20 Mg 3 times daily. Due to severe hypothyroidism patient will be started on loading dose of levothyroxine tomorrow, plus steroids and digoxin at 0.125 Mg per day. Closely monitor patient's fluid net negative and replete all electrolytes as needed. Repeat BMP and specifically VBG when MAP is around 65. 04/12: Overnight patient had 2.5 L of urine output and no other overnight events. Patient is still on pressor support, Levophed was off for several hours but MAP dropped below 65 and Levophed was restarted. Patient's cough is resolved and remains afebrile. Patient is saturating on room air. VBG today are stable. Will continue to closely monitor electrolytes and fluid net negative and will replete electrolytes as needed. BNP is 1035. Since patient was started on digoxin on 04/11/2024 will check digoxin levels in about 6 days after initiating therapy. 04/13: Overnight patient had 1.6 L of urine output and no other overnight events patient remains afebrile and cough has resolved. Patient is awake and can follow commands but she appears very lethargic, she is saturating on room air.. Currently patient is net negative of 2655. Patient was able to come off of pressor support mid afternoon and was producing 60 cc of urine per hour when she was off of pressor support. Based on her lactic acid of 2.3 and VBG findings of pH 7.54 CO2 37 O2 41 O2 saturation 81% when she was off of pressor the MAP goal is above 60%. If patient drops MAP below 60 then we will start Levophed. Will hold diuretics for now as patient diuresed really well and electrolytes are all repleted. Will continue to closely monitor patient's labs and will repeat BMP and x-ray tomorrow. Patient's current weight is 41.3 kg. 04/14: overnight pt had 1.1 L of urine output and large bowel movement. Due to MAP in the 40's levophed was started by the overnight team. This morning because Pt. didn't receive lasix her urine output decreased and Pt. was switched from levophed to dopamine. We are using dopamine renal perfusion. Lasix BID is resumed. Pts VBG is stable and lactic acid down trended to 1.6 and BNP is 1492. Pts. weight today is 41.7. will closely monitor eletrolytes and replete as needed. Pt developed a productive cough overnigh and this morning repeat chest xray show large pleural effusion on the left lung causing hydrothorax. Will have to discuss with family possible thoracenthesis. Pt may need LTACH placement as pt. may need to be on either levophed or dopamine drip to maintain kidney perfusion. 04/15: no acute overnight events. Pt had 400ml of urine output overnight. Pt is seen and examined at bedside, resting comfortable and saturation at 96% on 2L of NC. repeat chest xray this morning show improvement of plural effsuions. Pt is continued on dopamine drip for renal perfusion. Currently pt is net negative of 2418 and the goal today is net even. will transition IV thyroxine to PO after 5 days of IV and will taper down steroids once pt is off of dopamine. Pt's family is made aware of Pt. prognosis and requirement of LTACH. Pt cough is resolved and denies any pain. Exam Vital Signs Temp Pulse Resp BP Pulse Ox O2 Del Method O2 Flow Rate 97.6 F 85 14 105/55 L 99 Nasal Cannula 2 04/15/24 04:00 04/15/24 11:28 04/15/24 07:00 04/15/24 11:28 04/15/24 07:00 04/14/24 18:30 04/15/24 02:38 FiO2 2 04/10/24 09:00 Narrative Exam GENERAL: Awake, elderly thin female, Not in acute distress, non verbal but is able to follow command NEURO: alert, motor deficit in the right and upper and lower extremities HEENT: Atraumatic, Normocephalic. mucous membranes moist. Eyes open, symmetrical, & clear HEART: Faint Heart Sounds LUNGS: Clear breath sounds bilaterally ABDOMEN: soft, non-distended, non-tender, bowel sounds heard, no guarding or rebound tenderness, PEG tube in place SKIN: 2 sacral ulcers, smaller one appears to be stage 2 and larger one appears to be stage 3 EXTREMITIES: trace pitting edema bilaterally on UE, non pitting edema on lower extremity, pedal pulses palpated, contracted lower extremities Objective Labs 04/17/24 09:24 04/17/24 09:24 Labs: Laboratory Results - last 24 hr 04/14/24 04/14/24 04/15/24 13:51 18:37 08:47 WBC 10.0 D RBC 3.32 L Hgb 10.0 L Hct 28.8 L MCV 87 MCH 30.1 MCHC 34.7 RDW Std Deviation 46.3 Plt Count 154 D Neut % (Auto) 94 H Lymph % (Auto) 4 L Sequoy[place] % (Auto) 2 Eos % (Auto) 0 Baso % (Auto) 0 Neut # (Auto) 9.4 H Lymph # (Auto) 0.4 L [place]ah # (Auto) 0.2 Eos # (Auto) 0.0 Baso # (Auto) 0.0 Immature Gran # (Auto) 0.03 H Absolute Nucleated RBC 0.00 Immature Gran % 0 Nucleated RBC % 0 Sodium 137 138 139 Potassium 2.5 L* D 3.7 D 3.4 Chloride 96 L 98 100 Carbon Dioxide 32.8 H 32.5 H 32.7 H Anion Gap 8 8 6 L BUN 15 16 19 Creatinine 0.5 L 0.6 0.5 L Estim Creat Clear Calc 56.5 L 47.1 L 56.5 L eGFR > 60 > 60 > 60 BUN/Creatinine Ratio 30 H 27 H 38 H Glucose 176 H 218 H 247 H Calculated Osmolality 278 283 287 Calcium 8.7 8.6 8.4 Phosphorus 2.5 2.1 L Magnesium 2.0 1.8 ABG Interpretation ABG results: 03/30/24 04/01/24 04/01/24 13:55 10:25 17:20 ABG pH 7.48 H 7.52 H 7.47 H ABG pCO2 34 31 L 34 ABG pO2 300 H 155 H D 36 L* D ABG HCO3 25 25 25 ABG O2 Saturation 100 H 100 H 70 L ABG Base Excess 2 3 1 VBG pH VBG pCO2 VBG pO2 VBG Base Excess 04/04/24 04/11/24 04/12/24 13:52 11:50 02:45 ABG pH ABG pCO2 ABG pO2 ABG HCO3 ABG O2 Saturation ABG Base Excess VBG pH 7.43 7.46 7.55 VBG pCO2 19 L 41 35 L VBG pO2 136 H 35 33 VBG Base Excess -10 L 5 H 8 H 04/13/24 04/13/24 04/14/24 12:58 15:30 05:45 ABG pH ABG pCO2 ABG pO2 ABG HCO3 ABG O2 Saturation ABG Base Excess VBG pH 7.48 7.54 7.55 VBG pCO2 42 37 37 VBG pO2 46 41 32 VBG Base Excess 7 H 8 H 10 H Quality Measures Quality Measures sepsis Current suspected stage: ruled out Possible source: unknown Blood cultures ordered: completed in ED Antibiotic ordered: Yes Advance care planning discussed with:: child Assessment & Plan Assessment Current Active Medications: Generic Name Dose Route Start Last Admin Trade Name Freq PRN Reason Stop Dose Admin Acetaminophen 650 mg 03/30/24 16:17 Acetaminophen 325 Mg Tablet PO 04/29/24 16:16 Q6H PRN Fever >101.5 Acetaminophen 650 mg 03/30/24 16:17 04/14/24 10:40 Acetaminophen 325 Mg Tablet PO 04/29/24 16:16 650 mg Q6H PRN Administration PAIN SCALE 1-3 (mild Aspirin 81 mg 04/06/24 07:35 04/15/24 09:38 Aspirin 81 Mg Chew NG 05/01/24 18:44 81 mg QDAY ROGER Administration Atorvastatin Calcium 80 mg 04/06/24 07:35 04/14/24 22:49 Atorvastatin Calcium 20 Mg Tablet NG 05/01/24 20:59 80 mg HS ROGER Administration Calcium Carbonate 600 mg 04/03/24 09:45 04/15/24 09:37 Calcium Carbonate 600 Mg Tablet NG 05/03/24 09:44 600 mg QDAY ROGER Administration Dextrose 25 ml 03/30/24 16:22 04/01/24 04:58 Dextrose 50%-Water Inj 50 Ml Syringe IV 04/29/24 16:21 25 ml Q15MIN PRN Administration BG 50-70 responsive npo pt Dextrose 50 ml 03/30/24 16:22 Dextrose 50%-Water Inj 50 Ml Syringe IV 04/29/24 16:21 Q15MIN PRN BG <50 OR BG <70 & pt unresponsive Digoxin 0.125 mg 04/11/24 15:45 04/15/24 09:45 Digoxin Inj 0.25 Mg/Ml Amp 2 Ml IVP 05/11/24 15:44 0.125 mg QDAY ROGER Administration Enoxaparin Sodium 40 mg 04/04/24 09:00 04/15/24 09:51 Enoxaparin Sod Inj 40 Mg/0.4 Ml Syringe SC 04/18/24 08:59 40 mg QDAY ROGER Administration Ferrous Sulfate 300 mg 04/13/24 08:00 04/15/24 09:37 Ferrous Sulfate 300 Mg/5 Ml Udc PO 05/13/24 07:59 300 mg WBR ROGER Administration Folic Acid 1 mg 03/30/24 16:45 04/15/24 09:49 Folic Acid Inj 1 Mg/0.2 Ml IVP 04/29/24 16:44 1 mg QDAY ROGER Administration Furosemide 20 mg 04/15/24 10:30 04/15/24 11:28 Furosemide Inj 10 Mg/Ml 4ml Vial IVP 05/15/24 10:29 20 mg BID ROGER Administration Glucagon 1 mg 03/30/24 16:22 Glucagon Inj 1 Mg Vial IM Q15MIN PRN BG <70, and no IV access Hydrocortisone Sodium Succinate 100 mg 04/13/24 14:00 04/15/24 06:51 Hydrocortisone Sod Succ Inj 100 Mg Vial IV 05/13/24 13:59 100 mg Q8HR ROGER Administration Piperacillin/Tazobactam/Dextrose 3.375 gm in 50 mls @ 12.5 mls/hr 04/10/24 06:00 04/15/24 06:52 Zosyn IV 04/17/24 05:59 12.5 mls/hr Q8HR ROGER Administration Vasopressin/Sodium Chloride 20 unit in 100 mls @ 9 mls/hr 04/10/24 01:13 04/13/24 14:15 Vasostrict/Ns Ivpb IV 05/10/24 01:12 0 unit/min .Q11H7M PRN 0 mls/hr PER PROTOCOL Titration Protocol 0.03 UNIT/MIN Norepinephrine/Dextrose 8 mg in 250 mls @ 4.538 mls/hr 04/14/24 03:15 04/14/24 11:00 Levophed In D5w 8mg/250ml IV 05/14/24 03:14 0 mcg/kg/min .Q24H PRN 0 mls/hr PER PROTOCOL Titration Protocol 0.05 MCG/KG/MIN Magnesium Sulfate 4 gm in 50 mls @ 12.5 mls/hr 04/15/24 10:17 04/15/24 11:27 Magnesium Sulfate Ivpb IV 04/15/24 14:16 12.5 mls/hr X1 ONE Administration Dopamine HCl/Dextrose 400 mg in 250 mls @ 1.504 mls/hr 04/15/24 10:32 04/15/24 11:20 Intropin In D5w Ivpb IV 05/15/24 10:31 0.5 mcg/kg/min .Q24H ROGER 0.752 mls/hr Titration Protocol 1 MCG/KG/MIN Insulin Human Lispro 0 unit 03/30/24 17:00 04/15/24 06:51 Insulin Lispro (Admelog) 1 Unit/0.01 Ml Unit SC 04/29/24 16:59 1 unit Q6HR ROGER Administration Protocol Levothyroxine Sodium 75 mcg 04/13/24 09:00 04/15/24 09:42 Levothyroxine Inj 100 Mcg Vial IV 05/13/24 08:59 75 mcg DAILY ROGER Administration Magnesium Oxide 400 mg 04/10/24 09:00 04/15/24 09:38 Magnesium Oxide 400 Mg Tablet GT 05/11/24 15:00 400 mg BID ROGER Administration Midodrine 10 mg 04/03/24 14:00 04/15/24 06:50 Midodrine 5 Mg Tablet NG 05/03/24 13:59 10 mg TID ROGER Administration Multivitamins/Minerals 15 ml 04/05/24 16:45 04/15/24 09:37 Multivitamin 15 Ml Udc GT 05/05/24 16:44 15 ml QDAY ROGER Administration Ondansetron HCl 4 mg 03/30/24 16:17 Ondansetron Inj 2 Mg/Ml Inj 2 Ml IV 04/29/24 16:16 Q6H PRN NAUSEA OR VOMITING Protocol Pantoprazole Sodium 40 mg 03/30/24 16:30 04/15/24 09:48 Pantoprazole Inj 40 Mg Vial IVP 04/29/24 16:29 40 mg QDAY ROGER Administration Polyethylene Glycol 17 gm 04/10/24 09:00 04/15/24 09:41 Polyethylene Glycol 17 Gm Packet PO 05/10/24 08:59 17 gm QDAY ROGER Administration Sennosides 8.8 mg 04/06/24 17:33 04/07/24 08:03 Sennosides Syrup 8.8 Mg/5 Ml Udc NG 05/06/24 17:32 8.8 mg QDAY PRN Administration CONSTIPATION Protocol Thiamine HCl 100 mg 03/30/24 16:45 04/15/24 09:50 Thiamine Inj 100 Mg/Ml Vial 2 Ml IVP 04/29/24 16:44 100 mg QDAY ROGER Administration Plan Ms. 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 Per chart review and patient's daughter at bedside states patient have been declining physical activity for the past 2 months. She used to be able to walk herself to the restroom, feed herself, and walk around using walker and be able to communicate. But she has become increasingly depressed and bedbound for the last 1 week she has been having urinary incontinence and decreased oral intake. Patient was found unresponsive for which the family called ambulance. In the ED her blood glucose was found to be 13 she received D10 and her blood glucose improved and as well as her mentation. Patient was admitted to the hospital for possible PEG tube placement and treatment of bilateral pneumonia. On 04/02/2024 patient had a rapid response called for blood pressure of 75/44 maintaining MAP below 65 patient was given 1L bolus of normal saline without improvement of blood pressure and MAP; patient was upgraded to the ICU and Levophed was started. Neuro #History of CVA - Pt has a stroke in 2021 with residual deficit on the right side and global aphasia #Acute metabolic encephalopathy secondary to hypoglycemia -resolved -On admission patient's was altered with blood glucose was 13 and patient received D10 and her mentation improved to baseline -Patient's daughter have reported that for the past 2 months patient has become increasingly less physically active Cardio #Shock- resolved - septic shock? 2/ to staph bacteremia has resolved 04/08 and then patient underwent PEG tube placement procedure requiring versed and became hypotensive and levophed was restarted. -on admission pts. BC on 03/30 showed staph bacteremia in 1 of the 2 cultures, Pt has been on antibiotics -started levophed started on 04/03- -midodrine 10mg TID -Dobutamine drip started on 04/04 and D/c'd on 04/05 -vasopressin started on 04/04 and titrating it down as able -repeat echo04/05- EF 45-50% and mild to moderate MR -Patient is off Levophed and vasopressin #Newly diagnosed CHF - improving DDx- takatsubo cardiomyopathy -Pt. may have developed takotsubo cardiomyopathy. Per Pt.'s daughter Tamia her (their father) sent her from [place] recently because he was unable to take care of her. And he does not communicate with her which has caused the Pt. to become increasingly withdrawn and poor oral intake. Patient also lost her grandson that she raised approximately a year ago. -EF 35-40 on echo 03/31 --> repeat echo 04/05 EF 45-50% and mild to moderate MR -In light of shock, will hold guideline directed medical therapy and will resume when able -resumed Lasix will continue to monitor electrolytes and replete as needed -Will check digoxin (started 04/11) levels 6 days after initiating therapy (04/16) -Continue to closely monitor ins and outs -Goal is net even today - #Hx HTN - home meds on hold # Hx. HLD - resumed home atorvastatin #Troponinemia- resolved -on admission ? peaked at 1.033, without ST or T wave changes on EKG Pul #Pleural effusions # Aspiration pneumonia likely in the setting of dysphagia -Repeat chest x-ray showed worsening left side pneumonia and pleural effusions -bedside ultrasound showed significant pleural effusions causing left hydrothorax - patient is on sufficient coverage with antibiotics -D/c Azithro 04/02-04/07 -Patient is on Rocephin 04/02- 04/08 -D/C vancomycin due to MRSA negative -Patient is started on Zosyn on 04/10- (continue for 7 days course for aspiration pneumonia) -Pleural effusions are improved on repeat chest xrays on 04/15, will continue to monitor ID #Pneumonia #Bacteremia #leukocytosis -Blood cultures on 03/30/2024-grew Staph aureus on 1 of 2 -Blood cultures since then, urine cultures and MRSA - negative -Repeat chest x-ray 04/06/2024 showed worsening pneumonia Pts is found to have leukocytosis likely reactive in the setting of procedure. Pt remains afebrile, will continue to monitor closely and if she develops a fever with increasing WBC, then will consider BC at that time. -On antibiotics Zosyn -repeat blood cultures from 04/05 prelim no growth GI #Severe Malnutrition -Failure to thrive- patient's BMI is <22 and age >70 -Per patient's daughter, patient has poor oral intake and for 2 months was hiding food under the couch and bed and they often have to feed her with a syringe -likely secondary to poor oral intake -Per [employer] Education Teacher recommendations- Glucerna 1.2 at 40 ml/hr, Thiamine 100mg/day for 7 days, Multivitamins ordered # PEG tube - resume tube feeds at 40cc with no water flush #Hypoalbuminemia - likely secondary to nutritional deficiency -Will continue to treat underlying cause by giving adequate nutrition Endo #History of type 2 diabetes -Hemoglobin A1c on 03/31 is 6.1, blood glucose 247 -Insulin sliding scale ordered #History of hypothyroidism #Severe hypothyroidism -TSH 20.58, free T4 0.67 during this admission -Continue levothyroxine 75 mcg IV daily, will transition to PO levothyroxine 75mcg after 5 days of IV Renal # Hypokalemia # Hypomagnesemia -Likely in the setting of diuresing -Repleted 80 mEq of potassium, repleted magnesium, Heme #Acute anemia - stable -Hemoglobin 8.8 and hematocrit 25.1 -no signs of active bleeding -will continue to monitor -will transfuse again with pRBCs if Hgb <7 DVT prophylaxis-Lovenox Skin #Sacral ulcer -Patient has 2 ulcers in the sacrum -Smaller 1 appears to be stage II and the bigger one appears to be stage III -Frequent pressure redistribution -Wound care is ordered Disposition: ICU for pressor support DVT Prophylaxis: enoxaparin 40mg Qdaily GI Prophylaxis: Pantoprozol-40 IV Qday Diet: PEG tube feedings resumed glucerna 1.2 at 40ml/hr, Code status: DNR/DNI Assessment and plan discussed with my attending physician Dr. Arthur Zaman ([id number])- Internal medicine resident Attending Provider Attestation/Addendum Patient seen and examined with above resident, Ryan Zaman MD. I agree with the findings, assessment, and plan of care as documented except for any differences below. Patient continues to have brisk urine output with use of dopamine for inotropic and renal perfusion. Patient net -2.4 L with ongoing goal to maintain net unit. Follow-up chest x-ray also showing significant improvement in pleural effusions consistent with volume overload from CHF. Transitioned to IV levothyroxine beginning tomorrow along with steroids once off dopamine for severe hypothyroidism and possible ricki mitten adrenal insufficiency. Patient's fibrosis continues. Guarded with family remains hopeful that she will continue to make recovery. She does have significant dysfunction with reduced ejection fraction as evidenced by significant volume overload. I have reiterated the high likelihood that they will acute infection will be resolved and we will optimize for cardiac function, it is likely to cause recurrent CHF exacerbations limiting her quality of life which is already quite poor due to severe neurologic dysfunction post CVA with even sacral wounds. Her family have attempted to take excellent care of her which has extended her life thus far but overall prognosis remains guarded. However does not wish to continue all aggressive means we will continue to further optimized with goal to potentially wean off of inotropic support, but if we are unable to then we will consider transition to long-term acute care. Total critical care time: I personally spent 35 minutes for review of physiologic parameters, directing plan of care throughout the day, coordination of care with other subspecialists, and counseling patient's family extensively at bedside. This is exclusive of time spent teaching housestaff or performing any separate billable procedures. Patient continues require critical care services due to cardiogenic/distributive shock in the setting of acute hypoxic respiratory failure from pneumonia and pre-existing acute on chronic decompensated heart failure with severe hypothyroidism potentially playing a role. Patient remains at high risk for further morbidity and mortality warranting ongoing close monitoring and care only available in the intensive care unit.
[2024-04-15] MEDS: ACETAMINOPHEN 325 MG TABLET 650 MG PO (16:52)
--- NOTE | 2024-04-15 16:52 | PD.IMPROG ---
Documentation for date of: 04/15/24 Subjective Subjective Interval history: Patient evaluated She is now at 40 cc an hour for the enteral hyperalimentation and tolerating it well Exam Vital Signs Temp Pulse Resp BP Pulse Ox O2 Del Method O2 Flow Rate 98.1 F 86 2 L 117/55 L 99 Nasal Cannula 2 04/15/24 12:00 04/15/24 15:58 04/15/24 14:45 04/15/24 15:58 04/15/24 14:45 04/15/24 14:15 04/15/24 14:15 FiO2 2 04/10/24 09:00 Routine Respiratory Exam Comments: Normal to auscultation Routine Abdominal Exam Comments: No drainage at the PEG site Objective Labs 04/14/24 13:51 04/15/24 08:47 Labs: Laboratory Results - last 24 hr 04/14/24 04/15/24 18:37 08:47 Sodium 138 139 Potassium 3.7 D 3.4 Chloride 98 100 Carbon Dioxide 32.5 H 32.7 H Anion Gap 8 6 L BUN 16 19 Creatinine 0.6 0.5 L Estim Creat Clear Calc 47.1 L 56.5 L eGFR > 60 > 60 BUN/Creatinine Ratio 27 H 38 H Glucose 218 H 247 H Calculated Osmolality 283 287 Calcium 8.6 8.4 Phosphorus 2.1 L Magnesium 1.8 Impressions Impression: # Failure to thrive # Status postplacement of a PEG tube # Enteral hyperalimentation through the PEG tube current rate is 40 cc an hour ABG Interpretation ABG results: 03/30/24 04/01/24 04/01/24 13:55 10:25 17:20 ABG pH 7.48 H 7.52 H 7.47 H ABG pCO2 34 31 L 34 ABG pO2 300 H 155 H D 36 L* D ABG HCO3 25 25 25 ABG O2 Saturation 100 H 100 H 70 L ABG Base Excess 2 3 1 VBG pH VBG pCO2 VBG pO2 VBG Base Excess 04/04/24 04/11/24 04/12/24 13:52 11:50 02:45 ABG pH ABG pCO2 ABG pO2 ABG HCO3 ABG O2 Saturation ABG Base Excess VBG pH 7.43 7.46 7.55 VBG pCO2 19 L 41 35 L VBG pO2 136 H 35 33 VBG Base Excess -10 L 5 H 8 H 04/13/24 04/13/24 04/14/24 12:58 15:30 05:45 ABG pH ABG pCO2 ABG pO2 ABG HCO3 ABG O2 Saturation ABG Base Excess VBG pH 7.48 7.54 7.55 VBG pCO2 42 37 37 VBG pO2 46 41 32 VBG Base Excess 7 H 8 H 10 H Assessment & Plan A&P Narrative 79-year-old female with past medical history of hypertension, hyperlipidemia, 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 1. Acute decompensated systolic heart failure (EF 45 to 50%) 2. NSTEMI 3. Essential hypertension ?Given patient's elevated troponins which peaked at 1.033 and down trended this is most likely NSTEMI type II likely demand ischemia ?Given patient is a poor candidate for heart catheterization at this time due to other comorbidities we will treat medically for now ?Patient's blood pressure has been under control during her hospital stay. ?Echo done on 03/31/2024 has had the following findings: Negative bubble study. TTE is suboptimal to rule out PFO or ASD. Consider GLORIA if high clincial suspicion. Normal LV size. Moderate to severe LV systolic dysfunction with an EF of around 35 to 40%.Severe hypokinesis of the mid to apical septum, apical anterior and apical anterolateral segments and akinetic apex indicating possible LAD involvement versus Takotsubo syndrome. Difficult to comment on apical thrombus due to lack of definity. Normal RV size and function. Mild TR Moderate MAC. Mild MR Mild AV sclerosis without stenosis with mild AI. ?Patient most likely has some underlying CAD, but given multiple comorbidities and current clinical status she is not a good candidate for heart catheterization and family is aware of this and are in agreement. ? 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 Should be attributed medically for now. -Echo on 04/05/2024 had the following findings: Normal left ventricular size, wall thickness. Low normal systolic function. Estimated 45-50%. RV is normal in size and systolic function. The estimated RVSP, 34 mmHg. RAP 5. Moderate MAC. Mild to moderate MR. Mild sclerosis without stenosis. Mild AI. -Findings showed significant improvement, but was on pressors and could indicate possible Takotsubo syndrome which could be possibly secondary to the sepsis Plan: ?Recommend to hold off on goal-directed medical therapy with beta-devon, Entresto as well as spironolactone as patient is still hypotensive and requiring increase of vasopressor. -can start patient in oral diuresis if BP allows and patient becomes fluid overloaded. ?Patient should also be on aspirin and statin ?No need to trend troponins 04/13/2024: Patient's TSH was 20.58 as well as free T4 was 0.467 during this admission and patient is only oral thyroxine and was given additional loading dose of levothyroxine 20 mcg IV along with some hydrocortisone. Patient started on treatment for hypothyroidism based on her clinical picture and was tapered off vasopressors yesterday Patient developed fever and some cough and is on IV antibiotics and started on pressors again and is only on vasopressin during my visit today. Heart rate is well-controlled and patient still continues to be in atrial fibrillation but rate well-controlled. Hemoglobin better after the transfusions. Patient did receive digoxin but is on hold as the patient is hypokalemic. Telemetry shows intermittent A-fib Continue to monitor telemetry closely Continue midodrine 10 mg 3 times a day. Continue to monitor in ICU for another 24 hours before she can be transferred out if hemodynamically stable and does not require pressors anymore 4. Acute encephalopathy 5. Hypoglycemia 6. DM2 ?Patient has been taking glyburide 5 mg as well as metformin 625 mg 3 times daily which could have precipitated his patient hypoglycemia in the event that she has been having poor oral intake. ? Continue current management as per primary care team 7. Failure to thrive ?Patient may benefit from PEG tube placement as she has been having poor oral intake for the past few weeks. ? Recommend to follow GI recommendations ? Continue current management as per primary care team 8. CVA with residual right-sided deficits 9. Hyperlipidemia ? Continue current management as primary care team Management of rest of the medical conditions as per primary team and other consultants. Thank you for the consult and allowing me to participate in the care of the patient. Cardiology will continue to follow. Rao Dodson M.D. Interventional Cardiology Time Spent With Patient Time: Total time spent is greater than 50% in coordination of care (as documented) at patient's floor/unit and/or counseling patient:
[2024-04-15 19:25] LABS: Anion Gap 7 (7-16); BUN/Creatinine Ratio 35 Ratio (12-20); Blood Urea Nitrogen 21 mg/dL (9-23); Carbon Dioxide 35.3 mMol/L (20.0-31.0); Chloride 98 mMol/L (98-107); Creatinine (Component) 0.6 mg/dL (0.6-1.3); Estimated Creatinine Clearance 47.1 mL/min (>60); Glucose 181 mg/dL (74-106); Potassium 2.9 mMol/L (3.4-5.1); Sodium 140 mMol/L (136-145); eGFR > 60 See Note
[2024-04-15 19:26] LABS: Calcium 8.7 mg/dL (8.3-10.6); Osmolality,Calculated 287 (275-295)
[2024-04-15] MEDS: ATORVASTATIN CALCIUM 20 MG TABLET 80 MG NG (21:08)
[2024-04-16] VITALS (107 sets, daily range): BP systolic 83–147; BP diastolic 38–78; PULSE 54–87; RESP 1–25; TEMP 36.1–36.3; O2SAT 91–100; BMI 18.4
[2024-04-16] MEDS: INSULIN LISPRO (AdmeLOG) 1 UNIT/0.01 ML UNIT SC ×3 (00:13→17:49)
[2024-04-16] MEDS: POTASSIUM CHL 20 mEq IVPB 20 MEQ/100 ML BAG 100 MEQ IV ×2 (00:24→01:24)
[2024-04-16] MEDS: HYDROCORTISONE SOD SUCC INJ 100 MG VIAL IV ×3 (05:11→21:14)
[2024-04-16] MEDS: MIDODRINE 5 MG TABLET 10 MG NG (05:11)
[2024-04-16] MEDS: PIPER/TAZO 3.375 GM 3.375 GM/50 ML BAG IV ×3 (05:11→21:14)
[2024-04-16 06:15] LABS: T3,Total* <25 ng/dL (76-181)
[2024-04-16 06:51] LABS: Alanine Aminotransferase 15 U/L (10-49); Albumin, Serum 3.5 gm/dL (3.4-4.8); Albumin/Globulin Ratio 1.5 (1.2-2.2); Alkaline Phosphatase 139 U/L (46-116); Anion Gap 7 (7-16); Aspartate Amino Transferase 26 U/L (0-34); BUN/Creatinine Ratio 44 Ratio (12-20); Bilirubin,Total 0.4 mg/dL (0.3-1.2); Blood Urea Nitrogen 22 mg/dL (9-23); Calcium 8.7 mg/dL (8.3-10.6); Calcium (Corrected) 9.1 mg/dL (8.5-10.1); Carbon Dioxide 37.1 mMol/L (20.0-31.0); Chloride 95 mMol/L (98-107); Creatinine (Component) 0.5 mg/dL (0.6-1.3); Digoxin 0.8 ng/mL (0.8-2.0); Estimated Creatinine Clearance 56.5 mL/min (>60); Globulin 2.4 gm/dL (2.3-3.5); Glucose 201 mg/dL (74-106); Osmolality,Calculated 286 (275-295); Potassium 2.8 mMol/L (3.4-5.1); Sodium 139 mMol/L (136-145); Total Protein 5.9 gm/dL (5.7-8.2); eGFR > 60 See Note
[2024-04-16 07:22] LABS: Basophils % (Auto) 0 % (0-2.5); Eosinophils % (Auto) 0 % (0-10); Hematocrit 28.2 % (36.0-46.0); Hemoglobin 9.2 g/dL (12.0-16.0); Immature Granulocytes % (Auto) 1 % (0-0); Immature Granulocytes Auto 0.11 Thou/mm3 (0.00-0.00); Lymphocytes # (Auto) 0.4 Thou/mm3 (1.0-4.8); Lymphocytes % (Auto) 2 % (10-50); Mean Corpuscular HGB Conc 32.6 g/dl (31.0-37.0); Mean Corpuscular Hemoglobin 30.2 pg (25.0-35.0); Mean Corpuscular Volume 93 fL (80-100); Monocytes # (Auto) 0.3 Thou/mm3 (0.0-0.8); Monocytes % (Auto) 1 % (0-12); Neutrophils % (Auto) 96 % (37-80); Nucleated Red Blood Cell % 0 /100 WBC (0); Platelet Count 163 Thou/mm3 (140-440); RDW Standard Deviation 49.7 fL (36.4-46.3); Red Blood Count 3.05 Miln/mm3 (4.00-5.20); White Blood Count 19.8 Thou/mm3 (3.6-11.0)
[2024-04-16] MEDS: POTASSIUM CHLORIDE 10% 20 MEQ/15 ML UDC 40 MEQ GT ×2 (07:29→08:25)
[2024-04-16] MEDS: Ferrous Sulfate 300 MG/5 ML UDC PO (07:29)
[2024-04-16] MEDS: POTASSIUM CHL 20 mEq IVPB 20 MEQ/100 ML BAG 50 MEQ IV ×2 (07:29→09:51)
[2024-04-16] MEDS: NAPH,KPH MBDB 1 PACKET (1.5 GM) PO ×2 (07:45→08:06)
[2024-04-16] MEDS: Magnesium Sulfate 4 GM Ivpb 4 GM/50 ML BAG IV (07:45)
--- NOTE | 2024-04-16 08:02 | XR_ITS ---
Examination: AP chest single view TECHNIQUE: AP portable semiupright chest single view Exam date and time: April 16, 2024 0834 hours Comparison April 15, 2024 INDICATIONS: Altered mental status shortness of breath today, history pneumonia on chest film April 15, 2024 FINDINGS: Normal heart size Mild pneumonia right base, significant left lung pneumonia Right internal jugular central line tip right atrium No pneumothorax Normal heart size On this study suspicious for free air beneath the right hemidiaphragm, clinical correlation advised IMPRESSION: Significant left lung pneumonia Suspicious for free air beneath the right hemidiaphragm, consider repeat CT scan abdomen pelvis post intravenous contrast
[2024-04-16] MEDS: MULTIVITAMIN 15 ML UDC GT (08:05)
[2024-04-16] MEDS: THIAMINE INJ 100 MG/ML VIAL 2 ML IVP (08:05)
[2024-04-16] MEDS: FOLIC ACID INJ 1 MG/0.2 ML IVP (08:05)
[2024-04-16] MEDS: MAGNESIUM OXIDE 400 MG TABLET GT (08:06)
[2024-04-16] MEDS: CALCIUM CARBONATE 600 MG TABLET NG (08:06)
[2024-04-16] MEDS: ASPIRIN 81 MG CHEW NG (08:07)
[2024-04-16] MEDS: PANTOPRAZOLE INJ 40 MG VIAL IVP (08:11)
[2024-04-16] MEDS: POLYETHYLENE GLYCOL 17 GM PACKET PO (08:11)
[2024-04-16] MEDS: FUROSEMIDE INJ 10 MG/ML 4ML VIAL 20 MG IVP (08:19)
[2024-04-16] MEDS: DIGOXIN INJ 0.25 MG/ML AMP 2 ML 0.125 MG IVP (08:20)
[2024-04-16] MEDS: MIDODRINE 5 MG TABLET NG (08:24)
[2024-04-16] MEDS: ENOXAPARIN SOD INJ 40 MG/0.4 ML SYRINGE SC (08:30)
[2024-04-16 09:42] LABS: Lactate (Lactic Acid) 2.7 mMol/L (0.4-2.0)
[2024-04-16 09:44] LABS: Base Excess, Venous 14 (-3-3); O2 Saturation, Venous 80 % (96-97); PCO2, Venous 47 mmHg (36-56); PO2, Venous 40 mmHg (15-58); pH, Venous 7.52 (7.33-7.66)
[2024-04-16] MEDS: ACETAMINOPHEN 325 MG TABLET 650 MG PO (09:51)
--- NOTE | 2024-04-16 09:58 | XR_ITS ---
Examination: CT abdomen and pelvis without contrast. Coronal 3-D reconstructions. Sagittal 2-D reconstructions. Date and time of exam:April 16, 2024 1036 hours INDICATIONS: Suspicious for free air beneath right hemidiaphragm on chest x-ray April 16, 2024 0828 hours CTDI: vol (mGy): 7.16 DLP: (mGycm): 424 Technique: Axial images of the abdomen have been obtained, 3 mm slice thickness Intravenous contrast material has not been administered. Low dose protocols were performed. One or more of the following dose reduction techniques were used; automated exposure control, adjustment of the mA and/or KV according to patient size, use of iterative reconstruction technique. Findings: Bibasilar pneumonia, mild right mild to moderate left pleural fluid Extensive pneumoperitoneum Gastrostomy tube projects in the stomach No focal liver or splenic lesion Distended gallbladder with gallbladder wall thickening Mild free fluid in the pelvis No hydronephrosis Dense abdominal aortic calcification Suspicious for air in small bowel wall on multiple images, including axial image 118 No bowel obstruction Lack of intravenous contrast severely limits this study Atrophic uterus Urinary bladder contracted around a Phelps catheter Abundant stool in the rectum with thickening of the rectal wall Air droplets also appear to be in the wall of the rectum Severe osteopenia IMPRESSION: Bibasilar pneumonia Mild right mild to moderate left pleural fluid Extensive pneumoperitoneum Distended gallbladder with gallbladder wall thickening, recommend hepatobiliary sonography follow-up Suspicious for air droplets in the wall of both small bowel and rectum, consider, recommend surgical consultation
[2024-04-16] MEDS: RINGERS LACTATED 1000 ML 500 ML 125 ML IV (11:37)
--- NOTE | 2024-04-16 12:08 | ESPR_ITS ---
Documentation for date of: 04/16/24 Subjective Subjective Interval history: Patient examined bedside this morning in ICU, patient looks frial . PEG tube in place Exam Vital Signs Temp Pulse Resp BP Pulse Ox O2 Del Method O2 Flow Rate 97.3 F 60 20 100/45 L 92 L Nasal Cannula 2 04/16/24 08:00 04/16/24 11:01 04/16/24 11:01 04/16/24 11:01 04/16/24 11:01 04/16/24 08:00 04/16/24 08:00 FiO2 2 04/10/24 09:00 Narrative Exam GENERAL: extremily frial , awake , tries to follow command , NG in place NECK: Supple, nontender, no JVD CHEST: Symmetrical, atraumatic and with equal expansion ,Nontender on palpation CARDIOVASCULAR: Heart regular rhythm & rate. S1/S2. no murmur or gallop rub or extra beats. LUNGS: Clear to auscultation bilaterally with symmetrical chest rise. No laboring tachypnea or wheezing. No intercostal subcostal retraction. ABDOMEN: Soft, flat, nontender to palpation, no guarding or rebound tenderness. Active and normal bowel sounds.PEG tube in plac NEURO: Patient is AO x 1 , Cranial nerves II through XII grossly intact Objective Labs 04/17/24 09:24 04/17/24 09:24 Labs: Laboratory Results - last 24 hr 04/11/24 04/15/24 04/16/24 10:00 18:44 05:05 WBC 19.8 H D RBC 3.05 L Hgb 9.2 L Hct 28.2 L MCV 93 MCH 30.2 MCHC 32.6 RDW Std Deviation 49.7 H Plt Count 163 Neut % (Auto) 96 H Lymph % (Auto) 2 L Rapides % (Auto) 1 Eos % (Auto) 0 Baso % (Auto) 0 Neut # (Auto) 19.0 H Lymph # (Auto) 0.4 L Rapides # (Auto) 0.3 Eos # (Auto) 0.0 Baso # (Auto) 0.0 Immature Gran # (Auto) 0.11 H Absolute Nucleated RBC 0.00 Immature Gran % 1 H Nucleated RBC % 0 VBG pH VBG pCO2 VBG pO2 VBG O2 Sat (Kathy) VBG Base Excess Sodium 140 139 Potassium 2.9 L D 2.8 L Chloride 98 95 L Carbon Dioxide 35.3 H 37.1 H Anion Gap 7 7 BUN 21 22 Creatinine 0.6 0.5 L Estim Creat Clear Calc 47.1 L 56.5 L eGFR > 60 > 60 BUN/Creatinine Ratio 35 H 44 H Glucose 181 H D 201 H Calculated Osmolality 287 286 Lactic Acid Calcium 8.7 8.7 Corrected Calcium 9.1 Total Bilirubin 0.4 AST 26 ALT 15 Alkaline Phosphatase 139 H Total Protein 5.9 Albumin 3.5 Globulin 2.4 Albumin/Globulin Ratio 1.5 Total T3 <25 L Digoxin 0.8 04/16/24 09:30 WBC RBC Hgb Hct MCV MCH MCHC RDW Std Deviation Plt Count Neut % (Auto) Lymph % (Auto) Rapides % (Auto) Eos % (Auto) Baso % (Auto) Neut # (Auto) Lymph # (Auto) Rapides # (Auto) Eos # (Auto) Baso # (Auto) Immature Gran # (Auto) Absolute Nucleated RBC Immature Gran % Nucleated RBC % VBG pH 7.52 VBG pCO2 47 D VBG pO2 40 VBG O2 Sat (Kathy) 80 L VBG Base Excess 14 H Sodium Potassium Chloride Carbon Dioxide Anion Gap BUN Creatinine Estim Creat Clear Calc eGFR BUN/Creatinine Ratio Glucose Calculated Osmolality Lactic Acid 2.7 H Calcium Corrected Calcium Total Bilirubin AST ALT Alkaline Phosphatase Total Protein Albumin Globulin Albumin/Globulin Ratio Total T3 Digoxin ABG Interpretation ABG results: 03/30/24 04/01/24 04/01/24 13:55 10:25 17:20 ABG pH 7.48 H 7.52 H 7.47 H ABG pCO2 34 31 L 34 ABG pO2 300 H 155 H D 36 L* D ABG HCO3 25 25 25 ABG O2 Saturation 100 H 100 H 70 L ABG Base Excess 2 3 1 VBG pH VBG pCO2 VBG pO2 VBG Base Excess 04/04/24 04/11/24 04/12/24 13:52 11:50 02:45 ABG pH ABG pCO2 ABG pO2 ABG HCO3 ABG O2 Saturation ABG Base Excess VBG pH 7.43 7.46 7.55 VBG pCO2 19 L 41 35 L VBG pO2 136 H 35 33 VBG Base Excess -10 L 5 H 8 H 04/13/24 04/13/24 04/14/24 12:58 15:30 05:45 ABG pH ABG pCO2 ABG pO2 ABG HCO3 ABG O2 Saturation ABG Base Excess VBG pH 7.48 7.54 7.55 VBG pCO2 42 37 37 VBG pO2 46 41 32 VBG Base Excess 7 H 8 H 10 H 04/16/24 09:30 ABG pH ABG pCO2 ABG pO2 ABG HCO3 ABG O2 Saturation ABG Base Excess VBG pH 7.52 VBG pCO2 47 D VBG pO2 40 VBG Base Excess 14 H Quality Measures Quality Measures sepsis Current suspected stage: ruled out Possible source: unknown Blood cultures ordered: completed in ED Antibiotic ordered: Yes Advance care planning discussed with:: patient Assessment & Plan Assessment Current Active Medications: Generic Name Dose Route Start Last Admin Trade Name Freq PRN Reason Stop Dose Admin Acetaminophen 650 mg 03/30/24 16:17 Acetaminophen 325 Mg Tablet PO 04/29/24 16:16 Q6H PRN Fever >101.5 Acetaminophen 650 mg 03/30/24 16:17 04/16/24 09:51 Acetaminophen 325 Mg Tablet PO 04/29/24 16:16 650 mg Q6H PRN Administration PAIN SCALE 1-3 (mild Aspirin 81 mg 04/06/24 07:35 04/16/24 08:07 Aspirin 81 Mg Chew NG 05/01/24 18:44 81 mg QDAY ROGER Administration Atorvastatin Calcium 80 mg 04/06/24 07:35 04/15/24 21:08 Atorvastatin Calcium 20 Mg Tablet NG 05/01/24 20:59 80 mg HS ROGER Administration Calcium Carbonate 600 mg 04/03/24 09:45 04/16/24 08:06 Calcium Carbonate 600 Mg Tablet NG 05/03/24 09:44 600 mg QDAY ROGER Administration Dextrose 25 ml 03/30/24 16:22 04/01/24 04:58 Dextrose 50%-Water Inj 50 Ml Syringe IV 04/29/24 16:21 25 ml Q15MIN PRN Administration BG 50-70 responsive npo pt Dextrose 50 ml 03/30/24 16:22 Dextrose 50%-Water Inj 50 Ml Syringe IV 04/29/24 16:21 Q15MIN PRN BG <50 OR BG <70 & pt unresponsive Digoxin 0.125 mg 04/11/24 15:45 04/16/24 08:20 Digoxin Inj 0.25 Mg/Ml Amp 2 Ml IVP 05/11/24 15:44 0.125 mg QDAY ROGER Administration Enoxaparin Sodium 40 mg 04/04/24 09:00 04/16/24 08:30 Enoxaparin Sod Inj 40 Mg/0.4 Ml Syringe SC 04/18/24 08:59 40 mg QDAY ROGER Administration Ferrous Sulfate 300 mg 04/13/24 08:00 04/16/24 07:29 Ferrous Sulfate 300 Mg/5 Ml Udc PO 05/13/24 07:59 300 mg WBR ROGER Administration Folic Acid 1 mg 03/30/24 16:45 04/16/24 08:05 Folic Acid Inj 1 Mg/0.2 Ml IVP 04/29/24 16:44 1 mg QDAY ROGER Administration Furosemide 20 mg 04/15/24 10:30 04/16/24 08:19 Furosemide Inj 10 Mg/Ml 4ml Vial IVP 05/15/24 10:29 20 mg BID ROGER Administration Glucagon 1 mg 03/30/24 16:22 Glucagon Inj 1 Mg Vial IM Q15MIN PRN BG <70, and no IV access Hydrocortisone Sodium Succinate 100 mg 04/13/24 14:00 04/16/24 05:11 Hydrocortisone Sod Succ Inj 100 Mg Vial IV 05/13/24 13:59 100 mg Q8HR ROGER Administration Piperacillin/Tazobactam/Dextrose 3.375 gm in 50 mls @ 12.5 mls/hr 04/10/24 06:00 04/16/24 11:11 Zosyn IV 04/17/24 05:59 Infused Q8HR ROGER Infusion Norepinephrine Bitartrate 16 mg in 250 mls @ 1.866 mls/hr 04/16/24 10:06 Levophed In Ns 16mg/250ml IV 05/16/24 10:05 .Q24H PRN PER protocol Protocol 0.05 MCG/KG/MIN Lactated Ringer's 500 mls @ 125 mls/hr 04/16/24 11:30 04/16/24 11:37 Lactated Ringers IV 04/16/24 15:29 125 mls/hr .Q4H ONE Administration Insulin Human Lispro 0 unit 03/30/24 17:00 04/16/24 11:32 Insulin Lispro (Admelog) 1 Unit/0.01 Ml Unit SC 04/29/24 16:59 Not Given Q6HR [facility] Protocol Levothyroxine Sodium 75 mcg 04/17/24 06:00 Levothyroxine Sodium 25 Mcg Tablet GT 05/17/24 05:59 ACBR ROGER Magnesium Oxide 400 mg 04/10/24 09:00 04/16/24 08:06 Magnesium Oxide 400 Mg Tablet GT 05/11/24 15:00 400 mg BID ROGER Administration Midodrine 15 mg 04/16/24 14:00 Midodrine 5 Mg Tablet NG 05/16/24 13:59 TID ROGER Multivitamins/Minerals 15 ml 04/05/24 16:45 04/16/24 08:05 Multivitamin 15 Ml Udc GT 05/05/24 16:44 15 ml QDAY ROGER Administration Ondansetron HCl 4 mg 03/30/24 16:17 Ondansetron Inj 2 Mg/Ml Inj 2 Ml IV 04/29/24 16:16 Q6H PRN NAUSEA OR VOMITING Protocol Pantoprazole Sodium 40 mg 03/30/24 16:30 04/16/24 08:11 Pantoprazole Inj 40 Mg Vial IVP 04/29/24 16:29 40 mg QDAY ROGER Administration Polyethylene Glycol 17 gm 04/10/24 09:00 04/16/24 08:11 Polyethylene Glycol 17 Gm Packet PO 05/10/24 08:59 17 gm QDAY ROGER Administration Potassium Phos/Sodium Phos 1 packet 04/16/24 09:00 04/16/24 08:06 Naph,[facility] Mbdb 1 Packet (1.5 Gm) PO 04/21/24 08:59 1 packet BID ROGER Administration Sennosides 8.8 mg 04/06/24 17:33 04/07/24 08:03 Sennosides Syrup 8.8 Mg/5 Ml Udc NG 05/06/24 17:32 8.8 mg QDAY PRN Administration CONSTIPATION Protocol Thiamine HCl 100 mg 03/30/24 16:45 04/16/24 08:05 Thiamine Inj 100 Mg/Ml Vial 2 Ml IVP 04/29/24 16:44 100 mg QDAY ROGER Administration Plan 79 yo female with PMH of 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 Per daughter patient has been aphasic since last stroke, however she was able to walk with a walker and eat by herself until aproximately 2 months ago where she started progressively declining, decreasing oral intake, less active. The day of admission around 3am patient was found by daughter unresponsive and called EMS. On arrival patient was found with GCS of 3 glucose measured was 13, she was given D10 and repeat BS was 96. #Acute metabolic encephalopathy, -Likely in the setting of hypoglycemia and sepsis. -Head CT was negative for Negative for acute hemorrhage, mass effect or midline shift. Head/Neck CTA showed 90% plus stenosis right carotid bifurcation proximal right internal carotid artery, No cerebral large vessel arterial occlusions. -MRI brain confirmed no acute infarction, prominent moderate chronic white matter changes. -Echocardiogram:Negative bubble study. -patient prognosis is poor #90%right stenosis internal carotid Patient not candidate for endarterectomy - start dual antiplatelet after PEG tube placement -Continue atorvastatin Patient has poor prognosis Patient's care discussed with attending physician, Dr Oumou Em MD PGY3 Attending Provider Attestation/Addendum Patient was seen and examined at the bedside and agreed with resident's findings, assessment and plan of care.
[2024-04-16 12:36] LABS: Reflex Lactate? Y
[2024-04-16 12:57] LABS: Lactic Acid, 3 HR 2.7 mMol/L (0.4-2.0)
[2024-04-16] MEDS: MIDODRINE 5 MG TABLET 15 MG NG (13:49)
[2024-04-16] MEDS: DOPamine/D5w 400 MG IVPB 400 MG/250 ML BAG 7.463 MG IV (14:14)
--- NOTE | 2024-04-16 15:39 | PC.SS ---
PICK PACK WORKER informed by resident that patient's family has decided to transition the patient to hospice services. PICK PACK WORKER confirmed hospice plan with patient's daughter, Tamia Rudd. Plan is to transition the patient home with hospice services. No preferred provider identified. PICK PACK WORKER to submit referral on [facility]. [place] [facility] on rotation for today.
--- NOTE | 2024-04-16 15:47 | PC.SS ---
Hospice referral submitted on [facility]. Response pending.
[2024-04-16 16:20] LABS: Base Excess, Venous 16 (-3-3); O2 Saturation, Venous 72 % (96-97); PCO2, Venous 48 mmHg (36-56); PO2, Venous 36 mmHg (15-58); pH, Venous 7.53 (7.33-7.66)
[2024-04-16 16:22] LABS: Lactate (Lactic Acid) 1.4 mMol/L (0.4-2.0)
--- NOTE | 2024-04-16 17:36 | PD.SURCONS ---
HPI Consult details Consult date: 04/16/24 Reason for consultation narrative: The patient was seen in consultation because free air under the diaphragm History of present illness: Patient has been in ICU and recently they found a free air under the diaphragm on a routine chest x-ray. Subsequently CT scan confirmed it. Patient is not responding much and does not seem to be in pain. She has had numerous medical problems for which she has been in the hospital and she was made a DNR and it was decided to keep her on hospice Meds Home Medications and Allergies Home Medications ?Medication ?Instructions ?Recorded ?Confirmed ?Type ascorbic acid (vitamin C) 1,000 mg 1,000 mg PO DAILY 03/31/24 03/31/24 History tablet atorvastatin 40 mg tablet 40 mg PO HS 03/31/24 03/31/24 History cholecalciferol (vitamin D3) 25 25 mcg PO DAILY 03/31/24 03/31/24 History mcg (1,000 unit) capsule cyanocobalamin (vitamin B-12) 3,000 mcg PO DAILY 03/31/24 03/31/24 History 1,000 mcg tablet glyburide 5 mg tablet 5 mg PO DAILY 03/31/24 03/31/24 History levothyroxine 50 mcg tablet 50 mcg PO HANNAH 03/31/24 03/31/24 History metformin 625 mg tablet 625 mg PO TID 03/31/24 03/31/24 History Allergies Allergy/AdvReac Type Severity Reaction Status Date / Time No Known Allergies Allergy Verified 03/30/24 14:19 Exam Vital Signs Temp Pulse Resp BP Pulse Ox O2 Del Method O2 Flow Rate 97.3 F 71 13 125/57 L 91 L Nasal Cannula 2 04/16/24 16:00 04/16/24 17:00 04/16/24 17:00 04/16/24 17:00 04/16/24 17:00 04/16/24 17:00 04/16/24 17:00 FiO2 2 04/10/24 09:00 Narrative Exam Her vital signs are normal and it is maintained by dopamine Routine Abdominal Exam Comments: Abdomen is scaphoid and benign. There is a PEG tube placed recently and she is tolerating the diet Results Results: Imaging Imaging narrative: I reviewed the chest x-ray and the CT scan which definitely shows free air Assessment & Plan Additional Assessment Additional comments: Impression: Pneumoperitoneum of unknown origin Plan Plan: Patient is not a candidate for exploration or any further workup. She is a DNR and is planning to have a hospice on therefore I suggest no further intervention. Thank you
--- NOTE | 2024-04-16 18:11 | ESPR_ITS ---
Documentation for date of: 04/16/24 Subjective Subjective Interval history: CT scan of the abdomen pelvis shows extensive pneumoperitoneum Abdomen soft nontender active bowel sounds and has no findings of acute abdomen Case discussed with the hand frame surgical elastic knitter No need for surgical intervention at this time Exam Vital Signs Temp Pulse Resp BP Pulse Ox O2 Del Method O2 Flow Rate 97.3 F 70 15 131/55 H 93 L Nasal Cannula 2 04/16/24 16:00 04/16/24 18:00 04/16/24 18:00 04/16/24 18:00 04/16/24 18:00 04/16/24 18:00 04/16/24 18:00 FiO2 2 04/10/24 09:00 Constitutional Comments: Chronically ill-appearing Routine Respiratory Exam Comments: Normal to auscultation Routine Abdominal Exam Comments: Soft nontender active bowel sounds and no distention Objective Labs 04/16/24 05:05 04/16/24 05:05 Labs: Laboratory Results - last 24 hr 04/11/24 04/15/24 04/16/24 10:00 18:44 05:05 WBC 19.8 H D RBC 3.05 L Hgb 9.2 L Hct 28.2 L MCV 93 MCH 30.2 MCHC 32.6 RDW Std Deviation 49.7 H Plt Count 163 Neut % (Auto) 96 H Lymph % (Auto) 2 L Alpine % (Auto) 1 Eos % (Auto) 0 Baso % (Auto) 0 Neut # (Auto) 19.0 H Lymph # (Auto) 0.4 L Alpine # (Auto) 0.3 Eos # (Auto) 0.0 Baso # (Auto) 0.0 Immature Gran # (Auto) 0.11 H Absolute Nucleated RBC 0.00 Immature Gran % 1 H Nucleated RBC % 0 VBG pH VBG pCO2 VBG pO2 VBG O2 Sat (Kathy) VBG Base Excess Sodium 140 139 Potassium 2.9 L D 2.8 L Chloride 98 95 L Carbon Dioxide 35.3 H 37.1 H Anion Gap 7 7 BUN 21 22 Creatinine 0.6 0.5 L Estim Creat Clear Calc 47.1 L 56.5 L eGFR > 60 > 60 BUN/Creatinine Ratio 35 H 44 H Glucose 181 H D 201 H Calculated Osmolality 287 286 Lactic Acid Calcium 8.7 8.7 Corrected Calcium 9.1 Total Bilirubin 0.4 AST 26 ALT 15 Alkaline Phosphatase 139 H Total Protein 5.9 Albumin 3.5 Globulin 2.4 Albumin/Globulin Ratio 1.5 Total T3 <25 L Digoxin 0.8 04/16/24 04/16/24 04/16/24 09:30 12:40 16:12 WBC RBC Hgb Hct MCV MCH MCHC RDW Std Deviation Plt Count Neut % (Auto) Lymph % (Auto) Alpine % (Auto) Eos % (Auto) Baso % (Auto) Neut # (Auto) Lymph # (Auto) Alpine # (Auto) Eos # (Auto) Baso # (Auto) Immature Gran # (Auto) Absolute Nucleated RBC Immature Gran % Nucleated RBC % VBG pH 7.52 7.53 VBG pCO2 47 D 48 VBG pO2 40 36 VBG O2 Sat (Kathy) 80 L 72 L VBG Base Excess 14 H 16 H Sodium Potassium Chloride Carbon Dioxide Anion Gap BUN Creatinine Estim Creat Clear Calc eGFR BUN/Creatinine Ratio Glucose Calculated Osmolality Lactic Acid 2.7 H 2.7 H 1.4 Calcium Corrected Calcium Total Bilirubin AST ALT Alkaline Phosphatase Total Protein Albumin Globulin Albumin/Globulin Ratio Total T3 Digoxin Impressions Impression: # Pneumoperitoneum with a benign abdomen it may be related to the placement of a gastrostomy tube that was almost 10 days ago Or it could be sealed off perforation from an abdominal viscus which is unlikely because of the benign nature of the abdominal examination No need for surgical intervention ABG Interpretation ABG results: 03/30/24 04/01/24 04/01/24 13:55 10:25 17:20 ABG pH 7.48 H 7.52 H 7.47 H ABG pCO2 34 31 L 34 ABG pO2 300 H 155 H D 36 L* D ABG HCO3 25 25 25 ABG O2 Saturation 100 H 100 H 70 L ABG Base Excess 2 3 1 VBG pH VBG pCO2 VBG pO2 VBG Base Excess 04/04/24 04/11/24 04/12/24 13:52 11:50 02:45 ABG pH ABG pCO2 ABG pO2 ABG HCO3 ABG O2 Saturation ABG Base Excess VBG pH 7.43 7.46 7.55 VBG pCO2 19 L 41 35 L VBG pO2 136 H 35 33 VBG Base Excess -10 L 5 H 8 H 04/13/24 04/13/24 04/14/24 12:58 15:30 05:45 ABG pH ABG pCO2 ABG pO2 ABG HCO3 ABG O2 Saturation ABG Base Excess VBG pH 7.48 7.54 7.55 VBG pCO2 42 37 37 VBG pO2 46 41 32 VBG Base Excess 7 H 8 H 10 H 04/16/24 04/16/24 09:30 16:12 ABG pH ABG pCO2 ABG pO2 ABG HCO3 ABG O2 Saturation ABG Base Excess VBG pH 7.52 7.53 VBG pCO2 47 D 48 VBG pO2 40 36 VBG Base Excess 14 H 16 H Assessment & Plan A&P Narrative 79-year-old female with past medical history of hypertension, hyperlipidemia, 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 1. Acute decompensated systolic heart failure (EF 45 to 50%) 2. NSTEMI 3. Essential hypertension ?Given patient's elevated troponins which peaked at 1.033 and down trended this is most likely NSTEMI type II likely demand ischemia ?Given patient is a poor candidate for heart catheterization at this time due to other comorbidities we will treat medically for now ?Patient's blood pressure has been under control during her hospital stay. ?Echo done on 03/31/2024 has had the following findings: Negative bubble study. TTE is suboptimal to rule out PFO or ASD. Consider GLORIA if high clincial suspicion. Normal LV size. Moderate to severe LV systolic dysfunction with an EF of around 35 to 40%.Severe hypokinesis of the mid to apical septum, apical anterior and apical anterolateral segments and akinetic apex indicating possible LAD involvement versus Takotsubo syndrome. Difficult to comment on apical thrombus due to lack of definity. Normal RV size and function. Mild TR Moderate MAC. Mild MR Mild AV sclerosis without stenosis with mild AI. ?Patient most likely has some underlying CAD, but given multiple comorbidities and current clinical status she is not a good candidate for heart catheterization and family is aware of this and are in agreement. ? 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 Should be attributed medically for now. -Echo on 04/05/2024 had the following findings: Normal left ventricular size, wall thickness. Low normal systolic function. Estimated 45-50%. RV is normal in size and systolic function. The estimated RVSP, 34 mmHg. RAP 5. Moderate MAC. Mild to moderate MR. Mild sclerosis without stenosis. Mild AI. -Findings showed significant improvement, but was on pressors and could indicate possible Takotsubo syndrome which could be possibly secondary to the sepsis Plan: ?Recommend to hold off on goal-directed medical therapy with beta-devon, Entresto as well as spironolactone as patient is still hypotensive and requiring increase of vasopressor. -can start patient in oral diuresis if BP allows and patient becomes fluid overloaded. ?Patient should also be on aspirin and statin ?No need to trend troponins 04/13/2024: Patient's TSH was 20.58 as well as free T4 was 0.467 during this admission and patient is only oral thyroxine and was given additional loading dose of levothyroxine 20 mcg IV along with some hydrocortisone. Patient started on treatment for hypothyroidism based on her clinical picture and was tapered off vasopressors yesterday Patient developed fever and some cough and is on IV antibiotics and started on pressors again and is only on vasopressin during my visit today. Heart rate is well-controlled and patient still continues to be in atrial fibrillation but rate well-controlled. Hemoglobin better after the transfusions. Patient did receive digoxin but is on hold as the patient is hypokalemic. Telemetry shows intermittent A-fib Continue to monitor telemetry closely Continue midodrine 10 mg 3 times a day. Continue to monitor in ICU for another 24 hours before she can be transferred out if hemodynamically stable and does not require pressors anymore 4. Acute encephalopathy 5. Hypoglycemia 6. DM2 ?Patient has been taking glyburide 5 mg as well as metformin 625 mg 3 times daily which could have precipitated his patient hypoglycemia in the event that she has been having poor oral intake. ? Continue current management as per primary care team 7. Failure to thrive ?Patient may benefit from PEG tube placement as she has been having poor oral intake for the past few weeks. ? Recommend to follow GI recommendations ? Continue current management as per primary care team 8. CVA with residual right-sided deficits 9. Hyperlipidemia ? Continue current management as primary care team Management of rest of the medical conditions as per primary team and other consultants. Thank you for the consult and allowing me to participate in the care of the patient. Cardiology will continue to follow. Rao Dodson M.D. Interventional Cardiology Time Spent With Patient Time: Total time spent is greater than 50% in coordination of care (as documented) at patient's floor/unit and/or counseling patient:
--- NOTE | 2024-04-16 18:13 | ESPR_ITS ---
Documentation for date of: 04/16/24 Subjective Subjective Interval history: 04/12: Overnight patient had 2.5 L of urine output and no other overnight events. Patient is still on pressor support, Levophed was off for several hours but MAP dropped below 65 and Levophed was restarted. Patient's cough is resolved and remains afebrile. Patient is saturating on room air. VBG today are stable. Will continue to closely monitor electrolytes and fluid net negative and will replete electrolytes as needed. BNP is 1035. Since patient was started on digoxin on 04/11/2024 will check digoxin levels in about 6 days after initiating therapy. 04/13: Overnight patient had 1.6 L of urine output and no other overnight events patient remains afebrile and cough has resolved. Patient is awake and can follow commands but she appears very lethargic, she is saturating on room air.. Currently patient is net negative of 2655. Patient was able to come off of pressor support mid afternoon and was producing 60 cc of urine per hour when she was off of pressor support. Based on her lactic acid of 2.3 and VBG findings of pH 7.54 CO2 37 O2 41 O2 saturation 81% when she was off of pressor the MAP goal is above 60%. If patient drops MAP below 60 then we will start Levophed. Will hold diuretics for now as patient diuresed really well and electrolytes are all repleted. Will continue to closely monitor patient's labs and will repeat BMP and x-ray tomorrow. Patient's current weight is 41.3 kg. 04/14: overnight pt had 1.1 L of urine output and large bowel movement. Due to MAP in the 40's levophed was started by the overnight team. This morning because Pt. didn't receive lasix her urine output decreased and Pt. was switched from levophed to dopamine. We are using dopamine renal perfusion. Lasix BID is resumed. Pts VBG is stable and lactic acid down trended to 1.6 and BNP is 1492. Pts. weight today is 41.7. will closely monitor eletrolytes and replete as needed. Pt developed a productive cough overnigh and this morning repeat chest xray show large pleural effusion on the left lung causing hydrothorax. Will have to discuss with family possible thoracenthesis. Pt may need LTACH placement as pt. may need to be on either levophed or dopamine drip to maintain kidney perfusion. 04/15: no acute overnight events. Pt had 400ml of urine output overnight. Pt is seen and examined at bedside, resting comfortable and saturation at 96% on 2L of NC. repeat chest xray this morning show improvement of plural effsuions. Pt is continued on dopamine drip for renal perfusion. Currently pt is net negative of 2418 and the goal today is net even. will transition IV thyroxine to PO after 5 days of IV and will taper down steroids once pt is off of dopamine. Pt's family is made aware of Pt. prognosis and requirement of LTACH. Pt cough is resolved and denies any pain. 04/16: no acute overnight events.Chest X-ray today found to have free air under the diaphragm and CT scan ordered [facility] confirmed pneumoperitoneum. However, Pt is not in distress and does not complain of abdominal pain. The PEG tube in in place. General surgery is consulted and per surgery she is not a candidate for ex lap due to multiple comorbities that would limit the pt.s abililty to stay stable during surgery. Pts. daughter have decided to take pt. home with hospice when she is stable to be discharged. she expressed she does not want her mom to in the hospital. she would like to take her home and spend quality time so she can be happy in a place where her extended family can visit. Hospice referral is palced and social working Hank has set her up with hospice referral. Per Dr. Richard, he recommends increasing dose of midodrine to 15mg TId to help increase the BP. VBG is stable and lactic acid is 1.4. Exam Vital Signs Temp Pulse Resp BP Pulse Ox O2 Del Method O2 Flow Rate 97.3 F 70 15 131/55 H 93 L Nasal Cannula 2 04/16/24 16:00 04/16/24 18:00 04/16/24 18:00 04/16/24 18:00 04/16/24 18:00 04/16/24 18:00 04/16/24 18:00 FiO2 2 04/10/24 09:00 Narrative Exam GENERAL: Awake, elderly thin female, Not in acute distress, non verbal but is able to follow command NEURO: alert, motor deficit in the right and upper and lower extremities HEENT: Atraumatic, Normocephalic. mucous membranes moist. Eyes open, symmetrical, & clear HEART: Faint Heart Sounds LUNGS: Clear breath sounds bilaterally ABDOMEN: soft, non-distended, non-tender, bowel sounds heard, no guarding or rebound tenderness, PEG tube in place SKIN: 2 sacral ulcers, smaller one appears to be stage 2 and larger one appears to be stage 3 EXTREMITIES: trace non- pitting edema bilaterally on UE, non pitting edema on lower extremity, pedal pulses palpated, contracted lower extremities Objective Labs 04/17/24 09:24 04/17/24 09:24 Labs: Laboratory Results - last 24 hr 04/11/24 04/15/24 04/16/24 10:00 18:44 05:05 WBC 19.8 H D RBC 3.05 L Hgb 9.2 L Hct 28.2 L MCV 93 MCH 30.2 MCHC 32.6 RDW Std Deviation 49.7 H Plt Count 163 Neut % (Auto) 96 H Lymph % (Auto) 2 L [place] % (Auto) 1 Eos % (Auto) 0 Baso % (Auto) 0 Neut # (Auto) 19.0 H Lymph # (Auto) 0.4 L [place] # (Auto) 0.3 Eos # (Auto) 0.0 Baso # (Auto) 0.0 Immature Gran # (Auto) 0.11 H Absolute Nucleated RBC 0.00 Immature Gran % 1 H Nucleated RBC % 0 VBG pH VBG pCO2 VBG pO2 VBG O2 Sat (Kathy) VBG Base Excess Sodium 140 139 Potassium 2.9 L D 2.8 L Chloride 98 95 L Carbon Dioxide 35.3 H 37.1 H Anion Gap 7 7 BUN 21 22 Creatinine 0.6 0.5 L Estim Creat Clear Calc 47.1 L 56.5 L eGFR > 60 > 60 BUN/Creatinine Ratio 35 H 44 H Glucose 181 H D 201 H Calculated Osmolality 287 286 Lactic Acid Calcium 8.7 8.7 Corrected Calcium 9.1 Total Bilirubin 0.4 AST 26 ALT 15 Alkaline Phosphatase 139 H Total Protein 5.9 Albumin 3.5 Globulin 2.4 Albumin/Globulin Ratio 1.5 Total T3 <25 L Digoxin 0.8 04/16/24 04/16/24 04/16/24 09:30 12:40 16:12 WBC RBC Hgb Hct MCV MCH MCHC RDW Std Deviation Plt Count Neut % (Auto) Lymph % (Auto) [place] % (Auto) Eos % (Auto) Baso % (Auto) Neut # (Auto) Lymph # (Auto) [place] # (Auto) Eos # (Auto) Baso # (Auto) Immature Gran # (Auto) Absolute Nucleated RBC Immature Gran % Nucleated RBC % VBG pH 7.52 7.53 VBG pCO2 47 D 48 VBG pO2 40 36 VBG O2 Sat (Kathy) 80 L 72 L VBG Base Excess 14 H 16 H Sodium Potassium Chloride Carbon Dioxide Anion Gap BUN Creatinine Estim Creat Clear Calc eGFR BUN/Creatinine Ratio Glucose Calculated Osmolality Lactic Acid 2.7 H 2.7 H 1.4 Calcium Corrected Calcium Total Bilirubin AST ALT Alkaline Phosphatase Total Protein Albumin Globulin Albumin/Globulin Ratio Total T3 Digoxin ABG Interpretation ABG results: 03/30/24 04/01/24 04/01/24 13:55 10:25 17:20 ABG pH 7.48 H 7.52 H 7.47 H ABG pCO2 34 31 L 34 ABG pO2 300 H 155 H D 36 L* D ABG HCO3 25 25 25 ABG O2 Saturation 100 H 100 H 70 L ABG Base Excess 2 3 1 VBG pH VBG pCO2 VBG pO2 VBG Base Excess 04/04/24 04/11/24 04/12/24 13:52 11:50 02:45 ABG pH ABG pCO2 ABG pO2 ABG HCO3 ABG O2 Saturation ABG Base Excess VBG pH 7.43 7.46 7.55 VBG pCO2 19 L 41 35 L VBG pO2 136 H 35 33 VBG Base Excess -10 L 5 H 8 H 04/13/24 04/13/24 04/14/24 12:58 15:30 05:45 ABG pH ABG pCO2 ABG pO2 ABG HCO3 ABG O2 Saturation ABG Base Excess VBG pH 7.48 7.54 7.55 VBG pCO2 42 37 37 VBG pO2 46 41 32 VBG Base Excess 7 H 8 H 10 H 04/16/24 04/16/24 09:30 16:12 ABG pH ABG pCO2 ABG pO2 ABG HCO3 ABG O2 Saturation ABG Base Excess VBG pH 7.52 7.53 VBG pCO2 47 D 48 VBG pO2 40 36 VBG Base Excess 14 H 16 H Quality Measures Quality Measures sepsis Current suspected stage: ruled out Possible source: unknown Blood cultures ordered: completed in ED Antibiotic ordered: Yes Advance care planning discussed with:: child Assessment & Plan Assessment Current Active Medications: Generic Name Dose Route Start Last Admin Trade Name Freq PRN Reason Stop Dose Admin Acetaminophen 650 mg 03/30/24 16:17 Acetaminophen 325 Mg Tablet PO 04/29/24 16:16 Q6H PRN Fever >101.5 Acetaminophen 650 mg 03/30/24 16:17 04/16/24 09:51 Acetaminophen 325 Mg Tablet PO 04/29/24 16:16 650 mg Q6H PRN Administration PAIN SCALE 1-3 (mild Aspirin 81 mg 04/06/24 07:35 04/16/24 08:07 Aspirin 81 Mg Chew NG 05/01/24 18:44 81 mg QDAY ROGER Administration Atorvastatin Calcium 80 mg 04/06/24 07:35 04/15/24 21:08 Atorvastatin Calcium 20 Mg Tablet NG 05/01/24 20:59 80 mg HS ROGER Administration Calcium Carbonate 600 mg 04/03/24 09:45 04/16/24 08:06 Calcium Carbonate 600 Mg Tablet NG 05/03/24 09:44 600 mg QDAY ROGER Administration Dextrose 25 ml 03/30/24 16:22 04/01/24 04:58 Dextrose 50%-Water Inj 50 Ml Syringe IV 04/29/24 16:21 25 ml Q15MIN PRN Administration BG 50-70 responsive npo pt Dextrose 50 ml 03/30/24 16:22 Dextrose 50%-Water Inj 50 Ml Syringe IV 04/29/24 16:21 Q15MIN PRN BG <50 OR BG <70 & pt unresponsive Digoxin 0.125 mg 04/11/24 15:45 04/16/24 08:20 Digoxin Inj 0.25 Mg/Ml Amp 2 Ml IVP 05/11/24 15:44 0.125 mg QDAY ROGER Administration Enoxaparin Sodium 40 mg 04/04/24 09:00 04/16/24 08:30 Enoxaparin Sod Inj 40 Mg/0.4 Ml Syringe SC 04/18/24 08:59 40 mg QDAY ROGER Administration Ferrous Sulfate 300 mg 04/13/24 08:00 04/16/24 07:29 Ferrous Sulfate 300 Mg/5 Ml Udc PO 05/13/24 07:59 300 mg WBR ROGER Administration Folic Acid 1 mg 03/30/24 16:45 04/16/24 08:05 Folic Acid Inj 1 Mg/0.2 Ml IVP 04/29/24 16:44 1 mg QDAY ROGER Administration Furosemide 20 mg 04/15/24 10:30 04/16/24 08:19 Furosemide Inj 10 Mg/Ml 4ml Vial IVP 05/15/24 10:29 20 mg BID ROGER Administration Glucagon 1 mg 03/30/24 16:22 Glucagon Inj 1 Mg Vial IM Q15MIN PRN BG <70, and no IV access Hydrocortisone Sodium Succinate 100 mg 04/13/24 14:00 04/16/24 13:49 Hydrocortisone Sod Succ Inj 100 Mg Vial IV 05/13/24 13:59 100 mg Q8HR ROGER Administration Piperacillin/Tazobactam/Dextrose 3.375 gm in 50 mls @ 12.5 mls/hr 04/10/24 06:00 04/16/24 17:52 Zosyn IV 04/17/24 05:59 Infused Q8HR ROGER Infusion Norepinephrine Bitartrate 16 mg in 250 mls @ 1.866 mls/hr 04/16/24 10:06 Levophed In Ns 16mg/250ml IV 05/16/24 10:05 .Q24H PRN PER protocol Protocol 0.05 MCG/KG/MIN Dopamine HCl/Dextrose 400 mg in 250 mls @ 7.463 mls/hr 04/16/24 13:47 04/16/24 16:00 Intropin In D5w Ivpb IV 05/16/24 13:46 5 mcg/kg/min .Q24H ROGER 7.463 mls/hr Titration Protocol 5 MCG/KG/MIN Insulin Human Lispro 0 unit 03/30/24 17:00 04/16/24 17:49 Insulin Lispro (Admelog) 1 Unit/0.01 Ml Unit SC 04/29/24 16:59 3 unit Q6HR ROGER Administration Protocol Levothyroxine Sodium 75 mcg 04/17/24 06:00 Levothyroxine Sodium 25 Mcg Tablet GT 05/17/24 05:59 ACBR ROGER Magnesium Oxide 400 mg 04/10/24 09:00 04/16/24 08:06 Magnesium Oxide 400 Mg Tablet GT 05/11/24 15:00 400 mg BID ROGER Administration Midodrine 15 mg 04/16/24 14:00 04/16/24 13:49 Midodrine 5 Mg Tablet NG 05/16/24 13:59 15 mg TID ROGER Administration Multivitamins/Minerals 15 ml 04/05/24 16:45 04/16/24 08:05 Multivitamin 15 Ml Udc GT 05/05/24 16:44 15 ml QDAY ROGER Administration Ondansetron HCl 4 mg 03/30/24 16:17 Ondansetron Inj 2 Mg/Ml Inj 2 Ml IV 04/29/24 16:16 Q6H PRN NAUSEA OR VOMITING Protocol Pantoprazole Sodium 40 mg 03/30/24 16:30 04/16/24 08:11 Pantoprazole Inj 40 Mg Vial IVP 04/29/24 16:29 40 mg QDAY ROGER Administration Polyethylene Glycol 17 gm 04/10/24 09:00 04/16/24 08:11 Polyethylene Glycol 17 Gm Packet PO 05/10/24 08:59 17 gm QDAY ROGER Administration Potassium Phos/Sodium Phos 1 packet 04/16/24 09:00 04/16/24 08:06 [facility] Mbdb 1 Packet (1.5 Gm) PO 04/21/24 08:59 1 packet BID ROGER Administration Sennosides 8.8 mg 04/06/24 17:33 04/07/24 08:03 Sennosides Syrup 8.8 Mg/5 Ml Udc NG 05/06/24 17:32 8.8 mg QDAY PRN Administration CONSTIPATION Protocol Thiamine HCl 100 mg 03/30/24 16:45 04/16/24 08:05 Thiamine Inj 100 Mg/Ml Vial 2 Ml IVP 04/29/24 16:44 100 mg QDAY ROGER Administration Plan Ms. 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 Per chart review and patient's daughter at bedside states patient have been declining physical activity for the past 2 months. She used to be able to walk herself to the restroom, feed herself, and walk around using walker and be able to communicate. But she has become increasingly depressed and bedbound for the last 1 week she has been having urinary incontinence and decreased oral intake. Patient was found unresponsive for which the family called ambulance. In the ED her blood glucose was found to be 13 she received D10 and her blood glucose improved and as well as her mentation. Patient was admitted to the hospital for possible PEG tube placement and treatment of bilateral pneumonia. On 04/02/2024 patient had a rapid response called for blood pressure of 75/44 maintaining MAP below 65 patient was given 1L bolus of normal saline without improvement of blood pressure and MAP; patient was upgraded to the ICU and Levophed was started. Neuro #History of CVA - Pt has a stroke in 2021 with residual deficit on the right side and global aphasia #Acute metabolic encephalopathy secondary to hypoglycemia -resolved -On admission patient's was altered with blood glucose was 13 and patient received D10 and her mentation improved to baseline -Patient's daughter have reported that for the past 2 months patient has become increasingly less physically active Cardio #Shock- resolved - septic shock? 05/23 to staph bacteremia has resolved 04/08 and then patient underwent PEG tube placement procedure requiring versed and became hypotensive and levophed was restarted. -on admission pts. BC on 03/30 showed staph bacteremia in 1 of the 2 cultures, Pt has been on antibiotics -started levophed started on 04/03- -midodrine 15mg TID -Dobutamine drip started on 04/04 and D/c'd on 04/05 -vasopressin started on 04/04 and titrating it down as able -repeat echo04/05- EF 45-50% and mild to moderate MR -Patient is off Levophed and vasopressin #Newly diagnosed CHF - improving DDx- takatsubo cardiomyopathy -Pt. may have developed takotsubo cardiomyopathy. Per Pt.'s daughter Tamia her (their father) sent her from [place] recently because he was unable to take care of her. And he does not communicate with her which has caused the Pt. to become increasingly withdrawn and poor oral intake. Patient also lost her grandson that she raised approximately a year ago. -EF 35-40 on echo 03/31 --> repeat echo 04/05 EF 45-50% and mild to moderate MR -In light of shock, will hold guideline directed medical therapy and will resume when able -resumed Lasix will continue to monitor electrolytes and replete as needed -digoxin (started 04/11) levels are 0.8 -Continue to closely monitor ins and outs - Dopamine drip is started for renal perfusion #Hx HTN - home meds on hold # Hx. HLD - resumed home atorvastatin #Troponinemia- resolved -on admission ? peaked at 1.033, without ST or T wave changes on EKG Pul #Pleural effusions # Aspiration pneumonia likely in the setting of dysphagia -Repeat chest x-ray showed worsening left side pneumonia and pleural effusions -bedside ultrasound showed significant pleural effusions causing left hydrothorax - patient is on sufficient coverage with antibiotics -D/c Azithro 04/02-04/07 -Patient is on Rocephin 04/02- 04/08 -D/C vancomycin due to MRSA negative -Patient is started on Zosyn on 04/10- (continue for 7 days course for aspiration pneumonia) -Pleural effusions are improved on repeat chest xrays on 04/15, will continue to monitor ID #Pneumonia #Bacteremia #leukocytosis -Blood cultures on 03/30/2024-grew Staph aureus on 1 of 2 -Blood cultures since then, urine cultures and MRSA - negative -Repeat chest x-ray 04/06/2024 showed worsening pneumonia Pts is found to have leukocytosis likely reactive in the setting of procedure. Pt remains afebrile, will continue to monitor closely and if she develops a fever with increasing WBC, then will consider BC at that time. -On antibiotics Zosyn -repeat blood cultures from 04/05 prelim no growth GI #pneumoperitoneum -Chest xray 04/16 show -free air beneath the right hemidiaphragm -CT abdomen/pelvis show - Extensive pneumoperitoneum, Suspicious for air droplets in the wall of both small bowel and rectum, -General Sugery consulted- per surgery, Patient is not a candidate for exploration or any further workup -Pts daughter would like to take her mom home on hospice and arrangements and referrals are made #Severe Malnutrition -Failure to thrive- patient's BMI is <22 and age >70 -Per patient's daughter, patient has poor oral intake and for 2 months was hiding food under the couch and bed and they often have to feed her with a syringe -likely secondary to poor oral intake -Per Telephone Service Representative recommendations- Glucerna 1.2 at 40 ml/hr, Thiamine 100mg/day for 7 days, Multivitamins ordered # PEG tube - resume tube feeds at 40cc with no water flush #Hypoalbuminemia - likely secondary to nutritional deficiency -Will continue to treat underlying cause by giving adequate nutrition Endo #History of type 2 diabetes -Hemoglobin A1c on 03/31 is 6.1, blood glucose 247 -Insulin sliding scale ordered #History of hypothyroidism #Severe hypothyroidism -TSH 20.58, free T4 0.67 during this admission -Continue levothyroxine 75 mcg IV daily, will transition to PO levothyroxine 75mcg after 5 days of IV Renal # Hypokalemia -Likely in the setting of diuresing -Repleted potassium Heme #Acute anemia - stable -Hemoglobin 9.2 and hematocrit 28 -no signs of active bleeding -will continue to monitor -will transfuse again with pRBCs if Hgb <7 DVT prophylaxis-Lovenox Skin #Sacral ulcer -Patient has 2 ulcers in the sacrum -Smaller 1 appears to be stage II and the bigger one appears to be stage III -Frequent pressure redistribution -Wound care is ordered Disposition: ICU for pressor support DVT Prophylaxis: enoxaparin 40mg Qdaily GI Prophylaxis: Pantoprozol-40 IV Qday Diet: PEG tube feedings resumed glucerna 1.2 at 40ml/hr, Code status: DNR/DNI Assessment and plan discussed with my attending physician Dr. Arthur Zaman ([id number])- Internal medicine resident Attending Provider Attestation/Addendum Patient seen and examined with above resident, Ryan Zaman MD. I agree with the findings, assessment, and plan of care as documented except for any differences below. Patient completed course of IV antibiotics for aspiration pneumonia with continued slow improvement and ability to wean off vasopressor support. Blood pressure remains on the low side likely in the setting of Takotsubo cardiomyopathy as well as severe hypothyroidism. Patient has tolerated hydrocortisone along with IV levothyroxine while. Patient mentation continues to be stable. However despite aggressive volume removal using diuretics and increased contractility using digoxin, patient developed intraperitoneal free air. Clinically she does not appear to have an acute abdomen. Did stop tube feeds today to allow for CT imaging and bowel rest. Patient did have bowel movement continues to have bowel sounds. There was no evidence of dislodgment of the feeding tube from the stomach though there is possible air was entrained around the gastrostomy site. Monitor overnight closely in the ICU. We did discuss findings and notified family immediately we are actually going to fit her home today to help arrange the planning as the patient likely has poor prognosis overall as we have explained to them given her multiple comorbidities and severe debility post remote CVA. The patient's daughter has at this point elected that the patient would be better served by being transferred home on hospice after surgical consultation also was in agreement the patient is a poor candidate for any intervention at this point. We will help arrange this for the family next 24 hours if the patient remained stable for discharge home for hospice may continue to be able to take care of her. Should she do well from a gastrointestinal perspective which is been reassuring given normal lactate and adequate central saturations suggesting both normal extraction and delivery in the setting of reduced ejection fraction but outside of cardiogenic shock. Maintain on diuretics for adequate fluid balance though they were held this morning due to potential development of worsening hemodynamics from intraperitoneal sepsis that has yet to evolve. Total critical care time: I personally spent 50 minutes for review of physiologic parameters, directing plan of care throughout the day, coordination of care with other specialties, and counseling patient's family at bedside. This is exclusive of time spent teaching housestaff or performing any separate billable procedures. Patient continues require critical care services for possible intraperitoneal sepsis in the setting of Takotsubo cardiomyopathy and severe hypothyroidism leading to shock. Patient continues to be at high risk for worsening morbidity and mortality and possibly with imminent warranting close monitoring and care only available in the intensive care unit.
[2024-04-16] MEDS: FLUCONAZOLE/NS 400 MG IVPB 400 MG/200 ML BAG 100 MG IV (19:57)
[2024-04-17] VITALS (54 sets, daily range): BP systolic 96–128; BP diastolic 48–79; PULSE 52–76; RESP 11–23; TEMP 36.2–36.6; O2SAT 94–99; BMI 18.8
[2024-04-17] MEDS: INSULIN LISPRO (AdmeLOG) 1 UNIT/0.01 ML UNIT SC ×2 (00:21→05:31)
[2024-04-17] MEDS: HYDROCORTISONE SOD SUCC INJ 100 MG VIAL IV ×2 (05:32→14:01)
[2024-04-17] MEDS: ENOXAPARIN SOD INJ 40 MG/0.4 ML SYRINGE SC (08:16)
[2024-04-17] MEDS: FLUCONAZOLE/NS 400 MG IVPB 400 MG/200 ML BAG 100 MG IV (08:16)
[2024-04-17] MEDS: DIGOXIN INJ 0.25 MG/ML AMP 2 ML 0.125 MG IVP (08:16)
[2024-04-17] MEDS: LEVOTHYROXINE INJ 100 mCg VIAL 60 MCG IV (08:17)
[2024-04-17] MEDS: FOLIC ACID INJ 1 MG/0.2 ML IVP (08:17)
[2024-04-17] MEDS: THIAMINE INJ 100 MG/ML VIAL 2 ML IVP (08:18)
[2024-04-17] MEDS: PANTOPRAZOLE INJ 40 MG VIAL IVP (08:18)
[2024-04-17 09:57] LABS: Basophils % (Auto) 0 % (0-2.5); Eosinophils % (Auto) 0 % (0-10); Hematocrit 25.3 % (36.0-46.0); Immature Granulocytes % (Auto) 0 % (0-0); Immature Granulocytes Auto 0.04 Thou/mm3 (0.00-0.00); Lymphocytes # (Auto) 0.5 Thou/mm3 (1.0-4.8); Lymphocytes % (Auto) 5 % (10-50); Mean Corpuscular HGB Conc 32.8 g/dl (31.0-37.0); Mean Corpuscular Hemoglobin 29.9 pg (25.0-35.0); Mean Corpuscular Volume 91 fL (80-100); Monocytes # (Auto) 0.1 Thou/mm3 (0.0-0.8); Monocytes % (Auto) 1 % (0-12); Neutrophils # (Auto) 9.1 Thou/mm3 (1.8-7.7); Neutrophils % (Auto) 93 % (37-80); Nucleated Red Blood Cell % 0 /100 WBC (0); Platelet Count 153 Thou/mm3 (140-440); Red Blood Count 2.78 Miln/mm3 (4.00-5.20); White Blood Count 9.7 Thou/mm3 (3.6-11.0)
[2024-04-17 10:06] LABS: Hemoglobin 8.3 g/dL (12.0-16.0)
[2024-04-17 10:27] LABS: Alanine Aminotransferase 15 U/L (10-49); Albumin/Globulin Ratio 1.3 (1.2-2.2); Alkaline Phosphatase 101 U/L (46-116); Anion Gap 4 (7-16); Aspartate Amino Transferase 26 U/L (0-34); BUN/Creatinine Ratio 55 Ratio (12-20); Bilirubin,Total 0.3 mg/dL (0.3-1.2); Blood Urea Nitrogen 22 mg/dL (9-23); Calcium 8.5 mg/dL (8.3-10.6); Calcium (Corrected) 9.3 mg/dL (8.5-10.1); Carbon Dioxide 37.4 mMol/L (20.0-31.0); Chloride 100 mMol/L (98-107); Creatinine (Component) 0.4 mg/dL (0.6-1.3); Estimated Creatinine Clearance 70.6 mL/min (>60); Globulin 2.3 gm/dL (2.3-3.5); Glucose 100 mg/dL (74-106); Magnesium 2.2 mg/dL (1.6-2.6); Osmolality,Calculated 284 (275-295); Potassium 2.9 mMol/L (3.4-5.1); Sodium 141 mMol/L (136-145); Total Protein 5.3 gm/dL (5.7-8.2); eGFR > 60 See Note
--- NOTE | 2024-04-17 10:55 | ESPR_ITS ---
Documentation for date of: 04/17/24 Subjective Subjective Interval history: Tolerating enteral feeding through the PEG tube No leakage at the PEG site Exam Vital Signs Temp Pulse Resp BP Pulse Ox O2 Del Method O2 Flow Rate 97.8 F 70 13 119/61 95 Room Air 2 04/17/24 08:00 04/17/24 08:16 04/17/24 08:00 04/17/24 08:16 04/17/24 08:00 04/17/24 08:00 04/16/24 19:00 FiO2 2 04/10/24 09:00 Objective Labs 04/17/24 09:24 04/17/24 09:24 Labs: Laboratory Results - last 24 hr 04/16/24 04/16/24 04/17/24 12:40 16:12 09:24 WBC 9.7 D RBC 2.78 L Hgb 8.3 L Hct 25.3 L MCV 91 MCH 29.9 MCHC 32.8 RDW Std Deviation 49.0 H Plt Count 153 Neut % (Auto) 93 H Lymph % (Auto) 5 L [place] % (Auto) 1 Eos % (Auto) 0 Baso % (Auto) 0 Neut # (Auto) 9.1 H Lymph # (Auto) 0.5 L [place] # (Auto) 0.1 Eos # (Auto) 0.0 Baso # (Auto) 0.0 Immature Gran # (Auto) 0.04 H Absolute Nucleated RBC 0.00 Immature Gran % 0 Nucleated RBC % 0 VBG pH 7.53 VBG pCO2 48 VBG pO2 36 VBG O2 Sat (Kathy) 72 L VBG Base Excess 16 H Sodium 141 Potassium 2.9 L Chloride 100 Carbon Dioxide 37.4 H Anion Gap 4 L BUN 22 Creatinine 0.4 L Estim Creat Clear Calc 70.6 eGFR > 60 BUN/Creatinine Ratio 55 H Glucose 100 D Calculated Osmolality 284 Lactic Acid 2.7 H 1.4 Calcium 8.5 Corrected Calcium 9.3 Magnesium 2.2 Total Bilirubin 0.3 AST 26 ALT 15 Alkaline Phosphatase 101 D Total Protein 5.3 L Albumin 3.0 L D Globulin 2.3 Albumin/Globulin Ratio 1.3 Impressions Impression: # Failure to thrive # Enteral feeding via the PEG tube Continue current management ABG Interpretation ABG results: 03/30/24 04/01/24 04/01/24 13:55 10:25 17:20 ABG pH 7.48 H 7.52 H 7.47 H ABG pCO2 34 31 L 34 ABG pO2 300 H 155 H D 36 L* D ABG HCO3 25 25 25 ABG O2 Saturation 100 H 100 H 70 L ABG Base Excess 2 3 1 VBG pH VBG pCO2 VBG pO2 VBG Base Excess 04/04/24 04/11/24 04/12/24 13:52 11:50 02:45 ABG pH ABG pCO2 ABG pO2 ABG HCO3 ABG O2 Saturation ABG Base Excess VBG pH 7.43 7.46 7.55 VBG pCO2 19 L 41 35 L VBG pO2 136 H 35 33 VBG Base Excess -10 L 5 H 8 H 04/13/24 04/13/24 04/14/24 12:58 15:30 05:45 ABG pH ABG pCO2 ABG pO2 ABG HCO3 ABG O2 Saturation ABG Base Excess VBG pH 7.48 7.54 7.55 VBG pCO2 42 37 37 VBG pO2 46 41 32 VBG Base Excess 7 H 8 H 10 H 04/16/24 04/16/24 09:30 16:12 ABG pH ABG pCO2 ABG pO2 ABG HCO3 ABG O2 Saturation ABG Base Excess VBG pH 7.52 7.53 VBG pCO2 47 D 48 VBG pO2 40 36 VBG Base Excess 14 H 16 H Assessment & Plan A&P Narrative 79-year-old female with past medical history of hypertension, hyperlipidemia, 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 1. Acute decompensated systolic heart failure (EF 45 to 50%) 2. NSTEMI 3. Essential hypertension ?Given patient's elevated troponins which peaked at 1.033 and down trended this is most likely NSTEMI type II likely demand ischemia ?Given patient is a poor candidate for heart catheterization at this time due to other comorbidities we will treat medically for now ?Patient's blood pressure has been under control during her hospital stay. ?Echo done on 03/31/2024 has had the following findings: Negative bubble study. TTE is suboptimal to rule out PFO or ASD. Consider GLORIA if high clincial suspicion. Normal LV size. Moderate to severe LV systolic dysfunction with an EF of around 35 to 40%.Severe hypokinesis of the mid to apical septum, apical anterior and apical anterolateral segments and akinetic apex indicating possible LAD involvement versus Takotsubo syndrome. Difficult to comment on apical thrombus due to lack of definity. Normal RV size and function. Mild TR Moderate MAC. Mild MR Mild AV sclerosis without stenosis with mild AI. ?Patient most likely has some underlying CAD, but given multiple comorbidities and current clinical status she is not a good candidate for heart catheterization and family is aware of this and are in agreement. ? Patient's differential diagnosis includes Takotsubo versus LAD involvement given her, but given her multiple comorbidities, bedbound status, and severe contractions she is not a good candidate for heart catheterization given that she could not lay flat on the [place] table. Should be attributed medically for now. -Echo on 04/05/2024 had the following findings: Normal left ventricular size, wall thickness. Low normal systolic function. Estimated 45-50%. RV is normal in size and systolic function. The estimated RVSP, 34 mmHg. RAP 5. Moderate MAC. Mild to moderate MR. Mild sclerosis without stenosis. Mild AI. -Findings showed significant improvement, but was on pressors and could indicate possible Takotsubo syndrome which could be possibly secondary to the sepsis Plan: ?Recommend to hold off on goal-directed medical therapy with beta-devon, Entresto as well as spironolactone as patient is still hypotensive and requiring increase of vasopressor. -can start patient in oral diuresis if BP allows and patient becomes fluid overloaded. ?Patient should also be on aspirin and statin ?No need to trend troponins 04/13/2024: Patient's TSH was 20.58 as well as free T4 was 0.467 during this admission and patient is only oral thyroxine and was given additional loading dose of levothyroxine 20 mcg IV along with some hydrocortisone. Patient started on treatment for hypothyroidism based on her clinical picture and was tapered off vasopressors yesterday Patient developed fever and some cough and is on IV antibiotics and started on pressors again and is only on vasopressin during my visit today. Heart rate is well-controlled and patient still continues to be in atrial fibrillation but rate well-controlled. Hemoglobin better after the transfusions. Patient did receive digoxin but is on hold as the patient is hypokalemic. Telemetry shows intermittent A-fib Continue to monitor telemetry closely Continue midodrine 10 mg 3 times a day. Continue to monitor in ICU for another 24 hours before she can be transferred out if hemodynamically stable and does not require pressors anymore 4. Acute encephalopathy 5. Hypoglycemia 6. DM2 ?Patient has been taking glyburide 5 mg as well as metformin 625 mg 3 times daily which could have precipitated his patient hypoglycemia in the event that she has been having poor oral intake. ? Continue current management as per primary care team 7. Failure to thrive ?Patient may benefit from PEG tube placement as she has been having poor oral intake for the past few weeks. ? Recommend to follow GI recommendations ? Continue current management as per primary care team 8. CVA with residual right-sided deficits 9. Hyperlipidemia ? Continue current management as primary care team Management of rest of the medical conditions as per primary team and other consultants. Thank you for the consult and allowing me to participate in the care of the patient. Cardiology will continue to follow. Rao Dodson M.D. Interventional Cardiology Time Spent With Patient Time: Total time spent is greater than 50% in coordination of care (as documented) at patient's floor/unit and/or counseling patient:
--- NOTE | 2024-04-17 11:03 | PC.SS ---
SS spoke to pt family/dtr Nayla at bedside, they have hospital bed and are ready to receive pt at home between [phone]. SS reached out to Ana with [facility], no answer, VM left and message also left via [facility].
--- NOTE | 2024-04-17 11:15 | PC.SS ---
SS spoke to Al Kimble. Glucerna 1.2 2 bottles provided at to pt until [facility] can provide. Ana with [facility] made aware.
[2024-04-17] MEDS: POTASSIUM CHLORIDE 10% 20 MEQ/15 ML UDC 40 MEQ GT ×2 (11:54→16:00)
[2024-04-17] MEDS: POTASSIUM CHL 20 mEq IVPB 20 MEQ/100 ML BAG 50 MEQ IV ×2 (11:54→13:59)
[2024-04-17] MEDS: ACETAMINOPHEN 325 MG TABLET PO (12:11)
--- NOTE | 2024-04-17 12:34 | PD.RESPRO ---
Documentation for date of: 04/17/24 Exam Vital Signs Temp Pulse Resp BP Pulse Ox O2 Del Method O2 Flow Rate 97.8 F 65 22 H 105/48 L 98 Room Air 2 04/17/24 08:00 04/17/24 12:00 04/17/24 11:15 04/17/24 11:15 04/17/24 11:15 04/17/24 11:15 04/16/24 19:00 FiO2 2 04/10/24 09:00 Objective Labs 04/17/24 09:24 04/17/24 09:24 Labs: Laboratory Results - last 24 hr 04/16/24 04/16/24 04/17/24 12:40 16:12 09:24 WBC 9.7 D RBC 2.78 L Hgb 8.3 L Hct 25.3 L MCV 91 MCH 29.9 MCHC 32.8 RDW Std Deviation 49.0 H Plt Count 153 Neut % (Auto) 93 H Lymph % (Auto) 5 L [place] % (Auto) 1 Eos % (Auto) 0 Baso % (Auto) 0 Neut # (Auto) 9.1 H Lymph # (Auto) 0.5 L [place] # (Auto) 0.1 Eos # (Auto) 0.0 Baso # (Auto) 0.0 Immature Gran # (Auto) 0.04 H Absolute Nucleated RBC 0.00 Immature Gran % 0 Nucleated RBC % 0 VBG pH 7.53 VBG pCO2 48 VBG pO2 36 VBG O2 Sat (Kathy) 72 L VBG Base Excess 16 H Sodium 141 Potassium 2.9 L Chloride 100 Carbon Dioxide 37.4 H Anion Gap 4 L BUN 22 Creatinine 0.4 L Estim Creat Clear Calc 70.6 eGFR > 60 BUN/Creatinine Ratio 55 H Glucose 100 D Calculated Osmolality 284 Lactic Acid 2.7 H 1.4 Calcium 8.5 Corrected Calcium 9.3 Magnesium 2.2 Total Bilirubin 0.3 AST 26 ALT 15 Alkaline Phosphatase 101 D Total Protein 5.3 L Albumin 3.0 L D Globulin 2.3 Albumin/Globulin Ratio 1.3 ABG Interpretation ABG results: 03/30/24 04/01/24 04/01/24 13:55 10:25 17:20 ABG pH 7.48 H 7.52 H 7.47 H ABG pCO2 34 31 L 34 ABG pO2 300 H 155 H D 36 L* D ABG HCO3 25 25 25 ABG O2 Saturation 100 H 100 H 70 L ABG Base Excess 2 3 1 VBG pH VBG pCO2 VBG pO2 VBG Base Excess 04/04/24 04/11/24 04/12/24 13:52 11:50 02:45 ABG pH ABG pCO2 ABG pO2 ABG HCO3 ABG O2 Saturation ABG Base Excess VBG pH 7.43 7.46 7.55 VBG pCO2 19 L 41 35 L VBG pO2 136 H 35 33 VBG Base Excess -10 L 5 H 8 H 04/13/24 04/13/24 04/14/24 12:58 15:30 05:45 ABG pH ABG pCO2 ABG pO2 ABG HCO3 ABG O2 Saturation ABG Base Excess VBG pH 7.48 7.54 7.55 VBG pCO2 42 37 37 VBG pO2 46 41 32 VBG Base Excess 7 H 8 H 10 H 04/16/24 04/16/24 09:30 16:12 ABG pH ABG pCO2 ABG pO2 ABG HCO3 ABG O2 Saturation ABG Base Excess VBG pH 7.52 7.53 VBG pCO2 47 D 48 VBG pO2 40 36 VBG Base Excess 14 H 16 H Quality Measures Quality Measures sepsis Possible source: unknown Blood cultures ordered: completed in ED Assessment & Plan Assessment Current Active Medications: Generic Name Dose Route Start Last Admin Trade Name Freq PRN Reason Stop Dose Admin Acetaminophen 650 mg 03/30/24 16:17 Acetaminophen 325 Mg Tablet PO 04/29/24 16:16 Q6H PRN Fever >101.5 Acetaminophen 650 mg 03/30/24 16:17 04/16/24 09:51 Acetaminophen 325 Mg Tablet PO 04/29/24 16:16 650 mg Q6H PRN Administration PAIN SCALE 1-3 (mild Aspirin 81 mg 04/06/24 07:35 04/16/24 08:07 Aspirin 81 Mg Chew NG 05/01/24 18:44 81 mg QDAY ROGER Administration Atorvastatin Calcium 80 mg 04/06/24 07:35 04/15/24 21:08 Atorvastatin Calcium 20 Mg Tablet NG 05/01/24 20:59 80 mg HS ROGER Administration Calcium Carbonate 600 mg 04/03/24 09:45 04/16/24 08:06 Calcium Carbonate 600 Mg Tablet NG 05/03/24 09:44 600 mg QDAY ROGER Administration Dextrose 25 ml 03/30/24 16:22 04/01/24 04:58 Dextrose 50%-Water Inj 50 Ml Syringe IV 04/29/24 16:21 25 ml Q15MIN PRN Administration BG 50-70 responsive npo pt Dextrose 50 ml 03/30/24 16:22 Dextrose 50%-Water Inj 50 Ml Syringe IV 04/29/24 16:21 Q15MIN PRN BG <50 OR BG <70 & pt unresponsive Digoxin 0.125 mg 04/11/24 15:45 04/17/24 08:16 Digoxin Inj 0.25 Mg/Ml Amp 2 Ml IVP 05/11/24 15:44 0.125 mg QDAY ROGER Administration Enoxaparin Sodium 40 mg 04/04/24 09:00 04/17/24 08:16 Enoxaparin Sod Inj 40 Mg/0.4 Ml Syringe SC 04/18/24 08:59 40 mg QDAY ROGER Administration Ferrous Sulfate 300 mg 04/13/24 08:00 04/16/24 07:29 Ferrous Sulfate 300 Mg/5 Ml Udc PO 05/13/24 07:59 300 mg WBR ROGER Administration Folic Acid 1 mg 03/30/24 16:45 04/17/24 08:17 Folic Acid Inj 1 Mg/0.2 Ml IVP 04/29/24 16:44 1 mg QDAY ROGER Administration Furosemide 20 mg 04/15/24 10:30 04/16/24 08:19 Furosemide Inj 10 Mg/Ml 4ml Vial IVP 05/15/24 10:29 20 mg BID ROGER Administration Glucagon 1 mg 03/30/24 16:22 Glucagon Inj 1 Mg Vial IM Q15MIN PRN BG <70, and no IV access Hydrocortisone Sodium Succinate 100 mg 04/13/24 14:00 04/17/24 05:32 Hydrocortisone Sod Succ Inj 100 Mg Vial IV 05/13/24 13:59 100 mg Q8HR ROGER Administration Dopamine HCl/Dextrose 400 mg in 250 mls @ 7.463 mls/hr 04/16/24 13:47 04/17/24 08:20 Intropin In D5w Ivpb IV 05/16/24 13:46 0 mcg/kg/min .Q24H ROGER 0 mls/hr Titration Protocol 5 MCG/KG/MIN Fluconazole 400 mg in 200 mls @ 100 mls/hr 04/16/24 19:24 04/17/24 08:16 Diflucan/Ns Ivpb IV 04/23/24 19:23 100 mls/hr QDAY ROGER Administration Potassium Chloride 20 meq in 100 mls @ 50 mls/hr 04/17/24 11:40 04/17/24 11:54 Kcl Ivpb IV 04/17/24 15:39 50 mls/hr Q2H ROGER Administration Insulin Human Lispro 0 unit 03/30/24 17:00 04/17/24 12:08 Insulin Lispro (Admelog) 1 Unit/0.01 Ml Unit SC 04/29/24 16:59 Not Given Q6HR ROGER Protocol Levothyroxine Sodium 75 mcg 04/17/24 06:00 Levothyroxine Sodium 25 Mcg Tablet GT 05/17/24 05:59 ACBR ROGER Levothyroxine Sodium 60 mcg 04/17/24 08:00 04/17/24 08:31 Levothyroxine Inj 100 Mcg Vial IV 05/17/24 07:59 Not Given QDAY ROGER Protocol Magnesium Oxide 400 mg 04/10/24 09:00 04/16/24 08:06 Magnesium Oxide 400 Mg Tablet GT 05/11/24 15:00 400 mg BID ROGER Administration Midodrine 15 mg 04/16/24 14:00 04/16/24 13:49 Midodrine 5 Mg Tablet NG 05/16/24 13:59 15 mg TID ROGER Administration Multivitamins/Minerals 15 ml 04/05/24 16:45 04/16/24 08:05 Multivitamin 15 Ml Udc GT 05/05/24 16:44 15 ml QDAY ROGER Administration Ondansetron HCl 4 mg 03/30/24 16:17 Ondansetron Inj 2 Mg/Ml Inj 2 Ml IV 04/29/24 16:16 Q6H PRN NAUSEA OR VOMITING Protocol Pantoprazole Sodium 40 mg 03/30/24 16:30 04/17/24 08:18 Pantoprazole Inj 40 Mg Vial IVP 04/29/24 16:29 40 mg QDAY ROGER Administration Polyethylene Glycol 17 gm 04/10/24 09:00 04/16/24 08:11 Polyethylene Glycol 17 Gm Packet PO 05/10/24 08:59 17 gm QDAY ROGER Administration Potassium Phos/Sodium Phos 1 packet 04/16/24 09:00 04/16/24 08:06 [facility]db 1 Packet (1.5 Gm) PO 04/21/24 08:59 1 packet BID ROGER Administration Sennosides 8.8 mg 04/06/24 17:33 04/07/24 08:03 Sennosides Syrup 8.8 Mg/5 Ml Udc NG 05/06/24 17:32 8.8 mg QDAY PRN Administration CONSTIPATION Protocol Thiamine HCl 100 mg 03/30/24 16:45 04/17/24 08:18 Thiamine Inj 100 Mg/Ml Vial 2 Ml IVP 04/29/24 16:44 100 mg QDAY ROGER Administration
--- NOTE | 2024-04-17 12:38 | PC.SS ---
SS set up transportation with [facility] transportation, Reference # [id number]. SS was informed by Patient's nurse Myesha to set up transportation for [id number].
--- NOTE | 2024-04-17 15:11 | ESDS_ITS ---
Planned Discharge Date 04/17/24 DS: Providers Provider Date of admission: 03/30/24 16:17 Primary care physician: Physician No Primary/Family Admitting Provider: Tony Manning MD Attending Provider on Admission: Jose Gibson MD Consults: 03/30/24 16:24 Referral Speech Therapy Stat Comment: 03/30/24 16:38 Referral Registered Dietitian Stat Comment: Instructions: MAY FEED PT NOW 03/30/24 18:26 Consult to Neurology / Tele-Neurology Routine Comment: Consulting Provider: Jimbo Coello 03/30/24 18:59 Consult to Gastroenterology Routine Comment: [employer] Consulting Provider: Supa Hinojosa 03/31/24 02:46 Referral Wound Care Routine Comment: Instructions: new admit, leonel heels stage one, sacrum stage 2, buttock pi, left hip 03/31/24 03:12 Referral Nutritional Services Routine Comment: Referral Wound Care Routine Comment: 04/01/24 07:51 Consult to Cardiology Stat Comment: Consulting Provider: Rao Dodson 04/01/24 15:32 Referral Discharge Planning Routine Comment: Instructions: Wound care on discharge for pressure injuries 04/15/24 17:30 Referral Hospice Routine Comment: 04/16/24 12:06 Consult to General Surgery Stat Comment: Consulting Provider: Tien Khoury Attending Provider on DC: Ryan Zaman MD Discharging Provider: Ryan Zaman MD DS: Diagnosis Problem List Completed Was Problem List Reviewed/Reconciled?: Yes Hospital Course Hospital Course Hospital course: Ms. 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 On arrival patient blood glucose was found to to be 13 and she was given a D10 which improved her mentation. Chest x-ray was positive for pneumonia, CT of the head was showed no acute hemorrhage or mass effect and Head/Neck CTA showed 90% plus stenosis right carotid bifurcation proximal right internal carotid artery, No cerebral large vessel arterial occlusions. CT abdomen pelvis showed pneumonia and some rectal wall thickening. Patient was admitted to the hospital for MRI and echo as part of the stroke protocol and GI consulted for PEG tube placement (which was placed on 04/08/24) due to poor oral intake and failure to thrive. Patient was started on antibiotics and Neurology was consulted and per neurology recommendation patient was started on aspirin and statin therapy. On 04/02/2024 rapid response was called due to hypotension, despite 2 L of IV fluid bolus and midodrine patient had no improvement in blood pressure therefore decision was made to upgrade the patient to ICU for pressor support. Patient was found to have cardiogenic shock due to combination of takotsubo cardiomyopathy (echo on 03/31/24 showing Moderate to severe LV systolic dysfunction with an EF of around 35 to 40% and repeat echo on 04/05 show EF estimated 45-50%), patient continued to be on multiple pressor support to help increase blood pressure. After several days of pressor support did not improve as anticipated. Repeat imaging reveled patient had pleural effusions with worsening pneumonia. Appropriate antibiotic treatment was started with improvement of the effusions and pneumonia. On 04/16/24, routine chest x-ray showed free air beneath the right hemidiaphragm, CT of abdomen/pelvis confirmed Extensive pneumoperitoneum, General surgery was consulted and recommended against ex lap, as patient is too unstable and deemed not a surgical candidate. Patient interestingly did not complain of any abdominal pain, and no abdominal distention was noted on physical exam and patient continued to have normal bowel movements daily. The patients family decided against such intervention, and want to take their mother home. Although, there is free air in the abdomen on images, the ICU team explained to the patients daughter Tamia, that the free air may not be from perforation given patient is asymptomatic and no abdominal distention. But unable to confirm as patient is not a surgical candidate. Given patients poor prognosis due to multiple comorbidities, and current functional status (as patient is bed bound with worsening multiple stage 3 sacral ulcers), the patient's clinical condition has progressively declined, with significant functional deterioration, and the prognosis is now limited, with life expectancy of 6 months. Despite attempts at curative treatment, the patient and family has expressed a desired to transition to hospice care, focusing on comfort rather than further aggressive interventions. The patients code status is DNR/DNI, given the patients clinical decline and the goal of improving quality life through palliative care, the patient is appropriate for hospice services, where symptom management, emotional support of family members and end of life care will be provided. Family members are involved in the patient's care and are seeking additional guidance on managing the patients comfort at home. Patient is referred to [facility]. #History of CVA with residual deficit on the right side #Shock secondary to combination of sepsis and takotsubo cardiomyopathy #Newly diagnosed CHF #Hx of Hypertension #hypokalemia #Hx of Hyperllipidemia #Hx of Diabetes Mellitus type ll #Hx of hypothyroidism #Pleural effusions # Aspiration pneumonia likely in the setting of dysphagia #Bacteremia #leukocytosis #pneumoperitoneum #Severe Malnutrition #Acute Anemia #Sacral ulcer Assessment and plan discussed with my attending physician Dr. Arthur Zaman ([id number]-1)- Internal medicine resident Status at Discharge Functional status at discharge: bed bound Time Spent with Patient Time attestation: Total time spent providing and/or coordinating discharge services: Exam Vital Signs Temp Pulse Resp BP Pulse Ox O2 Del Method O2 Flow Rate 97.1 F 62 13 110/54 L 97 Room Air 2 04/17/24 12:00 04/17/24 14:00 04/17/24 14:00 04/17/24 14:00 04/17/24 14:00 04/17/24 14:00 04/16/24 19:00 FiO2 2 04/10/24 09:00 Narrative Exam GENERAL: Awake, elderly thin female, Not in acute distress, non verbal but is able to follow command NEURO: alert, motor deficit in the right and upper and lower extremities HEENT: Atraumatic, Normocephalic. mucous membranes moist. Eyes open, symmetrical, & clear HEART: Faint Heart Sounds LUNGS: Clear breath sounds bilaterally ABDOMEN: soft, non-distended, non-tender, bowel sounds heard, no guarding or rebound tenderness, PEG tube in place SKIN: 2 sacral ulcers- stage 3 EXTREMITIES: no edema noted on upper and lower extremities, pedal pulses palpated, contracted lower extremities Discharge Plan Plan Patient Disposition: Home w/HOSPICE Disposition Comment: [facility] Patient condition on transfer: Benefits outweigh risks Prescriptions/Referrals Prescriptions/Med Rec: New aspirin 81 mg tablet,chewable 81 mg PO QDAY Qty: 30 0RF atorvastatin 80 mg tablet 80 mg PO QPM Qty: 30 0RF levothyroxine 75 mcg capsule 75 mcg PO QDAY Qty: 30 0RF fluconazole 200 mg tablet 400 mg PO QDAY Qty: 60 0RF ciprofloxacin HCl 500 mg tablet 500 mg PO BID Qty: 14 0RF furosemide 40 mg tablet 40 mg PO QAM Qty: 30 0RF midodrine 5 mg tablet 15 mg PO TID 30 Days Qty: 270 0RF Rx Instructions: do not give last dose of day after 6PM or within 4 hrs of bedtime prednisolone sodium phosphate 10 mg tablet,disintegrating 10 mg PO QDAY Qty: 7 0RF Rx Instructions: Take 3 tablets on first day after discharge. Take 2 tablets on second day after discharge. Take 1 tablet for two days after that. Continued ascorbic acid (vitamin C) 1,000 mg tablet 1,000 mg PO DAILY glyburide 5 mg tablet 5 mg PO DAILY Patient Comments: TAKE ONE TABLET BY MOUTH WITH BREAKFAST OR first main meal of THE DAY cyanocobalamin (vitamin B-12) 1,000 mcg tablet 3,000 mcg PO DAILY Patient Comments: TAKE THREE TABLETS BY MOUTH EVERY DAY cholecalciferol (vitamin D3) 25 mcg (1,000 unit) capsule 25 mcg PO DAILY Patient Comments: TAKE ONE CAPSULE BY MOUTH EVERY DAY metformin 625 mg tablet 625 mg PO TID Patient Comments: TAKE ONE TABLET BY MOUTH THREE TIMES DAILY WITH FOOD Discontinued atorvastatin 40 mg tablet 40 mg PO HS Patient Comments: TAKE ONE TABLET BY MOUTH EVERY DAY levothyroxine 50 mcg tablet 50 mcg PO HANNAH Patient Comments: TAKE ONE TABLET BY MOUTH EVERY MORNING ON AN EMPTY STOMACH Referrals: No Primary/Family,Physician [Primary Care Provider] - Patient/Caregiver Discharge Instructions Other Discharge Activity Instructions:: Wound care: 1) UNSTAGEABLE TO SACRUM AND STAGE 2 WITH SHEERINGTO LEFT BUTTOCK: CLEANSE WELL WITH WOUND CLEANSER, PAT DRY, APPLY Medihoney to wound bed. Layer with ALGINATE TO WOUND BED, SKIN PREP TO SAPNA WOUND AND COVER WITH ALLYVEN daily and PRN for soiling Side to side repostioning except for meals 2) LEFT HIP STAGE 1: KEEP COVERED WITH ALLYVEN AND MONITOR Q SHIFT. 3) LEONEL HEELS STAGE ONE: COVER WITH ALLYVEN AND ZERO HEEP PRESSURE IN BED. MONITOR QSHIFT FOR CHANGES. Education Materials: Starting Hospice, Nutrition for Wound Healing, What Is Pneumonia?, Pressure Injury Dc, Discharge Instructions Wound ... Print Language: Luxembourgish Stand Alone Forms: Steff Award Info., Patient Portal Info Letter Discharge Order Discharge Orders: Discharge (Routine); Ordered 04/17/24 Ordered By: Ryan Zaman Quality Discharge Quality Measures comfort care/end of life MD Attestestation MD Attestation Patient seen and examined with above resident, Alka Zaman MD. I agree with the findings, assessment, and plan of care as documented except for any differences below. Patient 24 hours out from potential for bowel perforation. Appreciate surgical input. Serial abdominal examinations show continue soft and patient is in fact having bowel movements. Overall mortality continues to be significantly elevated given her history of peripheral artery disease status post CVA and Takotsubo cardiomyopathy superimposed with septic shock secondary to pneumonia which has now improved. Patient has been successfully weaned off of vasopressors and transition to p.o. midodrine. With intra-abdominal sepsis as a potential concern, patient was adequately monitored for 24 hours and has remained hemodynamically stable without development of shock suggesting that this may be air entrainment from around PEG tube and not true perforation of the bowel. We did challenge her with tube feeding for multiple hours prior to planned discharge on home hospice. Patient's family aware of poor prognosis and we did clarify with the hospice agency role for course of antibiotics to allow to facilitate transfer and optimization prior to withdrawal of all intervention. Patient has been removed from optimize medical therapy for cardiomyopathy. Lasix can be continued for the patient's comfort secondary to avoidance of significant edema that she may develop renal dysfunction if she does not have adequate intake. Patient continues to receive tube feeds and tolerate oral diet as tolerated. I suspect the patient will do well for short period later will be difficult for the patient and her family to continue to care for her without need for hospice management, patient's overall prognosis suggest that she has not has less than 6 months of survival. I am appreciative of the service for the patient so that she may be at home and be comfortable with the family as this was their goal. Patient and family updated on plan of care and agreeable for discharge today home once hospice resources have been set up, we have confirmed that she has been sent equipment already. Discharge summary has been made available for hospice service to see which medications to continue for 1 duration including antibiotics/antifungal coverage for potential perforation/limited peritonitis. Patient continue on levothyroxine and steroids taper as planned to avoid sudden discontinuation of hormonal support as well. Total discharge time: I personally spent 45 minutes for review of physiologic parameters, directing plan of care, coordination of care with case management/hospice service, and counseling the patient and her family at bedside. This is exclusive of time spent teaching housestaff or performing any separate billable procedures.
--- NOTE | 2024-04-17 16:33 | PC.SS ---
SS follow up note; [facility] will be transporting patient home with hospice at 1730. SS informed family at bedside.
[2024-05-03 06:55] LABS: Cortisol,total,LC/MS/MS* 115.4 mcg/dL
== END 2024-04-17 17:33 | disposition hospice, home (50) | DRG 871 ==
LOC: SERX 16:52 → SERHOLD 16:58 → S2NX 23:49 → S2SX 04-03 07:59 → S2NX 04-05 13:37
PROVIDERS: Internal Medicine; Internal Medicine Cardiovascular Disease; Specialist; Student in an Organized Health Care Education/Training Program; Admitting Provider Internal Medicine; Emergency Provider Emergency Medicine; Visit Provider Internal Medicine Critical Care Medicine
PROC: 0DH63UZ Insertion of Feeding Device into Stomach, Percutaneous Approach (ICD-10-PCS; CPT 43246; principal; 2024-04-08 19:00)
DX: A41.01 Sepsis due to Methicillin susceptible Staphylococcus aureus (principal); E43 Unspecified severe protein-calorie malnutrition; G93.41 Metabolic encephalopathy; I21.A1 Myocardial infarction type 2; R65.21 Severe sepsis with septic shock; J18.9 Pneumonia, unspecified organism; J69.0 Pneumonitis due to inhalation of food and vomit; R57.0 Cardiogenic shock; I50.23 Acute on chronic systolic (congestive) heart failure; I69.351 Hemiplegia and hemiparesis following cerebral infarction affecting right dominant side; R64 Cachexia; Z68.1 Body mass index [BMI] 19.9 or less, adult; I51.81 Takotsubo syndrome; E87.1 Hypo-osmolality and hyponatremia; N17.9 Acute kidney failure, unspecified; E78.5 Hyperlipidemia, unspecified; E03.9 Hypothyroidism, unspecified; R68.0 Hypothermia, not associated with low environmental temperature; R32 Unspecified urinary incontinence; R62.7 Adult failure to thrive; E83.42 Hypomagnesemia; K20.90 Esophagitis, unspecified without bleeding; E87.8 Other disorders of electrolyte and fluid balance, not elsewhere classified; E88.09 Other disorders of plasma-protein metabolism, not elsewhere classified; I69.320 Aphasia following cerebral infarction; D64.9 Anemia, unspecified; E83.39 Other disorders of phosphorus metabolism; I11.0 Hypertensive heart disease with heart failure; I25.10 Atherosclerotic heart disease of native coronary artery without angina pectoris; I65.21 Occlusion and stenosis of right carotid artery; K56.41 Fecal impaction; K66.8 Other specified disorders of peritoneum; K82.8 Other specified diseases of gallbladder; L89.150 Pressure ulcer of sacral region, unstageable; L89.221 Pressure ulcer of left hip, stage 1; L89.322 Pressure ulcer of left buttock, stage 2; E11.649 Type 2 diabetes mellitus with hypoglycemia without coma; R13.10 Dysphagia, unspecified; E11.51 Type 2 diabetes mellitus with diabetic peripheral angiopathy without gangrene; I08.3 Combined rheumatic disorders of mitral, aortic and tricuspid valves; I48.91 Unspecified atrial fibrillation; E87.6 Hypokalemia; E83.51 Hypocalcemia; E86.1 Hypovolemia; T50.1X5A Adverse effect of loop [high-ceiling] diuretics, initial encounter; Z66 Do not resuscitate; Z51.5 Encounter for palliative care; Z74.01 Bed confinement status; Z79.84 Long term (current) use of oral hypoglycemic drugs; Z79.899 Other long term (current) drug therapy; Z79.890 Hormone replacement therapy
CPT/HCPCS: 36415; 36600; 70450; 70496; 70498; 70544; 71045; 74176; 80048; 80053; 80069; 80162; 80202; 80307; 80320; 80329; 81001; 82140; 82150; 82533; 82550; 82607; 82803; 83036; 83605; 83690; 83735; 83880; 84075; 84100; 84132; 84145; 84439; 84443; 84480; 84484; 85014; 85018; 85025; 85610; 85652; 85730; 86140; 86331; 86635; 86850; 86900; 86901; 86923; 87040; 87077; 87081; 87086; 87106; 87186; 87400; 87449; 87634; 87811; 92526; 92610; 93005; 93306; 94667; 96365; 96366; 96367; 96372; 96375; 99291; A4217; A4649; J0171; J0456; J0696; J1160; J1200; J1250; J1265; J1450; J1643; J1650; J1720; J1815; J1940; J2250; J2270; J2470; J2543; J2598; J3010; J3370; J3371; J3411; J3475; J3480; J3490; J7030; J7040; J7042; J7050; J7120; J7999; P9016; P9047; Q9967; A9270; G0480; J1644; J1836